=== PATIENT | male | born 1945 | race Caucasian/White ===

== ENCOUNTER 2021-03-01 14:28 | Outpatient (REF) | payer MEDICARE, OTHER, SELFPAY | END 2021-03-01 14:29 | disposition home or self-care (01) | LOC: HO.LAB 14:28 | PROVIDERS: Visit Provider Physician Assistant Medical | DX: Z20.822 Contact with and (suspected) exposure to COVID-19 (principal); B34.9 Viral infection, unspecified | CPT/HCPCS: U0003; U0005 ==

== ENCOUNTER 2021-08-30 08:28 | Outpatient (REF) | payer MEDICARE, OTHER, SELFPAY ==
[2021-08-30 08:55] LABS: COVID-19 Test Positive (Negative)
== END 2021-08-30 08:29 | disposition home or self-care (01) ==
LOC: HO.LAB 08:28
PROVIDERS: PCP Internal Medicine; Visit Provider Internal Medicine
DX: Z20.822 Contact with and (suspected) exposure to COVID-19 (principal)
CPT/HCPCS: 87635; C9803

== ENCOUNTER 2022-03-23 08:24 | Outpatient (REF) | payer MEDICARE, OTHER, SELFPAY ==
[2022-03-23 08:54] LABS: COVID-19 Test Negative (Negative); IDNOW Serial# 16C4AD1C
== END 2022-03-23 08:25 | disposition home or self-care (01) ==
LOC: HO.LAB 08:24
PROVIDERS: Visit Provider Internal Medicine
DX: Z20.822 Contact with and (suspected) exposure to COVID-19 (principal)
CPT/HCPCS: 87635; C9803

== ENCOUNTER 2024-05-29 09:36 | Emergency (ER) | payer OTHER, SELFPAY ==
[2024-05-29 09:59] VITALS: BP 145/58; PULSE 68; RESP 16; TEMP 37; O2SAT 98; BMI 35.4
--- OUTSIDE RECORDS SUMMARY | 2024-05-29 10:25 | XMS_ITS | Encounter Summary ---
Author Name [facility] [place] [facility] [place] [facility] [place] Address [address] [place] [id number] Care Team Providers Care Turnaround Planner Name Role Phone STACEY HORTON Primary Care Provider Unavaila [facility] Insurance Providers: All historical and current Section Date Range: From patient's date of to the date document was created. This section includes the names of all active insurance providers for the patient. Insurance Provider Type of Coverage Plan Name Start of Policy Coverage End of Policy Coverage Group Number Member ID Insurance Provider's Telephone Number Policy Pena's Name Patient's Relationship to Policy Pena [employer] PREFERRED PROVIDER ORGANIZAT ION (PPO) STAND YON SELF May 29, 2003 [id number] Abdullahi SEVERINO PATIENT MEDICARE (WNR) MEDICARE (M) PART B Jul 18, 2012 PART B [id number] Abdullahi SEVERINO PATIENT MEDICARE (WNR) MEDICARE (M) PART B Jul 18, 2012 PART B [id number] Abdullahi SEVERINO PATIENT MEDICARE (WNR) MEDICARE (M) PART B Jul 18, 2012 PART B [id number] [phone] Abdullahi SEVERINO PATIENT MEDICARE (WNR) MEDICARE (M) PART A Dec 19, 2011 PART A [id number] [phone] Abdullahi SEVERINO PATIENT MEDICARE (WNR) MEDICARE (M) PART A Dec 19, 2011 PART A [id number] Abdullahi SEVERINO PATIENT MEDICARE (WNR) MEDICARE (M) PART A Dec 19, 2011 PART A [id number] [id number] Abdullahi SEVERINO PATIENT Selected Encounter This section includes the information on record at [place] for the Encounter. Date/Time Encounter Type Encounter Description Reason Provider Source May 29, 2023 10:29 AM OFF/OP EST SEPTEMBER X REQ PHY/QHP GENERAL INTERNAL MEDICINE ICD-10-CM E11.9 Type 2 diabetes mellitus without complications GORGE COLLINS Afshin Encounter Template Text not used by [place] Assessments - Encounter Diagnoses This section includes the primary and secondary diagnoses documented for the Encounter. Date/Time Primary/Secondary Diagnosis Diagnosis Name Provider Source May 29, 2023 10:29 AM PRIMARY Type 2 diabetes mellitus without complications GORGE COLLINS [facility] Plan of Treatment: Future Appointments (+ 6 months) and Future Tests (+/- 45 days) The Plan of Treatment section includes future care activities for the [facility] This section includes future appointments and future orders which are active, pending or scheduled. Future Appointments This section includes appointments that were scheduled to occur 6 months from the date of the Encounter, up to a maximum of 20 appointments. The data comes from all [place] treatment facilities. Appointment Date/Time Appointment Type Appointme nt Facility Name Aug 07, 2023 10:00 AM AMBULATORY - MEDICINE [facility] Sep 04, 2023 10:00 AM AMBULATORY - MEDICINE [facility] [place] [facility] Sep 04, 2023 11:00 AM AMBULATORY - MEDICINE [facility] [place] [facility] Sep 05, 2023 09:00 AM AMBULATORY - MEDICINE [facility] [place] [facility] Sep 09, 2023 02:00 PM AMBULATORY - NONE [facility] [place] [facility] September 23, 2023 11:30 AM AMBULATORY - MEDICINE [facility] [place] [facility] October 04, 2023 11:00 AM [facility] Nov 20, 2023 10:00 AM AMBULATORY - MEDICINE [facility] Active, Pending, and Scheduled Orders This section includes a listing of several types of active, pending, and scheduled orders, including clinic medications orders, diagnostic test orders, procedure orders and consult orders; where the start date of the order is 45 days before the date of the Encounter or 45 days after the date of theEncounter. The data comes from all [place] treatment facilities. Test Date/Time Test Type Test Details Facility Name May 05, 2023 12:00 AM Laboratory - Chemistry Order HEMOGLOBIN A1C PANEL BLOOD (LAV-BLOOD) [facility] May 05, 2023 12:00 AM Laboratory - Chemistry Order BASIC METABOLIC PANEL (non-fasting) BLOOD (SST-SERUM) [facility] Vital Signs: All taken on the encounter date This section contains inpatient and outpatient Vital Signs collected on the date of the Encounter. Date/Time Temperature Pulse Blood Pressure Respiratory Rate SP02 Pain Height Weight Body Mass Index Source May 29, 2023 10:14 AM 97 F 66 /min 120/62 mm[Hg] 16 /min 98 % 3 251.4 lb [facility] Social History: Smoking Status (Most current) and Tobacco Use (All prior to encounter date) This section includes the most current, and the historical, smoking and tobacco- related health factors from the [place] facility where the Encounter took place. Current Smoking Status This section includes the most current smoking, or tobacco-related health factor, from the [place] facility where the Encounter took place. Date/Time Current Smoking Status Comment [facility] Apr 05, 2023 11:30 AM VA-TOBACCO FORMER USER [facility] Tobacco Use History This section includes a history of the smoking, or tobacco-related health factors, that were collected on or before the date of the Encounter. The data comes from the [place] facility where the Encounter took place. Date/Time Smoking Status/Tobac co Use Comment Facility Apr 05, 2023 11:30 AM CO-TOBACCO QUIT 15 YRS OR MORE [facility] Dec 28, 2021 09:30 AM VA-TOBACCO FORMER USER [facility] Dec 28, 2021 09:30 AM VA-TOBACCO QUIT 15 YRS OR MORE [facility] [place] [facility] Dec 02, 2020 09:00 AM VA-TOBACCO FORMER USER [facility] [place] [facility] Dec 02, 2020 09:00 AM VA-TOBACCO QUIT 15 YRS OR MORE [facility] [place] [facility] Aug 18, 2019 03:19 PM VA-TOBACCO FORMER USER [facility] [place] [facility] Aug 18, 2019 03:19 PM VA-TOBACCO QUIT 15 YRS OR MORE [facility] [place] [facility] September 23, 2018 09:58 AM VA-TOBACCO FORMER USER [facility] [place] [facility] September 23, 2018 09:58 AM VA-TOBACCO QUIT 15 YRS OR MORE [facility] [place] [facility] September 30, 2017 09:20 AM QUIT TOBACCO USE > 7 YEARS AGO [facility] [place] [facility] Aug 20, 2016 09:17 AM QUIT TOBACCO USE > 7 YEARS AGO quit 1991 [facility] [place] [facility] Jun 27, 2016 09:45 AM CURRENT SMOKER Quit 25 years ago [facility] [place] [facility] Apr 18, 2015 09:06 AM QUIT TOBACCO USE > 7 YEARS AGO quit in 1991 [facility] [place] [facility] Mar 21, 2005 10:12 AM HISTORY OF SMOKING [facility] [place] [facility] Mar 21, 2005 10:12 AM QUIT TOBACCO USE > 7 [facility] Advance Directives: All historical and current Section Date Range: From patient's date of to the date document was created. This section includes ALL of a patient's completed or amended [place] Advance and Rescinded Directives. The entries below indicate that a directive exists for the patient, but an actual copy is not included with this document. The data comes from all [place] facilities. Date Advance Directives Provider Source Feb 04, 2019 ADVANCE DIRECTIVE CESAR LUA [facility] Encounter Notes: All associated encounter notes This section contains the clinical notes associated to the Encounter. Date/Time Encounter Note(s) Provider Source May 29, 2023 10:31 AM DIABETOLOGY NOTE: LOCAL TITLE: GLUCOSE PATIENT METER DATA STANDARD TITLE: DIABETOLOGY NOTE DATE OF NOTE: MAY 29, 2023@10:31 ENTRY DATE: MAY 29, 2023@10:31:28 AUTHOR: GORGE COLLINS COSIGNER: URGENCY: STATUS: COMPLETED Name: CARL SEVERINO : 1945 ID: [id number] Information from [facility] on 05/29/2023 Patient Name: CARL SEVERINO Date Range: 05/16/2023 - 05/29/2023 bG values are displayed in mg/dL # of tests 36 Average 194 SD 59.4 Highest 372 Lowest 89 Avg tests/day 2.6 # HI 0 # LO 0 <70 0.0% 70-140 19.4% >140 80.6% Hypos(<50) 0 Date Range: 05/16/2023 - 05/29/2023 bG values are displayed in mg/dL 00:00- 05:30- 08:00- 11:00- 12:30- 17:00- 18:30- :30- 05:30 08:00 11:00 12:30 17:00 18:30 21:30 00:00 Jody 05/16/2023 224 266 155 05/17/2023 192 194 05/18/2023 187 189 186 05/19/2023 89 165 372 05/20/2023 107 05/21/2023 222 183 175 173 05/22/2023 132 346 Jody 05/23/2023 112 204 267 05/24/2023 182 225 05/25/2023 117 210 05/26/2023 218 240 05/27/2023 196 222 140 05/28/2023 259 186 185 165 05/29/2023 136 155 Date Range: 05/16/2023 - 05/29/2023 bG values are displayed in mg/dL 00:00- 05:30- 08:00- 11:00- 12:30- 17:00- 18:30- 21:30- 05:30 08:00 11:00 12:30 17:00 18:30 21:30 00:00 # of tests 3 4 14 3 4 0 1 7 Average 206 166 171 184 199 0 140 259 SD 63.1 50.3 44.7 34.4 23.5 0 75.5 Hi/Lo 0 0 0 0 0 0 0 0 Date Range: 05/16/2023 - 05/29/2023 bG values are displayed in mg/dL 05/16/2023 7:28 AM 224 8:58 AM 266 11:36 AM 155 05/17/2023 5:36 AM 192 9:47 AM 194 05/18/2023 9:39 AM 187 10:24 AM 186 10:23 PM 189 05/19/2023 8:16 AM 89 1:03 PM 165 10:32 PM 372 05/20/2023 9:20 AM 107 05/21/2023 1:18 AM 222 9:48 AM 183 11:18 AM 175 11:46 PM 173 05/22/2023 7:29 AM 132 11:23 PM 346 05/23/2023 8:01 AM 112 1:45 PM 204 10:36 PM 267 05/24/2023 10:27 AM 182 10:37 PM 225 05/25/2023 5:30 AM 117 4:22 PM 210 05/26/2023 12:48 PM 218 11:23 PM 240 05/27/2023 8:57 AM 196 12:02 PM 222 8:43 PM 140 05/28/2023 4:10 AM 259 9:35 AM 186 10:12 AM 185 10:56 AM 165 05/29/2023 1:51 AM 136 9:50 AM 155 End of information from [facility] // Gorge Collins LPN Licensed Practical Nurse Signed: 05/29/2023 10:32 GORGE COLLINS [facility] [place] [facility] May 29, 2023 10:29 AM DIABETOLOGY NOTE: LOCAL TITLE: INSULIN PUMP/CGM DOWNLOAD (T) STANDARD TITLE: DIABETOLOGY NOTE DATE OF NOTE: MAY 29, 2023@10:29 ENTRY DATE: MAY 29, 2023@10:29:42 AUTHOR: GORGE COLLINS EXP COSIGNER: URGENCY: STATUS: COMPLETED Please select: Personal Continuous Glucose Monitor Date of Documentation:May Please see attached scanned document in [facility]. Bhargav 2 Diabetes Type 2 Last upload was 05/07/2023. Also downloading Carola /skinny/ Gorge Collins LPN Licensed Practical Nurse Signed: 05/29/2023 10:31 GORGE COLLINS [facility]
--- OUTSIDE RECORDS SUMMARY | 2024-05-29 10:25 | XMS_ITS | Encounter Summary ---
Author Name [facility] [place] Address [address] [place] [address] Care Team Providers Care Staff Consultant Name Role Phone STACEY HORTON [facility] Insurance Providers: All historical and current Section [...] STAND YON SELF May 29, [phone] [id number] Abdullahi SEVERINO PATIENT MEDICARE (WNR) MEDICARE (M) PART B Jul 18, 2012 PART B [id number] Abdullahi SEVERINO PATIENT MEDICARE (WNR) MEDICARE (M) PART B Jul 18, 2012 PART B [id number] Abdullahi SEVERINO PATIENT MEDICARE (WNR) MEDICARE (M) PART B Jul 18, 2012 PART B [id number] Abdullahi SEVERINO PATIENT MEDICARE (WNR) MEDICARE (M) PART A Dec 19, 2011 PART A [id number] [phone] Abdullahi SEVERINO PATIENT MEDICARE (WNR) MEDICARE (M) PART A Dec 19, 2011 PART A [id number] [phone] Abdullahi SEVERINO PATIENT MEDICARE (WNR) MEDICARE (M) PART A Dec 19, 2011 PART A [id number] Abdullahi SEVERINO PATIENT Selected Encounter This section includes the information on record at [place] for the Encounter. Date/Time Encounter Type Encounter Description Reason Provider Source May 29, 2023 11:00 AM OFFICE O/P EST HI 40 MIN ENDOCRINOLOGY ICD-10-CM E11.9 Type 2 diabetes mellitus without complications VELASCODEISY Afshin Encounter Template Text not used by [place] Assessments - Encounter Diagnoses This section includes the primary and secondary diagnoses documented for the Encounter. Date/Time Primary/Secondary Diagnosis Diagnosis Name Provider Source May 29, 2023 12:03 PM PRIMARY Type 2 diabetes mellitus without complications [facility] [place] [facility] May 29, 2023 12:03 PM SECONDARY Chronic kidney disease, stage 1 [facility] [facility] May 29, 2023 12:03 PM SECONDARY Essential (primary) hypertension [facility] [place] [facility] May 29, 2023 12:03 PM SECONDARY Mixed hyperlipidemia [facility] [place] [facility] May 29, 2023 12:03 PM SECONDARY Obesity, unspecified [facility] [place] [facility] May 29, 2023 12:03 PM SECONDARY Type 2 diabetes mellitus w diabetic chronic kidney disease [facility] CNT [place] [facility] Plan of Treatment: Future Appointments (+ 6 months) and Future Tests (+/- 45 days) The Plan of Treatment section includes future care activities for the patient from all [place] treatmentfacilities. This section includes future appointments and future orders which are active, pending or scheduled. Future Appointments This section includes appointments that were scheduled to occur 6 months from the date of the Encounter, up to a maximum of 20 appointments. The data comes from all [place] treatment facilities. Appointment Date/Time Appointment Type Appointme nt Facility Name Aug 07, 2023 10:00 AM AMBULATORY - MEDICINE [place] [place] Sep 04, 2023 10:00 AM AMBULATORY - MEDICINE [place] [facility] Sep 04, 2023 11:00 AM AMBULATORY - MEDICINE [place] [facility] [place] [facility] Sep 05, 2023 09:00 AM AMBULATORY - MEDICINE [place] [facility] [place] [facility] Sep 09, 2023 02:00 PM AMBULATORY - NONE [place] [facility] September 23, 2023 11:30 AM AMBULATORY - MEDICINE [place] [facility] October 04, 2023 11:00 AM AMBULATORY - MEDICINE [place] [facility] Nov 20, 2023 10:00 AM [facility] Active, Pending, and Scheduled Orders This section includes a listing of several types of active, pending, and scheduled orders, including clinic medications orders, diagnostic test orders, procedure orders and consult orders; where the start date of the order is 45 days before the date of the Encounter or 45 days after the date of theEncounter. The data comes from all [facility]. Test Date/Time Test Type Test Details Facility Name May 05, 2023 12:00 AM Laboratory - Chemistry Order HEMOGLOBIN A1C PANEL BLOOD ([facility] May 05, 2023 12:00 AM Laboratory - Chemistry Order BASIC METABOLIC PANEL (non-fasting) BLOOD (SST-SERUM) [facility] Vital Signs: All taken on the encounter date This section contains inpatient and outpatient Vital Signs collected on the date of the Encounter. Date/Time Temperature Pulse Blood Pressure Respiratory Rate SP02 Pain Height Weight Body Mass Index Source May 29, 2023 10:14 AM 97 F 66 /min 120/62 mm[Hg] 16 /min 98 % 3 251.4 lb 35 [facility] Social History: Smoking Status (Most current) and Tobacco Use (All prior to encounter date) This section includes the most current, and the historical, smoking and tobacco- related health factors from the [place] facility where the Encounter took place. Current Smoking Status This section includes the most current smoking, or tobacco-related health factor, from the [place] facility where the Encounter took place. Date/Time Current Smoking Status Comment [facility] Apr 05, 2023 11:30 AM VA-TOBACCO FORMER USER [place] [facility] Tobacco Use History This section includes a history of the smoking, or tobacco-related health factors, that were collected on or before the date of the Encounter. The data comes from the [place] facility where the Encounter took place. Date/Time Smoking Status/Tobac co Use Comment Facility Apr 05, 2023 11:30 AM VA-TOBACCO QUIT 15 YRS OR MORE [place] [facility] [place] [facility] Dec 28, 2021 09:30 AM VA-TOBACCO FORMER USER [place] [facility] [place] [facility] Dec 28, 2021 09:30 AM VA-TOBACCO QUIT 15 YRS OR MORE [place] [facility] [place] [facility] Dec 02, 2020 09:00 AM VA-TOBACCO FORMER USER [place] [place] [facility] Dec 02, 2020 09:00 AM VA-TOBACCO QUIT 15 YRS OR MORE [place] [facility] [place] [facility] Aug 18, 2019 03:19 PM VA-TOBACCO FORMER USER [place] [facility] [place] [facility] Aug 18, 2019 03:19 PM VA-TOBACCO QUIT 15 YRS OR MORE [place] [facility] [place] [facility] September 23, 2018 09:58 AM VA-TOBACCO FORMER USER [place] [facility] [place] [facility] September 23, 2018 09:58 AM VA-TOBACCO QUIT 15 YRS OR MORE [place] [facility] [place] [facility] September 30, 2017 09:20 AM QUIT TOBACCO USE > 7 YEARS AGO [place] [facility] [place] [facility] Aug 20, 2016 09:17 AM QUIT TOBACCO USE > 7 YEARS AGO quit 1991 [place] [facility] [place] [facility] Jun 27, 2016 09:45 AM CURRENT SMOKER Quit 25 years ago [place] [facility] [place] [facility] Apr 18, 2015 09:06 AM QUIT TOBACCO USE > 7 YEARS AGO quit in 1991 [place] [facility] [place] [facility] Mar 21, 2005 10:12 AM HISTORY OF SMOKING [place] [facility] [place] [facility] Mar 21, 2005 10:12 AM QUIT TOBACCO USE > 7 YEARS AGO [place] [facility] [place] [facility] Advance Directives: All historical and current Section Date Range: From patient's date of to the date document was created. This section includes ALL of a patient's completed or amended [place] Advance and Rescinded Directives. The entries below indicate that a directive exists for the patient, but an actual copy is not included with this document. The data comes from all [place] facilities. Date Advance Directives Provider Source Feb 04, 2019 ADVANCE DIRECTIVE CESAR LUA [place] [facility] Encounter Notes: All associated encounter notes This section contains the clinical notes associated to the Encounter. 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 Weight is stable overall. From last note, he was thinking of restarting Kcal counting, Motivated by concern for kidneys and to feel better. 10 important because of need to be healthy for his grandson . This regains. Wearing a [employer] lynn 2 glucose sensor. All endocrine labs were reviewed with the patient. Barriers/s supports for care: grandson lives with him. Medications for diabetes: empagliflozin, metformin, U500 95/85/80 BG readings: CGM Collection DT Spec HGBA1c 04/25/2023 08:45 BLOOD 6.7 H 01/22/2023 09:03 BLOOD 8.0 H 10/18/2022 10:16 BLOOD 7.7 H 06/22/2022 08:29 BLOOD 8.4 H 03/15/2022 08:19 BLOOD 8.6 H Weight trend: Stable 249 lbs BMI 34.8 Food insecurity no Pattern of eating throughout the day: Three meals Physical activity: limited by OA, lots of walking Carbohydrate counting: well informed Episodes of hypoglycemia: one time Hypoglycemia unawareness: Neuropathy pain: No burning or numbness Last eye evaluation: 05/[address] has appt next week. Last nephropathy screen MICROALBUMIN Apr 25, 2023@08:45 URINE mALB/Cr: 137.0 H mg/G 0 - 29.9 FindingsCREATININE-EGFR 04/25/23 08:45 0.94 01/22/23 09:03 1.07 10/18/22 10:16 0.83 Apr 25 Jan 22 Statin therapy: 2022 2022 CHOL 119 135 mg/dL <7 - 199 TRIG 709 H 550 H mg/dL 0 - 150 HDL 29 L 31 L mg/dL 40 - 60 LDL-d 39 45 mg/dL <55 CAD: present On asa: yes emergency kit/glucose tabs: has glucagon at home, states grandson knows how to use Active problems - Computerized Problem List is the source for the followin. Knee pain 2. Diabetes mellitus type 2 3. Chronic kidney disease stage 1 due to type 2 diabetes mellitus 4. Cancer screening follow up 5. Anxiety 6. Eating disorder 7. Obstructive sleep apnea syndrome 8. Arteriosclerotic heart disease 9. Obesity (SNOMED CT 871243839) 10. Hyperlipidemia (SNOMED CT 31478795) 11. Benign essential hypertension (SNOMED CT 0690370) 12. Venous Insufficiency Active Outpatient Medications (including Supplies): ACCU-CHEK GUIDE (GLUCOSE) TEST STRIP USE 1 STRIP TO TEST ACTIVE BLOOD SUGARS THREE TIMES A DAY FOR SENSOR FAILURE ATORVASTATIN CALCIUM 80MG TAB TAKE ONE TABLET BY MOUTH ACTIVE ONCE DAILY FOR CHOLESTEROL EMPAGLIFLOZIN 25MG TAB TAKE ONE TABLET BY MOUTH ONCE DAILY ACTIVE FOR DIABETES FENOFIBRATE 145MG TAB TAKE ONE TABLET BY MOUTH ONCE DAILY ACTIVE FOR HIGH CHOLESTEROL FISH OIL 1000MG (500MG DHA/EPA) CAP TAKE TWO CAPSULES BY HOLD This is a recent increase MOUTH TWICE DAILY GLUCOSE SENSOR FREESTYLE LYNN 2 USE 1 SENSOR DIRECTED ACTIVE EVERY 14 DAYS HYDROCHLOROTHIAZIDE 25MG TAB TAKE ONE TABLET BY MOUTH ONCE ACTIVE DAILY FOR HIGH BLOOD PRESSURE INSULIN CONC REG HUM 500 UNT/ML KWIKPEN INJECT DIRECTED ACTIVE SUBCUTANEOUSLY THREE TIMES A DAY CONCENTRATED INSULIN - 95 UNITS IN THE MORNING, 80 UNITS AT NOON AND 80 UNITS IN THE EVENING BEFORE FOOD DO NOT ADJUST DOSE WITHOUT THE CONSENT OF YOUR PATIENT ASSISTANT. METFORMIN HCL 500MG TAB TAKE ONE TABLET BY MOUTH TWICE ACTIVE DAILY FOR DIABETES METOPROLOL SUCCINATE 25MG SA TAB TAKE ONE-HALF TABLET BY HOLD MOUTH ONCE DAILY FOR BLOOD PRESSURE/HEART SPIRONOLACTONE 25MG TAB TAKE ONE TABLET BY MOUTH ONCE ACTIVE DAILY VALSARTAN 320MG TAB TAKE ONE TABLET BY MOUTH ONCE DAILY ACTIVE Non-VA AMLODIPINE BESYLATE 5MG TAB 5MG BY MOUTH ONCE DAILY ACTIVE Non-VA ASPIRIN 81MG EC TAB 81MG BY MOUTH ONCE DAILY ACTIVE SHX: as above ROS: no cough or fever PE: affect pleasant appropriate speaking easily in full sentences Feet pulses not palpable sensory to monofilament marked decrease lesions no Medical Decision Making: 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 However his TG were quite elevated prior to increase in fish oil. Insulin Dose: U500 100/85/75 Reviewed roloe of CHO consistency in preventing hypoglycemia Carbohydrate targets 45 gm TID Blood sugar targets 130 premeal and 150-180 after Hemoglobin A1c Targets 7.5 Obesity: recommend kcal counting to a target [id number] kcal He will also rejoin teleMOVE to lose weight Hypertension well controlled Hyperlipidemia well controlled Team follow up Has follow up with DM educator in July lab FLP BMP Hgba1c microalb next visit Insulin orders updated in cprs F/u three mos FTF Medication Reconciliation: Outpatient: Has the patient been taking medications as documented in the EMLR? No: Discrepencies were identified. See below. Essential Medication List for Review used to complete this medication reconciliation. INCLUDED IN THIS LIST: Alphabetical list of active outpatient prescriptions dispensed from this VA (local) and dispensed from another VA or DoD facility (remote) as well as inpatient orders (local, pending and active), local clinic medications, locally documented non-VA medications, and local prescriptions that have or been discontinued in the past 90 days. - Discrepancies were identified, addressed, and discussed with the patient/caregiver at this encounter. - All changes in medications, including all non-VA/Herbal/OTC medications were entered into CPRS. - If there were any medications the patient should no longer take, they were discontinued. - The patient/caregiver was instructed to update this list, discard old lists, and take this list to the next appointment, whether with a VA or non-VA provider. WHOLE HEALTH SHARED GOAL (Focus area honoring [place] MAP & Team priorities) He will return to teleMOVE (which he succeeded with), and start to count KCAL to a target [id number] KCAL to lose weight /es/ DEISY VELASCO MD STAFF PHYSICIAN Signed: 05/29/2023 12:03 DEISY VELASCO [facility] [place] [facility] May 17, 2023 09:34 AM NURSING OUTPATIENT NOTE: LOCAL TITLE: NURSING/SPECIALTY CLINIC NOTE STANDARD TITLE: NURSING OUTPATIENT NOTE DATE OF NOTE: MAY 17, 2023@09:34 ENTRY DATE: MAY 17, 2023@09:34:08 AUTHOR: ZULEIKA BRITTON COSIGNER: URGENCY: STATUS: COMPLETED Telephone call to as a reminder of upcoming Endocrine visit. Left voice message of above. /skinny/ ZULEIKA BRITTON LPN Specialty Care Signed: 05/17/2023 09:34 ZULEIKA BRITTON [facility]
--- OUTSIDE RECORDS SUMMARY | 2024-05-29 10:25 | XMS_ITS | Encounter Summary ---
Author Name [facility] [place] Address [address] [place] [address] Care Team Providers Care Manager Van Name Role Phone STACEY HORTON Primary Care Provider Unavail ble Insurance Providers: All historical and current Section [...] STAND YON SELF May 29, [phone] [id number] [phone] Abdullahi SEVERINO PATIENT MEDICARE (WNR) MEDICARE (M) PART B Jul 18, 2012 PART B [id number] Abdullahi SEVERINO PATIENT MEDICARE (WNR) MEDICARE (M) PART B Jul 18, 2012 PART B [id number] Abdullahi SEVERINO PATIENT MEDICARE (WNR) MEDICARE (M) PART B Jul 18, 2012 PART B [id number] [phone] Abdullahi SEVERINO PATIENT MEDICARE (WNR) MEDICARE (M) PART A Dec 19, 2011 PART A [id number] Abdullahi SEVERINO PATIENT MEDICARE (WNR) MEDICARE (M) PART A Dec 19, 2011 PART A [id number] Abdullahi SEVERINO PATIENT MEDICARE (WNR) MEDICARE (M) PART A Dec 19, 2011 PART A [id number] [phone] Abdullahi SEVERINO PATIENT Selected Encounter This section includes the information on record at [place] for the Encounter. Date/Time Encounter Type Encounter Description Reason Provider Source Jun 06, 2023 06:27 AM POS AIRWAY PRESSURE FILTER SLEEP MEDICINE ICD-10-CM G47.33 Obstructive sleep apnea (adult) (pediatric) [place] [facility] Encounter Template Text not used by [place] Assessments - Encounter Diagnoses This section includes the primary and secondary diagnoses documented for the Encounter. Date/Time Primary/Secondary Diagnosis Diagnosis Name Provider Source Jun 06, 2023 06:29 AM PRIMARY Obstructive sleep apnea (adult) (pediatric) [place]G [place] [facility] [place] [facility] Plan of Treatment: Future Appointments (+ 6 months) and Future Tests (+/- 45 days) The Plan of Treatment section includes future care activities for the [facility] [place] [facility] This section includes future appointments and future orders which are active, pending or scheduled. Future Appointments This section includes appointments that were scheduled to occur 6 months from the date of the Encounter, up to a maximum of 20 appointments. The data comes from all [place] treatment facilities. Appointment Date/Time Appointment Type Appointme nt Facility Name Aug 07, 2023 10:00 AM AMBULATORY - MEDICINE [facility] Sep 04, 2023 10:00 AM AMBULATORY - MEDICINE [place] [facility] Sep 04, 2023 11:00 AM AMBULATORY - MEDICINE [place] C [place] [facility] Sep 05, 2023 09:00 AM AMBULATORY - MEDICINE [place] C [place] [facility] Sep 09, 2023 02:00 PM AMBULATORY - NONE [place] [facility] [place] [facility] September 23, 2023 11:30 AM AMBULATORY - MEDICINE [place] C [place] [facility] October 04, 2023 11:00 AM AMBULATORY - MEDICINE [place] C [place] [facility] Nov 20, 2023 10:00 AM [facility] Dec 05, 2023 10:30 AM AMBULATORY - MEDICINE [facility] Active, Pending, and Scheduled Orders This section includes a listing of several types of active, pending, and scheduled orders, including clinic medications orders, diagnostic test orders, procedure orders and consult orders; where the start date of the order is 45 days before the date of the Encounter or 45 days after the date of theEncounter. The data comes from all [place] treatment facilities. Test Date/Time Test Type Test Details Facility Name May 05, 2023 12:00 AM Laboratory - Chemistry Order BASIC METABOLIC PANEL (non-fasting) BLOOD ([facility]ERUM[facility] May 05, 2023 12:00 AM Laboratory - Chemistry Order HEMOGLOBIN A1C PANEL BLOOD (LAV-BLOOD) [facility] Social History: Smoking Status (Most current) and Tobacco Use (All prior to encounter date) This section includes the most current, and the historical, smoking and tobacco- related health factors from the [place] facility where the Encounter took place. Current Smoking Status This section includes the most current smoking, or tobacco-related health factor, from the [place] facility where the Encounter took place. Date/Time Current Smoking Status Comment [facility] Apr 05, 2023 11:30 AM VA-TOBACCO FORMER USER [facility] Tobacco Use History This section includes a history of the smoking, or tobacco-related health factors, that were collected on or before the date of the Encounter. The data comes from the [place] facility where the Encounter took place. Date/Time Smoking Status/Tobac co Use Comment Facility Apr 05, 2023 11:30 AM VA-TOBACCO QUIT 15 YRS OR MORE [place] [facility] Dec 28, 2021 09:30 AM VA-TOBACCO FORMER USER [place] [facility]TRL [place] [facility] Dec 28, 2021 09:30 AM VA-TOBACCO QUIT 15 YRS OR [facility] [place] [facility] Dec 02, 2020 09:00 AM [facility]BACCO [facility] Dec 02, 2020 09:00 AM VA-TOBACCO QUIT [facility] YRS OR [facility] Aug 18, 2019 03:19 PM VA-TOBACCO FORMER USER ID [facility]TR [facility] Aug 18, 2019 03:19 PM VA-TOBACCO QUIT 15 YRS OR MORE [place] [place] [facility] September 23, 2018 09:58 AM VA-TOBACCO FORMER USER [facility] September 23, 2018 09:58 AM VA-TOBACCO QUIT 15 YRS OR MORE [place] [facility] [place] [facility] September 30, 2017 09:20 AM QUIT TOBACCO USE > 7 YEARS AGO [facility] [place] [facility] Aug 20, 2016 09:17 AM QUIT TOBACCO USE > 7 YEARS AGO quit [facility] Jun 27, 2016 09:45 AM CURRENT SMOKER Quit 25 years ago [facility] Apr 18, 2015 09:06 AM QUIT TOBACCO USE > 7 YEARS AGO quit [facility] 1991 [facility] Mar 21, 2005 10:12 AM HISTORY OF SMOKING [facility] [place] [facility] Mar 21, 2005 10:12 AM QUIT TOBACCO USE > 7 YEARS AGO [facility] Advance Directives: All historical and current Section Date Range: From patient's date of to the date document was created. This section includes ALL of a patient's completed or amended [place] Advance and Rescinded Directives. The entries below indicate that a directive exists for the patient, but an actual copy is not included with this document. The data comes from all [place] facilities. Date Advance Directives Provider Source Feb 04, 2019 ADVANCE DIRECTIVE CESAR LUA [facility] Encounter Notes: All associated encounter notes This section contains the clinical notes associated to the Encounter. Date/Time Encounter Note(s) Provider Source Jun 06, 2023 06:27 AM RESPIRATORY THERAP Y NOTE: LOCAL TITLE: RESPIRATORY THERAPY NOTE(BLANK) STANDARD TITLE: RESPIRATORY THERAPY NOTE DATE OF NOTE: JUN 06, 2023@06:27 ENTRY DATE: JUN 06, 2023@06:27:48 AUTHOR: LA JUNG EXP COSIGNER: URGENCY: STATUS: COMPLETED RESPIRATORY THERAPY NOTE(BLANK) Has ADDENDA diagnosed with sleep apnea had Airview data download after device replacement. AirView Compliance Report Usage 05/08/2023 - 06/05/2023 Usage days 27/29 days (93%) >= 4 hours 6 days (21%) < 4 hours 21 days (72%) Usage hours 69 hours 28 minutes Average usage (total days) 2 hours 24 minutes Average usage (days used) 2 hours 34 minutes Median usage (days used) 2 hours 18 minutes Total used hours (value since last reset - 06/05/2023) 69 hours AirSense 11 AutoSet Serial number [id number] Mode CPAP Set pressure 15 cmH2O EPR Fulltime EPR level 2 Therapy Leaks - L/min Median: 10.1 95th percentile: 51.2 Maximum: 68.5 Events per hour AI: 1.7 HI: 1.2 AHI: 2.9 Apnea Index Central: 0.1 Obstructive: 0.1 Unknown: 1.5 RERA Index 0.2 [employer] respiration (average duration per night) 4 minutes (3%) /skinny/ [place] J[facility]G RESPIRATORY THERAPIST Signed: 06/06/2023 06:30 06/06/2023 ADDENDUM STATUS: COMPLETED Additional supplies ordered via [facility]. /skinny/ [place] [facility] RESPIRATORY THERAPIST Signed: 06/06/2023 06:33 [place]L [facility]N [facility]
--- OUTSIDE RECORDS SUMMARY | 2024-05-29 10:25 | XMS_ITS | Encounter Summary ---
Author Name [facility] [place] [facility] [place] Address [address] [place] [address] Care Team Providers Care Poultry Packer Name Role Phone STACEY HORTON Primary Care Provider Unavaila ble Insurance Providers: All historical and current [...] STAND YON SELF May 29, [phone] [id number] Abdullahi SEVERINO PATIENT MEDICARE (WNR) MEDICARE (M) PART B Jul 18, 2012 PART B [id number] [phone] Abdullahi SEVERINO PATIENT MEDICARE (WNR) MEDICARE (M) PART B Jul 18, 2012 PART B [id number] [phone] Abdullahi SEVERINO PATIENT MEDICARE (WNR) MEDICARE (M) PART B Jul 18, 2012 PART B [id number] Abdullahi SEVERINO PATIENT MEDICARE (WNR) MEDICARE (M) PART A Dec 19, 2011 PART A [id number] Abdullahi SEVERINO PATIENT MEDICARE (WNR) MEDICARE (M) PART A Dec 19, 2011 PART A [id number] [phone] Abdullahi SEVERINO PATIENT MEDICARE (WNR) MEDICARE (M) PART A Dec 19, 2011 PART A [id number] [phone] Abdullahi SEVERINO PATIENT Selected Encounter This section includes the information on record at [place] for the Encounter. Date/Time Encounter Type Encounter Description Reason Pro vider Source May 29, 2023 10:04 AM Outpatient Encounter PRIMARY CARE/MEDICINE IHE Encounter Template Text not used by [place] Plan of Treatment: Future Appointments (+ 6 months) and Future Tests (+/- 45 days) The Plan of Treatment section includes future care activities for the patient from all [place] treatmentfacilities. This section includes future appointments and future orders which are active, pending or scheduled. Future Appointments This section includes appointments that were scheduled to occur 6 months from the date of the Encounter, up to a maximum of 20 appointments. The data comes from all [place] treatment facilities. Appointment Date/Time Appointment Type Appointme nt Facility Name Aug 07, 2023 10:00 [facility] Sep 04, 2023 10:00 AM AMBULATORY - MEDICINE [place] [facility] [place] [facility] Sep 04, 2023 11:00 AM AMBULATORY - MEDICINE [place] [facility] [place] [facility] Sep 05, 2023 09:00 AM AMBULATORY - MEDICINE [place] [facility] [place] [facility] Sep 09, 2023 02:00 PM AMBULATORY - NONE [facility] [place] [facility] September 23, 2023 11:30 AM AMBULATORY - MEDICINE [place] [facility] [place] [facility] October 04, 2023 11:00 AM AMBULATORY - MEDICINE [place] [facility] [place] [facility] Nov 20, 2023 10:00 AM AMBULATORY - [place]ICINE [place] Active, Pending, and Scheduled Orders This section includes a listing of several types of active, pending, and scheduled orders, including clinic medications orders, diagnostic test orders, procedure orders and consult orders; where the start date of the order is 45 days before the date of the Encounter or 45 days after the date of theEncounter. The data comes from all [place] treatment facilities. Test Date/Time Test Type Test Details Facility Name May 05, 2023 12:00 AM Laboratory - Chemistry Order BASIC METABOLIC PANEL (non-fasting) [facility] [place] [facility] May 05, 2023 12:00 AM Laboratory - Chemistry Order HEMOGLOBIN A1C PANEL BLO[facility] ([facility]BLOOD[facility] Vital Signs: All taken on the encounter date This section contains inpatient and outpatient Vital Signs collected on the date of the Encounter. Date/Time Temperature Pulse Blood Pressure Respiratory Rate SP02 Pain Height Weight Body Mass Index Source May 29, 2023 10:14 AM 97 F 66 /min 120/62 mm[Hg] 16 /min 98 % 3 251.4 lb 35 [place] [facility] Social History: Smoking Status (Most current) and Tobacco Use (All prior to encounter date) This section includes the most current, and the historical, smoking and tobacco- related health factors from the [place] facility where the Encounter took place. Current Smoking Status This section includes the most current smoking, or tobacco-related health factor, from the [place] facility where the Encounter took place. Date/Time Current Smoking Status Comment [facility] Apr 05, 2023 11:30 AM VA-TOBACCO FORMER USER [facility] Tobacco Use History This section includes a history of the smoking, or tobacco-related health factors, that were collected on or before the date of the Encounter. The data comes from the [place] facility where the Encounter took place. Date/Time Smoking Status/Tobac co Use Comment Facility Apr 05, 2023 11:30 AM VA-TOBACCO QUIT 15 YRS OR MORE [facility] [place] [facility] Dec 28, 2021 09:30 AM VA-TOBACCO FORMER USER [place] [facility] [place] [facility] Dec 28, 2021 09:30 AM VA-TOBACCO QUIT 15 YRS OR MORE [facility] [place] [facility] Dec 02, 2020 09:00 AM VA-TOBACCO FORMER USER [facility] [place] [facility] Dec 02, 2020 09:00 AM VA-TOBACCO QUIT 15 YRS OR MORE [facility] [place] [facility] Aug 18, 2019 03:19 PM VA-TOBACCO FORMER USER [facility] [place] [facility] Aug 18, 2019 03:19 PM VA-TOBACCO QUIT 15 YRS OR MORE [facility] September 23, 2018 09:58 AM VA-TOBACCO FORMER USER [place] [facility] [place] [facility] September 23, 2018 09:58 AM VA-TOBACCO QUIT 15 YRS OR MORE [facility] September 30, 2017 09:20 AM QUIT TOBACCO USE > 7 YEARS AGO [place] [facility] [place] [facility] Aug 20, 2016 09:17 AM QUIT TOBACCO USE > 7 YEARS AGO quit 1991 [facility] Jun 27, 2016 09:45 AM CURRENT SMOKER Quit 25 years ago [facility] Apr 18, 2015 09:06 AM QUIT TOBACCO USE > 7 YEARS AGO quit in 1991 [facility] Mar 21, 2005 10:12 AM HISTORY OF SMOKING [facility] Mar 21, 2005 10:12 AM QUIT TOBACCO USE > 7 YEARS AGO [facility] Advance Directives: All historical and current Section Date Range: From patient's date of to the date document was created. This section includes ALL of a patient's completed or amended [place] Advance and Rescinded Directives. The entries below indicate that a directive exists for the patient, but an actual copy is not included with this document. The data comes from all [place] facilities. Date Advance Directives Provider Source Feb 04, 2019 ADVANCE DIRECTIVE CESAR LUA [facility] Encounter Notes: All associated encounter notes This section contains the clinical notes associated to the Encounter. Date/Time Encounter Note(s) Provider Source May 29, 2023 10:04 AM ADMINISTRATIVE NOTE: LOCAL TITLE: FAX/MAIL RECEIVED STANDARD TITLE: ADMINISTRATIVE NOTE DATE OF NOTE: MAY 29, 2023@10:04 ENTRY DATE: MAY 29, 2023@10:04:12 AUTHOR: AIDAN MONTERO EXP COSIGNER: URGENCY: STATUS: COMPLETED Document Received On: May Document Type: Office Visit Note [facility] Date of Service: May Facility and or Provider: BROUGHT IN BY Contact Information: PCP of Record: STACEY HORTON Next visit with PCP: 05/29/2023 11:00 NHM/ENDOCRINE 08/07/2023 10:00 CWM/SO/DIABETES EDU1 10/04/2023 11:00 CWM/NO/PACT 7 Primary Care May keep copies of this document for up to 14 days and send the original for scanning. /skinny/ AIDAN MONTERO [facility] Signed: 05/29/2023 10:05 AIDAN MONTERO [facility]
--- OUTSIDE RECORDS SUMMARY | 2024-05-29 10:25 | XMS_ITS | Continuity of Care Document ---
Author Name [facility] Organization [facility] Care Team Providers Care Security Solutions Engineer Name Role Phone [facility] Unavailable Unavailable Problems Combined list of problems from Department of Defense and Veterans Affairs facilities. It does not include entries that were removed or entered in error. Problem Status Onset Date Problem Type Date of Resolution Comments Source Anxiety Active Condition [facility] Arteriosclerotic heart disease Active Condition Jul 27, 2015 Entered By: BRANDAN ZAMARRIPA Comment: bypass surgery [facility] 2015 Entered By: BRANDAN ZAMARRIPA Comment: [address] Delarosa, cards Dr. 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 [facility] Diabetes mellitus type 2 Active Condition [facility] Eating disorder Active Condition [facility] Exposure to potentially hazardous substance (SCT [id number]) Active Condition Aug 27 Entered By: JOSE DELGADO Comment: Entered automatically through MOOSE Problem List documentation program [facility] Hyperlipidemia (SNOMED CT [id number]) Active Condition [facility] Knee pain Active Condition [facility] Obesity (SNOMED CT 666435113) Active Condition [facility] Obstructive sleep apnea syndrome Active Condition Aug 20, 2016 Entered By: BRANDAN ZAMARRIPA Comment: dx/tx via [facility] Peripheral neuropathy due to type 2 diabetes mellitus Active Condition [facility] Venous Insufficiency Active Condition [place] [facility] Diagnosis: ICD-10-CM E11.9 Type 2 diabetes mellitus without complications Active Diagnosis [place] [facility] Diagnosis: ICD-10-CM E66.9 Obesity, unspecified Active Diagnosis [place] [facility] Diagnosis: ICD-10-CM I51.9 Heart disease, unspecified Active Diagnosis [place] [facility] Diagnosis: ICD-10-CM I10 Essential (primary) hypertension Active Diagnosis [place] [facility] Diagnosis: ICD-10-CM Z23 Encounter for immunization Active Diagnosis [facility] Diagnosis: ICD-10-CM M25.569 Pain in unspecified knee Active Diagnosis [place] [facility] Diagnosis: ICD-10-CM G47.33 Obstructive sleep apnea (adult) (pediatric) Active Diagnosis [place] [facility] Diagnosis: ICD-10-CM M19.111 Post-traumatic osteoarthritis, right shoulder Active Diagnosis [place] [facility] Diagnosis: ICD-10-CM E78.2 Mixed hyperlipidemia Active Diagnosis [place] [facility] Medications Combined list of outpatient medications from Department of Defense and Veterans Affairs facilities.Medications provided include 1) outpatient medications from the last 15 months, and 2) patient-reported medications. Medication Details Route Status Patient Instructions Prescription Expires Prescription Number Last Dispense Date Ordering Provider Order Date Order Qty Source Alprazolam (GrondAPSX) 100 TABLET in 1 BOTTLE Active [id number] 07/24/19 2 4 2023 1 Pharmac y Data Transac tion Service Facilit y AMLODIPINE BESYLATE (AMLODIPINE BESYLATE), 5 MG, TABLET, ORAL, [facility], 500 ea. BOTTLE Active [id number] 4 2023 90 Pharmac y Data Transac tion Service Facilit y AMLODIPINE BESYLATE 10MG TAB TAKE ONE TABLET BY MOUTH ONCE DAILY FOR BLOOD PRESSURE /HEART, DO NOT TAKE WITH GRAPEFRU IT JUICE ORAL ACTIVE 03/06/2025 [id number] 4 VELASCO,AL ICE 2023 90 [facility] AMLODIPINE BESYLATE 5MG TAB TAKE ONE TABLET BY MOUTH ONCE DAILY ORAL ACTIVE VELASCO,AL ICE 2022 [facility] AMOXICILLIN -CLAVULANAT E POTASS (amoxicilli n/potassium clavulanate ), 875-125 MG, TABLET, ORAL, [employer] [facility],, 20 ea. BOTTLE Active [id number] 2023 14 Pharmac y Data Transac tion Service Facilit y ASPIRIN 81MG TAB,EC TAKE ONE TABLET BY MOUTH ONCE DAILY ORAL ACTIVE VELASCO,AL ICE 2021 [facility] atorvastati n (U/D) 80 MG ORAL TAB TAKE ONE TABLET BY MOUTH ONCE DAILY FOR CHOLESTE ROL 02/07/2024 [id number] DEISY VELASCO 2023 90 [facility] ATORVASTATI N CA 80MG TAB TAKE ONE TABLET BY MOUTH ONCE DAILY FOR CHOLESTE ROL ORAL ACTIVE 03/06/2025 [id number] 4 VELASCO,AL ICE 2023 90 [facility] ATORVASTATI N CA 80MG TAB TAKE ONE TABLET BY MOUTH ONCE DAILY FOR CHOLESTE ROL ORAL DISCONT INUED 12/05/2024 [id number] 4 VELASCO,AL ICE 2023 90 [facility] ATORVASTATI N CA 80MG TAB TAKE ONE TABLET BY MOUTH ONCE DAILY FOR CHOLESTE ROL ORAL DISCONT INUED 02/07/2024 [id number] 4 VELASCO,AL ICE 2022 90 [facility] CICLOPIROX (CICLOPIROX OLAMINE), 0.77%, CREAM(GM), TOPICAL, [employer], 30 g TUBE Active [id number] 4 2023 60 Pharmac y Data Transac tion Service Facilit y CICLOPIROX (CICLOPIROX OLAMINE), 0.77%, CREAM(GM), TOPICAL, [facility], 30 g TUBE Active [id number] 4 2023 60 Pharmac y Data Transac tion Service Facilit y EMPAGLIFLOZ IN 25MG TAB TAKE ONE TABLET BY MOUTH ONCE DAILY FOR DIABETES ORAL ACTIVE 03/06/2025 [id number] VELASCO,AL ICE 2023 90 [facility] Fenofibrate (TriCor Eq.) Tablet 145 mg Oral TAKE ONE TABLET BY MOUTH ONCE DAILY FOR HIGH CHOLESTE ROL 04/30/2024 [id number] DEISY VELASCO 2022 90 [facility] Fenofibrate (TriCor Eq.) Tablet 48 mg Oral TAKE ONE TABLET BY MOUTH ONCE DAILY FOR HIGH CHOLESTE ROL Discont inued 02/09/2024 [id number] MARYBETH KAYDI A 2022 90 [facility] FENOFIBRATE 145MG TAB TAKE ONE TABLET BY MOUTH ONCE DAILY FOR HIGH CHOLESTE ROL ORAL 04/30/2024 [id number] VELASCO,AL ICE 2022 90 [place] [facility] FENOFIBRATE 48MG TAB TAKE ONE TABLET BY MOUTH ONCE DAILY FOR HIGH CHOLESTE ROL ORAL DISCONT INUED (EDIT) 02/09/2024 [id number] 3 BRIELLE KAY I A 2022 90 [facility] FISH OIL 1000MG (500MG DHA/EPA) CAP,ORAL TAKE TWO CAPSULES BY MOUTH TWICE DAILY ORAL 04/30/2024 [id number] VELASCO,AL ICE 2022 400 [facility] GLUCAGON 1MG/CESAR INJ,EMERGEN CY KIT INJECT 1 INJECTIO N INTRAMUS CULARLY ONE TIME NEEDED FOR LOW BLOOD SUGAR INTRAM USCULA R 04/04/2024 [id number] VELASCO,AL ICE 2023 1 [facility] Hydrochloro thiazide (Oretic) Tablet 25 mg Oral TAKE ONE TABLET BY MOUTH ONCE DAILY FOR HIGH BLOOD PRESSURE 04/27/2024 [id number] DEISY VELASCO 2023 90 [facility] Hydrochloro thiazide (Oretic) Tablet 25 mg Oral TAKE ONE TABLET BY MOUTH ONCE DAILY FOR HIGH BLOOD PRESSURE 04/27/2024 [id number] DEISY VELASCO 2022 90 [facility] HYDROCHLORO THIAZIDE 25MG TAB TAKE ONE TABLET BY MOUTH ONCE DAILY FOR HIGH BLOOD PRESSURE ORAL ACTIVE 12/05/2024 [id number] 4 VELASCO,AL ICE 2023 90 [facility] HYDROCHLORO THIAZIDE 25MG TAB TAKE ONE TABLET BY MOUTH ONCE DAILY FOR HIGH BLOOD PRESSURE ORAL DISCONT INUED 04/27/2024 [id number] VELASCO,AL ICE 2022 90 [facility] IBUPROFEN (ibuprofen) , 600 MG, TABLET, ORAL, [facility], 500 ea. BOTTLE Active [id number] 4 2023 30 Pharmac y Data Transac tion Service Facilit y Insulin Regular, Human Recombinant 500U/mL Solution, Subcutaneou s INJECT DIRECTED SUBCUTAN EOUSLY THREE TIMES A DAY 90 UNITS BREAKFAS T, 75 UNITS LUNCH, AND 75 UNITS DINNER. Active 09/04/2024 [id number] 4 DEISY VELASCO 2023 16 [facility] Insulin Regular, Human Recombinant 500U/mL Solution, Subcutaneou s INJECT DIRECTED SUBCUTAN EOUSLY THREE TIMES A DAY CONCEN TRATED INSULIN* * - 95 UNITS IN THE MORNING, 80 UNITS AT NOON AND 80 UNITS IN THE EVENING BEFORE FOOD DO NOT ADJUST DOSE WITHOUT THE CONSENT Discont inued 06/28/2024 [id number] DEISY VELASCO 2023 16 [facility] Insulin Regular, Human Recombinant 500U/mL Solution, Subcutaneou s INJECT DIRECTED SUBCUTAN EOUSLY THREE TIMES A DAY CONCEN TRATED INSULIN* * - 95 UNITS IN THE MORNING, 80 UNITS AT NOON AND 80 UNITS IN THE EVENING BEFORE FOOD DO NOT ADJUST DOSE WITHOUT THE CONSENT Active 06/28/2024 [id number] DEISY VELASCO 2023 16 [facility] Insulin Regular, Human Recombinant 500U/mL Solution, Subcutaneou s INJECT DIRECTED SUBCUTAN EOUSLY THREE TIMES A DAY CONCEN TRATED INSULIN* * - 95 UNITS IN THE MORNING, 80 UNITS AT NOON AND 80 UNITS IN THE EVENING BEFORE FOOD DO NOT ADJUST DOSE WITHOUT THE CONSENT Discont inued 06/26/2024 [id number] DEISY VELASCO 2023 16 [facility] Insulin Regular, Human Recombinant 500U/mL Solution, Subcutaneou s INJECT DIRECTED SUBCUTAN EOUSLY THREE TIMES A DAY CONCEN TRATED INSULIN* * - 95 UNITS IN THE MORNING, 80 UNITS AT NOON AND 80 UNITS IN THE EVENING BEFORE FOOD DO NOT ADJUST DOSE WITHOUT THE CONSENT Active 06/26/2024 [id number] DEISY VELASCO 2023 16 [facility] Insulin Regular, Human Recombinant 500U/mL Solution, Subcutaneou s INJECT DIRECTED SUBCUTAN EOUSLY THREE TIMES A DAY CONCEN TRATED INSULIN* * - 95 UNITS IN THE MORNING, 80 UNITS AT NOON AND 80 UNITS IN THE EVENING BEFORE FOOD DO NOT ADJUST DOSE WITHOUT THE CONSENT Discont inued 03/05/2024 [id number] DEISY VELASCO 2023 16 [facility] Insulin Regular, Human Recombinant 500U/mL Solution, Subcutaneou s INJECT DIRECTED SUBCUTAN EOUSLY THREE TIMES A DAY CONCEN TRATED INSULIN* * - 95 UNITS IN THE MORNING, 80 UNITS AT NOON AND 80 UNITS IN THE EVENING BEFORE FOOD DO NOT ADJUST DOSE WITHOUT THE CONSENT 03/05/2024 [id number] DEISY VELASCO 2022 16 [facility] INSULIN,REG ULAR,HUMAN CONCENTRATE D 500 UNIT/ML INJ,KWIKPEN ,3ML INJECT DIRECTED SUBCUTAN EOUSLY THREE TIMES A DAY CONCEN TRATED INSULIN* * DO NOT ADJUST DOSE WITHOUT THE CONSENT OF YOUR DIABETES SPECIALI ST. 80 UNITS AM, 50 UNITS LUNCH, 40 UNITS DINNER. NO BEDTIME DOSE CONCEN TRATED INSULIN* * DO NOT ADJUST DOSE WITHOUT THE CONSENT OF YOUR DIABETES SPECIALI ST. 80 UNITS AM, 50 UNITS LUNCH, 40 UNITS DINNER. NO BEDTIME DOSE SUBCUT ANEOUS ACTIVE 04/18/2025 [id number] VELASCO,AL ICE 2023 14 [facility] INSULIN,REG ULAR,HUMAN CONCENTRATE D 500 UNIT/ML INJ,KWIKPEN ,3ML INJECT DIRECTED SUBCUTAN EOUSLY FOUR TIMES A DAY FOR DIABETES MELLITUS 80 UNITS AM, 50 UNITS 11:30 AM, 50 UNITS EVENING MEAL, 10 UNITS AT BEDTIME SUBCUT ANEOUS DISCONT INUED (EDIT) 03/06/2025 [id number] VELASCO,AL ICE 2023 14 [facility] INSULIN,REG ULAR,HUMAN CONCENTRATE D 500 UNIT/ML INJ,KWIKPEN ,3ML INJECT DIRECTED SUBCUTAN EOUSLY THREE TIMES A DAY 80 UNITS MORNING, 60 UNITS NOON, AND 65 UNITS EVENING SUBCUT ANEOUS DISCONT INUED (EDIT) 02/21/2025 [id number] 4 VELASCO,AL ICE 2023 14 [facility] INSULIN,REG ULAR,HUMAN CONCENTRATE D 500 UNIT/ML INJ,KWIKPEN ,3ML INJECT DIRECTED 500UNIT/ ML SUBCUTAN EOUSLY THREE TIMES A DAY FOR DIABETES MELLITUS 80 UNITS BREAKFAS T, 80 UNITS LUNCH, 70 UNITS DINNER SUBCUT ANEOUS DISCONT INUED (EDIT) 12/25/2024 [id number] VELASCO,AL ICE 2023 14 [facility] INSULIN,REG ULAR,HUMAN CONCENTRATE D 500 UNIT/ML INJ,KWIKPEN ,3ML INJECT DIRECTED SUBCUTAN EOUSLY THREE TIMES A DAY 90 UNITS BREAKFAS T, 75 UNITS LUNCH, AND 75 UNITS DINNER. SUBCUT ANEOUS DISCONT INUED (EDIT) 09/04/2024 [id number] VELASCO,AL ICE 2023 16 [facility] INSULIN,REG ULAR,HUMAN CONCENTRATE D 500 UNIT/ML INJ,KWIKPEN ,3ML INJECT DIRECTED SUBCUTAN EOUSLY THREE TIMES A DAY CONCEN TRATED INSULIN* * - 95 UNITS IN THE MORNING, 80 UNITS AT NOON AND 80 UNITS IN THE EVENING BEFORE FOOD DO NOT ADJUST DOSE WITHOUT THE CONSENT OF YOUR DIABETES SPECIALI ST. SUBCUT ANEOUS DISCONT INUED (EDIT) 06/28/2024 [id number] VELASCO,AL ICE 2023 16 [facility] INSULIN,REG ULAR,HUMAN CONCENTRATE D 500 UNIT/ML INJ,KWIKPEN ,3ML INJECT DIRECTED SUBCUTAN EOUSLY THREE TIMES A DAY CONCEN TRATED INSULIN* * - 95 UNITS IN THE MORNING, 80 UNITS AT NOON AND 80 UNITS IN THE EVENING BEFORE FOOD DO NOT ADJUST DOSE WITHOUT THE CONSENT OF YOUR DIABETES SPECIALI ST. SUBCUT ANEOUS DISCONT INUED 06/26/2024 [id number] VELASCO,AL ICE 2023 16 [facility] INSULIN,REG ULAR,HUMAN CONCENTRATE D 500 UNIT/ML INJ,KWIKPEN ,3ML INJECT DIRECTED SUBCUTAN EOUSLY THREE TIMES A DAY CONCEN TRATED INSULIN* * - 95 UNITS IN THE MORNING, 80 UNITS AT NOON AND 80 UNITS IN THE EVENING BEFORE FOOD DO NOT ADJUST DOSE WITHOUT THE CONSENT OF YOUR DIABETES SPECIALI ST. SUBCUT ANEOUS DISCONT INUED 03/05/2024 [id number] VELASCO,AL ICE 2022 16 [facility] METFORMIN HCL 500MG TAB TAKE ONE TABLET BY MOUTH TWICE DAILY FOR DIABETES ORAL ACTIVE 03/06/2025 [id number] VELASCO,AL ICE 2023 180 [facility] METFORMIN HCL 500MG TAB TAKE ONE TABLET BY MOUTH TWICE DAILY FOR DIABETES ORAL DISCONT INUED 12/05/2024 [id number] 4 VELASCO,AL ICE 2023 180 [facility] METFORMIN HCL 500MG TAB TAKE ONE TABLET BY MOUTH TWICE DAILY FOR DIABETES ORAL DISCONT INUED 02/07/2024 [id number] 3 VELASCO,NISSA ICE 2022 180 [facility] metoprolol succ (U/D) 25 MG ORAL TB24 TAKE ONE TABLET BY MOUTH ONCE DAILY FOR HIGH BLOOD PRESSURE Active 08/05/2024 [id number] STACEY HORTON 2023 90 [facility] metoprolol succ (U/D) 25 MG ORAL TB24 TAKE ONE-HALF TABLET BY MOUTH ONCE DAILY FOR BLOOD PRESSURE /HEART Discont inued 04/30/2024 [id number] DEISY VELASCO 2023 45 [facility] METOPROLOL SUCCINATE 25MG TAB,SA TAKE ONE TABLET BY MOUTH ONCE DAILY FOR HIGH BLOOD PRESSURE ORAL ACTIVE 12/05/2024 [id number] STACEY HORTON 2023 90 [facility] METOPROLOL SUCCINATE 25MG TAB,SA TAKE ONE TABLET BY MOUTH ONCE DAILY FOR HIGH BLOOD PRESSURE ORAL DISCONT INUED 08/05/2024 [id number] STACEY HORTON 2023 90 [facility] METOPROLOL SUCCINATE 25MG TAB,SA TAKE ONE-HALF TABLET BY MOUTH ONCE DAILY FOR BLOOD PRESSURE /HEART ORAL DISCONT INUED BY PROVIDE R 04/30/2024 [id number] NISSA VELASCO ICE 2022 45 [facility] OXYCODONE-A CETAMINOPHE N (oxycodone HCl/acetami nophen), 5 MG-325MG, TABLET, ORAL, [employer], 100 ea. BOTTLE Active [id number] 4 2023 16 Pharmac y Data Transac tion Service Facilit y SEMAGLUTIDE 0.25MG/0.37 5ML INJ,SOLN,PE N,3ML INJECT 0.5MG SUBCUTAN EOUSLY ONCE A WEEK FOR TYPE 2 DIABETES MELLITUS SUBCUT ANEOUS DISCONT INUED (EDIT) 12/22/2023 [id number] VELASCO,AL ICE 2023 2 [facility] SEMAGLUTIDE 0.25MG/0.37 5ML INJ,SOLN,PE N,3ML INJECT 0.25MG SUBCUTAN EOUSLY ONCE A WEEK SUBCUT ANEOUS DISCONT INUED (EDIT) 09/06/2024 [id number] 4 VELASCO,AL ICE 2023 1 [facility] SEMAGLUTIDE 1MG/0.75ML INJ,SOLN,PE N,3ML INJECT 1MG SUBCUTAN EOUSLY ONCE A WEEK SUBCUT ANEOUS DISCONT INUED (EDIT) 12/05/2024 [id number] VELASCO,AL ICE 2023 1 [facility] SEMAGLUTIDE 2MG/0.75ML INJ,SOLN,PE N,3ML INJECT 2MG SUBCUTAN EOUSLY ONCE A WEEK SUBCUT ANEOUS ACTIVE 03/06/2025 [id number] 4 VELASCO,AL ICE 2023 1 [facility] spironolact one (U/D) 25 MG ORAL TAB TAKE ONE TABLET BY MOUTH ONCE DAILY 06/26/2023 [id number] STACEY HORTON 2023 90 [facility] SPIRONOLACT ONE 25MG TAB TAKE ONE TABLET BY MOUTH ONCE DAILY ORAL ACTIVE 12/05/2024 [id number] STACEY HORTON 2023 90 [facility] SPIRONOLACT ONE 25MG TAB TAKE ONE TABLET BY MOUTH ONCE DAILY ORAL 06/26/2023 [id number] STACEY HORTON 2022 90 [facility] VALSARTAN 320MG TAB TAKE ONE TABLET BY MOUTH ONCE DAILY FOR HIGH BLOOD PRESSURE ORAL ACTIVE 02/07/2025 [id number] STACEY HORTON 2023 90 [facility] Allergies, Adverse Reactions, Alerts Combined list of allergies from Department of Defense and Veterans Affairs facilities. It does not include entries that were removed or entered in error. Substance Category Reaction Severity Reaction type Status Date Reported Comments Source DEMEROL 100MG/ML CARTRIDGE Propensity to adverse reactions to drug (finding) HIVES active 5 [facility] Meperidine Drug allergy (disorder) Urticaria active 5 [facility] Immunizations Combined list of available immunizations from the Department of Defense and Veterans Affairs facilities. Immunization Series Date Given Administered By Site Reaction Lot Number CVX Code Drug Planograph Operator Status Comments Source COVID-19 (MODERNA), MRNA, LNP-S, PF, 50 MCG/0.5 ML (AGES 12+ YEARS) 2023 ZANVETTOR,ANNABEL BRENDAN RIGHT DELTO ID [id number] 312 complet ed [facility] INFLUENZA, HIGH-DOSE, TRIVALENT, PF 2023 ZANVETTOR,ANNABEL BRENDAN LEFT DELTO ID [id number] 135 complet ed [facility] COVID-19 (MODERNA), MRNA, LNP-S, PF, 50 MCG/0.5 ML (AGES 12+ YEARS) 1 2022 RENE BLANDON E RIGHT DELTO ID [id number] 312 complet ed [facility] INFLUENZA, HIGH-DOSE, QUADRIVALENT 2022 WILLI PHILLIP RIGHT DELTO ID [id number] 197 complet ed [facility] INFLUENZA, INJECTABLE, QUADRIVALENT, PRESERVATIVE FREE 2022 ZANVETTOR,ANNABEL BRENDAN RIGHT DELTO ID [id number] 150 complet ed [facility] PNEUMOCOCCAL CONJUGATE PCV20, POLYSACCHARID E [id number] CONJUGATE, ADJUVANT, PF 2022 ZANVETTOR,ANNABEL BRENDAN LEFT DELTO ID [id number] 216 complet ed [facility] COVID-19, mRNA, LNP-S, PF, 30 mcg/0.3 mL dose 2020 [employer] [place] (PFR) Not Given COVID-19, mRNA, LNP-S, PF, 30 mcg/0.3 mL dose [facility] COVID-19 (PFIZER), MRNA, LNP-S, PF, 30 MCG/0.3 ML DOSE 3 [address] [facility] COVID-19 (PFIZER), MRNA, LNP-S, PF, 30 MCG/0.3 ML DOSE 2 2020 208 complet ed [facility] COVID-19 (PFIZER), MRNA, LNP-S, PF, 30 MCG/0.3 ML DOSE 2 2020 208 complet ed PFR; [id number]; 1 [facility] COVID-19 (PFIZER), MRNA, LNP-S, PF, 30 MCG/0.3 ML DOSE 1 2020 208 complet ed [facility] COVID-19 (PFIZER), MRNA, LNP-S, PF, 30 MCG/0.3 ML DOSE 1 2020 208 complet ed PFR; [id number]; 1 [facility] INFLUENZA, INJECTABLE, QUADRIVALENT, PRESERVATIVE FREE 2020 150 complet ed [facility] INFLUENZA, TRIVALENT, ADJUVANTED 2018 168 complet ed [facility] ZOSTER RECOMBINANT 2 2018 187 complet ed [facility] INFLUENZA, TRIVALENT, ADJUVANTED 2017 168 complet ed Site: Right Deltoid [facility] ZOSTER RECOMBINANT 1 2017 187 complet ed [facility] TDAP 2016 115 complet ed Site: Right Deltoid [facility] INFLUENZA, SEASONAL, INJECTABLE 2016 141 complet ed Site: Right Deltoid [facility] FLU,3 YRS (HISTORICAL) 2015 88 complet ed Site: Left Deltoid [facility] PNEUMOCOCCAL CONJUGATE PCV 13 2014 133 complet ed [facility] FLU,3 YRS (HISTORICAL) 2014 88 complet ed Site: Left Deltoid [facility] FLU,3 YRS (HISTORICAL) 2013 88 complet ed Site: Left Deltoid [facility] ZOSTER (HISTORICAL) 2013 121 complet ed [facility] FLU,3 YRS (HISTORICAL) 2012 88 complet ed Site: Left Deltoid [facility] PNEUMOCOCCAL, UNSPECIFIED FORMULATION 2012 109 complet ed Site: Left Deltoid [facility] FLU,3 YRS (HISTORICAL) 2012 88 complet ed Site: Left Deltoid [facility] FLU,3 YRS (HISTORICAL) 2011 88 complet ed Site: Left Deltoid [facility] FLU,3 YRS (HISTORICAL) 2010 88 complet ed Site: Right Deltoid [facility] FLU,3 YRS (HISTORICAL) 2008 88 complet ed Site: Left Deltoid [facility] FLU,3 YRS (HISTORICAL) 2007 88 complet ed [facility] FLU,3 YRS (HISTORICAL) 2006 88 complet ed Site: Left Deltoid [facility] TDAP 2006 115 complet ed [facility] FLU,3 YRS (HISTORICAL) 2005 IVETTE SAMANO 88 complet ed [facility] PNEUMOCOCCAL, UNSPECIFIED FORMULATION 2005 WOLF TINAJERO 109 complet ed [facility] Results Combined list of recent chemistry, hematology and other laboratory results from Department of Defense and Veterans Affairs, ranging from 15 months to all on record, depending upon the facility. Order Name Results Value Reference Range Date Interpretation Specimen Comments Source BASIC METABOLIC PANEL (non-fast ing) UREA NITROGEN [MASS/VOLU ME] IN SERUM OR PLASMA 15 mg/dL 7 - 25 02/20 Specimen Type: SERUM No comment entered. Ordering Provider: MANDO VELASCO Report Released Date/Time: Dec 05, 2023 10:51 AM Reporting Lab[facility] [address] [address] Performing Lab: [facility] [address] [address] [facility] BASIC METABOLIC PANEL (non-fast ing) GLUCOSE [MASS/VOLU ME] IN SERUM OR PLASMA 183 mg/dL 65 - 100 02/20 H Specimen Type: SERUM No comment entered. Ordering Provider: MANDO VELASCO Report Released Date/Time: Dec 05, 2023 10:51 AM Reporting Lab: [facility] [address] Performing Lab: [facility] [address] [address] [facility] BASIC METABOLIC PANEL (non-fast ing) SODIUM [MOLES/VOL UME] IN SERUM OR PLASMA 137 mmol/L 135 - 145 02/20 Specimen Type: SERUM No comment entered. Ordering Provider: MANDO VLEASCO Report Released Date/Time: Dec 05, 2023 10:51 AM Reporting Lab: [facility] [address] [id number] Performing Lab: [facility]ITALRCENTRAL [facility]OSPITALUSE[address] [id number] [facility] BASIC METABOLIC PANEL (non-fast ing) POTASSIUM [MOLES/VOL UME] IN SERUM OR PLASMA 4.3 mmol/L 3.5 - 5.0 02/20 Specimen Type: SERUM No comment entered. Ordering Provider: MANDO VELASCO Report Released Date/Time: Dec 05, 2023 10:51 AM Reporting Lab: [facility]OSPITALRL WSTRN [place] [facility] [address] [id number] Performing Lab: [facility]ITALRL WSTRN [facility]PITALUSETS [facility] [address] [address] [facility]ITALRL [facility]N [facility]ITALUSE [facility] BASIC METABOLIC PANEL (non-fast ing) CHLORIDE [MOLES/VOL UME] IN SERUM OR PLASMA 104 mmol/L 100 - 110 02/20 Specimen Type: SERUM No comment entered. Ordering Provider: MANDO VELASCO Report Released Date/Time: Dec 05, 2023 10:51 AM Reporting Lab: [facility]ITALRFLOWERS HOSPITALTRN [facility]ITALUSE[facility] [address] [address] Performing Lab: [facility]ITALRFLOWERS HOSPITALTRN [facility]ITALUSEH[facility] [address] [address] FOR[facility]LY [facility]ITALRCENTRAL [facility] BASIC METABOLIC PANEL (non-fast ing) CARBON DIOXIDE, TOTAL [MOLES/VOL UME] IN SERUM OR PLASMA 22 meq/L 20 - 30 02/20 Specimen Type: SERUM No comment entered. Ordering Provider: MANDO VELASCO Report Released Date/Time: Dec 05, 2023 10:51 AM Reporting Lab: [facility]PITALRFLOWERS HOSPITALTRN [facility]ITALUSEHOSP[facility] [address] [address] Performing Lab: FOR[facility]LY [facility]OSPITALRL TRN [facility]ITALUSEH[facility] [address] [address] FOR[facility]LY [facility]PITALRCENTRAL [facility] BASIC METABOLIC PANEL (non-fast ing) CREATININE [MASS/VOLU ME] IN SERUM OR PLASMA 0.80 mg/dL 0.50 - 1.40 02/20 Specimen Type: SERUM No comment entered. Ordering Provider: MANDO VELASCO Report Released Date/Time: Dec 05, 2023 10:51 AM Reporting Lab: FOR[facility] HOSPITALRL TRN [facility] HOSPITALUSETS [facility] [address] [address] Performing Lab: FORMERLY [facility]OSPITALRL WSTRN [facility]ITALUSE[address] [address] FORMERLY [facility]OSPITALRFLOWERS HOSPITALTRN [facility] BASIC METABOLIC PANEL (non-fast ing) GLOMERULAR FILTRATION RATE/1.73 SQ M.PREDICTE D [VOLUME RATE/AREA] IN SERUM, PLASMA OR BLOOD BY CREATININE -BASED FORMULA (CKD-EPI 2020) >90mL/m in 60 02/20 Specimen Type: SERUM No comment entered. Ordering Provider: MANDO VELASCO Report Released Date/Time: Dec 05, 2023 10:51 AM Reporting Lab: [facility] [address] [address] Performing Lab: [facility] [address] [address] [facility] HEMOGLOBI N A1C PANEL HEMOGLOBIN A1C/HEMOGL OBIN.TOTAL IN BLOOD BY HPLC 6.0 4.0 - 5.6 02/20 H Specimen Type: BLOOD Comment: Values obtained from A1C measurement s can vary. For atypical A1C assays, a reported value of 7.0 could actually be between 6.72 and 7.28 if measured by a reference method. A reported value of 9.0 could actually be between 8.73 and 9.27. Ref: [email or web address]/[place] Pdata.asp Ordering Provider: MANDO VELASCO Report Released Date/Time: Dec 05, 2023 10:51 AM Reporting Lab: [address] [address] Performing Lab: [facility] [address] [address] [facility] LIPID PANEL FASTING CHOLESTERO L [MASS/VOLU ME] IN SERUM OR PLASMA 102 mg/dL 02/20 Specimen Type: SERUM No comment entered. Ordering Provider: MANDO VELASCO Report Released Date/Time: Dec 05, 2023 10:51 AM Reporting Lab: [facility] [address] [address] Performing Lab: [address] [address] [facility] LIPID PANEL FASTING TRIGLYCERI DE [MASS/VOLU ME] IN SERUM OR PLASMA 124 mg/dL 0 - 150 02/20 Specimen Type: SERUM No comment entered. Ordering Provider: MANDO VELASCO Report Released Date/Time: Dec 05, 2023 10:51 AM Reporting Lab: [facility] [place] [facility] [address] [address] Performing Lab: [facility] [place] [facility] [address] [address] [facility] [place] [facility] LIPID PANEL FASTING CHOLESTERO L IN LDL [MASS/VOLU ME] IN SERUM OR PLASMA BY CALCULATIO N 44 mg/dL 0 - 129 02/20 Specimen Type: SERUM No comment entered. Ordering Provider: MANDO VELASCO Report Released Date/Time: Dec 05, 2023 10:51 AM Reporting Lab: [facility] [place] [facility] [address] [address] Performing Lab: [facility] [place] [facility] [address] [address] [place] [facility] LIPID PANEL FASTING CHOLESTERO L.TOTAL/CH OLESTEROL IN HDL [MASS RATIO] IN SERUM OR PLASMA 3.1 02/20 Specimen Type: SERUM No comment entered. Ordering Provider: MANDO VELASCO Report Released Date/Time: Dec 05, 2023 10:51 AM Reporting Lab: [facility] [place] [facility] [address] [address] Performing Lab: [facility] [place] [facility] [address] [address] [facility] [place] [facility] LIPID PANEL FASTING CHOLESTERO L IN HDL [MASS/VOLU ME] IN SERUM OR PLASMA 33 mg/dL 40 - 60 02/20 L Specimen Type: SERUM No comment entered. Ordering Provider: MANDO VELASCO Report Released Date/Time: Dec 05, 2023 10:51 AM Reporting Lab: [facility] [place] [facility] [address] [address] Performing Lab: [facility] [place] [facility] [address] [address] [facility] [place] [facility] MICROALBU MIN CREATININ E RATIO PANEL MICROALBUM IN/CREATIN INE [MASS RATIO] IN URINE 37.8 mg/g 0 - 29.9 02/20 H Specimen Type: URINE No comment entered. Ordering Provider: MANDO VELASCO Report Released Date/Time: Dec 05, 2023 10:51 AM Reporting Lab: [facility] [place] [facility] [address] [address] Performing Lab: [place] [address] [address] [facility] MICROALBU MIN CREATININ E RATIO PANEL MICROALBUM IN [MASS/VOLU ME] IN URINE 5.0 mg/dL 02/20 Specimen Type: URINE No comment entered. Ordering Provider: MANDO VELASCO Report Released Date/Time: Dec 05, 2023 10:51 AM Reporting Lab: [place] [facility] [facility] [place] [address] [address] Performing Lab: [place] [facility] [address] [address] FORMERLY [facility]ITALRL WSTRN [place] MICROALBU MIN CREATININ E RATIO PANEL CREATININE [MASS/VOLU ME] IN URINE 132.11 mg/dL 02/20 Specimen Type: URINE No comment entered. Ordering Provider: MANDO VELASCO Report Released Date/Time: Dec 05, 2023 10:51 AM Reporting Lab: [place] [facility] [place] [address] [address] Performing Lab: [place] [address] [address] FORMERLY [facility]OSPITALRL WSTRN [place] [facility] GLUCOSE, Fingersti ck GLUCOSE [MASS/VOLU ME] IN BLOOD BY AUTOMATED TEST STRIP 143 mg/dL 65 - 100 12/24 H Specimen Type: BLOOD Comment: For GLU FinTest performed by: Crys Slade For GLU Fin Meter #: [id number] Ordering Provider: ROSA SLADE Report Released Date/Time: Dec 25, 2023 03:45 PM Reporting Lab: [address] [address] Performing Lab: [address] [address] [facility] BASIC METABOLIC PANEL (non-fast ing) UREA NITROGEN [MASS/VOLU ME] IN SERUM OR PLASMA 19 mg/dL 7 - 25 12/04 Specimen Type: SERUM No comment entered. Ordering Provider: MANDO VELASCO Report Released Date/Time: Sep 04, 2023 12:58 PM Reporting Lab: [facility] [address] [address] Performing Lab: [facility] [address] [address] [facility] BASIC METABOLIC PANEL (non-fast ing) GLUCOSE [MASS/VOLU ME] IN SERUM OR PLASMA 147 mg/dL 65 - 100 12/04 H Specimen Type: SERUM No comment entered. Ordering Provider: MANDO VELASCO Report Released Date/Time: Sep 04, 2023 12:58 PM Reporting Lab: [facility] [address] [address] Performing Lab: [address] [address] [facility] BASIC METABOLIC PANEL (non-fast ing) SODIUM [MOLES/VOL UME] IN SERUM OR PLASMA 136 mmol/L 135 - 145 12/04 Specimen Type: SERUM No comment entered. Ordering Provider: MANDO VELASCO Report Released Date/Time: Sep 04, 2023 12:58 PM Reporting Lab: [facility]ERN [facility]PITALUSE[address] [address] Performing Lab: [facility] [address] [address] [facility] BASIC METABOLIC PANEL (non-fast ing) POTASSIUM [MOLES/VOL UME] IN SERUM OR PLASMA 4.6 mmol/L 3.5 - 5.0 12/04 Specimen Type: SERUM No comment entered. Ordering Provider: MANDO VELASCO Report Released Date/Time: Sep 04, 2023 12:58 PM Reporting Lab: [facility]PITALUSE[address] [address] Performing Lab: [facility] [address] [address] [facility] BASIC METABOLIC PANEL (non-fast ing) CHLORIDE [MOLES/VOL UME] IN SERUM OR PLASMA 104 mmol/L 100 - 110 12/04 Specimen Type: SERUM No comment entered. Ordering Provider: MANDO VELASCO Report Released Date/Time: Sep 04, 2023 12:58 PM Reporting Lab: [facility] [address] [address] Performing Lab: [facility] [address] [address] [facility] BASIC METABOLIC PANEL (non-fast ing) CARBON DIOXIDE, TOTAL [MOLES/VOL UME] IN SERUM OR PLASMA 23 meq/L 20 - 30 12/04 Specimen Type: SERUM No comment entered. Ordering Provider: MANDO VELASCO Report Released Date/Time: Sep 04, 2023 12:58 PM Reporting Lab: [address] [address] Performing Lab: [address] [address] [facility] BASIC METABOLIC PANEL (non-fast ing) CREATININE [MASS/VOLU ME] IN SERUM OR PLASMA 0.92 mg/dL 0.50 - 1.40 12/04 Specimen Type: SERUM No comment entered. Ordering Provider: MANDO VELASCO Report Released Date/Time: Sep 04, 2023 12:58 PM Reporting Lab: [facility] [address] [address] Performing Lab: [address] [address] [facility] BASIC METABOLIC PANEL (non-fast ing) GLOMERULAR FILTRATION RATE/1.73 SQ M.PREDICTE D [VOLUME RATE/AREA] IN SERUM, PLASMA OR BLOOD BY CREATININE -BASED FORMULA (CKD-EPI 2020) 86 mL/min 60 12/04 Specimen Type: SERUM No comment entered. Ordering Provider: MANDO VELASCO Report Released Date/Time: Sep 04, 2023 12:58 PM Reporting Lab: FOR[facility] HOSPITALRL TRN [facility]ENTERCHUSETS [facility] [address] [address] Performing Lab: [place] [facility] [facility]ENTERCHUSETS [facility] [address] [address] FORMERLY [facility]ITALRCENTRAL [facility]EN [facility]OSPITALUSE [facility] HEMOGLOBI N A1C PANEL HEMOGLOBIN A1C/HEMOGL OBIN.TOTAL IN BLOOD BY HPLC 6.0 4.0 - 5.6 12/04 H Specimen Type: BLOOD Comment: Values obtained from A1C measurement s can vary. For atypical A1C assays, a reported value of 7.0 could actually be between 6.72 and 7.28 if measured by a reference method. A reported value of 9.0 could actually be between 8.73 and 9.27. Ref: http://[email or web address]. [email or web address]/[place] Pdata.asp Ordering Provider: MANDO VELASCO Report Released Date/Time: Sep 04, 2023 12:58 PM Reporting Lab: FORMERLY [facility] HOSPITALRL WSTRN [facility]OSPITALUSETS [address] [address] Performing Lab: FORMERLY [facility] HOSPITALRL TRN [facility]ITALUSE[address] [address] [facility] HOSPITALUSE [facility] HEMOGLOBI N A1C PANEL HEMOGLOBIN A1C/HEMOGL OBIN.TOTAL IN BLOOD BY HPLC 7.3 4.0 - 5.6 08/15 H Specimen Type: BLOOD Comment: Values obtained from A1C measurement s can vary. For atypical A1C assays, a reported value of 7.0 could actually be between 6.72 and 7.28 if measured by a reference method. A reported value of 9.0 could actually be between 8.73 and 9.27. Ref: [email or web address]://www. [email or web address]/[place] Pdata.asp Ordering Provider: MANDO VELASCO Report Released Date/Time: May 29, 2023 12:04 PM Reporting Lab: FORMERLY [facility] HOSPITALRL WSTRN [address]SUSE[address] [address] Performing Lab: FORMERLY [facility] HOSPITALRFLOWERS HOSPITALTRN [facility]PITALUSE[address] [address] FORMERLY [facility] HOSPITALRL WSTRN [place] LIPID PANEL FASTING CHOLESTERO L [MASS/VOLU ME] IN SERUM OR PLASMA 122 mg/dL 08/15 Specimen Type: SERUM No comment entered. Ordering Provider: MANDO VELASCO Report Released Date/Time: May 29, 2023 12:04 PM Reporting Lab: [facility]MERLY [facility] HOSPITALRL WSTRN [facility]OSPITALUSEHOSPITAL FOR SPECIAL SURGERY [address] [address] Performing Lab: FORMERLY [facility] HOSPITALR WSTRN [facility]OSPITALUSEHOSPITAL [facility] SPECIAL SUR[facility]ERY [address] [address] FORMERLY [facility] HOSPITALRL WSTRN [facility]OSPITALUSE [facility] LIPID PANEL FASTING TRIGLYCERI DE [MASS/VOLU ME] IN SERUM OR PLASMA 399 mg/dL 0 - 150 08/15 H Specimen Type: SERUM No comment entered. Ordering Provider: MANDO VELASCO Report Released Date/Time: May 29, 2023 12:04 PM Reporting Lab: FORMERLY [facility] HOSPITALRFLOWERS HOSPITALTRN [address] [address] Performing Lab: FORMERLY [facility] HOSPITALRL TRN [facility]ITALUSE[address] [address] FORMERLY [facility]OSPITALRCENTRAL [facility]OSPITALUSE [facility] LIPID PANEL FASTING CHOLESTERO L IN LDL [MASS/VOLU ME] IN SERUM OR PLASMA BY CALCULATIO N Reflex to dLDLmg/ dL 0 - 129 08/15 Specimen Type: SERUM No comment entered. Ordering Provider: MANDO VELASCO Report Released Date/Time: May 29, 2023 12:04 PM Reporting Lab: [facility] HOSPITALRL TRN [address]SE[address] [address] Performing Lab: [place] [facility] [facility]OSPITALUSETS [address] [address] FOR[facility]LY [facility] HOSPITALRL WSTRN [place] [facility] LIPID PANEL FASTING CHOLESTERO L.TOTAL/CH OLESTEROL IN HDL [MASS RATIO] IN SERUM OR PLASMA 3.9 08/15 Specimen Type: SERUM No comment entered. Ordering Provider: MANDO VELASCO Report Released Date/Time: May 29, 2023 12:04 PM Reporting Lab: FORMERLY [facility]OSPITALRFLOWERS HOSPITALTRN [facility]OSPITALUSE[address] [address] Performing Lab: FORMERLY [facility] HOSPITALRL WSTRN [place] [place] [address] [place] [facility] LIPID PANEL FASTING CHOLESTERO L IN HDL [MASS/VOLU ME] IN SERUM OR PLASMA 31 mg/dL 40 - 60 08/15 L Specimen Type: SERUM No comment entered. Ordering Provider: MANDO VELASCO Report Released Date/Time: May 29, 2023 12:04 PM Reporting Lab: [facility] [place] [facility] [address] [address] Performing Lab: [facility] [place] [facility] [address] [address] [place] [facility] LIPID PANEL FASTING CHOLESTERO L IN LDL [MASS/VOLU ME] IN SERUM OR PLASMA BY DIRECT ASSAY 45 mg/dL 08/15 Specimen Type: SERUM No comment entered. Ordering Provider: MANDO VELASCO Report Released Date/Time: May 29, 2023 12:04 PM Reporting Lab: [facility] [place] [address] [address] Performing Lab: [place] [facility] [address] [address] FORMERLY [facility]OSPITALRL WSTRN [facility] MICROALBU MIN CREATININ E RATIO PANEL MICROALBUM IN/CREATIN INE [MASS RATIO] IN URINE 111.2 mg/g 0 - 29.9 08/15 H Specimen Type: URINE No comment entered. Ordering Provider: MANDO VELASCO Report Released Date/Time: May 29, 2023 12:04 PM Reporting Lab: [facility] [place] [facility] [address] [address] Performing Lab: [facility] [place] [facility] [address] [address] [facility] MICROALBU MIN CREATININ E RATIO PANEL MICROALBUM IN [MASS/VOLU ME] IN URINE 9.3 mg/dL 08/15 Specimen Type: URINE No comment entered. Ordering Provider: MANDO VELASCO Report Released Date/Time: May 29, 2023 12:04 PM Reporting Lab: [facility] [place] [facility] [address] [address] Performing Lab: [facility] [place] [address] [address] [facility] MICROALBU MIN CREATININ E RATIO PANEL CREATININE [MASS/VOLU ME] IN URINE 83.60 mg/dL 08/15 Specimen Type: URINE No comment entered. Ordering Provider: MANDO VELASCO Report Released Date/Time: May 29, 2023 12:04 PM Reporting Lab: [facility] [place] [facility] [address] [address] Performing Lab: [facility] [place] [address] [address] [facility] Vital Signs Combined list of inpatient and outpatient Vital Signs from Department of Defense and Veterans Affairs, ranging from 12 months to all on record, depending upon the facility. Vital Sign Value Date Comments Source SYSTOLIC BLOOD PRESSURE 152 04/29/20 24 09:32:01 [facility] DIASTOLIC BLOOD PRESSURE 70 024 09:32:01 [facility] PULSE OXIMETRY 98 04/29/2024 09:32:01 [facility] WEIGHT 234 04/29/2024 09:32:01 [facility] BMI 33kg/m2 04/29/2024 09:32:01 [facility] PAIN 6 04/29/2024 09:32:01 [facility] HEIGHT 71 04/29/2024 09:32:01 [facility] TEMPERATURE 97.1 04/29/2024 09:32:01 [facility] PULSE 69 04/29/2024 09:32:01 [facility] RESPIRATION 20 04/29/2024 09:32:01 [facility] WEIGHT 228.2 04/23/2024 12:01:12 [facility] BMI 32kg/m2 04/23/2024 12:01:12 [facility] SYSTOLIC BLOOD PRESSURE 138 04/06/20 24 09:39:59 [facility] DIASTOLIC BLOOD PRESSURE 63 024 09:39:59 [facility] PULSE OXIMETRY 98 04/06/2024 09:39:59 [facility] WEIGHT 230 04/06/2024 09:39:59 [facility] BMI 32kg/m2 04/06/2024 09:39:59 [facility] PAIN 7 04/06/2024 09:39:59 [facility] HEIGHT 71 04/06/2024 09:39:59 [facility] TEMPERATURE 97.5 04/06/2024 09:39:59 [facility] PULSE 76 04/06/2024 09:39:59 [facility] RESPIRATION 20 04/06/2024 09:39:59 [facility] SYSTOLIC BLOOD PRESSURE 148 03/05/20 24 13:26:22 [facility] DIASTOLIC BLOOD PRESSURE 65 024 13:26:22 [facility] PULSE OXIMETRY 98 03/05/2024 13:26:22 [facility] WEIGHT 229 03/05/2024 13:26:22 [facility] BMI 32kg/m2 03/05/2024 13:26:22 [facility] PAIN 4 03/05/2024 13:26:22 [facility] TEMPERATURE 97.9 03/05/2024 13:26:22 [facility] PULSE 71 03/05/2024 13[facility]26:22 [facility] RESPIRATION 16 03/05/2024 13:26:22 [facility] WEIGHT 228 12/26/2023 10:52:06 [facility] BMI 32kg/m2 12/26/2023 10:52:06 [facility] Encounters Combined list of: 1) Encounters from Department of Veterans Affairs facilities going back up to thelast 18 months. 2) Encounters from the Department of [facility] facilities going back up to 280 months. Location Location Details Encounter Type Encounter Number Reason For Visit Attending Provider ADM Date DC Date Status Disposition Source [facility] En[facility] [id number] 11[facility]26 [facility] [id number] 11/26 [facility] OFFICE O/P EST LOW 20-29 MIN [id number] Diagnos is: ICD-10- CM E11.9 Type 2 diabete s mellitu s without complic ations< br/> Emory HORTON 11/26 [facility] En[facility] [id number] 11/26 [facility] Encounter [id number] 11/26 [facility] THERAPEUTI C EXERCISES [id number] Diagnos is: ICD-10- CM M25.569 Pain in unspeci fied knee
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
AUTUMN WALTERS LIE E 12/03 [facility] [place] [facility] [place] LD CONT GLUC MNTR PT PROV EQP [id number] Diagnos is: ICD-10- CM E11.9 Type 2 diabete s mellitu s without complic ations< br/> TERE SLADE NNIE P 12/05 [place] [facility] Outpatient Encounter [id number] 12/06 [facility] Outpatient Encounter [id number] Diagnos is: ICD-10- CM I10 Essenti al (primar y) hyperte nsion<b r/> COSTA PURVIS 12/14 [facility] Outpatient Encounter [id number] 12/14 [facility] THERAPEUTI C EXERCISES [id number] Diagnos is: ICD-10- CM 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
AUTUMN WALTERS E 12/18 [facility] THERAPEUTI C EXERCISES [id number] Diagnos is: ICD-10- CM M25.569 Pain in unspeci fied knee
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
MACHON,AUTUMN LIE E 12/27 [facility] THERAPEUTI C EXERCISES [id number] Diagnos is: ICD-10- CM M25.569 Pain in unspeci fied knee
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
MACHON,AUTUMN LIE E 01/08 [facility] PRO PHONE CALL 5-10 MIN [id number] Diagnos is: ICD-10- CM E11.9 Type 2 diabete s mellitu s without complic ations< br/> COSTA PURVIS 01/08 [facility] Outpatient Encounter [id number] 08/25 /2023 [facility] Out[facility] Encounter [id number] Diagnos is: ICD-10- CM I10 Essenti al (primar y) hyperte nsion<b r/> NNAMDI VELASCO 01/11 [facility] En[facility] [id number] 01/14 [facility] THERAPEUTI C EXERCISES [id number] Diagnos is: ICD-10- CM 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
MACHON,AUTUMN LIE E 01/17 [facility] Out[facility] Encounter [id number] Diagnos is: ICD-10- CM E11.9 Type 2 diabete s mellitu s without complic ations< br/> COSTA PURVIS 01/17 [facility] En[facility] [id number] 01/22 [facility] [facility] Outpatient Encounter [id number] 01/22 [facility] Encounter [id number] 01/25 [facility] Outpatient Encounter [id number] NNAMDI VELASCO 01/25 [facility] Outpatient Encounter [id number] 01/31 [facility] Outpatient Encounter [id number] 02/05 [facility] OFFICE O/P EST HI 40-54 MIN [id number] Diagnos is: ICD-10- CM E11.9 Type 2 diabete s mellitu s without complic ations< br/> NNAMDI VELASCO CE 02/06 [facility] CONT GLUC MNTR PHYS/QHP EQP [id number] Diagnos is: ICD-10- CM E11.9 Type 2 diabete s mellitu s without complic ations< br/> KIMI PHILLIP E M 02/06 [facility] IMMUNIZATI ON ADMIN [id number] HONGS,KIMI E M 02/06 [facility] QNHP OL DIG ASSMT&MGMT 5-10 [id number] Diagnos is: ICD-10- CM E78.2 Mixed hyperli pidemia
GDULASRINIVAS A 02/08 [facility] CONT GLUC MNTR ANALYSIS I&R [id number] [id number] Diagnos is: ICD-10- CM E11.9 Type 2 diabete s mellitu s without complic ations< br/> NNAMDI VELASCO CE 02/08 [facility] Outpatient Encounter [id number] NNAMDI VELASCO CE 02/09 [facility] Outpatient Encounter [id number] 02/12 [facility] THERAPEUTI C EXERCISES [id number] Diagnos is: ICD-10- CM 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
MACHON,AUTUMN LIE E 02/13 [facility] Out[facility] Encounter [id number] 02/15 [facility] Outpatient Encounter [id number] Diagnos is: ICD-10- CM E11.9 Type 2 diabete s mellitu s without complic ations< br/> TOÑO LORD 02/15 [facility] HC PRO PHONE CALL 21-30 MIN [id number] Diagnos is: ICD-10- CM E11.9 Type 2 diabete s mellitu s without complic ations< br/> TOÑO LORD 02/20 [facility] Out[facility] Encounter [id number] 03/05 [facility] Out[facility] Encounter [id number] 03/08 [facility] HC PRO PHONE CALL 11-20 MIN [id number] [id number] Diagnos is: ICD-10- CM I10 Essenti al (primar y) hyperte nsion<b r/> TOÑO LORD 03/11 [facility] Outpatient Encounter [id number] Diagnos is: ICD-10- CM E11.9 Type 2 diabete s mellitu s without complic ations< br/> KRISTIE LORDNDA 03/18 [facility] [place] DIAB MANAGE TRN PER INDIV [id number] Diagnos is: ICD-10- CM E11.9 Type 2 diabete s mellitu s without complic ations< br/> TERE SLADE NNIE P 04/03 [place] [facility] OFFICE O/P EST LOW 20-29 MIN [id number] Diagnos is: ICD-10- CM M25.569 Pain in unspeci fied knee
[facility] HORTON 04/05 [facility] Outpatient Encounter [id number] 04/05 [facility] Outpatient Encounter [id number] Diagnos is: ICD-10- CM E11.9 Type 2 diabete s mellitu s without complic ations< br/> TOÑO LORD 04/12 [facility] Outpatient Encounter [id number] 04/17 [facility] Outpatient Encounter [id number] 04/22 [facility] Outpatient Encounter [id number] 04/23 [facility] Outpatient Encounter [id number] 04/24 [facility] HC PRO PHONE CALL 11-20 MIN [id number] Diagnos is: ICD-10- CM I10 Essenti al (primar y) hyperte nsion<b r/> RECCHIA,AN GELINA R 04/26 [facility] Outpatient Encounter [id number] 04/26 [facility] Outpatient Encounter [id number] 04/26 [facility] Outpatient Encounter [id number] 04/27 [facility] Out[facility] Encounter [id number] 04/29 [facility] Outpatient Encounter [id number] Diagnos is: ICD-10- CM E11.9 Type 2 diabete s mellitu s without complic ations< br/> VELASCO,ALI CE 04/30 [facility] HC PRO PHONE CALL 5-10 MIN [id number] [id number] Diagnos is: ICD-10- CM E11.9 Type 2 diabete s mellitu s without complic ations< br/> TOÑO LORD 04/30 [facility] [place] OFFICE/[place] [id number] [id number] Diagnos is: ICD-10- CM G47.33 Obstruc tive sleep apnea (adult) (pediat kat[place])
JAG JUNG Abdullahi 05/08 [facility] [facility] Outpatient Encounter [id number] 05/10 [facility] Outpatient Encounter [id number] Diagnos is: ICD-10- CM E11.9 Type 2 diabete s mellitu s without complic ations< br/> TOÑO LORD 05/16 [facility] HC PRO PHONE CALL 5-10 MIN [id number] Diagnos is: ICD-10- CM E11.9 Type 2 diabete s mellitu s without complic ations< br/> DANIELLE,DELILAH ECCA R 05/23 [facility] HC PRO PHONE CALL 5-10 MIN [id number] Diagnos is: ICD-10- CM E11.9 Type 2 diabete s mellitu s without complic ations< br/> DANYELLE WALLS A 05/27 [facility] HC PRO PHONE CALL 5-10 MIN [id number] Diagnos is: ICD-10- CM E11.9 Type 2 diabete s mellitu s without complic ations< br/> DANIELLE,DELILAH ECCA R 05/28 [facility] Outpatient Encounter [id number] 05/29 [facility] OFF/OP EST SEPTEMBER X REQ PHY/QHP [id number] [id number] Diagnos is: ICD-10- CM E11.9 Type 2 diabete s mellitu s without complic ations< br/> DENNISSUNNYLuis N 05/29 [facility] OFFICE O/P EST HI 40 MIN [id number] Diagnos is: ICD-10- CM E11.9 Type 2 diabete s mellitu s without complic ations< br/> VELASCO,ALI CE 05/29 [facility] CONT GLUC MNTR ANALYSIS I&R [id number] Diagnos is: ICD-10- CM E11.9 Type 2 diabete s mellitu s without complic ations< br/> KRISTAALI CE 05/29 [facility] Outpatient Encounter [id number] 06/04 [facility] POS AIRWAY PRESSURE FILTER [id number] Diagnos is: ICD-10- CM G47.33 Obstruc tive sleep apnea (adult) (pediat katius[place])
ST JAG BUI E P 06/06 [facility] Outpatient Encounter [id number] Diagnos is: ICD-10- CM E11.9 Type 2 diabete s mellitu s without complic ations< br/> TOÑO LORD 06/14 [facility] HC PRO PHONE CALL 11-20 MIN [id number] Diagnos is: ICD-10- CM I10 Essenti al (primar y) hyperte nsion<b r/> TOÑO LORD 06/21 [facility] Outpatient Encounter [id number] 06/26 [facility] Outpatient Encounter [id number] 06/26 [facility] Outpatient Encounter [id number] 06/28 [facility] [place] POS AIRWAY PRESSURE CPAP [id number] [id number] Diagnos is: ICD-10- CM G47.33 Obstruc tive sleep apnea (adult) (pediat katius[place])
MAHENDRA HUTCHINSON 07/05 [place] [facility] Outpatient Encounter [id number] 07/09 [facility] Outpatient Encounter [id number] Diagnos is: ICD-10- CM E11.9 Type 2 diabete s mellitu s without complic ations< br/> TOÑO LORD [facility] Outpatient Encounter [id number] 07/18 [facility] PRO PHONE CALL 5-10 MIN [id number] Diagnos is: ICD-10- CM I10 Essenti al (primar y) hyperte nsion<b r/> TOÑO LORD 07/23 [facility] POS AIRWAY PRESSURE CPAP [id number] [id number] Diagnos is: ICD-10- CM G47.33 Obstruc tive sleep apnea (adult) (pediat katiuska)
JASPERMAHENDRA Park 07/25 [facility] Out[facility] Encounter [id number] 08/04 [facility] Outpatient Encounter [id number] 08/04 [facility] [place] DIAB MANAGE TRN PER INDIV [id number] Diagnos is: ICD-10- CM E11.9 Type 2 diabete s mellitu s without complic ations< br/> TERE SLADE 08/06 [place] [facility] Outpatient Encounter [id number] Diagnos is: ICD-10- CM E11.9 Type 2 diabete s mellitu s without complic ations< br/> NNAMDI VELASCO 08/06 [facility] HC PRO PHONE CALL 5-10 MIN [id number] Diagnos is: ICD-10- CM I10 Essenti al (primar y) hyperte nsion<b r/> COSTA PURVIS 08/14 [facility] Outpatient Encounter [id number] Diagnos is: ICD-10- CM E11.9 Type 2 diabete s mellitu s without complic ations< br/> COSTA PURVIS 08/14 [facility] Outpatient Encounter [id number] NNAMDI VELASCO 08/16 [facility] Out[facility] Encounter [id number] 08/22 [facility] HC PRO PHONE CALL 5-10 MIN [id number] Diagnos is: ICD-10- CM I10 Essenti al (primar y) hyperte nsion<b r/> BLOSSOM LORDA 09/01 [facility] Outpatient Encounter [id number] Diagnos is: ICD-10- CM E11.9 Type 2 diabete s mellitu s without complic ations< br/> BRITTON,VICT ORIA A 09/03 [facility] OFFICE O/P [place] HI 40 MIN [id number] Diagnos is: ICD-10- CM E11.9 Type 2 diabete s mellitu s without complic ations< br/> NNAMDI VELASCO 09/03 [facility] OFF/OP EST MAY X REQ PHY/QHP [id number] Diagnos is: ICD-10- CM I10 Essenti al (primar y) hyperte nsion<b r/> DESTIN ENEIDA 09/03 [facility] [place] QNHP OL DIG ASSMT&MGMT 5-10 [id number] [id number] Diagnos is: ICD-10- CM E11.9 Type 2 diabete s mellitu s without complic ations< br/> ARASELI,VI IE 09/03 [place] [facility] CONT GLUC MNTR ANALYSIS I&R [id number] Diagnos is: ICD-10- CM E11.9 Type 2 diabete s mellitu s without complic ations< br/> NNAMDI VELASCO 09/03 [facility] Outpatient Encounter [id number] 09/05 [facility] [place] SELF-MGMT EDUC/TRAIN 5-8 PT [id number] [id number] Diagnos is: ICD-10- CM G47.33 Obstruc tive sleep apnea (adult) (pediat katiuska)
JAG JUNG 09/08 [place] [facility] PRO PHONE CALL 5-10 MIN [id number] [id number] Diagnos is: ICD-10- CM E11.9 Type 2 diabete s mellitu s without complic ations< br/> KRISTIE LORDNDA 09/09 [facility] Outpatient Encounter [id number] Diagnos is: ICD-10- CM E11.9 Type 2 diabete s mellitu s without complic ations< br/> KRISTIE LORDNDA 09/12 [facility] PRO PHONE CALL 11-20 MIN [id number] Diagnos is: ICD-10- CM I10 Essenti al (primar y) hyperte nsion<b r/> RECCHIA,AN GELINA R 09/17 [facility] OFF/OP EST SEPTEMBER X REQ PHY/QHP [id number] Diagnos is: ICD-10- CM E11.9 Type 2 diabete s mellitu s without complic ations< br/> KIMI PHILLIP 09/22 [facility] COLLJ & INTERPJ DATA EA 30 D [id number] [id number] Diagnos is: ICD-10- CM G47.33 Obstruc tive sleep apnea (adult) (pediat katiuska)
ST AMANT,JAG E P 09/23 [facility] OFFICE O/P EST LOW 20 MIN [id number] [id number] Diagnos is: ICD-10- CM M25.569 Pain in unspeci fied knee
[facility] OHRTON 10/03 [facility] Outpatient Encounter [id number] 10/08 [facility] HC PRO PHONE CALL 11-20 MIN [id number] [id number] Diagnos is: ICD-10- CM E11.9 Type 2 diabete s mellitu s without complic ations< br/> RISA TOÑO 10/16 [facility] Outpatient Encounter [id number] Diagnos is: ICD-10- CM E11.9 Type 2 diabete s mellitu s without complic ations< br/> RISA TOÑO 10/17 [facility] Out[facility] Encounter [id number] 10/20 [facility] Out[facility] Encounter [id number] 11/04 [facility] Outpatient Encounter [id number] 11/05 [facility] Outpatient Encounter [id number] Diagnos is: ICD-10- CM E11.9 Type 2 diabete s mellitu s without complic ations< br/> TOÑO LORD 11/14 [facility] (6[facility] QNHP OL DIG ASSMT&MGMT 5-10 [id number] [id number] Diagnos is: ICD-10- CM E11.9 Type 2 diabete s mellitu s without complic ations< br/> COLLEEN ANDERSEN 11/14 [facility] (631GE[facility] [place] DIAB MANAGE TRN PER INDIV [id number] [id number] Diagnos is: ICD-10- CM E11.9 Type 2 diabete s mellitu s without complic ations< br/> TERE SLADE NNIE P 11/19 [place] [facility] CONT GLUC MNTR PT PROV EQP [id number] [id number] Diagnos is: ICD-10- CM E11.9 Type 2 diabete s mellitu s without complic ations< br/> KIMI PHILLIP 12/04 [facility] OFFICE O/[place] HI 40 MIN [id number] Diagnos is: ICD-10- CM E11.9 Type 2 diabete s mellitu s without complic ations< br/> NNAMDI VELASCO 12/04 [facility] OFFICE O/P EST HI 40 MIN [id number] [id number] Diagnos is: ICD-10- CM E11.9 Type 2 diabete s mellitu s without complic ations< br/> NNAMDI VELASCO 12/04 [facility] Out[facility] Encounter [id number] 12/04 [facility] Out[facility] Encounter [id number] 12/04 [facility] Out[facility] Encounter [id number] [id number] NNAMDI VELASCO 12/05 [facility] HC PRO PHONE CALL 5-10 MIN [id number] [id number] Diagnos is: ICD-10- CM E66.9 Obesity , unspeci fied
TOÑO LORD 12/15 [facility] Out[facility] En[facility] [id number] Diagnos is: ICD-10- CM E11.9 Type 2 diabete s mellitu s without complic ations< br/> TOÑO LORD 12/17 [facility] [place] DIAB MANAGE TRN PER INDIV [id number] 1BY. Diagnos is: ICD-10- CM E11.9 Type 2 diabete s mellitu s without complic ations< br/> TERE SLADE 12/24 [place] [facility] Out[facility] Encounter [id number] NNAMDI VELASCO 12/24 [facility] Out[facility] Encounter [id number] 12/25 [facility] Out[facility] Encounter [id number] 12/26 [facility] [id number] 1.12/29 [facility] En[facility] [id number] 1.01/01 [facility] En[facility] [id number] 1.01/02 [facility] En[facility] [id number] 1.01/06 [facility] Encounter [id number] 1.01/07 [facility] Out[facility] Encounter [id number] 1. Diagnos is: ICD-10- CM E11.9 Type 2 diabete s mellitu s without complic ations< br/> TOÑO LORD 01/08 [facility] En[facility] [id number] 01/09 [facility] Out[facility] Encounter [id number] 01/09 [facility] Out[facility] Encounter [id number] 02/03 [facility] PRO PHONE CALL 5-10 MIN [id number] Diagnos is: ICD-10- CM E66.9 Obesity , unspeci fied
RISA, TOÑO 02/04 [facility] Out[facility] En[facility] [id number] 02/06 [facility] Encounter [id number] 02/13 [facility] ADMN SARSCOV2 VACC 1 DOSE [id number] 1. Diagnos is: ICD-10- CM Z23 Encount er for immuniz ation<b r/> ANDIHimanshuWEST ENEIDA 02/16 [facility] Outpatient Encounter [id number] 1. Diagnos is: ICD-10- CM E11.9 Type 2 diabete s mellitu s without complic ations< br/> RISA, TOÑO 02/16 [facility] Outpatient Encounter [id number] 1. Diagnos is: ICD-10- CM E11.9 Type 2 diabete s mellitu s without complic ations< br/> NNAMDI VELASCO 02/20 [facility] Out[facility] Encounter [id number] 1.02/25 [facility]counter [id number] 1[facility]02/26 [facility] HC PRO PHONE CALL 21-30 MIN [id number] 1. Diagnos is: ICD-10- CM I10 Essenti al (primar y) hyperte nsion<b r/> RISAKRISTIETOÑO 02/26 [facility] OFFICE O/P EST HI 40 MIN [id number] Diagnos is: ICD-10- CM E11.9 Type 2 diabete s mellitu s without complic ations< br/> NNAMDI VELASCO 03/05 [facility] CONT GLUC MNTR ANALYSIS I&R [id number] Diagnos is: ICD-10- CM E11.9 Type 2 diabete s mellitu s without complic ations< br/> NNAMDI VELASCO 03/05 [facility] Outpatient Encounter [id number] 1.03/13 [facility] Outpatient Encounter [id number] Diagnos is: ICD-10- CM E11.9 Type 2 diabete s mellitu s without complic ations< br/> RISA TOÑO 03/18 [facility] Outpatient Encounter [id number] 1. Diagnos is: ICD-10- CM E11.9 Type 2 diabete s mellitu s without complic ations< br/> KIMI PHILLIP E M 03/23 [facility] [place] DIAB MANAGE TRN PER INDIV [id number] Diagnos is: ICD-10- CM E11.9 Type 2 diabete s mellitu s without complic ations< br/> TERE SLADE NNIE P 03/25 [place] [facility] Outpatient Encounter [id number] 03/27 [facility] Outpatient Encounter [id number] Diagnos is: ICD-10- CM E11.9 Type 2 diabete s mellitu s without complic ations< br/> NNAMDI VELASCO 03/27 [facility] Outpatient Encounter [id number] 04/06 [facility] OFFICE O/P EST LOW 20 MIN [id number] Diagnos is: ICD-10- CM I51.9 Heart disease , unspeci fied
[place] HORTON 04/06 [facility] Outpatient Encounter [id number] Diagnos is: ICD-10- CM E11.9 Type 2 diabete s mellitu s without complic ations< br/> TOÑO LROD 04/10 [facility] PRO PHONE CALL 5-10 MIN [id number] Diagnos is: ICD-10- CM E11.9 Type 2 diabete s mellitu s without complic ations< br/> DELILAH SANTOS R 04/15 [facility] [place] [facility] [place] [facility] MED NUTRITION INDIV SUBSEQ [id number] Diagnos is: ICD-10- CM E11.9 Type 2 diabete s mellitu s without complic ations< br/> AIDAN TURNER 04/23 [facility] [place] [place] [facility] Outpatient Encounter [id number] 04/27 [facility] [place] [place] [facility] OFFICE O/P EST HI 40 MIN [id number] Diagnos is: ICD-10- CM E11.9 Type 2 diabete s mellitu s without complic ations< br/> Emory HORTON BIJAN Zee 04/29 [facility] [place] [facility] HC PRO PHONE CALL 11-20 MIN [id number] Diagnos is: ICD-10- CM E66.9 Obesity , unspeci fied
BLOSSOM LORDA 05/05 [facility] [place] [place] [facility] Outpatient Encounter [id number] Diagnos is: ICD-10- CM E11.9 Type 2 diabete s mellitu s without complic ations< br/> TOÑO LORD 05/14 [facility] [place] [place] [facility] Outpatient Encounter [id number] 05/27 [facility] [place] Outpatient Encounter [id number] 05/27 [facility] [place] [place] [facility] Outpatient Encounter [id number] 05/28 [facility] [place] [facility] Social History Combined list of available smoking, tobacco, and other social history from Department of Defense and Veterans Affairs facilities. Social History Type Response Date Comment Source Tobacco smoking status [facility] VA-TOBACCO FORMER USER 04/06/2024 [facility] [place] [facility] History of tobacco use VA-TOBACCO QUIT 15 YRS OR MORE 04/06/2024 [facility] [place] [facility] History of tobacco use VA-TOBACCO FORMER USER 04/05/2023 [facility] [place] [facility] History of tobacco use [place] FORMER US[place] 12/28/2021 [facility] [place] [facility] History of tobacco use [place]-TOBACCO FORMER USER 12/02/2020 [facility] [place] [facility] History of tobacco use [place]-TOBACCO FORMER USER 08/18/2019 [facility] [place] [facility] History of tobacco use [place]-TO[place]ACCO FORMER USER 09/23/2018 [facility] [place] [facility] History of tobacco use QUIT TOBACCO USE > 7 YEARS AGO 09/30/2017 [facility] [place] [facility] History of tobacco use QUIT TOBACCO USE > 7 YEARS AGO 08/20/2016 quit 1991 [facility] [place] [facility] History of tobacco use CURRENT SMOKER 06/27/2016 Quit 25 years ago [facility] [place] [facility] History of tobacco use QUIT TOBACCO USE > 7 YEARS AGO 04/18/2015 [facility] [place] [facility] History of tobacco use HISTORY OF SMOKING 03/21/2005 [facility] This section is an empty social history section. [facility] Plan of Care List of future care activities from Department of Veterans Affairs facilities. Additional future care activities may be listed in the Assessment and Plan section. Date/Time Care Activity Care Activity Detail Facili ty 06/01/2024 AMBULATORY - MEDICINE AM[facility]UL[facility] [place] [facility] 09/10/2024 AMBULATORY - NONE [facility] [place] [facility] 10/30/2024 AMBULATORY - MEDICINE [facility] [place] [facility] 04/29/2024 Consult Order COMMUNITY CARE-M ND Cons Clinical Esthetician's Choice [facility] [place] [facility] 06/02/2024 Laboratory - Chief Of Party ry Order HEMOGLOBIN A1C PANEL BLOOD (LAV-BLOOD) SP [facility] [place] [facility] 06/02/2024 Laboratory - Chief Of Party ry Order BASIC METABOLIC PANEL (non-fasting) BLOOD (SST-SERUM) [facility] Advance Directives List of completed, amended, or rescinded Advance Directives on record at Department of [facility] facilities. An actual copy of the Directive is not included. Date Advance Directive Provider Source 02/04/2019 ADVANCE DIRECTIVE CESAR LUA [place] [facility]
--- OUTSIDE RECORDS SUMMARY | 2024-05-29 10:25 | XMS_ITS | Encounter Summary ---
Author Name [place] Address [address] [place] [address] Care Team Providers Care Coiler Name Role Phone STACEY HORTON [facility] Insurance Providers: All historical and current Section [...] STAND YON SELF May 29, [phone] [id number] Abdullahi WILEY PATIENT MEDICARE (WNR) MEDICARE (M) PART B Jul 18, 2012 PART B [id number] Abdullahi WILEY PATIENT MEDICARE (WNR) MEDICARE (M) PART B Jul 18, 2012 PART B [id number] Abdullahi WILEY PATIENT MEDICARE (WNR) MEDICARE (M) PART B Jul 18, 2012 PART B [id number] Abdullahi WILEY PATIENT MEDICARE (WNR) MEDICARE (M) PART A Dec 19, 2011 PART A [id number] [phone] Abdullahi WILEY PATIENT MEDICARE (WNR) MEDICARE (M) PART A Dec 19, 2011 PART A [id number] Abdullahi WILEY PATIENT MEDICARE (WNR) MEDICARE (M) PART A Dec 19, 2011 PART A [id number] Abdullahi WILEY PATIENT Selected Encounter This section includes the information on record at [place] for the Encounter. Date/Time Encounter Type Encounter Description Reason Provider Source May 29, 2023 12:06 PM CONT [facility]UC [facility]TR ANALYSIS I&R ENDOCRINOLOGY ICD-10-CM E11.9 Type 2 diabetes mellitus without complications DEISY VELASCO Afshin Encounter Template Text not used by [place] Assessments - Encounter Diagnoses This section includes the primary and secondary diagnoses documented for the Encounter. Date/Time Primary/Secondary Diagnosis Diagnosis Name Provider Source May 29, 2023 12:15 PM PRIMARY Type 2 diabetes mellitus without complications DEISY VELASCO [place] [facility] [place] [facility] Plan of Treatment: Future Appointments (+ 6 months) and Future Tests (+/- 45 days) The Plan of Treatment section includes future care activities for the patient from all [place] treatmentfacilities. This section includes future appointments and future orders which are active, pending or scheduled. Future Appointments This section includes appointments that were scheduled to occur 6 months from the date of the Encounter, up to a maximum of 20 appointments. The data comes from all [place] treatment facilities. Appointment Date/Time Appointment Type Appointme nt Facility Name Aug 07, 2023 10:00 AM [facility] Sep 04, 2023 10:00 AM AMBULATORY - MEDICINE [place] [facility] [place] [facility] Sep 04, 2023 11:00 AM AMBULATORY - MEDICINE [place] [facility] [place] [facility] Sep 05, 2023 09:00 AM AMBULATORY - MEDICINE [place] [facility] [place] [facility] Sep 09, 2023 02:00 PM AMBULATORY - NONE [place] [facility] [place] [place] [facility] September 23, 2023 11:30 AM AMBULATORY - MEDICINE [place] [facility] [place] [facility] October 04, 2023 11:00 AM AMBULATORY - MEDICINE [place] [facility] [place] [facility] Nov 20, 2023 10:00 AM AMBULATORY - MEDICINE [facility] Active, Pending, and Scheduled Orders This section includes a listing of several types of active, pending, and scheduled orders, including clinic medications orders, diagnostic test orders, procedure orders and consult orders; where the start date of the order is 45 days before the date of the Encounter or 45 days after the date of theEncounter. The data comes from all [place] treatment facilities. Test Date/Time Test Type Test Details Facility Name May 05, 2023 12:00 AM Laboratory - Chemistry Order HEMOGLOBIN A1C PANEL BLOOD (LAV-BLOOD) [facility] May 05, 2023 12:00 AM Laboratory - Chemistry Order BASIC METABOLIC PANEL (non-fasting) BLOOD (SST-SERUM) [facility] Vital Signs: All taken on the encounter date This section contains inpatient and outpatient Vital Signs collected on the date of the Encounter. Date/Time Temperature Pulse Blood Pressure Respiratory Rate SP02 Pain Height Weight Body Mass Index Source May 29, 2023 10:14 AM 97 F 66 /min 120/62 mm[Hg] 16 /min 98 % 3 251.4 lb 35 [facility] Social History: Smoking Status (Most current) and Tobacco Use (All prior to encounter date) This section includes the most current, and the historical, smoking and tobacco- related health factors from the [place] facility where the Encounter took place. Current Smoking Status This section includes the most current smoking, or tobacco-related health factor, from the [place] facility where the Encounter took place. Date/Time Current Smoking Status Comment [facility] clive Apr 05, 2023 11:30 AM VA-TOBACCO FORMER USER [facility] Tobacco Use History This section includes a history of the smoking, or tobacco-related health factors, that were collected on or before the date of the Encounter. The data comes from the [place] facility where the Encounter took place. Date/Time Smoking Status/Tobac co Use Comment Facility Apr 05, 2023 11:30 AM [place]-TOBACCO QUIT 15 YRS OR MORE [facility] Dec 28, 2021 09:30 AM VA-TOBACCO FORMER USER [facility] Dec 28, 2021 09:30 AM VA-TOBACCO QUIT 15 YRS OR MORE [place] [facility] [place] [facility] Dec 02, 2020 09:00 AM VA-TOBACCO FORMER USER [place] [facility] [place] [facility] Dec 02, 2020 09:00 AM VA-TOBACCO QUIT 15 YRS OR MORE [place] [facility] [facility] Aug 18, 2019 03:19 PM VA-TOBACCO FORMER USER [place] [facility] [place] [facility] Aug 18, 2019 03:19 PM VA-TOBACCO QUIT 15 YRS OR MORE [place] [facility] [place] [facility] September 23, 2018 09:58 AM VA-TOBACCO FORMER USER [place] [facility] [place] [facility] September 23, 2018 09:58 AM VA-TOBACCO QUIT 15 YRS OR MORE [place] [facility] [facility] September 30, 2017 09:20 AM QUIT TOBACCO USE > 7 YEARS AGO [place] [facility] [facility] Aug 20, 2016 09:17 AM QUIT TOBACCO USE > 7 YEARS AGO quit 1991 [place] [facility] [facility] Jun 27, 2016 09:45 AM CURRENT SMOKER Quit 25 years ago [place] [facility] [facility] Apr 18, 2015 09:06 AM QUIT TOBACCO USE > 7 YEARS AGO quit in [facility] [place] [facility] Mar 21, 2005 10:12 AM HISTORY OF SMOKING [place] [facility] [place] [facility] Mar 21, 2005 10:12 AM QUIT TOBACCO USE > 7 YEARS AGO [facility] Advance Directives: All historical and current Section Date Range: From patient's date of to the date document was created. This section includes ALL of a patient's completed or amended [place] Advance and Rescinded Directives. The entries below indicate that a directive exists for the patient, but an actual copy is not included with this document. The data comes from all [place] facilities. Date Advance Directives Provider Source Feb 04, 2019 ADVANCE DIRECTIVE CESAR LUA [place] [facility] Encounter Notes: All associated encounter notes This section contains the clinical notes associated to the Encounter. Date/Time Encounter Note(s) Provider Source May 29, 2023 12:06 PM PHYSICIAN NOTE: LOCAL TITLE: MD NOTE STANDARD TITLE: PHYSICIAN NOTE DATE OF NOTE: MAY 29, 2023@12:06 ENTRY DATE: MAY 29, 2023@12:06:55 AUTHOR: DEISY VELASCO COSIGNER: URGENCY: STATUS: COMPLETED Dx: DM 2 Pt Name: Otoniel Wiley Pt : 1945 MR# [id number] Indication for device placement Date placed: Apr 24 2023 Date removed (date to which the CPT code is linked): May 07 2023 Name of device placed: Freestyle Bhargav 2 date of printout of data: Date of interpretation: May 29 2023 Analysis of data (72 hours or more of monitoring required): Caotyre 89% Average 154 GNI 7.0% %CV 32.1% Very High 5% High 24% in range 68% Low 25 Very Low 1% MN 135, 4AM 132, 8AM 140, noon 179, 4PM 160, 8PM 181. Variability fairly wide. Low bg o/n Interpretation of data He would benefit from improved CHO consistency, also from an increase in bfast U500, no change in lunch U500, and a decrease in dinner U500. CPT code for interpretation [id number] /skinny/ DEISY VELASCO MD STAFF PHYSICIAN Signed: 05/29/2023 12:15 DEISY VELASCO [facility]
--- OUTSIDE RECORDS SUMMARY | 2024-05-29 10:26 | XMS_ITS | Encounter Summary ---
Author Name [facility] [place] Address [address] [place] [address] Care Team Providers Care Industrial Radiographer Name Role Phone STACEY HORTON Primary Care [...] STAND YON SELF May 29, [phone] [id number] Abdullahi SEVERINO PATIENT MEDICARE (WNR) MEDICARE (M) PART B Jul 18, 2012 PART B [id number] Abdullahi SEVERINO PATIENT MEDICARE (WNR) MEDICARE (M) PART B Jul 18, 2012 PART B [id number] Abdullahi SEVERINO PATIENT MEDICARE (WNR) MEDICARE (M) PART B Jul 18, 2012 PART B [id number] Abdullahi SEVERINO PATIENT MEDICARE (WNR) MEDICARE (M) PART A Dec 19, 2011 PART A [id number] Abdullahi SEVERINO PATIENT MEDICARE (WNR) MEDICARE (M) PART A Dec 19, 2011 PART A [id number] Abdullahi SEVERINO PATIENT MEDICARE (WNR) MEDICARE (M) PART A Dec 19, 2011 PART A [id number] Abdullahi SEVERINO PATIENT Selected Encounter This section includes the information on record at [place] for the Encounter. Date/Time Encounter Type Encounter Description Reason Pro vider Source Jun 26, 2023 08:58 AM Outpatient Encounter ENDOCRINOLOGY IHE Encounter Template Text not used by [place] Plan of Treatment: Future Appointments (+ 6 months) and Future Tests (+/- 45 days) The Plan of Treatment section includes future care activities for the [facility] [place] [facility] This section includes future appointments and future orders which are active, pending or scheduled. Future Appointments This section includes appointments that were scheduled to occur 6 months from the date of the Encounter, up to a maximum of 20 appointments. The data comes from all [place] treatment facilities. Appointment Date/Time Appointment Type Appointme nt Facility Name Aug 07, 2023 10:00 AM AMBULATORY - MEDICINE [facility] Sep 04, 2023 10:00 AM AMBULATORY - MEDICINE [place] [facility] [place] [facility] Sep 04, 2023 11:00 AM AMBULATORY - MEDICINE [place] [facility] [place] [facility] Sep 05, 2023 09:00 AM AMBULATORY - MEDICINE [place] [facility] [place] [facility] Sep 09, 2023 02:00 PM AMBULATORY - NONE [place] [facility] [place] [facility] September 23, 2023 11:30 AM AMBULATORY - MEDICINE [place] [facility] [place] [facility] October 04, 2023 11:00 AM AMBULATORY - MEDICINE [place] [facility] [place] [facility] Nov 20, 2023 10:00 AM AMBULATORY - MEDICINE [facility] Dec 05, 2023 10:30 AM AMBULATORY - MEDICINE [place] [facility] [place] [facility] Dec 25, 2023 01:00 PM [facility] Social History: Smoking Status (Most current) and Tobacco Use (All prior to encounter date) This section includes the most current, and the historical, smoking and tobacco- related health factors from the [place] facility where the Encounter took place. Current Smoking Status This section includes the most current smoking, or tobacco-related health factor, from the [place] facility where the Encounter took place. Date/Time Current Smoking Status Comment [facility] Apr 05, 2023 11:30 AM VA-TOBACCO FORMER USER [place] [facility] [place] [facility] Tobacco Use History This section includes a history of the smoking, or tobacco-related health factors, that were collected on or before the date of the Encounter. The data comes from the [place] facility where the Encounter took place. Date/Time Smoking Status/Tobac co Use Comment Facility Apr 05, 2023 11:30 AM VA-TOBACCO QUIT 15 YRS OR MORE [place] [facility] [place] [facility] Dec 28, 2021 09:30 AM VA-TOBACCO FORMER USER [place] [facility] [place] [facility] Dec 28, 2021 09:30 AM VA-TOBACCO QUIT 15 YRS OR MORE [place] [facility] [place] [facility] Dec 02, 2020 09:00 AM VA-TOBACCO FORMER USER [place] [facility] [place] [facility] Dec 02, 2020 09:00 AM VA-TOBACCO QUIT 15 YRS OR MORE [place] [facility] [place] [facility] Aug 18, 2019 03:19 PM VA-TOBACCO FORMER USER [place] [facility] [place] [facility] Aug 18, 2019 03:19 PM VA-TOBACCO QUIT 15 YRS OR MORE [place] [facility] [place] [facility] September 23, 2018 09:58 AM VA-TOBACCO FORMER USER [place] [facility] [place] [facility] September 23, 2018 09:58 AM VA-TOBACCO QUIT 15 YRS OR MORE [place] [facility] [place] [facility] September 30, 2017 09:20 AM QUIT TOBACCO USE > 7 YEARS AGO [facility] [place] [facility] Aug 20, 2016 09:17 AM QUIT TOBACCO USE > 7 YEARS AGO quit 1991 [place] [facility] [place] [facility] Jun 27, 2016 09:45 AM CURRENT SMOKER Quit 25 years ago [facility] [place] [facility] Apr 18, 2015 09:06 AM QUIT TOBACCO USE > 7 YEARS AGO quit in 1991 [place] [facility] [place] [facility] Mar 21, 2005 10:12 AM HISTORY OF SMOKING [facility] Mar 21, 2005 10:12 AM QUIT TOBACCO USE > 7 YEARS AGO [facility] Advance Directives: All historical and current Section Date Range: From patient's date of to the date document was created. This section includes ALL of a patient's completed or amended [place] Advance and Rescinded Directives. The entries below indicate that a directive exists for the patient, but an actual copy is not included with this document. The data comes from all [place] facilities. Date Advance Directives Provider Source Feb 04, 2019 ADVANCE DIRECTIVE CESAR LUA [facility] Encounter Notes: All associated encounter notes This section contains the clinical notes associated to the Encounter. Date/Time Encounter Note(s) Provider Source Jun 26, 2023 08:58 AM TELEPHONE ENCOUNTE R NOTE: LOCAL TITLE: TELEPHONE NOTE/SPECIALTY CLINIC STANDARD TITLE: TELEPHONE ENCOUNTER NOTE DATE OF NOTE: JUN 26, 2023@08:58 ENTRY DATE: JUN 26, 2023@08:58:08 AUTHOR: DULCE PATTERSON EXP COSIGNER: URGENCY: STATUS: COMPLETED [place] needs the refill on RU500 syring, has enough for the rest of the week. Address/phone confirmed. /skinny/ DULCE PATTERSON ADVANCED MATERIAL FLOW ENGINEER Signed: 06/26/2023 08:59 Receipt Acknowledged By: 06/28/2023 16:15 /es/ DEISY VELASCO MD STAFF PHYSICIAN 06/26/2023 10:41 /es/ ZULEIKA BRITTON LPN Specialty Care 06/26/2023 09:47 /es/ WILLI PHILLIP RN 06/26/2023 09:18 /es/ YAO HALEY SUPERVISORY MATERIAL FLOW ENGINEER DULCE PATTERSON [facility]
--- OUTSIDE RECORDS SUMMARY | 2024-05-29 10:26 | XMS_ITS | Encounter Summary ---
Author Name [facility] [place] Organization [place] Address [address] [place] [address] Care Team Providers Care Head Trimmer Name Role Phone STACEY HORTON Primary Care [...] STAND YON SELF May 29, [phone] [id number] [phone] Abdullahi SEVERINO PATIENT MEDICARE (WNR) MEDICARE (M) PART B Jul 18, 2012 PART B [id number] [phone] Abdullahi SEVERINO PATIENT MEDICARE (WNR) MEDICARE (M) PART B Jul 18, 2012 PART B [id number] [phone] Abdullahi SEVERINO PATIENT MEDICARE (WNR) MEDICARE (M) PART B Jul 18, 2012 PART B [id number] Abdullahi SEVERINO PATIENT MEDICARE (WNR) MEDICARE (M) PART A Dec 19, 2011 PART A [id number] Abdullahi SEVERINO PATIENT MEDICARE (WNR) MEDICARE (M) PART A Dec 19, 2011 PART A [id number] Abdullahi SEVERINO PATIENT MEDICARE (WNR) MEDICARE (M) PART A Dec 19, 2011 PART A [id number] Abdullahi SEVERINO PATIENT Selected Encounter This section includes the information on record at [place] for the Encounter. Date/Time Encounter Type Encounter Description Reason Pro vider Source Jun 04, 2023 12:00 AM Outpatient Encounter EVENT (HISTORICAL) IHE Encounter Template Text not used by [place] Plan of Treatment: Future Appointments (+ 6 months) and Future Tests (+/- 45 days) The Plan of Treatment section includes future care activities for the patient from all [place] treatmentfacilities. This section includes future appointments and future orders which are active, pending or scheduled. Future Appointments This section includes appointments that were scheduled to occur 6 months from the date of the Encounter, up to a maximum of 20 appointments. The data comes from all [place] treatment facilities. Appointment Date/Time Appointment Type Appointme nt Facility Name Aug 07, 2023 10:00 AM [facility] Sep 04, 2023 10:00 AM AMBULATORY - MEDICINE [place] [facility] Sep 04, 2023 11:00 AM AMBULATORY - MEDICINE [place] [facility] Sep 05, 2023 09:00 AM AMBULATORY - MEDICINE [place] [facility] Sep 09, 2023 02:00 PM AMBULATORY - NONE [place] [facility] [place] [facility] September 23, 2023 11:30 AM AMBULATORY - MEDICINE [place] C [place] [facility] October 04, 2023 11:00 AM AMBULATORY - MEDICINE [place] C [place] [place] [facility] Nov 20, 2023 10:00 [...] of theEncounter. The data comes from all [place] treatment facilities. Test Date/Time Test Type Test Details Facility Name May 05, 2023 12:00 AM Laboratory - Chemistry Order BASIC METABOLIC PANEL (non-fasting) BLOOD (SST-SERUM) [facility] [place] [facility] May 05, 2023 12:00 AM Laboratory - Chemistry Order HEMOGLOBIN A1C PANEL BLOOD (LAV[facility]BLOOD) [facility] Social History: Smoking Status (Most current) and Tobacco Use (All prior to encounter date) This section includes the most current, and the historical, smoking and tobacco- related health factors from the [place] facility where the Encounter took place. Current Smoking Status This section includes the most current smoking, or tobacco-related health factor, from the [place] facility where the Encounter took place. Date/Time Current Smoking Status Comment [facility] Apr 05, 2023 11:30 AM VA-TOBACCO FORMER USER [place] [facility] [place] [facility] Tobacco Use History This section includes a history of the smoking, or tobacco-related health factors, that were collected on or before the date of the Encounter. The data comes from the [place] facility where the Encounter took place. Date/Time Smoking Status/Tobac co Use Comment Facility Apr 05, 2023 11:30 AM VA-TOBACCO QUIT 15 YRS OR MORE [facility] [place] [facility] Dec 28, 2021 09:30 AM VA-TOBACCO FORMER USER VA [facility] [place] [facility] Dec 28, 2021 09:30 AM VA-TOBACCO QUIT 15 YRS OR MORE [facility] [place] [facility] Dec 02, 2020 09:00 AM VA-TOBACCO FORMER USER VA [facility] [place] [facility] Dec 02, 2020 09:00 AM VA-TOBACCO QUIT 15 YRS OR MORE [facility] [place] [facility] Aug 18, 2019 03:19 PM VA-TOBACCO FORMER USER VA [facility] [place] [facility] Aug 18, 2019 03:19 PM VA-TOBACCO QUIT 15 YRS OR MORE [place] [facility] [place] [facility] September 23, 2018 09:58 AM VA-TOBACCO FORMER USER [place] [facility] [place] [facility] September 23, 2018 09:58 AM VA-TOBACCO QUIT 15 YRS OR MORE [facility] [place] [facility] September 30, 2017 09:20 AM QUIT TOBACCO USE > 7 YEARS AGO [facility] Aug 20, 2016 09:17 AM QUIT TOBACCO USE > 7 YEARS AGO quit 1991 [facility] Jun 27, 2016 09:45 AM CURRENT SMOKER [facility] Apr 18, 2015 09:06 AM QUIT TOBACCO USE > 7 YEARS AGO [facility] Mar 21, 2005 10:12 AM HISTORY OF SMOKING [facility] Mar 21, 2005 10:12 AM QUIT TOBACCO USE > 7 [facility] Advance Directives: All historical and current Section Date Range: From patient's date of to the date document was created. This section includes ALL of a patient's completed or amended [place] Advance and Rescinded Directives. The entries below indicate that a directive exists for the patient, but an actual copy is not included with this document. The data comes from all [place] facilities. Date Advance Directives Provider Source Feb 04, 2019 ADVANCE DIRECTIVE CESAR LUA [facility] Encounter Notes: All associated encounter notes This section contains the clinical notes associated to the Encounter. Date/Time Encounter Note(s) Provider Source Jun 04, 2023 12:00 AM NONVA NOTE: LOCAL TITLE: NON-VA OUTPATIENT NOTES STANDARD TITLE: NONVA NOTE DATE OF NOTE: JUN 04, 2023 ENTRY DATE: JUN 28, 2023@09:29:41 AUTHOR: ENE GUEVARA EXP COSIGNER: URGENCY: STATUS: COMPLETED VistA Imaging - Scanned Document SCANNED DOCUMENT SIGNATURE NOT REQUIRED Electronically Filed: 06/28/2023 by: ENE THOMSON [facility]
--- OUTSIDE RECORDS SUMMARY | 2024-05-29 10:26 | XMS_ITS ---
Author Name [facility] [place] Address [address] [place] [address] Care Team Providers Care Rod Filler Name Role Phone LUIS AGGARWAL Primary Care Provider Unavail ble Insurance Providers: [...] STAND YON SELF May 29, [phone] [id number] [phone] Abdullahi SEVERINO PATIENT MEDICARE (WNR) MEDICARE (M) PART B Jul 18, 2012 PART B [id number] Abdullahi SEVERINO PATIENT MEDICARE (WNR) MEDICARE (M) PART B Jul 18, 2012 PART B [id number] Abdullahi SEVERINO PATIENT MEDICARE (WNR) MEDICARE (M) PART B Jul 18, 2012 PART B [id number] Abdullahi SEVERINO PATIENT MEDICARE (WNR) MEDICARE (M) PART A Dec 19, 2011 PART A [id number] Abdullahi SEVERINO PATIENT MEDICARE (WNR) MEDICARE (M) PART A Dec 19, 2011 PART A [id number] Abdullahi SEVERINO PATIENT MEDICARE (WNR) MEDICARE (M) PART A Dec 19, 2011 PART A [id number] Abdullahi SEVERINO PATIENT Selected Encounter This section includes the information on record at [place] for the Encounter. Date/Time Encounter Type Encounter Description Reason Pro vider Source Jul 09, 2023 11:48 AM Outpatient Encounter TELEPHONE PRIMARY CARE IHE Encounter Template Text not used by [place] Plan of Treatment: Future Appointments (+ 6 months) and Future Tests (+/- 45 days) The Plan of Treatment section includes future care activities for the patient from all [place] treatmentfacilities. This section includes future appointments and future orders which are active, pending or scheduled. Future Appointments This section includes appointments that were scheduled to occur 6 months from the date of the Encounter, up to a maximum of 20 appointments. The data comes from all [place] treatment facilities. Appointment Date/Time Appointment Type Appointme nt Facility Name Aug 07, 2023 10:00 AM AMBULATORY - MEDICINE [facility] Sep 04, 2023 10:00 AM AMBULATORY - MEDICINE [place] [facility] Sep 04, 2023 11:00 AM AMBULATORY - MEDICINE [place] [facility] Sep 05, 2023 09:00 AM AMBULATORY - MEDICINE [place] [facility] Sep 09, 2023 02:00 PM AMBULATORY - NONE [place] [place] [facility] September 23, 2023 11:30 AM AMBULATORY - MEDICINE [place] [facility] October 04, 2023 11:00 AM AMBULATORY - MEDICINE [place] [facility] Nov 20, 2023 10:00 AM AMBULATORY - MEDICINE [facility] Dec 05, 2023 10:30 AM AMBULATORY - MEDICINE [place] [facility] Dec 25, 2023 01:00 PM AMBULATORY - MEDICINE SPRI [facility] Dec 26, 2023 10:45 AM AMBULATORY - NONE [place] [facility] Dec 31, 2023 08:00 AM AMBULATORY - MEDICINE [place] [facility] Social History: Smoking Status (Most current) and Tobacco Use (All prior to encounter date) This section includes the most current, and the historical, smoking and tobacco- related health factors from the [place] facility where the Encounter took place. Current Smoking Status This section includes the most current smoking, or tobacco-related health factor, from the [place] facility where the Encounter took place. Date/Time Current Smoking Status Comment Facil it Apr 05, 2023 11:30 AM VA-TOBACCO QUIT 15 YRS OR MORE [place] [facility] Tobacco Use History This section includes a history of the smoking, or tobacco-related health factors, that were collected on or before the date of the Encounter. The data comes from the [place] facility where the Encounter took place. Date/Time Smoking Status/Tobac co Use Comment Facility Apr 05, 2023 11:30 AM VA-TOBACCO QUIT 15 YRS OR MORE [place] [facility] Dec 28, 2021 09:30 AM VA-TOBACCO FORMER USER [place] [place] [facility] Dec 28, 2021 09:30 AM VA-TOBACCO QUIT 15 YRS OR MORE [place] [facility] Dec 02, 2020 09:00 AM VA-TOBACCO FORMER USER [place] [facility] Dec 02, 2020 09:00 AM VA-TOBACCO QUIT 15 YRS OR MORE [place] [facility] Aug 18, 2019 03:19 PM VA-TOBACCO FORMER USER [place] [place] [facility] Aug 18, 2019 03:19 PM VA-TOBACCO QUIT 15 YRS OR MORE [place] [facility] September 23, 2018 09:58 AM VA-TOBACCO FORMER USER [place] [place] [facility] September 23, 2018 09:58 AM VA-TOBACCO QUIT 15 YRS OR MORE [place] [facility] September 30, 2017 09:20 AM QUIT TOBACCO USE > 7 YEARS AGO [place] [place] [facility] Aug 20, 2016 09:17 AM QUIT TOBACCO USE > 7 YEARS AGO quit 1992 [place] [facility] Jun 27, 2016 09:45 AM CURRENT SMOKER Quit 25 years ago [facility] Apr 18, 2015 09:06 AM QUIT TOBACCO USE > 7 YEARS AGO quit in 1991 [facility] Mar 21, 2005 10:12 AM HISTORY OF SMOKING [facility] Mar 21, 2005 10:12 AM QUIT TOBACCO USE > 7 YEARS AGO [facility] Advance Directives: All historical and current Section Date Range: From patient's date of to the date document was created. This section includes ALL of a patient's completed or amended [place] Advance and Rescinded Directives. The entries below indicate that a directive exists for the patient, but an actual copy is not included with this document. The data comes from all [place] facilities. Date Advance Directives Provider Source Feb 04, 2019 ADVANCE DIRECTIVE STONEYCESAR [facility] W STRN [facility] Encounter Notes: All associated encounter notes This section contains the clinical notes associated to the Encounter. Date/Time Encounter Note(s) Provider Source Jul 09, 2023 11:48 AM CARE COORDINATION HOME TELEHEALTH NOTE: LOCAL TITLE: HT NOTE STANDARD TITLE: CARE COORDINATION HOME TELEHEALTH NOTE DATE OF NOTE: JUL 09, 2023@11:48 ENTRY DATE: JUL 09, 2023@11:49 AUTHOR: CORRIE WALLS COSIGNER: URGENCY: STATUS: COMPLETED CARL SEVERINO (-[id number]) Vital Sign for: 07/03/2023 - 07/09/2023 (All times are EST; All weights are lbs) Primary DMP: DM Comorbid(s): HTN Summary Sys BP Krishnamurthy BP HR Glu Pain High 185 140 70 180 Low 115 60 48 103 Average 147 82 58 145 Date Time Sys Krishnamurthy HR Time Glu Time Pain 07/09/2023 09:50 154/81 57 09:40 180 07/08/2023 08:01 115/61 52 07:45 143 07/07/2023 07:40 123/60 48 07:31 103 07/06/2023 22:18 185/140 70 - 07/06/2023 21:01 168/83 70 - 07/06/2023 19:29 159/74 61 19:17 155 07/05/2023 07:05 150/69 60 07:00 156 07/04/2023 08:32 137/97 54 08:10 120 07/03/2023 11:54 129/72 54 11:45 160 Source: [employer]; [employer] Higher BP over the weekend. Called [facility] to review above HT transmissions, assess for change in condition, review medications/compliance and address any questions/concerns. Reached voicemail,left hippa compliant message, including call back information and requesting [facility] return call. Will continue to monitor and follow up accordingly. Forwarding to provider, no action requested, for your review only. Thank you. /skinny/ CORRIE WALLS, MSN, RN [facility] TELEHEALTH LEAD WEATHERIZATION SPECIALIST Signed: 07/09/2023 11:50 Receipt Acknowledged By: 07/09/2023 11:53 /es/ Luis Aggarwal DNP, GRAVEL MACHINE OPERATOR-BC, CNL Primary Care Nurse Practitioner CORRIE WALLS [facility]
--- OUTSIDE RECORDS SUMMARY | 2024-05-29 10:26 | XMS_ITS | Encounter Summary ---
Author Name [facility] [place] Address [address] [place] [address] Care Team Providers Care Alcohol Still Operator Name Role Phone STACEY HORTON Primary Care [...] STAND YON SELF May 29, 2001 104 [id number] [phone] Abdullahi SEVERINO PATIENT MEDICARE (WNR) MEDICARE (M) PART B Jul 18, 2012 PART B [id number] Abdullahi SEVERINO PATIENT MEDICARE (WNR) MEDICARE (M) PART B Jul 18, 2012 PART B [id number] [phone] Abdullahi SEVERINO PATIENT MEDICARE (WNR) MEDICARE (M) PART B Jul 18, 2012 PART B [id number] Abdullahi SEVERINO PATIENT MEDICARE (WNR) MEDICARE (M) PART A Dec 19, 2011 PART A [id number] Abdullahi SEVERINO PATIENT MEDICARE (WNR) MEDICARE (M) PART A Dec 19, 2011 PART A [id number] Abdullahi SEVERINO PATIENT MEDICARE (WNR) MEDICARE (M) PART A Dec 19, 2011 PART A [id number] [phone] Abdullahi SEVERINO PATIENT Selected Encounter This section includes the information on record at [place] for the Encounter. Date/Time Encounter Type Encounter Description Reason Pro vider Source Jun 26, 2023 12:00 AM Outpatient Encounter EVENT (HISTORICAL) IHE Encounter Template Text not used by [place] Plan of Treatment: Future Appointments (+ 6 months) and Future Tests (+/- 45 days) The Plan of Treatment section includes future care activities for the patient from all [place] treatmentfacilities. This section includes future appointments and future orders which are active, pending or scheduled. Future Appointments This section includes appointments that were scheduled to occur 6 months from the date of the Encounter, up to a maximum of 20 appointments. The data comes from all [place] treatment facilities. Appointment Date/Time Appointment Type Appointme nt Facility Name Aug 07, 2023 10:00 AM AMBULATORY - MEDICINE [facility] Sep 04, 2023 10:00 AM AMBULATORY - MEDICINE [place] [facility] Sep 04, 2023 11:00 AM AMBULATORY - MEDICINE [place] [facility] Sep 05, 2023 09:00 AM AMBULATORY - MEDICINE [place] [facility] Sep 09, 2023 02:00 PM AMBULATORY - NONE [place] [facility] [place] [facility] September 23, 2023 11:30 AM AMBULATORY - MEDICINE [place] C [place] [facility] October 04, 2023 11:00 AM AMBULATORY - MEDICINE [place] C [place] [facility] Nov 20, 2023 10:00 AM [facility] Dec 05, 2023 10:30 AM AMBULATORY - MEDICINE [place] [facility] Dec 25, 2023 01:00 PM AMBULATORY - MEDICINE SPRI [facility] Social History: Smoking Status (Most current) and Tobacco Use (All prior to encounter date) This section includes the most current, and the historical, smoking and tobacco- related health factors from the [place] facility where the Encounter took place. Current Smoking Status This section includes the most current smoking, or tobacco-related health factor, from the [place] facility where the Encounter took place. Date/Time Current Smoking Status Comment Facil it Apr 05, 2023 11:30 AM VA-TOBACCO FORMER USER [place] [facility] [facility] Tobacco Use History This section includes a history of the smoking, or tobacco-related health factors, that were collected on or before the date of the Encounter. The data comes from the [place] facility where the Encounter took place. Date/Time Smoking Status/Tobac co Use Comment Facility Apr 05, 2023 11:30 AM VA-TOBACCO QUIT 15 YRS OR MORE [place] [facility] [place] [facility] Dec 28, 2021 09:30 AM VA-TOBACCO FORMER USER [place] [facility] [place] [facility] Dec 28, 2021 09:30 AM VA-TOBACCO QUIT 15 YRS OR MORE [place] [facility] [place] [facility] Dec 02, 2020 09:00 AM VA-TOBACCO FORMER USER [place] [facility] [place] [facility] Dec 02, 2020 09:00 AM VA-TOBACCO QUIT 15 YRS OR MORE [place] [facility] [place] [facility] Aug 18, 2019 03:19 PM VA-TOBACCO FORMER USER [place] [facility] [place] [facility] Aug 18, 2019 03:19 PM VA-TOBACCO QUIT 15 YRS OR MORE [place] [facility] [place] [facility] September 23, 2018 09:58 AM VA-TOBACCO FORMER USER [place] [facility] September 23, 2018 09:58 AM VA-TOBACCO QUIT 15 YRS OR MORE [place] [facility] [place] [facility] September 30, 2017 09:20 AM QUIT TOBACCO USE > 7 YEARS AGO [place] [facility] [place] [facility] Aug 20, 2016 09:17 AM QUIT TOBACCO USE > 7 YEARS AGO quit 1991 [place] [facility] [place] [facility] Jun 27, 2016 09:45 AM CURRENT SMOKER Quit 25 years ago [facility] [place] [facility] Apr 18, 2015 09:06 AM QUIT TOBACCO USE > 7 YEARS AGO quit in 1991 [place] [facility] Mar 21, 2005 10:12 AM HISTORY OF SMOKING [facility] Mar 21, 2005 10:12 AM QUIT TOBACCO USE > 7 YEARS AGO [facility] Advance Directives: All historical and current Section Date Range: From patient's date of to the date document was created. This section includes ALL of a patient's completed or amended [place] Advance and Rescinded Directives. The entries below indicate that a directive exists for the patient, but an actual copy is not included with this document. The data comes from all [place] facilities. Date Advance Directives Provider Source Feb 04, 2019 ADVANCE DIRECTIVE CESAR LUA [facility] Encounter Notes: All associated encounter notes This section contains the clinical notes associated to the Encounter. Date/Time Encounter Note(s) Provider Source Jun 26, 2023 12:00 AM NONVA NOTE: LOCAL TITLE: NON-VA OUTPATIENT NOTES STANDARD TITLE: NONVA NOTE DATE OF NOTE: JUN 26, 2023 ENTRY DATE: JUL 04, 2023@14:17:05 AUTHOR: АНДРЕЙ KIDD EXP COSIGNER: URGENCY: STATUS: COMPLETED VistA Imaging - Scanned Document SCANNED DOCUMENT SIGNATURE NOT REQUIRED Electronically Filed: 07/04/2023 by: АНДРЕЙ KIDD NURSING PROGRAM DIRECTOR АНДРЕЙ KIDD [facility]
--- OUTSIDE RECORDS SUMMARY | 2024-05-29 10:26 | XMS_ITS | Encounter Summary ---
Author Name [facility] [place] Address [address] [place] [address] Care Team Providers Care Software Test Engineer Name Role Phone STACEY HORTON Primary Care [...] STAND YON SELF May 29, [phone] [id number] [phone] Abdullahi SEVERINO PATIENT MEDICARE (WNR) MEDICARE (M) PART B Jul 18, 2012 PART B [id number] [phone] Abdullahi SEVERINO PATIENT MEDICARE (WNR) MEDICARE (M) PART B Jul 18, 2012 PART B [id number] Abdullahi SEVERINO PATIENT MEDICARE (WNR) MEDICARE (M) PART B Jul 18, 2012 PART B [id number] Abdullahi SEVERINO PATIENT MEDICARE (WNR) MEDICARE (M) PART A Dec 19, 2011 PART A [id number] Abdullahi SEVERINO PATIENT MEDICARE (WNR) MEDICARE (M) PART A Dec 19, 2011 PART A [id number] [phone] Abdullahi SEVERINO PATIENT MEDICARE (WNR) MEDICARE (M) PART A Dec 19, 2011 PART A [id number] Abdullahi SEVERINO PATIENT Selected Encounter This section includes the information on record at [place] for the Encounter. Date/Time Encounter Type Encounter Description Reason Provider Source Jul 18, 2023 11:40 AM Outpatient Encounter HT NON-VIDEO MONITORING ICD-10-CM E11.9 Type 2 diabetes mellitus without complications KRISTIE LORD [facility] Encounter Template Text not used by [place] Assessments - Encounter Diagnoses This section includes the primary and secondary diagnoses documented for the Encounter. Date/Time Primary/Secondary Diagnosis Diagnosis Name Provider Source Jul 18, 2023 12:31 PM PRIMARY Type 2 diabetes mellitus without complications [facility] [place] [facility] Jul 18, 2023 12:31 PM SECONDARY Essential (primary) hypertension RISA,BRE [facility] [facility] Plan of Treatment: Future Appointments (+ 6 months) and Future Tests (+/- 45 days) The Plan of Treatment section includes future care activities for the patient from all [place] treatmentfacilities. This section includes future appointments and future orders which are active, pending or scheduled. Future Appointments This section includes appointments that were scheduled to occur 6 months from the date of the Encounter, up to a maximum of 20 appointments. The data comes from all [place] treatment facilities. Appointment Date/Time Appointment Type Appointme nt Facility Name Aug 07, 2023 10:00 AM AMBULATORY - MEDICINE [facility] Sep 04, 2023 10:00 AM AM[place]ORY [place] [facility] Sep 04, 2023 11:00 AM AM[place]ORY [place] [facility] Sep 05, 2023 09:00 AM AM[place]ORY [place] [facility] Sep 09, 2023 02:00 PM AMBULATORY - NONE [facility] [place] [facility] September 23, 2023 11:30 AM AM[place]ULATORY [place] [facility] October 04, 2023 11:00 AM AM[place]ATORY [place] [facility] Nov 20, 2023 10:00 AM AMBULATORY - MEDICINE [facility] Dec 05, 2023 10:30 AM AM[place] [facility] Dec 25, 2023 01:00 PM [facility] Dec 26, 2023 10:45 AM [facility]ONE [place] [facility] Dec 31, 2023 08:00 AM AMBULATORY - [facility]ICINE [facility] Lab Results: +/- 30 days of the encounter This section includes the Chemistry and Hematology Lab Results on record with [place] for the patient. Radiology Reports and Pathology Reports are provided separately, in subsequent sections. Lab Results This section contains the Chemistry/Hematology Results that were resulted 30 days before or 30 daysafter the date of the Encounter. Date/Time Source Result Type Result - Unit Interpretation Reference Range Comment Aug 16, 2023 07:56 AM [facility] MICROALBUMIN CREATININE RATIO PANEL Specimen Type: URINE No comment entered. Ordering Provider: DEISY VELASCO Report Released Date/Time: May 29, 2023 12:04 PM Reporting Lab: [address] [address] Performing Lab: [address] [address] MICROALBUMIN/C REATININE RATIO 111.2 mg/g H 0-29.9 MICROALBUMIN,Q UANTITATIVE 9.3 mg/dL RR UNAVAIL CREATININE URINE 83.60 mg/dL Aug 16, 2023 07:56 AM [facility] HEMOGLOBIN A1C PANEL Specimen Type: BLOOD Comment: Values obtained from A1C measurements can vary. For atypical A1C assays, a reported value of 7.0 could actually be between 6.72 and 7.28 if measured by a reference method. A reported value of 9.0 could actually be between 8.73 and 9.27. Ref: http://www.ngs p.org/CAPdata. asp Ordering Provider: DEISY VELASCO Report Released Date/Time: May 29, 2023 12:04 PM Reporting Lab: [facility] [address] [address] Performing Lab: [address] [address] HEMOGLOBIN A1C 7.3 H 4.0-5.6 Aug 16, 2023 07:56 AM [facility] LIPID PANEL FASTING Specimen Type: SERUM No comment entered. Ordering Provider: DEISY VELASCO Report Released Date/Time: May 29, 2023 12:04 PM Reporting Lab: [facility] [address] [address] Performing Lab: [address] [address] CHOLESTEROL 122 mg/dL TRIGLYCERIDE 399 mg/dL H 0-150 LDL calculated Reflex to dLD L mg/dL 0-129 CHOL/HDL 3.9 HDL CHOLESTEROL 31 mg/dL L 40-60 LDL DIRECT 45 mg/dL Aug 16, 2023 07:56 AM [facility] BASIC METABOLIC PANEL (fasting) Specimen Type: SERUM No comment entered. Ordering Provider: DEISY VELASCO Report Released Date/Time: May 29, 2023 12:04 PM Reporting Lab: [address] [address] Performing Lab: [address] [address] UREA NITROGEN 17 mg/dL 7-25 GLUCOSE 162 mg/dL H 65-100 SODIUM 139 mmol/L 135-145 POTASSIUM 4.1 mmol/L 3.5-5.0 CHLORIDE 104 mmol/L 100-110 CO2 24 meq/L 20-30 CREATININE, Serum 1.06 mg/dL 0.50-1.40 eGFR(CKD-EPI 2020) 72 mL/min >60 Social History: Smoking Status (Most current) and Tobacco Use (All prior to encounter date) This section includes the most current, and the historical, smoking and tobacco- related health factors from the [place] facility where the Encounter took place. Current Smoking Status This section includes the most current smoking, or tobacco-related health factor, from the [place] facility where the Encounter took place. Date/Time Current Smoking Status Comment Therese duffy Apr 05, 2023 11:30 AM VA-TOBACCO FORMER USER [place] [facility] [place] [facility] Tobacco Use History This section includes a history of the smoking, or tobacco-related health factors, that were collected on or before the date of the Encounter. The data comes from the [place] facility where the Encounter took place. Date/Time Smoking Status/Tobac co Use Comment [facility] Apr 05, 2023 11:30 AM VA-TOBACCO QUIT 15 YRS OR MORE [place] [facility] [place] [facility] Dec 28, 2021 09:30 AM VA-TOBACCO FORMER USER [facility] [place] [facility] Dec 28, 2021 09:30 AM VA-TOBACCO QUIT 15 YRS OR MORE [place] [facility] [place] [facility] Dec 02, 2020 09:00 AM VA-TOBACCO FORMER USER [place] [facility] [place] [facility] Dec 02, 2020 09:00 AM VA-TOBACCO QUIT 15 YRS OR MORE [place] [facility] [place] [facility] Aug 18, 2019 03:19 PM VA-TOBACCO FORMER USER [facility] [place] [facility] Aug 18, 2019 03:19 PM VA-TOBACCO QUIT 15 YRS OR MORE [place] [facility] [place] [facility] September 23, 2018 09:58 AM VA-TOBACCO FORMER USER [place] [facility] [place] [facility] September 23, 2018 09:58 AM VA-TOBACCO QUIT 15 YRS OR MORE [place] [facility] [place] [facility] September 30, 2017 09:20 AM QUIT TOBACCO USE > 7 YEARS AGO [place] [facility] [place] [facility] Aug 20, 2016 09:17 AM QUIT TOBACCO USE > 7 YEARS AGO quit 1991 [place] [facility] [facility] Jun 27, 2016 09:45 AM CURRENT SMOKER Quit 25 years ago [place] [facility] [place] [facility] Apr 18, 2015 09:06 AM QUIT TOBACCO USE > 7 YEARS AGO quit in 1991 [place] [facility] Mar 21, 2005 10:12 AM HISTORY OF SMOKING [place] [facility] [place] [facility] Mar 21, 2005 10:12 AM QUIT TOBACCO USE > 7 YEARS AGO [place] [facility] [place] [facility] Advance Directives: All historical and current Section Date Range: From patient's date of to the date document was created. This section includes ALL of a patient's completed or amended [place] Advance and Rescinded Directives. The entries below indicate that a directive exists for the patient, but an actual copy is not included with this document. The data comes from all [place] facilities. Date Advance Directives Provider Source Feb 04, 2019 ADVANCE DIRECTIVE CESAR LUA [place] [facility] Encounter Notes: All associated encounter notes This section contains the clinical notes associated to the Encounter. Date/Time Encounter Note(s) Provider Source Jul 18, 2023 12:29 PM CARE COORDINATION HOME TELEHEALTH SUMMARIZATION NOTE: LOCAL TITLE: HT MONTHLY MONITOR NOTE STANDARD TITLE: CARE COORDINATION HOME TELEHEALTH SUMMARIZATION DATE OF NOTE: JUL 18, 2023@12:29 ENTRY DATE: JUL 18, 2023@12:29:27 AUTHOR: TOÑO LORD EXP COSIGNER: URGENCY: STATUS: COMPLETED The [facility] is enrolled in the Home Telehealth (HT) program and continues to be monitored via HT technology. The data sent by the is reviewed and analyzed by the staff, who provide ongoing case management and health education while communicating and collaborating with the health care team as appropriate. This note covers a total of 30 minutes for the month monitored. Month monitored: June 2023 DX: DM/HTN /es/ TOÑO LORD RN RPM-Home Telehealth Appeals Representative Signed: 07/18/2023 12:32 TOÑ[facility] LORD [facility]
--- OUTSIDE RECORDS SUMMARY | 2024-05-29 10:26 | XMS_ITS | Encounter Summary ---
Author Name [facility] [place] [facility] [place] Address [address] [place] [address] Care Team Providers Care Starch Crab Name Role Phone STACEY HORTON Primary [facility] Provider [facility] Insurance Providers: All historical and [...] STAND YON SELF May 29, [phone] [id number] [phone] Abdullahi SEVERINO PATIENT MEDICARE (WNR) MEDICARE (M) PART B Jul 18, 2012 PART B [id number] Abdullahi SEVERINO PATIENT MEDICARE (WNR) MEDICARE (M) PART B Jul 18, 2012 PART B [id number] Abdullahi SEVERINO PATIENT MEDICARE (WNR) MEDICARE (M) PART B Jul 18, 2012 PART B [id number] [phone] Abdullahi SEVERINO PATIENT MEDICARE (WNR) MEDICARE (M) PART A Dec 19, 2011 PART A [id number] [phone] Abdullahi SEVERINO PATIENT MEDICARE (WNR) MEDICARE (M) PART A Dec 19, 2011 PART A [id number] Abdullahi SEVERINO PATIENT MEDICARE (WNR) MEDICARE (M) PART A Dec 19, 2011 PART A [id number] [phone] Abdullahi SEVERINO PATIENT Selected Encounter This section includes the information on record at [place] for the Encounter. Date/Time Encounter Type Encounter Description Reason Provider Source Jul 05, 2023 02:10 PM POS AIRWAY PRESSURE CPAP TELEPHONE/MEDICIN E ICD-10-CM G47.33 Obstructive sleep apnea (adult) (pediatric) LIONEL HUTCHINSON [facility] Encounter Template Text not used by [place] Assessments - Encounter Diagnoses This section includes the primary and secondary diagnoses documented for the Encounter. Date/Time Primary/Secondary Diagnosis Diagnosis Name Provider Source Jul 05, 2023 02:10 PM PRIMARY Obstructive sleep apnea (adult) (pediatric) LIONEL HUTCHINSON [place] Plan of Treatment: Future Appointments (+ 6 months) and Future Tests (+/- 45 days) The Plan of Treatment section includes [facility] [place] [facility] This section includes future appointments and future orders which are active, pending or scheduled. Future Appointments This section includes appointments that were scheduled to occur 6 months from the date of the Encounter, up to a maximum of 20 appointments. The data comes from all [place] treatment facilities. Appointment Date/Time Appointment Type Appointme nt Facility Name Aug 07, 2023 10:00 AM AMBULATORY - MEDICINE [facility] Sep 04, 2023 10:00 AM AMBULATORY - MEDICINE [place] [facility] [place] [facility] Sep 04, 2023 11:00 AM AMBULATORY - MEDICINE [facility] [place] [facility] Sep 05, 2023 09:00 AM AMBULATORY - MEDICINE [facility] [place] [facility] Sep 09, 2023 02:00 PM AMBULATORY - NONE [facility] [place] [facility] September 23, 2023 11:30 AM AMBULATORY - MEDICINE [facility] [place] [facility] October 04, 2023 11:00 AM AMBULATORY - MEDICINE [facility] [place] [facility] Nov 20, 2023 10:00 AM AMBULATORY - MEDICINE [facility] Dec 05, 2023 10:30 AM AMBULATORY - MEDICINE [place] [facility] [place] [facility] Dec 25, 2023 01:00 PM AMBULATORY - MEDICINE [facility] Dec 26, 2023 10:45 AM AMBULATORY - NONE [place] [facility] [place] [facility] Dec 31, 2023 08:00 AM AMBULATORY - MEDICINE [facility] C [facility] Advance Directives: All historical and current Section Date Range: From patient's date of to the date document was created. This section includes ALL of a patient's completed or amended [place] Advance and Rescinded Directives. The entries below indicate that a directive exists for the patient, but an actual copy is not included with this document. The data comes from all [place] facilities. Date Advance Directives Provider Source Feb 04, 2019 ADVANCE DIRECTIVE CESAR LUA [place] [facility] Encounter Notes: All associated encounter notes This section contains the clinical notes associated to the Encounter. Date/Time Encounter Note(s) Provider Source Jul 05, 2023 02:11 PM RESPIRATORY THERAP Y NOTE: LOCAL TITLE: RESPIRATORY THERAPY NOTE(BLANK) STANDARD TITLE: RESPIRATORY THERAPY NOTE DATE OF NOTE: JUL 05, 2023@14:11 ENTRY DATE: JUL 05, 2023@14:11:06 AUTHOR: LIONEL HUTCHINSON COSIGNER: URGENCY: STATUS: COMPLETED Telephone Coding and Documentation: Diagnosis: Sleep Apnea Time spent with Patient via telephone: 10 minutes. contacted for Cpap replacement follow up and we discussed data. He says he hasn't been using it lately because it keeps shutting off. Anthony informed he has a very large leak in his mask and to snug it up some and the Smart Stop feature is on and the cpap is stopping because of the large leak. He says he will shut it off and if he has questions will call back because he has to pick his up. He declines supplies at this time. [employer]PL[employer] PRO[employer] Patient APAP compliance data reviewed via the [employer] program for the last 60 days. SETTINGS: CPAP [id number] TOTAL DAYS USED 50 DAYS USED > 4hrs 6 AVG USAGE 2 hours LEAK 46 AHI: 2 Central 0 These results indicate Anthony is not compliant. If pt has any questions or concerns regarding Apap, he/she can contact Respiratory at [phone] extension [phone]. /skinny/ LIONEL HUTCHINSON CRT RESPIRATORY THERAPIST Signed: 07/05/2023 14:20 LIONEL HUTCHINSON
--- OUTSIDE RECORDS SUMMARY | 2024-05-29 10:26 | XMS_ITS | Encounter Summary ---
Author Name [facility] [place] Address [address] [place] [address] Care Team Providers Care Program Professional Name Role Phone LUIS AGGARWAL [facility] Insurance Providers: All historical and current [...] STAND YON SELF May 29, [phone] [id number] Abdullahi SEVERINO PATIENT MEDICARE (WNR) MEDICARE (M) PART B Jul 18, 2012 PART B [id number] Abdullahi SEVERINO PATIENT MEDICARE (WNR) MEDICARE (M) PART B Jul 18, 2012 PART B [id number] 96A Abdullahi SEVERINO PATIENT MEDICARE (WNR) MEDICARE (M) PART B Jul 18, 2012 PART B [id number] Abdullahi SEVERINO PATIENT MEDICARE (WNR) MEDICARE (M) PART A Dec 19, 2011 PART A [id number] 96A Abdullhai SEVERINO PATIENT MEDICARE (WNR) MEDICARE (M) PART A Dec 19, 2011 PART A [id number] Abdullahi SEVERINO PATIENT MEDICARE (WNR) MEDICARE (M) PART A Dec 19, 2011 PART A [id number] Abdullahi SEVERINO PATIENT Selected Encounter This section includes the information on [place] at [place] for the Encounter. Date/Time Encounter Type Encounter Description Reason Provider Source Jun 21, 2023 03:50 PM HC PRO PHONE CALL 11-20 MIN TELEPHONE/MEDICIN E ICD-10-CM I10 Essential (primary) hypertension KRISTIE LORD IHE Encounter Template Text not used by [place] Assessments - Encounter Diagnoses This section includes the primary and secondary diagnoses documented for the Encounter. Date/Time Primary/Secondary Diagnosis Diagnosis Name Provider Source Jun 21, 2023 03:50 PM PRIMARY Essential (primary) hypertension KRISTIE LORD NDA [place] [facility] [place] [facility] Plan of Treatment: Future Appointments (+ 6 months) and Future Tests (+/- 45 days) The Plan of Treatment section includes future care activities for the patient from all [place] [facility]. This section includes future appointments and future [...] 07, 2023 10:00 AM [facility] Sep 04, 2023 10:00 AM AMBULATORY - [place]ICINE [place] [facility] [place] [facility] Sep 04, 2023 11:00 AM AMBULATORY - MEDICINE [place] [facility] [place] [facility] Sep 05, 2023 09:00 AM AMBULATORY - MEDICINE [place] [facility] [place] [facility] Sep 09, 2023 02:00 PM AMBULATORY - NONE [place] [facility] [place] [facility] September 23, 2023 11:30 AM AMBULATORY - MEDICINE [place] [facility] [place] [facility] October 04, 2023 11:00 AM AMBULATORY - MEDICINE [place] [facility] [place] [facility] Nov 20, 2023 10:00 AM [facility] Dec 05, 2023 10:30 AM AMBULATORY - [place]ICINE [place] [facility] [place] [facility] Social History: Smoking Status (Most current) [...] took place. Date/Time Current Smoking Status Comment [facility] Apr 05, 2023 11:30 AM VA-TOBACCO FORMER USER [place] [facility] [place] [facility] Tobacco Use History This section includes a history of the smoking, or tobacco-related health factors, that were collected on or before the date of the Encounter. The data comes from the [place] facility where the Encounter took place. Date/Time Smoking Status/Tobac co Use Comment Facility Apr 05, 2023 11:30 AM VA-TOBACCO QUIT 15 YRS OR MORE [facility] [place] [facility] Dec 28, 2021 09:30 AM VA-TOBACCO FORMER USER [facility] [place] [facility] Dec 28, 2021 09:30 AM VA-TOBACCO QUIT 15 YRS OR MORE [facility] [place] [facility] Dec 02, 2020 09:00 AM VA-TOBACCO FORMER USER [facility] [facility] Dec 02, 2020 09:00 AM VA-TOBACCO QUIT 15 YRS OR MORE [facility] [place] [facility] Aug 18, 2019 03:19 PM VA-TOBACCO FORMER USER [facility] [place] [facility] Aug 18, 2019 03:19 PM VA-TOBACCO QUIT 15 YRS OR MORE [facility] [place] [facility] September 23, 2018 09:58 AM VA-TOBACCO FORMER USER [facility] [place] [facility] September 23, 2018 09:58 AM VA-TOBACCO QUIT 15 YRS OR MORE [facility] [place] [facility] September 30, 2017 09:20 AM QUIT TOBACCO USE > 7 YEARS AGO [facility] [place] [place] [facility] Aug 20, 2016 09:17 AM QUIT TOBACCO USE > 7 YEARS AGO quit 1991 [facility] Jun 27, 2016 09:45 AM CURRENT SMOKER Quit 25 years ago [facility] Apr 18, 2015 09:06 AM QUIT TOBACCO USE > 7 YEARS AGO quit in 1991 [facility] Mar 21, 2005 10:12 AM HISTORY OF SMOKING [facility] Mar 21, 2005 10:12 AM QUIT TOBACCO USE > 7 YEARS AGO [facility] Advance Directives: All historical and current [...] Feb 04, 2019 ADVANCE DIRECTIVE CESAR LUA [facility] Encounter Notes: All associated encounter notes This section contains the clinical notes associated to the Encounter. Date/Time Encounter Note(s) Provider Source Jun 21, 2023 03:51 PM CARE COORDINATION HOME TELEHEALTH FOLLOW-UP NOTE: LOCAL TITLE: HT INTERVENTION NOTE STANDARD TITLE: CARE COORDINATION HOME TELEHEALTH FOLLOW-UP NOTE DATE OF NOTE: JUN 21, 2023@15:51 ENTRY DATE: JUN 21, 2023@15:51:05 AUTHOR: TOÑO LORD EXP COSIGNER: URGENCY: STATUS: COMPLETED [place] is actively enrolled in the Home Telehealth program. Review of data shows the following out of range responses: Measurements: CARL SEVERINO (-[id number]) Vital Sign for: 05/23/2023 - 06/21/2023 (All times are EST; All weights are lbs) Primary DMP: DM Comorbid(s): HTN Summary Sys BP Krishnamurthy BP HR Glu Pain High 185 101 [id number] 4 Low 99 50 44 75 4 Average 142 72 63 135 4.0 Date Time Sys Krishnamurthy HR Time Glu Time Pain ========= 06/21/2023 13:23 185/80 62 13:16 149 06/20/2023 08:04 138/70 56 07:56 88 06/19/2023 09:20 183/66 67 09:14 102 06/19/2023 08:22 176/98 67 08:21 75 06/18/2023 07:27 152/69 50 07:19 140 06/17/2023 07:39 158/74 65 07:30 150 06/16/2023 12:51 139/98 72 12:46 169 06/15/2023 23:13 135/71 64 23:07 170 06/14/2023 10:54 157/76 60 10:38 161 06/13/2023 12:10 156/79 69 11:09 125 06/12/2023 09:45 138/70 65 - 06/12/2023 09:00 152/101 66 08:40 126 06/11/2023 09:24 144/67 58 08:23 121 06/10/2023 13:56 132/59 81 10:54 165 06/09/2023 16:10 115/73 65 14:12 132 06/08/2023 09:03 136/74 58 07:45 109 06/07/2023 09:16 149/92 54 09:15 173 06/06/2023 08:19 99/72 67 08:00 109 06/05/2023 08:07 106/59 56 07:15 100 06/05/2023 03:54 162/79 58 03:45 92 06/04/2023 10:41 130/69 53 08:46 117 06/02/2023 14:38 156/75 70 09:36 118 06/01/2023 07:30 133/65 50 07:15 130 05/31/2023 09:49 140/64 57 08:00 117 05/30/2023 09:45 152/68 50 09:34 165 05/29/2023 16:13 148/76 75 13:12 117 05/28/2023 09:59 124/72 44 09:43 162 05/27/2023 11:08 135/58 65 11:06 200 05/26/2023 11:54 107/57 69 11:45 204 05/25/2023 07:24 144/78 65 06:22 117 05/24/2023 09:44 126/65 52 - 05/24/2023 09:39 162/60 58 09:15 180 09:34 4 05/23/2023 12:52 139/50 60 - 05/23/2023 07:24 120/61 101 07:10 112 Source: [employer], [employer]; [employer] HT Alert: Elevated BP Assessment: Spoke to [place], identified by full name/. states I knew you would be calling because my BP is up states I am feeling fine . 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 I don't want to be rude so I drink it. Deneis any changes in condition, has not missed medications. states I will plan to recheck my BP later tonight and I am sure it will be better Reviewed importance of limiting caffeine and the effects of too much coffe has on BP and overall health. Suggested swith coffee to decaf or water when ever possible. Reviewed importance of following low sodium diet. IMportance of avoiding prepackaged, processed, canned or restaurant/takep out when ever possible due to the typical high sodium content. Vetean states I try to follow low salt but it is difficult at times ENcouraged to complete 15 minutes of daily gentle exercise to assist with lowering BP and promote overall good health. Intervention(s)/Plan: Teach s/s of HTN, stroke, heart attack and when to call 911 vs pact Encouraged to decrease caffeine intake and to drink more water to remain well hydrated Encouraged to follow low sodium diet. CHoose helathy meals/snacks Encouraged to complete daily exercise to recheck vitals later today and transmit for review TYPE OF ENCOUNTER: Telephone Length of call: 11-20 minutes /skinny/ TOÑO LORD RN [facility]-Home Telehealth [employer] Signed: 06/21/2023 16:01 Receipt Acknowledged By: 06/24/2023 06:57 /skinny/ Luis Aggarwal DNP, DRY ICE MAKER-BC, CNL Primary Care Nurse Practitioner TOÑO LORD [facility]
--- OUTSIDE RECORDS SUMMARY | 2024-05-29 10:26 | XMS_ITS | Encounter Summary ---
Author Name [facility] [place] Address [address] [place] [address] Care Team Providers Care Bank Vault Clerk Name Role Phone STACEY HORTON Primary Care [...] STAND YON SELF May 29, 2001 104 [id number] Abdullahi SEVERINO PATIENT MEDICARE (WNR) MEDICARE (M) PART B Jul 18, 2012 PART B [id number] [phone] Abdullahi SEVERINO PATIENT MEDICARE (WNR) MEDICARE (M) PART B Jul 18, 2012 PART B [id number] 96A Abdullahi SEVERINO PATIENT MEDICARE (WNR) MEDICARE (M) PART B Jul 18, 2012 PART B [id number] 96A Abdullahi SEVERINO PATIENT MEDICARE (WNR) MEDICARE (M) PART A Dec 19, 2011 PART A [id number] Abdullahi SEVERINO PATIENT MEDICARE (WNR) MEDICARE (M) PART A Dec 19, 2011 PART A [id number] [phone] Abdullahi SEVERINO PATIENT MEDICARE (WNR) MEDICARE (M) PART A Dec 19, 2011 PART A [id number] Abdullahi SEVERINO PATIENT Selected Encounter This section includes the information on [place] at [place] for the Encounter. Date/Time Encounter Type Encounter Description Reason Provider Source Jun 14, 2023 09:09 AM Outpatient Encounter HT NON-VIDEO MONITORING ICD-10-CM E11.9 Type 2 diabetes mellitus without complications KRISTIE LORD [facility] Encounter Template Text not used by [place] Assessments - Encounter Diagnoses This section includes the primary and secondary diagnoses documented for the Encounter. Date/Time Primary/Secondary Diagnosis Diagnosis Name Provider Source Jun 14, 2023 10:17 AM PRIMARY Type 2 diabetes mellitus without complications RISAKRISTIE BRIDGES [facility] [place] [facility] Jun 14, 2023 10:17 AM SECONDARY Essential (primary) hypertension RISA,BRE [facility] [place] [facility] Plan of Treatment: Future Appointments (+ 6 [...] 07, 2023 10:00 AM AMBULATORY - MEDICINE [facility] Sep 04, 2023 10:00 AM AMBULATORY - MEDICINE [place] [facility] Sep 04, 2023 11:00 AM AMBULATORY - MEDICINE [place] [facility] Sep 05, 2023 09:00 AM AMBULATORY - MEDICINE [place] [facility] Sep 09, 2023 02:00 PM AMBULATORY - NONE [place] [place] [facility] September 23, 2023 11:30 AM AMBULATORY - MEDICINE [facility] October 04, 2023 11:00 AM [facility] Nov 20, 2023 10:00 AM AMBULATORY - MEDICINE [facility] Dec 05, 2023 10:30 AM [facility] Active, Pending, and Scheduled Orders This section [...] Chemistry Order HEMOGLOBIN A1C PANEL BLOOD (LAV-BLOOD) [facility] May 05, 2023 12:00 AM Laboratory - Chemistry Order BASIC METABOLIC PANEL (non-fasting) BLOOD (SST-SERUM) [facility] Social History: Smoking Status (Most current) and [...] took place. Date/Time Current Smoking Status Comment [facility] Apr 05, 2023 11:30 AM VA-TOBACCO FORMER USER [facility] Tobacco Use History This section includes a history of the smoking, or tobacco-related health factors, that were collected on or before the date of the Encounter. The data comes from the [place] facility where the Encounter took place. Date/Time Smoking Status/Tobac co Use Comment Facility Apr 05, 2023 11:30 AM VA-TOBACCO QUIT 15 YRS OR MORE [facility] Dec 28, 2021 09:30 AM VA-[facility]BACCO [facility] Dec 28, 2021 09:30 AM VA-TOBACCO QUIT 15 YRS OR MORE [facility] Dec 02, 2020 09:00 AM VA-TOBACCO FORMER USER [place] [place] [facility] Dec 02, 2020 09:00 AM VA-TOBACCO QUIT 15 YRS OR MORE [place] [facility] [place] [facility] Aug 18, 2019 03:19 PM VA-TOBACCO FORMER USER [place] [facility] [place] [facility] Aug 18, 2019 03:19 PM VA-TOBACCO QUIT 15 YRS OR MORE [place] [facility] [place] [facility] September 23, 2018 09:58 AM VA-TOBACCO FORMER USER [place] [facility] [place] [facility] September 23, 2018 09:58 AM VA-TOBACCO QUIT 15 YRS OR MORE [place] [facility] [place] [facility] September 30, 2017 09:20 AM QUIT TOBACCO USE > 7 YEARS AGO [place] [facility] [place] [facility] Aug 20, 2016 09:17 AM QUIT TOBACCO USE > 7 YEARS AGO [facility] [place] [facility] Jun 27, 2016 09:45 AM CURRENT SMOKER Quit 25 years ago [place] [facility] [place] [facility] Apr 18, 2015 09:06 AM QUIT TOBACCO USE > 7 YEARS AGO quit in 1991 [place] [place] [facility] Mar 21, 2005 10:12 AM HISTORY OF SMOKING [place] [facility] [place] [facility] Mar 21, 2005 10:12 AM QUIT TOBACCO USE > 7 YEARS AGO [place] [facility] [place] [facility] Advance Directives: All historical and current Section [...] Feb 04, 2019 ADVANCE DIRECTIVE CESAR LUA [place] [facility] Encounter Notes: All associated encounter notes This section contains the clinical notes associated to the Encounter. Date/Time Encounter Note(s) Provider Source Jun 14, 2023 10:15 AM CARE COORDINATION HOME TELEHEALTH SUMMARIZATION NOTE: LOCAL TITLE: HT MONTHLY MONITOR NOTE STANDARD TITLE: CARE COORDINATION HOME TELEHEALTH SUMMARIZATION DATE OF NOTE: JUN 14, 2023@10:15 ENTRY DATE: JUN 14, 2023@10:15:21 AUTHOR: TOÑO LORD EXP COSIGNER: URGENCY: STATUS: COMPLETED The Hector is enrolled in the Home Telehealth (HT) program and continues to be monitored via HT technology. The data sent by the Hector is reviewed and analyzed by the HT staff, who provide ongoing case management and Hector health education while communicating and collaborating with the health care team as appropriate. This note covers a total of 30 minutes for the month monitored. Month monitored: May 2023 DX: DM/HTN /es/ TOÑO LORD RN RPM-Home Telehealth Geochemical Manager Signed: 06/14/2023 10:18 TOÑO LORD [place] CNTRL [facility]
--- OUTSIDE RECORDS SUMMARY | 2024-05-29 10:26 | XMS_ITS | Encounter Summary ---
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 Name Role Phone LUIS AGGARWAL Primary Care [...] STAND YON SELF May 29, [phone] [id number] Abdullahi SEVERINO PATIENT MEDICARE (WNR) MEDICARE (M) PART B Jul 18, 2012 PART B [id number] Abdullahi SEVERINO PATIENT MEDICARE (WNR) MEDICARE (M) PART B Jul 18, 2012 PART B [id number] Abdullahi SEVERINO PATIENT MEDICARE (WNR) MEDICARE (M) PART B Jul 18, 2012 PART B [id number] 96A Abdullahi SEVERINO PATIENT MEDICARE (WNR) MEDICARE (M) PART A Dec 19, 2011 PART A [id number] 96A Abdullahi SEVERINO PATIENT MEDICARE (WNR) MEDICARE (M) PART A Dec 19, 2011 PART A [id number] [phone] [id number] Abdullahi SEVERINO PATIENT MEDICARE (WNR) MEDICARE (M) PART A Dec 19, 2011 PART A [id number] [phone] [id number] Abdullahi SEVERINO PATIENT Selected Encounter This section includes the information on record at [place] for the Encounter. Date/Time Encounter Type Encounter Description Reason Pro vider Source Jun 28, 2023 02:30 PM Outpatient Encounter COMMUNITY CARE CONSULT IHE Encounter Template Text not used by [place] Plan of Treatment: Future Appointments (+ 6 months) and Future Tests (+/- 45 days) The Plan of Treatment section includes future care activities for the patient from all [place] treatmentfacilities. This section includes future appointments and future orders which are active, pending or scheduled. Future Appointments This section includes appointments that were scheduled to occur 6 months from the date of the Encounter, up to a maximum of 20 appointments. The data comes from all [place] treatment facilities. Appointment Date/Time Appointment Type Appointme nt Facility Name Aug 07, 2023 10:00 AM AMBULATORY - MEDICINE [facility] Sep 04, 2023 10:00 AM AMBULATORY - MEDICINE [place] [facility] Sep 04, 2023 11:00 AM AMBULATORY - MEDICINE [place] [facility] [place] [facility] Sep 05, 2023 09:00 AM AMBULATORY - MEDICINE [place] [facility] [place] [facility] Sep 09, 2023 02:00 PM AMBULATORY - NONE [place] [facility] [place] [facility] September 23, 2023 11:30 AM AMBULATORY - MEDICINE [place] [facility] [place] [facility] October 04, 2023 11:00 AM AMBULATORY - MEDICINE [place] [facility] [place] [place] [facility] Nov 20, 2023 10:00 AM AMBULATORY - MEDICINE [facility] Dec 05, 2023 10:30 AM AMBULATORY - MEDICINE [place] [facility] [place] [place] [facility] Dec 25, 2023 01:00 PM AMBULATORY - MEDICINE [facility] Dec 26, 2023 10:45 AM AMBULATORY - NONE [place] [facility] [place] [facility] Social History: Smoking Status (Most current) and Tobacco Use (All prior to encounter date) This section includes the most current, and the historical, smoking and tobacco- related health factors from the [place] facility where the Encounter took place. Current Smoking Status This section includes the most current smoking, or tobacco-related health factor, from the [place] facility where the Encounter took place. Date/Time Current Smoking Status Comment [facility] Apr 05, 2023 11:30 AM VA-TOBACCO FORMER USER [place] [facility] Tobacco Use History This section includes a history of the smoking, or tobacco-related health factors, that were collected on or before the date of the Encounter. The data comes from the [place] facility where the Encounter took place. Date/Time Smoking Status/Tobac co Use Comment Facility Apr 05, 2023 11:30 AM VA-TOBACCO QUIT 15 YRS OR MORE [place] [facility] [place] [facility] Dec 28, 2021 09:30 AM VA-TOBACCO FORMER USER [place] [facility] [place] [facility] Dec 28, 2021 09:30 AM VA-TOBACCO QUIT 15 YRS OR MORE [place] [facility] [place] [facility] Dec 02, 2020 09:00 AM VA-TOBACCO FORMER USER [place] [facility] [place] [facility] Dec 02, 2020 09:00 AM VA-TOBACCO QUIT 15 YRS OR MORE [place] [facility] [place] [facility] Aug 18, 2019 03:19 PM VA-TOBACCO FORMER USER [place] [facility] [place] [facility] Aug 18, 2019 03:19 PM VA-TOBACCO QUIT 15 YRS OR MORE [place] [facility] [place] [facility] September 23, 2018 09:58 AM VA-TOBACCO FORMER USER [place] [facility] [place] [facility] September 23, 2018 09:58 AM VA-TOBACCO QUIT 15 YRS OR MORE [place] [facility] [place] [facility] September 30, 2017 09:20 AM QUIT TOBACCO USE > 7 YEARS AGO [facility] [place] [facility] Aug 20, 2016 09:17 AM QUIT TOBACCO USE > 7 YEARS AGO quit 1992 [place] [facility] [place] [facility] Jun 27, 2016 09:45 AM CURRENT SMOKER Quit 25 years ago [place] [facility] [place] [facility] Apr 18, 2015 09:06 AM QUIT TOBACCO USE > 7 YEARS AGO quit in 1991 [facility] Mar 21, 2005 10:12 AM HISTORY OF SMOKING [facility] Mar 21, 2005 10:12 AM QUIT TOBACCO USE > 7 YEARS AGO [facility] Advance Directives: All historical and current Section Date Range: From patient's date of to the date document was created. This section includes ALL of a patient's completed or amended [place] Advance and Rescinded Directives. The entries below indicate that a directive exists for the patient, but an actual copy is not included with this document. The data comes from all [place] facilities. Date Advance Directives Provider Source Feb 04, 2019 ADVANCE DIRECTIVE CESAR LUA [facility] Encounter Notes: All associated encounter notes This section contains the clinical notes associated to the Encounter. Date/Time Encounter Note(s) Provider Source Jun 28, 2023 02:30 PM ADMINISTRATIVE NOTE: LOCAL TITLE: ADMINISTRATIVE NOTE STANDARD TITLE: ADMINISTRATIVE NOTE DATE OF NOTE: JUN 28, 2023@14:30 ENTRY DATE: JUN 28, 2023@14:30:53 AUTHOR: AUSTYN NAVARRETE EXP COSIGNER: URGENCY: STATUS: COMPLETED ADMINISTRATIVE NOTE Has ADDENDA Veterans orthopedic consult for [facility] expires 07/30/23. will be having right knee surgery 09/05/[address] Waller. Please enter continuation of care orthopedic consult for bilateral knee if appropriate. [facility] [address] [place] [address], [address] [place] [address] Appointment Group Authorization Medical Records /es/ AUSTYN NAVARRETE [employer]ED [employer] HUMAN RESOURCES ASSISTANT Signed: 06/28/2023 14:32 Receipt Acknowledged By: 07/01/2023 07:21 /es/ Luis Aggarwal DNP, TICKET COLLECTOR OR USHER-BC, CNL Primary Care Nurse Practitioner 06/28/2023 15:11 /es/ Radha Bustillo MSN RN CNL Primary Care RN 06/28/2023 ADDENDUM STATUS: COMPLETED Entered HFS by PCP /es/ Radha Bustillo MSN RN CNL Primary Care RN Signed: 06/28/2023 15:11 AUSTYN NAVARRETE [facility]
--- OUTSIDE RECORDS SUMMARY | 2024-05-29 10:27 | XMS_ITS | Encounter Summary ---
Author Name [facility] [place] Address [address] [place] [address] Care Team Providers Care Pharmaceutical Engineer Name Role Phone STACEY HORTON Primary [...] STAND YON SELF May 29, [phone] [id number] Abdullahi SEVERINO PATIENT MEDICARE (WNR) MEDICARE (M) PART B Jul 18, 2012 PART B [id number] Abdullahi SEVERINO PATIENT MEDICARE (WNR) MEDICARE (M) PART B Jul 18, 2012 PART B [id number] Abdullahi SEVERINO PATIENT MEDICARE (WNR) MEDICARE (M) PART B Jul 18, 2012 PART B [id number] Abdullahi SEVERINO PATIENT MEDICARE (WNR) MEDICARE (M) PART A Dec 19, 2011 PART A [id number] Abdullahi SEVERINO PATIENT MEDICARE (WNR) MEDICARE (M) PART A Dec 19, 2011 PART A [id number] [id number] Abdullahi SEVERINO PATIENT MEDICARE (WNR) MEDICARE (M) PART A Dec 19, 2011 PART A [id number] [id number] Abdullahi SEVERINO PATIENT Selected Encounter This section includes the information on record at [place] for the Encounter. Date/Time Encounter Type Encounter Description Reason Pro vider Source Jul 19, 2023 12:00 AM Outpatient Encounter EVENT (HISTORICAL) IHE Encounter Template Text not used by [place] Plan of Treatment: Future Appointments (+ 6 months) and Future Tests (+/- 45 days) The Plan of Treatment section includes future care activities for the patient from all [place] treatmentfacilities. This section includes future appointments and future orders which are active, pending or scheduled. Future Appointments This section includes appointments that were scheduled to occur 6 months from the date of the Encounter, up to a maximum of 20 appointments. The data comes from all [place] treatment facilities. Appointment Date/Time Appointment Type Appointme nt Facility Name Aug 07, 2023 10:00 AM [facility]BULATORY - MEDICINE [facility] Sep 04, 2023 10:00 AM AMBULATORY - MEDICINE [place] [facility] [place] [facility] Sep 04, 2023 11:00 AM AMBULATORY - MEDICINE [place] [facility] [facility] Sep 05, 2023 09:00 AM AMBULATORY - MEDICINE [place] [facility] [place] [facility] Sep 09, 2023 02:00 PM AMBULATORY - NONE [place] [facility] [place] [facility] September 23, 2023 11:30 AM AMBULATORY - MEDICINE [place] [facility] [facility] October 04, 2023 11:00 AM AMBULATORY - MEDICINE [place] [facility] [place] [facility] Nov 20, 2023 10:00 AM [facility]ULATORY - MEDICINE [facility] Dec 05, 2023 10:30 AM AMBULATORY - MEDICINE [place] [facility] [place] [facility] Dec 25, 2023 01:00 PM AMBULATORY - MEDICINE [facility] Dec 26, 2023 10:45 AM AMBULATORY - NONE [place] [facility] [facility] Dec 31, 2023 08:00 AM AMBULATORY - MEDICINE [place] [facility] Jan 17, 2024 08:00 AM AMBULATORY - MEDICINE [facility] Lab Results: +/- 30 days of the encounter This section includes the Chemistry and Hematology Lab Results on record with [place] for the patient. Radiology Reports and Pathology Reports are provided separately, in subsequent sections. Lab Results This section contains the Chemistry/Hematology Results that were resulted 30 days before or 30 daysafter the date of the Encounter. Date/Time Source Result Type Result - Unit Interpretation Reference Range Comment Aug 16, 2023 07:56 AM [facility] MICROALBUMIN CREATININE RATIO PANEL Specimen Type: URINE No comment entered. Ordering Provider: DEISY VELASCO Report Released Date/Time: May 29, 2023 12:04 PM Reporting Lab: [address] [address] Performing Lab: [address] [address] MICROALBUMIN/C REATININE RATIO 111.2 mg/g H 0-29.9 MICROALBUMIN,Q UANTITATIVE 9.3 mg/dL RR UNAVAIL CREATININE URINE 83.60 mg/dL Aug 16, 2023 07:56 AM [facility] HEMOGLOBIN A1C PANEL Specimen Type: BLOOD Comment: [...] May 29, 2023 12:04 PM Reporting Lab: [facility] [address] [facility] [address] Performing Lab: [address] [address] HEMOGLOBIN A1C 7.3 H 4.0-5.6 Aug 16, 2023 07:56 AM [facility] LIPID PANEL FASTING Specimen Type: SERUM No comment entered. Ordering Provider: DEISY VELASCO Report Released Date/Time: May 29, 2023 12:04 PM Reporting Lab: [facility] [address] [facility] [address] Performing Lab: [address] [address] CHOLESTEROL 122 mg/dL TRIGLYCERIDE 399 mg/dL H 0-150 LDL calculated Reflex to dLD L mg/dL 0-129 CHOL/HDL 3.9 HDL CHOLESTEROL 31 mg/dL L 40-60 LDL DIRECT 45 mg/dL Aug 16, 2023 07:56 AM [facility] BASIC METABOLIC PANEL (fasting) Specimen Type: SERUM No comment entered. Ordering Provider: DEISY VEALSCO Report Released Date/Time: May 29, 2023 12:04 PM Reporting Lab: [address] [address] Performing Lab: [address] [address] UREA NITROGEN 17 mg/dL 7-25 GLUCOSE 162 [...] and tobacco- related health factors from the [place] facility where the Encounter took place. Current Smoking Status This section includes the most current smoking, or tobacco-related health factor, from the [place] facility where the Encounter took place. Date/Time Current Smoking Status Comment [facility] clive Apr 05, 2023 11:30 AM [place]-TOBACCO FORMER USER [facility] Tobacco Use History This section includes a history of the smoking, or tobacco-related health factors, that were collected on or before the date of the Encounter. The data comes from the [place] facility where the Encounter took place. Date/Time Smoking Status/Tobac co Use Comment Facility Apr 05, 2023 11:30 AM [place]-TOBACCO QUIT 15 YRS OR MORE [place] [facility] [facility] Dec 28, 2021 09:30 AM VA-TOBACCO FORMER USER [facility] [place] [facility] Dec 28, 2021 09:30 AM VA-TOBACCO QUIT 15 YRS OR MORE [place] [facility] [facility] Dec 02, 2020 09:00 AM VA-TOBACCO FORMER USER [place] [facility] [place] [facility] Dec 02, 2020 09:00 AM VA-TOBACCO QUIT 15 YRS OR MORE [place] [facility] [place] [facility] Aug 18, 2019 03:19 PM VA-TOBACCO FORMER USER [place] [facility] [place] [facility] Aug 18, 2019 03:19 PM VA-TOBACCO QUIT 15 YRS OR MORE [place] [facility] [place] [facility] September 23, 2018 09:58 AM VA-TOBACCO FORMER USER [place] [facility] [facility] September 23, 2018 09:58 AM VA-TOBACCO QUIT 15 YRS OR MORE [facility] [place] [facility] September 30, 2017 09:20 AM QUIT TOBACCO USE > 7 YEARS AGO [facility] [place] [facility] Aug 20, 2016 09:17 AM QUIT TOBACCO USE > 7 YEARS AGO quit 1991 [place] [facility] [facility] Jun 27, 2016 09:45 AM CURRENT SMOKER Quit 25 years ago [facility] [place] [facility] Apr 18, 2015 09:06 AM QUIT TOBACCO USE > 7 YEARS AGO quit in 1991 [place] [facility] [place] [facility] Mar 21, 2005 10:12 AM HISTORY OF SMOKING [place] [facility] [place] [facility] Mar 21, 2005 10:12 AM QUIT TOBACCO USE > 7 YEARS AGO [place] [facility] [place] [facility] Advance Directives: All historical and current Section Date Range: From patient's date of to the date document was created. This section includes ALL of a patient's completed or amended [place] Advance and Rescinded Directives. The entries below indicate that a directive exists for the patient, but an actual copy is not included with this document. The data comes from all [place] facilities. Date Advance Directives Provider Source Feb 04, 2019 ADVANCE DIRECTIVE CESAR LUA [place] [facility] Encounter Notes: All associated encounter notes This section contains the clinical notes associated to the Encounter. Date/Time Encounter Note(s) Provider Source Jul 19, 2023 12:00 AM NONVA NOTE: LOCAL TITLE: NON-VA OUTPATIENT NOTES STANDARD TITLE: NONVA NOTE DATE OF NOTE: JUL 19, 2023 ENTRY DATE: JUL 29, 2023@08:55:31 AUTHOR: АНДРЕЙ KIDD EXP COSIGNER: URGENCY: STATUS: COMPLETED VistA Imaging - Scanned Document SCANNED DOCUMENT SIGNATURE NOT REQUIRED Electronically Filed: 07/29/2023 by: АНДРЕЙ KIDD TREASURER [employer] АНДРЕЙ KIDD [facility]
--- OUTSIDE RECORDS SUMMARY | 2024-05-29 10:27 | XMS_ITS | Encounter Summary ---
Author Name [facility] [place] Organization [place] Address [address] [place] [address] Care Team Providers Care Angiography Nurse Name Role Phone STACEY HORTON [facility] Providers: All historical and current [...] STAND YON SELF May 29, [phone] [id number] Abdullahi SEVERINO PATIENT MEDICARE (WNR) MEDICARE (M) PART B Jul 18, 2012 PART B [id number] [phone] Abdullahi SEVERINO PATIENT MEDICARE (WNR) MEDICARE (M) PART B Jul 18, 2012 PART B [id number] Abdullahi SEVERINO PATIENT MEDICARE (WNR) MEDICARE (M) PART B Jul 18, 2012 PART B [id number] Abdullahi SEVERINO PATIENT MEDICARE (WNR) MEDICARE (M) PART A Dec 19, 2011 PART A [id number] Abdullahi SEVERINO PATIENT MEDICARE (WNR) MEDICARE (M) PART A Dec 19, 2011 PART A [id number] Abdullahi SEVERINO PATIENT MEDICARE (WNR) MEDICARE (M) PART A Dec 19, 2011 PART A [id number] Abdullahi SEVERINO PATIENT Selected Encounter This section includes the information on record at [place] for the Encounter. Date/Time Encounter Type Encounter Description Reason Provider Source Aug 07, 2023 12:53 PM Outpatient Encounter TELEPHONE/MEDICI NE ICD-10-CM E11.9 Type 2 diabetes mellitus without complications DEISY VELASCO Afshin Encounter Template Text not used by [place] Assessments - Encounter Diagnoses This section includes the primary and secondary diagnoses documented for the Encounter. Date/Time Primary/Secondary Diagnosis Diagnosis Name Provider Source Aug 07, 2023 12:53 PM PRIMARY Type 2 diabetes mellitus without complications DE[facility]Y [facility]ASCO [facility] Plan of Treatment: Future Appointments (+ [...] Date/Time Appointment Type Appointme nt Facility Name Sep 04, 2023 10:00 AM AMBULATORY - MEDICINE [place] [facility] [place] [facility] Sep 04, 2023 11:00 AM AMBULATORY - MEDICINE [place] [facility] [place] [facility] Sep 05, 2023 09:00 AM AMBULATORY - MEDICINE [place] [facility] [place] [facility] Sep 09, 2023 02:00 PM AMBULATORY - NONE [place] [facility] [place] [facility] September 23, 2023 11:30 AM AMBULATORY - MEDICINE [place] [facility] [place] [facility] October 04, 2023 11:00 AM AMBULATORY - MEDICINE [place] [facility] [place] [facility] Nov 20, 2023 10:00 AM AMBULATORY - MEDICINE [facility] Dec 05, 2023 10:30 AM AMBULATORY - MEDICINE [place] [facility] [place] [facility] Dec 25, 2023 01:00 PM AMBULATORY - MEDICINE [facility] Dec 26, 2023 10:45 AM AMBULATORY - NONE [facility] [place] [facility] Dec 31, 2023 08:00 AM AMBULATORY - MEDICINE [place] [facility] [place] [facility] Jan 17, 2024 08:00 AM [facility] Lab Results: +/- 30 days of the encounter This section includes the Chemistry and Hematology Lab Results on record with [place] for the patient. Radiology Reports and Pathology Reports are provided separately, in subsequent sections. Lab Results This section contains the Chemistry/Hematology Results that were resulted 30 days before or 30 daysafter the date of the Encounter. Date/Time Source Result Type Result - Unit Interpretation Reference Range Comment Aug 16, 2023 07:56 AM [facility] MICROALBUMIN CREATININE RATIO PANEL Specimen Type: URINE No comment entered. Ordering Provider: DEISY VELASCO Report Released Date/Time: May 29, 2023 12:04 PM Reporting Lab: [facility] [address] [facility] [address] Performing Lab: [facility] [address] [address] MICROALBUMIN/C REATININE RATIO 111.2 mg/g H 0-29.9 MICROALBUMIN,Q UANTITATIVE 9.3 mg/dL RR UNAVAIL CREATININE URINE 83.60 mg/dL Aug 16, 2023 07:56 AM [facility] HEMOGLOBIN A1C PANEL Specimen Type: BLOOD [...] May 29, 2023 12:04 PM Reporting Lab: [address] [address] Performing Lab: [facility] [address] [facility] [address] HEMOGLOBIN A1C 7.3 H 4.0-5.6 Aug 16, 2023 07:56 AM [facility] LIPID PANEL FASTING Specimen Type: SERUM No comment entered. Ordering Provider: DEISY VELASCO Report Released Date/Time: May 29, 2023 12:04 PM Reporting Lab: [address] [address] Performing Lab: [address] [address] CHOLESTEROL 122 mg/dL TRIGLYCERIDE 399 mg/dL H 0-150 LDL calculated Reflex to dLD L mg/dL 0-129 CHOL/HDL 3.9 HDL CHOLESTEROL 31 mg/dL L 40-60 LDL DIRECT 45 mg/dL Aug 16, 2023 07:56 AM [facility] BASIC METABOLIC PANEL (fasting) Specimen Type: SERUM No comment entered. Ordering Provider: DEISY VELASCO Report Released Date/Time: May 29, 2023 12:04 PM Reporting Lab: [address] [address] Performing Lab: [address] [address] UREA NITROGEN 17 mg/dL 7-25 GLUCOSE 162 [...] place. Date/Time Current Smoking Status Comment Therese bernstein Apr 05, 2023 11:30 AM VA-TOBACCO FORMER USER [facility] Tobacco Use History This section includes a history of the smoking, or tobacco-related health factors, that were collected on or before the date of the Encounter. The data comes from the [place] facility where the Encounter took place. Date/Time Smoking Status/Tobac co Use Comment Facility Apr 05, 2023 11:30 AM VA-TOBACCO QUIT 15 YRS OR MORE [place] [facility] [facility] Dec 28, 2021 09:30 AM VA-TOBACCO FORMER USER [place] [facility] [place] [facility] Dec 28, 2021 09:30 AM VA-TOBACCO QUIT 15 YRS OR MORE [place] [facility] [place] [facility] Dec 02, 2020 09:00 AM VA-TOBACCO FORMER USER [place] [facility] [facility] Dec 02, 2020 09:00 AM VA-TOBACCO QUIT 15 YRS OR MORE [place] [facility] [place] [facility] Aug 18, 2019 03:19 PM VA-TOBACCO FORMER USER [place] [facility] [facility] Aug 18, 2019 03:19 PM VA-TOBACCO QUIT 15 YRS OR MORE [place] [facility] [place] [facility] September 23, 2018 09:58 AM VA-TOBACCO FORMER USER [place] [facility] [place] [facility] September 23, 2018 09:58 AM VA-TOBACCO QUIT 15 YRS OR MORE [facility] [facility] September 30, 2017 09:20 AM QUIT TOBACCO USE > 7 YEARS AGO [place] [facility] [facility] Aug 20, 2016 09:17 AM QUIT TOBACCO USE > 7 YEARS AGO quit 1991 [place] [facility] [facility] Jun 27, 2016 09:45 AM CURRENT SMOKER Quit 25 years ago [place] [facility] [facility] Apr 18, 2015 09:06 AM QUIT TOBACCO USE > 7 YEARS AGO quit in 1991 [place] [facility] [place] [facility] Mar 21, 2005 10:12 AM HISTORY OF SMOKING [place] [facility] [place] [facility] Mar 21, 2005 10:12 AM QUIT TOBACCO USE > 7 YEARS AGO [place] [facility] [facility] Advance Directives: All historical and current Section Date Range: From patient's date of to the date document was created. This section includes ALL of a patient's completed or amended [place] Advance and Rescinded Directives. The entries below indicate that a directive exists for the patient, but an actual copy is not included with this document. The data comes from all [place] facilities. Date Advance Directives Provider Source Feb 04, 2019 ADVANCE DIRECTIVE CESAR LUA [place] [facility] Encounter Notes: All associated encounter notes This section contains the clinical notes associated to the Encounter. Date/Time Encounter Note(s) Provider Source Aug 07, 2023 12:53 PM PHYSICIAN NOTE: LOCAL TITLE: MD NOTE STANDARD TITLE: PHYSICIAN NOTE DATE OF NOTE: AUG 07, 2023@12:53 ENTRY DATE: AUG 07, 2023@12:53:40 AUTHOR: DEISY VELASCO COSIGNER: URGENCY: STATUS: COMPLETED DM 2 Spoke with patient. No hx pancreatitis. No gallstones. Reviewed 06/04/2023 non [facility] eye exam[facility] no DR. No fhx thyroid cancer. TG are over 700. This places him at increased risk for pancreatitis. So, unfortunately, he is not currently a candidate for GLP1. Discussed that with moderate weight loss, and keeping his TG < 500, we could then revisit initiation of GLP1. 5 min telephone encounter. /skinny/ DEISY VELASCO MD STAFF PHYSICIAN Signed: 08/07/2023 12:58 Receipt Acknowledged By: 08/07/2023 16:33 /skinny/ MAURO VANCE, RN,BSN, [facility] DIABETES PUMPER GAGER APPRENTICE, RN DEISY VELASCO [facility]
--- OUTSIDE RECORDS SUMMARY | 2024-05-29 10:27 | XMS_ITS | Encounter Summary ---
Author Name [facility] [place] [facility] [place] [facility] [place] Address [address] [place] [address] Care Team Providers Care Clinical Laboratory Technologist Name Role Phone STACEY HORTON Primary Care [...] STAND YON SELF May 29, [phone] [id number] Abdullahi SEVERINO PATIENT MEDICARE (WNR) MEDICARE (M) PART B Jul 18, 2012 PART B [id number] [phone] Abdullahi SEVERINO PATIENT MEDICARE (WNR) MEDICARE (M) PART B Jul 18, 2012 PART B [id number] Abdullahi SEVERINO PATIENT MEDICARE (WNR) MEDICARE (M) PART B Jul 18, 2012 PART B [id number] Abdullahi SEVERINO PATIENT MEDICARE (WNR) MEDICARE (M) PART A Dec 19, 2011 PART A [id number] Abdullahi SEVERINO PATIENT MEDICARE (WNR) MEDICARE (M) PART A Dec 19, 2011 PART A [id number] Abdullahi SEVERINO PATIENT MEDICARE (WNR) MEDICARE (M) PART A Dec 19, 2011 PART A [id number] Abdullahi SEVERINO PATIENT Selected Encounter This section includes the information on record at [place] for the Encounter. Date/Time Encounter Type Encounter Description Reason Pro vider Source Aug 17, 2023 09:56 AM Outpatient Encounter ENDOCRINOLOGY DEISY VELASCO Encounter Template Text not used by [place] Plan of Treatment: Future Appointments (+ 6 months) and Future Tests (+/- 45 days) The Plan of Treatment section includes future care activities for the patient from all [place] treatmentfacilities. This section includes future appointments and future orders which are active, pending or scheduled. Future Appointments This section includes appointments that were scheduled to occur 6 months from the date of the Encounter, up to a maximum of 20 appointments. The data comes from all [place] treatment facilities. Appointment Date/Time Appointment Type Appointme nt Facility Name Sep 04, 2023 10:00 AM [place] [facility] [place] [facility] Sep 04, 2023 11:00 AM [place]ATORY [place] [facility] [place] [facility] Sep 05, 2023 09:00 AM AM[place]ULATORY [place]ICINE [place] [facility] [place] [facility] Sep 09, 2023 02:00 PM AMBULATORY - NONE [place] [facility] [place] [facility] September 23, 2023 11:30 AM AM[place]ULATORY [place]ICINE [place] [facility] [place] [facility] October 04, 2023 11:00 AM AM[place]ULATORY [place]ICINE [place] [facility] [place] [facility] Nov 20, 2023 10:00 AM [facility]ORY [facility]ICINE [facility] Dec 05, 2023 10:30 AM [place]ULATORY [place]INE [place] [facility] [place] [facility] Dec 25, 2023 01:00 PM AMBULATORY - MEDICINE [facility] [place] Dec 26, 2023 10:45 AM AMBULATORY - NONE [place] [facility] [place] [facility] Dec 31, 2023 08:00 AM AM[place]ULATORY [place]IC[place] [facility] [place] [facility] Jan 17, 2024 08:00 AM [facility] [place] [facility] Feb 17, 2024 11:00 AM [facility] [place] [facility] Lab Results: +/- 30 days of the encounter This section includes the Chemistry and Hematology Lab Results on record with [place] for the patient. Radiology Reports and Pathology Reports are provided separately, in subsequent sections. Lab Results This section contains the Chemistry/Hematology Results that were resulted 30 days before or 30 daysafter the date of the Encounter. Date/Time Source Result Type Result - Unit Interpretation Reference Range Comment Aug 16, 2023 07:56 AM [facility] MICROALBUMIN CREATININE RATIO PANEL Specimen Type: URINE No comment entered. Ordering Provider: DEISY VELASCO Report Released Date/Time: May 29, 2023 12:04 PM Reporting Lab: [address] [address] Performing Lab: [address] [address] MICROALBUMIN/C REATININE RATIO 111.2 mg/g H 0-29.9 MICROALBUMIN,Q UANTITATIVE 9.3 mg/dL RR UNAVAIL CREATININE URINE 83.60 mg/dL Aug 16, 2023 07:56 AM [facility] HEMOGLOBIN A1C PANEL Specimen Type: BLOOD Comment: [...] May 29, 2023 12:04 PM Reporting Lab: [address] [address] Performing Lab: [address] [address] HEMOGLOBIN A1C 7.3 H 4.0-5.6 Aug 16, 2023 07:56 AM [facility] LIPID PANEL FASTING Specimen Type: SERUM No comment entered. Ordering Provider: DEISY VELASCO Report Released Date/Time: May 29, 2023 12:04 PM Reporting Lab: [facility] [address] [facility] [address] Performing Lab: [address] [address] CHOLESTEROL 122 mg/dL TRIGLYCERIDE 399 mg/dL H 0-150 LDL calculated Reflex to dLD L mg/dL 0-129 CHOL/HDL 3.9 HDL CHOLESTEROL 31 mg/dL L 40-60 LDL DIRECT 45 mg/dL Aug 16, 2023 07:56 AM [facility] BASIC METABOLIC PANEL (fasting) Specimen Type: SERUM No comment entered. Ordering Provider: DEISY VELASCO Report Released Date/Time: May 29, 2023 12:04 PM Reporting Lab: [address] [address] Performing Lab: [address] [address] UREA NITROGEN 17 mg/dL 7-25 GLUCOSE 162 [...] and tobacco- related health factors from the [place] facility where the Encounter took place. Current Smoking Status This section includes the most current smoking, or tobacco-related health factor, from the [place] facility where the Encounter took place. Date/Time Current Smoking Status Comment Therese bernstein Apr 05, 2023 11:30 AM VA-TOBACCO FORMER USER [facility] Tobacco Use History This section includes a history of the smoking, or tobacco-related health factors, that were collected on or before the date of the Encounter. The data comes from the [place] facility where the Encounter took place. Date/Time Smoking Status/Tobac co Use Comment Facility Apr 05, 2023 11:30 AM VA-TOBACCO QUIT 15 YRS OR MORE [place] [facility] [place] [facility] Dec 28, 2021 09:30 AM VA-TOBACCO FORMER USER [place] [facility] [place] [facility] Dec 28, 2021 09:30 AM VA-TOBACCO QUIT 15 YRS OR MORE [place] [facility] [place] [facility] Dec 02, 2020 09:00 AM VA-TOBACCO FORMER USER [place] [facility] [place] [facility] Dec 02, 2020 09:00 AM VA-TOBACCO QUIT 15 YRS OR MORE [place] [facility] [place] [facility] Aug 18, 2019 03:19 PM VA-TOBACCO FORMER USER [place] [facility] [place] [facility] Aug 18, 2019 03:19 PM VA-TOBACCO QUIT 15 YRS OR MORE [place] [facility] [place] [facility] September 23, 2018 09:58 AM VA-TOBACCO FORMER USER [place] [facility] [place] [facility] September 23, 2018 09:58 AM VA-TOBACCO QUIT 15 YRS OR MORE [place] [facility] [place] [facility] September 30, 2017 09:20 AM QUIT TOBACCO USE > 7 YEARS AGO [place] [facility] [place] [facility] Aug 20, 2016 09:17 AM QUIT TOBACCO USE > 7 YEARS AGO quit 1991 [place] [facility] [place] [facility] Jun 27, 2016 09:45 AM CURRENT SMOKER Quit 25 years ago [place] [facility] [place] [facility] Apr 18, 2015 09:06 AM QUIT TOBACCO USE > 7 YEARS AGO quit in 1991 [place] [facility] [place] [facility] Mar 21, 2005 10:12 AM HISTORY OF SMOKING [place] [facility] [place] [facility] Mar 21, 2005 10:12 AM QUIT TOBACCO USE > 7 YEARS AGO [place] [facility] [place] [facility] Advance Directives: All historical and current Section Date Range: From patient's date of to the date document was created. This section includes ALL of a patient's completed or amended [place] Advance and Rescinded Directives. The entries below indicate that a directive exists for the patient, but an actual copy is not included with this document. The data comes from all [place] facilities. Date Advance Directives Provider Source Feb 04, 2019 ADVANCE DIRECTIVE CESAR LUA [place] [facility] [place] [facility] Encounter Notes: All associated encounter notes This section contains the clinical notes associated to the Encounter. Date/Time Encounter Note(s) Provider Source Aug 17, 2023 09:56 AM ENDOCRINOLOGY SECU RE MESSAGING: LOCAL TITLE: ENDOCRINOLOGY SECURE MESSAGING STANDARD TITLE: ENDOCRINOLOGY SECURE MESSAGING DATE OF NOTE: AUG 17, 2023@09:56 ENTRY DATE: AUG 17, 2023@10:56:47 AUTHOR: DEISY VELASCO EXP COSIGNER: URGENCY: STATUS: COMPLETED ------Original Message ----- Sent: 08/17/2023 10:56 AM ET From: DEISY VELASCO To: CARL SEVERINO Subject: General:General Inquiry Good morning! Your kidney function blood test and chemistries are fine. Your cholesterol looks well controlled. Your triglycerides are high. Your urine test shows some protein in the urine. I look forward to discussing these results at our upcoming visit. Be well! HEMOGLOBIN A1C 7.3 /skinny/ DEISY VELASCO MD STAFF PHYSICIAN Signed: 08/17/2023 10:56 DE[facility]ELASCO [facility]
--- OUTSIDE RECORDS SUMMARY | 2024-05-29 10:27 | XMS_ITS ---
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 Name Role Phone STACEY AGGARWAL Primary Care Provider Unavail ble Insurance [...] STAND YON SELF May 29, 2001 104 [id number] [phone] Abdullahi SEVERINO PATIENT MEDICARE (WNR) MEDICARE (M) PART B Jul 18, 2012 PART B [id number] Abdullahi SEVERINO PATIENT MEDICARE (WNR) MEDICARE (M) PART B Jul 18, 2012 PART B [id number] Abdullahi SEVERINO PATIENT MEDICARE (WNR) MEDICARE (M) PART B Jul 18, 2012 PART B [id number] [phone] Abdullahi SEVERINO PATIENT MEDICARE (WNR) MEDICARE (M) PART A Dec 19, 2011 PART A [id number] [phone] Abdullahi SEVERINO PATIENT MEDICARE (WNR) MEDICARE (M) PART A Dec 19, 2011 PART A [id number] Abdullahi SEVERINO PATIENT MEDICARE (WNR) MEDICARE (M) PART A Dec 19, 2011 PART A [id number] [phone] Abdullahi SEVERINO PATIENT Selected Encounter This section includes the information on record at [place] for the Encounter. Date/Time Encounter Type Encounter Description Reason Pro vider Source Aug 05, 2023 01:15 PM Outpatient Encounter TELEPHONE PRIMARY CARE [facility] Encounter Template Text not used by [place] Plan of Treatment: Future Appointments (+ 6 months) and Future Tests (+/- 45 days) The Plan of Treatment section includes future care activities for the patient from all [place] treatmentfacilities. This section includes future appointments and future orders which are active, pending or scheduled. Future Appointments This section includes appointments that were scheduled to occur 6 months from the date of the Encounter, up to a maximum of 20 appointments. The data comes from all [place] treatment facilities. Appointment Date/Time Appointment Type Appointme nt Facility Name Aug 07, 2023 10:00 AM AMBULATORY - MEDICINE [facility] Sep 04, 2023 10:00 AM AMBULATORY - MEDICINE [place] [facility] [place] [facility] Sep 04, 2023 11:00 AM AMBULATORY - MEDICINE [place] [facility] [place] [facility] Sep 05, 2023 09:00 AM AMBULATORY - MEDICINE IN [facility] [place] [facility] Sep 09, 2023 02:00 PM AMBULATORY - NONE [place] [facility] [place] [facility] September 23, 2023 11:30 AM AMBULATORY - MEDICINE [place] [facility] [place] [facility] October 04, 2023 11:00 AM AMBULATORY - MEDICINE [place] [facility] [place] [facility] Nov 20, 2023 10:00 AM AMBULATORY - MEDICINE [facility] Dec 05, 2023 10:30 AM AMBULATORY - MEDICINE [place] [facility] [place] [facility] Dec 25, 2023 01:00 PM AMBULATORY - MEDICINE [facility] Dec 26, 2023 10:45 AM AMBULATORY - NONE [place] [facility] [place] [facility] Dec 31, 2023 08:00 AM AMBULATORY - MEDICINE [facility] Jan 17, 2024 08:00 AM AMBULATORY - MEDICINE [facility] Lab Results: +/- 30 days of the encounter This section includes the Chemistry and Hematology Lab Results on record with [place] for the patient. Radiology Reports and Pathology Reports are provided separately, in subsequent sections. Lab Results This section contains the Chemistry/Hematology Results that were resulted 30 days before or 30 daysafter the date of the Encounter. Date/Time Source Result Type Result - Unit Interpretation Reference Range Comment Aug 16, 2023 07:56 AM [facility] MICROALBUMIN CREATININE RATIO PANEL Specimen Type: URINE No comment entered. Ordering Provider: DEISY VELASCO Report Released Date/Time: May 29, 2023 12:04 PM Reporting Lab: [address] [address] Performing Lab: [address] [address] MICROALBUMIN/C REATININE RATIO 111.2 mg/g H 0-29.9 MICROALBUMIN,Q UANTITATIVE 9.3 mg/dL RR UNAVAIL CREATININE URINE 83.60 mg/dL Aug 16, 2023 07:56 AM [facility] LIPID PANEL FASTING Specimen Type: SERUM No comment entered. Ordering Provider: DEISY VELASCO Report Released Date/Time: May 29, 2023 12:04 PM Reporting Lab: [address] [address] Performing Lab: [address] [address] CHOLESTEROL 122 mg/dL TRIGLYCERIDE 399 mg/dL H 0-150 LDL calculated Reflex to dLD L mg/dL 0-129 CHOL/HDL 3.9 HDL CHOLESTEROL 31 mg/dL L 40-60 LDL DIRECT 45 mg/dL Aug 16, 2023 07:56 AM [facility] HEMOGLOBIN A1C PANEL Specimen Type: BLOOD [...] May 29, 2023 12:04 PM Reporting Lab: [facility] [address] [facility] [address] Performing Lab: [address] [address] HEMOGLOBIN A1C 7.3 H 4.0-5.6 Aug 16, 2023 07:56 AM [facility] BASIC METABOLIC PANEL (fasting) Specimen Type: SERUM No comment entered. Ordering Provider: DEISY VELASCO Report Released Date/Time: May 29, 2023 12:04 PM Reporting Lab: [address] [address] Performing Lab: [address] [address] UREA NITROGEN 17 mg/dL 7-25 GLUCOSE 162 [...] and tobacco- related health factors from the [place] facility where the Encounter took place. Current Smoking Status This section includes the most current smoking, or tobacco-related health factor, from the [place] facility where the Encounter took place. Date/Time Current Smoking Status Comment Therese duffy Apr 05, 2023 11:30 AM VA-TOBACCO FORMER USER [facility] Tobacco Use History This section includes a history of the smoking, or tobacco-related health factors, that were collected on or before the date of the Encounter. The data comes from the [place] facility where the Encounter took place. Date/Time Smoking Status/Tobac co Use Comment Facility Apr 05, 2023 11:30 AM VA-TOBACCO QUIT 15 YRS OR MORE [place] [facility] [place] [facility] Dec 28, 2021 09:30 AM VA-TOBACCO FORMER USER [place] [facility] [place] [facility] Dec 28, 2021 09:30 AM VA-TOBACCO QUIT 15 YRS OR MORE [place] [facility] [place] [facility] Dec 02, 2020 09:00 AM VA-TOBACCO FORMER USER [place] [facility] [place] [facility] Dec 02, 2020 09:00 AM VA-TOBACCO QUIT 15 YRS OR MORE IN [facility] [place] [facility] Aug 18, 2019 03:19 PM VA-TOBACCO FORMER USER [place] [facility] [place] [facility] Aug 18, 2019 03:19 PM VA-TOBACCO QUIT 15 YRS OR MORE IN [facility] [place] [facility] September 23, 2018 09:58 AM VA-TOBACCO FORMER USER IN [facility] [place] [facility] September 23, 2018 09:58 AM VA-TOBACCO QUIT 15 YRS OR MORE IN [facility] [place] [facility] September 30, 2017 09:20 AM QUIT TOBACCO USE > 7 YEARS AGO IN [facility] [place] [facility] Aug 20, 2016 09:17 AM QUIT TOBACCO USE > 7 YEARS AGO quit 1991 [place] [facility] [place] [facility] Jun 27, 2016 09:45 AM CURRENT SMOKER Quit 25 years ago IN [facility] [place] [facility] Apr 18, 2015 09:06 AM QUIT TOBACCO USE > 7 YEARS AGO quit in 1991 [place] [facility] [place] [facility] Mar 21, 2005 10:12 AM HISTORY OF SMOKING IN [facility] [place] [facility] Mar 21, 2005 10:12 AM QUIT TOBACCO USE > 7 YEARS AGO IN [facility] [place] [facility] Advance Directives: All historical and current Section Date Range: From patient's date of to the date document was created. This section includes ALL of a patient's completed or amended [place] Advance and Rescinded Directives. The entries below indicate that a directive exists for the patient, but an actual copy is not included with this document. The data comes from all [place] facilities. Date Advance Directives Provider Source Feb 04, 2019 ADVANCE DIRECTIVE CESAR LUA [place] [facility] [place] [facility] Encounter Notes: All associated encounter notes This section contains the clinical notes associated to the Encounter. Date/Time Encounter Note(s) Provider Source Aug 05, 2023 01:25 PM ADDENDUM: LOCAL TITLE: Addendum STANDARD TITLE: ADDENDUM DATE OF NOTE: AUG 05, 2023@13:25:44 ENTRY DATE: AUG 05, 2023@13:25:46 AUTHOR: STACEY AGGARWAL EXP COSIGNER: URGENCY: STATUS: COMPLETED please let Antoine, i suggest increasing metoprolol succ from 12.5mg daily to 25mg daily. I have placed new order. Suggest nurse visit in 3-4 weeks to check BP and HR. /es/ Stacey Aggarwal DNP, GASFITTER-BC, CNL Primary Care Nurse Practitioner Signed: 08/05/2023 13:28 Receipt Acknowledged By: 08/05/2023 13:34 /es/ Radha Bustillo MSN RN CNL Primary Care RN ========= --- Original Document --- 08/05/23 HT NOTE: Antoine is actively enrolled in the Home Telehealth program. Review of data shows the following out of range responses: PERCY LAWRENCE (-[id number]) Vital Sign for: 07/07/2023 - 08/05/2023 (All times are EST; All weights are lbs) Primary DMP: HTN Comorbid(s): DM Summary Sys BP Krishnamurthy BP HR Glu Pain High 182 116 [id number] Low 131 79 83 85 Average 158 93 92 268 Date Time Sys Krishnamurthy Time HR Time Glu Time Pain 08/05/2023 09:23 139/87 09:23 84 09:12 356 08/04/2023 07:54 170/96 07:54 94 07:33 177 08/03/2023 08:30 173/100 08:30 86 08:14 292 08/02/2023 - - 14:00 346 08/02/2023 09:42 182/103 09:42 87 09:14 283 08/01/2023 09:29 181/98 09:29 90 09:23 245 07/31/2023 - 09:12 91 - 07/30/2023 09:32 131/79 09:32 99 09:26 85 07/29/2023 - - 19:19 121 07/29/2023 09:34 171/116 09:34 87 07:40 256 07/28/2023 06:35 172/98 06:35 94 06:15 157 07/27/2023 08:07 174/92 08:07 90 07:59 299 07/26/2023 09:09 155/88 09:09 94 09:02 200 07/25/2023 09:19 154/92 09:19 97 08:58 336 07/24/2023 09:15 156/89 09:15 87 09:06 298 07/23/2023 09:54 158/92 09:54 97 09:09 285 07/22/2023 10:13 162/98 10:13 88 09:24 194 07/21/2023 - - 15:41 305 07/21/2023 07:41 157/95 07:41 86 07:18 267 07/20/2023 08:46 160/94 08:46 91 08:04 248 07/19/2023 09:17 167/94 09:17 92 07:49 326 07/18/2023 - - 09:01 259 07/18/2023 09:09 169/97 09:09 96 - 07/17/2023 08:59 136/86 08:59 84 08:44 142 07/16/2023 - - 22:11 391 07/16/2023 - - 09:40 304 07/16/2023 09:50 159/87 09:50 92 - 07/15/2023 09:20 155/95 09:20 83 09:12 298 07/14/2023 - - 15:08 251 07/14/2023 09:04 170/91 09:04 97 07:35 315 07/13/2023 - - 08:11 279 07/13/2023 - - 08:40 278 07/13/2023 08:35 159/93 08:35 88 - 07/12/2023 - - 08:30 362 07/12/2023 09:20 136/84 09:20 107 - 07/11/2023 09:48 149/89 09:48 98 - 07/10/2023 - - 20:01 341 07/10/2023 09:23 170/105 09:23 93 09:15 361 07/09/2023 09:08 144/90 09:08 95 09:01 294 07/08/2023 09:22 148/90 09:22 94 10:11 207 07/07/2023 08:35 137/82 08:35 101 07:39 208 Source: [employer]; [employer] Attempted call to to review elevated BP readings. 187/97 pm 16. Has since normalized to 126/66, HR 71. No answer. Left message requesting a return call. Forward updates to PCP for review. /es/ COSTA TOLLIVER, MSN, RN, CNL ELECTRICIAN TELEPHONE NURSE BAKERY ASSISTANT OF TELEHEALTH Signed: 08/05/2023 13:19 Receipt Acknowledged By: 08/05/2023 13:25 /es/ Stacey Aggarwal DNP, GASFITTER-BC, CNL Primary Care Nurse Practitioner 08/05/2023 ADDENDUM STATUS: COMPLETED Talked with Vet, reviewed above. He will come to for BP check when on campus for endo visit on 09/03 /es/ Radha Bustillo MSN RN CNL Primary Care RN Signed: 08/05/2023 13:34 [facility]
--- OUTSIDE RECORDS SUMMARY | 2024-05-29 10:27 | XMS_ITS | Encounter Summary ---
Author Name [facility] [place] [facility] [place] Address [address] [place] [id number] Care Team Providers Care End Lathe Operator Name Role Phone STACEY HORTON Primary [...] STAND YON SELF May 29, [phone] [id number] Abdullahi SEVERINO PATIENT MEDICARE (WNR) MEDICARE (M) PART B Jul 18, 2012 PART B [id number] Abdullahi SEVERINO PATIENT MEDICARE (WNR) MEDICARE (M) PART B Jul 18, 2012 PART B [id number] Abdullahi SEVERINO PATIENT MEDICARE (WNR) MEDICARE (M) PART B Jul 18, 2012 PART B [id number] [phone] Abdullahi SEVERINO PATIENT MEDICARE (WNR) MEDICARE (M) PART A Dec 19, 2011 PART A [id number] Abdullahi SEVERINO PATIENT MEDICARE (WNR) MEDICARE (M) PART A Dec 19, 2011 PART A [id number] Abdullahi SEVERINO PATIENT MEDICARE (WNR) MEDICARE (M) PART A Dec 19, 2011 PART A [id number] [phone] Abdullahi SEVERINO PATIENT Selected Encounter This section includes the information on record at [place] for the Encounter. Date/Time Encounter Type Encounter Description Reason Provider Source Aug 07, 2023 10:00 AM DIAB MANAGE TRN PER INDIV DIABETES CLINIC ICD-10-CM E11.9 Type 2 diabetes mellitus without complications IBRAHIMA VANCE Afshin Encounter Template Text not used by [place] Assessments - Encounter Diagnoses This section includes the primary and secondary diagnoses documented for the Encounter. Date/Time Primary/Secondary Diagnosis Diagnosis Name Provider Source Aug 07, 2023 02:55 PM PRIMARY Type 2 diabetes mellitus without complications MAURO VANCE DAYTON Plan of Treatment: Future Appointments (+ 6 months) and Future Tests (+/- 45 days) The Plan of Treatment section includes future care activities for the patient from [facility] [place] [facility] This section includes future appointments and future orders which are active, pending or scheduled. Future Appointments This section includes appointments that were scheduled to occur 6 months from the date of the Encounter, up to a maximum of 20 appointments. The data comes from all [place] treatment facilities. Appointment Date/Time Appointment Type Appointme nt Facility Name Sep 04, 2023 10:00 AM AMBULATORY - MEDICINE [place] [facility] [place] [facility] Sep 04, 2023 11:00 AM AMBULATORY - MEDICINE [facility] [place] [facility] Sep 05, 2023 09:00 AM AMBULATORY - MEDICINE [facility] [place] [facility] Sep 09, 2023 02:00 PM AMBULATORY - NONE [facility] [place] [facility] September 23, 2023 11:30 AM AMBULATORY - MEDICINE [facility] [place] [facility] October 04, 2023 11:00 AM AMBULATORY - MEDICINE [facility] [place] [facility] Nov 20, 2023 10:00 AM AMBULATORY - MEDICINE [facility] Dec 05, 2023 10:30 AM AMBULATORY - MEDICINE [place] [facility] [place] [facility] Dec 25, 2023 01:00 PM AMBULATORY - MEDICINE [facility] Dec 26, 2023 10:45 AM AMBULATORY - NONE [place] [facility] [place] [facility] Dec 31, 2023 08:00 AM AMBULATORY - MEDICINE [place] [facility] [place] [facility] Jan 17, 2024 08:00 AM [facility] Lab Results: +/- 30 days of the encounter This section includes the Chemistry and Hematology Lab Results on record with [place] for the patient. Radiology Reports and Pathology Reports are provided separately, in subsequent sections. Lab Results This section contains the Chemistry/Hematology Results that were resulted 30 days before or 30 daysafter the date of the Encounter. Date/Time Source Result Type Result - Unit Interpretation Reference Range Comment Aug 16, 2023 07:56 AM [facility] MICROALBUMIN CREATININE RATIO PANEL Specimen Type: URINE No comment entered. Ordering Provider: DEISY VELASCO Report Released Date/Time: May 29, 2023 12:04 PM Reporting [facility] [place] [facility] [address] [facility] [address] Performing Lab: [facility] [address] [facility] [address] MICROALBUMIN/C REATININE RATIO 111.2 mg/g H 0-29.9 MICROALBUMIN,Q UANTITATIVE 9.3 mg/dL RR UNAVAIL CREATININE URINE 83.60 mg/dL Aug 16, 2023 07:56 AM [facility] LIPID PANEL FASTING Specimen Type: SERUM No comment entered. Ordering Provider: DEISY VELASCO Report Released Date/Time: May 29, 2023 12:04 PM Reporting Lab: [facility] [address] [facility] [address] Performing Lab: [facility] [address] [facility] [address] CHOLESTEROL 122 mg/dL TRIGLYCERIDE 399 mg/dL H 0-150 LDL calculated Reflex to dLD L mg/dL 0-129 CHOL/HDL 3.9 HDL CHOLESTEROL 31 mg/dL L 40-60 LDL DIRECT 45 mg/dL Aug 16, 2023 07:56 AM [facility] HEMOGLOBIN A1C PANEL Specimen Type: BLOOD [...] May 29, 2023 12:04 PM Reporting Lab: [facility] [address] [facility] [address] Performing Lab: [address] [address] HEMOGLOBIN A1C 7.3 H 4.0-5.6 Aug 16, 2023 07:56 AM [facility] BASIC METABOLIC PANEL (fasting) Specimen Type: SERUM No comment entered. Ordering Provider: DEISY VELASCO Report Released Date/Time: May 29, 2023 12:04 PM Reporting Lab: [facility] [address] [facility] [address] Performing Lab: [address] [address] UREA NITROGEN 17 mg/dL 7-25 GLUCOSE 162 mg/dL H 65-100 SODIUM 139 mmol/L 135-145 POTASSIUM 4.1 mmol/L 3.5-5.0 CHLORIDE 104 mmol/L 100-110 CO2 24 meq/L 20-30 CREATININE, Serum 1.06 mg/dL 0.50-1.40 eGFR(CKD-EPI 2020) 72 mL/min >60 Advance Directives: All historical and current Section Date Range: From patient's date of to the date document was created. This section includes ALL of a patient's completed or amended [place] Advance and Rescinded Directives. The entries below indicate that a directive exists for the patient, but an actual copy is not included with this document. The data comes from all [place] facilities. Date Advance Directives Provider Source Feb 04, 2019 ADVANCE DIRECTIVE CESAR LUA [facility] Encounter Notes: All associated encounter notes This section contains the clinical notes associated to the Encounter. Date/Time Encounter Note(s) Provider Source Nov 15, 2023 09:11 AM ADDENDUM: LOCAL TITLE: Addendum STANDARD TITLE: ADDENDUM DATE OF NOTE: NOV 15, 2023@09:11:48 ENTRY DATE: NOV 15, 2023@09:11:49 AUTHOR: MAURO VANCE EXP COSIGNER: URGENCY: STATUS: COMPLETED Dr. Velasco, [place] is coming in next week and it was noted in my July appt that he would be a good candidate for the Bhargav 3 sensor. Do you think this would be a good idea? Billing And Insurance Coordinator will place RXs for both if you sign off on them. Thank you. /es/ MAURO VANCE, RN,BSN, FORMERLY NAMED [facility] DIABETES PROCESS COORDINATOR, RN Signed: 11/15/2023 09:13 Receipt Acknowledged By: 11/15/2023 09:20 /es/ DEISY VELASCO MD STAFF PHYSICIAN --- Original Document --- 08/07/23 DIABETES EDU FOLLOW UP: FOLLOW UP DIABETES EDUCATION VISIT Demographics: Patient Name: CARL SEVERINO Age: 78 Sex: MALE Race: WHITE MARITAL STATUS - NEVER Introduction: identified with 2 identifiers: [X] Full Name [X] Date of [ ] Address [ ] [place] ID Card PATIENT PHONE - PHONE NUMBER [CELLULAR] - Is patient phone number correct, if not, enter below: [place]'s phone number: CARL SEVERINO [address], [place], [address] MOST RECENT LABS: HEMOGLOBIN A1C TREND Collection DT Spec HGBA1c 04/25/2023 08:45 BLOOD 6.7 H 01/22/2023 09:03 BLOOD 8.0 H 10/18/2022 10:16 BLOOD 7.7 H 06/22/2022 08:29 BLOOD 8.4 H 03/15/2022 08:19 BLOOD 8.6 H CHEM 7 TREND LAB CUMULATIVE SELECTED Collection DT Spec GLUCOSE BUN CREATIN Sodium K+/Pot CL CO2 04/25/2023 08:45 SERUM 89 21 0.94 140 4.0 106 25 01/22/2023 09:03 SERUM 178 H 26 H 1.07 136 4.2 101 23 10/18/2022 10:16 SERUM 119 H 15 0.83 140 4.3 106 22 06/22/2022 08:29 SERUM 305 H 24 0.96 136 4.4 103 23 03/15/2022 08:19 SERUM 229 H 13 0.75 137 4.3 104 21 Collection DT Spec eGFR 03/01/2009 08:58 SERUM >60 03/09/2008 11:19 SERUM >60 LAB CUMULATIVE SELECTED 2 No selection items chosen for this component. CHEM 7 Results Collection DT Spec Sodium K+/Pot CL CO2 GLUCOSE BUN eGFR 04/25/2023 08:45 SERUM 140 4.0 106 25 89 21 01/22/2023 09:03 SERUM 136 4.2 101 23 178 H 26 H 10/18/2022 10:16 SERUM 140 4.3 106 22 119 H 15 06/22/2022 08:29 SERUM 136 4.4 103 23 305 H 24 03/15/2022 08:19 SERUM 137 4.3 104 21 229 H 13 12/20/2021 09:29 SERUM 138 4.2 106 24 165 H 11 06/20/2021 09:33 SERUM 139 4.3 101 26 157 H 20 03/15/2021 09:35 SERUM 139 4.4 103 26 194 H 13 11/07/2020 08:48 SERUM 139 4.1 107 23 178 H 12 08/11/2020 13:11 SERUM 142 3.9 107 25 81 13 04/19/2020 09:29 SERUM 137 4.2 101 20 226 H 14 11/16/2019 08:18 SERUM 138 4.3 103 26 211 H 13 09/30/2019 08:45 SERUM 138 4.0 105 comment 164 H 15 04/03/2019 10:36 SERUM 139 4.4 104 26 112 H 16 11/26/2018 14:07 SERUM 139 4.4 104 26 256 H 18 10/09/2018 11:07 SERUM 141 4.3 105 24 121 H 19 04/08/2018 08:37 SERUM 139 4.0 104 27 99 16 09/26/2017 13:46 SERUM 141 4.4 105 29 288 H 17 05/29/2017 09:38 SERUM 139 4.3 104 canc 104 H 16 03/14/2017 12:04 SERUM 141 4.1 107 27 155 H 13 12/19/2015 09:29 SERUM 139 4.3 105 25 151 H 16 07/12/2015 08:06 SERUM 141 4.3 105 28 158 H 14 06/29/2015 09:05 SERUM 142 4.7 106 28 136 H 13 02/11/2015 07:23 SERUM 140 4.0 106 25 133 H 16 01/25/2014 07:06 SERUM 140 4.2 103 27 171 H 17 12/07/2013 07:06 SERUM 4.6 182 H 09/17/2013 09:45 SERUM 4.6 264 H 17 05/26/2013 10:15 SERUM 4.3 16 02/04/2013 07:37 SERUM 4.8 15 01/20/2013 11:50 SERUM 4.1 16 10/09/2012 08:38 SERUM 4.2 16 09/17/2012 07:20 SERUM 141 4.5 203 H 07/17/2011 08:07 SERUM 4.5 149 H 06/20/2010 07:32 SERUM 139 4.2 105 24 164 H 19 03/01/2009 08:58 SERUM 4.5 107 H >60 03/09/2008 11:19 SERUM 138 3.9 106 23 206 H 18 >60 04/03/2005 09:36 SERUM 139 4.4 105 26 122 H 17 03/21/2005 11:04 SERUM 137 4.2 103 27 168 H 12 LIPID PANEL TREND Collection DT Spec CHOL HDL CHO/HDL LDL-d LDL-c TRIG 04/25/2023 08:45 SERUM 119 29 L 4.1 39 Reflex to dLDL 709 H 01/22/2023 09:03 SERUM 135 31 L 4.4 45 Reflex to dLDL 550 H 06/22/2022 08:29 SERUM 128 29 L 4.4 45 Reflex to dLDL 548 H 12/20/2021 09:29 SERUM 130 28 L 4.6 51 Reflex to dLDL 409 H 06/20/2021 09:33 SERUM 136 32 L 4.3 54 251 H CREATININE-EGFR 04/25/23 08:45 0.94 01/22/23 09:03 1.07 10/18/22 10:16 0.83 EGFR - NONE FOUND WEIGHT: 251.4 lb [114.03 kg] (05/29/2023 10:14) HEIGHT: 71 in [180.3 cm] (04/05/2023 11:09) BMI: 35.1 ___ REASON FOR VISIT: Type 2 diabetes, being treated with U500 concentrated insulin. Using the Trigger.iostyle Bhargav 2 sensor. Reports that he ran out of sensors and is down to one sensor at home. Has not used the sensor since June. Has an appt with Dr. Velasco in a week and encouraged he start the last sensor so he has information for Dr. Velasco on his sensor. Admits he was using his meter during most of the month of July. No illness, no trips to hospital or ER and no falls. Had dental work last week and he was eating soft foods and soups. He may continue this soft food diet for another week because he admits the tooth work has been painful. Behavior health goals set at previous visit: Continue taking doses of U500 insulin and continue to wear the Bhargav sensor to check blood sugars. Clinical or Quality of Life outcome goal set at last visit: Wants to be seen by orthopedic surgeon for his knees and have replacement surgery in the future. Diabetes Distress Support: How would you rate your overall health? Great, legs do hurt with walking. Feeling overwhelmed by the demands of diabetes? No, sometimes more related to personal issues in his life. On a scale of 1-6, how would you rate your distress with diabetes? 0 for diabetes; 6 with his adopted son. How do you deal with this stress/distress: Goes to [employer] hockey games with a friend. NUTRITION: In the last 12 months, were there times when the food for you just did not last and there was no money to buy more? No MEALS: BREAKFAST- bowl of rice crispies or oatmeal or generic cheerios or egg with milk; coffee is all day (4-5 cups per day) some is black and some has no- sugar creamer. LUNCH- piece of fruit; DINNER- roasted pastrami, fish, or pork chops or grilled chicken or salad with cottage cheese. SNACKS- fruit and sometimes at night, crackers with butter BEVERAGES CARBOHYDRATE COUNTING- MEAL PLANNING WITH PLATE METHOD- FOOD LABELING- BENEFITS OF WEIGHT LOSS- PHYSICAL ACTIVITY Doing PT exercises. Stopped going to PT. Was going for his knees and his right arm. Had an injury and broke his clavicle many years ago. It is acting up again. The exercises does help a lot. His pain has improved. Knee replacement should occur once A1C comes down. Plans to go to [facility]. Services utilized during the past year Clinic visit/primary care provider- November 26 Nutrition/dietitian- not recently. Podiatry- last month, [facility], getting shoes next Saturday. Eye exam- May 2023, goes to [facility] Lab tests- done in Jan. Dental- tomorrow Vaccines- had flu vaccine, has not had COVID vaccine. Comments: BLOOD GLUCOSE MONITORING Downloaded his meter today because he has been using meter for the last month: Name: CARL SEVERINO : 1945 ID: [id number] Information from [employer] [facility] on 08/07/2023 Patient Name: CARL SEVERINO Date Range: 05/10/2023 - 08/07/2023 bG values are displayed in mg/dL # of tests 138 Average 191 SD 61.2 Highest 372 Lowest 61 Avg tests/day 1.5 # HI 0 # LO 0 <70 0.7% 70-140 23.2% >140 76.1% Hypos(<50) 0 Date Range: 05/10/2023 - 08/07/2023 bG values are displayed in mg/dL 00:00- 05:30- 08:00- 11:00- 12:30- 17:00- 18:30- 21:30- 05:30 08:00 11:00 12:30 17:00 18:30 21:30 00:00 05/10/2023 178 128 05/11/2023 229 121 182 05/12/2023 277 102 05/13/2023 223 160 120 05/14/2023 197 248 206 05/15/2023 171 Jody 05/16/2023 224 266 155 05/17/2023 192 194 05/18/2023 187 189 186 05/19/2023 89 165 372 05/20/2023 107 05/21/2023 222 183 175 173 05/22/2023 132 346 Jody 05/23/2023 112 204 267 05/24/2023 182 225 05/25/2023 117 210 05/26/2023 218 240 05/27/2023 196 222 140 05/28/2023 259 186 185 165 05/29/2023 136 155 117 Jody 05/30/2023 259 162 230 167 05/31/2023 129 194 224 06/01/2023 96 130 222 06/02/2023 119 06/03/2023 247 112 06/04/2023 269 113 216 06/05/2023 92 96 314 Jody 06/06/2023 109 235 06/07/2023 175 198 217 06/08/2023 108 288 06/23/2023 233 61 99 Mon 06/24/2023 361 06/25/2023 178 105 07/07/2023 272 07/10/2023 173 Jody 07/11/2023 255 145 07/12/2023 124 146 304 07/13/2023 205 121 180 07/14/2023 180 189 193 07/15/2023 160 124 07/16/2023 244 07/17/2023 158 205 201 Jody 07/18/2023 145 07/19/2023 284 168 07/20/2023 222 274 228 207 07/21/2023 219 339 07/22/2023 196 168 07/23/2023 119 07/24/2023 134 Jody 07/25/2023 199 305 219 07/26/2023 192 96 07/27/2023 165 133 07/28/2023 160 240 07/29/2023 213 07/30/2023 175 250 07/31/2023 184 Jody 08/01/2023 173 08/02/2023 321 08/03/2023 232 08/04/2023 202 149 08/05/2023 285 139 08/06/2023 189 189 08/07/2023 242 Date Range: 05/10/2023 - 08/07/2023 bG values are displayed in mg/dL 00:00- 05:30- 08:00- 11:00- 12:30- 17:00- 18:30- 21:30- 05:30 08:00 11:00 12:30 17:00 18:30 21:30 00:00 # of tests 24 18 48 12 15 3 2 16 Average 193 168 170 191 222 212 178 242 SD 55.2 53 54.9 46.7 74.4 21.1 53.7 63.1 Hi/Lo 0 0 0 0 0 0 0 0 Date Range: 05/10/2023 - 08/07/2023 bG values are displayed in mg/dL 05/10/2023 12:05 AM 178 9:00 AM 128 05/11/2023 4:18 AM 229 10:19 AM 121 9:56 PM 182 05/12/2023 2:55 AM 277 9:05 AM 102 05/13/2023 2:53 AM 223 9:11 AM 160 3:27 PM 120 05/14/2023 9:04 AM 197 11:29 AM 248 5:55 PM 206 05/15/2023 10:42 AM 171 05/16/2023 7:28 AM 224 8:58 AM 266 [...] 05/29/2023 1:51 AM 136 9:50 AM 155 1:12 PM 117 05/30/2023 8:51 AM 259 10:07 AM 230 10:42 AM 167 10:58 PM 162 05/31/2023 7:46 AM 129 5:38 PM 194 10:46 PM 224 06/01/2023 4:02 AM 96 8:19 AM 130 11:36 PM 222 06/02/2023 9:29 AM 119 06/03/2023 1:58 AM 247 8:47 AM 112 06/04/2023 1:21 AM 269 8:18 AM 113 8:48 PM 216 06/05/2023 4:49 AM 92 6:32 AM 96 10:38 PM 314 06/06/2023 8:32 AM 109 6:06 PM 235 06/07/2023 9:22 AM 175 10:13 AM 217 11:26 PM 198 06/08/2023 5:01 AM 108 1:21 PM 288 06/23/2023 4:31 AM 233 7:31 AM 61 9:01 AM 99 06/24/2023 1:12 PM 361 06/25/2023 3:41 AM 178 8:03 AM 105 07/07/2023 12:39 AM 272 07/10/2023 10:20 AM 173 07/11/2023 8:49 AM 255 12:17 PM 145 07/12/2023 2:08 AM 124 9:31 AM 146 11:12 PM 304 07/13/2023 12:48 AM 205 2:54 AM 180 9:19 AM 121 07/14/2023 5:25 AM 180 11:54 AM 189 2:50 PM 193 07/15/2023 1:56 AM 160 8:52 AM 124 07/16/2023 8:30 AM 244 07/17/2023 12:56 AM 158 10:04 AM 205 10:53 PM 201 07/18/2023 6:23 AM 145 07/19/2023 9:51 AM 284 12:24 PM 168 07/20/2023 12:04 AM 222 7:34 AM 274 9:22 AM 228 10:36 AM 207 07/21/2023 2:01 PM 219 3:31 PM 339 07/22/2023 8:02 AM 196 9:02 AM 168 07/23/2023 9:04 AM 119 07/24/2023 11:41 AM 134 07/25/2023 7:52 AM 199 1:18 PM 305 3:11 PM 219 07/26/2023 12:34 AM 192 8:26 AM 96 07/27/2023 5:51 AM 165 7:14 AM 133 07/28/2023 7:28 AM 160 1:38 PM 240 07/29/2023 7:53 AM 213 07/30/2023 7:56 AM 175 10:28 PM 250 07/31/2023 9:50 AM 184 08/01/2023 6:50 AM 173 08/02/2023 8:53 AM 321 08/03/2023 11:55 AM 232 08/04/2023 5:21 AM 202 11:47 AM 149 08/05/2023 11:52 AM 285 3:06 PM 139 08/06/2023 7:42 AM 189 11:14 AM 189 08/07/2023 7:53 AM 242 End of information from [facility] Used the sensor during the month of June: 06/13/23- 07/10/23 Average glucose for the last 28 days is 187 mg/dl. Very High >250 mg/dl: 14% High 181-250 mg/dl: 40% Target Range 70-180 mg/dl: 45% Low 54-69 mg/dl: 1% Very Low <54 mg/dl: 0% GMI: 7.8% Glucose Variability: 29.2% The main trend noted are elevated glucose between the hours of 8:30 am until 4 pm and again between 6:30 pm until 2:30 am. There were 5 days of low glucose occurring between the hours of 12 am until 6 am. Download from March: 03/07/23- 04/03/23 Average glucose is 161 mg/dl for 28 days. 65% are in target range (70-180 mg/dl) 31% are above 180 mg/dl 3% are above 250 mg/dl 1% are below 70 mg/dl 0% is below 50 mg/dl The main trend noted are elevated glucose between 6 pm-9 pm. Dinner time is around 5-6 pm. The sensor download does show lower glucose in the middle of the night, between 12 am-3 am and [place] reports that when he checks his glucose with a meter, his blood sugar is not actually low, he does not have symptoms and when he has checked his meter, his glucose is actually 90-110 mg/dl instead of 20-68 mg/dl what the sensor was reading. Download from December 05: Average glucose is 181 mg/dl for 28 days. 54% are in target range (70-180 mg/dl) 35% are above 180 mg/dl 11% are above 250 mg/dl 0% are below 70 mg/dl 0% are below 50 mg/dl Previous download is from October 11. Average glucose for 28 days is: 207 mg/dl 36% are in target range 70-180 mg/dl 40% are above 180 mg/dl 24% are above 250 mg/dl 0% are below 70 mg/dl 0% are below 50 mg/dl DIABETES MEDICATIONS: U500 insulin before meals (3x/day): 85-95-75 units Misses lunch dose the most. Empagliflozin 25 mg, 1 tab once a day. Metformin 500 mg, 1 tab twice a day. ADMINISTERS VIA pen STORAGE OF INSULIN/OTHER INJECTABLES: INJECTIONS SITES: legs SITES VIEWED: No ANY EVIDENCE OF LIPOHYPERTROPHY HYPOGLYCEMIA Download of sensor reveals 5 days of low glucose, however, his meter download did not reveal lows and he reports he checks his glucose often when he wakes up in the middle of the night to urinate. CAUSES/SYMPTOMS: none TREATMENT/PREVENTION: 1/2 glass of milk MEDIC ID/ HAS ONE: No GLUCAGON: Yes DRIVING SAFETY: Reviewed HYPERGLYCEMIA ASSESSMENT: Kindly referred by Dr. Velasco. Now being treated with U500 insulin, in addition to Freestyle Bhargav 2 sensor. Last A1C was 6.7% in April. The meter download shows an average of 191 mg/dl for the last 90 days and the sensor download shows an average of 187 mg/dl for 28 days. Destiney reports he ran out of sensors and only has 1 left, therefore, he was nervous about using it until he received more in the mail. Waiting for the next shipment. No changes were made with insulin today since the sensor download is from about 1 month ago and the meter download has more blood sugars from pre-breakfast or pre-lunch, however, not checking consistently with the other times as much. Reports he is due to see Endocrine in August. Destiney would be a great candidate for the Bhargav 3 sensor because he has some days where data is missing, otherwise, he is fairly good about scanning his Bhargav 2 sensor often. He has a buyer liaison, therefore, he would need another buyer liaison of the Bhargav 3 ordered for him. A1C shows a lot of improvement since it was last checked in January of 8.0%. Destiney will follow up with Diabetes Education in 3 months and Follow up with Dr. Velasco in August. Behavioral goal 1 met: 100% of the time Behavioral goal 2 met: % of the time Clinical or Quality of Life Follow-up scheduled STRATEGIES FOR BEHAVIOR CHANGE Education plan/goals/objectives: Assessment/Scale: 1= needs instruction; 2= needs review; 3= comprehends vazquez points; 4= demonstrates understanding/competency; NC= Not covered; N/A= not applicable Topics Learning Objectives: Diabetes Pathophysiology (define diabetes and identify own type of diabetes; list 2 options for treating diabetes) Dates Covered & Assessment: 12/05/22; 04/03/23; 08/07/23; Healthy Eating (Describe effect of type, amount and timing of food on blood glucose; list 3 methods for planning meals) Dates Covered & Assessment: 12/05/22; 04/03/23; 08/07/23; Being Active (State effect of exercise on blood glucose levels) Dates Covered & Assessment: 12/05/22; 04/03/23; 08/07/23; Taking Medication (State effect of diabetes medicines on diabetes; name diabetes medication taking, action and side effects) Dates Covered & Assessment: 12/05/22; 04/03/23; 08/07/23; Monitoring Glucose (Identify recommended blood glucose targets and personal targets) Dates Covered & Assessment: 12/05/22; 04/03/23; 08/07/23; Acute Complications (List symptoms and treatment of hyper- and hypoglycemia, DKA, sick day guidelines and guidelines for severe weather or situation crisis and diabetes supply management) Dates Covered & Assessment: 12/05/22; 04/03/23; 08/07/23; Chronic Complications (Define the relationship of blood glucose levels to retirement complications of diabetes and screening and preventative measures) Dates Covered & Assessment: 12/05/22; 04/03/23; 08/07/23; Lifestyle and Healthy Coping (Describe life style and healthy coping strategies to promote diabetes self-management) Dates Covered & Assessment: 12/05/22; 04/03/23; 08/07/23; Diabetes Distress and Support (Recognize diabetes Distress and be able to identify support options) Dates Covered & Assessment: 12/05/22; 04/03/23; 08/07/23; HEALTH GOAL #1: In order to meet this goal, I will: Continue current doses of U500 insulin. HEALTH GOAL #2: In order to meet this goal, I will: Continue to check glucose with Bhargav 2 sensor. Clinical or Quality of Life outcome baseline: FUTURE APPOINTMENTS: 09/04/2023 10:00 NHM/ENDOCRINE 09/05/2023 09:00 COM CARE-ORTHO SURGICAL 09/09/2023 14:00 CWM/SO/SLEEP DME/WITH EDU 10/04/2023 11:00 CWM/NO/PACT 7 DM type is : Type 2 diabetes Length of Visit: 60 minutes /skinny/ MAURO VANCE RN,BSN, [facility] DIABETES PROCESS COORDINATOR, RN Signed: 08/07/2023 14:55 MAURO VANCE Aug 07, 2023 02:56 PM DIABETOLOGY NOTE: LOCAL TITLE: INSULIN PUMP/CGM DOWNLOAD (T) STANDARD TITLE: DIABETOLOGY NOTE DATE OF NOTE: AUG 07, 2023@14:56 ENTRY DATE: AUG 07, 2023@14:56:23 AUTHOR: MAURO VANCE EXP COSIGNER: URGENCY: STATUS: COMPLETED Please select: Personal Continuous Glucose Monitor Date of Documentation:Jul Please see attached scanned document in [facility] [facility]. DX: Type 2 diabetes Sensor: Bhargav 2 /skinny/ MAURO VANCE RN,BSN, [facility] DIABETES PROCESS COORDINATOR, RN Signed: 08/07/2023 14:56 MAURO VANCE Aug 07, 2023 10:01 AM DIABETOLOGY EDUCAT ION NOTE: LOCAL TITLE: DIABETES EDU FOLLOW UP STANDARD TITLE: DIABETOLOGY EDUCATION NOTE DATE OF NOTE: AUG 07, 2023@10:01 ENTRY DATE: AUG 07, 2023@10:01:15 AUTHOR: MAURO VANCE EXP COSIGNER: URGENCY: STATUS: COMPLETED DIABETES EDU FOLLOW UP Has ADDENDA FOLLOW UP DIABETES EDUCATION VISIT Demographics: Patient Name: CARL SEVERINO Age: 78 Sex: MALE Race: WHITE MARITAL STATUS - NEVER Introduction: identified with 2 identifiers: [X] Full Name [X] Date of [ ] Address [ ] VA ID Card PATIENT PHONE - PHONE NUMBER [CELLULAR] - Is patient phone number correct, if not, enter below: [place]'s phone number: CARL SEVERINO [address], [place], [address] MOST RECENT LABS: HEMOGLOBIN A1C TREND Collection DT Spec HGBA1c 04/25/2023 08:45 BLOOD 6.7 H 01/22/2023 09:03 BLOOD 8.0 H 10/18/2022 10:16 BLOOD 7.7 H 06/22/2022 08:29 BLOOD 8.4 H 03/15/2022 08:19 BLOOD 8.6 H CHEM 7 TREND LAB CUMULATIVE SELECTED Collection DT Spec GLUCOSE BUN CREATIN Sodium K+/Pot CL CO2 04/25/2023 08:45 SERUM 89 21 0.94 140 4.0 106 25 01/22/2023 09:03 SERUM 178 H 26 H 1.07 136 4.2 101 23 10/18/2022 10:16 SERUM 119 H 15 0.83 140 4.3 106 22 06/22/2022 08:29 SERUM 305 H 24 0.96 136 4.4 103 23 03/15/2022 08:19 SERUM 229 H 13 0.75 137 4.3 104 21 Collection DT Spec eGFR 03/01/2009 08:58 SERUM >60 03/09/2008 11:19 SERUM >60 LAB CUMULATIVE SELECTED 2 No selection items chosen for this component. CHEM 7 Results Collection DT Spec Sodium K+/Pot CL CO2 GLUCOSE BUN eGFR 04/25/2023 08:45 SERUM 140 4.0 106 25 89 21 01/22/2023 09:03 SERUM 136 4.2 101 23 178 H 26 H 10/18/2022 10:16 SERUM 140 4.3 106 22 119 H 15 06/22/2022 08:29 SERUM 136 4.4 103 23 305 H 24 03/15/2022 08:19 SERUM 137 4.3 104 21 229 H 13 12/20/2021 09:29 SERUM 138 4.2 106 24 165 H 11 06/20/2021 09:33 SERUM 139 4.3 101 26 157 H 20 03/15/2021 09:35 SERUM 139 4.4 103 26 194 H 13 11/07/2020 08:48 SERUM 139 4.1 107 23 178 H 12 08/11/2020 13:11 SERUM 142 3.9 107 25 81 13 04/19/2020 09:29 SERUM 137 4.2 101 20 226 H 14 11/16/2019 08:18 SERUM 138 4.3 103 26 211 H 13 09/30/2019 08:45 SERUM 138 4.0 105 comment 164 H 15 04/03/2019 10:36 SERUM 139 4.4 104 26 112 H 16 11/26/2018 14:07 SERUM 139 4.4 104 26 256 H 18 10/09/2018 11:07 SERUM 141 4.3 105 24 121 H 19 04/08/2018 08:37 SERUM 139 4.0 104 27 99 16 09/26/2017 13:46 SERUM 141 4.4 105 29 288 H 17 05/29/2017 09:38 SERUM 139 4.3 104 canc 104 H 16 03/14/2017 12:04 SERUM 141 4.1 107 27 155 H 13 12/19/2015 09:29 SERUM 139 4.3 105 25 151 H 16 07/12/2015 08:06 SERUM 141 4.3 105 28 158 H 14 06/29/2015 09:05 SERUM 142 4.7 106 28 136 H 13 02/11/2015 07:23 SERUM 140 4.0 106 25 133 H 16 01/25/2014 07:06 SERUM 140 4.2 103 27 171 H 17 12/07/2013 07:06 SERUM 4.6 182 H 09/17/2013 09:45 SERUM 4.6 264 H 17 05/26/2013 10:15 SERUM 4.3 16 02/04/2013 07:37 SERUM 4.8 15 01/20/2013 11:50 SERUM 4.1 16 10/09/2012 08:38 SERUM 4.2 16 09/17/2012 07:20 SERUM 141 4.5 203 H 07/17/2011 08:07 SERUM 4.5 149 H 06/20/2010 07:32 SERUM 139 4.2 105 24 164 H 19 03/01/2009 08:58 SERUM 4.5 107 H >60 03/09/2008 11:19 SERUM 138 3.9 106 23 206 H 18 >60 04/03/2005 09:36 SERUM 139 4.4 105 26 122 H 17 03/21/2005 11:04 SERUM 137 4.2 103 27 168 H 12 LIPID PANEL TREND Collection DT Spec CHOL HDL CHO/HDL LDL-d LDL-c TRIG 04/25/2023 08:45 SERUM 119 29 L 4.1 39 Reflex to dLDL 709 H 01/22/2023 09:03 SERUM 135 31 L 4.4 45 Reflex to dLDL 550 H 06/22/2022 08:29 SERUM 128 29 L 4.4 45 Reflex to dLDL 548 H 12/20/2021 09:29 SERUM 130 28 L 4.6 51 Reflex to dLDL 409 H 06/20/2021 09:33 SERUM 136 32 L 4.3 54 251 H CREATININE-EGFR 04/25/23 08:45 0.94 01/22/23 09:03 1.07 10/18/22 10:16 0.83 EGFR - NONE FOUND WEIGHT: 251.4 lb [114.03 kg] (05/29/2023 10:14) HEIGHT: 71 in [180.3 cm] (04/05/2023 11:09) BMI: 35.1 ___ REASON FOR VISIT: Type 2 diabetes, being treated with U500 concentrated insulin. Using the Freestyle Bhargav 2 sensor. Reports that he ran out of sensors and is down to one sensor at home. Has not used the sensor since June. Has an appt with Dr. Velasco in a week and encouraged he start the last sensor so he has information for Dr. Velasco on his sensor. Admits he was using his meter during most of the month of July. No illness, no trips to hospital or ER and no falls. Had dental work last week and he was eating soft foods and soups. He may continue this soft food diet for another week because he admits the tooth work has been painful. Behavior health goals set at previous visit: Continue taking doses of U500 insulin and continue to wear the Bhargav sensor to check blood sugars. Clinical or Quality of Life outcome goal set at last visit: Wants to be seen by orthopedic surgeon for his knees and have replacement surgery in the future. Diabetes Distress Support: How would you rate your overall health? Great, legs do hurt with walking. Feeling overwhelmed by the demands of diabetes? No, sometimes more related to personal issues in his life. On a scale of 1-6, how would you rate your distress with diabetes? 0 for diabetes; 6 with his adopted son. How do you deal with this stress/distress: Goes to [employer] hockey games with a friend. NUTRITION: In the last 12 months, were there times when the food for you just did not last and there was no money to buy more? No MEALS: BREAKFAST- bowl of rice crispies or oatmeal or generic cheerios or egg with milk; coffee is all day (4-5 cups per day) some is black and some has no- sugar creamer. LUNCH- piece of fruit; DINNER- roasted pastrami, fish, or pork chops or grilled chicken or salad with cottage cheese. SNACKS- fruit and sometimes at night, crackers with butter BEVERAGES CARBOHYDRATE COUNTING- MEAL PLANNING WITH PLATE METHOD- FOOD LABELING- BENEFITS OF WEIGHT LOSS- PHYSICAL ACTIVITY Doing PT exercises. Stopped going to PT. Was going for his knees and his right arm. Had an injury and broke his clavicle many years ago. It is acting up again. The exercises does help a lot. His pain has improved. Knee replacement should occur once A1C comes down. Plans to go to [facility]. Services utilized during the past year Clinic visit/primary care provider- November 26 Nutrition/dietitian- not recently. Podiatry- last month, [facility], getting shoes next Saturday. Eye exam- May 2023, goes to [facility] Lab tests- done in Jan. Dental- tomorrow Vaccines- had flu vaccine, has not had COVID vaccine. Comments: BLOOD GLUCOSE MONITORING Downloaded his meter today because he has been using meter for the last month: Name: CARL SEVERINO : 1945 ID: [id number] Information from [employer] [facility] on 08/07/2023 Patient Name: CARL SEVERINO Date Range: 05/10/2023 - 08/07/2023 bG values are displayed in mg/dL # of tests 138 Average 191 SD 61.2 Highest 372 Lowest 61 Avg tests/day 1.5 # HI 0 # LO 0 <70 0.7% 70-140 23.2% >140 76.1% Hypos(<50) 0 Date Range: 05/10/2023 - 08/07/2023 bG values are displayed in mg/dL 00:00- 05:30- 08:00- 11:00- 12:30- 17:00- 18:30- 21:30- 05:30 08:00 11:00 12:30 17:00 18:30 21:30 00:00 05/10/2023 178 128 05/11/2023 229 121 182 05/12/2023 277 102 05/13/2023 223 160 120 05/14/2023 197 248 206 05/15/2023 171 Jody 05/16/2023 224 266 155 05/17/2023 192 194 05/18/2023 187 189 186 05/19/2023 89 165 372 05/20/2023 107 05/21/2023 222 183 175 173 05/22/2023 132 346 Jody 05/23/2023 112 204 267 05/24/2023 182 225 05/25/2023 117 210 05/26/2023 218 240 05/27/2023 196 222 140 05/28/2023 259 186 185 165 05/29/2023 136 155 117 Jody 05/30/2023 259 162 230 167 05/31/2023 129 194 224 06/01/2023 96 130 222 06/02/2023 119 06/03/2023 247 112 06/04/2023 269 113 216 06/05/2023 92 96 314 Jody 06/06/2023 109 235 06/07/2023 175 198 217 06/08/2023 108 288 06/23/2023 233 61 99 Mon 06/24/2023 361 06/25/2023 178 105 07/07/2023 272 07/10/2023 173 Jody 07/11/2023 255 145 07/12/2023 124 146 304 07/13/2023 205 121 180 07/14/2023 180 189 193 07/15/2023 160 124 07/16/2023 244 07/17/2023 158 205 201 Jody 07/18/2023 145 07/19/2023 284 168 07/20/2023 222 274 228 207 07/21/2023 219 339 07/22/2023 196 168 07/23/2023 119 07/24/2023 134 Jody 07/25/2023 199 305 219 07/26/2023 192 96 07/27/2023 165 133 07/28/2023 160 240 07/29/2023 213 07/30/2023 175 250 07/31/2023 184 Jody 08/01/2023 173 08/02/2023 321 08/03/2023 232 08/04/2023 202 149 08/05/2023 285 139 08/06/2023 189 189 08/07/2023 242 Date Range: 05/10/2023 - 08/07/2023 bG values are displayed in mg/dL 00:00- 05:30- 08:00- 11:00- 12:30- 17:00- 18:30- 21:30- 05:30 08:00 11:00 12:30 17:00 18:30 21:30 00:00 # of tests 24 18 48 12 15 3 2 16 Average 193 168 170 191 222 212 178 242 SD 55.2 53 54.9 46.7 74.4 21.1 53.7 63.1 Hi/Lo 0 0 0 0 0 0 0 0 Date Range: 05/10/2023 - 08/07/2023 bG values are displayed in mg/dL 05/10/2023 12:05 AM 178 9:00 AM 128 05/11/2023 4:18 AM 229 10:19 AM 121 9:56 PM 182 05/12/2023 2:55 AM 277 9:05 AM 102 05/13/2023 2:53 AM 223 9:11 AM 160 3:27 PM 120 05/14/2023 9:04 AM 197 11:29 AM 248 5:55 PM 206 05/15/2023 10:42 AM 171 05/16/2023 7:28 AM 224 8:58 AM 266 [...] 05/29/2023 1:51 AM 136 9:50 AM 155 1:12 PM 117 05/30/2023 8:51 AM 259 10:07 AM 230 10:42 AM 167 10:58 PM 162 05/31/2023 7:46 AM 129 5:38 PM 194 10:46 PM 224 06/01/2023 4:02 AM 96 8:19 AM 130 11:36 PM 222 06/02/2023 9:29 AM 119 06/03/2023 1:58 AM 247 8:47 AM 112 06/04/2023 1:21 AM 269 8:18 AM 113 8:48 PM 216 06/05/2023 4:49 AM 92 6:32 AM 96 10:38 PM 314 06/06/2023 8:32 AM 109 6:06 PM 235 06/07/2023 9:22 AM 175 10:13 AM 217 11:26 PM 198 06/08/2023 5:01 AM 108 1:21 PM 288 06/23/2023 4:31 AM 233 7:31 AM 61 9:01 AM 99 06/24/2023 1:12 PM 361 06/25/2023 3:41 AM 178 8:03 AM 105 07/07/2023 12:39 AM 272 07/10/2023 10:20 AM 173 07/11/2023 8:49 AM 255 12:17 PM 145 07/12/2023 2:08 AM 124 9:31 AM 146 11:12 PM 304 07/13/2023 12:48 AM 205 2:54 AM 180 9:19 AM 121 07/14/2023 5:25 AM 180 11:54 AM 189 2:50 PM 193 07/15/2023 1:56 AM 160 8:52 AM 124 07/16/2023 8:30 AM 244 07/17/2023 12:56 AM 158 10:04 AM 205 10:53 PM 201 07/18/2023 6:23 AM 145 07/19/2023 9:51 AM 284 12:24 PM 168 07/20/2023 12:04 AM 222 7:34 AM 274 9:22 AM 228 10:36 AM 207 07/21/2023 2:01 PM 219 3:31 PM 339 07/22/2023 8:02 AM 196 9:02 AM 168 07/23/2023 9:04 AM 119 07/24/2023 11:41 AM 134 07/25/2023 7:52 AM 199 1:18 PM 305 3:11 PM 219 07/26/2023 12:34 AM 192 8:26 AM 96 07/27/2023 5:51 AM 165 7:14 AM 133 07/28/2023 7:28 AM 160 1:38 PM 240 07/29/2023 7:53 AM 213 07/30/2023 7:56 AM 175 10:28 PM 250 07/31/2023 9:50 AM 184 08/01/2023 6:50 AM 173 08/02/2023 8:53 AM 321 08/03/2023 11:55 AM 232 08/04/2023 5:21 AM 202 11:47 AM 149 08/05/2023 11:52 AM 285 3:06 PM 139 08/06/2023 7:42 AM 189 11:14 AM 189 08/07/2023 7:53 AM 242 End of information from [facility] Used the sensor during the month of June: 06/13/23- 07/10/23 Average glucose for the last 28 days is 187 mg/dl. Very High >250 mg/dl: 14% High 181-250 mg/dl: 40% Target Range 70-180 mg/dl: 45% Low 54-69 mg/dl: 1% Very Low <54 mg/dl: 0% GMI: 7.8% Glucose Variability: 29.2% The main trend noted are elevated glucose between the hours of 8:30 am until 4 pm and again between 6:30 pm until 2:30 am. There were 5 days of low glucose occurring between the hours of 12 am until 6 am. Download from March: 03/07/23- 04/03/23 Average glucose is 161 mg/dl for 28 days. 65% are in target range (70-180 mg/dl) 31% are above 180 mg/dl 3% are above 250 mg/dl 1% are below 70 mg/dl 0% is below 50 mg/dl The main trend noted are elevated glucose between 6 pm-9 pm. Dinner time is around 5-6 pm. The sensor download does show lower glucose in the middle of the night, between 12 am-3 am and reports that when he checks his glucose with a meter, his blood sugar is not actually low, he does not have symptoms and when he has checked his meter, his glucose is actually 90-110 mg/dl instead of 20-68 mg/dl what the sensor was reading. Download from December 05: Average glucose is 181 mg/dl for 28 days. 54% are in target range (70-180 mg/dl) 35% are above 180 mg/dl 11% are above 250 mg/dl 0% are below 70 mg/dl 0% are below 50 mg/dl Previous download is from October 11. Average glucose for 28 days is: 207 mg/dl 36% are in target range 70-180 mg/dl 40% are above 180 mg/dl 24% are above 250 mg/dl 0% are below 70 mg/dl 0% are below 50 mg/dl DIABETES MEDICATIONS: U500 insulin before meals (3x/day): 85-95-75 units Misses lunch dose the most. Empagliflozin 25 mg, 1 tab once a day. Metformin 500 mg, 1 tab twice a day. ADMINISTERS VIA pen STORAGE OF INSULIN/OTHER INJECTABLES: INJECTIONS SITES: legs SITES VIEWED: No ANY EVIDENCE OF LIPOHYPERTROPHY HYPOGLYCEMIA Download of sensor reveals 5 days of low glucose, however, his meter download did not reveal lows and he reports he checks his glucose often when he wakes up in the middle of the night to urinate. CAUSES/SYMPTOMS: none TREATMENT/PREVENTION: 1/2 glass of milk MEDIC ID/ HAS ONE: No GLUCAGON: Yes DRIVING SAFETY: Reviewed HYPERGLYCEMIA ASSESSMENT: Kindly referred by Dr. Velasco. Now being treated with U500 insulin, in addition to Freestyle Bhargav 2 sensor. Last A1C was 6.7% in April. The meter download shows an average of 191 mg/dl for the last 90 days and the sensor download shows an average of 187 mg/dl for 28 days. reports he ran out of sensors and only has 1 left, therefore, he was nervous about using it until he received more in the mail. Waiting for the next shipment. No changes were made with insulin today since the sensor download is from about 1 month ago and the meter download has more blood sugars from pre-breakfast or pre-lunch, however, not checking consistently with the other times as much. Reports he is due to see Endocrine in August. would be a great candidate for the Bhargav 3 sensor because he has some days where data is missing, otherwise, he is fairly good about scanning his Bhargav 2 sensor often. He has a buyer liaison, therefore, he would need another buyer liaison of the Bhargav 3 ordered for him. A1C shows a lot of improvement since it was last checked in January of 8.0%. will follow up with Diabetes Education in 3 months and Follow up with Dr. Velasco in August. Behavioral goal 1 met: 100% of the time Behavioral goal 2 met: % of the time Clinical or Quality of Life Follow-up scheduled STRATEGIES FOR BEHAVIOR CHANGE Education plan/goals/objectives: Assessment/Scale: 1= needs instruction; 2= needs review; 3= comprehends vazquez points; 4= demonstrates understanding/competency; NC= Not covered; N/A= not applicable Topics Learning Objectives: Diabetes Pathophysiology (define diabetes and identify own type of diabetes; list 2 options for treating diabetes) Dates Covered & Assessment: 12/05/22; 04/03/23; 08/07/23; Healthy Eating (Describe effect of type, amount and timing of food on blood glucose; list 3 methods for planning meals) Dates Covered & Assessment: 12/05/22; 04/03/23; 08/07/23; Being Active (State effect of exercise on blood glucose levels) Dates Covered & Assessment: 12/05/22; 04/03/23; 08/07/23; Taking Medication (State effect of diabetes medicines on diabetes; name diabetes medication taking, action and side effects) Dates Covered & Assessment: 12/05/22; 04/03/23; 08/07/23; Monitoring Glucose (Identify recommended blood glucose targets and personal targets) Dates Covered & Assessment: 12/05/22; 04/03/23; 08/07/23; Acute Complications (List symptoms and treatment of hyper- and hypoglycemia, DKA, sick day guidelines and guidelines for severe weather or situation crisis and diabetes supply management) Dates Covered & Assessment: 12/05/22; 04/03/23; 08/07/23; Chronic Complications (Define the relationship of blood glucose levels to oysterman complications of diabetes and screening and preventative measures) Dates Covered & Assessment: - 12/05/22; 3- 04/03/23; - 08/07/23; Lifestyle and Healthy Coping (Describe life style and healthy coping strategies to promote diabetes self-management) Dates Covered & Assessment: - 12/05/22; 4- 04/03/23; 4- 08/07/23; Diabetes Distress and Support (Recognize diabetes Distress and be able to identify support options) Dates Covered & Assessment: - 12/05/22; 2- 04/03/23; - 08/07/23; HEALTH GOAL #1: In order to meet this goal, I will: Continue current doses of U500 insulin. HEALTH GOAL #2: In order to meet this goal, I will: Continue to check glucose with Bhargav 2 sensor. Clinical or Quality of Life outcome baseline: FUTURE APPOINTMENTS: 09/04/2023 10:00 NHM/ENDOCRINE 09/05/2023 09:00 COM CARE-ORTHO SURGICAL 09/09/2023 14:00 CWM/SO/SLEEP DME/WITH EDU 10/04/2023 11:00 CWM/NO/PACT 7 DM type is : Type 2 diabetes Length of Visit: 60 minutes /skinny/ MAURO VANCE, RN,BSN, [facility] PROCESS COORDINATOR, RN Signed: 08/07/2023 14:55 11/15/2023 ADDENDUM STATUS: COMPLETED Dr. Velasco, is coming in next week and it was noted in my July appt that he would be a good candidate for the Bhargav 3 sensor. Do you think this would be a good idea? Billing And Insurance Coordinator will place RXs for both if you sign off on them. Thank you. /eusebio VANCE, RN,BSN, [facility] PROCESS COORDINATOR, RN Signed: 11/15/2023 09:13 Receipt Acknowledged By: 11/15/2023 09:20 /eusebio VELASCO MD STAFF PHYSICIAN 11/15/2023 ADDENDUM STATUS: COMPLETED Agree with update to bhargav 3, thanks /eusebio VELASCO MD STAFF PHYSICIAN Signed: 11/15/2023 09:21 MAURO VANCE
--- OUTSIDE RECORDS SUMMARY | 2024-05-29 10:27 | XMS_ITS | Encounter Summary ---
Author Name [facility] [place] [facility] [place] Organization [facility] [place] Address [address] [place] [address] Care Team Providers Care Operations Processor Name Role Phone STACEY HORTON Primary Care [...] STAND YON SELF May 29, [phone] [id number] [phone] Abdullahi SEVERINO PATIENT MEDICARE (WNR) MEDICARE (M) PART B Jul 18, 2012 PART B [id number] [phone] Abdullahi SEVERINO PATIENT MEDICARE (WNR) MEDICARE (M) PART B Jul 18, 2012 PART B [id number] Abdullahi SEVERINO PATIENT MEDICARE (WNR) MEDICARE (M) PART B Jul 18, 2012 PART B [id number] Abdullahi SEVERINO PATIENT MEDICARE (WNR) MEDICARE (M) PART A Dec 19, 2011 PART A [id number] Abdullahi SEVERINO PATIENT MEDICARE (WNR) MEDICARE (M) PART A Dec 19, 2011 PART A [id number] [phone] Abdullahi SEVERINO PATIENT MEDICARE (WNR) MEDICARE (M) PART A Dec 19, 2011 PART A [id number] [phone] Abdullahi SEVERINO PATIENT Selected Encounter This section includes the information on record at CT for the Encounter. Date/Time Encounter Type Encounter Description Reason Pro vider Source Aug 23, 2023 03:04 PM Outpatient Encounter TELEPHONE PRIMARY CARE IHE Encounter Template Text not used by CT Plan of Treatment: Future Appointments (+ 6 months) and Future Tests (+/- 45 days) The Plan of Treatment section includes future care activities for the patient from all [place] treatmentfacilities. This section includes future appointments and future orders which are active, pending or scheduled. Future Appointments This section includes appointments that were scheduled to occur 6 months from the date of the Encounter, up to a maximum of 20 appointments. The data comes from all [place] treatment facilities. Appointment Date/Time Appointment Type Appointme nt Facility Name Sep 04, 2023 10:00 AM AMBULATORY - MEDICINE [facility] [place] [facility] Sep 04, 2023 11:00 AM AMBULATORY - MEDICINE [facility] [place] [facility] Sep 05, 2023 09:00 AM AMBULATORY - MEDICINE CT [facility] [place] [facility] Sep 09, 2023 02:00 PM AMBULATORY - NONE [facility] [place] [facility] September 23, 2023 11:30 AM AMBULATORY - MEDICINE CT [facility] [place] [facility] October 04, 2023 11:00 AM AMBULATORY - MEDICINE CT [facility] [place] [facility] Nov 20, 2023 10:00 AM [facility] Dec 05, 2023 10:30 AM AMBULATORY - MEDICINE [facility] [facility] Dec 25, 2023 01:00 PM [place]IC[place] Dec 26, 2023 10:45 AM AMBULATORY - NONE [place] [facility] [place] [facility] Dec 31, 2023 08:00 AM AMBULATORY - MEDICINE [facility] [place] [facility] Jan 17, 2024 08:00 AM [facility] Feb 17, 2024 11:00 AM [facility] Lab Results: +/- 30 days of the encounter This section includes the Chemistry and Hematology Lab Results on record with CT for the patient. Radiology Reports and Pathology Reports are provided separately, in subsequent sections. Lab Results This section contains the Chemistry/Hematology Results that were resulted 30 days before or 30 daysafter the date of the Encounter. Date/Time Source Result Type Result - Unit Interpretation Reference Range Comment Aug 16, 2023 07:56 AM [facility] MICROALBUMIN CREATININE RATIO PANEL Specimen Type: URINE No comment entered. Ordering Provider: DEISY VELASCO Report Released Date/Time: May 29, 2023 12:04 PM Reporting Lab: [address] [address] Performing Lab: [address] [address] MICROALBUMIN/C REATININE RATIO 111.2 mg/g H 0-29.9 MICROALBUMIN,Q UANTITATIVE 9.3 mg/dL RR UNAVAIL CREATININE URINE 83.60 mg/dL Aug 16, 2023 07:56 AM [facility] HEMOGLOBIN A1C PANEL Specimen Type: BLOOD Comment: [...] May 29, 2023 12:04 PM Reporting Lab: [address] [address] Performing Lab: [address] [address] HEMOGLOBIN A1C 7.3 H 4.0-5.6 Aug 16, 2023 07:56 AM [facility] LIPID PANEL FASTING Specimen Type: SERUM No comment entered. Ordering Provider: DEISY VELASCO Report Released Date/Time: May 29, 2023 12:04 PM Reporting Lab: [facility] [address] [facility] [address] Performing Lab: [address] [address] CHOLESTEROL 122 mg/dL TRIGLYCERIDE 399 mg/dL H 0-150 LDL calculated Reflex to dLD L mg/dL 0-129 CHOL/HDL 3.9 HDL CHOLESTEROL 31 mg/dL L 40-60 LDL DIRECT 45 mg/dL Aug 16, 2023 07:56 AM [facility] BASIC METABOLIC PANEL (fasting) Specimen Type: SERUM No comment entered. Ordering Provider: DEISY VELASCO Report Released Date/Time: May 29, 2023 12:04 PM Reporting Lab: [address] [address] Performing Lab: [address] [address] UREA NITROGEN 17 mg/dL 7-25 GLUCOSE 162 [...] and tobacco- related health factors from the CT facility where the Encounter took place. Current Smoking Status This section includes the most current smoking, or tobacco-related health factor, from the [place] facility where the Encounter took place. Date/Time Current Smoking Status Comment Therese bernstein Apr 05, 2023 11:30 AM VA-TOBACCO FORMER USER [facility] Tobacco Use History This section includes a history of the smoking, or tobacco-related health factors, that were collected on or before the date of the Encounter. The data comes from the [place] facility where the Encounter took place. Date/Time Smoking Status/Tobac co Use Comment Facility Apr 05, 2023 11:30 AM VA-TOBACCO QUIT [address] [facility] [place] [facility] Dec 28, 2021 09:30 AM VA-TOBACCO FORMER USER [place] [facility] [place] [facility] Dec 28, 2021 09:30 AM VA-TOBACCO QUIT [address] [facility] [place] [facility] Dec 02, 2020 09:00 AM VA-TOBACCO FORMER USER [place] [facility] [place] [facility] Dec 02, 2020 09:00 AM VA-TOBACCO QUIT [address] [facility] [place] [facility] Aug 18, 2019 03:19 PM VA-TOBACCO FORMER USER CT [facility] [place] [facility] Aug 18, 2019 03:19 PM VA-TOBACCO QUIT [address] [facility] [place] [facility] September 23, 2018 09:58 AM VA-TOBACCO FORMER USER CT [facility] [place] [facility] September 23, 2018 09:58 AM VA-TOBACCO QUIT [address] [facility] [place] [facility] September 30, 2017 09:20 AM QUIT TOBACCO USE > [address] [facility] [place] [facility] Aug 20, 2016 09:17 AM QUIT TOBACCO USE > 7 YEARS AGO [address] [facility] [place] [facility] Jun 27, 2016 09:45 AM CURRENT SMOKER Quit [address] [facility] [place] [facility] Apr 18, 2015 09:06 AM QUIT TOBACCO USE > 7 YEARS AGO quit [place] [address] [place] [facility] [place] [facility] Mar 21, 2005 10:12 AM [address] OF SMOKING CT [facility] [place] [facility] Mar 21, 2005 10:12 AM QUIT TOBACCO USE > [address] [facility] [place] [facility] Advance Directives: All historical and current Section Date Range: From patient's date of to the date document was created. This section includes ALL of a patient's completed or amended CT Advance and Rescinded Directives. The entries below indicate that a directive exists for the patient, but an actual copy is not included with this document. The data comes from all CT facilities. Date Advance Directives Provider Source Feb 04, 2019 ADVANCE DIRECT[address] CESAR LUA [place] [facility] [place] [facility] Encounter Notes: All associated encounter notes This section contains the clinical notes associated to the Encounter. Date/Time Encounter Note(s) Provider Source Aug 23, 2023 03:06 PM CARE COORDINATION HOME TELEHEALTH NOTE: LOCAL TITLE: HT NOTE STANDARD TITLE: CARE COORDINATION HOME TELEHEALTH NOTE DATE OF NOTE: AUG 23, 2023@15:06 ENTRY DATE: AUG 23, 2023@15:06:37 AUTHOR: COSTA PURVIS EXP COSIGNER: URGENCY: STATUS: COMPLETED [place] is actively enrolled in the Home Telehealth program. Review of data shows the following out of range responses: CARL SEVERINO (-[id number]) Vital Sign for: 07/25/2023 - 08/23/2023 (All times are EST; All weights are lbs) Primary DMP: DM Comorbid(s): HTN Summary Weight Sys BP Krishnamurthy BP HR Glu Pain High 187 97 83 235 5 Low 108 51 44 85 5 Average 144 69 60 165 5.0 Date Time Wt Time Sys Krishnamurthy HR Time Glu Time Pain = 08/23/2023 08:12 151/65 51 08:00 159 08/22/2023 20:02 168/74 56 - 08/22/2023 17:11 165/73 56 17:02 85 08/21/2023 07:42 148/71 51 07:24 170 08/20/2023 10:10 144/66 47 10:00 167 08/19/2023 08:05 139/51 44 07:50 91 08/16/2023 12:29 159/73 64 12:20 137 08/15/2023 14:13 159/74 55 - 08/15/2023 10:55 146/63 48 10:45 160 08/15/2023 09:47 151/64 52 09:32 181 08/14/2023 14:40 163/73 51 14:10 222 08/13/2023 07:37 132/70 52 07:28 137 08/12/2023 13:20 132/64 56 13:07 220 08/11/2023 11:23 140/67 57 11:14 157 08/10/2023 13:43 144/78 55 13:30 146 08/09/2023 10:07 108/71 68 09:59 210 08/08/2023 11:07 120/75 70 11:00 167 08/07/2023 08:19 157/75 64 08:09 235 08/06/2023 12:16 128/68 79 12:09 181 08/05/2023 15:09 151/76 63 15:00 138 08/04/2023 11:50 126/66 71 11:41 149 08/03/2023 13:09 187/97 83 13:08 141 08/03/2023 12:06 177/80 80 - 08/03/2023 - - 12:02 222 08/02/2023 08:02 141/71 59 07:43 160 08/01/2023 06:55 123/69 61 06:47 170 07/31/2023 09:54 130/61 61 09:40 173 07/30/2023 08:39 132/58 63 08:10 168 07/29/2023 07:58 130/60 56 07:44 207 07/28/2023 - 61 12:34 160 07/27/2023 07:39 137/67 63 07:15 133 07/26/2023 08:45 134/59 55 08:10 98 07/25/2023 14:16 130/69 67 14:03 211 14:14 5 Source: [employer]; [employer] TYPE OF ENCOUNTER: Telephone Length of call: 5-10 minutes /skinny/ COSTA TOLLIVER MSN, RN, CNL RPM-HOME TELEHEALTH Signed: 08/23/2023 15:06 COSTA PURVIS [facility]
--- OUTSIDE RECORDS SUMMARY | 2024-05-29 10:27 | XMS_ITS | Encounter Summary ---
Author Name [facility] [place] [facility] [place] Address [address] [place] [address] Care Team Providers Care Snowmobile Mechanic Name Role Phone STACEY HORTON [facility] Insurance Providers: All historical and [...] STAND YON SELF May 29, [phone] [id number] [phone] Abdullahi SEVERINO PATIENT MEDICARE (WNR) MEDICARE (M) PART B Jul 18, 2012 PART B [id number] [phone] Abdullahi SEVERINO PATIENT MEDICARE (WNR) MEDICARE (M) PART B Jul 18, 2012 PART B [id number] [phone] Abdullahi SEVERINO PATIENT MEDICARE (WNR) MEDICARE (M) PART B Jul 18, 2012 PART B [id number] Abdullahi SEVERINO PATIENT MEDICARE (WNR) MEDICARE (M) PART A Dec 19, 2011 PART A [id number] Abdullahi SEVERINO PATIENT MEDICARE (WNR) MEDICARE (M) PART A Dec 19, 2011 PART A [id number] Abdullahi SEVERINO PATIENT MEDICARE (WNR) MEDICARE (M) PART A Dec 19, 2011 PART A [id number] [phone] Abdullahi SEVERINO PATIENT Selected Encounter This section includes the information on record at [place] for the Encounter. Date/Time Encounter Type Encounter Description Reason Provider Source Jul 26, 2023 04:09 PM POS AIRWAY PRESSURE CPAP TELEPHONE/MEDICIN E ICD-10-CM G47.33 Obstructive sleep apnea (adult) (pediatric) LIONEL HUTCHINSON [facility] Encounter Template Text not used by [place] Assessments - Encounter Diagnoses This section includes the primary and secondary diagnoses documented for the Encounter. Date/Time Primary/Secondary Diagnosis Diagnosis Name Provider Source Jul 26, 2023 04:09 PM PRIMARY Obstructive sleep apnea (adult) (pediatric) LIONEL HUTCHINSON [place] [facility] [place] [facility] Plan of Treatment: Future Appointments (+ 6 months) and Future Tests (+/- 45 days) The Plan of Treatment section includes future care activities for the [facility] [place] [facility] This section includes future appointments and future orders which are active, pending or scheduled. Future Appointments This section includes appointments that were scheduled to occur 6 months from the date of the Encounter, up to a maximum of 20 appointments. The data comes from all [place] treatment facilities. Appointment Date/Time Appointment Type Appointme nt Facility Name Aug 07, 2023 10:00 AM [facility] Sep 04, 2023 10:00 AM AMBULATORY - MEDICINE [place] [facility] [place] [facility] Sep 04, 2023 11:00 AM AMBULATORY - MEDICINE [place] [facility] [place] [facility] Sep 05, 2023 09:00 AM AMBULATORY - MEDICINE [place] [facility] [place] [facility] Sep 09, 2023 02:00 PM AMBULATORY - NONE [place] [facility] [facility] September 23, 2023 11:30 AM AMBULATORY - MEDICINE [place] [facility] [place] [facility] October 04, 2023 11:00 AM AMBULATORY - MEDICINE [place] [facility] [place] [facility] Nov 20, 2023 10:00 AM AMBULATORY - MEDICINE [facility] Dec 05, 2023 10:30 AM AMBULATORY - MEDICINE [place] [facility] [place] [facility] Dec 25, 2023 01:00 PM AMBULATORY - MEDICINE [facility] Dec 26, 2023 10:45 AM AMBULATORY - NONE [place] [facility] Dec 31, 2023 08:00 AM [facility] Jan 17, 2024 08:00 AM AMBULATORY - MEDICINE [place] C [facility] Lab Results: +/- 30 days of the encounter This section includes the Chemistry and Hematology Lab Results on record with [place] for the patient. Radiology Reports and Pathology Reports are provided separately, in subsequent sections. Lab Results This section contains the Chemistry/Hematology Results that were resulted 30 days before or 30 daysafter the date of the Encounter. Date/Time Source Result Type Result - Unit Interpretation Reference Range Comment Aug 16, 2023 07:56 AM [facility] MICROALBUMIN CREATININE RATIO PANEL Specimen Type: URINE No comment entered. Ordering Provider: DEISY VELASCO Report Released Date/Time: May 29, 2023 12:04 PM Reporting Lab: [facility] [address] [facility] [address] Performing Lab: [facility] [address] [facility] [address] MICROALBUMIN/C REATININE RATIO 111.2 mg/g H 0-29.9 MICROALBUMIN,Q UANTITATIVE 9.3 mg/dL RR UNAVAIL CREATININE URINE 83.60 mg/dL Aug 16, 2023 07:56 AM [facility] LIPID PANEL FASTING Specimen Type: SERUM No comment entered. Ordering Provider: DEISY VELASCO Report Released Date/Time: May 29, 2023 12:04 PM Reporting Lab: [facility] [address] [facility] [address] Performing Lab: [facility] [address] [facility] [address] CHOLESTEROL 122 mg/dL TRIGLYCERIDE 399 mg/dL H 0-150 LDL calculated Reflex to dLD L mg/dL 0-129 CHOL/HDL 3.9 HDL CHOLESTEROL 31 mg/dL L 40-60 LDL DIRECT 45 mg/dL Aug 16, 2023 07:56 AM [facility] HEMOGLOBIN A1C PANEL Specimen Type: BLOOD [...] May 29, 2023 12:04 PM Reporting Lab: [address] [address] Performing Lab: [address] [address] HEMOGLOBIN A1C 7.3 H 4.0-5.6 Aug 16, 2023 07:56 AM [facility] BASIC METABOLIC PANEL (fasting) Specimen Type: SERUM No comment entered. Ordering Provider: DEISY VELASCO Report Released Date/Time: May 29, 2023 12:04 PM Reporting Lab: [address] [address] Performing Lab: [address] [address] UREA NITROGEN 17 mg/dL 7-25 GLUCOSE 162 [...] and tobacco- related health factors from the [place] facility where the Encounter took place. Current Smoking Status This section includes the most current smoking, or tobacco-related health factor, from the [place] facility where the Encounter took place. Date/Time Current Smoking Status Comment Facil day Apr 05, 2023 11:30 AM VA-TOBACCO FORMER USER [place] [facility] [place] [facility] Tobacco Use History This section includes a history of the smoking, or tobacco-related health factors, that were collected on or before the date of the Encounter. The data comes from the [place] facility where the Encounter took place. Date/Time Smoking Status/Tobac co Use Comment Facility Apr 05, 2023 11:30 AM VA-TOBACCO QUIT 15 YRS OR MORE [place] [facility] [place] [facility] Dec 28, 2021 09:30 AM VA-TOBACCO FORMER USER [place] [facility] [facility] Dec 28, 2021 09:30 AM VA-TOBACCO QUIT 15 YRS OR MORE [place] [facility] [facility] Dec 02, 2020 09:00 AM VA-TOBACCO FORMER USER [place] [facility] [facility] Dec 02, 2020 09:00 AM VA-TOBACCO QUIT 15 YRS OR MORE [place] [facility] [place] [facility] Aug 18, 2019 03:19 PM VA-TOBACCO FORMER USER [place] [facility] [facility] Aug 18, 2019 03:19 PM VA-TOBACCO QUIT 15 YRS OR MORE [place] [facility] [facility] September 23, 2018 09:58 AM VA-TOBACCO FORMER USER [place] [facility] [facility] September 23, 2018 09:58 AM VA-TOBACCO QUIT 15 YRS OR MORE [place] [facility] [facility] September 30, 2017 09:20 AM QUIT TOBACCO USE > 7 YEARS AGO [place] [facility] [facility] Aug 20, 2016 09:17 AM QUIT TOBACCO USE > 7 YEARS AGO quit 1991 [place] [facility] [place] [facility] Jun 27, 2016 09:45 AM CURRENT SMOKER Quit 25 years ago [place] [facility] [place] [facility] Apr 18, 2015 09:06 AM QUIT TOBACCO USE > 7 YEARS AGO quit in 1991 [place] [facility] [place] [facility] Mar 21, 2005 10:12 AM HISTORY OF SMOKING [place] [facility] [facility] Mar 21, 2005 10:12 AM QUIT TOBACCO USE > 7 YEARS AGO [place] [facility] [facility] Advance Directives: All historical and current Section Date Range: From patient's date of to the date document was created. This section includes ALL of a patient's completed or amended [place] Advance and Rescinded Directives. The entries below indicate that a directive exists for the patient, but an actual copy is not included with this document. The data comes from all [place] facilities. Date Advance Directives Provider Source Feb 04, 2019 ADVANCE DIRECTIVE CESAR LUA [place] [facility] [place] [facility] Encounter Notes: All associated encounter notes This section contains the clinical notes associated to the Encounter. Date/Time Encounter Note(s) Provider Source Jul 30, 2023 01:27 PM ADDENDUM: LOCAL TITLE: Addendum STANDARD TITLE: ADDENDUM DATE OF NOTE: JUL 30, 2023@13:27:17 ENTRY DATE: JUL 30, 2023@13:27:19 AUTHOR: SHONDA HOOKER COSIGNER: URGENCY: STATUS: COMPLETED [place] requesting CB from RT, states RT was able to troubleshoot over the phone last time the issue happened. F2F appt booked for 09/08 as a second option. Please call to assist, phone number verified. Thank you! /skinny/ SHONDA PIEDRA Signed: 07/30/2023 13:28 Receipt Acknowledged By: 08/01/2023 10:08 /skinny/ JOHNNY BOLANOS BA, TAPER AND FLOATER, RP RESPIRATORY THERAPIST 07/31/2023 13:24 /skinny/ LIONEL HUTCHINSON CRT RESPIRATORY THERAPIST ==== --- Original Document --- 07/26/23 RESPIRATORY THERAPY NOTE(BLANK): Telephone Coding and Documentation: Diagnosis: Sleep Apnea Time spent with Patient via telephone: 6 minutes. contacted respiratory with complaint his cpap still isn't working. He has a very large leak but he isn't able to figure out where the leak is coming from and would like to come into clinic to have it looked at. /skinny/ LIONEL HUTCHINSON CRT RESPIRATORY THERAPIST Signed: 07/26/2023 16:14 07/26/2023 ADDENDUM STATUS: COMPLETED RTC placed /skinny/ LIONEL HUTCHINSON CRT RESPIRATORY THERAPIST Signed: 07/26/2023 16:15 Receipt Acknowledged By: 07/30/2023 13:21 /eusebio HOOKER AMSA 07/31/2023 ADDENDUM STATUS: COMPLETED Attempted to contact [place] and left message. He has an appointment scheduled on 09/08. /eusebio HUTCHINSON CRT RESPIRATORY THERAPIST Signed: 07/31/2023 13:26 SHONDA HOOKER KOUTS Jul 26, 2023 04:15 PM ADDENDUM: LOCAL TITLE: Addendum STANDARD TITLE: ADDENDUM DATE OF NOTE: JUL 26, 2023@16:15:03 ENTRY DATE: JUL 26, 2023@16:15:04 AUTHOR: LIONEL HUTCHINSON EXP COSIGNER: URGENCY: STATUS: COMPLETED RTC placed /skinny/ LIONEL HUTCHINSON CRT RESPIRATORY THERAPIST Signed: 07/26/2023 16:15 Receipt Acknowledged By: 07/30/2023 13:21 /skinny/ SHONDA OHOKER AMSA ==== --- Original Document --- 07/26/23 RESPIRATORY THERAPY NOTE(BLANK): Telephone Coding and Documentation: Diagnosis: Sleep Apnea Time spent with Patient via telephone: 6 minutes. [place] contacted respiratory with complaint his cpap still isn't working. He has a very large leak but he isn't able to figure out where the leak is coming from and would like to come into clinic to have it looked at. /eusebio HUTCHINSON CRT RESPIRATORY THERAPIST Signed: 07/26/2023 16:14 LIONEL HUTCHINSON KOUTS Jul 26, 2023 04:11 PM RESPIRATORY THERAP Y NOTE: LOCAL TITLE: RESPIRATORY THERAPY NOTE(BLANK) STANDARD TITLE: RESPIRATORY THERAPY NOTE DATE OF NOTE: JUL 26, 2023@16:11 ENTRY DATE: JUL 26, 2023@16:11:07 AUTHOR: LIONEL HUTCHINSON EXP COSIGNER: URGENCY: STATUS: COMPLETED RESPIRATORY THERAPY NOTE(BLANK) Has ADDENDA Telephone Coding and Documentation: Diagnosis: Sleep Apnea Time spent with Patient via telephone: 6 minutes. contacted respiratory with complaint his cpap still isn't working. He has a very large leak but he isn't able to figure out where the leak is coming from and would like to come into clinic to have it looked at. /skinny/ LIONEL HUTCHINSON CRT RESPIRATORY THERAPIST Signed: 07/26/2023 16:14 07/26/2023 ADDENDUM STATUS: COMPLETED RTC placed /skinny/ LIONEL HUTCHINSON CRT RESPIRATORY THERAPIST Signed: 07/26/2023 16:15 Receipt Acknowledged By: 07/30/2023 13:21 /eusebio PIEDRA 07/30/2023 ADDENDUM STATUS: COMPLETED requesting CB from RT, states RT was able to troubleshoot over the phone last time the issue happened. F2F appt booked for 09/08 as a second option. Please call to assist, phone number verified. Thank you! /eusebio PIEDRA Signed: 07/30/2023 13:28 Receipt Acknowledged By: * AWAITING SIGNATURE * JOHNNY BOLANOS 07/31/2023 13:24 /eusebio HUTCHINSON CRT RESPIRATORY THERAPIST 07/31/2023 ADDENDUM STATUS: COMPLETED Attempted to contact and left message. He has an appointment scheduled on 09/08. /skinny/ LIONEL HUTCHINSON CRT RESPIRATORY THERAPIST Signed: 07/31/2023 13:26 LIONEL HUTCHINSON
--- OUTSIDE RECORDS SUMMARY | 2024-05-29 10:27 | XMS_ITS | Encounter Summary ---
Author Name [facility] [place] [facility] [place] [facility] [place] Address [address] [place] [address] Care Team Providers Care Buckle Stringer Name Role Phone STACEY AGGARWAL [facility] Insurance Providers: All historical and [...] STAND YON SELF May 29, [phone] [id number] Abdullahi SEVERINO PATIENT MEDICARE (WNR) MEDICARE (M) PART B Jul 18, 2012 PART B [id number] Abdullahi SEVERINO PATIENT MEDICARE (WNR) MEDICARE (M) PART B Jul 18, 2012 PART B [id number] Abdullahi SEVERINO PATIENT MEDICARE (WNR) MEDICARE (M) PART B Jul 18, 2012 PART B [id number] [phone] Abdullahi SEVERINO PATIENT MEDICARE (WNR) MEDICARE (M) PART A Dec 19, 2011 PART A [id number] Abdullahi SEVERINO PATIENT MEDICARE (WNR) MEDICARE (M) PART A Dec 19, 2011 PART A [id number] [phone] Abdullahi SEVERINO PATIENT MEDICARE (WNR) MEDICARE (M) PART A Dec 19, 2011 PART A [id number] Abdullahi SEVERINO PATIENT Selected Encounter This section includes the information on record at [place] for the Encounter. Date/Time Encounter Type Encounter Description Reason Provider Source Jul 24, 2023 12:43 PM HC PRO PHONE CALL 5-10 MIN TELEPHONE/MEDICIN E ICD-10-CM I10 Essential (primary) hypertension KRISTIE LORD [facility] Encounter Template Text not used by [place] Assessments - Encounter Diagnoses This section includes the primary and secondary diagnoses documented for the Encounter. Date/Time Primary/Secondary Diagnosis Diagnosis Name Provider Source Jul 24, 2023 12:43 PM PRIMARY Essential (primary) hypertension [facility] [place] [facility] Jul 24, 2023 12:43 PM SECONDARY Type 2 diabetes mellitus without complications RISA[facility] [place] [facility] Plan of Treatment: Future Appointments [...] 07, 2023 10:00 AM AMBULATORY - MEDICINE [facility] Sep 04, 2023 10:00 AM AMBULATORY - MEDICINE [facility] [place] [facility] Sep 04, 2023 11:00 AM AMBULATORY - MEDICINE [facility] [place] [facility] Sep 05, 2023 09:00 AM AMBULATORY - MEDICINE [facility] [place] [facility] Sep 09, 2023 02:00 PM AMBULATORY - NONE [facility] [place] [facility] September 23, 2023 11:30 AM AMBULATORY - MEDICINE [facility] [place] [facility] October 04, 2023 11:00 AM AMBULATORY - MEDICINE [facility] [place] [facility] Nov 20, 2023 10:00 AM [facility]ULAT[facility] - [facility]ICINE [facility] Dec 05, 2023 10:30 AM AMBULATORY - MEDICINE [facility] [place] [facility] Dec 25, 2023 01:00 PM [facility] - [facility]IC[facility] Dec 26, 2023 10:45 AM AMBULATORY - NONE [facility] [place] [facility] Dec 31, 2023 08:00 AM AMBULATORY - MEDICINE [facility] [place] [facility] Jan 17, 2024 08:00 AM AMBULATORY - MEDICINE [facility] [place] [facility] Lab Results: +/- 30 days of the encounter This section includes the Chemistry and Hematology Lab Results on record with [facility] for the patient. Radiology Reports and Pathology Reports are provided separately, in subsequent sections. Lab Results This section contains the Chemistry/Hematology Results that were resulted 30 days before or 30 daysafter the date of the Encounter. Date/Time Source Result Type Result - Unit Interpretation Reference Range Comment Aug 16, 2023 07:56 [facility] [place] [facility] MICROALBUMIN CREATININE RATIO PANEL Specimen Type: URINE No comment entered. Ordering Provider: DEISY VELASCO Report Released Date/Time: May 29, 2023 12:04 PM Reporting Lab: [facility] [place] [facility] [address] [facility] [address] Performing Lab: [facility] [place] [facility] [address] [facility] [address] MICROALBUMIN/C REATININE RATIO 111.2 mg/g H 0-29.9 MICROALBUMIN,Q UANTITATIVE 9.3 mg/dL RR UNAVAIL CREATININE URINE 83.60 mg/dL Aug 16, 2023 07:56 AM [facility] [place] [facility] LIPID PANEL FASTING Specimen Type: SERUM No comment entered. Ordering Provider: DEISY VELASCO Report Released Date/Time: May 29, 2023 12:04 PM Reporting [facility] [place] [facility] [address] [facility] [address] Performing [facility]: [facility] [address] [facility] [address] CHOLESTEROL 122 mg/dL TRIGLYCERIDE 399 mg/dL H 0-150 LDL calculated Reflex to dLD L mg/dL 0-129 CHOL/HDL 3.9 HDL CHOLESTEROL 31 mg/dL L 40-60 LDL DIRECT 45 mg/dL Aug 16, 2023 07:56 AM [facility] HEMOGLOBIN A1C PANEL Specimen Type: BLOOD [...] May 29, 2023 12:04 PM Reporting Lab: [address] [address] Performing Lab: [address] [address] HEMOGLOBIN A1C 7.3 H 4.0-5.6 Aug 16, 2023 07:56 AM [facility] BASIC METABOLIC PANEL (fasting) Specimen Type: SERUM No comment entered. Ordering Provider: DEISY VELASCO Report Released Date/Time: May 29, 2023 12:04 PM Reporting Lab: [address] [address] Performing Lab: [address] [address] UREA NITROGEN 17 mg/dL 7-25 GLUCOSE 162 [...] place. Date/Time Current Smoking Status Comment [facility] Apr 05, 2023 11:30 AM VA-TOBACCO QUIT 15 YRS OR MORE [facility] [place] [facility] Tobacco Use History This section includes a history of the smoking, or tobacco-related health factors, that were collected on or before the date of the Encounter. The data comes from the [place] facility where the Encounter took place. Date/Time Smoking Status/Tobac co Use Comment Facility Apr 05, 2023 11:30 AM VA-TOBACCO QUIT 15 YRS OR MORE [facility] [place] [facility] Dec 28, 2021 09:30 AM VA-TOBACCO FORMER USER [facility] [place] [facility] Dec 28, 2021 09:30 AM VA-TOBACCO QUIT 15 YRS OR MORE [facility] [place] [facility] Dec 02, 2020 09:00 AM VA-TOBACCO FORMER USER [facility] [place] [facility] Dec 02, 2020 09:00 AM VA-TOBACCO QUIT 15 YRS OR MORE [facility] [place] [facility] Aug 18, 2019 03:19 PM VA-TOBACCO FORMER USER [facility] [place] [facility] Aug 18, 2019 03:19 PM VA-TOBACCO QUIT 15 YRS OR MORE [facility] [place] [facility] September 23, 2018 09:58 AM VA-TOBACCO FORMER USER [facility] [place] [facility] September 23, 2018 09:58 AM VA-TOBACCO QUIT 15 YRS OR MORE [facility] [place] [facility] September 30, 2017 09:20 AM QUIT TOBACCO USE > 7 YEARS AGO [facility] [place] [facility] Aug 20, 2016 09:17 AM QUIT TOBACCO USE > 7 YEARS AGO quit 1991 [facility] [place] [facility] Jun 27, 2016 09:45 AM CURRENT SMOKER Quit 25 years ago [facility] [place] [facility] Apr 18, 2015 09:06 AM QUIT TOBACCO USE > 7 YEARS AGO quit in 1991 [facility] [place] [facility] Mar 21, 2005 10:12 AM HISTORY OF SMOKING [facility] [place] [facility] Mar 21, 2005 10:12 AM QUIT TOBACCO USE > 7 YEARS AGO [facility] Advance Directives: All historical and current [...] Feb 04, 2019 ADVANCE DIRECTIVE CESAR LUA [facility] Encounter Notes: All associated encounter notes This section contains the clinical notes associated to the Encounter. Date/Time Encounter Note(s) Provider Source Jul 24, 2023 12:43 PM CARE COORDINATION HOME TELEHEALTH FOLLOW-UP NOTE: LOCAL TITLE: HT INTERVENTION NOTE STANDARD TITLE: CARE COORDINATION HOME TELEHEALTH FOLLOW-UP NOTE DATE OF NOTE: JUL 24, 2023@12:43 ENTRY DATE: JUL 24, 2023@12:44:01 AUTHOR: TOÑO LORD EXP COSIGNER: URGENCY: STATUS: COMPLETED HT INTERVENTION NOTE Has ADDENDA is actively enrolled in the Home Telehealth program. Review of data shows the following out of range responses: Measurements: CARL SEVERINO (-[id number]) Vital Sign for: 06/25/2023 - 07/24/2023 (All times are EST; All weights are lbs) Primary DMP: DM Comorbid(s): HTN Summary Sys BP Krishnamurthy BP HR Glu Pain High 185 140 73 218 3 Low 97 42 48 103 3 Average 135 71 59 152 3.0 Date Time Sys Krishnamurthy HR Time Glu Time Pain ===== 07/24/2023 10:52 135/48 57 10:30 134 07/23/2023 08:32 117/60 60 08:26 119 07/22/2023 08:06 122/66 53 07:50 164 07/21/2023 14:36 136/67 68 13:35 191 07/20/2023 09:39 116/63 65 09:24 200 07/19/2023 12:54 97/76 73 12:10 168 07/18/2023 08:10 128/62 56 08:00 145 07/17/2023 09:10 119/68 55 09:00 210 07/17/2023 - - 06:08 150 07/16/2023 07:45 126/75 57 07:30 218 07/15/2023 07:55 112/69 59 07:45 124 07/14/2023 13:55 150/68 62 12:40 180 07/13/2023 08:22 148/80 52 08:15 121 07/12/2023 08:36 127/61 49 08:23 146 07/11/2023 11:20 133/70 49 11:10 145 07/10/2023 09:23 126/64 53 09:15 168 07/09/2023 09:50 154/81 57 09:40 180 07/08/2023 08:01 115/61 52 07:45 143 07/07/2023 07:40 123/60 48 07:31 103 07/06/2023 22:18 185/140 70 - 07/06/2023 21:01 168/83 70 - 07/06/2023 19:29 159/74 61 19:17 155 07/05/2023 07:05 150/69 60 07:00 156 07/04/2023 08:32 137/97 54 08:10 120 07/03/2023 11:54 129/72 54 11:45 160 07/02/2023 09:43 128/61 55 - 07/02/2023 08:30 152/77 65 08:12 131 07/01/2023 08:26 131/81 54 08:16 144 06/30/2023 14:50 115/42 67 14:40 122 06/30/2023 13:58 161/76 66 13:45 160 06/29/2023 17:08 160/68 64 17:02 139 06/28/2023 06:35 134/77 57 06:28 156 06/27/2023 08:55 131/63 56 08:42 160 06/26/2023 18:23 155/83 68 18:16 160 06/25/2023 08:16 117/68 62 - 06/25/2023 - - 07:15 105 07:30 3 Source: [facility], [employer]; [employer] CARL SEVERINO (-[id number]) Glucose Data for: 06/25/2023 - 07/24/2023 (All Times are EST) Primary DMP: DM Comorbid(s): HTN = Early AM Morning Midday Evening Night Summary 00:00-06:00 06:00-11:00 11:00-16:00 16:00-21:00 21:00-00:00 = High 218 191 160 Low 103 122 139 Average 150 161 151 Average All Readings: 152 = Early AM Morning Midday Evening Night Date 00:00-06:00 06:00-11:00 11:00-16:00 16:00-21:00 21:00-00:00 = 07/23 134 (10:30) 07/22 119 (08:26) 07/21 164 (07:50) 07/20 191 (13:35) 07/19 200 (09:24) 07/18 168 (12:10) 145 (08:00) 07/17 210 (09:00) 150 (06:08) 07/16 218 (07:30) 07/15 124 (07:45) 07/14 180 (12:40) 07/13 121 (08:15) 07/12 146 (08:23) 07/11 145 (11:10) 07/10 168 (09:15) 07/09 180 (09:40) 07/08 143 (07:45) 07/07 103 (07:31) 07/06 155 (19:17) 07/05 156 (07:00) 07/04 120 (08:10) 07/03 160 (11:45) 07/02 131 (08:12) 07/01 144 (08:16) 06/30 122 (14:40) 160 (13:45) 06/29 139 (17:02) 06/28 156 (06:28) 06/27 160 (08:42) 06/26 160 (18:16) 06/25 105 (07:15) Source: [facility]; [employer] HT ALERT: low diastolic pressure reading Leckrone answer to health question: Has not been instructed on what to do with low blood sugar levels Assessment: Spoke with Leckrone, identified by full name/. Reviewed above HT readings with [facility]. states I feel terrific but I am glad you called states I have been having some issues with my CPAP machine turning itself off. Leckrone plans to call Respiratory therapy for assistance. Teaching with for s/s of low BP. INcluding possible causes such as dehydration. states I think that may be the case since I had cramps in my calfs/thighs overnight Encouraged Leckrone to drink 6-8 galsses of water per day to remain hydrated. INstructed to monitor for increased swelling in lower extremities/abdomen, sob or chest pain. Instructed Leckrone to call 911 for all emergent medical issues and to contact Pact/HT CC with non urgent questions/concerns. Instructed Leckrone management of low BG levels below 70. Reviewed rule with Leckrone. Noted above readings no BG levels <70. Review of medication list does not appear to include glucagon or glucose tabs on hand in the event of a hypoglycemic event. Will alert Compensation Business Partner for review. Intervention(s)/Plan: Teach s/s of low DBP/dehydration/hypoglycem ia and interventions Encouraged to limit caffeine intake and to drink more water to remain well hydrated Encouraged to follow low sodium diet/consistant carb. CHoose healthy meals/snacks containing low sodium and Carbs 45- 60 gm carb per meal, 15 gm carb per snack Encouraged to complete daily exercise Leckrone to recheck vitals later today and transmit for review TYPE OF ENCOUNTER: Telephone Length of call: 5-10 minutes /skinny/ TOÑO LORD RN [facility]-Home Telehealth Phone Engineer Signed: 07/24/2023 13:41 Receipt Acknowledged By: 08/03/2023 11:21 /es/ DEISY VELASCO MD STAFF PHYSICIAN 07/24/2023 14:42 /es/ Stacey Aggarwal DNP, MANAGER FLORAL-BC, CNL Primary Care Nurse Practitioner 07/29/2023 ADDENDUM STATUS: COMPLETED CARL SEVERINO (-[id number]) Vital Sign for: 07/27/2023 - 07/29/2023 (All times are EST; All weights are lbs) Primary DMP: DM Comorbid(s): HTN Summary Sys BP Krishnamurthy BP HR Glu Pain High 157 134 63 207 Low 130 60 56 133 Average 141 87 60 167 Date Time Sys Krishnamurthy HR Time Glu Time Pain ===== 07/29/2023 07:58 130/60 56 07:44 207 07/28/2023 12:54 157/134 61 12:34 160 entered as error 07/27/2023 07:39 137/67 63 07:15 133 Source: [facility]; [employer] Phone call to Leckrone who reports the BP reading on 07/28/2023 was an error. He meant to recheck it, but got distracted. Vet states I feel great, no concerns. /es/ Emilee Redd RN,BSN C Registered Nurse Signed: 07/29/2023 16:33 TOÑO LORD [facility]
--- OUTSIDE RECORDS SUMMARY | 2024-05-29 10:27 | XMS_ITS | Encounter Summary ---
Author Name [facility] [place] [facility] [place] [facility] [place] Address [address] [place] [address] Care Team Providers Care Clock And Watch Hands Painter Name Role Phone STACEY AGGARWAL Primary [facility] Provider [facility] Insurance Providers: All historical and current Section [...] STAND YON SELF May 29, [phone] [id number] Abdullahi SEVERINO PATIENT MEDICARE (WNR) MEDICARE (M) PART B Jul 18, 2012 PART B [id number] Abdullahi SEVERINO PATIENT MEDICARE (WNR) MEDICARE (M) PART B Jul 18, 2012 PART B [id number] Abdullahi SEVERINO PATIENT MEDICARE (WNR) MEDICARE (M) PART B Jul 18, 2012 PART B [id number] Abdullahi SEVERINO PATIENT MEDICARE (WNR) MEDICARE (M) PART A Dec 19, 2011 PART A [id number] Abdullahi SEVERINO PATIENT MEDICARE (WNR) MEDICARE (M) PART A Dec 19, 2011 PART A [id number] Abdullahi SEVERINO PATIENT MEDICARE (WNR) MEDICARE (M) PART A Dec 19, 2011 PART A [id number] [phone] Abdullahi SEVERINO PATIENT Selected Encounter This section includes the information on record at [place] for the Encounter. Date/Time Encounter Type Encounter Description Reason Provider Source Aug 15, 2023 12:35 PM HC PRO PHONE CALL 5-10 MIN TELEPHONE/MEDICIN E ICD-10-CM I10 Essential (primary) hypertension VIVIANA PURVIS Afshin Encounter Template Text not used by [place] Assessments - Encounter Diagnoses This section includes the primary and secondary diagnoses documented for the Encounter. Date/Time Primary/Secondary Diagnosis Diagnosis Name Provider Source Aug 15, 2023 12:35 PM PRIMARY Essential (primary) hypertension [facility] PURVIS [facility] [place] [facility] Plan of Treatment: Future Appointments (+ 6 months) and Future Tests (+/- 45 days) The Plan of Treatment section includes future care activities for the patient from all [place] [facility]. This section includes future appointments and future [...] - MEDICINE [place] [facility] [place] [facility] Sep 04, 2023 11:00 AM AM[place]UL[place]IC[place] [facility] [place] [facility] Sep 05, 2023 09:00 AM AM[place]ULAT[place]IC[place] [facility] [place] [facility] Sep 09, 2023 02:00 PM AMBULATORY - NONE [place] [facility] [place] [facility] September 23, 2023 11:30 AM AM[place]ULATORY [place]ICINE [place] [facility] [place] [facility] October 04, 2023 11:00 AM AM[place]UL[place]IC[place] [facility] [place] [facility] Nov 20, 2023 10:00 AM AMBULATORY - [place]ICINE [place] Dec 05, 2023 10:30 AM AM[place]ULATORY [place]ICINE [place] [facility] [place] [facility] Dec 25, 2023 01:00 PM AMBULATORY - [place]IC[place] Dec 26, 2023 10:45 AM AMBULATORY - NONE [facility] [place] [facility] Dec 31, 2023 08:00 AM AM[place]UL[place]IC[place] [facility] [place] [facility] Jan 17, 2024 08:00 AM [place] [facility] Lab Results: +/- 30 days of the encounter This section includes the Chemistry and Hematology Lab Results on record with [place] for the patient. Radiology Reports and Pathology Reports are provided separately, in subsequent sections. Lab Results This section contains the Chemistry/Hematology Results that were resulted 30 days before or 30 daysafter the date of the Encounter. Date/Time Source Result Type Result - Unit Interpretation Reference Range Comment Aug 16, 2023 07:56 AM [facility] MICROALBUMIN CREATININE RATIO PANEL Specimen Type: URINE No comment entered. Ordering Provider: DEISY VELASCO Report Released Date/Time: May 29, 2023 12:04 PM Reporting Lab: [address] [address] Performing Lab: [address] [address] MICROALBUMIN/C REATININE RATIO 111.2 mg/g H 0-29.9 MICROALBUMIN,Q UANTITATIVE 9.3 mg/dL RR UNAVAIL CREATININE URINE 83.60 mg/dL Aug 16, 2023 07:56 AM [facility] HEMOGLOBIN A1C PANEL Specimen Type: BLOOD [...] May 29, 2023 12:04 PM Reporting Lab: [address] [address] Performing Lab: [address] [address] HEMOGLOBIN A1C 7.3 H 4.0-5.6 Aug 16, 2023 07:56 AM [facility] LIPID PANEL FASTING Specimen Type: SERUM No comment entered. Ordering Provider: DEISY VELASCO Report Released Date/Time: May 29, 2023 12:04 PM Reporting Lab: [address] [address] Performing Lab: [address] [address] CHOLESTEROL 122 mg/dL TRIGLYCERIDE 399 mg/dL H 0-150 LDL calculated Reflex to dLD L mg/dL 0-129 CHOL/HDL 3.9 HDL CHOLESTEROL 31 mg/dL L 40-60 LDL DIRECT 45 mg/dL Aug 16, 2023 07:56 AM [facility] BASIC METABOLIC PANEL (fasting) Specimen Type: SERUM No comment entered. Ordering Provider: DEISY VELASCO Report Released Date/Time: May 29, 2023 12:04 PM Reporting Lab: [address] [address] Performing Lab: [address] [address] UREA NITROGEN 17 mg/dL 7-25 GLUCOSE 162 [...] FORMER USER [facility] [place] [facility] Tobacco Use History This section includes a history of the smoking, or tobacco-related health factors, that were collected on or before the date of the Encounter. The data comes from the [place] facility where the Encounter took place. Date/Time Smoking Status/Tobac co Use Comment Facility Apr 05, 2023 11:30 AM VA-TOBACCO QUIT 15 YRS OR MORE [place] [facility] [place] [facility] Dec 28, 2021 09:30 AM VA-TOBACCO FORMER USER [facility] [place] [facility] Dec 28, 2021 09:30 AM VA-TOBACCO QUIT 15 YRS OR MORE [place] [facility] [place] [facility] Dec 02, 2020 09:00 AM VA-TOBACCO FORMER USER [place] [facility] [place] [facility] Dec 02, 2020 09:00 AM VA-TOBACCO QUIT 15 YRS OR MORE [place] [facility] [place] [facility] Aug 18, 2019 03:19 PM VA-TOBACCO FORMER USER [place] [facility] [place] [facility] Aug 18, 2019 03:19 PM VA-TOBACCO QUIT 15 YRS OR MORE [place] [facility] [place] [facility] September 23, 2018 09:58 AM VA-TOBACCO FORMER USER [place] [facility] [place] [facility] September 23, 2018 09:58 AM VA-TOBACCO QUIT 15 YRS OR MORE [place] [facility] [place] [facility] September 30, 2017 09:20 AM QUIT TOBACCO USE > 7 YEARS AGO [place] [facility] [place] [facility] Aug 20, 2016 09:17 AM QUIT TOBACCO USE > 7 YEARS AGO quit 1991 [place] [facility] [place] [facility] Jun 27, 2016 09:45 AM CURRENT SMOKER Quit 25 years ago [place] [facility] [place] [facility] Apr 18, 2015 09:06 AM QUIT TOBACCO USE > 7 YEARS AGO quit in 1991 [place] [facility] [place] [facility] Mar 21, 2005 10:12 AM HISTORY OF SMOKING [facility] [place] [facility] Mar 21, 2005 10:12 AM QUIT TOBACCO USE > 7 YEARS AGO [place] [facility] [place] [facility] Advance Directives: All historical and [...] DIRECTIVE CESAR LUA [place] [facility] Encounter Notes: All associated encounter notes This section contains the clinical notes associated to the Encounter. Date/Time Encounter Note(s) Provider Source Aug 19, 2023 10:55 AM ADDENDUM: LOCAL TITLE: Addendum STANDARD TITLE: ADDENDUM DATE OF NOTE: AUG 19, 2023@10:55:50 ENTRY DATE: AUG 19, 2023@10:55:51 AUTHOR: EMILEE REDDIGNER: URGENCY: STATUS: COMPLETED CARL SEVERINO (-[id number]) Vital Sign for: 08/13/2023 - 08/19/2023 (All times are EST; All weights are lbs) Primary DMP: DM Comorbid(s): HTN Summary Sys BP Krishnamurthy BP HR Glu Pain High 163 74 64 222 Low 132 51 44 91 Average 150 67 52 155 Date Time Sys Krishnamurthy HR Time Glu Time Pain ===== 08/19/2023 08:05 139/51 44 07:50 91 08/16/2023 12:29 159/73 64 12:20 137 08/15/2023 14:13 159/74 55 - 08/15/2023 10:55 146/63 48 10:45 160 08/15/2023 09:47 151/64 52 09:32 181 08/14/2023 14:40 163/73 51 14:10 222 08/13/2023 07:37 132/70 52 07:28 137 Source: [employer] [facility]; All[employer]aseS Omnivisor Pro System Bradycardia in Vet new to Metoprolol, was taking incorrect dose. Attempted to contact to assess bradycardia, ensure Vet is taking correct dose. No answer at phone number listed in CPRS. HIPAA compliant voice message left with this physician underwriter's name and contact information and request for return call, repeat vitals. A return call was not received. Will continue to monitor using HT/RPM services. /es/ Emilee Redd RN,BSN [facility] Registered Nurse Signed: 08/19/2023 16:27 Receipt Acknowledged By: 08/20/2023 07:52 /es/ Stacey Aggarwal DNP, TALENT SPECIALIST-BC, CNL Primary Care Nurse Practitioner --- Original Document --- 08/15/23 HT INTERVENTION NOTE: [place] is actively enrolled in the Home Telehealth program. Review of data shows the following out of range responses: CARL SEVERINO (-[id number]) Vital Sign for: 07/17/2023 - 08/15/2023 (All times are EST; All weights are lbs) Primary DMP: DM Comorbid(s): HTN Summary Sys BP Krishnamurthy BP HR Glu Pain High 187 97 83 235 5 Low 97 48 48 98 5 Average 135 68 62 171 5.0 Date Time Sys Krishnamurthy HR Time Glu Time Pain ===== 08/15/2023 10:55 146/63 48 10:45 160 08/15/2023 [...] 222 08/02/2023 08:02 141/71 59 07:43 160 07/17/2023 - - 06:08 150 Source: [employer]; Buzzoole Pro System Assessment/Interventions: [place] identified by full name and . Called to check in due to low HR of 48. Reviewed [place]'s BP medication. [place] thought he was supposed to take Metoprolol 25 mg BID and not once a day. Instructed to recheck his vital signs before 4:30 pm today. states that he will recheck. He denies any symptoms of bradycardia. Denies dizziness or lightheadedness and denies any fatigue or confusion. Reports feeling well overall. has been trying to lower his BP and DM for his upcoming knee surgery. His son has hid his salt and sugar as well as all his sweet. has cut down on desserts, but acknowledges that it is hard. Encouraged to continue to follow a low salt diet and cut out sugary snacks and desserts. Reviewed important of getting up slowly from a seated or lying down position to avoid falling. Educated [place] on a normal HR >60. Reviewed importance of seeking immediate medical attention if he has a low HR with symptoms. Reviewed symptoms to look out for: fatigue, weakness, dizzyness or lightheadedness, confusion, fainting, SOB and CP. [place] denies any of the above. expressed appreciation for the phone call and understanding for education provided. will start taking Metoprolol once a day and will recheck his VS later this afternoon. Notifying PACT Team of low HR and taking Metoprolol BID instead of daily. TYPE OF ENCOUNTER: Telephone Length of call: 5-10 minutes /skinny/ COSTA TOLLIVER MSN, RN, CNL [facility]-HOME TELEHEALTH Signed: 08/15/2023 13:04 Receipt Acknowledged By: 08/15/2023 13:06 /skinny/ Stacey Aggarwal DNP, TALENT SPECIALIST-BC, CNL Primary Care Nurse Practitioner 08/16/2023 ADDENDUM STATUS: COMPLETED CARL SEVERINO (-[id number]) Vital Sign for: 08/15/2023 - 08/16/2023 (All times are EST; All weights are lbs) Primary DMP: DM Comorbid(s): HTN ======== Summary Sys BP Krishnamurthy BP HR Glu ======== High 159 74 64 181 Low 146 63 48 137 Average 154 69 55 159 ======== Date Time Sys Krishnamurthy HR Time Glu 08/16/2023 12:29 159/73 64 12:20 137 08/15/2023 14:13 159/74 55 - 08/15/2023 10:55 146/63 48 10:45 160 08/15/2023 09:47 151/64 52 09:32 181 Source: [employer] [facility]; AllergE[employer]S Omnivisor Pro System /es/ Sheela Prince RN RPM-Home Telehealth Law Secretary Signed: 08/16/2023 13:45 EMILEE REDD [place] [facility] Aug 15, 2023 12:35 PM CARE COORDINATION HOME TELEHEALTH FOLLOW-UP NOTE: LOCAL TITLE: HT INTERVENTION NOTE STANDARD TITLE: CARE COORDINATION HOME TELEHEALTH FOLLOW-UP NOTE DATE OF NOTE: AUG 15, 2023@12:35 ENTRY DATE: AUG 15, 2023@12:35:43 AUTHOR: COSTA PURVIS EXP COSIGNER: URGENCY: STATUS: COMPLETED HT INTERVENTION NOTE Has ADDENDA [place] is actively enrolled in the Home Telehealth program. Review of data shows the following out of range responses: CARL SEVERINO (-[id number]) Vital Sign for: 07/17/2023 - 08/15/2023 (All times are EST; All weights are lbs) Primary DMP: DM Comorbid(s): HTN Summary Sys BP Krishnamurthy BP HR Glu Pain High 187 97 83 235 5 Low 97 48 48 98 5 Average 135 68 62 171 5.0 Date Time Sys Krishnamurthy HR Time Glu Time Pain ===== 08/15/2023 10:55 146/63 48 10:45 160 08/15/2023 [...] 222 08/02/2023 08:02 141/71 59 07:43 160 07/17/2023 - - 06:08 150 Source: [employer] [facility]; Oktalogicr Pro System Assessment/Interventions: [place] identified by full name and . Called to check in due to low HR of 48. Reviewed [place]'s BP medication. thought he was supposed to take Metoprolol 25 mg BID and not once a day. Instructed [place] to recheck his vital signs before 4:30 pm today. states that he will recheck. He denies any symptoms of bradycardia. Denies dizziness or lightheadedness and denies any fatigue or confusion. Reports feeling well overall. [place] has been trying to lower his BP and DM for his upcoming knee surgery. His son has hid his salt and sugar as well as all his sweet. [place] has cut down on desserts, but acknowledges that it is hard. Encouraged to continue to follow a low salt diet and cut out sugary snacks and desserts. Reviewed important of getting up slowly from a seated or lying down position to avoid falling. Educated on a normal HR >60. Reviewed importance of seeking immediate medical attention if he has a low HR with symptoms. Reviewed symptoms to look out for: fatigue, weakness, dizzyness or lightheadedness, confusion, fainting, SOB and CP. [place] denies any of the above. expressed appreciation for the phone call and understanding for education provided. will start taking Metoprolol once a day and will recheck his VS later this afternoon. Notifying PACT Team of low HR and taking Metoprolol BID instead of daily. TYPE OF ENCOUNTER: Telephone Length of call: 5-10 minutes /es/ COSTA TOLLIVER MSN, RN, CNL RPM-HOME TELEHEALTH Signed: 08/15/2023 13:04 Receipt Acknowledged By: 08/15/2023 13:06 /es/ Stacey Aggarwal DNP, TALENT SPECIALIST-BC, CNL Primary Care Nurse Practitioner 08/16/2023 ADDENDUM STATUS: COMPLETED CARL SEEVRINO (-[id number]) Vital Sign for: 08/15/2023 - 08/16/2023 (All times are EST; All weights are lbs) Primary DMP: DM Comorbid(s): HTN ======== Summary Sys BP Krishnamurthy BP HR Glu ======== High 159 74 64 181 Low 146 63 48 137 Average 154 69 55 159 ======== Date Time Sys Krishnamurthy HR Time Glu 08/16/2023 12:29 159/73 64 12:20 137 08/15/2023 14:13 159/74 55 - 08/15/2023 10:55 146/63 48 10:45 160 08/15/2023 09:47 151/64 52 09:32 181 Source: [employer] [facility] [employer]; AllergEaseS Omnivisor Pro System /es/ Sheela Prince RN [facility] Telehealth Law Secretary Signed: 08/16/2023 13:45 08/19/2023 ADDENDUM STATUS: COMPLETED MAYCOL CARL KAROLINA (-[id number]) Vital Sign for: 08/13/2023 - 08/19/2023 (All times are EST; All weights are lbs) Primary DMP: DM Comorbid(s): HTN Summary Sys BP Krishnamurthy BP HR Glu Pain High 163 74 64 222 Low 132 51 44 91 Average 150 67 52 155 Date Time Sys Krishnamurthy HR Time Glu Time Pain ===== 08/19/2023 08:05 139/51 44 07:50 91 08/16/2023 12:29 159/73 64 12:20 137 08/15/2023 14:13 159/74 55 - 08/15/2023 10:55 146/63 48 10:45 160 08/15/2023 09:47 151/64 52 09:32 181 08/14/2023 14:40 163/73 51 14:10 222 08/13/2023 07:37 132/70 52 07:28 137 Source: [employer] [facility]; AllergEaseS Omnivisor Pro System Bradycardia in Vet new to Metoprolol, was taking incorrect dose. Attempted to contact [place] to assess bradycardia, ensure Vet is taking correct dose. No answer at phone number listed in CPRS. HIPAA compliant voice message left with this physician underwriter's name and contact information and request for return call, repeat vitals. A return call was not received. Will continue to monitor using HT/RPM services. /skinny/ Emilee Redd RN,BSN [facility] Registered Nurse Signed: 08/19/2023 16:27 Receipt Acknowledged By: * AWAITING SIGNATURE * STACEY AGGARWAL SHAYNA ALEXIS [place] [facility]
--- OUTSIDE RECORDS SUMMARY | 2024-05-29 10:27 | XMS_ITS | Encounter Summary ---
Author Name [facility] [place] Address [address] [place] [address] Care Team Providers Care Digital Imager Name Role Phone STACEY HORTON Primary Care [...] STAND YON SELF May 29, [phone] [id number] [phone] Abdullahi SEVERINO PATIENT MEDICARE (WNR) MEDICARE (M) PART B Jul 18, 2012 PART B [id number] Abdullahi SEVERINO PATIENT MEDICARE (WNR) MEDICARE (M) PART B Jul 18, 2012 PART B [id number] Abdullahi SEVERINO PATIENT MEDICARE (WNR) MEDICARE (M) PART B Jul 18, 2012 PART B [id number] Abdullahi SEVERINO PATIENT MEDICARE (WNR) MEDICARE (M) PART A Dec 19, 2011 PART A [id number] Abdullahi SEVERINO PATIENT MEDICARE (WNR) MEDICARE (M) PART A Dec 19, 2011 PART A [id number] Abdullahi SEVERINO PATIENT MEDICARE (WNR) MEDICARE (M) PART A Dec 19, 2011 PART A [id number] [phone] Abdullahi SEVERINO PATIENT Selected Encounter This section includes the information on record at [place] for the Encounter. Date/Time Encounter Type Encounter Description Reason Provider Source Aug 15, 2023 02:09 PM Outpatient Encounter HT NON-VIDEO MONITORING ICD-10-CM E11.9 Type 2 diabetes mellitus without complications VIVIANA PURVIS [facility] Encounter Template Text not used by [place] Assessments - Encounter Diagnoses This section includes the primary and secondary diagnoses documented for the Encounter. Date/Time Primary/Secondary Diagnosis Diagnosis Name Provider Source Aug 15, 2023 02:24 PM PRIMARY Type 2 diabetes mellitus without complications VIVIANA PURVIS [place] [facility] [place] [facility] Aug 15, 2023 02:24 PM SECONDARY Essential (primary) hypertension VIVIANA PURVIS [place] [facility] [place] [facility] Plan of Treatment: Future Appointments (+ 6 months) and Future Tests (+/- 45 days) The Plan of Treatment section includes future care activities for the patient from all [place] treatmentfacilities. This section includes future appointments and future orders which are active, pending or scheduled. Future Appointments This section includes appointments that were scheduled to occur 6 months from the date of the Encounter, up to a maximum of 20 appointments. The data comes from all [place] treatment facilities. Appointment Date/Time Appointment Type Appointme nt Facility Name Sep 04, 2023 10:00 AM AMBULATORY - [place]ICINE [place] [facility] [place] [facility] Sep 04, 2023 11:00 AM AM[place]ULATORY - [place]ICINE [place] [facility] [place] [facility] Sep 05, 2023 09:00 AM AMBULATORY - [place]ICINE [place] [facility] [place] [facility] Sep 09, 2023 02:00 PM AMBULATORY - NONE [place] [facility] [place] [facility] September 23, 2023 11:30 AM AM[place]ULATORY [place]ICINE [place] [facility] [place] [facility] October 04, 2023 11:00 AM AMBULATORY - [place]ICINE [place] [facility] [place] [facility] Nov 20, 2023 10:00 AM [facility] Dec 05, 2023 10:30 AM AMBULATORY - [place]ICINE [place] [facility] [place] [facility] Dec 25, 2023 01:00 PM [facility]ORY - [facility] Dec 26, 2023 10:45 AM [facility] [place] [facility] Dec 31, 2023 08:00 AM [facility] [place] [facility] Jan 17, 2024 08:00 AM [facility] Lab Results: +/- 30 days of the encounter This section includes the Chemistry and Hematology Lab Results on record with [place] for the patient. Radiology Reports and Pathology Reports are provided separately, in subsequent sections. Lab Results This section contains the Chemistry/Hematology Results that were resulted 30 days before or 30 daysafter the date of the Encounter. Date/Time Source Result Type Result - Unit Interpretation Reference Range Comment Aug 16, 2023 07:56 AM [facility] MICROALBUMIN CREATININE RATIO PANEL Specimen Type: URINE No comment entered. Ordering Provider: DEISY VELASCO Report Released Date/Time: May 29, 2023 12:04 PM Reporting Lab: [facility] [address] [facility] [address] Performing Lab: [address] [address] MICROALBUMIN/C REATININE RATIO 111.2 mg/g H 0-29.9 MICROALBUMIN,Q UANTITATIVE 9.3 mg/dL RR UNAVAIL CREATININE URINE 83.60 mg/dL Aug 16, 2023 07:56 AM [facility] HEMOGLOBIN A1C PANEL Specimen Type: [...] May 29, 2023 12:04 PM Reporting Lab: [facility] [address] [facility] [address] Performing Lab: [address] [address] HEMOGLOBIN A1C 7.3 H 4.0-5.6 Aug 16, 2023 07:56 AM [facility] LIPID PANEL FASTING Specimen Type: SERUM No comment entered. Ordering Provider: DEISY VELASCO Report Released Date/Time: May 29, 2023 12:04 PM Reporting Lab: [facility] [address] [facility] [address] Performing Lab: [address] [address] CHOLESTEROL 122 mg/dL TRIGLYCERIDE 399 mg/dL H 0-150 LDL calculated Reflex to dLD L mg/dL 0-129 CHOL/HDL 3.9 HDL CHOLESTEROL 31 mg/dL L 40-60 LDL DIRECT 45 mg/dL Aug 16, 2023 07:56 AM [facility] BASIC METABOLIC PANEL (fasting) Specimen Type: SERUM No comment entered. Ordering Provider: DEISY VELASCO Report Released Date/Time: May 29, 2023 12:04 PM Reporting Lab: [facility] [address] [facility] [address] Performing Lab: [address] [address] UREA NITROGEN 17 mg/dL 7-25 GLUCOSE 162 [...] and tobacco- related health factors from the [place] facility where the Encounter took place. Current Smoking Status This section includes the most current smoking, or tobacco-related health factor, from the [place] facility where the Encounter took place. Date/Time Current Smoking Status Comment [facility] Apr 05, 2023 11:30 AM VA-TOBACCO FORMER USER [place] [facility] [place] [facility] Tobacco Use History This section includes a history of the smoking, or tobacco-related health factors, that were collected on or before the date of the Encounter. The data comes from the [place] facility where the Encounter took place. Date/Time Smoking Status/Tobac co Use Comment Facility Apr 05, 2023 11:30 AM VA-TOBACCO QUIT 15 YRS OR MORE [place] [facility] [place] [facility] Dec 28, 2021 09:30 AM VA-TOBACCO FORMER USER [facility] [place] [facility] Dec 28, 2021 09:30 AM VA-TOBACCO QUIT 15 YRS OR MORE [place] [facility] [place] [facility] Dec 02, 2020 09:00 AM VA-TOBACCO FORMER USER [place] [facility] [place] [facility] Dec 02, 2020 09:00 AM VA-TOBACCO QUIT 15 YRS OR MORE [place] [facility] [place] [facility] Aug 18, 2019 03:19 PM VA-TOBACCO FORMER USER [place] [facility] [place] [facility] Aug 18, 2019 03:19 PM VA-TOBACCO QUIT 15 YRS OR MORE [place] [facility] [place] [facility] September 23, 2018 09:58 AM VA-TOBACCO FORMER USER [place] [facility] [place] [facility] September 23, 2018 09:58 AM VA-TOBACCO QUIT 15 YRS OR MORE [place] [facility] [place] [facility] September 30, 2017 09:20 AM QUIT TOBACCO USE > 7 YEARS AGO [facility] [place] [facility] Aug 20, 2016 09:17 AM QUIT TOBACCO USE > 7 YEARS AGO quit 1991 [place] [facility] [place] [facility] Jun 27, 2016 09:45 AM CURRENT SMOKER Quit 25 years ago [facility] [place] [facility] Apr 18, 2015 09:06 AM QUIT TOBACCO USE > 7 YEARS AGO quit in 1991 [place] [facility] [place] [facility] Mar 21, 2005 10:12 AM HISTORY OF SMOKING [place] [facility] [place] [facility] Mar 21, 2005 10:12 AM QUIT TOBACCO USE > 7 YEARS AGO [facility] [place] [facility] Advance Directives: All historical and current Section Date Range: From patient's date of to the date document was created. This section includes ALL of a patient's completed or amended [place] Advance and Rescinded Directives. The entries below indicate that a directive exists for the patient, but an actual copy is not included with this document. The data comes from all [place] facilities. Date Advance Directives Provider Source Feb 04, 2019 ADVANCE DIRECTIVE CESAR LUA [facility] Encounter Notes: All associated encounter notes This section contains the clinical notes associated to the Encounter. Date/Time Encounter Note(s) Provider Source Aug 15, 2023 02:21 PM CARE COORDINATION HOME TELEHEALTH SUMMARIZATION NOTE: LOCAL TITLE: HT MONTHLY MONITOR NOTE STANDARD TITLE: CARE COORDINATION HOME TELEHEALTH SUMMARIZATION DATE OF NOTE: AUG 15, 2023@14:21 ENTRY DATE: AUG 15, 2023@14:21:53 AUTHOR: COSTA PURVIS EXP COSIGNER: URGENCY: STATUS: COMPLETED The is enrolled in the Home Telehealth (HT) program and continues to be monitored via HT technology. The data sent by the [place] is reviewed and analyzed by the HT staff, who provide ongoing case management and [place] health education while communicating and collaborating with the health care team as appropriate. This note covers a total of 30 minutes for the month monitored. Month monitored: July 2023 Dx: DM/HTN /es/ COSTA REGALADO, RN, CNL RPM-HOME TELEHEALTH Signed: 08/15/2023 14:24 COSTA PURVIS [facility]
--- OUTSIDE RECORDS SUMMARY | 2024-05-29 10:28 | XMS_ITS | Encounter Summary ---
Author Name [facility] [place] Address [address] [place] [address] Care Team Providers Care Projection Printer Name Role Phone STACEY HORTON Primary Care [...] STAND YON SELF May 29, 2001 104 [id number] [phone] Abdullahi SEVERINO PATIENT MEDICARE (WNR) MEDICARE (M) PART B Jul 18, 2012 PART B [id number] [phone] Abdullahi SEVERINO PATIENT MEDICARE (WNR) MEDICARE (M) PART B Jul 18, 2012 PART B [id number] Abdullahi SEVERINO PATIENT MEDICARE (WNR) MEDICARE (M) PART B Jul 18, 2012 PART B [id number] Abdullahi SEVERINO PATIENT MEDICARE (WNR) MEDICARE (M) PART A Dec 19, 2011 PART A [id number] [phone] Abdullahi SEVERINO PATIENT MEDICARE (WNR) MEDICARE (M) PART A Dec 19, 2011 PART A [id number] Abdullahi SEVERINO PATIENT MEDICARE (WNR) MEDICARE (M) PART A Dec 19, 2011 PART A [id number] [phone] Abdullahi SEVERINO PATIENT Selected Encounter This section includes the information on record at [place] for the Encounter. Date/Time Encounter Type Encounter Description Reason Provider Source Sep 04, 2023 01:25 PM QNHP OL DIG ASSMT&MGMT 5-10 CLINICAL PHARMACY ICD-10-CM E11.9 Type 2 diabetes mellitus without complications CECILLE TAPIA Encounter Template Text not used by [place] Assessments - Encounter Diagnoses This section includes the primary and secondary diagnoses documented for the Encounter. Date/Time Primary/Secondary Diagnosis Diagnosis Name Provider Source Sep 04, 2023 01:27 PM PRIMARY Type 2 diabetes mellitus without complications CECILLE TAPIA JACKSON Plan of Treatment: Future Appointments (+ 6 months) and Future Tests (+/- 45 days) The Plan of Treatment section includes future care activities for the patient from all [place] treatmentfacilities. This section includes future appointments and future orders which are active, pending or scheduled. Future Appointments This section includes appointments that were scheduled to occur 6 months from the date of the Encounter, up to a maximum of 20 appointments. The data comes from all [place] treatment facilities. Appointment Date/Time Appointment Type Appointme nt Facility Name Sep 05, 2023 09:00 AM AMBULATORY [place]ICINE [place] [facility] [place] [facility] Sep 09, 2023 02:00 PM AMBULATORY - NONE [place] [facility] [place] [facility] September 23, 2023 11:30 AM AMBULATORY - MEDICINE [place] [facility] [place] [facility] October 04, 2023 11:00 AM AMBULATORY - MEDICINE [place] [facility] [place] [facility] Nov 20, 2023 10:00 AM [facility]ORY [facility]ICINE [facility] Dec 05, 2023 10:30 AM AMBULATORY - MEDICINE [place] [facility] [place] [facility] Dec 25, 2023 01:00 PM AMBULATORY - MEDICINE [facility] Dec 26, 2023 10:45 AM AMBULATORY - NONE [place] [facility] [place] [facility] Dec 31, 2023 08:00 AM AMBULATORY - MEDICINE [place] [facility] [place] [facility] Jan 17, 2024 08:00 AM AMBULATORY - MEDICINE [place] [facility] [place] [facility] Feb 17, 2024 11:00 AM AMBULATORY - MEDICINE [place] [facility] [place] [facility] Mar 05, 2024 01:30 PM [facility] [place] [facility] Lab Results: +/- 30 days of [...] Range Comment Aug 16, 2023 07:56 AM [facility] MICROALBUMIN CREATININE RATIO PANEL Specimen Type: URINE No comment entered. Ordering Provider: DEISY VELASCO Report Released Date/Time: May 29, 2023 12:04 PM Reporting Lab: [facility] [address] [address] Performing Lab: [facility] [address] [address] MICROALBUMIN/C REATININE RATIO 111.2 mg/g H 0-29.9 MICROALBUMIN,Q UANTITATIVE 9.3 mg/dL RR UNAVAIL CREATININE URINE 83.60 mg/dL Aug 16, 2023 07:56 AM [facility] HEMOGLOBIN A1C PANEL Specimen Type: BLOOD [...] 29, 2023 12:04 PM Reporting Lab: [address] [address] Performing Lab: [facility] [address] [address] HEMOGLOBIN A1C 7.3 H 4.0-5.6 Aug 16, 2023 07:56 AM [facility] LIPID PANEL FASTING Specimen Type: SERUM No comment entered. Ordering Provider: DEISY VELASCO Report Released Date/Time: May 29, 2023 12:04 PM Reporting Lab: [facility] [address] [address] Performing Lab: [address] [address] CHOLESTEROL 122 mg/dL TRIGLYCERIDE 399 mg/dL H 0-150 LDL calculated Reflex to dLD L mg/dL 0-129 CHOL/HDL 3.9 HDL CHOLESTEROL 31 mg/dL L 40-60 LDL DIRECT 45 mg/dL Aug 16, 2023 07:56 AM [facility] BASIC METABOLIC PANEL (fasting) Specimen Type: SERUM No comment entered. Ordering Provider: DEISY VELASCO Report Released Date/Time: May 29, 2023 12:04 PM Reporting Lab: [facility] [address] [address] Performing Lab: [address] [address] UREA NITROGEN 17 mg/dL 7-25 GLUCOSE 162 [...] Feb 04, 2019 ADVANCE DIRECTIVE CESAR LUA [facility] Encounter Notes: All associated encounter notes This section contains the clinical notes associated to the Encounter. Date/Time Encounter Note(s) Provider Source Sep 04, 2023 01:25 PM PHARMACY CONSULT: LOCAL TITLE: CONSULT REPORT/PRIOR AUTH FACILITY PADR STANDARD TITLE: PHARMACY CONSULT DATE OF NOTE: SEP 04, 2023@13:25 ENTRY DATE: SEP 04, 2023@13:25:52 AUTHOR: CECILLE TAPIA COSIGNER: URGENCY: STATUS: COMPLETED The medical record has been reviewed with regard to this restricted drug request. Medication requested: SEMAGLUTIDE 0.25MG/0.375ML INJ PEN 3ML Medication indication: DM Medical history relevant to this request: Hx DM, obesity and CKD; followed by endocrine. Per consult: Pt had elevated TG, which have improved. Benefits of GLP1 likely outweigh risks. No DR, no fhx thyroid ca. The request is approved x 12 months - A documented therapeutic failure of the preferred formulary alternative(s) exists /skinny/ Cecille Tapia, Ariel Clinical Pharmacy Practitioner Signed: 09/04/2023 13:27 CECILLE TAPIA JACKSON
--- OUTSIDE RECORDS SUMMARY | 2024-05-29 10:28 | XMS_ITS | Encounter Summary ---
Author Name [facility] [place] [facility] [place] Address [address] [place] [address] Care Team Providers Care Tong Setter Name Role Phone STACEY HORTON [facility] [place] [facility] [place] Providers: All historical and current Section [...] STAND YON SELF May 29, [phone] [id number] Abdullahi SEVERINO PATIENT MEDICARE (WNR) MEDICARE (M) PART B Jul 18, 2012 PART B [id number] [phone] Abdullahi SEVERINO PATIENT MEDICARE (WNR) MEDICARE (M) PART B Jul 18, 2012 PART B [id number] [phone] Abdullahi SEVERINO PATIENT MEDICARE (WNR) MEDICARE (M) PART B Jul 18, 2012 PART B [id number] Abdullahi SEVERINO PATIENT MEDICARE (WNR) MEDICARE (M) PART A Dec 19, 2011 PART A [id number] Abdullahi SEVERINO PATIENT MEDICARE (WNR) MEDICARE (M) PART A Dec 19, 2011 PART A [id number] Abdullahi SEVERINO PATIENT MEDICARE (WNR) MEDICARE (M) PART A Dec 19, 2011 PART A [id number] Abdullahi SEVERINO PATIENT Selected Encounter This section includes the information on record at [place] for the Encounter. Date/Time Encounter Type Encounter Description Reason Provider Source Sep 04, 2023 10:00 AM Outpatient Encounter GENERAL INTERNAL MEDICINE ICD-10-CM E11.9 Type 2 diabetes mellitus without complications JACKIE BRITTON [facility] Encounter Template Text not used by [place] Assessments - Encounter Diagnoses This section includes the primary and secondary diagnoses documented for the Encounter. Date/Time Primary/Secondary Diagnosis Diagnosis Name Provider Source Sep 04, 2023 10:13 AM PRIMARY Type 2 diabetes mellitus without complications JACKIE BRITTON [facility] Plan of Treatment: Future Appointments (+ 6 months) and Future Tests (+/- 45 days) The Plan of Treatment section includes future care activities for the patient [facility] [place] [facility] This section includes future appointments and future [...] - MEDICINE [place] [facility] [place] [facility] Sep 09, 2023 02:00 PM AMBULATORY - NONE [place] [facility] [place] [facility] September 23, 2023 11:30 AM AMBULATORY - MEDICINE [place] [facility] [place] [facility] October 04, 2023 11:00 AM AMBULATORY - MEDICINE [place] [facility] [place] [facility] Nov 20, 2023 10:00 AM AM[facility] - [facility] Dec 05, 2023 10:30 AM AMBULATORY - MEDICINE [place] [facility] [place] [place] [facility] Dec 25, 2023 01:00 PM [facility] Dec 26, 2023 10:45 AM AMBULATORY - NONE [place] [facility] [place] [facility] Dec 31, 2023 08:00 AM AMBULATORY - MEDICINE [place] [facility] [place] [facility] Jan 17, 2024 08:00 AM AMBULATORY - MEDICINE [place] [facility] [place] [facility] Feb 17, 2024 11:00 AM AMBULATORY - MEDICINE [place] [facility] [place] [facility] Mar 05, 2024 01:30 PM AMBULATORY - MEDICINE [place] [facility] Lab Results: +/- 30 days of the encounter This section includes the Chemistry and Hematology Lab Results on record with [place] for the patient. Radiology Reports and Pathology Reports are provided separately, in subsequent sections. Lab Results This section contains the Chemistry/Hematology Results that were resulted 30 days before or 30 daysafter the date of the Encounter. Date/Time Source Result Type Result - Unit Interpretation Reference Range Comment Aug 16, 2023 07:56 AM [facility] LIPID PANEL FASTING Specimen Type: SERUM No comment entered. Ordering Provider: DEISY VELASCO Report Released Date/Time: May 29, 2023 12:04 PM Reporting [facility] [address] [address] Performing Lab: [facility] [address] [address] CHOLESTEROL 122 mg/dL TRIGLYCERIDE 399 mg/dL H 0-150 LDL calculated Reflex to dLD L mg/dL 0-129 CHOL/HDL 3.9 HDL CHOLESTEROL 31 mg/dL L 40-60 LDL DIRECT 45 mg/dL Aug 16, 2023 07:56 AM [facility] MICROALBUMIN CREATININE RATIO PANEL Specimen Type: URINE No comment entered. Ordering Provider: DEISY VELASCO Report Released Date/Time: May 29, 2023 12:04 PM Reporting Lab: [facility] [address] [address] Performing Lab: [address] [address] MICROALBUMIN/C REATININE RATIO 111.2 mg/g H 0-29.9 MICROALBUMIN,Q UANTITATIVE 9.3 mg/dL RR UNAVAIL CREATININE URINE 83.60 mg/dL Aug 16, 2023 07:56 AM [facility] HEMOGLOBIN A1C PANEL Specimen Type: BLOOD Comment: [...] May 29, 2023 12:04 PM Reporting Lab: [facility] [employer] [address] Performing Lab: [address] [address] HEMOGLOBIN A1C 7.3 H 4.0-5.6 Aug 16, 2023 07:56 AM [facility] BASIC METABOLIC PANEL (fasting) Specimen Type: SERUM No comment entered. Ordering Provider: DEISY VELASCO Report Released Date/Time: May 29, 2023 12:04 PM Reporting Lab: [address] [address] Performing Lab: [address] [address] UREA NITROGEN 17 mg/dL 7-25 GLUCOSE 162 mg/dL H 65-100 SODIUM 139 mmol/L 135-145 POTASSIUM 4.1 mmol/L 3.5-5.0 CHLORIDE 104 mmol/L 100-110 CO2 24 meq/L 20-30 CREATININE, Serum 1.06 mg/dL 0.50-1.40 eGFR(CKD-EPI 2020) 72 mL/min >60 Vital Signs: All taken on the encounter date This section contains inpatient and outpatient Vital Signs collected on the date of the Encounter. Date/Time Temperature Pulse Blood Pressure Respiratory Rate SP02 Pain Height Weight Body Mass Index Source Sep 04, 2023 11:03 AM 55 130/60 [place] [facility] [employer] [facility] Sep 04, 2023 10:04 AM 96.7 71 143/61 18 99 2 246 34 [facility] [employer] [facility] Social History: Smoking Status (Most [...] 05, 2023 11:30 AM VA-TOBACCO FORMER USER [place] [facility] [place] [facility] Tobacco Use History This section includes a history of the smoking, or tobacco-related health factors, that were collected on or before the date of the Encounter. The data comes from the [place] facility where the Encounter took place. Date/Time Smoking Status/Tobac co Use Comment Facility Apr 05, 2023 11:30 AM VA-TOBACCO QUIT 15 YRS OR MORE [place] [facility] [place] [facility] Dec 28, 2021 09:30 AM VA-TOBACCO FORMER USER [place] [facility] [facility] Dec 28, 2021 09:30 AM VA-TOBACCO QUIT 15 YRS OR MORE [place] [facility] [place] [facility] Dec 02, 2020 09:00 AM VA-TOBACCO FORMER USER [place] [facility] [place] [facility] Dec 02, 2020 09:00 AM VA-TOBACCO QUIT 15 YRS OR MORE [place] [facility] [place] [facility] Aug 18, 2019 03:19 PM VA-TOBACCO FORMER USER [place] [facility] [facility] Aug 18, 2019 03:19 PM VA-TOBACCO QUIT 15 YRS OR MORE [place] [facility] [place] [facility] September 23, 2018 09:58 AM VA-TOBACCO FORMER USER [place] [facility] [place] [facility] September 23, 2018 09:58 AM VA-TOBACCO QUIT 15 YRS OR MORE [place] [facility] [place] [facility] September 30, 2017 09:20 AM QUIT TOBACCO USE > 7 YEARS AGO [facility] [facility] Aug 20, 2016 09:17 AM QUIT TOBACCO USE > 7 YEARS AGO quit 1991 [place] [facility] [place] [facility] Jun 27, 2016 09:45 AM CURRENT SMOKER Quit 25 years ago [facility] [facility] Apr 18, 2015 09:06 AM QUIT TOBACCO USE > 7 YEARS AGO [facility] Mar 21, 2005 10:12 AM HISTORY OF SMOKING [facility] Mar 21, 2005 10:12 AM QUIT TOBACCO USE > 7 YEARS AGO [facility] Advance Directives: All historical and current [...] Feb 04, 2019 ADVANCE DIRECTIVE CESAR LUA [facility] Encounter Notes: All associated encounter notes This section contains the clinical notes associated to the Encounter. Date/Time Encounter Note(s) Provider Source Sep 04, 2023 10:14 AM DIABETOLOGY NOTE: LOCAL TITLE: INSULIN PUMP/CGM DOWNLOAD (T) STANDARD TITLE: DIABETOLOGY NOTE DATE OF NOTE: SEP 04, 2023@10:14 ENTRY DATE: SEP 04, 2023@10:14:55 AUTHOR: ZULEIKA BRITTON EXP COSIGNER: URGENCY: STATUS: COMPLETED Please select: Personal Continuous Glucose Monitor Date of Documentation:Aug Please see attached scanned document in [facility]. Dx: Diabetes type 2 Bhargav 3 /es/ ZULEIKA BRITTON LPN Specialty Care Signed: 09/04/2023 10:15 ZULEIKA BRITTON [facility] Sep 04, 2023 10:13 AM DIABETOLOGY NOTE: LOCAL TITLE: GLUCOSE PATIENT METER DATA STANDARD TITLE: DIABETOLOGY NOTE DATE OF NOTE: SEP 04, 2023@10:13 ENTRY DATE: SEP 04, 2023@10:13:21 AUTHOR: ZULEIKA BRITTON EXP COSIGNER: URGENCY: STATUS: COMPLETED Name: CARL SEVERINO : 1945 ID: [id number] Information from [facility] on 09/04/2023 Patient Name: CARL SEVERINO Date Range: 08/22/2023 - 09/04/2023 bG values are displayed in mg/dL # of tests 5 Average 154 SD 73.8 Highest 252 Lowest 79 Avg tests/day 0.4 # HI 0 # LO 0 <70 0.0% 70-140 40.0% >140 60.0% Hypos(<50) 0 Date Range: 08/22/2023 - 09/04/2023 bG values are displayed in mg/dL 00:00- :30- 08:00- 11:00- 12:30- 17:- :- :- :30 08:00 11:00 12:30 17:00 18:30 21:30 00:00 Jody 08/22/2023 196 85 08/23/2023 159 08/24/2023 252 79 Date Range: 08/22/2023 - 09/04/2023 bG values are displayed in mg/dL 00:00- :30- 08:00- 11:- :- 17:- 18:30- :30- :30 08:00 11:00 12:30 17:00 18:30 21:30 00:00 # of tests 0 1 1 1 1 1 0 0 Average 0 159 252 196 79 85 0 0 SD 0 0 0 0 0 Hi/Lo 0 0 0 0 0 0 0 0 Date Range: 08/22/2023 - 09/04/2023 bG values are displayed in mg/dL 08/22/2023 11:06 AM 196 5:07 PM 85 08/23/2023 7:41 AM 159 08/24/2023 9:29 AM 252 2:05 PM 79 End of information from [email or web address] [facility] // ZULEIKA BRITTON LPN Specialty Care Signed: 09/04/2023 10:13 [facility]
--- OUTSIDE RECORDS SUMMARY | 2024-05-29 10:28 | XMS_ITS | Encounter Summary ---
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 Name Role Phone STACEY HORTON [facility] Insurance Providers: All historical and [...] STAND YON SELF May 29, [phone] [id number] [phone] Abdullahi SEVERINO PATIENT MEDICARE (WNR) MEDICARE (M) PART B Jul 18, 2012 PART B [id number] Abdullahi SEVERINO PATIENT MEDICARE (WNR) MEDICARE (M) PART B Jul 18, 2012 PART B [id number] Abdullahi SEVERINO PATIENT MEDICARE (WNR) MEDICARE (M) PART B Jul 18, 2012 PART B [id number] Abdullahi SEVERINO PATIENT MEDICARE (WNR) MEDICARE (M) PART A Dec 19, 2011 PART A [id number] [phone] Abdullahi SEVERINO PATIENT MEDICARE (WNR) MEDICARE (M) PART A Dec 19, 2011 PART A [id number] Abdullahi SEVERINO PATIENT MEDICARE (WNR) MEDICARE (M) PART A Dec 19, 2011 PART A [id number] [phone] Abdullahi SEVERINO PATIENT Selected Encounter This section includes the information on record at [place] for the Encounter. Date/Time Encounter Type Encounter Description Reason Provider Source Sep 04, 2023 10:00 AM OFFICE O/P EST HI 40 MIN ENDOCRINOLOGY ICD-10-CM E11.9 Type 2 diabetes mellitus without complications DEISY VELASCO Afshin Encounter Template Text not used by [place] Assessments - Encounter Diagnoses This section includes the primary and secondary diagnoses documented for the Encounter. Date/Time Primary/Secondary Diagnosis Diagnosis Name Provider Source Sep 04, 2023 12:54 PM PRIMARY Type 2 diabetes mellitus without complications [facility] [place] [facility] Sep 04, 2023 12:54 PM SECONDARY Chronic kidney disease, stage 1 [facility] [place] [facility] Sep 04, 2023 12:54 PM SECONDARY Essential (primary) hypertension [facility] [place] [facility] Sep 04, 2023 12:54 PM SECONDARY Mixed hyperlipidemia [facility] [place] [facility] Sep 04, 2023 12:54 PM SECONDARY Obesity, unspecified [facility] [place] [facility] Sep 04, 2023 12:54 PM SECONDARY Type 2 diabetes mellitus w diabetic chronic kidney disease [facility] [place] [facility] Plan of Treatment: Future Appointments (+ 6 months) and Future Tests (+/- 45 days) The Plan of Treatment section includes future care activities for the patient from all [place] treatmentfacilities. This section includes future appointments and future orders which are active, pending or scheduled. Future Appointments This section includes appointments that were scheduled to occur 6 months from the date of the Encounter, up to a maximum of 20 appointments. The data comes from all [place] treatment facilities. Appointment Date/Time Appointment Type Appointme nt Facility Name Sep 05, 2023 09:00 AM [facility]UL[facility]ORY [facility]ICINE [facility] [place] [facility] Sep 09, 2023 02:00 PM AMBULATORY - NONE [facility] [place] [facility] September 23, 2023 11:30 AM AMBULATORY - MEDICINE [facility] [place] [facility] October 04, 2023 11:00 AM AMBULATORY - MEDICINE [facility] [place] [facility] Nov 20, 2023 10:00 AM [facility] [place] Dec 05, 2023 10:30 AM AMBULATORY - MEDICINE [facility] [place] [facility] Dec 25, 2023 01:00 [facility] Dec 26, 2023 10:45 AM AMBULATORY - NONE [facility] [place] [facility] Dec 31, 2023 08:00 AM AMBULATORY - MEDICINE [facility] [place] [facility] Jan 17, 2024 08:00 AM AMBULATORY - MEDICINE [facility] [place] [facility] Feb 17, 2024 11:00 AM AMBULATORY - MEDICINE [facility] [place] [facility] Mar 05, 2024 01:30 PM AMBULATORY - MEDICINE [place] [facility] [place] [facility] Lab Results: +/- 30 days of the encounter This section includes the Chemistry and Hematology Lab Results on record with [place] for the patient. Radiology Reports and Pathology Reports are provided separately, in subsequent sections. Lab Results This section contains the Chemistry/Hematology Results that were resulted 30 days before or 30 daysafter the date of the Encounter. Date/Time Source Result Type Result - Unit Interpretation Reference Range Comment Aug 16, 2023 07:56 AM [place] [facility] MICROALBUMIN CREATININE RATIO PANEL Specimen Type: URINE No comment entered. Ordering Provider: DEISY VELASCO Report Released Date/Time: May 29, 2023 12:04 PM Reporting [facility] [address] [address] Performing Lab: [facility] [address] [address] MICROALBUMIN/C REATININE RATIO 111.2 mg/g H 0-29.9 MICROALBUMIN,Q UANTITATIVE 9.3 mg/dL RR UNAVAIL CREATININE URINE 83.60 mg/dL Aug 16, 2023 07:[address] [facility] HEMOGLOBIN A1C PANEL Specimen Type: BLOOD [...] May 29, 2023 12:04 PM Reporting Lab: [address] [address] Performing Lab: [address] [address] HEMOGLOBIN A1C 7.3 H 4.0-5.6 Aug 16, 2023 07:[address] [facility] LIPID PANEL FASTING Specimen Type: SERUM No comment entered. Ordering Provider: DEISY VELASCO Report Released Date/Time: May 29, 2023 12:04 PM Reporting Lab: [address] [address] Performing Lab: [address] [address] CHOLESTEROL 122 mg/dL TRIGLYCERIDE 399 mg/dL H 0-150 LDL calculated Reflex to dLD L mg/dL 0-129 CHOL/HDL 3.9 HDL CHOLESTEROL 31 mg/dL L 40-60 LDL DIRECT 45 mg/dL Aug 16, 2023 07:[address] [facility] BASIC METABOLIC PANEL (fasting) Specimen Type: SERUM No comment entered. Ordering Provider: DEISY VELASCO Report Released Date/Time: May 29, 2023 12:04 PM Reporting Lab: [address] [address] Performing Lab: [address] [address] UREA NITROGEN 17 mg/dL 7-25 GLUCOSE 162 [...] Sep 04, 2023 11:03 AM 55 130/60 [facility] [place] [facility] Sep 04, 2023 10:04 AM 96.7 71 143/61 18 99 2 246 34 [facility] [place] [facility] Social History: Smoking Status (Most current) and Tobacco Use (All prior to encounter date) This section includes the most current, and the historical, smoking and tobacco- related health factors from the [place] facility where the Encounter took place. Current Smoking Status This section includes the most current smoking, or tobacco-related health factor, from the [place] facility where the Encounter took place. Date/Time Current Smoking Status Comment [facility] Apr 05, 2023 11:30 AM VA-TOBACCO FORMER USER [place] [facility] [place] [facility] Tobacco Use History This section includes a history of the smoking, or tobacco-related health factors, that were collected on or before the date of the Encounter. The data comes from the [place] facility where the Encounter took place. Date/Time Smoking Status/Tobac co Use Comment Facility Apr 05, 2023 11:30 AM VA-TOBACCO QUIT 15 YRS OR MORE [facility] [place] [facility] Dec 28, 2021 09:30 AM VA-TOBACCO FORMER USER [facility] [place] [facility] Dec 28, 2021 09:30 AM VA-TOBACCO QUIT 15 YRS OR MORE [facility] [place] [facility] Dec 02, 2020 09:00 AM VA-TOBACCO FORMER USER [facility] [place] [facility] Dec 02, 2020 09:00 AM VA-TOBACCO QUIT 15 YRS OR MORE [facility] [place] [facility] Aug 18, 2019 03:19 PM VA-TOBACCO FORMER USER [facility] [place] [facility] Aug 18, 2019 03:19 PM VA-TOBACCO QUIT 15 YRS OR MORE [facility] September 23, 2018 09:58 AM [place]-TOBACCO FORMER USER [facility] September 23, 2018 09:58 AM VA-TOBACCO QUIT 15 YRS OR MORE [facility] September 30, 2017 09:20 AM QUIT TOBACCO USE > 7 YEARS AGO [facility] Aug 20, 2016 09:17 AM QUIT TOBACCO USE > 7 YEARS AGO quit 1991 [facility] Jun 27, 2016 09:45 AM CURRENT SMOKER Quit 25 years ago [facility] Apr 18, 2015 09:06 AM QUIT TOBACCO USE > 7 YEARS AGO quit in [address] [facility] Mar 21, 2005 10:12 AM HISTORY OF SMOKING [facility] Mar 21, 2005 10:12 AM QUIT TOBACCO USE > [address] [facility] Advance Directives: All historical and current Section Date Range: From patient's date of to the date document was created. This section includes ALL of a patient's completed or amended [place] Advance and Rescinded Directives. The entries below indicate that a directive exists for the patient, but an actual copy is not included with this document. The data comes from all [place] facilities. Date Advance Directives Provider Source Feb 04, 2019 ADVANCE DIRECTIVE [facility] Encounter Notes: All associated encounter notes This section contains the clinical notes associated to the Encounter. 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 Healthy choices. Feels well. We had considered initiation of GLP1. However, markedly increased TG precluded this. All endocrine labs were reviewed with the patient. Barriers/s supports for care: Three meals a day. Medications for diabetes: U500 100/85/75 BG readings: Date Time Wt Time Sys Krishnamurthy HR Time Glu Time Pain 08/23/2023 08:12 151/65 51 08:00 159 08/22/2023 [...] 222 08/13/2023 07:37 132/70 52 07:28 137 Date Time Sys Krishnamurthy HR Time Glu Time Pain 08/19/2023 08:05 139/51 44 07:50 91 08/16/2023 12:29 159/73 64 12:20 137 08/15/2023 14:13 159/74 55 - 08/15/2023 10:55 146/63 48 10:45 160 08/15/2023 09:47 151/64 52 09:32 181 08/14/2023 14:40 163/73 51 14:10 222 08/13/2023 07:37 132/70 52 07:28 137 Collection DT Spec HGBA1c 08/16/2023 07:56 BLOOD 7.3 H 04/25/2023 08:45 BLOOD 6.7 H 01/22/2023 09:03 BLOOD 8.0 H 10/18/2022 10:16 BLOOD 7.7 H 06/22/2022 08:29 BLOOD 8.4 H Weight trend: 251 lbs BMI 35.14 20 lbs down from remote peak Food insecurity no Physical activity: not much, awaiting knee surgery Carbohydrate counting: well informed no Episodes of hypoglycemia: no Hypoglycemia unawareness: Neuropathy pain:rare no burning numbness present Last eye evaluation: non [facility] no DR 05/2023 reviewed report Last nephropathy screen MICROALBUMIN Aug 16, 2023@07:56 URINE mALB/Cr: 111.2 H mg/G 0 - 29.9 FindingsCREATININE-EGFR 08/16/23 07:56 1.06 04/25/23 08:45 0.94 01/22/23 09:03 1.07 Statin therapy: Aug 15 Apr 25 Sep Reference 2023 2022 2022 CHOL 122 119 135 mg/dL <7 - 199 TRIG 399 H 709 H 550 H mg/dL 0 - 150 HDL 31 L 29 L 31 L mg/dL 40 - 60 LDL-d 45 39 45 mg/dL <55 CAD: present On asa: yes emergency kit/glucose tabs: Grandson knows how to use glucagon has kit Active problems - Computerized Problem List is the source for the followin. Exposure to potentially hazardous substance ([facility] [id number]) 2. Knee pain 3. Diabetes mellitus type 2 4. 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 Cancer screening follow up 6. Anxiety 7. Eating disorder 8. Obstructive sleep apnea syndrome 9. Arteriosclerotic heart disease 10. Obesity (SNOMED CT 289942705) 11. Hyperlipidemia (SNOMED CT 53065776) 12. Benign essential hypertension (SNOMED CT 3081242) 13. Venous Insufficiency Active Outpatient Medications (including Supplies): [...] DHA/EPA) CAP TAKE TWO CAPSULES BY HOLD MOUTH TWICE DAILY GLUCOSE SENSOR FREESTYLE VARUN 2 USE 1 SENSOR DIRECTED ACTIVE EVERY [...] ADJUST DOSE WITHOUT THE CONSENT OF YOUR VETERINARY RADIOLOGIST. 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 No hx pancreatitis, no fhx thyroid CA, no DRGilbert Discussed semaglutide benefits and harms, and he agrees. NFR placed. Insulin Dose: U500 90/75/75. Carbohydrate targets 45 gm TID Blood sugar targets 130 premeal and 150-180 after Hemoglobin A1c Targets Obesity interested in teleMOVE, referred Hypertension Elevated - pt has PCP appt today. Defer to PCP Hyperlipidemia Cholesterol well controlled. TG much improved. Team follow up Has DM education visit in November. lab BMP, Hgba1c next visit. Insulin orders updated in cprs F/u three mos FTF Medication Reconciliation: Outpatient: Has the patient been taking medications as documented in the EMLR? YES: The patient has been taking medications as documented in the EMLR. Essential Medication List for Review used to [...] discontinued in the past 90 days. - All changes in medications, including all non-VA/Herbal/OTC medications were entered into CPRS. - If there were any medications the patient should no longer take, they were discontinued. - The patient/caregiver was instructed to update this list, discard old lists, and take this list to the next appointment, whether with a VA or non-VA provider. JLV Link Data on this list may not be complete. Please check JLV. Allergies/ADRs (Tool #5) FACILITY ALLERGY/ADR -------- [facility] NO KNOWN ALLERGIES [place] [facility] [place] [facility] DEMEROL 100MG/ML [place]TR[place]GE Med Recon NoGlossary (Tool #1) INCLUDED IN THIS LIST: Alphabetical list of active outpatient prescriptions dispensed from this [place] (local) and dispensed from another [place] or [facility] facility (remote) as well as inpatient orders (local pending and active), local clinic medications, locally documented non-VA medications, and local prescriptions that have or been discontinued in the past 90 days. Non-VA Meds Last Documented On: Jan 11, 2023 NOTE The display of VA prescriptions dispensed from another VA or [facility] facility (remote) is limited to active outpatient prescription entries matched to National Drug File at the originating site and may not include some items such as investigational drugs, compounds, etc. NOT INCLUDED IN THIS LIST: Medications self-entered by the patient into personal health records (i.e. [employer]) are NOT included in this list. Non-VA medications documented outside this [place], remote inpatient orders (regardless of status) and remote clinic medications are NOT included in this list. The patient and provider must always discuss medications the patient is taking, regardless of where the medication was dispensed or obtained. Non-VA AMLODIPINE BESYLATE 5MG TAB TAKE ONE TABLET BY MOUTH ONCE DAILY Indication: FOR HIGH BLOOD PRESSURE Non-VA ASPIRIN 81MG EC TAB TAKE ONE TABLET BY MOUTH ONCE DAILY OUTPT ATORVASTATIN CALCIUM 80MG TAB (Status = Active) TAKE ONE TABLET BY MOUTH ONCE DAILY FOR CHOLESTEROL Rx# [id number] Last Released: 02/11/23 Qty/Days Supply: Rx Expiration Date: 02/07/24 Refills Remainin Indication: FOR HIGH CHOLESTEROL OUTPT EMPAGLIFLOZIN 25MG TAB (Status = Active) TAKE ONE TABLET BY MOUTH ONCE DAILY FOR DIABETES Rx# [id number] Last Released: 02/11/23 Qty/Days Supply: Rx Expiration Date: 02/07/24 Refills Remainin OUTPT FENOFIBRATE 145MG TAB (Status = Active) TAKE ONE TABLET BY MOUTH ONCE DAILY FOR HIGH CHOLESTEROL Rx# [id number] Last Released: 05/01/23 Qty/Days Supply: Rx Expiration Date: 04/30/24 Refills Remainin Indication: FOR HIGH CHOLESTEROL OUTPT FISH OIL 1000MG (500MG DHA/EPA) CAP (Status = On Hold) TAKE TWO CAPSULES BY MOUTH TWICE DAILY Rx# [id number] Last Released: QtDays Supply: Rx Expiration Date: 04/30/24 Refills Remainin Indication: TO REDUCE TRIGLYCERIDES OUTPT HYDROCHLOROTHIAZIDE 25MG TAB (Status = Active) TAKE ONE TABLET BY MOUTH ONCE DAILY FOR HIGH BLOOD PRESSURE Rx# [id number] Last Released: 04/30/23 Qty/Days Supply: Rx Expiration Date: 04/27/24 Refills Remainin Indication: FOR HIGH BLOOD PRESSURE OUTPT INSULIN CONC REG HUM 500 UNT/ML KWIKPEN (Status = Discontinued) INJECT DIRECTED SUBCUTANEOUSLY THREE TIMES A DAY CONCENTRATED INSULIN - 95 UNITS IN THE MORNING, 80 UNITS AT NOON AND 80 UNITS IN THE EVENING BEFORE FOOD DO NOT ADJUST DOSE WITHOUT THE CONSENT OF YOUR VETERINARY RADIOLOGIST. Rx# [id number] Last Released: 05/16/23 Qty/Days Supply: Rx Expiration Date: 03/05/24 Refills Remainin Indication: FOR DIABETES MELLITUS OUTPT INSULIN CONC REG HUM 500 UNT/ML KWIKPEN (Status = Discontinued) INJECT DIRECTED SUBCUTANEOUSLY THREE TIMES A DAY CONCENTRATED INSULIN - 95 UNITS IN THE MORNING, 80 UNITS AT NOON AND 80 UNITS IN THE EVENING BEFORE FOOD DO NOT ADJUST DOSE WITHOUT THE CONSENT OF YOUR VETERINARY RADIOLOGIST. Rx# [id number] Last Released: Qt Supply: Rx Expiration Date: 06/26/24 Refills Remainin Indication: FOR DIABETES MELLITUS OUTPT INSULIN CONC REG HUM 500 UNT/ML KWIKPEN (Status = Active) INJECT DIRECTED SUBCUTANEOUSLY THREE TIMES A DAY CONCENTRATED INSULIN - 95 UNITS IN THE MORNING, 80 UNITS AT NOON AND 80 UNITS IN THE EVENING BEFORE FOOD DO NOT ADJUST DOSE WITHOUT THE CONSENT OF YOUR VETERINARY RADIOLOGIST. Rx# [id number] Last Released: 08/14/23 Qty/Days Supply: Rx Expiration Date: 06/28/24 Refills Remainin Indication: FOR DIABETES MELLITUS OUTPT METFORMIN HCL 500MG TAB (Status = Active) TAKE ONE TABLET BY MOUTH TWICE DAILY FOR DIABETES Rx# [id number] Last Released: 02/27/23 Qty/Days Supply: Rx Expiration Date: 02/07/24 Refills Remainin OUTPT METOPROLOL SUCCINATE 25MG SA TAB (Status = Discontinued) TAKE ONE-HALF TABLET BY MOUTH ONCE DAILY FOR BLOOD PRESSURE/HEART Rx# [id number] Last Released: Qt Supply: Rx Expiration Date: 04/30/24 Refills Remainin Indication: TO PREVENT ANGINAL CHEST PAIN OUTPT METOPROLOL SUCCINATE 25MG SA TAB (Status = Active) TAKE ONE TABLET BY MOUTH ONCE DAILY FOR HIGH BLOOD PRESSURE Rx# [id number] Last Released: 08/06/23 Qty/Days Supply: Rx Expiration Date: 08/05/24 Refills Remainin Indication: FOR HIGH BLOOD PRESSURE OUTPT SPIRONOLACTONE 25MG TAB (Status = ) TAKE ONE TABLET BY MOUTH ONCE DAILY Rx# [id number] Last Released: 04/24/23 Qty/Days Supply: Rx Expiration Date: 06/26/23 Refills Remainin OUTPT VALSARTAN 320MG TAB (Status = ) TAKE ONE TABLET BY MOUTH ONCE DAILY Rx# [id number] Last Released: 09/24/22 Qty/Days Supply: Rx Expiration Date: 06/26/23 Refills Remainin SUPPLIES OUTPT ACCU-CHEK GUIDE (GLUCOSE) TEST STRIP (Status = Active) USE 1 STRIP TO TEST BLOOD SUGARS THREE TIMES A DAY FOR SENSOR FAILURE Rx# [id number] Last Released: 06/25/23 Qty/Days Supply: 300/90 Rx Expiration Date: 05/29/24 Refills Remainin OUTPT GLUCOSE SENSOR FREESTYLE VARUN 2 (Status = Active) USE 1 SENSOR DIRECTED EVERY 14 DAYS Rx# [id number] Last Released: 07/03/23 Qty/Days Supply: 07/17 Rx Expiration Date: 05/29/24 Refills RemaininFelipa thompson/ DEISY VELASCO MD STAFF PHYSICIAN Signed: 09/04/2023 12:54 DEISY VELASCO [facility] [place] [facility]
--- OUTSIDE RECORDS SUMMARY | 2024-05-29 10:28 | XMS_ITS | Encounter Summary ---
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 Name Role Phone STACEY HORTON Primary Care Provider [facility] Insurance Providers: All historical and current Section [...] STAND YON SELF May 29, [phone] [id number] Abdullahi SEVERINO PATIENT MEDICARE (WNR) MEDICARE (M) PART B Jul 18, 2012 PART B [id number] Abdullahi SEVERINO PATIENT MEDICARE (WNR) MEDICARE (M) PART B Jul 18, 2012 PART B [id number] [phone] Abdullahi SEVERINO PATIENT MEDICARE (WNR) MEDICARE (M) PART B Jul 18, 2012 PART B [id number] Abdullahi SEVERINO PATIENT MEDICARE (WNR) MEDICARE (M) PART A Dec 19, 2011 PART A [id number] Abdullahi SEVERINO PATIENT MEDICARE (WNR) MEDICARE (M) PART A Dec 19, 2011 PART A [id number] Abdullahi SEVERINO PATIENT MEDICARE (WNR) MEDICARE (M) PART A Dec 19, 2011 PART A [id number] [phone] Abdullahi SEVERINO PATIENT Selected Encounter This section includes the information on record at OR for the Encounter. Date/Time Encounter Type Encounter Description Reason Provider Source Sep 04, 2023 11:00 AM OFF/OP EST SEPTEMBER X REQ PHY/QHP PRIMARY CARE/MEDICINE ICD-10-CM I10 Essential (primary) hypertension ANNABEL WEIR Afshin Encounter Template Text not used by OR Assessments - Encounter Diagnoses This section includes the primary and secondary diagnoses documented for the Encounter. Date/Time Primary/Secondary Diagnosis Diagnosis Name Provider Source Sep 04, 2023 11:03 AM PRIMARY Essential (primary) hypertension ANNABEL WEIR [place] [facility] [place] [facility] Plan of Treatment: Future Appointments (+ 6 months) and Future Tests (+/- 45 days) The Plan of Treatment section includes future care activities for the patient from all OR treatmentfacilities. This section includes future appointments and future orders which are active, pending or scheduled. Future Appointments This section includes appointments that were scheduled to occur 6 months from the date of the Encounter, up to a maximum of 20 appointments. The data comes from all OR treatment facilities. Appointment Date/Time Appointment Type Appointme nt Facility Name Sep 05, 2023 09:00 AM AMBULATORY - MEDICINE OR C [facility] [place] [facility] Sep 09, 2023 02:00 PM AMBULATORY - NONE OR [facility] [place] [facility] September 23, 2023 11:30 AM AMBULATORY - MEDICINE OR C [facility] [place] [facility] October 04, 2023 11:00 AM AMBULATORY - MEDICINE OR C [facility] [place] [facility] Nov 20, 2023 10:00 AM AMBULATORY - MEDICINE [facility] Dec 05, 2023 10:30 AM AMBULATORY - MEDICINE [place] C [facility] [place] [facility] Dec 25, 2023 01:00 PM AMBULATORY - MEDICINE SELINAI SARAH Dec 26, 2023 10:45 AM AMBULATORY - NONE [place] [facility] [place] [facility] Dec 31, 2023 08:00 AM AMBULATORY - MEDICINE OR C [facility] [place] [facility] Jan 17, 2024 08:00 AM AMBULATORY - MEDICINE OR C [facility] [place] [facility] Feb 17, 2024 11:00 AM AMBULATORY - MEDICINE OR C [facility] [place] [facility] Mar 05, 2024 01:30 PM AMBULATORY - MEDICINE OR C NTRL TRN [facility] Lab Results: +/- 30 days of the encounter This section includes the Chemistry and Hematology Lab Results on record with OR for the patient. Radiology Reports and Pathology Reports are provided separately, in subsequent sections. Lab Results This section contains the Chemistry/Hematology Results that were resulted 30 days before or 30 daysafter the date of the Encounter. Date/Time Source Result Type Result - Unit Interpretation Reference Range Comment Aug 16, 2023 07:56 AM [facility] MICROALBUMIN CREATININE RATIO PANEL Specimen Type: URINE No comment entered. Ordering Provider: DEISY VELASCO Report Released Date/Time: May 29, 2023 12:04 PM Reporting Lab: [facility] [address] [address] Performing Lab: [facility] [address] [address] MICROALBUMIN/C REATININE RATIO 111.2 mg/g H 0-29.9 MICROALBUMIN,Q UANTITATIVE 9.3 mg/dL RR UNAVAIL CREATININE URINE 83.60 mg/dL Aug 16, 2023 07:56 AM [facility] HEMOGLOBIN A1C PANEL Specimen Type: BLOOD [...] May 29, 2023 12:04 PM Reporting [facility] [address] [address] Performing Lab: [facility] [address] [address] HEMOGLOBIN A1C 7.3 H 4.0-5.6 Aug 16, 2023 07:56 AM [facility] LIPID PANEL FASTING Specimen Type: SERUM No comment entered. Ordering Provider: DEISY VELASCO Report Released Date/Time: May 29, 2023 12:04 PM Reporting [facility] [address] [address] Performing Lab: [address] [address] CHOLESTEROL 122 mg/dL TRIGLYCERIDE 399 mg/dL H 0-150 LDL calculated Reflex to dLD L mg/dL 0-129 CHOL/HDL 3.9 HDL CHOLESTEROL 31 mg/dL L 40-60 LDL DIRECT 45 mg/dL Aug 16, 2023 07:56 AM [facility] BASIC METABOLIC PANEL (fasting) Specimen Type: SERUM No comment entered. Ordering Provider: DEISY VELASCO Report Released Date/Time: May 29, 2023 12:04 PM Reporting Lab: [facility] [address] Performing [facility]: [facility] [address] [address] UREA NITROGEN 17 mg/dL 7-25 GLUCOSE 162 [...] Sep 04, 2023 11:03 AM 55 130/60 [facility] [employer] [facility] Sep 04, 2023 10:04 AM 96.7 71 143/61 18 99 2 246 34 [place] [facility] [place] [facility] Social History: Smoking Status (Most current) and Tobacco Use (All prior to encounter date) This section includes the most current, and the historical, smoking and tobacco- related health factors from the OR facility where the Encounter took place. Current Smoking Status This section includes the most current smoking, or tobacco-related health factor, from the OR facility where the Encounter took place. Date/Time Current Smoking Status Comment [facility] Apr 05, 2023 11:30 AM VA-TOBACCO FORMER USER [place] [facility] [place] [facility] Tobacco Use History This section includes a history of the smoking, or tobacco-related health factors, that were collected on or before the date of the Encounter. The data comes from the [place] facility where the Encounter took place. Date/Time Smoking Status/Tobac co Use Comment Facility Apr 05, 2023 11:30 AM VA-TOBACCO QUIT 15 YRS OR MORE [facility] [place] [facility] Dec 28, 2021 09:30 AM VA-TOBACCO FORMER USER [place] [facility] [place] [facility] Dec 28, 2021 09:30 AM VA-TOBACCO QUIT 15 YRS OR MORE [place] [facility] [place] [facility] Dec 02, 2020 09:00 AM VA-TOBACCO FORMER USER [place] [facility] [place] [facility] Dec 02, 2020 09:00 AM VA-TOBACCO QUIT 15 YRS OR MORE [place] [facility] [place] [facility] Aug 18, 2019 03:19 PM VA-TOBACCO FORMER USER [place] [facility] [place] [facility] Aug 18, 2019 03:19 PM VA-TOBACCO QUIT 15 YRS OR MORE [place] [facility] [place] [facility] September 23, 2018 09:58 AM VA-TOBACCO FORMER USER [place] [facility] [place] [facility] September 23, 2018 09:58 AM VA-TOBACCO QUIT 15 YRS OR MORE [place] [facility] [place] [facility] September 30, 2017 09:20 AM QUIT TOBACCO USE > 7 YEARS AGO [facility] [place] [facility] Aug 20, 2016 09:17 AM QUIT TOBACCO USE > 7 YEARS AGO quit 1992 [place] [facility] [place] [facility] Jun 27, 2016 09:45 AM CURRENT SMOKER Quit 25 years ago [facility] [place] [facility] Apr 18, 2015 09:06 AM QUIT TOBACCO USE > 7 YEARS AGO quit in 1991 [facility] Mar 21, 2005 10:12 AM HISTORY OF SMOKING [facility] Mar 21, 2005 10:12 AM QUIT TOBACCO USE > 7 YEARS AGO [facility] Advance Directives: All historical and current Section Date Range: From patient's date of to the date document was created. This section includes ALL of a patient's completed or amended [place] Advance and Rescinded Directives. The entries below indicate that a directive exists for the patient, but an actual copy is not included with this document. The data comes from all [place] facilities. Date Advance Directives Provider Source Feb 04, 2019 ADVANCE DIRECTIVE CESAR LUA [facility] Encounter Notes: All associated encounter notes This section contains the clinical notes associated to the Encounter. Date/Time Encounter Note(s) Provider Source Sep 04, 2023 11:00 AM PRIMARY CARE OUTPA TIENT NOTE: LOCAL TITLE: AMBULATORY/OUTPATIENT CARE NOTE STANDARD TITLE: PRIMARY CARE OUTPATIENT NOTE DATE OF NOTE: SEP 04, 2023@11:00 ENTRY DATE: SEP 04, 2023@11:00:13 AUTHOR: ENEIDA WEIRER: URGENCY: STATUS: COMPLETED F: Walk In D/A: Vet presents to [facility] for BP check. Vet reports taking Metoprolol 25mg daily, HCTZ 25mg daily and non va Amlodipine 5mg daily. BP taken manually in right arm: 130/60 pulse 55. R: Vet left clinic [facility] Homelessness/Food Insecurity Screen: In the past 2 months, have you been living in stable housing that you own, rent, or stay in as part of a household? Yes - Living in stable housing. Are you worried or concerned that in the next 2 months you may NOT have stable housing that you own, rent, or stay in as part of a household? No - Not worried about housing near future The reports the following: Within the past 12 months, you worried whether your food would run out before you got money to buy more. Never true Within the past 12 months, the food you bought just didn't last and you didn't have money to get more. Never true RHS Screen: RHS Screen Environmental Check Upon inquiry, the individual reports that the environment is safe to proceed. Informed Consent to Screen and Document The individual consents to proceed with screening. The individual consents to documentation of responses. PRIMARY SCREEN: In the past 12 months, how often did a current or former intimate partner (e.g., boyfriend, girlfriend, , , sexual partner): 1. Scream or curse at you Never 2. Insult or talk down to you Never 3. Threaten you with harm Never 4. Physically hurt you Never 5. Force or pressure you to have sexual contact against your will, or when you were unable to say no Never ?? The HITS tool (items 1-4 above) is US copyright protected by Bryan Diallo MD, and the user has full rights to use it throughout the OR system. PRIMARY SCREEN RESULT: The Primary Screen is NEGATIVE. The individual answered never to all forms of IPV above (i.e., answered never to all 5 items) The individual accepts education and/or resources: No EDUCATION: Other: Not interested /skinny/ Eneida REGALADO RN CNL Primary Care RN Signed: 09/04/2023 11:03 ENEIDA WEIR CNTL [facility]
--- OUTSIDE RECORDS SUMMARY | 2024-05-29 10:28 | XMS_ITS | Encounter Summary ---
Author Name [facility] [place] Organization [facility] [place] Address [address] [place] [address] Care Team Providers Care Ruling Technician Name Role Phone STACEY HORTON Primary Care Provider [facility] Insurance Providers: All historical and [...] STAND YON SELF May 29, 2001 104 [id number] Abdullahi SEVERINO PATIENT MEDICARE (WNR) MEDICARE (M) PART B Jul 18, 2012 PART B [id number] Abdullahi SEVERINO PATIENT MEDICARE (WNR) MEDICARE (M) PART B Jul 18, 2012 PART B [id number] Abdullahi SEVERINO PATIENT MEDICARE (WNR) MEDICARE (M) PART B Jul 18, 2012 PART B [id number] [phone] Abdullahi SEVERINO PATIENT MEDICARE (WNR) MEDICARE (M) PART A Dec 19, 2011 PART A [id number] Abdullahi SEVERINO PATIENT MEDICARE (WNR) MEDICARE (M) PART A Dec 19, 2011 PART A [id number] Abdullahi SEVERINO PATIENT MEDICARE (WNR) MEDICARE (M) PART A Dec 19, 2011 PART A [id number] Abdullahi SEVERINO PATIENT Selected Encounter This section includes the information on record at DC for the Encounter. Date/Time Encounter Type Encounter Description Reason Provider Source Sep 02, 2023 01:53 PM HC PRO PHONE CALL 5-10 MIN TELEPHONE/MEDICIN E ICD-10-CM I10 Essential (primary) hypertension [facility] Encounter Template Text not used by DC Assessments - Encounter Diagnoses This section includes the primary and secondary diagnoses documented for the Encounter. Date/Time Primary/Secondary Diagnosis Diagnosis Name Provider Source Sep 02, 2023 01:53 PM PRIMARY Essential (primary) hypertension RISA,BRE [facility] [place] [facility] Sep 02, 2023 01:53 PM SECONDARY Type 2 diabetes mellitus without complications ORIENTKRISTIE [facility] [place] [facility] Plan of Treatment: Future Appointments (+ 6 months) and Future Tests (+/- 45 days) The Plan of Treatment section includes future care activities for the patient from all [place] treatmentfacilities. This section includes future appointments and future orders which are active, pending or scheduled. Future Appointments This section includes appointments that were scheduled to occur 6 months from the date of the Encounter, up to a maximum of 20 appointments. The data comes from all [place] treatment facilities. Appointment Date/Time Appointment Type Appointme nt Facility Name Sep 04, 2023 10:00 AM AMBULATORY - MEDICINE [place] [facility] [place] [facility] Sep 04, 2023 11:00 AM AMBULATORY - MEDICINE [place] [facility] [facility] Sep 05, 2023 09:00 AM AMBULATORY - MEDICINE [place] [facility] [place] [facility] Sep 09, 2023 02:00 PM AMBULATORY - NONE [place] [facility] [place] [facility] September 23, 2023 11:30 AM AMBULATORY - MEDICINE [place] [facility] [facility] October 04, 2023 11:00 AM AMBULATORY - MEDICINE [place] [facility] [facility] Nov 20, 2023 10:00 AM [facility] Dec 05, 2023 10:30 AM AMBULATORY - MEDICINE [place] [facility] [facility] Dec 25, 2023 01:00 PM AMBULATORY - MEDICINE [facility] Dec 26, 2023 10:45 AM AMBULATORY - NONE [place] [facility] [place] [facility] Dec 31, 2023 08:00 AM AMBULATORY - MEDICINE [place] C [facility] [facility] Jan 17, 2024 08:00 AM AMBULATORY - MEDICINE [place] C [facility] [facility] Feb 17, 2024 11:00 AM AMBULATORY - [facility]ICINE [facility] Lab Results: +/- 30 days of the encounter This section includes the Chemistry and Hematology Lab Results on record with DC for the patient. Radiology Reports and Pathology Reports are provided separately, in subsequent sections. Lab Results This section contains the Chemistry/Hematology Results that were resulted 30 days before or 30 daysafter the date of the Encounter. Date/Time Source Result Type Result - Unit Interpretation Reference Range Comment Aug 16, 2023 07:56 AM [facility] MICROALBUMIN CREATININE RATIO PANEL Specimen Type: URINE No comment entered. Ordering Provider: DEISY VELASCO Report Released Date/Time: May 29, 2023 12:04 PM Reporting Lab: [address] [address] Performing Lab: [address] [address] MICROALBUMIN/C REATININE RATIO 111.2 mg/g H 0-29.9 MICROALBUMIN,Q UANTITATIVE 9.3 mg/dL RR UNAVAIL CREATININE URINE 83.60 mg/dL Aug 16, 2023 07:56 AM [facility] W[facility] HEMOGLOBIN A1C PANEL Specimen Type: BLOOD [...] May 29, 2023 12:04 PM Reporting Lab: [address] [address] Performing Lab: [address] [address] HEMOGLOBIN A1C 7.3 H 4.0-5.6 Aug 16, 2023 07:56 AM [facility] LIPID PANEL FASTING Specimen Type: SERUM No comment entered. Ordering Provider: DEISY VELASCO Report Released Date/Time: May 29, 2023 12:04 PM Reporting Lab: [address] [address] Performing Lab: [address] [address] CHOLESTEROL 122 mg/dL TRIGLYCERIDE 399 mg/dL H 0-150 LDL calculated Reflex to dLD L mg/dL 0-129 CHOL/HDL 3.9 HDL CHOLESTEROL 31 mg/dL L 40-60 LDL DIRECT 45 mg/dL Aug 16, 2023 07:56 AM [facility] BASIC METABOLIC PANEL (fasting) Specimen Type: SERUM No comment entered. Ordering Provider: DEISY VELASCO Report Released Date/Time: May 29, 2023 12:04 PM Reporting Lab: [address] [address] Performing Lab: [address] [address] UREA NITROGEN 17 mg/dL 7-25 GLUCOSE 162 [...] and tobacco- related health factors from the [place] facility where the Encounter took place. Current Smoking Status This section includes the most current smoking, or tobacco-related health factor, from the [place] facility where the Encounter took place. Date/Time Current Smoking Status Comment [facility] Apr 05, 2023 11:30 AM VA-TOBACCO FORMER USER [place] [facility] [place] [facility] Tobacco Use History This section includes a history of the smoking, or tobacco-related health factors, that were collected on or before the date of the Encounter. The data comes from the [place] facility where the Encounter took place. Date/Time Smoking Status/Tobac co Use Comment Facility Apr 05, 2023 11:30 AM VA-TOBACCO QUIT 15 YRS OR MORE [place] [facility] [place] [facility] Dec 28, 2021 09:30 AM VA-TOBACCO FORMER USER [place] [facility] [place] [facility] Dec 28, 2021 09:30 AM VA-TOBACCO QUIT 15 YRS OR MORE [place] [facility] [place] [facility] Dec 02, 2020 09:00 AM VA-TOBACCO FORMER USER [place] [facility] [place] [facility] Dec 02, 2020 09:00 AM VA-TOBACCO QUIT 15 YRS OR MORE [place] [facility] [place] [facility] Aug 18, 2019 03:19 PM VA-TOBACCO FORMER USER [place] [facility] [place] [facility] Aug 18, 2019 03:19 PM VA-TOBACCO QUIT 15 YRS OR MORE [place] [facility] [place] [facility] September 23, 2018 09:58 AM VA-TOBACCO FORMER USER [place] [facility] [place] [facility] September 23, 2018 09:58 AM VA-TOBACCO QUIT 15 YRS OR MORE [place] [facility] [place] [facility] September 30, 2017 09:20 AM QUIT TOBACCO USE > 7 YEARS AGO [place] [facility] [place] [facility] Aug 20, 2016 09:17 AM QUIT TOBACCO USE > 7 YEARS AGO quit 1991 [place] [facility] [place] [facility] Jun 27, 2016 09:45 AM CURRENT SMOKER Quit 25 years ago [place] [facility] [place] [facility] Apr 18, 2015 09:06 AM QUIT TOBACCO USE > 7 YEARS AGO quit in 1991 [place] [facility] [facility] Mar 21, 2005 10:12 AM H[facility]ORY OF SMOKING [facility] Mar 21, 2005 10:12 AM QUIT TOBACCO USE > 7 YEARS AGO [facility] Advance Directives: All historical and current Section Date Range: From patient's date of to the date document was created. This section includes ALL of a patient's completed or amended [place] Advance and Rescinded Directives. The entries below indicate that a directive exists for the patient, but an actual copy is not included with this document. The data comes from all [place] facilities. Date Advance Directives Provider Source Feb 04, 2019 [facility] Encounter Notes: All associated encounter notes This section contains the clinical notes associated to the Encounter. Date/Time Encounter Note(s) Provider Source Sep 02, 2023 01:53 PM CARE COORDINATION HOME TELEHEALTH FOLLOW-UP NOTE: LOCAL TITLE: HT INTERVENTION NOTE STANDARD TITLE: CARE COORDINATION HOME TELEHEALTH FOLLOW-UP NOTE DATE OF NOTE: SEP 02, 2023@13:53 ENTRY DATE: SEP 02, 2023@13:54:03 AUTHOR: TOÑO LORD EXP COSIGNER: URGENCY: STATUS: COMPLETED [place] is actively enrolled in the Home Telehealth program. Review of data shows the following out of range responses: HT ALERT: Low Heart rate 49 09/02/23 CARL SEVERINO (-[id number]) Glucose Data for: 08/04/2023 - 09/02/2023 (All Times are EST) Primary DMP: DM Comorbid(s): HTN === Early AM Morning Midday Evening Night Summary 00:00-06:00 06:00-11:00 11:00-16:00 16:00-21:00 21:00-00:00 === High 82 235 222 90 Low 82 91 79 85 Average 82 160 150 88 Average All Readings: 147 === Early AM Morning Midday Evening Night Date 00:00-06:00 06:00-11:00 11:00-16:00 16:00-21:00 21:00-00:00 === 09/01 79 (13:20) 08/31 139 (13:17) 08/30 82 (04:00) 08/29 120 (12:10) 08/28 132 (12:00) 08/27 175 (08:20) 08/26 115 (10:16) 08/25 115 (08:15) 08/24 115 (11:00) 90 (16:45) 08/22 159 (08:00) 08/21 85 (17:02) 08/20 170 (07:24) 08/19 167 (10:00) 08/18 91 (07:50) 08/15 137 (12:20) 08/14 160 (10:45) 181 (09:32) 08/13 222 (14:10) 08/12 137 (07:28) 08/11 220 (13:07) 08/10 157 (11:14) 08/09 146 (13:30) 08/08 210 (09:59) 08/07 167 (11:00) 08/06 235 (08:09) 08/05 181 (12:09) 08/04 138 (15:00) 08/03 149 (11:41) Source: [employer]; [employer] HEMOGLOBIN A1C TREND Collection DT Spec HGBA1c 08/16/2023 07:56 BLOOD 7.3 H 04/25/2023 08:45 BLOOD 6.7 H 01/22/2023 09:03 BLOOD 8.0 H 10/18/2022 10:16 BLOOD 7.7 H 06/22/2022 08:29 BLOOD 8.4 H CARL SEVERINO (-[id number]) Vital Sign for: 08/04/2023 - 09/02/2023 (All times are EST; All weights are lbs) Primary DMP: DM Comorbid(s): HTN Summary Weight Sys BP Krishnamurthy BP HR High 174 85 79 Low 108 51 44 Average 146 70 57 Date Time Wt Time Sys Krishnamurthy HR 09/02/2023 13:21 140/65 48 09/01/2023 13:31 146/69 62 08/31/2023 04:12 132/65 46 08/30/2023 12:17 174/77 53 08/29/2023 12:14 154/53 67 08/28/2023 08:31 156/75 51 08/27/2023 11:18 136/64 45 08/26/2023 08:31 143/85 68 08/25/2023 17:06 151/73 60 08/25/2023 11:49 148/76 53 08/23/2023 08:12 151/65 51 08/22/2023 20:02 168/74 56 08/22/2023 17:11 165/73 56 08/21/2023 07:42 148/71 51 08/20/2023 10:10 144/66 47 08/19/2023 08:05 139/51 44 08/16/2023 12:29 159/73 64 08/15/2023 14:13 159/74 55 08/15/2023 10:55 146/63 48 08/15/2023 09:47 151/64 52 08/14/2023 14:40 163/73 51 08/13/2023 07:37 132/70 52 08/12/2023 13:20 132/64 56 08/11/2023 11:23 140/67 57 08/10/2023 13:43 144/78 55 08/09/2023 10:07 108/71 68 08/08/2023 11:07 120/75 70 08/07/2023 08:19 157/75 64 08/06/2023 12:16 128/68 79 08/05/2023 15:09 151/76 63 08/04/2023 11:50 126/66 71 Source: [employer]; [employer] Assessment: Called , identified by full name/. Reviewed above Vitals. states I knew you would be calling today. I am feeling fine and I did not even know that my heart rate was low until I checked it . [place] denies any s/s of bradycardia. states I have an appointment with my PCP and Endocrinology tomorrow. Destiney is due for 6 month RPM-HT Periodic Review. [place] expressed he would like to stay on this program since it is helping him stay aware and in better controlv of his health. agreeable to telephone appointment 09/10/23 at 9 am for this review. 09/04/2023 10:00 NHM/ENDOCRINE 09/05/2023 09:00 COM CARE-ORTHO SURGICAL 09/09/2023 14:00 CWM/SO/SLEEP DME/WITH EDU 10/04/2023 11:00 CWM/NO/PACT 7 11/20/2023 10:00 CWM/SO/DIABETES EDU1 Intervention(s)/Plan: Teach s/s of HTN/Bradycardia and when to call 911 Encouraged [place] to maintain low sodium/consistant carb diet with adequate hydration. Teaching provided for the importance of Sodium intake to remain <1500 mg/day. Encouraged to complete 15 minutes of gentle exercise per day as tolerated TYPE OF ENCOUNTER: Telephone Length of call: 5-10 minutes /skinny/ TOÑO LORD RN [facility]-Home Telehealth Right Of Way Agent Signed: 09/02/2023 14:04 TOÑO LORD [place] CNTRL [facility]im[facility]hu [facility]
--- OUTSIDE RECORDS SUMMARY | 2024-05-29 10:28 | XMS_ITS | Encounter Summary ---
Author Name [facility] [place] [facility] [place] Organization [facility] [place] Address [address] [place] [address] Care Team Providers Care Casing Tier Name Role Phone STACEY AGGARWAL Primary Care Provider [facility] Insurance Providers: All historical and current [...] STAND YON SELF May 29, [phone] [id number] Abdullahi SEVERINO PATIENT MEDICARE (WNR) MEDICARE (M) PART B Jul 18, 2012 PART B [id number] [phone] Abdullahi SEVERINO PATIENT MEDICARE (WNR) MEDICARE (M) PART B Jul 18, 2012 PART B [id number] Abdullahi SEVERINO PATIENT MEDICARE (WNR) MEDICARE (M) PART B Jul 18, 2012 PART B [id number] Abdullahi SEVERINO PATIENT MEDICARE (WNR) MEDICARE (M) PART A Dec 19, 2011 PART A [id number] Abdullahi SEVERINO PATIENT MEDICARE (WNR) MEDICARE (M) PART A Dec 19, 2011 PART A [id number] Abdullahi SEVERINO PATIENT MEDICARE (WNR) MEDICARE (M) PART A Dec 19, 2011 PART A [id number] Abdullahi SEVERINO PATIENT Selected Encounter This section includes the information on record at [place] for the Encounter. Date/Time Encounter Type Encounter Description Reason Provider Source October 04, 2023 11:00 AM OFFICE O/P EST LOW 20 MIN PRIMARY CARE/MEDICINE ICD-10-CM M25.569 Pain in unspecified knee GILL AGGARWAL AM Afshin Encounter Template Text not used by [place] Assessments - Encounter Diagnoses This section includes the primary and secondary diagnoses documented for the Encounter. Date/Time Primary/Secondary Diagnosis Diagnosis Name Provider Source October 04, 2023 11:17 AM PRIMARY Pain in unspecified knee AGAGRWAL[facility]WILL [facility] [place] [facility] October 04, 2023 11:17 AM SECONDARY Chronic kidney disease, stage 1 AGGARWAL,WILL [facility] October 04, 2023 11:17 AM SECONDARY Essential (primary) hypertension AGGARWAL,WILL [facility] [place] [facility] October 04, 2023 11:17 AM SECONDARY Heart disease, unspecified AGGARWAL,WILL [facility] October 04, 2023 11:17 AM SECONDARY Obstructive sleep apnea (adult) (pediatric) AGGARWAL,WILL [facility] [place] [facility] October 04, 2023 11:17 AM SECONDARY Type 2 diabetes mellitus w diabetic chronic kidney disease AGGARWAL,WILL [facility] October 04, 2023 11:17 AM SECONDARY Type 2 diabetes mellitus without complications AGGARWAL,WILL [facility] Plan of Treatment: Future Appointments (+ [...] Date/Time Appointment Type Appointme nt Facility Name Nov 20, 2023 10:00 AM AMBULATORY - MEDICINE [facility] Dec 05, 2023 10:30 AM AMBULATORY - MEDICINE [place] [facility] Dec 25, 2023 01:00 PM AMBULATORY - MEDICINE [facility] Dec 26, 2023 10:45 AM AMBULATORY - NONE [place] [facility] [place] [facility] Dec 31, 2023 08:00 AM AMBULATORY - MEDICINE [place] C [place] [facility] Jan 17, 2024 08:00 AM AMBULATORY - MEDICINE [place] [facility] Feb 17, 2024 11:00 AM AMBULATORY - MEDICINE [place] C [place] [facility] Mar 05, 2024 01:30 PM AMBULATORY - MEDICINE [place] C [place] [facility] Mar 25, 2024 01:00 PM AMBULATORY - MEDICINE [facility] Vital Signs: All taken on the encounter date This section contains inpatient and outpatient Vital Signs collected on the date of the Encounter. Date/Time Temperature Pulse Blood Pressure Respiratory Rate SP02 Pain Height Weight Body Mass Index Source October 04, 2023 10:49 AM 97.3 57 136/62 20 100 8 71 244 34 [facility] Social History: Smoking Status (Most [...] 11:30 AM [facility]ACCO [facility] Tobacco Use History This section includes a history of the smoking, or tobacco-related health factors, that were collected on or before the date of the Encounter. The data comes from the [place] facility where the Encounter took place. Date/Time Smoking Status/Tobac co Use Comment Facility Apr 05, 2023 11:30 AM VA-TOBACCO QUIT 15 YRS OR MORE [place] [facility] [place] [facility] Dec 28, 2021 09:30 AM VA-TOBACCO FORMER USER [place] [facility] [place] [facility] Dec 28, 2021 09:30 AM VA-TOBACCO QUIT 15 YRS OR MORE [place] [facility] [place] [facility] Dec 02, 2020 09:00 AM VA-TOBACCO FORMER USER [place] [facility] [place] [facility] Dec 02, 2020 09:00 AM VA-TOBACCO QUIT 15 YRS OR MORE [place] [facility] [place] [facility] Aug 18, 2019 03:19 PM VA-TOBACCO FORMER USER [place] [facility] [place] [facility] Aug 18, 2019 03:19 PM VA-TOBACCO QUIT 15 YRS OR MORE [place] [facility] [place] [facility] September 23, 2018 09:58 AM VA-TOBACCO FORMER USER [place] [facility] [place] [facility] September 23, 2018 09:58 AM VA-TOBACCO QUIT 15 YRS OR MORE [place] [facility] [place] [facility] September 30, 2017 09:20 AM QUIT TOBACCO USE > 7 YEARS AGO [place] [facility] [place] [facility] Aug 20, 2016 09:17 AM QUIT TOBACCO USE > 7 YEARS AGO quit 1991 [place] [facility] [place] [facility] Jun 27, 2016 09:45 AM CURRENT SMOKER Quit 25 years ago [place] [facility] [place] [facility] Apr 18, 2015 09:06 AM QUIT TOBACCO USE > 7 YEARS AGO quit in 1991 [place] [facility] [place] [facility] Mar 21, 2005 10:12 AM HISTORY OF SMOKING [place] [facility] [place] [facility] Mar 21, 2005 10:12 AM QUIT TOBACCO USE > 7 YEARS AGO [place] [facility] [facility] Advance Directives: All historical and current Section [...] Feb 04, 2019 ADVANCE DIRECTIVE CESAR LUA [place] [facility] Encounter Notes: All associated encounter notes This section contains the clinical notes associated to the Encounter. Date/Time Encounter Note(s) Provider Source October 04, 2023 11:08 AM PRIMARY CARE NURSE PRACTITIONER OUTPATIENT NOTE: LOCAL TITLE: NURSE PRACTITIONER OUTPATIENT NOTE STANDARD TITLE: PRIMARY CARE NURSE PRACTITIONER OUTPATIENT NOTE DATE OF NOTE: OCTOBER 04, 2023@11:08 ENTRY DATE: OCTOBER 04, 2023@11:08:33 AUTHOR: STACEY AGGARWAL COSIGNER: URGENCY: STATUS: COMPLETED Chief complaint: Patient is a 78 year old . HPI: Pleasant male here to follow up. Feeling well, anticipates right knee replacement soon. Also having some right arm pain wants to hold off for now but will call when ready for some PT. Allergies: DEMEROL 100MG/ML CARTRIDGE The following VA and Non-VA meds were reconciled with patient. The patient was educated on the use of the medications including indication and side effects. Active and Recently Outpatient Medications (excluding Supplies): Active Outpatient Medications Status 1) ACCU-CHEK GUIDE (GLUCOSE) TEST STRIP USE 1 STRIP TO ACTIVE TEST BLOOD SUGARS THREE TIMES A DAY FOR SENSOR FAILURE 2) ATORVASTATIN CALCIUM 80MG TAB TAKE ONE TABLET BY ACTIVE MOUTH ONCE DAILY FOR CHOLESTEROL 3) EMPAGLIFLOZIN 25MG TAB TAKE ONE TABLET BY MOUTH ONCE ACTIVE DAILY FOR DIABETES 4) FENOFIBRATE 145MG TAB TAKE ONE TABLET BY MOUTH ONCE ACTIVE DAILY FOR HIGH CHOLESTEROL 5) FISH OIL 1000MG (500MG DHA/EPA) CAP TAKE TWO CAPSULES HOLD BY MOUTH TWICE DAILY 6) HYDROCHLOROTHIAZIDE 25MG TAB TAKE ONE TABLET BY MOUTH ACTIVE (S) ONCE DAILY FOR HIGH BLOOD PRESSURE 7) INSULIN CONC REG HUM 500 UNT/ML KWIKPEN INJECT ACTIVE DIRECTED SUBCUTANEOUSLY THREE TIMES A DAY 90 UNITS BREAKFAST, 75 UNITS LUNCH, AND 75 UNITS DINNER. 8) METFORMIN HCL 500MG TAB TAKE ONE TABLET BY MOUTH ACTIVE TWICE DAILY FOR DIABETES 9) METOPROLOL SUCCINATE 25MG SA TAB TAKE ONE TABLET BY ACTIVE MOUTH ONCE DAILY FOR HIGH BLOOD PRESSURE 10) SEMAGLUTIDE 0.25MG/0.375ML INJ PEN 3ML INJECT 0.25MG ACTIVE SUBCUTANEOUSLY ONCE A WEEK Active Non-VA Medications Status 1) Non-VA AMLODIPINE BESYLATE 5MG TAB 5MG BY MOUTH ONCE ACTIVE DAILY 2) Non-VA ASPIRIN 81MG EC TAB 81MG BY MOUTH ONCE DAILY ACTIVE 12 Total Medications Review of Systems: Constitutional: (-)for Fevers, chills, weakness, nights sweats On examination: 97.3 F [36.3 C] (10/04/2023 10:49)136/62 (10/04/2023 10:49)57 (10/04/2023 10:49)20 (10/04/2023 10:49)8 (10/04/2023 10:49)BMI: 34.1244 lb [110.68 kg] (10/04/2023 10:49) is alert and oriented X3 Neck: supple without masses, trachea midline, ln not palpable, no thyromegaly Cardiovasc: 2plus carotids without bruits, no JVD Heart Reguler rate and rhythm NL S1S2 no S3 or murmur Respiration: Normal respiratory effort, lungs clear ABD: Benign normal active bowel sounds no HSM no rebound or referred pain EXT: no clubbing, edema, or cyanosis All diagnostics from past month were reviewed with patient. Assessment/plan: Active problems - Computerized Problem List is the source for the followin. Diabetes mellitus type 2 - STABLE, follows DM clinic 2. 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 Obstructive sleep apnea syndrome - uses cpap 4. Arteriosclerotic heart disease - stable follows non va cardiology 5. Benign essential hypertension (SNOMED CT [id number]) - well controlled 6. bilat knee OA - replacements pending Review of medial record = 5mins Time spent with Patient including shared decision making = 20 mins Post visit documentation = 5mins Total time = 30 mins Follow up visit in 6 mos. Alert to PACT RN - Labs as necessary to address clinical status. Medication Reconciliation: Outpatient: Has the patient been taking medications as documented in the EMLR? YES: The patient has been taking medications as documented in the EMLR. Essential Medication List for Review used to complete this medication reconciliation. INCLUDED IN THIS LIST: Alphabetical list of active outpatient prescriptions dispensed from this DC (local) and dispensed from another DC or [facility] facility (remote) as well as inpatient orders [...] whether with a VA or non-VA provider. Sexual Orientation: The patient thinks of their sexual orientation as: Straight or Heterosexual /skinny/ Stacey Aggarwal DNP, DOUBLE SPINDLE SHAPER OPERATOR-BC, CNL Primary Care Nurse Practitioner Signed: 10/04/2023 11:17 [facility] October 04, 2023 10:53 AM PREVENTIVE MEDICINE NURSING NOTE: LOCAL TITLE: CLINICAL REMINDERS/NURSING STANDARD TITLE: PREVENTIVE MEDICINE NURSING NOTE DATE OF NOTE: OCTOBER 04, 2023@10:53 ENTRY DATE: OCTOBER 04, 2023@10:53:12 AUTHOR: BRETT BEAN EXP COSIGNER: URGENCY: STATUS: COMPLETED Falls & Incontinence Screen: Falls Screen: 4. No falls within the past year. Incontinence Screen No incontinence. /skinny/ [facility] [employer] BOOKY,PRIMARY CARE Signed: 10/04/2023 10:53 [facility] Aug 23, 2023 03:26 PM PRIMARY CARE NURSE PRACTITIONER OUTPATIENT NOTE: LOCAL TITLE: NURSE PRACTITIONER OUTPATIENT NOTE STANDARD TITLE: PRIMARY CARE NURSE PRACTITIONER OUTPATIENT NOTE DATE OF NOTE: AUG 23, 2023@15:26 ENTRY DATE: AUG 23, 2023@15:26:57 AUTHOR: STACEY AGGARWAL EXP COSIGNER: URGENCY: STATUS: COMPLETED I was alerted by [facility] there has been some low HRs since adjusting BB. I called and spoke with him, he says he is feel well, no issues with any dizziness or lightheadedness. We will leave things as is. [facility] /skinny/ Stacey Aggarwal DNP, DOUBLE SPINDLE SHAPER OPERATOR-BC, CNL Primary Care Nurse Practitioner Signed: 08/23/2023 15:28 STACEY AGGARWAL [facility]
--- OUTSIDE RECORDS SUMMARY | 2024-05-29 10:28 | XMS_ITS | Encounter Summary ---
Author Name [facility] [place] [facility] [place] Organization [facility] [place] Address [address] [place] [address] Care Team Providers Care Hand Folder Name Role Phone STACEY HORTON Primary Care [...] STAND YON SELF May 29, [phone] [id number] Abdullahi SEVERINO PATIENT MEDICARE (WNR) MEDICARE (M) PART B Jul 18, 2012 PART B [id number] Abdullahi SEVERINO PATIENT MEDICARE (WNR) MEDICARE (M) PART B Jul 18, 2012 PART B [id number] [phone] Abdullahi SEVERINO PATIENT MEDICARE (WNR) MEDICARE (M) PART B Jul 18, 2012 PART B [id number] Abdullahi SEVERINO PATIENT MEDICARE (WNR) MEDICARE (M) PART A Dec 19, 2011 PART A [id number] [phone] Abdullahi SEVERINO PATIENT MEDICARE (WNR) MEDICARE (M) PART A Dec 19, 2011 PART A [id number] Abdullahi SEVERINO PATIENT MEDICARE (WNR) MEDICARE (M) PART A Dec 19, 2011 PART A [id number] Abdullahi SEVERINO PATIENT Selected Encounter This section includes the information on record at [place] for the Encounter. Date/Time Encounter Type Encounter Description Reason Provider Source Sep 09, 2023 02:00 PM SELF-MGMT EDUC/TRAIN 5-8 PT SLEEP MEDICINE ICD-10-CM G47.33 Obstructive sleep apnea (adult) (pediatric) LA JUNG [facility] Encounter Template Text not used by [place] Assessments - Encounter Diagnoses This section includes the primary and secondary diagnoses documented for the Encounter. Date/Time Primary/Secondary Diagnosis Diagnosis Name Provider Source Sep 09, 2023 02:58 PM PRIMARY Obstructive sleep apnea (adult) (pediatric) LA JUNG GRUNDY Plan of Treatment: Future Appointments (+ 6 months) and Future Tests (+/- 45 days) The Plan of Treatment section includes future care activities for the patient from all [place] treatmentfacilities. This section includes future appointments and future orders which are active, pending or scheduled. Future Appointments This section includes appointments that were scheduled to occur 6 months from the date of the Encounter, up to a maximum of 20 appointments. The data comes from all [place] treatment facilities. Appointment Date/Time Appointment Type Appointme nt Facility Name September 23, 2023 11:30 AM AMBULATORY - MEDICINE [place] [facility] October 04, 2023 11:00 AM AMBULATORY - MEDICINE [place] C [place] [facility] Nov 20, 2023 10:00 AM AMBULATORY - MEDICINE [facility] Dec 05, 2023 10:30 AM AMBULATORY - MEDICINE [place] C [place] [facility] Dec 25, 2023 01:00 PM AMBULATORY - MEDICINE [place] [place] Dec 26, 2023 10:45 AM AMBULATORY - NONE [place] [place] [facility] Dec 31, 2023 08:00 AM AMBULATORY - MEDICINE [place] C [place] [facility] Jan 17, 2024 08:00 AM AMBULATORY - [facility]IC[facility] Feb 17, 2024 11:00 AM [facility]UL[facility] - [facility] [place] [facility] Mar 05, 2024 01:30 PM [facility]BULAT[facility] Lab Results: +/- 30 days of the encounter This section includes the Chemistry and Hematology Lab Results on record with [place] for the patient. Radiology Reports and Pathology Reports are provided separately, in subsequent sections. Lab Results This section contains the Chemistry/Hematology Results that were resulted 30 days before or 30 daysafter the date of the Encounter. Date/Time Source Result Type Result - Unit Interpretation Reference Range Comment Aug 16, 2023 07:56 AM [facility] MICROALBUMIN CREATININE RATIO PANEL Specimen Type: URINE No comment entered. Ordering Provider: DEISY VELASCO Report Released Date/Time: May 29, 2023 12:04 PM Reporting Lab: [address] [address] Performing Lab: [facility] [address] [address] MICROALBUMIN/C REATININE RATIO 111.2 mg/g H 0-29.9 MICROALBUMIN,Q UANTITATIVE 9.3 mg/dL RR UNAVAIL CREATININE URINE 83.60 mg/dL Aug 16, 2023 07:56 AM [facility] HEMOGLOBIN A1C PANEL Specimen Type: BLOOD Comment: Values obtained from A1C measurements can vary. For atypical A1C assays, a reported value of 7.0 could actually be between 6.72 and 7.28 if measured by a reference method. A reported value of 9.0 could actually be between 8.73 and 9.27. Ref: http://www.ngs p.org/CAPdata. asp Ordering Provider: DEISY VELSACO Report Released Date/Time: May 29, 2023 12:04 PM Reporting Lab: [facility] [address] [address] Performing Lab: [address] [address] HEMOGLOBIN A1C 7.3 H 4.0-5.6 Aug 16, 2023 07:56 AM [facility] LIPID PANEL FASTING Specimen Type: SERUM No comment entered. Ordering Provider: DEISY VELASCO Report Released Date/Time: May 29, 2023 12:04 PM Reporting Lab: [facility] [address] [address] Performing Lab: [address] [address] CHOLESTEROL 122 mg/dL TRIGLYCERIDE 399 mg/dL H 0-150 LDL calculated Reflex to dLD L mg/dL 0-129 CHOL/HDL 3.9 HDL CHOLESTEROL 31 mg/dL L 40-60 LDL DIRECT 45 mg/dL Aug 16, 2023 07:56 AM [facility] BASIC METABOLIC PANEL (fasting) Specimen Type: SERUM No comment entered. Ordering Provider: DEISY VELASCO Report Released Date/Time: May 29, 2023 12:04 PM Reporting Lab: [address] [address] Performing Lab: [address] [address] UREA NITROGEN 17 mg/dL 7-25 GLUCOSE 162 [...] ALL of a patient's completed or amended [place] Advance and Rescinded Directives. The entries below indicate that a directive exists for the patient, but an actual copy is not included with this document. The data comes from all [place] facilities. Date Advance Directives Provider Source Feb 04, 2019 ADVANCE DIRECTIVE CESAR LUA [facility] Encounter Notes: All associated encounter notes This section contains the clinical notes associated to the Encounter. Date/Time Encounter Note(s) Provider Source Sep 09, 2023 02:48 PM RESPIRATORY THERAP Y NOTE: LOCAL TITLE: RESPIRATORY THERAPY NOTE(BLANK) STANDARD TITLE: RESPIRATORY THERAPY NOTE DATE OF NOTE: SEP 09, 2023@14:48 ENTRY DATE: SEP 09, 2023@14:48:34 AUTHOR: LA JUNG EXP COSIGNER: URGENCY: STATUS: COMPLETED [place] diagnosed with sleep apnea was seen in clinic for power issue. [place] had device shutting off. Explained that it is most likely the smart stop feature and we went through his my options menu and shut and he was showed how- to turn it off. [place] had an issue with the power cord and was issued a replacement. has clinic contact and was encouraged to call with any issues. Data check in 2 weeks. /skinny/ LA JUNG RESPIRATORY THERAPIST Signed: 09/09/2023 15:00 LA JUNG GRUNDY
--- OUTSIDE RECORDS SUMMARY | 2024-05-29 10:28 | XMS_ITS | Encounter Summary ---
Author Name [facility] [place] [facility] [place] Address [address] [place] [address] Care Team Providers Care Magneto Specialist Name Role Phone STACEY AGGARWAL Primary Care [...] STAND YON SELF May 29, [phone] [id number] Abdullahi SEVERINO PATIENT MEDICARE (WNR) MEDICARE (M) PART B Jul 18, 2012 PART B [id number] Abdullahi SEVERINO PATIENT MEDICARE (WNR) MEDICARE (M) PART B Jul 18, 2012 PART B [id number] Abdullahi SEVERINO PATIENT MEDICARE (WNR) MEDICARE (M) PART B Jul 18, 2012 PART B [id number] Abdullahi SEVERINO PATIENT MEDICARE (WNR) MEDICARE (M) PART A Dec 19, 2011 PART A [id number] [phone] Abdullahi SEVERINO PATIENT MEDICARE (WNR) MEDICARE (M) PART A Dec 19, 2011 PART A [id number] [phone] Abdullahi SEVERINO PATIENT MEDICARE (WNR) MEDICARE (M) PART A Dec 19, 2011 PART A [id number] Abdullahi SEVERINO PATIENT Selected Encounter This section includes the information on record at [place] for the Encounter. Date/Time Encounter Type Encounter Description Reason Pro vider Source Aug 05, 2023 01:17 PM Outpatient Encounter TELEPHONE PRIMARY CARE IHE Encounter Template Text not used by [place] Plan of Treatment: Future Appointments (+ 6 months) and Future Tests (+/- 45 days) The Plan of Treatment section includes future care activities for the patient from all [place] treatmentfacilities. This section includes future appointments and future orders which are active, pending or scheduled. Future Appointments This section includes appointments that were scheduled to occur 6 months from the date of the Encounter, up to a maximum of 20 appointments. The data comes from all [place] treatment facilities. Appointment Date/Time Appointment Type Appointme nt Facility Name Aug 07, 2023 10:00 AM AMBULATORY - MEDICINE [facility] Sep 04, 2023 10:00 AM AMBULATORY - [place]ICINE [place] [facility] [place] [facility] Sep 04, 2023 11:00 AM AM[place]ULATORY [place]ICINE [place] [facility] [place] [facility] Sep 05, 2023 09:00 AM AMBULATORY - MEDICINE [place] [facility] [place] [facility] Sep 09, 2023 02:00 PM AMBULATORY - NONE [facility] [place] [facility] September 23, 2023 11:30 AM AMBULATORY - MEDICINE [place] [facility] [place] [facility] October 04, 2023 11:00 AM AMBULATORY - MEDICINE [place] [facility] [place] [facility] Nov 20, 2023 10:00 AM AM[facility]ULATORY - MEDICINE [facility] Dec 05, 2023 10:30 AM AMBULATORY - MEDICINE [place] [facility] [place] [place] [facility] Dec 25, 2023 01:00 PM AMBULATORY - MEDICINE [facility] Dec 26, 2023 10:45 AM AMBULATORY - NONE [place] [facility] [place] [facility] Dec 31, 2023 08:00 AM AMBULATORY - MEDICINE [place] [facility] [place] [facility] Jan 17, 2024 08:00 AM AMBULATORY - MEDICINE [facility] Lab Results: +/- 30 days of the encounter This section includes the Chemistry and Hematology Lab Results on record with [place] for the patient. Radiology Reports and Pathology Reports are provided separately, in subsequent sections. Lab Results This section contains the Chemistry/Hematology Results that were resulted 30 days before or 30 daysafter the date of the Encounter. Date/Time Source Result Type Result - Unit Interpretation Reference Range Comment Aug 16, 2023 07:56 AM [facility] MICROALBUMIN CREATININE RATIO PANEL Specimen Type: URINE No comment entered. Ordering Provider: DEISY VELASCO Report Released Date/Time: May 29, 2023 12:04 PM Reporting Lab: [address] [address] Performing Lab: [address] [address] MICROALBUMIN/C REATININE RATIO 111.2 mg/g H 0-29.9 MICROALBUMIN,Q UANTITATIVE 9.3 mg/dL RR UNAVAIL CREATININE URINE 83.60 mg/dL Aug 16, 2023 07:56 AM [facility] HEMOGLOBIN A1C PANEL Specimen Type: BLOOD Comment: [...] May 29, 2023 12:04 PM Reporting Lab: [address] [address] Performing Lab: [address] [address] HEMOGLOBIN A1C 7.3 H 4.0-5.6 Aug 16, 2023 07:56 AM [facility] LIPID PANEL FASTING Specimen Type: SERUM No comment entered. Ordering Provider: DEISY VEALSCO Report Released Date/Time: May 29, 2023 12:04 PM Reporting Lab: [facility] [address] [facility] [address] Performing Lab: [address] [address] CHOLESTEROL 122 mg/dL TRIGLYCERIDE 399 mg/dL H 0-150 LDL calculated Reflex to dLD L mg/dL 0-129 CHOL/HDL 3.9 HDL CHOLESTEROL 31 mg/dL L 40-60 LDL DIRECT 45 mg/dL Aug 16, 2023 07:56 AM [facility] BASIC METABOLIC PANEL (fasting) Specimen Type: SERUM No comment entered. Ordering Provider: DEISY VELASCO Report Released Date/Time: May 29, 2023 12:04 PM Reporting Lab: [address] [address] Performing Lab: [address] [address] UREA NITROGEN 17 mg/dL 7-25 GLUCOSE 162 [...] and tobacco- related health factors from the [place] facility where the Encounter took place. Current Smoking Status This section includes the most current smoking, or tobacco-related health factor, from the [place] facility where the Encounter took place. Date/Time Current Smoking Status Comment Therese duffy Apr 05, 2023 11:30 AM VA-TOBACCO FORMER USER [facility] Tobacco Use History This section includes a history of the smoking, or tobacco-related health factors, that were collected on or before the date of the Encounter. The data comes from the [place] facility where the Encounter took place. Date/Time Smoking Status/Tobac co Use Comment Facility Apr 05, 2023 11:30 AM VA-TOBACCO QUIT 15 YRS OR MORE [place] [facility] [place] [facility] Dec 28, 2021 09:30 AM VA-TOBACCO FORMER USER [facility] [place] [facility] Dec 28, 2021 09:30 AM VA-TOBACCO QUIT 15 YRS OR MORE [facility] [place] [facility] Dec 02, 2020 09:00 AM VA-TOBACCO FORMER USER [facility] [place] [facility] Dec 02, 2020 09:00 AM VA-TOBACCO QUIT 15 YRS OR MORE [place] [facility] [place] [facility] Aug 18, 2019 03:19 PM VA-TOBACCO FORMER USER [facility] [place] [facility] Aug 18, 2019 03:19 PM VA-TOBACCO QUIT 15 YRS OR MORE [place] [facility] [place] [facility] September 23, 2018 09:58 AM VA-TOBACCO FORMER USER [place] [facility] [place] [facility] September 23, 2018 09:58 AM VA-TOBACCO QUIT 15 YRS OR MORE [place] [facility] [place] [facility] September 30, 2017 09:20 AM QUIT TOBACCO USE > 7 YEARS AGO [place] [facility] [place] [facility] Aug 20, 2016 09:17 AM QUIT TOBACCO USE > 7 YEARS AGO quit 1991 [place] [facility] [place] [facility] Jun 27, 2016 09:45 AM CURRENT SMOKER Quit 25 years ago [place] [facility] [place] [facility] Apr 18, 2015 09:06 AM QUIT TOBACCO USE > 7 YEARS AGO quit in 1991 [place] [facility] [place] [facility] Mar 21, 2005 10:12 AM HISTORY OF SMOKING [place] [facility] [place] [facility] Mar 21, 2005 10:12 AM QUIT TOBACCO USE > 7 YEARS AGO [place] [facility] [place] [facility] Advance Directives: All historical and current Section Date Range: From patient's date of to the date document was created. This section includes ALL of a patient's completed or amended [place] Advance and Rescinded Directives. The entries below indicate that a directive exists for the patient, but an actual copy is not included with this document. The data comes from all [place] facilities. Date Advance Directives Provider Source Feb 04, 2019 ADVANCE DIRECTIVE CESAR LUA [place] [facility] [place] [facility] [place] [facility] Encounter Notes: All associated encounter notes This section contains the clinical notes associated to the Encounter. Date/Time Encounter Note(s) Provider Source Aug 05, 2023 01:17 PM CARE COORDINATION HOME TELEHEALTH NOTE: LOCAL TITLE: HT NOTE STANDARD TITLE: CARE COORDINATION HOME TELEHEALTH NOTE DATE OF NOTE: AUG 05, 2023@13:17 ENTRY DATE: AUG 23, 2023@16:47:33 AUTHOR: COSTA PURVIS EXP COSIGNER: URGENCY: STATUS: COMPLETED HT NOTE Has ADDENDA Stanley is actively enrolled in the Home Telehealth program. Review of data shows the following out of range responses: CARL SEVERINO (-[id number]) Vital Sign for: 07/25/2023 - 08/05/2023 (All times are EST; All weights are lbs) Primary DMP: DM Comorbid(s): HTN Date Time Wt Time Sys Krishnamurthy HR Time Glu Time Pain = 08/05/2023 15:09 151/76 63 15:00 138 08/04/2023 [...] 130/69 67 14:03 211 14:14 5 Source: [employer]; [employer] Attempted call to to review elevated BP readings, 187/97 pm 3. Has since normalized to 126/66, HR 71. No answer. Left message requesting a return call. Forward updates to PCP for review. /skinny/ COSTA TOLLIVER MSN, RN, CNL RPM-HOME TELEHEALTH Signed: 08/23/2023 16:50 08/05/2023 ADDENDUM STATUS: COMPLETED please let Stanley, i suggest increasing metoprolol succ from 12.5mg daily to 25mg daily. I have placed new order. Suggest nurse visit in 3-4 weeks to check BP and HR. /skinny/ Stacey Aggarwal DNP, CHICKEN SEXER-BC, CNL Primary Care Nurse Practitioner Signed: 08/05/2023 13:28 Receipt Acknowledged By: 08/05/2023 13:34 /skinny/ Radha Bustillo MSN RN CNL Primary Care RN 08/05/2023 ADDENDUM STATUS: COMPLETED Talked with Veyordy, reviewed above. He will come to for BP check when on campus for endo visit on 09/03 /skinny/ Radha Bustillo MSN RN CNL Primary Care RN Signed: 08/05/2023 13:34 [facility]
--- OUTSIDE RECORDS SUMMARY | 2024-05-29 10:28 | XMS_ITS | Encounter Summary ---
Author Name [facility] [place] [facility] [place] [facility] [place] Address [address] [place] [address] Care Team Providers Care Frame Assembler Name Role Phone STACEY HORTON Primary Care Provider [facility] Insurance Providers: All historical and current Section [...] STAND YON SELF May 29, [phone] [id number] Abdullahi WILEY PATIENT MEDICARE (WNR) MEDICARE (M) PART B Jul 18, 2012 PART B [id number] Abdullahi WILEY PATIENT MEDICARE (WNR) MEDICARE (M) PART B Jul 18, 2012 PART B [id number] [phone] Abdullahi WILEY PATIENT MEDICARE (WNR) MEDICARE (M) PART B Jul 18, 2012 PART B [id number] Abdullahi WILEY PATIENT MEDICARE (WNR) MEDICARE (M) PART A Dec 19, 2011 PART A [id number] Abdullahi WILEY PATIENT MEDICARE (WNR) MEDICARE (M) PART A Dec 19, 2011 PART A [id number] Abdullahi WILEY PATIENT MEDICARE (WNR) MEDICARE (M) PART A Dec 19, 2011 PART A [id number] Abdullahi WILEY PATIENT Selected Encounter This section includes the information on record at [place] for the Encounter. Date/Time Encounter Type Encounter Description Reason Provider Source Sep 04, 2023 03:23 PM CONT GLUC MNTR ANALYSIS I&R ENDOCRINOLOGY ICD-10-CM E11.9 Type 2 diabetes mellitus without complications DEISY VELASCO Afshin Encounter Template Text not used by [place] Assessments - Encounter Diagnoses This section includes the primary and secondary diagnoses documented for the Encounter. Date/Time Primary/Secondary Diagnosis Diagnosis Name Provider Source Sep 04, 2023 03:31 PM PRIMARY Type 2 diabetes mellitus without complications DEISY VELASCO [place] [facility] [facility] Plan of Treatment: Future Appointments (+ 6 months) and Future Tests (+/- 45 days) The Plan of Treatment section includes future care activities for the patient from all [place] treatmentfacilities. This section includes future appointments and future orders which are active, pending or scheduled. Future Appointments This section includes appointments that were scheduled to occur 6 months from the date of the Encounter, up to a maximum of 20 appointments. The data comes from all [place] treatment facilities. Appointment Date/Time Appointment Type Appointme nt Facility Name Sep 05, 2023 09:00 AM AMBULATORY - MEDICINE [place] [facility] [place] [facility] Sep 09, 2023 02:00 PM AMBULATORY - NONE [place] [facility] [place] [facility] September 23, 2023 11:30 AM AMBULATORY - MEDICINE [place] [facility] [place] [facility] October 04, 2023 11:00 AM AMBULATORY - MEDICINE [place] [facility] [place] [facility] Nov 20, 2023 10:00 AM AMBULATORY - MEDICINE [facility] Dec 05, 2023 10:30 AM AMBULATORY - MEDICINE [place] [facility] [place] [facility] Dec 25, 2023 01:00 PM [facility] Dec 26, 2023 10:45 AM AMBULATORY - NONE [place] [facility] [place] [facility] Dec 31, 2023 08:00 AM AMBULATORY - MEDICINE [place] [facility] [place] [facility] Jan 17, 2024 08:00 AM AMBULATORY - MEDICINE [place] [facility] [place] [facility] Feb 17, 2024 11:00 AM AMBULATORY - MEDICINE [place] [facility] [place] [facility] Mar 05, 2024 01:30 PM [facility] [place] [facility] Lab Results: +/- 30 days of the encounter This section includes the Chemistry and Hematology Lab Results on record with [place] for the patient. Radiology Reports and Pathology Reports are provided separately, in subsequent sections. Lab Results This section contains the Chemistry/Hematology Results that were resulted 30 days before or 30 daysafter the date of the Encounter. Date/Time Source Result Type Result - Unit Interpretation Reference Range Comment Aug 16, 2023 07:56 AM [facility] MICROALBUMIN CREATININE RATIO PANEL Specimen Type: URINE No comment entered. Ordering Provider: DEISY VELASCO Report Released Date/Time: May 29, 2023 12:04 PM Reporting Lab: [facility] [address] [address] Performing Lab: [facility] [address] [facility] [address] MICROALBUMIN/C REATININE RATIO 111.2 mg/g H 0-29.9 MICROALBUMIN,Q UANTITATIVE 9.3 mg/dL RR UNAVAIL CREATININE URINE 83.60 mg/dL Aug 16, 2023 07:56 AM [facility] LIPID PANEL FASTING Specimen Type: SERUM No comment entered. Ordering Provider: DEISY VELASCO Report Released Date/Time: May 29, 2023 12:04 PM Reporting Lab: [facility] [address] [facility] [facility] [address] Performing Lab: [facility] [address] [facility] [address] CHOLESTEROL 122 mg/dL TRIGLYCERIDE 399 mg/dL H 0-150 LDL calculated Reflex to dLD L mg/dL 0-129 CHOL/HDL 3.9 HDL CHOLESTEROL 31 mg/dL L 40-60 LDL DIRECT 45 mg/dL Aug 16, 2023 07:56 AM [facility] HEMOGLOBIN A1C PANEL Specimen Type: BLOOD [...] May 29, 2023 12:04 PM Reporting Lab: [facility] [address] [facility] [address] Performing Lab: [address] [address] HEMOGLOBIN A1C 7.3 H 4.0-5.6 Aug 16, 2023 07:56 AM [facility] BASIC METABOLIC PANEL (fasting) Specimen Type: SERUM No comment entered. Ordering Provider: DEISY VELASCO Report Released Date/Time: May 29, 2023 12:04 PM Reporting Lab: [facility] [address] [facility] [address] Performing Lab: [address] [address] UREA NITROGEN 17 mg/dL 7-25 GLUCOSE 162 [...] Sep 04, 2023 11:03 AM 55 130/60 [place] [employer] [facility] [employer] [facility] Sep 04, 2023 10:04 AM 96.7 71 143/61 18 99 2 246 34 [facility] [employer]oi [facility] Social History: Smoking Status (Most current) and Tobacco Use (All prior to encounter date) This section includes the most current, and the historical, smoking and tobacco- related health factors from the [place] facility where the Encounter took place. Current Smoking Status This section includes the most current smoking, or tobacco-related health factor, from the [place] facility where the Encounter took place. Date/Time Current Smoking Status Comment [facility] Apr 05, 2023 11:30 AM VA-TOBACCO FORMER USER [place] [facility] [place] [facility] Tobacco Use History This section includes a history of the smoking, or tobacco-related health factors, that were collected on or before the date of the Encounter. The data comes from the [place] facility where the Encounter took place. Date/Time Smoking Status/Tobac co Use Comment Facility Apr 05, 2023 11:30 AM VA-TOBACCO QUIT 15 YRS OR MORE [place] [facility] [place] [facility] Dec 28, 2021 09:30 AM VA-TOBACCO FORMER USER [place] [facility] [place] [facility] Dec 28, 2021 09:30 AM VA-TOBACCO QUIT 15 YRS OR MORE [place] [facility] [place] [facility] Dec 02, 2020 09:00 AM VA-TOBACCO FORMER USER [place] [facility] [place] [facility] Dec 02, 2020 09:00 AM VA-TOBACCO QUIT 15 YRS OR MORE [place] [facility] [place] [facility] Aug 18, 2019 03:19 PM VA-TOBACCO FORMER USER [place] [facility] [place] [facility] Aug 18, 2019 03:19 PM VA-TOBACCO QUIT 15 YRS OR MORE [place] [facility] [place] [facility] September 23, 2018 09:58 AM VA-TOBACCO FORMER USER [facility] [place] [facility] September 23, 2018 09:58 AM VA-TOBACCO QUIT 15 YRS OR MORE [place] [facility] [place] [facility] September 30, 2017 09:20 AM QUIT TOBACCO USE > 7 YEARS AGO [place] [facility] [place] [facility] Aug 20, 2016 09:17 AM QUIT TOBACCO USE > 7 YEARS AGO quit 1992 [place] [facility] [place] [facility] Jun 27, 2016 09:45 AM CURRENT SMOKER Quit 25 years ago [place] [facility] [place] [facility] Apr 18, 2015 09:06 AM QUIT TOBACCO USE > 7 YEARS AGO quit in 1991 [facility] Mar 21, 2005 10:12 AM HISTORY OF SMOKING [facility] Mar 21, 2005 10:12 AM QUIT TOBACCO USE > 7 YEARS AGO [facility] Advance Directives: All historical and current Section Date Range: From patient's date of to the date document was created. This section includes ALL of a patient's completed or amended [place] Advance and Rescinded Directives. The entries below indicate that a directive exists for the patient, but an actual copy is not included with this document. The data comes from all [place] facilities. Date Advance Directives Provider Source Feb 04, 2019 ADVANCE DIRECTIVE CESAR LUA [facility] Encounter Notes: All associated encounter notes This section contains the clinical notes associated to the Encounter. Date/Time Encounter Note(s) Provider Source Sep 04, 2023 03:23 PM PHYSICIAN NOTE: LOCAL TITLE: MD NOTE STANDARD TITLE: PHYSICIAN NOTE DATE OF NOTE: SEP 04, 2023@15:23 ENTRY DATE: SEP 04, 2023@15:23:41 AUTHOR: DEISY VELASCO COSIGNER: URGENCY: STATUS: COMPLETED Dx: Diabetes mellitus type 2 Pt Name: Otoniel Wiley Pt : 1945 MR# [id number] Indication for device placement Date placed: Aug 22 2023 Date removed (date to which the CPT code is linked): Sep 04 2023 Name of device placed: Freestyle lynn 2 glucose sensor date of printout of data: Date of interpretation: Sep 04 2023 Analysis of data (72 hours or more of monitoring required): Capture 66% Average 161 GMI 7.2% %CV 39.7% Very high 10% High 27% In range 60% Low 3% Very low 0% MN 180, 4AM 153, 8AM 140, noon 138, 4PM 144, 8PM 176 Variability moderate to larger. Interpretation of data He would benefit from a reduction in bfast and lunch U500, with no change in dinner U500 at this time. /skinny/ DEISY VELASCO MD STAFF PHYSICIAN Signed: 09/04/2023 15:31 DEISY VELASCO [facility]
--- OUTSIDE RECORDS SUMMARY | 2024-05-29 10:28 | XMS_ITS | Encounter Summary ---
Author Name [facility] [place] Organization [facility] [place] Address [address] [place] [address] Care Team Providers Care Computer Security Coordinator Name Role Phone STACEY HORTON Primary Care [...] STAND YON SELF May 29, [phone] [id number] Abdullahi SEVERINO PATIENT MEDICARE (WNR) MEDICARE (M) PART B Jul 18, 2012 PART B [id number] [phone] Abdullahi SEVERINO PATIENT MEDICARE (WNR) MEDICARE (M) PART B Jul 18, 2012 PART B [id number] Abdullahi SEVERINO PATIENT MEDICARE (WNR) MEDICARE (M) PART B Jul 18, 2012 PART B [id number] Abdullahi SEVERINO PATIENT MEDICARE (WNR) MEDICARE (M) PART A Dec 19, 2011 PART A [id number] Abdullahi SEVERINO PATIENT MEDICARE (WNR) MEDICARE (M) PART A Dec 19, 2011 PART A [id number] Abdullahi SEVERINO PATIENT MEDICARE (WNR) MEDICARE (M) PART A Dec 19, 2011 PART A [id number] Abdullahi SEVERINO PATIENT Selected Encounter This section includes the information on record at [place] for the Encounter. Date/Time Encounter Type Encounter Description Reason Pro vider Source Sep 06, 2023 12:32 PM Outpatient Encounter ENDOCRINOLOGY IHE Encounter Template Text not used by [place] Plan of Treatment: Future Appointments (+ 6 months) and Future Tests (+/- 45 days) The Plan of Treatment section includes future care activities for the patient from all [place] treatmentfacilities. This section includes future appointments and future orders which are active, pending or scheduled. Future Appointments This section includes appointments that were scheduled to occur 6 months from the date of the Encounter, up to a maximum of 20 appointments. The data comes from all [place] treatment facilities. Appointment Date/Time Appointment Type Appointme nt Facility Name Sep 09, 2023 02:00 PM AMBULATORY - NONE [place] [facility] [place] [facility] September 23, 2023 11:30 AM AMBULATORY - MEDICINE [place] [facility] [place] [facility] October 04, 2023 11:00 AM AMBULATORY - MEDICINE [place] [facility] [place] [facility] Nov 20, 2023 10:00 AM AMBULATORY - MEDICINE [facility] Dec 05, 2023 10:30 AM AMBULATORY - MEDICINE [facility] [place] [facility] Dec 25, 2023 01:00 PM AMBULATORY - MEDICINE [facility] Dec 26, 2023 10:45 AM AMBULATORY - NONE [place] [facility] [place] [facility] Dec 31, 2023 08:00 AM AMBULATORY - MEDICINE [facility] [place] [facility] Jan 17, 2024 08:00 AM AMBULATORY - MEDICINE [facility] [place] [facility] Feb 17, 2024 11:00 AM AMBULATORY - MEDICINE [facility] [place] [facility] Mar 05, 2024 01:30 PM AMBULATORY - MEDICINE [place] [facility] [place] [facility] Lab Results: +/- 30 days of the encounter This section includes the Chemistry and Hematology Lab Results on record with [place] for the patient. Radiology Reports and Pathology Reports are provided separately, in subsequent sections. Lab Results This section contains the Chemistry/Hematology Results that were resulted 30 days before or 30 daysafter the date of the Encounter. Date/Time Source Result Type Result - Unit Interpretation Reference Range Comment Aug 16, 2023 07:56 AM [facility] MICROALBUMIN CREATININE RATIO PANEL Specimen Type: URINE No comment entered. Ordering Provider: DEISY VELASCO Report Released Date/Time: May 29, 2023 12:04 PM Reporting Lab: [address] [address] Performing Lab: [address] [address] MICROALBUMIN/C REATININE RATIO 111.2 mg/g H 0-29.9 MICROALBUMIN,Q UANTITATIVE 9.3 mg/dL RR UNAVAIL CREATININE URINE 83.60 mg/dL Aug 16, 2023 07:56 AM [facility] HEMOGLOBIN A1C PANEL Specimen Type: BLOOD [...] 29, 2023 12:04 PM Reporting Lab: [address] [address] Performing Lab: [address] [address] HEMOGLOBIN A1C 7.3 H 4.0-5.6 Aug 16, 2023 07:56 AM [facility] LIPID PANEL FASTING Specimen Type: SERUM No comment entered. Ordering Provider: DEISY VELASCO Report Released Date/Time: May 29, 2023 12:04 PM Reporting Lab: [address] [address] Performing Lab: [facility] [address] [facility] [address] CHOLESTEROL 122 mg/dL TRIGLYCERIDE 399 mg/dL H 0-150 LDL calculated Reflex to dLD L mg/dL 0-129 CHOL/HDL 3.9 HDL CHOLESTEROL 31 mg/dL L 40-60 LDL DIRECT 45 mg/dL Aug 16, 2023 07:56 AM [facility] BASIC METABOLIC PANEL (fasting) Specimen Type: SERUM No comment entered. Ordering Provider: DEISY VELASCO Report Released Date/Time: May 29, 2023 12:04 PM Reporting Lab: [address] [phone] Performing Lab: [address] [address] UREA NITROGEN 17 mg/dL 7-25 GLUCOSE 162 [...] and tobacco- related health factors from the [place] facility where the Encounter took place. Current Smoking Status This section includes the most current smoking, or tobacco-related health factor, from the [place] facility where the Encounter took place. Date/Time Current Smoking Status Comment [facility] Apr 05, 2023 11:30 AM VA-TOBACCO FORMER USER [facility] Tobacco Use History This section includes a history of the smoking, or tobacco-related health factors, that were collected on or before the date of the Encounter. The data comes from the [place] facility where the Encounter took place. Date/Time Smoking Status/Tobac co Use Comment Facility Apr 05, 2023 11:30 AM MS-TOBACCO QUIT 15 YRS OR MORE [facility] Dec 28, 2021 09:30 AM VA-TOBACCO FORMER USER [facility] Dec 28, 2021 09:30 AM VA-TOBACCO QUIT 15 YRS OR MORE [facility] [place] [facility] Dec 02, 2020 09:00 AM VA-TOBACCO FORMER USER [place] [facility] [place] [facility] Dec 02, 2020 09:00 AM VA-TOBACCO QUIT 15 YRS OR MORE [facility] [place] [facility] Aug 18, 2019 03:19 PM VA-TOBACCO FORMER USER [place] [facility] [place] [facility] Aug 18, 2019 03:19 PM VA-TOBACCO QUIT 15 YRS OR MORE [facility] [place] [facility] September 23, 2018 09:58 AM VA-TOBACCO FORMER USER [place] [facility] [place] [facility] September 23, 2018 09:58 AM VA-TOBACCO QUIT 15 YRS OR MORE [facility] [place] [facility] September 30, 2017 09:20 AM QUIT TOBACCO USE > 7 YEARS AGO [place] [facility] [place] [facility] Aug 20, 2016 09:17 AM QUIT TOBACCO USE > 7 YEARS AGO [facility] [place] [facility] Jun 27, 2016 09:45 AM CURRENT SMOKER Quit 25 years ago [facility] [place] [facility] Apr 18, 2015 09:06 AM QUIT TOBACCO USE > 7 YEARS AGO quit [facility] 1991 [facility] [place] [facility] Mar 21, 2005 10:12 AM HISTORY OF SMOKING [facility] [place] [facility] Mar 21, 2005 10:12 AM QUIT TOBACCO USE > 7 [facility] A[facility] Advance Directives: All historical and current Section Date Range: From patient's date of to the date document was created. This section includes ALL of a patient's completed or amended [place] Advance and Rescinded Directives. The entries below indicate that a directive exists for the patient, but an actual copy is not included with this document. The data comes from all [place] facilities. Date Advance Directives Provider Source Feb 04, 2019 ADVANCE DIRECTIVE CESAR LUA [facility] Encounter Notes: All associated encounter notes This section contains the clinical notes associated to the Encounter. Date/Time Encounter Note(s) Provider Source Sep 06, 2023 12:32 PM PHYSICIAN NOTE: LOCAL TITLE: MD NOTE STANDARD TITLE: PHYSICIAN NOTE DATE OF NOTE: SEP 06, 2023@12:32 ENTRY DATE: SEP 06, 2023@12:32:14 AUTHOR: DEISY VELASCO COSIGNER: URGENCY: STATUS: COMPLETED NOTE Has ADDENDA Endocrine nurse, please contact pt to schedule Ozempic training and telephone contact to assess for titration. Thank you. /eusebio VELASCO MD STAFF PHYSICIAN Signed: 09/06/2023 12:34 Receipt Acknowledged By: 09/09/2023 08:50 /skinny/ WILLI PHILLIP RN 10/21/2023 ADDENDUM STATUS: COMPLETED Eye exam rec'd. No 06/04/2023 /eusebio VELASCO MD STAFF PHYSICIAN Signed: 10/21/2023 12:31 DEISY VELASCO [facility]
--- OUTSIDE RECORDS SUMMARY | 2024-05-29 10:29 | XMS_ITS | Encounter Summary ---
Author Name [facility] [place] [facility] [place] [facility] [place] Address [address] [place] [address] Care Team Providers Care Credit And Collections Analyst Name Role Phone LUIS AGGARWAL Primary Care Provider [facility] Insurance Providers: All historical and [...] STAND YON SELF May 29, [phone] [id number] Abdullahi SEVERINO PATIENT MEDICARE (WNR) MEDICARE (M) PART B Jul 18, 2012 PART B [id number] Abdullahi SEVERINO PATIENT MEDICARE (WNR) MEDICARE (M) PART B Jul 18, 2012 PART B [id number] Abdullahi SEVERINO PATIENT MEDICARE (WNR) MEDICARE (M) PART B Jul 18, 2012 PART B [id number] Abdullahi SEVERINO PATIENT MEDICARE (WNR) MEDICARE (M) PART A Dec 19, 2011 PART A [id number] Abdullahi SEVERINO PATIENT MEDICARE (WNR) MEDICARE (M) PART A Dec 19, 2011 PART A [id number] Abdullahi SEVERINO PATIENT MEDICARE (WNR) MEDICARE (M) PART A Dec 19, 2011 PART A [id number] Abdullahi SEVERINO PATIENT Selected Encounter This section includes the information on record at [place] for the Encounter. Date/Time Encounter Type Encounter Description Reason Provider Source September 18, 2023 10:23 AM PRO PHONE CALL 11-20 MIN TELEPHONE/MEDICIN E ICD-10-CM I10 Essential (primary) hypertension SUAD WALLS E Encounter Template Text not used by [place] Assessments - Encounter Diagnoses This section includes the primary and secondary diagnoses documented for the Encounter. Date/Time Primary/Secondary Diagnosis Diagnosis Name Provider Source September 18, 2023 10:23 AM PRIMARY Essential (primary) hypertension SUAD WALLS [place] [facility] [place] [facility] Plan of Treatment: Future Appointments (+ 6 months) and Future Tests (+/- 45 days) The Plan of Treatment section includes future care activities for the patient [facility] [place] [facility] This section includes future appointments [...] - MEDICINE [place] [facility] [place] [facility] October 04, 2023 11:00 AM AMBULATORY - MEDICINE [place] [facility] [place] [facility] Nov 20, 2023 10:00 AM AMBULATORY - MEDICINE [facility] Dec 05, 2023 10:30 AM AMBULATORY - MEDICINE [place] [facility] [place] [facility] Dec 25, 2023 01:00 PM AMBULATORY - MEDICINE [facility] [place] Dec 26, 2023 10:45 AM AMBULATORY - NONE [place] [facility] [place] [facility] Dec 31, 2023 08:00 AM AMBULATORY - MEDICINE [place] [facility] [place] [facility] Jan 17, 2024 08:00 AM AMBULATORY - MEDICINE [place] [facility] [place] [facility] Feb 17, 2024 11:00 AM AMBULATORY - MEDICINE [place] [facility] [place] [facility] Mar 05, 2024 01:30 PM AMBULATORY - MEDICINE [place] [facility] [place] [facility] Social History: Smoking Status (Most current) and [...] took place. Date/Time Current Smoking Status Comment [facility] Apr 05, 2023 11:30 AM VA-TOBACCO FORMER USER [place] [facility] [place] [facility] Tobacco Use History This section includes a history of the smoking, or tobacco-related health factors, that were collected on or before the date of the Encounter. The data comes from the [place] facility where the Encounter took place. Date/Time Smoking Status/Tobac co Use Comment Facility Apr 05, 2023 11:30 AM VA-TOBACCO QUIT 15 YRS OR MORE [facility] [place] [facility] Dec 28, 2021 09:30 AM VA-TOBACCO FORMER USER [facility] [place] [facility] Dec 28, 2021 09:30 AM VA-TOBACCO QUIT 15 YRS OR MORE [facility] [place] [facility] Dec 02, 2020 09:00 AM VA-TOBACCO FORMER USER [facility] [place] [facility] Dec 02, 2020 09:00 AM VA-TOBACCO QUIT 15 YRS OR MORE [facility] [place] [facility] Aug 18, 2019 03:19 PM VA-TOBACCO FORMER USER [facility] [place] [facility] Aug 18, 2019 03:19 PM VA-TOBACCO QUIT 15 YRS OR MORE [facility] [place] [facility] September 23, 2018 09:58 AM VA-TOBACCO FORMER USER [facility] [place] [facility] September 23, 2018 09:58 AM VA-TOBACCO QUIT 15 YRS OR MORE [facility] [place] [facility] September 30, 2017 09:20 AM QUIT TOBACCO USE > 7 YEARS AGO [facility] Aug 20, 2016 09:17 AM QUIT TOBACCO USE > 7 YEARS AGO [facility] Jun 27, 2016 09:45 AM CURRENT SMOKER Quit 25 years ago [facility] Apr 18, 2015 09:06 AM QUIT TOBACCO USE > 7 YEARS AGO quit [facility] 1991 [facility] Mar 21, 2005 10:12 AM HISTORY OF SMOKING [facility] Mar 21, 2005 10:12 AM QUIT TOBACCO USE > 7 YEARS AGO [facility] Advance Directives: All historical and [...] Feb 04, 2019 ADVANCE DIRECTIVE CESAR LUA [facility] Encounter Notes: All associated encounter notes This section contains the clinical notes associated to the Encounter. Date/Time Encounter Note(s) Provider Source September 18, 2023 10:23 AM CARE COORDINATION HOME TELEHEALTH FOLLOW-UP NOTE: LOCAL TITLE: HT INTERVENTION NOTE STANDARD TITLE: CARE COORDINATION HOME TELEHEALTH FOLLOW-UP NOTE DATE OF NOTE: SEPTEMBER 18, 2023@10:23 ENTRY DATE: SEPTEMBER 18, 2023@10:24:28 AUTHOR: CORRIE WALLS COSIGNER: URGENCY: STATUS: COMPLETED is actively enrolled in the Home Telehealth program. Review of data shows the following out of range responses: CARL SEVERINO (-[id number]) Vital Sign for: 08/20/2023 - 09/18/2023 (All times are EST; All weights are lbs.) Primary DMP: [facility]HA-Wt. Mgmt. Comorbid(s): DM/HTN Summary Weight Sys BP Krishnamurthy BP HR Glu Pain High 246.0 178 101 77 211 3 Low 237.0 128 53 45 79 3 Average 242.8 152 74 58 137 3.0 Date Time Wt. Time Sys Krishnamurthy HR Time Glu Time Pain 09/18/2023 08:50 242.0 08:49 154/73 58 08:48 80 09/17/2023 05:55 244.5 05:54 146/74 52 05:45 90 09/16/2023 08:20 242.0 08:18 160/79 65 08:17 173 09/15/2023 08:00 237.0 07:57 160/81 66 07:56 170 09/14/2023 08:01 244.5 08:00 160/101 55 07:56 150 09/13/2023 12:29 243.5 12:26 178/85 67 12:25 150 09/12/2023 14:29 246.0 - - - 09/12/2023 - 12:16 158/84 61 12:15 160 09/11/2023 - 13:03 128/64 55 12:02 180 09/10/2023 - 15:36 136/73 68 15:00 211 09/09/2023 - 20:19 157/76 68 20:18 130 09/08/2023 - 17:21 168/77 59 17:12 202 09/06/2023 - 09:24 149/70 57 09:14 165 09/05/2023 - 08:36 149/65 49 08:24 90 09/04/2023 - 20:59 161/82 68 - 09/04/2023 - - 77 20:47 146 09/02/2023 - 13:21 140/65 48 13:20 79 09/01/2023 - 13:31 146/69 62 13:17 139 08/31/2023 - 04:12 132/65 46 04:00 82 08/30/2023 - 12:17 174/77 53 12:10 120 08/29/2023 - 12:14 154/53 67 12:00 132 08/28/2023 - 08:31 156/75 51 08:20 175 08/27/2023 - 11:18 136/64 45 10:16 115 11:16 3 08/26/2023 - 08:31 143/85 68 08:15 115 08/25/2023 - 17:06 151/73 60 16:45 90 08/25/2023 11:49 148/76 53 11:00 115 08/23/2023 - 08:12 151/65 51 08:00 159 08/22/2023 - 20:02 168/74 56 - 08/22/2023 - 17:11 165/73 56 17:02 85 08/21/2023 - 07:42 148/71 51 07:24 170 08/20/2023 - 10:10 144/66 47 10:00 167 Source: [employer]; [employer] Called Ruth ( identified by full name and date of ) to review data and assess for any symptoms, changes, questions or concerns. Assessment: Increased BP denies any headaches, dizziness, lightheadedness, blurred/changed vision, flushing of face, chest pain, shortness of breath, palpitations, racing of heart, unusual fatigue or weakness. Ruth reports going to a Hockey game in July and falling due to not seeing a crack in the cement. He states he hit his right should and arm. Reports it still feels sore when he puts his BP one, so some of the higher BP's might be due to a little pain. He was told to put his cuff on prior to answering any questions on the HT machine. reports taking all meds with no missed doses. He states he usually takes his BP meds around 6am. Ruth states he is ready for his knee surgery October 08. Intervention(s)/Plan: Reviewed low salt diet, reading labels, decreasing processed foods Reviewed when to seek medical attention, increased SOB, dizziness, severe headache that doesn't go away, chest pains, verbalized understanding Refilled Atorvastatin per request. needs Valsartan and Spironolactone renewed. TYPE OF ENCOUNTER: Telephone Length of call: 11-20 minutes /skinny/ CORRIE WALLS, MSN, RN [facility]-HOME TELEHEALTH LEAD PILOT Signed: 09/18/2023 10:39 Receipt Acknowledged By: 09/18/2023 14:20 /es/ Luis Aggarwal DNP, MOLDER-BC, CNL Primary Care Nurse Practitioner CORIRE WALLS [facility]
--- OUTSIDE RECORDS SUMMARY | 2024-05-29 10:29 | XMS_ITS | Encounter Summary ---
Author Name [facility] [place] Address [address] [place] [id number] Care Team Providers Care Senior Director Insight Name Role Phone STACEY HORTON Primary Care Provider Unavaila [facility] Insurance Providers: All historical and current [...] STAND YON SELF May 29, [phone] [id number] [phone] Abdullahi SEVERINO PATIENT MEDICARE (WNR) MEDICARE (M) PART B Jul 18, 2012 PART B [id number] [phone] Abdullahi SEVERINO PATIENT MEDICARE (WNR) MEDICARE (M) PART B Jul 18, 2012 PART B [id number] Abdullahi SEVERINO PATIENT MEDICARE (WNR) MEDICARE (M) PART B Jul 18, 2012 PART B [id number] Abdullahi SEVERINO PATIENT MEDICARE (WNR) MEDICARE (M) PART A Dec 19, 2011 PART A [id number] [phone] Abdullahi SEVERINO PATIENT MEDICARE (WNR) MEDICARE (M) PART A Dec 19, 2011 PART A [id number] Abdullahi SEVERINO PATIENT MEDICARE (WNR) MEDICARE (M) PART A Dec 19, 2011 PART A [id number] Abdullahi SEVERINO PATIENT Selected Encounter This section includes the information on record at [place] for the Encounter. Date/Time Encounter Type Encounter Description Reason Provider Source September 23, 2023 11:30 AM OFF/OP EST SEPTEMBER X REQ PHY/QHP GENERAL INTERNAL MEDICINE ICD-10-CM E11.9 Type 2 diabetes mellitus without complications WILLI PHILLIP [facility] Encounter Template Text not used by CT Assessments - Encounter Diagnoses This section includes the primary and secondary diagnoses documented for the Encounter. Date/Time Primary/Secondary Diagnosis Diagnosis Name Provider Source September 23, 2023 12:13 PM PRIMARY Type 2 diabetes mellitus without complications WILLI PHILLIP [facility] Plan of Treatment: Future Appointments (+ 6 months) and Future Tests (+/- 45 days) The Plan of Treatment section includes future care activities for the [facility] This section includes future appointments and future orders which are active, pending or scheduled. Future Appointments This section includes appointments that were scheduled to occur 6 months from the date of the Encounter, up to a maximum of 20 appointments. The data comes from all [place] treatment facilities. Appointment Date/Time Appointment Type Appointme nt Facility Name October 04, 2023 11:00 AM AMBULATORY - MEDICINE [place] C [place] [facility] Nov 20, 2023 10:00 AM AMBULATORY - MEDICINE [facility] Dec 05, 2023 10:30 AM AMBULATORY - MEDICINE [place] C [place]L [place] [facility] Dec 25, 2023 01:00 PM AMBULATORY - MEDICINE [facility] Dec 26, 2023 10:45 AM AMBULATORY - NONE CT [place]L [place] [facility] Dec 31, 2023 08:00 AM AMBULATORY - MEDICINE CT C [place] [facility] Jan 17, 2024 08:00 AM AMBULATORY - MEDICINE CT C [place] [place] [facility] Feb 17, 2024 11:00 AM AMBULATORY - MEDICINE CT C [place] [place] [facility] Mar 05, 2024 01:30 PM AMBULATORY - MEDICINE CT C [place] [place] [facility] Mar 25, 2024 01:00 PM AMBULATORY - MEDICINE [facility] Social History: Smoking Status (Most current) [...] 05, 2023 11:30 AM VA-TOBACCO FORMER USER CT CNTRL [place] [facility] Tobacco Use History This section includes a history of the smoking, or tobacco-related health factors, that were collected on or before the date of the Encounter. The data comes from the [place] facility where the Encounter took place. Date/Time Smoking Status/Tobac co Use Comment Facility Apr 05, 2023 11:30 AM VA-TOBACCO QUIT 15 YRS OR MORE [facility] [place] [facility] Dec 28, 2021 09:30 AM VA-TOBACCO FORMER USER [facility] [place] [facility] Dec 28, 2021 09:30 AM VA-TOBACCO QUIT 15 YRS OR MORE [facility] [place] [facility] Dec 02, 2020 09:00 AM VA-TOBACCO FORMER USER [place] [facility] [place] [facility] Dec 02, 2020 09:00 AM VA-TOBACCO QUIT 15 YRS OR MORE [facility] [place] [facility] Aug 18, 2019 03:19 PM VA-TOBACCO FORMER USER [facility] [place] [facility] Aug 18, 2019 03:19 PM VA-TOBACCO QUIT 15 YRS OR MORE [facility] [place] [facility] September 23, 2018 09:58 AM VA-TOBACCO FORMER USER [facility] [place] [facility] September 23, 2018 09:58 AM VA-TOBACCO QUIT 15 YRS OR MORE [facility] [place] [facility] September 30, 2017 09:20 AM QUIT TOBACCO USE > 7 YEARS AGO [facility] [place] [facility] Aug 20, 2016 09:17 AM QUIT TOBACCO USE > 7 YEARS AGO [facility] Jun 27, 2016 09:45 AM CURRENT SMOKER Quit 25 years [facility] Apr 18, 2015 09:06 AM QUIT TOBACCO USE > 7 YEARS AGO [facility] Mar 21, 2005 10:12 AM HISTORY OF SMOKING [facility] Mar 21, 2005 10:12 AM QUIT TOBACCO USE > 7 YEARS AGO [facility] Advance Directives: All historical and [...] Feb 04, 2019 ADVANCE DIRECTIVE CESAR LUA [facility] Encounter Notes: All associated encounter notes This section contains the clinical notes associated to the Encounter. Date/Time Encounter Note(s) Provider Source September 23, 2023 12:02 PM NURSING OUTPATIENT NOTE: LOCAL TITLE: NURSING/SPECIALTY CLINIC NOTE STANDARD TITLE: NURSING OUTPATIENT NOTE DATE OF NOTE: SEPTEMBER 23, 2023@12:02 ENTRY DATE: SEPTEMBER 23, 2023@12:02:32 AUTHOR: WILLI PHILLIP COSIGNER: URGENCY: STATUS: COMPLETED OZEMPIC EDUCATION VISIT Ve Vet here for Ozempic training Demographics: Patient Name: CARL SEVERINO Age: 78 Sex: MALE Race: WHITE MARITAL STATUS - NEVER Introduction: identified with 2 identifiers: [X] Full Name [X] Date of [ ] Address [ ] CT ID Card PATIENT PHONE - PHONE NUMBER [CELLULAR] - Is patient phone number correct, if not, enter below: 's phone number: CARL SEVERINO [address], [place], [address] MOST RECENT LABS: HEMOGLOBIN A1C TREND Collection DT Spec HGBA1c 08/16/2023 07:56 BLOOD 7.3 H 04/25/2023 08:45 BLOOD 6.7 H 01/22/2023 09:03 BLOOD 8.0 H 10/18/2022 10:16 BLOOD 7.7 H 06/22/2022 08:29 BLOOD 8.4 H CHEM 7 TREND WEIGHT: 246 lb [111.58 kg] (09/04/2023 10:04) HEIGHT: 71 in [180.3 cm] (04/05/2023 11:09) BMI: 34.4 Vet here for Ozempic training. [place] nurse reviewed with Vet, the indications, side effects and procedure of injecting Ozempic. [place] nurse gave a demonstration with a return demonstration from Vet. Vet gave himself the injection without any issue. Vet understands to call Endocrine office if side effects occur andlinger. If severe side effects occur to seek medical attention. [place] nurse gave instructions to Vet on procedure and storage of medication. Vet understood and is comfortable with giving himself the injection once a week. /skinny/ WILLI PHILLIP RN Signed: 09/23/2023 12:[address] [facility]
--- OUTSIDE RECORDS SUMMARY | 2024-05-29 10:29 | XMS_ITS | Encounter Summary ---
Author Name [facility] [place] Address [address] [place] [address] Care Team Providers Care Necktie Turner Name Role Phone STACEY HORTON Primary Care [...] STAND YON SELF May 29, [phone] [id number] Abdullahi SEVERINO PATIENT MEDICARE (WNR) MEDICARE (M) PART B Jul 18, 2012 PART B [id number] [phone] Abdullahi SEVERINO PATIENT MEDICARE (WNR) MEDICARE (M) PART B Jul 18, 2012 PART B [id number] Abdullahi SEVERINO PATIENT MEDICARE (WNR) MEDICARE (M) PART B Jul 18, 2012 PART B [id number] [phone] Abdullahi SEVERINO PATIENT MEDICARE (WNR) MEDICARE (M) PART A Dec 19, 2011 PART A [id number] Abdullahi SEVERINO PATIENT MEDICARE (WNR) MEDICARE (M) PART A Dec 19, 2011 PART A [id number] Abdullahi SEVERINO PATIENT MEDICARE (WNR) MEDICARE (M) PART A Dec 19, 2011 PART A [id number] Abdullahi SEVERINO PATIENT Selected Encounter This section includes the [place] at [place] for the Encounter. Date/Time Encounter Type Encounter Description Reason Pro vider Source Nov 05, 2023 12:00 AM Outpatient Encounter EVENT (HISTORICAL) [...] 2023 10:00 AM AMBULATORY - MEDICINE [facility] Dec 05, 2023 10:30 AM AMBULATORY - [place]ICINE [place] [facility] Dec 25, 2023 01:00 PM AMBULATORY - MEDICINE [facility] Dec 26, 2023 10:45 AM AMBULATORY - NONE [place] [facility] Dec 31, 2023 08:00 AM AMBULATORY - MEDICINE [place] [facility] Jan 17, 2024 08:00 AM AMBULATORY - MEDICINE [place] [facility] Feb 17, 2024 11:00 AM AMBULATORY - MEDICINE [place] C [place] [facility] Mar 05, 2024 01:30 PM AMBULATORY - MEDICINE [place] C [place] [facility] Mar 25, 2024 01:00 PM [facility] Apr 06, 2024 10:00 AM AMBULATORY - MEDICINE [place] [facility] Apr 23, 2024 10:45 AM AMBULATORY - NONE [place] [facility] Apr 29, 2024 10:00 AM AMBULATORY - MEDICINE [facility] Lab Results: +/- 30 days of the encounter This section includes the Chemistry and Hematology Lab Results on record with [place] for the patient. Radiology Reports and Pathology Reports are provided separately, in subsequent sections. Lab Results This section contains the Chemistry/Hematology Results that were resulted 30 days before or 30 daysafter the date of the Encounter. Date/Time Source Result Type Result - Unit Interpretation Reference Range Comment Dec 05, 2023 10:58 AM [facility] HEMOGLOBIN A1C PANEL Specimen Type: BLOOD Comment: Values obtained from A1C measurements can vary. For atypical A1C assays, a reported value of 7.0 could actually be between 6.72 and 7.28 if measured by a reference method. A reported value of 9.0 could actually be between 8.73 and 9.27. Ref: http://www.ngs p.org/CAPdata. asp Ordering Provider: DEISY VELASCO Report Released Date/Time: Sep 04, 2023 12:58 PM Reporting Lab: [facility] [address] [id number] Performing Lab: [address] [id number] HEMOGLOBIN A1C 6.0 H 4.0-5.6 Dec 05, 2023 10:58 AM [facility] BASIC METABOLIC PANEL (non-fasting) Specimen Type: SERUM No comment entered. Ordering Provider: DEISY VELASCO Report Released Date/Time: Sep 04, 2023 12:58 PM Reporting Lab: [facility] [address] [address] Performing Lab: [address] [address] UREA NITROGEN 19 mg/dL 7-25 GLUCOSE 147 mg/dL H 65-100 SODIUM 136 mmol/L 135-145 POTASSIUM 4.6 mmol/L 3.5-5.0 CHLORIDE 104 mmol/L 100-110 CO2 23 meq/L 20-30 CREATININE, Serum 0.92 mg/dL 0.50-1.40 eGFR(CKD-EPI 2020) 86 mL/min >60 Social History: Smoking Status (Most [...] took place. Date/Time Current Smoking Status Comment [facility] Apr 05, 2023 11:30 AM VA-TOBACCO FORMER USER [place] [facility] Tobacco Use History This section includes a history of the smoking, or tobacco-related health factors, that were collected on or before the date of the Encounter. The data comes from the [place] facility where the Encounter took place. Date/Time Smoking Status/Tobac co Use Comment Facility Apr 05, 2023 11:30 AM VA-TOBACCO QUIT 15 YRS OR MORE [place] [facility] Dec 28, 2021 09:30 AM VA-TOBACCO FORMER USER [place] [facility] Dec 28, 2021 09:30 AM VA-TOBACCO QUIT 15 YRS OR MORE [place] [facility] Dec 02, 2020 09:00 AM VA-TOBACCO FORMER USER [place] [facility] Dec 02, 2020 09:00 AM VA-TOBACCO QUIT 15 YRS OR MORE [place] [facility] Aug 18, 2019 03:19 PM VA-TOBACCO FORMER USER [place] [facility] Aug 18, 2019 03:19 PM VA-TOBACCO QUIT 15 YRS OR MORE [place] [facility] [place] [facility] September 23, 2018 09:58 AM VA-TOBACCO FORMER USER [place] [facility] [facility] September 23, 2018 09:58 AM VA-TOBACCO QUIT 15 YRS OR MORE [place] [facility] September 30, 2017 09:20 AM QUIT TOBACCO USE > 7 YEARS AGO [place] [facility] [facility] Aug 20, 2016 09:17 AM QUIT TOBACCO USE > 7 YEARS AGO quit 1992 [place] [facility] Jun 27, 2016 09:45 AM CURRENT SMOKER Quit 25 years ago [place] [facility] [place] [facility] Apr 18, 2015 09:06 AM QUIT TOBACCO USE > 7 YEARS AGO quit in 1991 [facility] Mar 21, 2005 10:12 AM HISTORY OF SMOKING [facility] Mar 21, 2005 10:12 AM QUIT TOBACCO USE > 7 YEARS AGO [facility] Advance Directives: All historical and current [...] Provider Source Feb 04, 2019 ADVANCE DIRECTIVE STONEYBENYI [facility] Encounter Notes: All associated encounter notes This section contains the clinical notes associated to the Encounter. Date/Time Encounter Note(s) Provider Source Nov 05, 2023 12:00 AM NONVA NOTE: LOCAL TITLE: NON-VA OUTPATIENT NOTES STANDARD TITLE: NONVA NOTE DATE OF NOTE: NOV 05, 2023 ENTRY DATE: NOV 20, 2023@08:15:27 AUTHOR: АНДРЕЙ KIDD EXP COSIGNER: URGENCY: STATUS: COMPLETED VistA Imaging - Scanned Document SCANNED DOCUMENT SIGNATURE NOT REQUIRED Electronically Filed: 11/20/2023 by: АНДРЕЙ KIDD TEMPERATURE REGULATOR АНДРЕЙ KIDD [facility]
--- OUTSIDE RECORDS SUMMARY | 2024-05-29 10:29 | XMS_ITS | Encounter Summary ---
Author Name [place] Address [address] [place] [address] Care Team Providers Care Stiff Neck Loader Name Role Phone STACEY HORTON Primary Care Provider [facility] Insurance Providers: All historical and current Section [...] STAND YON SELF May 29, [phone] [id number] [phone] Abdullahi SEVERINO PATIENT MEDICARE (WNR) MEDICARE (M) PART B Jul 18, 2012 PART B [id number] Abdullahi SEVERINO PATIENT MEDICARE (WNR) MEDICARE (M) PART B Jul 18, 2012 PART B [id number] [phone] Abdullahi SEVERINO PATIENT MEDICARE (WNR) MEDICARE (M) PART B Jul 18, 2012 PART B [id number] Abdullahi SEVERINO PATIENT MEDICARE (WNR) MEDICARE (M) PART A Dec 19, 2011 PART A [id number] Abdullahi SEVERINO PATIENT MEDICARE (WNR) MEDICARE (M) PART A Dec 19, 2011 PART A [id number] [phone] Abdullahi SEVERINO PATIENT MEDICARE (WNR) MEDICARE (M) PART A Dec 19, 2011 PART A [id number] [phone] Abdullahi SEVERINO PATIENT Selected Encounter This section includes the information on record at [place] for the Encounter. Date/Time Encounter Type Encounter Description Reason Provider Source September 24, 2023 07:38 AM COLLJ & INTERPJ DATA EA 30 D SLEEP MEDICINE ICD-10-CM G47.33 Obstructive sleep apnea (adult) (pediatric) LA JUNG Afshin Encounter Template Text not used by [place] Assessments - Encounter Diagnoses This section includes the primary and secondary diagnoses documented for the Encounter. Date/Time Primary/Secondary Diagnosis Diagnosis Name Provider Source September 24, 2023 07:39 AM PRIMARY Obstructive sleep apnea (adult) (pediatric) LA JUNG [facility] Plan of Treatment: Future Appointments (+ 6 months) and Future Tests (+/- 45 days) The Plan of Treatment section includes future care activities for the patient from all [place] treatmentfacilities. This section includes future appointments and future orders which are active, pending or scheduled. Future Appointments This section includes appointments that were scheduled to occur 6 months from the date of the Encounter, up to a maximum of 20 appointments. The data comes from all [place] treatment facilities. Appointment Date/Time Appointment Type Appointme nt Facility Name October 04, 2023 11:00 AM AMBULATORY - [place]ICINE [place] [facility] Nov 20, 2023 10:00 AM AMBULATORY - MEDICINE [facility] Dec 05, 2023 10:30 AM AMBULATORY - MEDICINE [place] [facility] Dec 25, 2023 01:00 PM AMBULATORY - MEDICINE [place] Dec 26, 2023 10:45 AM AMBULATORY - NONE [place] [facility] Dec 31, 2023 08:00 AM AMBULATORY - MEDICINE [place] [facility] Jan 17, 2024 08:00 AM AMBULATORY - MEDICINE [place] [facility] Feb 17, 2024 11:00 AM AMBULATORY - MEDICINE [place] C [place] [facility] Mar 05, 2024 01:30 PM AMBULATORY - MEDICINE [place] [facility] Mar 25, 2024 01:00 PM AMBULATORY - MEDICINE [facility] Social History: Smoking Status (Most current) and Tobacco Use (All prior to encounter date) This section includes the most current, and the historical, smoking and tobacco- related health factors from the [place] facility where the Encounter took place. Current Smoking Status This section includes the most current smoking, or tobacco-related health factor, from the [place] facility where the Encounter took place. Date/Time Current Smoking Status Comment [facility] Apr 05, 2023 11:30 AM VA-TOBACCO FORMER USER [place] [facility] Tobacco Use History This section includes a history of the smoking, or tobacco-related health factors, that were collected on or before the date of the Encounter. The data comes from the [place] facility where the Encounter took place. Date/Time Smoking Status/Tobac co Use Comment Facility Apr 05, 2023 11:30 AM VA-TOBACCO QUIT 15 YRS OR MORE [place] [facility] [place] [facility] Dec 28, 2021 09:30 AM VA-TOBACCO FORMER USER [place] [facility] [place] [facility] Dec 28, 2021 09:30 AM VA-TOBACCO QUIT 15 YRS OR MORE [place] [facility] [place] [facility] Dec 02, 2020 09:00 AM VA-TOBACCO FORMER USER [place] [facility] [place] [facility] Dec 02, 2020 09:00 AM VA-TOBACCO QUIT 15 YRS OR MORE [place] [facility] [place] [facility] Aug 18, 2019 03:19 PM VA-TOBACCO FORMER USER [place] [facility] [place] [facility] Aug 18, 2019 03:19 PM VA-TOBACCO QUIT 15 YRS OR MORE [place] [facility] [place] [facility] September 23, 2018 09:58 AM VA-TOBACCO FORMER USER [place] [facility] [place] [facility] September 23, 2018 09:58 AM VA-TOBACCO QUIT 15 YRS OR MORE [place] [facility] [place] [facility] September 30, 2017 09:20 AM QUIT TOBACCO USE > 7 YEARS AGO [facility] Aug 20, 2016 09:17 AM QUIT TOBACCO USE > 7 YEARS AGO [facility] Jun 27, 2016 09:45 AM CURRENT SMOKER Quit [facility] Apr 18, 2015 09:06 AM QUIT TOBACCO USE > 7 YEARS AGO quit in 1991 [facility] Mar 21, 2005 10:12 AM HISTORY OF SMOKING [facility] Mar 21, 2005 10:12 AM QUIT TOBACCO USE > 7 YEARS AGO [facility] Advance Directives: All historical and current Section Date Range: From patient's date of to the date document was created. This section includes ALL of a patient's completed or amended [place] Advance and Rescinded Directives. The entries below indicate that a directive exists for the patient, but an actual copy is not included with this document. The data comes from all [place] facilities. Date Advance Directives Provider Source Feb 04, 2019 ADVANCE DIRECTIVE CESAR LUA [facility] Encounter Notes: All associated encounter notes This section contains the clinical notes associated to the Encounter. Date/Time Encounter Note(s) Provider Source September 24, 2023 07:38 AM RESPIRATORY THERAP Y NOTE: LOCAL TITLE: RESPIRATORY THERAPY NOTE(BLANK) STANDARD TITLE: RESPIRATORY THERAPY NOTE DATE OF NOTE: SEPTEMBER 24, 2023@07:38 ENTRY DATE: SEPTEMBER 24, 2023@07:38:36 AUTHOR: LA JUNG EXP COSIGNER: URGENCY: STATUS: COMPLETED diagnosed with sleep apnea had Airview data download 2 weeks after issue of new power cord. [employer]View Compliance Report Usage 09/10/2023 - 09/23/2023 Usage days 13/14 days (93%) >= 4 hours 10 days (71%) < 4 hours 3 days (21%) Usage hours 67 hours 14 minutes Average usage (total days) 4 hours 48 minutes Average usage (days used) 5 hours 10 minutes Median usage (days used) 5 hours 20 minutes Total used hours (value since last reset - 09/23/2023) 227 hours AirSense 11 AutoSet Serial number [id number] Mode CPAP Set pressure 15 cmH2O EPR Fulltime EPR level 2 Therapy Leaks - L/min Median: 51.6 95th percentile: 87.1 Maximum: 100.0 Events per hour AI: 4.0 HI: 2.0 AHI: 6.0 Apnea Index Central: 0.1 Obstructive: 0.0 Unknown: 3.9 RERA Index 0.8 [employer] respiration (average duration per night) 6 minutes (2%) /skinny/ LA JUNG RESPIRATORY THERAPIST Signed: 09/24/2023 07:39 [place] [address]
--- OUTSIDE RECORDS SUMMARY | 2024-05-29 10:29 | XMS_ITS | Encounter Summary ---
Author Name [facility] [place] Address [address] [place] [address] Care Team Providers Care [place] Name Role Phone STACEY HORTON Primary Care [...] STAND YON SELF May 29, [phone] [id number] Abdullahi SEVERINO PATIENT MEDICARE (WNR) MEDICARE (M) PART B Jul 18, 2012 PART B [id number] [phone] Abdullahi SEVERINO PATIENT MEDICARE (WNR) MEDICARE (M) PART B Jul 18, 2012 PART B [id number] Abdullahi SEVERINO PATIENT MEDICARE (WNR) MEDICARE (M) PART B Jul 18, 2012 PART B [id number] Abdullahi SEVERINO PATIENT MEDICARE (WNR) MEDICARE (M) PART A Dec 19, 2011 PART A [id number] [phone] Abdullahi SEVERINO PATIENT MEDICARE (WNR) MEDICARE (M) PART A Dec 19, 2011 PART A [id number] Abdullahi SEVERINO PATIENT MEDICARE (WNR) MEDICARE (M) PART A Dec 19, 2011 PART A [id number] Abdullahi SEVERINO PATIENT Selected Encounter This section includes the [place] at [place] for the Encounter. Date/Time Encounter Type Encounter Description Reason Provider Source Sep 13, 2023 10:45 AM Outpatient Encounter HT NON-VIDEO MONITORING ICD-10-CM E11.9 Type 2 diabetes mellitus without complications [facility] Encounter Template Text not used by [place] Assessments - Encounter Diagnoses This section includes the primary and secondary diagnoses documented for the Encounter. Date/Time Primary/Secondary Diagnosis Diagnosis Name Provider Source Sep 13, 2023 11:24 AM PRIMARY Type 2 diabetes mellitus without complications RISAKRISTIE BRIDGES [facility] [place] [facility] Sep 13, 2023 11:24 AM SECONDARY Essential (primary) hypertension RISA,BRE [facility] [place] [facility] Plan of Treatment: Future Appointments [...] - MEDICINE [place] [facility] October 04, 2023 11:00 AM AMBULATORY - [place]ICINE [place] [facility] Nov 20, 2023 10:00 AM AMBULATORY - MEDICINE [facility] Dec 05, 2023 10:30 AM AMBULATORY - MEDICINE [place] [facility] Dec 25, 2023 01:00 PM AMBULATORY - MEDICINE [facility] Dec 26, 2023 10:45 AM AMBULATORY - NONE [place] [facility] Dec 31, 2023 08:00 AM AMBULATORY - MEDICINE [place] [facility] Jan 17, 2024 08:00 AM AMBULATORY - MEDICINE [place] [facility] Feb 17, 2024 11:00 AM AMBULATORY - MEDICINE [place] [facility] Mar 05, 2024 01:30 PM AMBULATORY - MEDICINE [facility] Lab Results: +/- 30 days of the [...] Range Comment Aug 16, 2023 07:56 AM [facility] HEMOGLOBIN A1C PANEL Specimen Type: BLOOD Comment: [...] May 29, 2023 12:04 PM Reporting Lab: [facility] [address] [id number] Performing Lab: [facility] [address] [facility] [phone] HEMOGLOBIN A1C 7.3 H 4.0-5.6 Aug 16, 2023 07:56 AM [facility] LIPID PANEL FASTING Specimen Type: SERUM No comment entered. Ordering Provider: DEISY VELASCO Report Released Date/Time: May 29, 2023 12:04 PM Reporting Lab: [facility] [address] [facility] [address] Performing Lab: [address] [address] CHOLESTEROL 122 mg/dL TRIGLYCERIDE 399 mg/dL H 0-150 LDL calculated Reflex to dLD L mg/dL 0-129 CHOL/HDL 3.9 HDL CHOLESTEROL 31 mg/dL L 40-60 LDL DIRECT 45 mg/dL Aug 16, 2023 07:56 AM [facility] MICROALBUMIN CREATININE RATIO PANEL Specimen Type: URINE No comment entered. Ordering Provider: DEISY VELASCO Report Released Date/Time: May 29, 2023 12:04 PM Reporting Lab: [facility] [address] [facility] [address] Performing Lab: [facility] [address] [facility] [address] MICROALBUMIN/C REATININE RATIO 111.2 mg/g H 0-29.9 MICROALBUMIN,Q UANTITATIVE 9.3 mg/dL RR UNAVAIL CREATININE URINE 83.60 mg/dL Aug 16, 2023 07:56 AM [facility] BASIC METABOLIC PANEL (fasting) Specimen Type: SERUM No comment entered. Ordering Provider: DEISY VELASCO Report Released Date/Time: May 29, 2023 12:04 PM Reporting Lab: [facility] [address] [facility] [address] Performing Lab: [address] [address] UREA NITROGEN 17 mg/dL 7-25 GLUCOSE 162 [...] 05, 2023 11:30 AM VA-TOBACCO FORMER USER [facility] Tobacco Use History This section includes a history of the smoking, or tobacco-related health factors, that were collected on or before the date of the Encounter. The data comes from the [place] facility where the Encounter took place. Date/Time Smoking Status/Tobac co Use Comment Facility Apr 05, 2023 11:30 AM VA-TOBACCO QUIT 15 YRS OR MORE [place] [facility] Dec 28, 2021 09:30 AM VA-TOBACCO FORMER USER [place] [facility] [place] [facility] Dec 28, 2021 09:30 AM VA-TOBACCO QUIT 15 YRS OR MORE [place] [facility] [place] [facility] Dec 02, 2020 09:00 AM VA-TOBACCO FORMER USER [place] [facility] Dec 02, 2020 09:00 AM VA-TOBACCO QUIT 15 YRS OR MORE [place] [facility] Aug 18, 2019 03:19 PM VA-TOBACCO FORMER USER [place] [facility] Aug 18, 2019 03:19 PM VA-TOBACCO QUIT 15 YRS OR MORE [place] [facility] September 23, 2018 09:58 AM VA-TOBACCO FORMER USER [place] [facility] September 23, 2018 09:58 AM VA-TOBACCO QUIT 15 YRS OR MORE [place] [facility] September 30, 2017 09:20 AM QUIT TOBACCO USE > 7 YEARS AGO [place] [facility] Aug 20, 2016 09:17 AM QUIT TOBACCO USE > 7 YEARS AGO quit 1991 [place] [facility] Jun 27, 2016 09:45 AM CURRENT SMOKER Quit 25 years ago [place] [facility] Apr 18, 2015 09:06 AM QUIT TOBACCO USE > 7 YEARS AGO quit in 1991 [place] [facility] Mar 21, 2005 10:12 AM HISTORY OF SMOKING [place] [facility] Mar 21, 2005 10:12 AM QUIT TOBACCO USE > 7 YEARS AGO [place] [facility] Advance Directives: All historical and [...] Feb 04, 2019 ADVANCE DIRECTIVE CESAR LUA [place] [facility] STRHimanshu [facility] Encounter Notes: All associated encounter notes This section contains the clinical notes associated to the Encounter. Date/Time Encounter Note(s) Provider Source Sep 13, 2023 11:21 AM CARE COORDINATION HOME TELEHEALTH SUMMARIZATION NOTE: LOCAL TITLE: HT MONTHLY MONITOR NOTE STANDARD TITLE: CARE COORDINATION HOME TELEHEALTH SUMMARIZATION DATE OF NOTE: SEP 13, 2023@11:21 ENTRY DATE: SEP 13, 2023@11:22:03 AUTHOR: TOÑO LORD EXP COSIGNER: URGENCY: STATUS: COMPLETED The [place] is enrolled in the Home Telehealth (HT) program and continues to be monitored via HT technology. The data sent by the is reviewed and analyzed by the HT staff, who provide ongoing case management and health education while communicating and collaborating with the health care team as appropriate. This note covers a total of 30 minutes for the month monitored. Month monitored: AUGUST 2023 Dx: DM/HTN /es/ TOÑO LORD RN RPM-Home Telehealth [employer] Signed: 09/13/2023 11:25 TOÑO LORD [place] [facility] [facility]
--- OUTSIDE RECORDS SUMMARY | 2024-05-29 10:29 | XMS_ITS | Encounter Summary ---
Author Name [facility] [place] [facility] [place] Address [address] [place] [address] Care Team Providers Care Dental Appliance Mechanic Name Role Phone STACEY HORTON Primary [facility] Provider [facility] Insurance Providers: All historical and current Section [...] STAND YON SELF May 29, [phone] [id number] Abdullahi SEVERINO PATIENT MEDICARE (WNR) MEDICARE (M) PART B Jul 18, 2012 PART B [id number] Abdullahi SEVERINO PATIENT MEDICARE (WNR) MEDICARE (M) PART B Jul 18, 2012 PART B [id number] Abdullahi SEVERINO PATIENT MEDICARE (WNR) MEDICARE (M) PART B Jul 18, 2012 PART B [id number] [phone] Abdullahi SEVERINO PATIENT MEDICARE (WNR) MEDICARE (M) PART A Dec 19, 2011 PART A [id number] Abdullahi SEVERINO PATIENT MEDICARE (WNR) MEDICARE (M) PART A Dec 19, 2011 PART A [id number] Abdullahi SEVERINO PATIENT MEDICARE (WNR) MEDICARE (M) PART A Dec 19, 2011 PART A [id number] Abdullahi SEVERINO PATIENT Selected Encounter This section includes the information on record at [place] for the Encounter. Date/Time Encounter Type Encounter Description Reason Provider Source October 17, 2023 12:46 PM HC PRO PHONE CALL 11-20 MIN TELEPHONE/MEDICIN E ICD-10-CM E11.9 Type 2 diabetes mellitus without complications [facility] Encounter Template Text not used by [place] Assessments - Encounter Diagnoses This section includes the primary and secondary diagnoses documented for the Encounter. Date/Time Primary/Secondary Diagnosis Diagnosis Name Provider Source October 17, 2023 12:46 PM PRIMARY Type 2 diabetes mellitus without [facility] [place] [place] [facility] October 17, 2023 12:46 PM SECONDARY Essential (primary) [facility] [place] [facility] [place] [facility] October 17, 2023 12:46 PM SECONDARY Obesity, unspecified [facility] [place] [facility] Plan of Treatment: Future Appointments (+ 6 months) and Future Tests (+/- 45 days) The Plan of Treatment section includes future care activities for the patient from all [place] treatmentfacilities. This section includes future appointments and [...] [facility] Dec 05, 2023 10:30 AM AMBULATORY - MEDICINE [place] [facility] Dec 25, 2023 01:00 PM AMBULATORY - MEDICINE [facility] Dec 26, 2023 10:45 AM AMBULATORY - NONE [place] [facility] Dec 31, 2023 08:00 AM AMBULATORY - MEDICINE [place] [facility] Jan 17, 2024 08:00 AM AMBULATORY - MEDICINE [place] [facility] [place] [facility] Feb 17, 2024 11:00 AM AMBULATORY - MEDICINE [place] [facility] [place] [facility] Mar 05, 2024 01:30 PM AMBULATORY - MEDICINE [place] [facility] Mar 25, 2024 01:00 PM AMBULATORY - MEDICINE [place] [place] Apr 06, 2024 10:00 AM AMBULATORY - MEDICINE [place] [facility] Social History: Smoking Status (Most [...] took place. Date/Time Current Smoking Status Comment [facility] Apr 05, 2023 11:30 AM VA-TOBACCO FORMER USER [place] [facility] Tobacco Use History This section includes a history of the smoking, or tobacco-related health factors, that were collected on or before the date of the Encounter. The data comes from the [place] facility where the Encounter took place. Date/Time Smoking Status/Tobac co Use Comment Facility Apr 05, 2023 11:30 AM VA-TOBACCO QUIT 15 YRS OR MORE [place] [facility] [place] [facility] Dec 28, 2021 09:30 AM VA-TOBACCO FORMER USER [place] [facility] [place] [facility] Dec 28, 2021 09:30 AM VA-TOBACCO QUIT 15 YRS OR MORE [place] [facility] [place] [facility] Dec 02, 2020 09:00 AM VA-TOBACCO FORMER USER [place] [facility] [place] [facility] Dec 02, 2020 09:00 AM VA-TOBACCO QUIT 15 YRS OR MORE [place] [facility] [place] [facility] Aug 18, 2019 03:19 PM VA-TOBACCO FORMER USER [place] [facility] [place] [facility] Aug 18, 2019 03:19 PM VA-TOBACCO QUIT 15 YRS OR MORE [place] [facility] [place] [facility] September 23, 2018 09:58 AM VA-TOBACCO FORMER USER [facility] September 23, 2018 09:58 AM VA-TOBACCO QUIT [facility] YRS [facility] September 30, 2017 09:20 AM QUIT TOBACCO USE > 7 YEARS AGO [facility] Aug 20, 2016 09:17 AM QUIT TOBACCO USE > 7 YEARS AGO [facility] Jun 27, 2016 09:45 AM CURRENT SMOKER Quit 25 years [facility] Apr 18, 2015 09:06 AM QUIT TOBACCO USE > 7 YEARS AGO [facility] Mar 21, 2005 10:12 AM [facility] Mar 21, 2005 10:12 AM QUIT TOBACCO USE > 7 YEARS AGO [facility] Advance Directives: All historical and [...] Feb 04, 2019 ADVANCE DIRECTIVE [facility]ESAR [facility] Encounter Notes: All associated encounter notes This section contains the clinical notes associated to the Encounter. Date/Time Encounter Note(s) Provider Source October 17, 2023 12:46 PM CARE COORDINATION HOME TELEHEALTH FOLLOW-UP NOTE: LOCAL TITLE: HT INTERVENTION NOTE STANDARD TITLE: CARE COORDINATION HOME TELEHEALTH FOLLOW-UP NOTE DATE OF NOTE: OCTOBER 17, 2023@12:46 ENTRY DATE: OCTOBER 17, 2023@12:46:28 AUTHOR: TOÑO LORD EXP COSIGNER: URGENCY: STATUS: COMPLETED is actively enrolled in the Home Telehealth program. Review of data shows the following out of range responses: [place] attempted a Health Check after being away for several days for knee replacement surgery. Noted questions were completed but vitals were not transmitted Measurements: CARL SEVERINO (-[id number]) Vital Sign for: 09/18/2023 - 10/17/2023 (All times are EST; All weights are lbs) Primary DMP: [facility]HA-Wt Mgmt Comorbid(s): DM/HTN Summary Weight Sys BP Krishnamurthy BP HR Glu Pain High 251.0 176 88 70 167 Low 237.0 111 58 48 80 Average 244.6 144 71 58 133 Date Time Wt Time Sys Krishnamurthy HR Time Glu Time Pain 10/08/2023 21:02 240.5 21:00 143/76 70 20:59 85 10/07/2023 07:53 237.0 07:52 144/66 48 07:51 164 10/06/2023 17:56 242.5 17:55 132/68 65 16:54 143 10/05/2023 17:16 242.5 17:15 132/62 54 17:13 143 10/04/2023 22:06 247.5 22:05 124/61 63 22:04 139 10/03/2023 19:14 243.0 19:13 125/80 56 19:12 80 10/02/2023 14:06 249.0 14:04 124/64 63 14:03 145 10/01/2023 13:57 251.0 13:56 156/73 61 13:55 143 09/30/2023 15:49 246.0 15:47 162/72 60 15:46 130 09/29/2023 08:26 241.5 08:24 111/58 55 08:23 157 09/28/2023 - 21:33 163/83 62 - 09/28/2023 19:20 242.0 19:18 172/71 58 18:17 110 09/27/2023 16:52 241.5 16:50 163/72 54 16:30 100 09/26/2023 - 13:12 155/77 56 - 09/26/2023 - - 59 12:30 90 09/25/2023 12:19 246.0 12:17 129/68 53 12:16 167 09/24/2023 12:55 246.0 12:53 141/69 59 12:53 133 09/23/2023 07:47 246.5 07:46 122/62 49 07:45 157 09/22/2023 21:08 248.5 21:07 176/77 62 21:06 154 09/21/2023 15:31 247.5 15:30 146/88 51 15:29 167 09/21/2023 - - - 15:20 133 09/20/2023 10:13 247.0 10:11 159/74 59 10:10 156 09/19/2023 10:33 244.5 10:32 145/75 50 10:31 157 09/18/2023 08:50 242.0 08:49 154/73 58 08:48 80 Source: [employer]; [facility] Assessment: Called , identified by full name/. Inquired about VItal signs not received and to offer assistance with completing health check. states I have been away since last week. For Knee replacement surgery done 10/09/23. Since then I have been having a lot of pain and experiencing some difficulty with ambulating with walker to my equipment. Destiney states during PT visit today the provider was not able to get a BP due to his cuff not working. then tried the medtronic equipment and self reproted his BP as 130/70. [place] is not aware of any issues that would have prevented the transmission. states I am not able to check my weight at this time due to difficulty standing and my BG levels have been fine. plans to resume the health checks as soon as he has the pain/ambulation improved. Discused with [place] importance of continuing with daily health checks. Instructed that pain can sometimes increase his BP/vitals. Instructed [place] that he should recheck his BP during the day if it has previously been elevated or if he is having a change in condition. [place] states understanding. [place] reports that he is using tylenol and oxycodone as prescribed but does not seem to be doing much. Instructed to call orthopedic surgeon for furhter advice/intervention. [place] ageeed to f/u with ortho provider. Discusse Intervention(s)/Plan: Teach Vetearn importance of completing Daily health check Teach effects of pain on vitals and overall health Encouraged [place] to continue with low sodium/consistant carb diet Encouraged to complete reccomended daily exercise as tolerated to call 911 for all emergent changes TYPE OF ENCOUNTER: Telephone Length of call: 11-20 minutes /skinny/ TOÑO LORD RN [facility]-Home Telehealth Cracking Still Operator Signed: 10/17/2023 12:59 TOÑO LORD [place] [facility]
--- OUTSIDE RECORDS SUMMARY | 2024-05-29 10:29 | XMS_ITS | Encounter Summary ---
Author Name [facility] Address [address] [place] [address] Care Team Providers Care Vacuum Form Operator Name Role Phone STACEY HORTON Primary [...] STAND YON SELF May 29, 2001 [phone] Abdullahi SEVERINO PATIENT MEDICARE (WNR) MEDICARE (M) PART B Jul 18, 2012 PART B [id number] Abdullahi SEVERINO PATIENT MEDICARE (WNR) MEDICARE (M) PART B Jul 18, 2012 PART B [id number] Abdullahi SEVERINO PATIENT MEDICARE (WNR) MEDICARE (M) PART B Jul 18, 2012 PART B [id number] Abdullahi SEVERINO PATIENT MEDICARE (WNR) MEDICARE (M) PART A Dec 19, 2011 PART A [id number] Abdullahi SEVERINO PATIENT MEDICARE (WNR) MEDICARE (M) PART A Dec 19, 2011 PART A [id number] [id number] Abdullahi SEVERINO PATIENT MEDICARE (WNR) MEDICARE (M) PART A Dec 19, 2011 PART A [id number] Abdullahi SEVERINO PATIENT Selected Encounter This section includes the information on record at [place] for the Encounter. Date/Time Encounter Type Encounter Description Reason Provider Source October 18, 2023 04:01 PM Outpatient Encounter HT NON-VIDEO MONITORING ICD-10-CM E11.9 Type 2 diabetes mellitus without complications [facility] Encounter Template Text not used by [place] Assessments - Encounter Diagnoses This section includes the primary and secondary diagnoses documented for the Encounter. Date/Time Primary/Secondary Diagnosis Diagnosis Name Provider Source October 18, 2023 04:52 PM PRIMARY Type 2 diabetes mellitus without complications RISA,[facility] [place] [facility] October 18, 2023 04:52 PM SECONDARY Essential (primary) hypertension RISA,[facility] [place] [facility] Plan of Treatment: Future Appointments (+ 6 months) and Future Tests (+/- 45 days) The Plan of Treatment section includes future care activities for the patient from all [place] treatmentfacilities. This section includes future appointments and future orders which are active, pending or scheduled. Future Appointments This section includes appointments that were scheduled to occur 6 months from the date of the Encounter, up to a maximum of 20 appointments. The data comes from all [place] treatment facilities. Appointment Date/Time Appointment Type Appointme nt Facility Name Nov 20, 2023 10:00 AM AMBULATORY - MEDICINE [facility] Dec 05, 2023 10:30 AM AM[facility]ULATORY - MEDICINE [place] [facility] [place] [facility] Dec 25, 2023 01:00 PM [facility] [place] Dec 26, 2023 10:45 AM AMBULATORY - NONE [facility] [place] [facility] Dec 31, 2023 08:00 AM AMBULATORY - MEDICINE [facility] [place] [facility] Jan 17, 2024 08:00 AM [facility] [place] [facility] Feb 17, 2024 11:00 AM [facility]ULAT[facility]INE [facility] [place] [facility] Mar 05, 2024 01:30 PM [facility]ULATORY [facility]ICINE [facility] [place] [facility] Mar 25, 2024 01:00 PM [facility] Apr 06, 2024 10:00 AM [facility] [place] [facility]ICINE [place] [facility] [place] [facility] Social History: Smoking Status (Most current) and Tobacco Use (All prior to encounter date) This section includes the most current, and the historical, smoking and tobacco- related health factors from the [place] facility where the Encounter took place. Current Smoking Status This section includes the most current smoking, or tobacco-related health factor, from the [place] facility where the Encounter took place. Date/Time Current Smoking Status Comment [facility] Apr 05, 2023 11:30 AM VA-TOBACCO FORMER USER [facility] [place] [facility] Tobacco Use History This section includes a history of the smoking, or tobacco-related health factors, that were collected on or before the date of the Encounter. The data comes from the [place] facility where the Encounter took place. Date/Time Smoking Status/Tobac co Use Comment Facility Apr 05, 2023 11:30 AM VA-TOBACCO QUIT 15 YRS OR MORE [facility] [place] [facility] Dec 28, 2021 09:30 AM VA-TOBACCO FORMER USER [facility] [place] [facility] Dec 28, 2021 09:30 AM VA-TOBACCO QUIT 15 YRS OR MORE [facility] [place] [facility] Dec 02, 2020 09:00 AM VA-TOBACCO FORMER USER [facility] [place] [facility] Dec 02, 2020 09:00 AM VA-TOBACCO QUIT 15 YRS OR MORE [facility] [place] [facility] Aug 18, 2019 03:19 PM VA-TOBACCO FORMER USER [facility] [place] [facility] Aug 18, 2019 03:19 PM VA-TOBACCO QUIT 15 YRS OR MORE [facility] [place] [facility] September 23, 2018 09:58 AM VA-TOBACCO FORMER USER [facility] [place] [facility] September 23, 2018 09:58 AM VA-TOBACCO QUIT 15 YRS OR MORE [facility] [place] [facility] September 30, 2017 09:20 AM QUIT TOBACCO USE > 7 YEARS AGO [facility] Aug 20, 2016 09:17 AM QUIT TOBACCO USE > 7 YEARS AGO quit 1991 [facility] Jun 27, 2016 09:45 AM CURRENT SMOKER Quit 25 years ago [facility] Apr 18, 2015 09:06 AM QUIT TOBACCO USE > 7 YEARS AGO quit in 1991 [facility] Mar 21, 2005 10:12 AM HISTORY OF SMOKING [facility] Mar 21, 2005 10:12 AM QUIT TOBACCO USE > [address] A[address] [facility] Advance Directives: All historical and current Section Date Range: From patient's date of to the date document was created. This section includes ALL of a patient's completed or amended [place] Advance and Rescinded Directives. The entries below indicate that a directive exists for the patient, but an actual copy is not included with this document. The data comes from all [place] facilities. Date Advance Directives Provider Source Feb 04, 2019 ADVANCE DIRECTIVE CESAR LUA [facility] Encounter Notes: All associated encounter notes This section contains the clinical notes associated to the Encounter. Date/Time Encounter Note(s) Provider Source October 18, 2023 04:51 PM CARE COORDINATION HOME TELEHEALTH SUMMARIZATION NOTE: LOCAL TITLE: MONTHLY MONITOR NOTE STANDARD TITLE: CARE COORDINATION HOME TELEHEALTH SUMMARIZATION DATE OF NOTE: OCTOBER 18, 2023@16:51 ENTRY DATE: OCTOBER 18, 2023@16:51:20 AUTHOR: TOÑO LORD EXP COSIGNER: URGENCY: STATUS: COMPLETED The Cord is enrolled in the Home Telehealth (HT) program and continues to be monitored via HT technology. The data sent by the is reviewed and analyzed by the staff, who provide ongoing case management and health education while communicating and collaborating with the health care team as appropriate. This note covers a total of 30 minutes for the month monitored. Month monitored: SEPTEMBER 2023 Dx: DM/HTN /es/ TOÑO LORD RN RPM-Home Telehealth Hydroelectric Production Manager Signed: 10/18/2023 16:54 TOÑO LORD [facility]
--- OUTSIDE RECORDS SUMMARY | 2024-05-29 10:29 | XMS_ITS | Encounter Summary ---
Author Name [facility] [place] [facility] [place] [facility] [facility] [place] Address [address] [place] [id number] Care Team Providers Care Garment Tag Stringer Name Role Phone STACEY AGGARWAL Primary Care Provider Unavaila ble Insurance Providers: [...] STAND YON SELF May 29[birth year] [phone] [id number] Abdullahi SEVERINO PATIENT MEDICARE (WNR) MEDICARE (M) PART B Jul 18, 2012 PART B [id number] Abdullahi SEVERINO PATIENT MEDICARE (WNR) MEDICARE (M) PART B Jul 18, 2012 PART B [id number] Abdullahi SEVERINO PATIENT MEDICARE (WNR) MEDICARE (M) PART B Jul 18, 2012 PART B [id number] Abdullahi SEVERINO PATIENT MEDICARE (WNR) MEDICARE (M) PART A Dec 19, 2011 PART A [id number] [id number] Abdullahi SEVERINO PATIENT MEDICARE (WNR) MEDICARE (M) PART A Dec 19, 2011 PART A [id number] [id number] Abdullahi SEVERINO PATIENT MEDICARE (WNR) MEDICARE (M) PART A Dec 19, 2011 PART A [id number] Abdullahi SEVERINO PATIENT Selected Encounter This section includes the information on [place] at [place] for the Encounter. Date/Time Encounter Type Encounter Description Reason Provider Source Nov 20, 2023 10:00 AM DIAB MANAGE TRN PER INDIV DIABETES CLINIC ICD-10-CM E11.9 Type 2 diabetes mellitus without complications IBRAHIMA VANCE Afshin Encounter Template Text not used by [place] Assessments - Encounter Diagnoses This section includes the primary and secondary diagnoses documented for the Encounter. Date/Time Primary/Secondary Diagnosis Diagnosis Name Provider Source Nov 20, 2023 03:04 PM PRIMARY Type 2 diabetes mellitus without complications MAURO VANCE ROSEBUD Plan of Treatment: Future Appointments (+ 6 [...] Date/Time Appointment Type Appointme nt Facility Name Dec 05, 2023 10:30 AM AM[place]AT[place]IC[place] [facility] [place] [facility] Dec 25, 2023 01:00 PM AMBULATORY - MEDICINE [facility] Dec 26, 2023 10:45 AM AMBULATORY - NONE [place] [facility] [facility] Dec 31, 2023 08:00 AM AM[place]ULATORY [place]ICINE [place] [facility] Jan 17, 2024 08:00 AM [place]INE [place] [facility] [facility] Feb 17, 2024 11:00 AM AM[place]ULATORY [place]ICINE [place] [facility] [place] [facility] [facility] Mar 05, 2024 01:30 PM AM[place]UL[place]ORY [place] [facility] Mar 25, 2024 01:00 PM AMBULATORY - MEDICINE [facility] Apr 06, 2024 10:00 AM [facility] Apr 23, 2024 10:45 AM AMBULATORY - NONE [facility] Apr 29, 2024 10:00 AM AMBULATORY - MEDICINE [facility] Active, Pending, and Scheduled Orders This section includes a listing of several types of active, pending, and scheduled orders, including clinic medications orders, diagnostic test orders, procedure orders and consult orders; where the start date of the order is 45 days before the date of the Encounter or 45 days after the date of theEncounter. The data comes from all [place] treatment facilities. Test Date/Time Test Type Test Details Facility Name Dec 27, 2023 03:51 PM Consult Order COMMUNITY CARE-PHYSICAL THERAPY Cons [employer] Lab Results: +/- 30 days of [...] Range Comment Dec 05, 2023 10:58 AM [facility] HEMOGLOBIN A1C PANEL Specimen Type: [...] Sep 04, 2023 12:58 PM Reporting Lab: [facility] [address] [facility] [id number] Performing Lab: [address] [address] HEMOGLOBIN A1C 6.0 H 4.0-5.6 Dec 05, 2023 10:58 AM [facility] BASIC METABOLIC PANEL (non-fasting) Specimen Type: SERUM No comment entered. Ordering Provider: DEISY VELASCO Report Released Date/Time: Sep 04, 2023 12:58 PM Reporting Lab: [facility] [address] [facility] [id number] Performing Lab: [facility] [address] [facility] [address] UREA NITROGEN 19 mg/dL 7-25 GLUCOSE 147 mg/dL H 65-100 SODIUM 136 mmol/L 135-145 POTASSIUM 4.6 mmol/L 3.5-5.0 CHLORIDE 104 mmol/L 100-110 CO2 23 meq/L 20-30 CREATININE, Serum 0.92 mg/dL 0.50-1.40 eGFR(CKD-EPI 2020) 86 mL/min >60 Advance Directives: All historical and [...] Feb 04, 2019 ADVANCE DIRECTIVE CESAR LUA [facility] Encounter Notes: All associated encounter notes This section contains the clinical notes associated to the Encounter. Date/Time Encounter Note(s) Provider Source Nov 22, 2023 04:38 PM ADDENDUM: LOCAL TITLE: Addendum STANDARD TITLE: ADDENDUM DATE OF NOTE: NOV 22, 2023@16:38:32 ENTRY DATE: NOV 22, 2023@16:38:32 AUTHOR: DEISY VELASCOIGNER: URGENCY: STATUS: COMPLETED Yes, kindly let pt know that he should take a 0.5 mg dose. After three weeks, he should reach out to have dose increased to 1 mg if tolerated. The 1 mg dose is a different pen. Thank you! /skinny/ DEISY VELASCO MD STAFF PHYSICIAN Signed: 11/22/2023 16:40 Receipt Acknowledged By: 12/03/2023 11:53 /skinny/ MAURO VANCE RN,BSN, [facility] DIABETES CHOPPED STRAND OPERATOR, RN --- Original Document --- 11/20/23 DIABETES EDU FOLLOW UP: FOLLOW UP DIABETES EDUCATION VISIT Demographics: Patient Name: OTONIEL SEVERINO Age: 78 Sex: MALE Race: WHITE MARITAL STATUS - NEVER Introduction: identified with 2 identifiers: [X] Full Name [X] Date of [ ] Address [ ] [place] ID Card PATIENT PHONE - PHONE NUMBER [CELLULAR] - Is patient phone number correct, if not, enter below: Milroy's phone number: OTONIEL SEVERINO [address], [place], [address] MOST RECENT LABS: HEMOGLOBIN A1C TREND Collection DT Spec HGBA1c 08/16/2023 07:56 BLOOD 7.3 H 04/25/2023 08:45 BLOOD 6.7 H 01/22/2023 09:03 BLOOD 8.0 H 10/18/2022 10:16 BLOOD 7.7 H 06/22/2022 08:29 BLOOD 8.4 H CHEM 7 TREND LAB CUMULATIVE SELECTED Collection DT Spec GLUCOSE BUN CREATIN Sodium K+/Pot CL CO2 08/16/2023 07:56 SERUM 162 H 17 1.06 139 4.1 104 24 04/25/2023 08:45 SERUM 89 21 0.94 140 4.0 106 25 01/22/2023 09:03 SERUM 178 H 26 H 1.07 136 4.2 101 23 10/18/2022 10:16 SERUM 119 H 15 0.83 140 4.3 106 22 06/22/2022 08:29 SERUM 305 H 24 0.96 136 4.4 103 23 Collection DT Spec eGFR 03/01/2009 08:58 SERUM >60 03/09/2008 11:19 SERUM >60 LAB CUMULATIVE SELECTED 2 No selection items chosen for this component. CHEM 7 Results Collection DT Spec Sodium K+/Pot CL CO2 GLUCOSE BUN eGFR 08/16/2023 07:56 SERUM 139 4.1 104 24 162 H 17 04/25/2023 08:45 SERUM 140 4.0 106 25 [...] Spec CHOL HDL CHO/HDL LDL-d LDL-c TRIG 08/16/2023 07:56 SERUM 122 31 L 3.9 45 Reflex to dLDL 399 H 04/25/2023 08:45 SERUM 119 29 L 4.1 39 Reflex to dLDL 709 H 01/22/2023 09:03 SERUM 135 31 L 4.4 45 Reflex to dLDL 550 H 06/22/2022 08:29 SERUM 128 29 L 4.4 45 Reflex to dLDL 548 H 12/20/2021 09:29 SERUM 130 28 L 4.6 51 Reflex to dLDL 409 H CREATININE-EGFR 08/16/23 07:56 1.06 04/25/23 08:45 0.94 01/22/23 09:03 1.07 EGFR - NONE FOUND WEIGHT: 244 lb [110.68 kg] (10/04/2023 10:49) HEIGHT: 71 in [180.3 cm] (10/04/2023 10:49) BMI: 34.1 ___ REASON FOR VISIT: Type 2 diabetes, being treated with U500 concentrated insulin. Last wore the Bhargav 2 sensor on October 22. He reports 2 sensors fell off and he did not call the company have them replaced. Has been relying on the meter to check his glucose. We had trouble downloading the Accu-check glucose and recorded 7 days of recent blood sugars from the meter memory. Reports he was doing well with his appetite when he was taking Ozempic 0.25 mg once a week and then he went up in a month to 0.5 mg once a week. Reports the dose was dropped back down to 0.25 mg and he is starting the have the munchies again. He had these before the Ozempic was started. Reported right knee replacement surgery on October 13. Walking with a cane. Behavior health goals set at previous visit: Continue taking doses of U500 insulin and continue to wear the Bhargav sensor to check blood sugars. Clinical or Quality of Life outcome goal set at last visit: Reports he had knee replacement surgery on October 13 Diabetes Distress Support: How would you rate your overall health? Great, legs do hurt with walking. Feeling overwhelmed by the demands of diabetes? No, sometimes more related to personal issues in his life. On a scale of 1-6, how would you rate your distress with diabetes? 0 for diabetes; 6 with his adopted son. How do you deal with this stress/distress: Goes to college hockey games with a friend. NUTRITION: In [...] LABELING- BENEFITS OF WEIGHT LOSS- PHYSICAL ACTIVITY Had knee replacement surgery in September and walking with cane. Services utilized during the past year Clinic visit/primary care provider- Nutrition/dietitian- not recently. Podiatry- goes to [facility] Eye exam- May 2023, goes to [facility] Lab tests- done in July. Dental- Vaccines- had flu vaccine, has not had COVID vaccine. 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 There appear to be 2 low glucose for the last 30 days. Unable to download the meter in the office today, however, recent blood sugars were pulled off the meter memory: 11/19: 7 am- 115 7: 7 am- 173; 5 pm- 196; 8 pm- 181 7: 6 pm- 159 11/16: 5 am- 200; 1 pm- 179; 7 pm- 85 11/15: 8 am- 195; 8 pm- 142 11/14: 6 am- 163; 12 pm- 91 11/13: 6 am- 97; 5 pm- 110 Used the sensor during the month of June of 2023: 06/13/23- 07/10/23 Average glucose for the last [...] 20-68 mg/dl what the sensor was reading. DIABETES MEDICATIONS: U500 insulin before meals (3x/day): 85-85-75 units Sometimes he does not take a dose if his glucose is low (below 80 mg/dl) Empagliflozin 25 mg, 1 tab once a day. Metformin 500 mg, 1 tab twice a day. Semaglutide 0.25 mg once a week. ADMINISTERS VIA pen STORAGE OF INSULIN/OTHER INJECTABLES: INJECTIONS SITES: legs SITES VIEWED: No ANY EVIDENCE OF LIPOHYPERTROPHY HYPOGLYCEMIA Download of sensor reveals 1 low blood sugars in the last month. CAUSES/SYMPTOMS: none TREATMENT/PREVENTION: peaches or nectarines, peanut butter and pretzel sticks MEDIC ID/ HAS ONE: No GLUCAGON: Yes, his adopted son DRIVING SAFETY: Reviewed HYPERGLYCEMIA ASSESSMENT: Kindly referred by Dr. Velasco. Being treated with U500 insulin, in addition to Freestyle Bhargav 2 sensor. Last A1C was 7.3% in July. Destiney had 2 bad sensors and did not get a chance to have the sensor replaced. Destiney has been using his meter to check glucose. He is here to learn how to use the Bhargav 3 sensor. Gave supplies for the Bhargav 3 sensor, both the youth coordinator and sensors. No changes made to Destiney's insulin since he is doing well and once he is connected to the Bhargav 3 sensor, there will be full days of information. He is very good about scanning his sensor a majority of the time, however, there are still large blocks of time where data is missing. Destiney started using the Bhargav 3 sensor today, with no difficulties. He admits he is confused because he started the Ozempic of 0.25 mg once a week and was instructed to increase the dose to 0.5 mg once a week in a month. However, a RX was called in recently for the 0.25 mg once a week and now that the dose has decreased, he is noticing how his appetite has increased and he likes how the Ozempic had decreased his appetite and was helping him start to lose weight. Milroy scheduled to see Endocrine in November and Diabetes Education in December. Behavioral goal 1 met: 100% of the [...] Dates Covered & Assessment: 12/05/22; 04/03/23; 08/07/23; 11/20/23; Healthy Eating (Describe effect of type, amount and timing of food on blood glucose; list 3 methods for planning meals) Dates Covered & Assessment: 12/05/22; 04/03/23; 08/07/23; 11/20/23; Being Active (State effect of exercise on blood glucose levels) Dates Covered & Assessment: 12/05/22; 04/03/23; 08/07/23; 11/20/23; Taking Medication (State effect of diabetes medicines on diabetes; name diabetes medication taking, action and side effects) Dates Covered & Assessment: 12/05/22; 04/03/23; 08/07/23; 11/20/23; Monitoring Glucose (Identify recommended blood glucose targets and personal targets) Dates Covered & Assessment: 12/05/22; 04/03/23; 08/07/23; 11/20/23 (reviewed Bhargav 3); Acute Complications (List symptoms and treatment of hyper- and hypoglycemia, DKA, sick day guidelines and guidelines for severe weather or situation crisis and diabetes supply management) Dates Covered & Assessment: 12/05/22; 04/03/23; 08/07/23; 11/20/23; Chronic Complications (Define the relationship of blood glucose levels to equipment operator intermodal yard complications of diabetes and screening and preventative measures) Dates Covered & Assessment: 12/05/22; 04/03/23; 08/07/23; 11/20/23; Lifestyle and Healthy Coping (Describe life style and healthy coping strategies to promote diabetes self-management) Dates Covered & Assessment: 12/05/22; 04/03/23; 08/07/23; 11/20/23; Diabetes Distress and Support (Recognize diabetes Distress and be able to identify support options) Dates Covered & Assessment: 12/05/22; 04/03/23; 08/07/23; 11/20/23; HEALTH GOAL #1: In order to meet this goal, I will: Start using the Bhargav 3 sensor to check glucose. HEALTH GOAL #2: In order to meet this goal, I will: Clinical or Quality of Life outcome baseline: FUTURE APPOINTMENTS: 09/04/2023 10:00 NHM/ENDOCRINE 09/05/2023 09:00 COM CARE-ORTHO SURGICAL 09/09/2023 14:00 CWM/SO/SLEEP DME/WITH EDU 10/04/2023 11:00 CWM/NO/PACT 7 DM type is : Type 2 diabetes Length of Visit: 60 minutes /skinny/ MAURO VANCE RN,BSN, [facility] DIABETES CHOPPED STRAND OPERATOR, RN Signed: 11/20/2023 15:04 Receipt Acknowledged By: 11/21/2023 11:47 /skinny/ DEISY VELASCO MD STAFF PHYSICIAN 11/20/2023 15:18 /skinny/ Stacey Aggarwal DNP, ACCOUNTANT CLERK-BC, CNL Primary Care Nurse Practitioner 11/20/2023 ADDENDUM STATUS: COMPLETED came in September to learn how to use the Ozempic with Angélica Archuleta and he reports he was told to increase his dose of Ozempic after 1 month to 0.5 mg once a week. He reports recently the RX was updated and the dose is back down to 0.25 mg and he is hungry again. He has noticed less hunger on the 0.5 mg once a week. He would like to return to the higher dose and was tolerating it well. Please let me know you approve going back up to 0.5 mg once a week and Residential Program Worker will call Milroy with an update. Thank you. /eusbeio VANCE RN,BSN, [facility] DIABETES CHOPPED STRAND OPERATOR, RN Signed: 11/20/2023 15:07 Receipt Acknowledged By: 11/22/2023 16:40 /skinny/ DEISY VELASCO MD STAFF PHYSICIAN DEISY VELASCO Nov 20, 2023 03:04 PM ADDENDUM: LOCAL TITLE: Addendum STANDARD TITLE: ADDENDUM DATE OF NOTE: NOV 20, 2023@15:04:56 ENTRY DATE: NOV 20, 2023@15:04:56 AUTHOR: MAURO VANCE EXP COSIGNER: URGENCY: STATUS: COMPLETED came in September to learn how to use the Ozempic with Angélica Archuleta and he reports he was told to increase his dose of Ozempic after 1 month to 0.5 mg once a week. He reports recently the RX was updated and the dose is back down to 0.25 mg and he is hungry again. He has noticed less hunger on the 0.5 mg once a week. He would like to return to the higher dose and was tolerating it well. Please let me know you approve going back up to 0.5 mg once a week and Residential Program Worker will call with an update. Thank you. /es/ MAURO VANCE RN,BSN, [facility] DIABETES CHOPPED STRAND OPERATOR, RN Signed: 11/20/2023 15:07 Receipt Acknowledged By: 11/22/2023 16:40 /es/ DEISY VELASCO MD STAFF PHYSICIAN --- Original Document --- 11/20/23 DIABETES EDU FOLLOW UP: FOLLOW UP DIABETES EDUCATION VISIT Demographics: Patient Name: OTONIEL SEVERINO Age: 78 Sex: MALE Race: WHITE MARITAL STATUS - NEVER Introduction: Milroy identified with 2 identifiers: [X] Full Name [X] Date of [ ] Address [ ] [place] ID Card PATIENT PHONE - PHONE NUMBER [CELLULAR] - Is patient phone number correct, if not, enter below: 's phone number: OTONIEL SEVERINO [address], [place], [address] MOST RECENT LABS: HEMOGLOBIN A1C TREND Collection DT Spec HGBA1c 08/16/2023 07:56 BLOOD 7.3 H 04/25/2023 08:45 BLOOD 6.7 H 01/22/2023 09:03 BLOOD 8.0 H 10/18/2022 10:16 BLOOD 7.7 H 06/22/2022 08:29 BLOOD 8.4 H CHEM 7 TREND LAB CUMULATIVE SELECTED Collection DT Spec GLUCOSE BUN CREATIN Sodium K+/Pot CL CO2 08/16/2023 07:56 SERUM 162 H 17 1.06 139 4.1 104 24 04/25/2023 08:45 SERUM 89 21 0.94 140 4.0 106 25 01/22/2023 09:03 SERUM 178 H 26 H 1.07 136 4.2 101 23 10/18/2022 10:16 SERUM 119 H 15 0.83 140 4.3 106 22 06/22/2022 08:29 SERUM 305 H 24 0.96 136 4.4 103 23 Collection DT Spec eGFR 03/01/2009 08:58 SERUM >60 03/09/2008 11:19 SERUM >60 LAB CUMULATIVE SELECTED 2 No selection items chosen for this component. CHEM 7 Results Collection DT Spec Sodium K+/Pot CL CO2 GLUCOSE BUN eGFR 08/16/2023 07:56 SERUM 139 4.1 104 24 162 H 17 04/25/2023 08:45 SERUM 140 4.0 106 25 [...] Spec CHOL HDL CHO/HDL LDL-d LDL-c TRIG 08/16/2023 07:56 SERUM 122 31 L 3.9 45 Reflex to dLDL 399 H 04/25/2023 08:45 SERUM 119 29 L 4.1 39 Reflex to dLDL 709 H 01/22/2023 09:03 SERUM 135 31 L 4.4 45 Reflex to dLDL 550 H 06/22/2022 08:29 SERUM 128 29 L 4.4 45 Reflex to dLDL 548 H 12/20/2021 09:29 SERUM 130 28 L 4.6 51 Reflex to dLDL 409 H CREATININE-EGFR 08/16/23 07:56 1.06 04/25/23 08:45 0.94 01/22/23 09:03 1.07 EGFR - NONE FOUND WEIGHT: 244 lb [110.68 kg] (10/04/2023 10:49) HEIGHT: 71 in [180.3 cm] (10/04/2023 10:49) BMI: 34.1 ___ REASON FOR VISIT: Type 2 diabetes, being treated with U500 concentrated insulin. Last wore the Bhargav 2 sensor on October 22. He reports 2 sensors fell off and he did not call the company have them replaced. Has been relying on the meter to check his glucose. We had trouble downloading the Accu-check glucose and recorded 7 days of recent blood sugars from the meter memory. Reports he was doing well with his appetite when he was taking Ozempic 0.25 mg once a week and then he went up in a month to 0.5 mg once a week. Reports the dose was dropped back down to 0.25 mg and he is starting the have the munchies again. He had these before the Ozempic was started. Reported right knee replacement surgery on October 13. Walking with a cane. Behavior health goals set at previous visit: Continue taking doses of U500 insulin and continue to wear the Bhargav sensor to check blood sugars. Clinical or Quality of Life outcome goal set at last visit: Reports he had knee replacement surgery on October 13 Diabetes Distress Support: How would you rate your overall health? Great, legs do hurt with walking. Feeling overwhelmed by the demands of diabetes? No, sometimes more related to personal issues in his life. On a scale of 1-6, how would you rate your distress with diabetes? 0 for diabetes; 6 with his adopted son. How do you deal with this stress/distress: Goes to [employer] games with a friend. NUTRITION: In the [...] LABELING- BENEFITS OF WEIGHT LOSS- PHYSICAL ACTIVITY Had knee replacement surgery in September and walking with cane. Services utilized during the past year Clinic visit/primary care provider- Nutrition/dietitian- not recently. Podiatry- goes to [facility] Eye exam- May 2023, goes to [facility] Lab tests- done in July. Dental- Vaccines- had flu vaccine, has not had COVID vaccine. Comments: BLOOD GLUCOSE MONITORING Downloaded [employer] 2 youth coordinator in clinic today: Name: Otoniel SEVERINO Date of : 1945 Report Period: 09/26/2023 - 10/23/2023 (28 days) Generated: 11/20/2023 % Time CGM Active: 51% Glucose Statistics and Targets Average Glucose: 173 mg/dL Glucose Management Indicator (GMI): 7.4% Glucose Variability (%CV): 36.9% Target Range: 70 - 180 mg/dL Time in Ranges Very High: >250 mg/dL --- 11% High: 181 - 250 mg/dL --- 26% Target Range: 70 - 180 mg/dL --- 61% Low: 54 - 69 mg/dL --- 2% Very Low: <54 mg/dL --- 0% The main trend noted are elevated glucose between the hours of 8 am until 11 am and between 11 pm and 12 am. There appear to be 2 low glucose for the last 30 days. Unable to download the meter in the office today, however, recent blood sugars were pulled off the meter memory: 3: 7 am- 115 7/2: 7 am- 173; 5 pm- 196; 8 pm- 181 7/: 6 pm- 159 6: 5 am- 200; 1 pm- 179; 7 pm- 85 11/15: 8 am- 195; 8 pm- 142 11/14: 6 am- 163; 12 pm- 91 11/13: 6 am- 97; 5 pm- 110 Used the sensor during the month of June of 2023: 06/13/23- 07/10/23 Average glucose for the last [...] the night, between 12 am-3 am and Milroy reports that when he checks his glucose with a meter, his blood sugar is not actually low, he does not have symptoms and when he has checked his meter, his glucose is actually 90-110 mg/dl instead of 20-68 mg/dl what the sensor was reading. DIABETES MEDICATIONS: U500 insulin before meals (3x/day): 85-85-75 units Sometimes he does not take a dose if his glucose is low (below 80 mg/dl) Empagliflozin 25 mg, 1 tab once a day. Metformin 500 mg, 1 tab twice a day. Semaglutide 0.25 mg once a week. ADMINISTERS VIA pen STORAGE OF INSULIN/OTHER INJECTABLES: INJECTIONS SITES: legs SITES VIEWED: No ANY EVIDENCE OF LIPOHYPERTROPHY HYPOGLYCEMIA Download of sensor reveals 1 low blood sugars in the last month. CAUSES/SYMPTOMS: none TREATMENT/PREVENTION: peaches or nectarines, peanut butter and pretzel sticks MEDIC ID/ HAS ONE: No GLUCAGON: Yes, his adopted son DRIVING SAFETY: Reviewed HYPERGLYCEMIA ASSESSMENT: Kindly referred by Dr. Velasco. Being treated with U500 insulin, in addition to Freestyle Bhargav 2 sensor. Last A1C was 7.3% in July. Milroy had 2 bad sensors and did not get a chance to have the sensor replaced. Destiney has been using his meter to check glucose. He is here to learn how to use the Bhargav 3 sensor. Gave supplies for the Bhargav 3 sensor, both the youth coordinator and sensors. No changes made to 's insulin since he is doing well and once he is connected to the Bhargav 3 sensor, there will be full days of information. He is very good about scanning his sensor a majority of the time, however, there are still large blocks of time where data is missing. Destiney started using the Bhargav 3 sensor today, with no difficulties. He admits he is confused because he started the Ozempic of 0.25 mg once a week and was instructed to increase the dose to 0.5 mg once a week in a month. However, a RX was called in recently for the 0.25 mg once a week and now that the dose has decreased, he is noticing how his appetite has increased and he likes how the Ozempic had decreased his appetite and was helping him start to lose weight. Milroy scheduled to see Endocrine in November and Diabetes Education in December. Behavioral goal 1 met: 100% of the [...] Dates Covered & Assessment: 12/05/22; 04/03/23; 08/07/23; 11/20/23; Healthy Eating (Describe effect of type, amount and timing of food on blood glucose; list 3 methods for planning meals) Dates Covered & Assessment: 12/05/22; 04/03/23; 08/07/23; 11/20/23; Being Active (State effect of exercise on blood glucose levels) Dates Covered & Assessment: 12/05/22; 04/03/23; 08/07/23; 11/20/23; Taking Medication (State effect of diabetes medicines on diabetes; name diabetes medication taking, action and side effects) Dates Covered & Assessment: 12/05/22; 04/03/23; 08/07/23; 11/20/23; Monitoring Glucose (Identify recommended blood glucose targets and personal targets) Dates Covered & Assessment: 12/05/22; 04/03/23; 08/07/23; 11/20/23 (reviewed Bhargav 3); Acute Complications (List symptoms and treatment of hyper- and hypoglycemia, DKA, sick day guidelines and guidelines for severe weather or situation crisis and diabetes supply management) Dates Covered & Assessment: 12/05/22; 04/03/23; 08/07/23; 11/20/23; Chronic Complications (Define the relationship of blood glucose levels to equipment operator intermodal yard complications of diabetes and screening and preventative measures) Dates Covered & Assessment: 12/05/22; 04/03/23; 08/07/23; 11/20/23; Lifestyle and Healthy Coping (Describe life style and healthy coping strategies to promote diabetes self-management) Dates Covered & Assessment: 12/05/22; 04/03/23; 08/07/23; 11/20/23; Diabetes Distress and Support (Recognize diabetes Distress and be able to identify support options) Dates Covered & Assessment: 12/05/22; 04/03/23; 08/07/23; 11/20/23; HEALTH GOAL #1: In order to meet this goal, I will: Start using the Bhargav 3 sensor to check glucose. HEALTH GOAL #2: In order to meet this goal, I will: Clinical or Quality of Life outcome baseline: FUTURE APPOINTMENTS: 09/04/2023 10:00 NHM/ENDOCRINE 09/05/2023 09:00 COM CARE-ORTHO SURGICAL 09/09/2023 14:00 CWM/SO/SLEEP DME/WITH EDU 10/04/2023 11:00 CWM/NO/PACT 7 DM type is : Type 2 diabetes Length of Visit: 60 minutes /skinny/ MUARO VNACE RN,BSN, [facility] DIABETES CHOPPED STRAND OPERATOR, RN Signed: 11/20/2023 15:04 Receipt Acknowledged By: 11/21/2023 11:47 /skinny/ DEISY VELASCO MD STAFF PHYSICIAN 11/20/2023 15:18 /skinny/ Stacey Aggarwal DNP, ACCOUNTANT CLERK-BC, CNL Primary Care Nurse Practitioner 11/22/2023 ADDENDUM STATUS: COMPLETED Yes, kindly let pt know that he should take a 0.5 mg dose. After three weeks, he should reach out to have dose increased to 1 mg if tolerated. The 1 mg dose is a different pen. Thank you! /eusebio VELASCO MD STAFF PHYSICIAN Signed: 11/22/2023 16:40 Receipt Acknowledged By: * AWAITING SIGNATURE * PINKY,MAUROMAURO PETER Nov 20, 2023 09:59 AM DIABETOLOGY EDUCAT ION NOTE: LOCAL TITLE: DIABETES EDU FOLLOW UP STANDARD TITLE: DIABETOLOGY EDUCATION NOTE DATE OF NOTE: NOV 20, 2023@09:59 ENTRY DATE: NOV 20, 2023@09:59:21 AUTHOR: MAURO VANCE EXP COSIGNER: URGENCY: STATUS: COMPLETED DIABETES EDU FOLLOW UP Has ADDENDA FOLLOW UP DIABETES EDUCATION VISIT Demographics: Patient Name: OTONIEL SEVERINO Age: 78 Sex: MALE Race: WHITE MARITAL STATUS - NEVER Introduction: [place] identified with 2 identifiers: [X] Full Name [X] Date of [ ] Address [ ] [place] ID Card PATIENT PHONE - PHONE NUMBER [CELLULAR] - Is patient phone number correct, if not, enter below: 's phone number: OTONIEL SEVERINO [address], [place], [address] MOST RECENT LABS: HEMOGLOBIN A1C TREND Collection DT Spec HGBA1c 08/16/2023 07:56 BLOOD 7.3 H 04/25/2023 08:45 BLOOD 6.7 H 01/22/2023 09:03 BLOOD 8.0 H 10/18/2022 10:16 BLOOD 7.7 H 06/22/2022 08:29 BLOOD 8.4 H CHEM 7 TREND LAB CUMULATIVE SELECTED Collection DT Spec GLUCOSE BUN CREATIN Sodium K+/Pot CL CO2 08/16/2023 07:56 SERUM 162 H 17 1.06 139 4.1 104 24 04/25/2023 08:45 SERUM 89 21 0.94 140 4.0 106 25 01/22/2023 09:03 SERUM 178 H 26 H 1.07 136 4.2 101 23 10/18/2022 10:16 SERUM 119 H 15 0.83 140 4.3 106 22 06/22/2022 08:29 SERUM 305 H 24 0.96 136 4.4 103 23 Collection DT Spec eGFR 03/01/2009 08:58 SERUM >60 03/09/2008 11:19 SERUM >60 LAB CUMULATIVE SELECTED 2 No selection items chosen for this component. CHEM 7 Results Collection DT Spec Sodium K+/Pot CL CO2 GLUCOSE BUN eGFR 08/16/2023 07:56 SERUM 139 4.1 104 24 162 H 17 04/25/2023 08:45 SERUM 140 4.0 106 25 [...] Spec CHOL HDL CHO/HDL LDL-d LDL-c TRIG 08/16/2023 07:56 SERUM 122 31 L 3.9 45 Reflex to dLDL 399 H 04/25/2023 08:45 SERUM 119 29 L 4.1 39 Reflex to dLDL 709 H 01/22/2023 09:03 SERUM 135 31 L 4.4 45 Reflex to dLDL 550 H 06/22/2022 08:29 SERUM 128 29 L 4.4 45 Reflex to dLDL 548 H 12/20/2021 09:29 SERUM 130 28 L 4.6 51 Reflex to dLDL 409 H CREATININE-EGFR 08/16/23 07:56 1.06 04/25/23 08:45 0.94 01/22/23 09:03 1.07 EGFR - NONE FOUND WEIGHT: 244 lb [110.68 kg] (10/04/2023 10:49) HEIGHT: 71 in [180.3 cm] (10/04/2023 10:49) BMI: 34.1 ___ REASON FOR VISIT: Type 2 diabetes, being treated with U500 concentrated insulin. Last wore the Bhargav 2 sensor on October 22. He reports 2 sensors fell off and he did not call the company have them replaced. Has been relying on the meter to check his glucose. We had trouble downloading the Accu-check glucose and recorded 7 days of recent blood sugars from the meter memory. Reports he was doing well with his appetite when he was taking Ozempic 0.25 mg once a week and then he went up in a month to 0.5 mg once a week. Reports the dose was dropped back down to 0.25 mg and he is starting the have the munchies again. He had these before the Ozempic was started. Reported right knee replacement surgery on October 13. Walking with a cane. Behavior health goals set at previous visit: Continue taking doses of U500 insulin and continue to wear the Bhargav sensor to check blood sugars. Clinical or Quality of Life outcome goal set at last visit: Reports he had knee replacement surgery on October 13 Diabetes Distress Support: How would you rate your overall health? Great, legs do hurt with walking. Feeling overwhelmed by the demands of diabetes? No, sometimes more related to personal issues in his life. On a scale of 1-6, how would you rate your distress with diabetes? 0 for diabetes; 6 with his adopted son. How do you deal with this stress/distress: Goes to college hockey games with a friend. NUTRITION: In [...] LABELING- BENEFITS OF WEIGHT LOSS- PHYSICAL ACTIVITY Had knee replacement surgery in September and walking with cane. Services utilized during the past year Clinic visit/primary care provider- Nutrition/dietitian- not recently. Podiatry- goes to [facility] Eye exam- May 2023, goes to [facility] Lab tests- done in July. Dental- Vaccines- had flu vaccine, has not had COVID vaccine. 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 There appear to be 2 low glucose for the last 30 days. Unable to download the meter in the office today, however, recent blood sugars were pulled off the meter memory: 11/19: 7 am- 115 7: 7 am- 173; 5 pm- 196; 8 pm- 181 11/17: 6 pm- 159 11/16: 5 am- 200; 1 pm- 179; 7 pm- 85 11/15: 8 am- 195; 8 pm- 142 11/14: 6 am- 163; 12 pm- 91 11/13: 6 am- 97; 5 pm- 110 Used the sensor during the month of June of 2023: 06/13/23- 07/10/23 Average glucose for the last [...] 20-68 mg/dl what the sensor was reading. DIABETES MEDICATIONS: U500 insulin before meals (3x/day): 85-85-75 units Sometimes he does not take a dose if his glucose is low (below 80 mg/dl) Empagliflozin 25 mg, 1 tab once a day. Metformin 500 mg, 1 tab twice a day. Semaglutide 0.25 mg once a week. ADMINISTERS VIA pen STORAGE OF INSULIN/OTHER INJECTABLES: INJECTIONS SITES: legs SITES VIEWED: No ANY EVIDENCE OF LIPOHYPERTROPHY HYPOGLYCEMIA Download of sensor reveals 1 low blood sugars in the last month. CAUSES/SYMPTOMS: none TREATMENT/PREVENTION: peaches or nectarines, peanut butter and pretzel sticks MEDIC ID/ HAS ONE: No GLUCAGON: Yes, his adopted son DRIVING SAFETY: Reviewed HYPERGLYCEMIA ASSESSMENT: Kindly referred by Dr. Velasco. Being treated with U500 insulin, in addition to Freestyle Bhargav 2 sensor. Last A1C was 7.3% in July. Destiney had 2 bad sensors and did not get a chance to have the sensor replaced. Destiney has been using his meter to check glucose. He is here to learn how to use the Bhargav 3 sensor. Gave supplies for the Bhargav 3 sensor, both the youth coordinator and sensors. No changes made to Destiney's insulin since he is doing well and once he is connected to the Bhargav 3 sensor, there will be full days of information. He is very good about scanning his sensor a majority of the time, however, there are still large blocks of time where data is missing. Destiney started using the Bhargav 3 sensor today, with no difficulties. He admits he is confused because he started the Ozempic of 0.25 mg once a week and was instructed to increase the dose to 0.5 mg once a week in a month. However, a RX was called in recently for the 0.25 mg once a week and now that the dose has decreased, he is noticing how his appetite has increased and he likes how the Ozempic had decreased his appetite and was helping him start to lose weight. Destiney scheduled to see Endocrine in November and Diabetes Education in December. Behavioral goal 1 met: 100% of the [...] Dates Covered & Assessment: 12/05/22; 04/03/23; 08/07/23; 11/20/23; Healthy Eating (Describe effect of type, amount and timing of food on blood glucose; list 3 methods for planning meals) Dates Covered & Assessment: 12/05/22; 04/03/23; 08/07/23; 11/20/23; Being Active (State effect of exercise on blood glucose levels) Dates Covered & Assessment: 12/05/22; 04/03/23; 08/07/23; 11/20/23; Taking Medication (State effect of diabetes medicines on diabetes; name diabetes medication taking, action and side effects) Dates Covered & Assessment: 12/05/22; 04/03/23; 08/07/23; 11/20/23; Monitoring Glucose (Identify recommended blood glucose targets and personal targets) Dates Covered & Assessment: 12/05/22; 04/03/23; 08/07/23; 11/20/23 (reviewed Bhargav 3); Acute Complications (List symptoms and treatment of hyper- and hypoglycemia, DKA, sick day guidelines and guidelines for severe weather or situation crisis and diabetes supply management) Dates Covered & Assessment: 12/05/22; 04/03/23; 08/07/23; 11/20/23; Chronic Complications (Define the relationship of blood glucose levels to alf complications of diabetes and screening and preventative measures) Dates Covered & Assessment: 12/05/22; 04/03/23; 08/07/23; 11/20/23; Lifestyle and Healthy Coping (Describe life style and healthy coping strategies to promote diabetes self-management) Dates Covered & Assessment: 12/05/22; 04/03/23; 08/07/23; 11/20/23; Diabetes Distress and Support (Recognize diabetes Distress and be able to identify support options) Dates Covered & Assessment: 12/05/22; 04/03/23; NC- 08/07/23; NC- 11/20/23; HEALTH GOAL #1: In order to meet this goal, I will: Start using the Bhargav 3 sensor to check glucose. HEALTH GOAL #2: In order to meet this goal, I will: Clinical or Quality of Life outcome baseline: FUTURE APPOINTMENTS: 09/04/2023 10:00 NHM/ENDOCRINE 09/05/2023 09:00 COM CARE-ORTHO SURGICAL 09/09/2023 14:00 CWM/SO/SLEEP DME/WITH EDU 10/04/2023 11:00 CWM/NO/PACT 7 DM type is : Type 2 diabetes Length of Visit: 60 minutes /skinny/ MAURO VANCE, RN,BSN, [facility] DIABETES CHOPPED STRAND OPERATOR, RN Signed: 11/20/2023 15:04 Receipt Acknowledged By: 11/21/2023 11:47 /eusebio VELASCO MD STAFF PHYSICIAN 11/20/2023 15:18 /es/ Stacey Aggarwal DNP, ACCOUNTANT CLERK-BC, CNL Primary Care Nurse Practitioner 11/20/2023 ADDENDUM STATUS: COMPLETED [place] came in September to learn how to use the Ozempic with Angélica Archuleta and he reports he was told to increase his dose of Ozempic after 1 month to 0.5 mg once a week. He reports recently the RX was updated and the dose is back down to 0.25 mg and he is hungry again. He has noticed less hunger on the 0.5 mg once a week. He would like to return to the higher dose and was tolerating it well. Please let me know you approve going back up to 0.5 mg once a week and Residential Program Worker will call with an update. Thank you. /eusebio VANCE RN,BSN, [facility] CHOPPED STRAND OPERATOR, RN Signed: 11/20/2023 15:07 Receipt Acknowledged By: 11/22/2023 16:40 /eusebio VELASCO MD STAFF PHYSICIAN 11/22/2023 ADDENDUM STATUS: COMPLETED Yes, kindly let pt know that he should take a 0.5 mg dose. After three weeks, he should reach out to have dose increased to 1 mg if tolerated. The 1 mg dose is a different pen. Thank you! /eusebio VELASCO MD STAFF PHYSICIAN Signed: 11/22/2023 16:40 Receipt Acknowledged By: 12/03/2023 11:53 /es/ MAURO VANCE, RN,BSN, [facility] DIABETES CHOPPED STRAND OPERATOR, RN 12/03/2023 ADDENDUM STATUS: COMPLETED Called [place] to make him aware that Dr. Velasco wants to increased his Ozempic dose and to call us in 1 month to check in and determine if his dose needs to increase again. Also spoke with [place] about the accuracy of his sensor since he had questions about the meter and the sensor being 50-60 mg/dl off. We discussed that checking his meter is always a good idea to confirm the sensors accuracy. /skinny/ MAURO VANCE, RN,BSN, [facility] DIABETES CHOPPED STRAND OPERATOR, RN Signed: 12/03/2023 11:55 MAURO VANCE
--- OUTSIDE RECORDS SUMMARY | 2024-05-29 10:29 | XMS_ITS | Encounter Summary ---
Author Name [facility] [place] [facility] [place] Address [address] [place] [address] Care Team Providers Care Fisheries Management Biologist Name Role Phone STACEY HORTON Primary Care Provider [facility] Insurance Providers: All historical and current Section [...] STAND YON SELF May 29, [phone] [id number] [phone] Abdullahi SEVERINO PATIENT MEDICARE (WNR) MEDICARE (M) PART B Jul 18, 2012 PART B [id number] Abdullahi SEVERINO PATIENT MEDICARE (WNR) MEDICARE (M) PART B Jul 18, 2012 PART B [id number] [id number] Abdullahi SEVERINO PATIENT MEDICARE (WNR) MEDICARE (M) PART B Jul 18, 2012 PART B [id number] [phone] Abdullahi SEVERINO PATIENT MEDICARE (WNR) MEDICARE (M) PART A Dec 19, 2011 PART A [id number] Abdullahi SEVERINO PATIENT MEDICARE (WNR) MEDICARE (M) PART A Dec 19, 2011 PART A [id number] Abdullahi SEVERINO PATIENT MEDICARE (WNR) MEDICARE (M) PART A Dec 19, 2011 PART A [id number] [phone] Abdullahi SEVERINO PATIENT Selected Encounter This section includes the information on record at [place] for the Encounter. Date/Time Encounter Type Encounter Description Reason Provider Source Sep 10, 2023 10:49 AM PRO PHONE CALL 5-10 MIN TELEPHONE PRIMARY CARE ICD-10-CM E11.9 Type 2 diabetes mellitus without complications KRISTIE LORD [facility] Encounter Template Text not used by [place] Assessments - Encounter Diagnoses This section includes the primary and secondary diagnoses documented for the Encounter. Date/Time Primary/Secondary Diagnosis Diagnosis Name Provider Source Sep 10, 2023 10:49 AM PRIMARY Type 2 diabetes mellitus without complications KRISTIE LORD [facility] [place] [facility] Sep 10, 2023 10:49 AM SECONDARY Essential (primary) hypertension RISA,BRE [facility] [place] [facility] Sep 10, 2023 10:49 AM SECONDARY Obesity, unspecified RISA,BRE [facility] [place] [facility] Plan of Treatment: Future Appointments (+ [...] - MEDICINE [place] C [facility] [place] [facility] October 04, 2023 11:00 AM AMBULATORY - MEDICINE [place] C [facility] [place] [facility] Nov 20, 2023 10:00 AM AMBULATORY - MEDICINE [facility] SARAH Dec 05, 2023 10:30 AM AMBULATORY - MEDICINE [place] C [facility] [facility] Dec 25, 2023 01:00 PM AMBULATORY - MEDICINE S[facility] SARAH Dec 26, 2023 10:45 AM AMBULATORY - NONE [place] [facility] [place] [facility] Dec 31, 2023 08:00 AM AMBULATORY - MEDICINE [place] C [facility] [place] [facility] Jan 17, 2024 08:00 AM AMBULATORY - MEDICINE [place] C [facility] [place] [facility] Feb 17, 2024 11:00 AM AMBULATORY - MEDICINE [place] [facility] [place] [facility] Mar 05, 2024 01:30 PM [facility] Lab Results: +/- 30 days of [...] Range Comment Aug 16, 2023 07:56 AM [facility] HEMOGLOBIN A1C PANEL Specimen Type: BLOOD Comment: [...] May 29, 2023 12:04 PM Reporting Lab: [facility] [address] [address] Performing Lab: [facility] [address] [address] HEMOGLOBIN A1C 7.3 H 4.0-5.6 Aug 16, 2023 07:56 AM [facility] LIPID PANEL FASTING Specimen Type: SERUM No comment entered. Ordering Provider: DEISY VELASCO Report Released Date/Time: May 29, 2023 12:04 PM Reporting Lab: [facility] [address] [address] Performing Lab: [facility] [address] [facility] [address] CHOLESTEROL 122 mg/dL TRIGLYCERIDE 399 mg/dL H 0-150 LDL calculated Reflex to dLD L mg/dL 0-129 CHOL/HDL 3.9 HDL CHOLESTEROL 31 mg/dL L 40-60 LDL DIRECT 45 mg/dL Aug 16, 2023 07:56 AM [facility] MICROALBUMIN CREATININE RATIO PANEL Specimen Type: URINE No comment entered. Ordering Provider: DEISY VELASCO Report Released Date/Time: May 29, 2023 12:04 PM Reporting Lab: [address] [address] Performing Lab: [address] [address] MICROALBUMIN/C REATININE RATIO 111.2 mg/g H 0-29.9 MICROALBUMIN,Q UANTITATIVE 9.3 mg/dL RR UNAVAIL CREATININE URINE 83.60 mg/dL Aug 16, 2023 07:56 AM [facility] BASIC METABOLIC PANEL (fasting) Specimen Type: SERUM No comment entered. Ordering Provider: DEISY VELASCO Report Released Date/Time: May 29, 2023 12:04 PM Reporting Lab: [address] [address] Performing Lab: [address] [address] UREA NITROGEN 17 mg/dL 7-25 GLUCOSE 162 [...] took place. Date/Time Current Smoking Status Comment [facility] Apr 05, 2023 11:30 AM VA-TOBACCO FORMER USER [place] [facility] [place] [facility] Tobacco Use History This section includes a history of the smoking, or tobacco-related health factors, that were collected on or before the date of the Encounter. The data comes from the [place] facility where the Encounter took place. Date/Time Smoking Status/Tobac co Use Comment Facility Apr 05, 2023 11:30 AM VA-TOBACCO QUIT 15 YRS OR MORE [place] [facility] [place] [facility] Dec 28, 2021 09:30 AM VA-TOBACCO FORMER USER [facility] [place] [facility] Dec 28, 2021 09:30 AM VA-TOBACCO QUIT 15 YRS OR MORE [place] [facility] [place] [facility] Dec 02, 2020 09:00 AM VA-TOBACCO FORMER USER [facility] [place] [facility] Dec 02, 2020 09:00 AM VA-TOBACCO QUIT 15 YRS OR MORE [place] [facility] [place] [facility] Aug 18, 2019 03:19 PM VA-TOBACCO FORMER USER [facility] [place] [facility] Aug 18, 2019 03:19 PM VA-TOBACCO QUIT 15 YRS OR MORE [place] [facility] [place] [facility] September 23, 2018 09:58 AM VA-TOBACCO FORMER USER [facility] [place] [facility] September 23, 2018 09:58 AM VA-TOBACCO QUIT 15 YRS OR MORE [place] [facility] [place] [facility] September 30, 2017 09:20 AM QUIT TOBACCO USE > 7 YEARS AGO [facility] [place] [facility] Aug 20, 2016 09:17 AM QUIT TOBACCO USE > 7 YEARS AGO quit 1991 [place] [facility] [place] [facility] Jun 27, 2016 09:45 AM CURRENT SMOKER Quit 25 years ago [place] [facility] [place] [facility] Apr 18, 2015 09:06 AM QUIT TOBACCO USE > 7 YEARS AGO quit in 1991 [place] [facility] [place] [facility] Mar 21, 2005 10:12 AM HISTORY OF SMOKING [place] [facility] [place] [facility] Mar 21, 2005 10:12 AM QUIT TOBACCO USE > 7 YEARS AGO [place] [facility] [place] [facility] Advance Directives: All historical and current [...] Feb 04, 2019 ADVANCE DIRECTIVE CESAR LUA [place] [facility] Encounter Notes: All associated encounter notes This section contains the clinical notes associated to the Encounter. Date/Time Encounter Note(s) Provider Source Sep 10, 2023 11:15 AM CARE COORDINATION HOME TELEHEALTH E & M NOTE: LOCAL TITLE: CONTINUUM OF CARE NOTE STANDARD TITLE: CARE COORDINATION HOME TELEHEALTH E & M NOTE DATE OF NOTE: SEP 10, 2023@11:15 ENTRY DATE: SEP 10, 2023@11:15:19 AUTHOR: TOÑO LORD EXP COSIGNER: URGENCY: STATUS: COMPLETED HOME TELEHEALTH CONTINUUM OF CARE - Follow-up assessment 'S LIVING SITUATION: Nardin lives with: Step daughter and adopted grandson Nardin lives in a private home or apartment. PRIMARY (UNPAID) CAREGIVER INFORMATION: No unpaid caregiver: there is no one on whom the relies on for any type of support. BASIC ACTIVITIES OF DAILY LIVING: In the last 7 days, has the Nardin required help or supervision with the following activities? Bathing (tub bath, shower, or sponge) - No Dressing (lower and upper body) - No Eating (taking food by any method, including tube feedings) - No Using the toilet (or urinal/bedpan, cleaning self) - No Moving around in bed (turning, to/from sitting, repositioning) - No Transfers (from bed, chair, wheelchair) - Yes Cane Moving around indoors (even with cane, walker, or scooter) - Yes Cane INSTRUMENTAL ACTIVITES OF DAILY LIVING: In the last 7 days, has the expressed difficulty with the following activities? Preparing meals (planning, cooking, setting out food/utensils) - Yes Comment: neighbor upstairs makes meals occasionally 's meals were prepared by others. Alex-neighbor Performing housework - Yes Shopping (selecting items, managing money) - Yes Transportation (getting to places beyond walking distance by any mode) - No Using the telephone (receiving or making calls with or without assistive devices) - No Managing medications (remembering to take meds, opening bottles, taking correct dosages at correct times) - No Managing own finances (maintaining a checkbook, paying own routine bills) - No BEHAVIORS AND SYMPTOMS THAT HAVE BEEN PRESENT OR WOULD LIKELY MANIFEST IN THE ABSENCE OF CARE COORDINATION SERVICES: Wandering - No Verbally abusive behavior - No Physically abusive behavior - No Hallucinations - No Delusions - No Substance abuse or dependence - No Depression - No Yaz - No PTSD or other severe anxiety disorder - Yes Resisting care - No COGNITIVE STATUS: In the last 7 days (or would likely manifest in the absence of continued HT services) did the have difficulty making decisions that are reasonable about organizing the day, such as when to get up, what meals to have or what clothes to wear? No In the last 7 days (or would likely manifest in the absence of continued HT services) has the Nardin been unable to make himself/herself understood? No In the last 90 days, has the become so agitated or disoriented that his/her safety was endangered or he/she required protection by others as a result? No PROGNOSIS: The has NOT had a recent (2-3 month) change in his/her level of functioning. The has not experienced a flare-up of a recurrent or chronic health problem in the last 7 days. The direct care staff does NOT think the Nardin is capable of increased independence in ADLs, IADLs and/or mobility. The does NOT have a limited life expectancy of 6-12 months. NON-INSTITUTIONAL CARE/CHRONIC CARE MANAGEMENT SCORING SUMMARY: meets LAVON Criteria. Nardin meets Category A LAVON criteria. has one or more behaviors and/or cognitive problems (Sections E and F). The complexity of 's care needs is greater than Home Telehealth services alone can provide. Community Podiatry/Optometry Referral is not recommended. Services already in place? Yes TYPE OF ENCOUNTER: Telephone Length of call: 5-10 minutes /skinny/ TOÑO LORD RN RPM-Home Telehealth Ramp Manager Signed: 09/10/2023 11:24 Receipt Acknowledged By: 09/10/2023 11:26 /skinny/ ALEJO ALVAREZ, MS,PA-C PHYSICIAN SLURRY MIXER for STACEY Kcoh CLIFFORD MURDOCKDENNISETOÑO [place] [facility] [place] [facility] Sep 10, 2023 10:49 AM CARE COORDINATION HOME TELEHEALTH REPORT: LOCAL TITLE: HT PERIODIC EVALUATION NOTE STANDARD TITLE: CARE COORDINATION HOME TELEHEALTH REPORT DATE OF NOTE: SEP 10, 2023@10:49 ENTRY DATE: SEP 10, 2023@10:49:42 AUTHOR: TOÑO LORD EXP COSIGNER: URGENCY: STATUS: COMPLETED HOME TELEHEALTH (HT) PERIODIC EVALUATION NOTE Provider: This information is sent for your review and any further recommendations in regards to the HT Plan of Care. 08/07/2022 Ht Enrollment-Start Date 08/07/2022 Ht Clinical Reason For Enrollment DM,HTN 'S CURRENT HT CATEGORY OF CARE: Non-Institutional [facility]dc Monitoring technology assigned: In Home Messaging Device (IHMD) Vendor: [employer] Connection via: [employer] Peripheral Device(s): Blood pressure Monitor with pulse Entry: Bluetooth Digital Scale Entry: Bluetooth Non-pharmacy provided Blood Glucose Meter Entry: Cabled SUMMARY SINCE LAST REVIEW: MMMMMMMM HEALTH STATUS and REVIEW OF SYSTEMS: ROS Is the Nardin on Oxygen? No PROGRESS TOWARDS GOAL(S): requests to continue with the RPM-HT monitoring program at this time. states that he has gained some weight and would like to continue with the program to help him stay on track. Nardin states he recently saw Cardroom Drawing Runner who has reccomended adding weight management and the tele move program.Nardin expressed that he is anxious to begin the Weight management program since he has gained some weight. is planning to have knee surgery in September 2023 and has been working to get his HGB A1c lowered from 7.2 to 7.0. Nardin reports a fall about 2 months ago. Nardin fell on the sidewalk injuring his right shoulder. Currently reports increased intermittent pain. Recently working with OT. HEALTH STATUS and REVIEW OF SYSTEMS: Active problems - Computerized Problem List is the source for the followin. Exposure to potentially hazardous substance ([facility] [id number]) 2. Knee pain 3. Diabetes mellitus type 2 4. 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 Cancer screening follow up 6. Anxiety 7. Eating disorder 8. Obstructive sleep apnea syndrome 9. Arteriosclerotic heart disease 10. Obesity (SNOMED CT 807680487) 11. Hyperlipidemia (SNOMED CT 75295202) 12. Benign essential hypertension (SNOMED CT 1763253) 13. Venous Insufficiency REVIEW OF SYSTEMS Constitutional: Denies: Fever, Chills, Rigors, Sweats, Malaise, Anorexia, Weight change Reports: Ears, nose, mouth, throat: Denies: Ear pain, Sinus pain, Sinus congestion, Sinus drainage, Post nasal drip, Throat pain, Difficulty swallowing, Hoarseness, Trismus, Tooth pain Reports: Hearing change, Tinnitus Comments: LOWER [place] Eyes: Denies: Vision loss, Diplopia, Photophobia, Discharge, Eye pain, Floaters, [place] Respiratory: Denies: Wheezing, Pleuritic pain, Dry cough, Productive cough, Hemoptysis, Stridor Reports: Shortness of breath Cardiovascular: Denies: Chest pain/pressure, Orthopnea, Palpitations, Racing heart, Lower extremity swelling, Diaphoresis Gastrointestinal: Denies: Abdominal pain, Flank pain, Nausea, Vomiting, Melena, BRBPR, Change in bowel habits, Loose stool Genitourinary: Denies: Dysuria, Hematuria, Frequency , Nocturia, Hesitancy Musculoskeletal: Denies: Neck pain/stiffness, Back pain, Joint pain/swelling, Calf pain Reports: Muscle aches, Recent trauma Comments: [address] Neurologic: Denies: Vertigo, Syncope, Near syncope, Headaches, Paresthesia, Unilateral weakness, Balance change Reports: Psychiatric: Denies: Depression, Anxiety, Hallucinations, Paranoia, Change in sleep, Appetite change, Memory loss, Poor concentration, Ruminating thoughts, Excessive guilt Skin: Denies: Rash, Skin lesions, Jaundice, Discharge, Ulcerations, Hair/nail changes Endocrine: Denies: Polydipsia, Polyuria, Polyphasia, Frequent infections, Slow healing wounds Lymphatic: Denies: Lymphadenopathy, Lymphangitis Hematologic: Denies: Easy bruising, Prolonged bleeding, Petechiae Is the on Oxygen? No PROGRESS TOWARDS GOAL(S): recent averages: Summary Weight Sys BP Krishnamurthy BP Heart Rate Glucose Pain High 174 85 77 222 3 Low 132 51 44 79 3 Average 151 70 56 139 3.0 HEMOGLOBIN A1C TREND Collection DT Spec HGBA1c 08/16/2023 07:56 BLOOD 7.3 H 04/25/2023 08:45 BLOOD 6.7 H 01/22/2023 09:03 BLOOD 8.0 H 10/18/2022 10:16 BLOOD 7.7 H 06/22/2022 08:29 BLOOD 8.4 H participates in [facility]-HT program average of 95%. UPDATE OF GOALS AND CARE COORDINATION INTERVENTION PLAN: Nardin to learn self management of Weight/HTN/DM with completing Health checks 5-7 times per week Nardin to continue with low sodium/consistant carb diet. Sodium intake <1500 mg/day. Make healthy meal/snack choices. to maintain adequate hydration to monitor carbohydrates and maintain 45 gms carb at each meal and 15 gm per snack Nardin will call for all emergencies Nardin will contact Pact or HT CC with non urgent questions/concerns Active prescriptions : Active Outpatient Medications (including Supplies): Active Outpatient Medications Status 1) ACCU-CHEK [...] CAPSULES HOLD BY MOUTH TWICE DAILY 6) GLUCOSE SENSOR FREESTYLE VARUN 2 USE 1 SENSOR ACTIVE DIRECTED EVERY 14 DAYS 7) HYDROCHLOROTHIAZIDE 25MG TAB TAKE ONE TABLET BY MOUTH ACTIVE ONCE DAILY FOR HIGH BLOOD PRESSURE 8) INSULIN CONC REG HUM 500 UNT/ML KWIKPEN INJECT ACTIVE DIRECTED SUBCUTANEOUSLY THREE TIMES A DAY 90 UNITS BREAKFAST, 75 UNITS LUNCH, AND 75 UNITS DINNER. 9) METFORMIN HCL 500MG TAB TAKE ONE TABLET BY MOUTH ACTIVE TWICE DAILY FOR DIABETES 10) METOPROLOL SUCCINATE 25MG SA TAB TAKE ONE TABLET BY ACTIVE MOUTH ONCE DAILY FOR HIGH BLOOD PRESSURE 11) SEMAGLUTIDE 0.25MG/0.375ML INJ PEN 3ML INJECT 0.25MG ACTIVE SUBCUTANEOUSLY ONCE A WEEK Active Non-VA Medications Status 1) Non-VA AMLODIPINE BESYLATE 5MG TAB 5MG BY MOUTH ONCE ACTIVE DAILY 2) Non-VA ASPIRIN 81MG EC TAB 81MG BY MOUTH ONCE DAILY ACTIVE 13 Total Medications The gets prescriptions from outside providers. Prescriptions are not only processed at the [place] pharmacy. Is the taking other medications including over the counter medications? Yes These medications are listed in the Non-VA medications list in CPRS. /caregiver has a current list of active medications. The Nardin and/or caregiver does not have questions about medications. MEDICATION INTERVENTIONS: Reviewed current list of medications, educated as needed HEALTH EDUCATION Education provided: Disease management/self-help Level of Understanding: Fair Weight Management/DM/HTN In-home monitoring Level of Understanding: Good Addition of Weight Management monitoring/new blue tooth scale Written materials given: Will arrange for Telemove book to be sent to Response to instruction: Nardin verbalizes understanding (states essential concepts) Plan/Education follow-up: No follow-up indicated/planned at this time EMERGENCY MANAGEMENT (DUE TO ENVIRONMENTALLY-RELATED OR TECHNOLOGY -RELATED EMERGENCIES) - PATIENT CLASSSIFICATION/PRIORITY LEVEL: Level 3 (Low Priority) - Can go 7-14 days without HT intervention A. Veterans that have physical, emotional and local resources and are able to access them. B. Veterans who have caregivers that are not cognitively/physically impaired. C. Veterans who have friends and/or family able to assist with accessing resources. Disaster Plan discussed with Nardin/Caregiver reports he has food/water/medications/suppli es available during an emergency TYPE OF ENCOUNTER: Telephone Length of call: 46-60 minutes /skinny/ TOÑO LORD RN [facility]-Home Telehealth Ramp Manager Signed: 09/10/2023 11:12 Receipt Acknowledged By: 09/11/2023 07:54 /es/ DEISY VELASCO MD STAFF PHYSICIAN 09/10/2023 11:25 /es/ ALEJO ALVAREZ, MS,PA-C PHYSICIAN SLURRY MIXER for [facility] TREJO [facility]
--- OUTSIDE RECORDS SUMMARY | 2024-05-29 10:29 | XMS_ITS | Encounter Summary ---
Author Name [facility] [place] Address [address] [place] [address] Care Team Providers Care Bookmaker'S Clerk Name Role Phone STACEY HORTON [facility] Insurance Providers: All historical and [...] STAND YON SELF May 29, [phone] [id number] Abdullahi SEVERINO PATIENT MEDICARE (WNR) MEDICARE (M) PART B Jul 18, 2012 PART B [id number] Abdullahi SEVERINO PATIENT MEDICARE (WNR) MEDICARE (M) PART B Jul 18, 2012 PART B [id number] Abdullahi SEVERINO PATIENT MEDICARE (WNR) MEDICARE (M) PART B Jul 18, 2012 PART B [id number] Abdullahi SEVERINO PATIENT MEDICARE (WNR) MEDICARE (M) PART A Dec 19, 2011 PART A [id number] 96A Abdullahi SEVERINO PATIENT MEDICARE (WNR) MEDICARE (M) PART A Dec 19, 2011 PART A [id number] Abdullahi SEVERINO PATIENT MEDICARE (WNR) MEDICARE (M) PART A Dec 19, 2011 PART A [id number] Abdullahi SEVERINO PATIENT Selected Encounter This section includes the information on record at [place] for the Encounter. Date/Time Encounter Type Encounter Description Reason Pro vider Source Oct 21, 2023 10:44 AM Outpatient Encounter ADMIN PAT ACTIVTIES (MASNONCT) IHE Encounter Template Text not used by [place] Plan of Treatment: Future Appointments (+ 6 months) and Future Tests (+/- 45 days) The Plan of Treatment section includes future care activities for the patient from all [place] treatmentfacilities. This section includes future appointments and future orders which are active, pending or scheduled. Future Appointments This section includes appointments that were scheduled to occur 6 months from the date of the Encounter, up to a maximum of 20 appointments. The data comes from all [place] treatment facilities. Appointment Date/Time Appointment Type Appointme nt Facility Name Nov 20, 2023 10:00 AM AMBULATORY [facility] MEDICINE [facility] Dec 05, 2023 10:30 AM AM[facility]UL[facility]ORY [place]ICINE [facility] [place] [facility] Dec 25, 2023 01:00 PM AMBULATORY [facility] MEDICINE [facility] Dec 26, 2023 10:45 AM AMBULATORY - NONE [facility] [place] [facility] Dec 31, 2023 08:00 AM AMBULATORY - MEDICINE [facility] [place] [facility] Jan 17, 2024 08:00 AM AMBULATORY - MEDICINE [facility] [place] [facility] Feb 17, 2024 11:00 AM AMBULATORY - MEDICINE [facility] [place] [facility] Mar 05, 2024 01:30 PM AMBULATORY - MEDICINE [facility] [place] [facility] Mar 25, 2024 01:00 PM AMBULATORY - MEDICINE [facility] Apr 06, 2024 10:00 AM AMBULATORY - MEDICINE [place] [facility] [place] [facility] Social History: Smoking Status (Most current) and Tobacco Use (All prior to encounter date) This section includes the most current, and the historical, smoking and tobacco- related health factors from the [place] facility where the Encounter took place. Current Smoking Status This section includes the most current smoking, or tobacco-related health factor, from the [place] facility where the Encounter took place. Date/Time Current Smoking Status Comment [facility] Apr 05, 2023 11:30 AM VA-TOBACCO FORMER USER [place] [facility] [place] [facility] Tobacco Use History This section includes a history of the smoking, or tobacco-related health factors, that were collected on or before the date of the Encounter. The data comes from the [place] facility where the Encounter took place. Date/Time Smoking Status/Tobac co Use Comment Facility Apr 05, 2023 11:30 AM VA-TOBACCO QUIT 15 YRS OR MORE [place] [facility] [place] [facility] Dec 28, 2021 09:30 AM VA-TOBACCO FORMER USER [place] [facility] [place] [facility] Dec 28, 2021 09:30 AM VA-TOBACCO QUIT 15 YRS OR MORE [place] [facility] [place] [facility] Dec 02, 2020 09:00 AM VA-TOBACCO FORMER USER [place] [facility] [place] [facility] Dec 02, 2020 09:00 AM VA-TOBACCO QUIT 15 YRS OR MORE [place] [facility] [place] [facility] Aug 18, 2019 03:19 PM VA-TOBACCO FORMER USER [place] [facility] [place] [facility] Aug 18, 2019 03:19 PM VA-TOBACCO QUIT 15 YRS OR MORE [place] [facility] [place] [facility] September 23, 2018 09:58 AM VA-TOBACCO FORMER USER [place] [facility] [place] [facility] September 23, 2018 09:58 AM VA-TOBACCO QUIT 15 YRS OR MORE [facility] [place] [facility] September 30, 2017 09:20 AM QUIT TOBACCO USE > 7 YEARS AGO [facility] [place] [facility] Aug 20, 2016 09:17 AM QUIT TOBACCO USE > 7 YEARS AGO quit 1991 [place] [facility] [place] [facility] Jun 27, 2016 09:45 AM CURRENT SMOKER Quit 25 years ago [place] [facility] [place] [facility] Apr 18, 2015 09:06 AM QUIT TOBACCO USE > 7 YEARS AGO quit in 1991 [facility] Mar 21, 2005 10:12 AM HISTORY OF SMOKING [facility] Mar 21, 2005 10:12 AM QUIT TOBACCO USE > 7 YEARS AGO [facility] Advance Directives: All historical and current Section Date Range: From patient's date of to the date document was created. This section includes ALL of a patient's completed or amended [place] Advance and Rescinded Directives. The entries below indicate that a directive exists for the patient, but an actual copy is not included with this document. The data comes from all [place] facilities. Date Advance Directives Provider Source Feb 04, 2019 ADVANCE DIRECTIVE CESAR LUA [facility] Encounter Notes: All associated encounter notes This section contains the clinical notes associated to the Encounter. Date/Time Encounter Note(s) Provider Source Oct 21, 2023 10:44 AM CARE COORDINATION HOME TELEHEALTH NOTE: LOCAL TITLE: HT NOTE STANDARD TITLE: CARE COORDINATION HOME TELEHEALTH NOTE DATE OF NOTE: OCT 21, 2023@10:44 ENTRY DATE: OCT 21, 2023@10:44:33 AUTHOR: WANDY SETHI EXP COSIGNER: URGENCY: STATUS: COMPLETED HT NOTE Has ADDENDA Type of Telephone Encounter: Health Cargo Mate called /caregiver Olar is actively enrolled with the Home Telehealth Program and is being monitored with an in-home messaging device. The following identifiers were used to verify this patient: Phone number, name, and SSN. Problem/Issue Reported: has not used his Home Telehealth equipment for the past 4 days Intervention: Spoke with Olar who will send over readings,but is unable to stand on scale due to knee surgery last week. Instruction/Education: continue to monitor Follow-up: (Call time 5-10 min) Olar will continue to be monitor by Classification Control Clerk. /skinny/ WANDY SETHI [facility] [employer] Signed: 10/21/2023 10:45 Receipt Acknowledged By: 10/21/2023 11:36 /skinny/ TOÑO LORD RN [facility]-Home Telehealth Classification Control Clerk 10/21/2023 ADDENDUM STATUS: COMPLETED Will place requests for weight measurement through [employer] [facility] on hold until [facility] is able to resume weight checks. S/P knee replacement recent. /es/ TOÑO LORD RN [facility]-Home Telehealth Classification Control Clerk Signed: 10/21/2023 11:40 WANDY SETHIRL [facility]
--- OUTSIDE RECORDS SUMMARY | 2024-05-29 10:29 | XMS_ITS | Encounter Summary ---
Author Name [facility] [place] Address [address] [place] [address] Care Team Providers Care Machine Icer Name Role Phone STACEY HORTON Primary Care [...] STAND YON SELF May 29, 2001 104 [id number] [phone] Abdullahi SEVERINO PATIENT MEDICARE (WNR) MEDICARE (M) PART B Jul 18, 2012 PART B [id number] Abdullahi SEVERINO PATIENT MEDICARE (WNR) MEDICARE (M) PART B Jul 18, 2012 PART B [id number] 96A Abdullahi SEVERINO PATIENT MEDICARE (WNR) MEDICARE (M) PART B Jul 18, 2012 PART B [id number] [phone] Abdullahi SEVERINO PATIENT MEDICARE (WNR) MEDICARE (M) PART A Dec 19, 2011 PART A [id number] [phone] Abdullahi SEVERINO PATIENT MEDICARE (WNR) MEDICARE (M) PART A Dec 19, 2011 PART A [id number] 96A Abdullahi SEVERINO PATIENT MEDICARE (WNR) MEDICARE (M) PART A Dec 19, 2011 PART A [id number] 96A Abdullahi SEVERINO PATIENT Selected Encounter This section includes the information on record at [place] for the Encounter. Date/Time Encounter Type Encounter Description Reason Pro vider Source October 09, 2023 12:00 PM Outpatient Encounter COMMUNITY CARE CONSULT IHE Encounter Template Text not used by [place] Plan of Treatment: Future Appointments (+ 6 [...] - MEDICINE [place] [facility] [facility] Dec 25, 2023 01:00 PM AM[facility]ULATORY - [facility]ICINE [facility] Dec 26, 2023 10:45 AM AMBULATORY - NONE [place] [facility] [place] [facility] Dec 31, 2023 08:00 AM AMBULATORY - MEDICINE [place] [facility] [facility] Jan 17, 2024 08:00 AM AMBULATORY - MEDICINE [place] [facility] [facility] Feb 17, 2024 11:00 AM AMBULATORY - MEDICINE [place] [facility] [facility] Mar 05, 2024 01:30 PM AMBULATORY - MEDICINE [place] [facility] [place] [facility] Mar 25, 2024 01:00 PM AM[facility]ULATORY - MEDICINE [facility] Apr 06, 2024 10:00 AM AMBULATORY - MEDICINE [place] [facility] [facility] Social History: Smoking Status (Most current) [...] took place. Date/Time Current Smoking Status Comment [facility] Apr 05, 2023 11:30 AM VA-TOBACCO FORMER USER [place] [facility] [place] [facility] Tobacco Use History This section includes a history of the smoking, or tobacco-related health factors, that were collected on or before the date of the Encounter. The data comes from the [place] facility where the Encounter took place. Date/Time Smoking Status/Tobac co Use Comment Facility Apr 05, 2023 11:30 AM VA-TOBACCO QUIT 15 YRS OR MORE [facility] [place] [facility] Dec 28, 2021 09:30 AM VA-TOBACCO FORMER USER [place] [facility] [place] [facility] Dec 28, 2021 09:30 AM VA-TOBACCO QUIT 15 YRS OR MORE [place] [facility] [place] [facility] Dec 02, 2020 09:00 AM VA-TOBACCO FORMER USER [place] [facility] [place] [facility] Dec 02, 2020 09:00 AM VA-TOBACCO QUIT 15 YRS OR MORE [place] [facility] [place] [facility] Aug 18, 2019 03:19 PM VA-TOBACCO FORMER USER [place] [facility] [place] [facility] Aug 18, 2019 03:19 PM VA-TOBACCO QUIT 15 YRS OR MORE [place] [facility] [place] [facility] September 23, 2018 09:58 AM VA-TOBACCO FORMER USER [facility] [place] [facility] September 23, 2018 09:58 AM VA-TOBACCO QUIT 15 YRS OR MORE [place] [facility] [place] [facility] September 30, 2017 09:20 AM QUIT TOBACCO USE > 7 YEARS AGO [place] [facility] [place] [facility] Aug 20, 2016 09:17 AM QUIT TOBACCO USE > 7 YEARS AGO quit 1991 [place] [facility] [place] [facility] Jun 27, 2016 09:45 AM CURRENT SMOKER Quit 25 years ago [place] [facility] [place] [facility] Apr 18, 2015 09:06 AM QUIT TOBACCO USE > 7 YEARS AGO quit in 1991 [place] [facility] [place] [facility] Mar 21, 2005 10:12 AM HISTORY OF SMOKING [facility] Mar 21, 2005 10:12 AM QUIT TOBACCO USE > 7 YEARS AGO [facility] Advance Directives: All historical and current [...] Feb 04, 2019 ADVANCE DIRECTIVE CESAR LUA [facility] Encounter Notes: All associated encounter notes This section contains the clinical notes associated to the Encounter. Date/Time Encounter Note(s) Provider Source October 09, 2023 12:00 PM NONVA CONSULT: LOCAL TITLE: COMMUNITY CARE-CONSULT RESULT NOTE STANDARD TITLE: NONVA CONSULT DATE OF NOTE: OCTOBER 09, 2023@12:00 ENTRY DATE: OCT 25, 2023@11:40:47 AUTHOR: JOSE CASTRO EXP COSIGNER: URGENCY: STATUS: COMPLETED VistA Imaging - Scanned Document SCANNED DOCUMENT SIGNATURE NOT REQUIRED Electronically Filed: 10/25/2023 by: JOSE CASTRO MEDIA RELATIONS MANAGER JOSE CASTRO [facility]
--- OUTSIDE RECORDS SUMMARY | 2024-05-29 10:29 | XMS_ITS | Encounter Summary ---
Author Name [facility] [place] Address [address] [place] [address] Care Team Providers Care Technical Support Intern Name Role Phone STACEY HORTON Primary Care [...] STAND YON SELF May 29, [phone] [id number] Abdullahi SEVERINO PATIENT MEDICARE (WNR) MEDICARE (M) PART B Jul 18, 2012 PART B [id number] 96A Abdullahi SEVERINO PATIENT MEDICARE (WNR) MEDICARE (M) PART B Jul 18, 2012 PART B [id number] [phone] Abdullahi SEVERINO PATIENT MEDICARE (WNR) MEDICARE (M) PART B Jul 18, 2012 PART B [id number] 96A Abdullahi SEVERINO PATIENT MEDICARE (WNR) MEDICARE (M) PART A Dec 19, 2011 PART A [id number] 96A Abdullahi SEVERINO PATIENT MEDICARE (WNR) MEDICARE (M) PART A Dec 19, 2011 PART A [id number] Abdullahi SEVERINO PATIENT MEDICARE (WNR) MEDICARE (M) PART A Dec 19, 2011 PART A [id number] 96A Abdullahi SEVERINO PATIENT Selected Encounter This section includes the information on record at [place] for the Encounter. Date/Time Encounter Type Encounter Description Reason Provider Source Nov 15, 2023 04:08 PM QNHP OL DIG ASSMT&MGMT 5-10 CLINICAL PHARMACY ICD-10-CM E11.9 Type 2 diabetes mellitus without complications COLLEEN ANDERSEN Afshin Encounter Template Text not used by [place] Assessments - Encounter Diagnoses This section includes the primary and secondary diagnoses documented for the Encounter. Date/Time Primary/Secondary Diagnosis Diagnosis Name Provider Source Nov 15, 2023 04:13 PM PRIMARY Type 2 diabetes mellitus without complications COLLEEN ANDERSEN [facility] ([id number]) Plan of Treatment: Future Appointments (+ 6 [...] - MEDICINE [facility] [place] [facility] Dec 25, 2023 01:00 PM [facility] Dec 26, 2023 10:45 AM AMBULATORY - NONE [facility] [place] [facility] Dec 31, 2023 08:00 AM AMBULATORY - MEDICINE [facility] [place] [facility] Jan 17, 2024 08:00 AM AMBULATORY - MEDICINE [facility] [place] [facility] Feb 17, 2024 11:00 AM AMBULATORY - MEDICINE [facility] [place] [facility] Mar 05, 2024 01:30 PM AMBULATORY - MEDICINE [facility] Mar 25, 2024 01:00 PM AMBULATORY - MEDICINE [facility] Apr 06, 2024 10:00 AM AMBULATORY - MEDICINE [facility] Apr 23, 2024 10:45 AM [facility] Apr 29, 2024 10:00 AM [facility] Active, Pending, and Scheduled Orders This [...] PM Consult Order COMMUNITY CARE-PHYSICAL THERAPY Cons Occupational Therapy Director's Choice [facility] Lab Results: +/- 30 days of the [...] Range Comment Dec 05, 2023 10:58 AM [facility] HEMOGLOBIN A1C PANEL Specimen Type: BLOOD Comment: [...] Sep 04, 2023 12:58 PM Reporting Lab: [address] [id number] Performing Lab: [address] [address] HEMOGLOBIN A1C 6.0 H 4.0-5.6 Dec 05, 2023 10:58 AM [facility] BASIC METABOLIC PANEL (non-fasting) Specimen Type: SERUM No comment entered. Ordering Provider: DEISY VELASCO Released Date/Time: Sep 04, 2023 12:58 PM Reporting Lab: [facility] [address] [facility] [address] Performing Lab: [facility] [address] [facility] [address] UREA NITROGEN 19 mg/dL 7-25 GLUCOSE 147 [...] Feb 04, 2019 ADVANCE DIRECTIVE CESAR LUA [facility] Encounter Notes: All associated encounter notes This section contains the clinical notes associated to the Encounter. Date/Time Encounter Note(s) Provider Source Nov 15, 2023 04:08 PM MEDICATION MGT CON SULT: LOCAL TITLE: CONSULT REPORT/NON FORMULARY PADR STANDARD TITLE: MEDICATION MGT CONSULT DATE OF NOTE: NOV 15, 2023@16:08 ENTRY DATE: NOV 15, 2023@16:08:21 AUTHOR: COLLEEN ANDERSEN EXP COSIGNER: URGENCY: STATUS: COMPLETED The medical record has been reviewed with regard to this restricted drug request. Medication requested: GLUCOSE SENSOR FREESTYLE BHARGAV 3 Medication indication: T2DM Medical history relevant to this request: ------ HEMOGLOBIN A1C ---- BLOOD Aug 15 Apr 25 Jan 22 Oct 18 Reference 2023 2022 2022 2022 07:56 08:45 09:03 10:16 Units Ranges HGB-A1c 7.3 H 6.7 H 8.0 H 7.7 H % 4 - 5.6 -- Meds: Active Outpatient Medications (including Supplies): Active Outpatient Medications Status EMPAGLIFLOZIN 25MG TAB TAKE ONE TABLET BY MOUTH ONCE ACTIVE DAILY FOR DIABETES GLUCOSE SENSOR FREESTYLE BHARGAV 2 USE 1 SENSOR ACTIVE DIRECTED EVERY 14 DAYS INSULIN CONC REG HUM 500 UNT/ML KWIKPEN INJECT ACTIVE DIRECTED SUBCUTANEOUSLY THREE TIMES A DAY 90 UNITS BREAKFAST, 75 UNITS LUNCH, AND 75 UNITS DINNER. METFORMIN HCL 500MG TAB TAKE ONE TABLET BY MOUTH ACTIVE TWICE DAILY FOR DIABETES SEMAGLUTIDE 0.25MG/0.375ML INJ PEN 3ML INJECT 0.25MG ACTIVE SUBCUTANEOUSLY ONCE A WEEK 11/20/2023 10:00 CWM/SO/DIABETES EDU1 12/05/2023 10:30 NHM/ENDOCRINE 04/06/2024 10:00 CWM/NO/PACT 7 The request is approved - The patient previously responded to a non-formulary or non-preferred agent and serious risk is associated with a change the preferred formulary alternative(s): was approved for Bhargav 2 Time spent: 5 min /skinny/ JOANIE DAND CLINICAL PERSONAL LINES ADVISOR Signed: 11/15/2023 16:13 COLLEEN ANDERSEN [facility] ([id number])
--- OUTSIDE RECORDS SUMMARY | 2024-05-29 10:29 | XMS_ITS | Encounter Summary ---
Author Name [facility] [place] [facility] [place] Address [address] [place] [id number] Care Team Providers Care Business Intelligence Director Name Role Phone STACEY HORTON Primary Care [...] STAND YON SELF May 29, [phone] [id number] Abdullahi SEVERINO PATIENT MEDICARE (WNR) MEDICARE (M) PART B Jul 18, 2012 PART B [id number] Abdullahi SEVERINO PATIENT MEDICARE (WNR) MEDICARE (M) PART B Jul 18, 2012 PART B [id number] [phone] Abdullahi SEVERINO PATIENT MEDICARE (WNR) MEDICARE (M) PART B Jul 18, 2012 PART B [id number] [phone] Abdullahi SEVERINO PATIENT MEDICARE (WNR) MEDICARE (M) PART A Dec 19, 2011 PART A [id number] Abdullahi SEVERINO PATIENT MEDICARE (WNR) MEDICARE (M) PART A Dec 19, 2011 PART A [id number] 96A Abdullahi SEVERINO PATIENT MEDICARE (WNR) MEDICARE (M) PART A Dec 19, 2011 PART A [id number] 96A Abdullahi SEVERINO PATIENT Selected Encounter This section includes the information on record at [place] for the Encounter. Date/Time Encounter Type Encounter Description Reason Pro vider Source IHE Encounter Template Text not used by [place] Advance Directives: All historical and current Section Date Range: From patient's date of to the date document was created. This section includes ALL of a patient's completed or amended [place] Advance and Rescinded Directives. The entries below indicate that a directive exists for the patient, but an actual copy is not included with this document. The data comes from all [place] facilities. Date Advance Directives Provider Source Feb 04, 2019 ADVANCE DIRECTIVE CESAR LUA [place] [facility]
--- OUTSIDE RECORDS SUMMARY | 2024-05-29 10:29 | XMS_ITS | Encounter Summary ---
Author Name [facility] [place] Organization [place] Address [address] [place] [address] Care Team Providers Care Library Science Professor Name Role Phone STACEY HORTON Primary Care [...] STAND YON SELF May 29, [phone] [id number] Abdullahi SEVERINO PATIENT MEDICARE (WNR) MEDICARE (M) PART B Jul 18, 2012 PART B [id number] Abdullahi SEVERINO PATIENT MEDICARE (WNR) MEDICARE (M) PART B Jul 18, 2012 PART B [id number] [phone] Abdullahi SEVERINO PATIENT MEDICARE (WNR) MEDICARE (M) PART B Jul 18, 2012 PART B [id number] Abdullahi SEVERINO PATIENT MEDICARE (WNR) MEDICARE (M) PART A Dec 19, 2011 PART A [id number] Abdullahi SEVERINO PATIENT MEDICARE (WNR) MEDICARE (M) PART A Dec 19, 2011 PART A [id number] Abdullahi SEVERINO PATIENT MEDICARE (WNR) MEDICARE (M) PART A Dec 19, 2011 PART A [id number] Abdullahi SEVERINO PATIENT Selected Encounter This section includes the information on record at [place] for the Encounter. Date/Time Encounter Type Encounter Description Reason Provider Source Nov 15, 2023 03:08 PM Outpatient Encounter HT NON-VIDEO MONITORING ICD-10-CM E11.9 Type 2 diabetes mellitus without complications [facility] Encounter Template Text not used by [place] Assessments - Encounter Diagnoses This section includes the primary and secondary diagnoses documented for the Encounter. Date/Time Primary/Secondary Diagnosis Diagnosis Name Provider Source Nov 15, 2023 03:40 PM PRIMARY Type 2 diabetes mellitus without complications RISA,BRE [facility] [place] [facility] Nov 15, 2023 03:40 PM SECONDARY Essential (primary) hypertension RISA,BRE [facility] [place] [facility] Plan of Treatment: Future Appointments (+ 6 months) and Future Tests (+/- 45 days) The Plan of Treatment section includes future care activities for the patient from all [place] treatmentfacilities. This section includes future appointments and future orders which are active, pending or scheduled. Future Appointments This section includes appointments that were scheduled to occur 6 months from the date of the Encounter, up to a maximum of 20 appointments. The data comes from all [place] treatment facilities. Appointment Date/Time Appointment Type Appointme nt Facility Name Nov 20, 2023 10:00 AM AMBULATORY - MEDICINE [facility] Dec 05, 2023 10:30 AM AMBULATORY - MEDICINE [facility] C [facility] [place] [facility] Dec 25, 2023 01:00 PM AMBULATORY - MEDICINE [facility] [place] Dec 26, 2023 10:45 AM AMBULATORY - NONE [facility] [place] [facility] Dec 31, 2023 08:00 AM AMBULATORY - MEDICINE [place] C [place] [place] [facility] Jan 17, 2024 08:00 AM AMBULATORY - MEDICINE [facility] C [facility] [place] [facility] Feb 17, 2024 11:00 AM AMBULATORY - MEDICINE [place] C [facility] [place] [facility] Mar 05, 2024 01:30 PM AMBULATORY - MEDICINE [facility] Mar 25, 2024 01:00 PM AMBULATORY - MEDICINE [facility] Apr 06, 2024 10:00 AM AMBULATORY - MEDICINE [facility] NTRL W[facility] Apr 23, 2024 10:45 AM [facility] Apr 29, 2024 10:00 AM AMBULATORY - MEDICINE [facility] Active, Pending, and Scheduled Orders This section includes a listing of several types of active, pending, and scheduled orders, including clinic medications orders, diagnostic test orders, procedure orders and consult orders; where the start date of the order is 45 days before the date of the Encounter or 45 days after the date of theEncounter. The data comes from all [place] treatment facilities. Test Date/Time Test Type Test Details Facility Name Dec 27, 2023 03:51 PM Consult Order COMMUNITY CARE-PHYSICAL THERAPY Cons [employer] Lab Results: +/- 30 days of the encounter This section includes the Chemistry and Hematology Lab Results on record with [place] for the patient. Radiology Reports and Pathology Reports are provided separately, in subsequent sections. Lab Results This section contains the Chemistry/Hematology Results that were resulted 30 days before or 30 daysafter the date of the Encounter. Date/Time Source Result Type Result - Unit Interpretation Reference Range Comment Dec 05, 2023 10:58 AM [facility] HEMOGLOBIN A1C PANEL Specimen Type: [...] Sep 04, 2023 12:58 PM Reporting Lab: [address] [address] Performing Lab: [facility] [address] [address] HEMOGLOBIN A1C 6.0 H 4.0-5.6 Dec 05, 2023 10:58 AM [facility] BASIC METABOLIC PANEL (non-fasting) Specimen Type: SERUM No comment entered. Ordering Provider: DEISY VELASCO Report Released Date/Time: Sep 04, 2023 12:58 PM Reporting Lab: [facility] [address] [address] Performing Lab: [facility] [address] [address] UREA NITROGEN 19 mg/dL 7-25 GLUCOSE 147 [...] and tobacco- related health factors from the [place] facility where the Encounter took place. Current Smoking Status This section includes the most current smoking, or tobacco-related health factor, from the [place] facility where the Encounter took place. Date/Time Current Smoking Status Comment [facility]ive Apr 05, 2023 11:30 AM VA-TOBACCO FORMER USER [facility] Tobacco Use History This section includes a history of the smoking, or tobacco-related health factors, that were collected on or before the date of the Encounter. The data comes from the [place] facility where the Encounter took place. Date/Time Smoking Status/Tobac co Use Comment Facility Apr 05, 2023 11:30 AM VA-TOBACCO QUIT [facility]RS [facility] MORE [facility] Dec 28, 2021 09:30 AM [facility] Dec 28, 2021 09:30 AM VA-TOBACCO QUIT [facility] YRS OR MORE [facility] Dec 02, 2020 09:00 AM VA-TOBACCO FORMER USER [facility] [place] [facility] Dec 02, 2020 09:00 AM VA-TOBACCO QUIT 15 YRS OR MORE [facility] [place] [facility] Aug 18, 2019 03:19 PM VA-TOBACCO FORMER USER [place] [facility] [place] [facility] Aug 18, 2019 03:19 PM VA-TOBACCO QUIT 15 YRS OR MORE [facility] [place] [facility] September 23, 2018 09:58 AM VA-TOBACCO FORMER USER [place] [facility] [place] [facility] September 23, 2018 09:58 AM VA-TOBACCO QUIT 15 YRS OR MORE [facility] [place] [facility] September 30, 2017 09:20 AM QUIT TOBACCO USE > 7 YEARS AGO [facility] [place] [facility] Aug 20, 2016 09:17 AM QUIT TOBACCO USE > 7 YEARS AGO [facility] Jun 27, 2016 09:45 AM CURRENT SMOKER Quit 25 years ago [facility] [place] [facility] Apr 18, 2015 09:06 AM QUIT TOBACCO USE > 7 YEARS AGO quit in 1991 [place] [facility] [place] [facility] Mar 21, 2005 10:12 AM HISTORY OF SMOKING [facility] Mar 21, 2005 10:12 AM QUIT TOBACCO USE > 7 YEARS AGO [facility] Advance Directives: All historical and current Section Date Range: From patient's date of to the date document was created. This section includes ALL of a patient's completed or amended [place] Advance and Rescinded Directives. The entries below indicate that a directive exists for the patient, but an actual copy is not included with this document. The data comes from all [place] facilities. Date Advance Directives Provider Source Feb 04, 2019 ADVANCE DIRECTIVE CESAR LUA [facility] Encounter Notes: All associated encounter notes This section contains the clinical notes associated to the Encounter. Date/Time Encounter Note(s) Provider Source Nov 15, 2023 03:39 PM CARE COORDINATION HOME TELEHEALTH SUMMARIZATION NOTE: LOCAL TITLE: HT MONTHLY MONITOR NOTE STANDARD TITLE: CARE COORDINATION HOME TELEHEALTH SUMMARIZATION DATE OF NOTE: NOV 15, 2023@15:39 ENTRY DATE: NOV 15, 2023@15:39:27 AUTHOR: TOÑO LORD EXP COSIGNER: URGENCY: STATUS: COMPLETED The [facility] is enrolled in the Home Telehealth (HT) program and continues to be monitored via HT technology. The data sent by the [facility] is reviewed and analyzed by the HT staff, who provide ongoing case management and health education while communicating and collaborating with the health care team as appropriate. This note covers a total of 30 minutes for the month monitored. Month monitored: October 2023 Dx: HTN/DM /es/ TOÑO LORD RN RPM-Home Telehealth [employer] Signed: 11/15/2023 15:42 TOÑO LORD [place] [facility]
--- OUTSIDE RECORDS SUMMARY | 2024-05-29 10:30 | XMS_ITS | Encounter Summary ---
Author Name [facility] [place] Address [address] [place] [address] Care Team Providers Care Change Management Facilitator Name Role Phone STACEY HORTON [facility] Insurance Providers: All historical and [...] STAND YON SELF May 29, [phone] [id number] Abdullahi SEVERINO PATIENT MEDICARE (WNR) MEDICARE (M) PART B Jul 18, 2012 PART B [id number] Abdullahi SEVERINO PATIENT MEDICARE (WNR) MEDICARE (M) PART B Jul 18, 2012 PART B [id number] Abdullahi SEVERINO PATIENT MEDICARE (WNR) MEDICARE (M) PART B Jul 18, 2012 PART B [id number] Abdullahi SEVERINO PATIENT MEDICARE (WNR) MEDICARE (M) PART A Dec 19, 2011 PART A [id number] Abdullahi SEVERINO PATIENT MEDICARE (WNR) MEDICARE (M) PART A Dec 19, 2011 PART A [id number] [phone] Abdullahi SEVERINO PATIENT MEDICARE (WNR) MEDICARE (M) PART A Dec 19, 2011 PART A [id number] Abdullahi SEVERINO PATIENT Selected Encounter This section includes the information on record at [place] for the Encounter. Date/Time Encounter Type Encounter Description Reason Provider Source Dec 05, 2023 10:17 AM CONT GLUC MNTR PT PROV EQP GENERAL INTERNAL MEDICINE ICD-10-CM E11.9 Type 2 diabetes mellitus without complications WILLI PHILLIP [facility] Encounter Template Text not used by [place] Assessments - Encounter Diagnoses This section includes the primary and secondary diagnoses documented for the Encounter. Date/Time Primary/Secondary Diagnosis Diagnosis Name Provider Source Dec 05, 2023 10:17 AM PRIMARY Type 2 diabetes mellitus without complications WILLI PHILLIP [place] [facility] Plan of Treatment: Future Appointments (+ 6 months) and Future Tests (+/- 45 days) The Plan of Treatment section includes future care activities for the patient from all [place] [facility]. This section includes future appointments and future orders which are active, pending or scheduled. Future Appointments This section includes appointments that were scheduled to occur 6 months from the date of the Encounter, up to a maximum of 20 appointments. The data comes from all [place] treatment facilities. Appointment Date/Time Appointment Type Appointme nt Facility Name Dec 25, 2023 01:00 PM AMBULATORY - MEDICINE [facility] [place] Dec 26, 2023 10:45 AM AMBULATORY - NONE [place] [facility] Dec 31, 2023 08:00 AM AMBULATORY - MEDICINE [place] C [place] [facility] Jan 17, 2024 08:00 AM AMBULATORY - MEDICINE [place] C [place] [facility] Feb 17, 2024 11:00 AM AMBULATORY - MEDICINE [place] C [place] [facility] Mar 05, 2024 01:30 PM AMBULATORY - MEDICINE [place] C [place] [facility] Mar 25, 2024 01:00 PM [facility] Apr 06, 2024 10:00 AM [facility]AT[facility] - MEDIC[facility] Apr 23, 2024 10:45 AM [facility] Apr 29, 2024 10:00 AM AMBULATORY - MEDIC[facility] Jun 01, 2024 11:30 AM AMBULATORY - MEDICINE [facility] Active, Pending, and Scheduled Orders This [...] PM Consult Order COMMUNITY CARE-PHYSICAL THERAPY Cons [facility] Lab Results: +/- 30 days of [...] - Unit Interpretation Reference Range Comment Dec 25, 2023 01:56 PM SEILING GLUCOSE, Fingerstick Specimen Type: BLOOD Comment: For GLU FinTest performed by: Crys Vance For GLU Fin Meter #: [id number] Ordering Provider: CRYS VANCE Report Released Date/Time: Dec 25, 2023 03:45 PM Reporting Lab: [address] [address] Performing Lab: [address] [address] GLUCOSE, Fingerstick 143 mg/dL H 65-100 Dec 05, 2023 10:58 AM [facility] HEMOGLOBIN A1C PANEL Specimen Type: BLOOD [...] Sep 04, 2023 12:58 PM Reporting Lab: [facility] [address] [facility] [address] Performing Lab: [address] [address] HEMOGLOBIN A1C 6.0 H 4.0-5.6 Dec 05, 2023 10:58 AM [facility] BASIC METABOLIC PANEL (non-fasting) Specimen Type: SERUM No comment entered. Ordering Provider: DEISY VELASCO Report Released Date/Time: Sep 04, 2023 12:58 PM Reporting Lab: [address] [address] Performing Lab: [address] [address] UREA NITROGEN 19 mg/dL 7-25 GLUCOSE 147 mg/dL H 65-100 SODIUM 136 mmol/L 135-145 POTASSIUM 4.6 mmol/L 3.5-5.0 CHLORIDE 104 mmol/L 100-110 CO2 23 meq/L 20-30 CREATININE, Serum 0.92 mg/dL 0.50-1.40 eGFR(CKD-EPI 2020) 86 mL/min >60 Vital Signs: All taken on the encounter date This section contains inpatient and outpatient Vital Signs collected on the date of the Encounter. Date/Time Temperature Pulse Blood Pressure Respiratory Rate SP02 Pain Height Weight Body Mass Index Source Dec 05, 2023 10:15 AM 98.1 76 122/61 16 96 2 71 227 32 [facility] Social History: Smoking Status (Most current) [...] 05, 2023 11:30 AM VA-TOBACCO FORMER USER [facility] Tobacco Use History This section includes a history of the smoking, or tobacco-related health factors, that were collected on or before the date of the Encounter. The data comes from the [place] facility where the Encounter took place. Date/Time Smoking Status/Tobac co Use Comment Facility Apr 05, 2023 11:30 AM VA-TOBACCO QUIT 15 YRS OR MORE [place] [facility] Dec 28, 2021 09:30 AM VA-TOBACCO FORMER USER [place] [facility] [place] [facility] Dec 28, 2021 09:30 AM VA-TOBACCO QUIT 15 YRS OR MORE [place] [facility] [place] [facility] Dec 02, 2020 09:00 AM VA-TOBACCO FORMER USER [place] [facility] Dec 02, 2020 09:00 AM VA-TOBACCO QUIT 15 YRS OR MORE [place] [facility] Aug 18, 2019 03:19 PM VA-TOBACCO FORMER USER [place] [facility] [place] [facility] Aug 18, 2019 03:19 PM VA-TOBACCO QUIT 15 YRS OR MORE [place] [facility] September 23, 2018 09:58 AM VA-TOBACCO FORMER USER [place] [facility] September 23, 2018 09:58 AM VA-TOBACCO QUIT 15 YRS OR MORE [place] [facility] September 30, 2017 09:20 AM QUIT TOBACCO USE > 7 YEARS AGO [place] [facility] [place] [facility] Aug 20, 2016 09:17 AM QUIT TOBACCO USE > 7 YEARS AGO quit 1991 [place] [facility] Jun 27, 2016 09:45 AM CURRENT SMOKER Quit 25 years ago [place] [facility] Apr 18, 2015 09:06 AM QUIT TOBACCO USE > 7 YEARS AGO quit in 1991 [place] [facility] Mar 21, 2005 10:12 AM HISTORY OF SMOKING [place] [facility] [place] [facility] Mar 21, 2005 10:12 AM QUIT TOBACCO USE > 7 YEARS AGO [place] [facility] [place] [facility] Advance Directives: All historical and [...] Source Feb 04, 2019 ADVANCE DIRECTIVE STONEYCESAR [place] CN[place] [facility] Encounter Notes: All associated encounter notes This section contains the clinical notes associated to the Encounter. Date/Time Encounter Note(s) Provider Source Dec 05, 2023 10:19 AM DIABETOLOGY NOTE: LOCAL TITLE: GLUCOSE PATIENT METER DATA STANDARD TITLE: DIABETOLOGY NOTE DATE OF NOTE: DEC 05, 2023@10:19 ENTRY DATE: DEC 05, 2023@10:19:08 AUTHOR: WILLI PHILLIP COSIGNER: URGENCY: STATUS: COMPLETED Name: CARL SEVERINO : 1945 ID: [id number] Information from [facility] on 12/05/2023 Patient Name: CARL SEVERINO Date Range: 10/25/2023 - 11/07/2023 bG values are displayed in mg/dL # of tests 21 Average 164 SD 44.3 Highest 251 Lowest 68 Avg tests/day 1.5 # HI 0 # LO 0 <70 4.8% 70-140 33.3% >140 61.9% Hypos(<50) 0 Date Range: 10/25/2023 - 11/07/2023 bG values are displayed in mg/dL 00:00- 05:30- 08:00- 11:00- 12:30- 17:00- 18:30- 21:30- 05:30 08:00 11:00 12:30 17:00 18:30 21:30 00:00 Sat10/25/2023 171 117 10/26/2023 178 10/27/2023 158 10/28/2023 193 10/29/2023 68 10/30/2023 216 105 Jody 10/31/2023 251 136 11/01/2023 149 11/02/2023 200 128 11/03/2023 139 229 11/04/2023 160 204 11/05/2023 200 133 11/06/2023 165 Jody 11/07/2023 140 Date Range: 10/25/2023 - 11/07/2023 bG values are displayed in mg/dL 00:00- 05:30- 08:00- 11:00- 12:30- 17:00- 18:30- 21:30- 05:30 08:00 11:00 12:30 17:00 18:30 21:30 00:00 # of tests 0 2 9 1 3 2 4 0 Average 0 144 172 158 179 123 166 0 SD 7.1 51.3 0 39.9 7.8 55.7 Hi/Lo 0 0 0 0 0 0 0 0 Date Range: 10/25/2023 - 11/07/2023 bG values are displayed in mg/dL 10/25/2023 9:04 AM 171 5:47 PM 117 10/26/2023 10:01 AM 178 10/27/2023 11:03 AM 158 10/28/2023 8:52 PM 193 10/29/2023 8:30 AM 68 10/30/2023 9:55 AM 216 8:43 PM 105 10/31/2023 10:04 AM 251 8:59 PM 136 11/01/2023 7:41 AM 149 11/02/2023 4:27 PM 200 5:58 PM 128 11/03/2023 7:34 AM 139 8:12 PM 229 11/04/2023 10:52 AM 160 1:50 PM 204 11/05/2023 8:36 AM 200 1:25 PM 133 11/06/2023 10:11 AM 165 11/07/2023 8:13 AM 140 End of information from [facility] /es/ WILLI PHILLIP RN Signed: 12/05/2023 10:19 WILLI PHILLIP [facility]L [place] [facility] Dec 05, 2023 10:17 AM DIABETOLOGY NOTE: LOCAL TITLE: INSULIN PUMP/CGM DOWNLOAD (T) STANDARD TITLE: DIABETOLOGY NOTE DATE OF NOTE: DEC 05, 2023@10:17 ENTRY DATE: DEC 05, 2023@10:18:05 AUTHOR: WILLI PHILLIP EXP COSIGNER: URGENCY: STATUS: COMPLETED Please select: Personal Continuous Glucose Monitor Date of Documentation:Nov Please see attached scanned document in [employer]. Bhargav 3 Dx: Type 2 DM /es/ WILLI PHILLIP RN Signed: 12/05/2023 10:18 [facility]
--- OUTSIDE RECORDS SUMMARY | 2024-05-29 10:30 | XMS_ITS | Encounter Summary ---
Author Name [facility] [place] [facility] [place] Address [address] [place] [address] Care Team Providers Care Dynamotor Repairer Name Role Phone STACEY HORTON Primary Care Provider [facility] Insurance Providers: All historical and current Section [...] STAND YON SELF May 29, [phone] [id number] Abdullahi SEVERINO PATIENT MEDICARE (WNR) MEDICARE (M) PART B Jul 18, 2012 PART B [id number] Abdullahi SEVERINO PATIENT MEDICARE (WNR) MEDICARE (M) PART B Jul 18, 2012 PART B [id number] Abdullahi SEVERINO PATIENT MEDICARE (WNR) MEDICARE (M) PART B Jul 18, 2012 PART B [id number] Abdullahi SEVERINO PATIENT MEDICARE (WNR) MEDICARE (M) PART A Dec 19, 2011 PART A [id number] Abdullahi SEVERINO PATIENT MEDICARE (WNR) MEDICARE (M) PART A Dec 19, 2011 PART A [id number] [phone] Abdullahi SEVERINO PATIENT MEDICARE (WNR) MEDICARE (M) PART A Dec 19, 2011 PART A [id number] Abdullahi SEVERINO PATIENT Selected Encounter This section includes the information on record at [place] for the Encounter. Date/Time Encounter Type Encounter Description Reason Provider Source Dec 16, 2023 11:52 AM PRO PHONE CALL 5-10 MIN TELEPHONE/MEDICIN E ICD-10-CM E66.9 Obesity, unspecified NIKKY LORD Encounter Template Text not used by [place] Assessments - Encounter Diagnoses This section includes the primary and secondary diagnoses documented for the Encounter. Date/Time Primary/Secondary Diagnosis Diagnosis Name Provider Source Dec 16, 2023 11:52 AM PRIMARY Obesity, unspecified RISAKRISTIE NDA [place] [facility] [place] [facility] Dec 16, 2023 11:52 AM SECONDARY Essential (primary) hypertension RISAKRISTIE BRIDGES NDA [place] [facility] [place] [facility] Dec 16, 2023 11:52 AM SECONDARY Type 2 diabetes mellitus without complications RISAKRISTIE BRIDGES [facility] [place] [facility] Plan of Treatment: Future Appointments (+ 6 months) and Future Tests (+/- 45 days) The Plan of Treatment section includes future care activities for the patient from all [place] treatmentfacilities. This section includes future appointments and future orders which are active, pending or scheduled. Future Appointments This section includes appointments that were scheduled to occur 6 months from the date of the Encounter, up to a maximum of 20 appointments. The data comes from all [place] treatment facilities. Appointment Date/Time Appointment Type Appointme nt Facility Name Dec 25, 2023 01:00 PM AMBULATORY - MEDICINE [facility] Dec 26, 2023 10:45 AM AMBULATORY - NONE [place] [facility] [place] [facility] Dec 31, 2023 08:00 AM AMBULATORY - MEDICINE [place] [facility] [facility] Jan 17, 2024 08:00 AM AMBULATORY - MEDICINE [place] [facility] [facility] Feb 17, 2024 11:00 AM AMBULATORY - MEDICINE [place] [facility] [place] [facility] Mar 05, 2024 01:30 PM AMBULATORY - MEDICINE [place] [facility] [place] [facility] Mar 25, 2024 01:00 PM AMBULATORY - MEDICINE [facility] [place] Apr 06, 2024 10:00 AM AMBULATORY - MEDICINE [place] [facility] [facility] Apr 23, 2024 10:45 AM AMBULATORY - NONE [place] [facility] [place] [facility] Apr 29, 2024 10:00 AM AMBULATORY - MEDICINE [place] [facility] [facility] Jun 01, 2024 11:30 AM [facility]BULATORY - [facility] Active, Pending, and Scheduled Orders This section includes a listing of several types of active, pending, and scheduled orders, including clinic medications orders, diagnostic test orders, procedure orders and consult orders; where the start date of the order is 45 days before the date of the Encounter or 45 days after the date of theEncounter. The data comes from all [place] treatment facilities. Test Date/Time Test Type Test Details Facility Name Dec 27, 2023 03:51 PM Consult Order COMMUNITY CARE-PHYSICAL THERAPY Cons Geospatial Imagery Intelligence Analyst's Choice [facility] Lab Results: +/- 30 days of the encounter This section includes the Chemistry and Hematology Lab Results on record with [place] for the patient. Radiology Reports and Pathology Reports are provided separately, in subsequent sections. Lab Results This section contains the Chemistry/Hematology Results that were resulted 30 days before or 30 daysafter the date of the Encounter. Date/Time Source Result Type Result - Unit Interpretation Reference Range Comment Dec 25, 2023 01:56 PM [place] GLUCOSE, Fingerstick Specimen Type: BLOOD Comment: For GLU FinTest performed by: Crys Slade For GLU Fin Meter #: [id number] Ordering Provider: CRYS SLADE Report Released Date/Time: Dec 25, 2023 03:45 PM Reporting Lab: [address] [address] Performing Lab: [address] [address] GLUCOSE, Fingerstick 143 mg/dL H 65-100 Dec 05, 2023 10:58 AM [facility] HEMOGLOBIN A1C PANEL Specimen Type: BLOOD Comment: [...] Sep 04, 2023 12:58 PM Reporting Lab: [facility] [address] [facility] [facility] [address] Performing Lab: [address] [address] HEMOGLOBIN A1C 6.0 H 4.0-5.6 Dec 05, 2023 10:58 AM [facility] BASIC METABOLIC PANEL (non-fasting) Specimen Type: SERUM No comment entered. Ordering Provider: DEISY VELASCO Report Released Date/Time: Sep 04, 2023 12:58 PM Reporting Lab: [facility] [address] [facility] [facility] [address] Performing Lab: [address] [address] UREA NITROGEN 19 mg/dL 7-25 GLUCOSE 147 [...] and tobacco- related health factors from the [place] facility where the Encounter took place. Current Smoking Status This section includes the most current smoking, or tobacco-related health factor, from the [place] facility where the Encounter took place. Date/Time Current Smoking Status Comment Therese bernstein Apr 05, 2023 11:30 AM VA-TOBACCO FORMER USER [facility] Tobacco Use History This section includes a history of the smoking, or tobacco-related health factors, that were collected on or before the date of the Encounter. The data comes from the [place] facility where the Encounter took place. Date/Time Smoking Status/Tobac co Use Comment Facility Apr 05, 2023 11:30 AM VA-TOBACCO QUIT 15 YRS OR MORE [place] [facility] [place] [facility] Dec 28, 2021 09:30 AM VA-TOBACCO FORMER USER [facility] [place] [facility] Dec 28, 2021 09:30 AM VA-TOBACCO QUIT 15 YRS OR MORE [facility] [place] [facility] Dec 02, 2020 09:00 AM VA-TOBACCO FORMER USER [place] [facility] [place] [facility] Dec 02, 2020 09:00 AM VA-TOBACCO QUIT 15 YRS OR MORE [place] [facility] [facility] Aug 18, 2019 03:19 PM VA-TOBACCO FORMER USER [place] [facility] [place] [facility] Aug 18, 2019 03:19 PM VA-TOBACCO QUIT 15 YRS OR MORE [place] [facility] [facility] September 23, 2018 09:58 AM VA-TOBACCO FORMER USER [place] [facility] [facility] September 23, 2018 09:58 AM VA-TOBACCO QUIT 15 YRS OR MORE [place] [facility] [facility] September 30, 2017 09:20 AM QUIT TOBACCO USE > 7 YEARS AGO [place] [facility] [place] [facility] Aug 20, 2016 09:17 AM QUIT TOBACCO USE > 7 YEARS AGO quit 1991 [place] [facility] [place] [facility] Jun 27, 2016 09:45 AM CURRENT SMOKER Quit 25 years ago [place] [facility] [place] [facility] Apr 18, 2015 09:06 AM QUIT TOBACCO USE > 7 YEARS AGO quit in 1991 [place] [facility] [place] [facility] Mar 21, 2005 10:12 AM HISTORY OF SMOKING [facility] [place] [facility] Mar 21, 2005 10:12 AM QUIT TOBACCO USE > 7 YEARS AGO [place] [facility] [place] [facility] Advance Directives: All historical and current Section Date Range: From patient's date of to the date document was created. This section includes ALL of a patient's completed or amended VA Advance and Rescinded Directives. The entries below indicate that a directive exists for the patient, but an actual copy is not included with this document. The data comes from all [place] facilities. Date Advance Directives Provider Source Feb 04, 2019 ADVANCE DIRECTIVE CESAR LUA [place] [facility] [place] [facility] Encounter Notes: All associated encounter notes This section contains the clinical notes associated to the Encounter. Date/Time Encounter Note(s) Provider Source Dec 16, 2023 11:52 AM CARE COORDINATION HOME TELEHEALTH FOLLOW-UP NOTE: LOCAL TITLE: HT INTERVENTION NOTE STANDARD TITLE: CARE COORDINATION HOME TELEHEALTH FOLLOW-UP NOTE DATE OF NOTE: DEC 16, 2023@11:52 ENTRY DATE: DEC 16, 2023@11:52:36 AUTHOR: TOÑO LORD COSIGNER: URGENCY: STATUS: COMPLETED is actively enrolled in the Home Telehealth program. Review of data shows the following responses: CARL SEVERINO (-[id number]) Vital Sign for: 11/17/2023 - 12/16/2023 (All times are EST; All weights are lbs) Primary DMP: [facility]-Wt Mgmt Comorbid(s): DM/HTN Summary Weight Sys BP Krishnamurthy BP HR Glu Pain High 160 82 86 190 Low 97 54 59 80 Average 123 67 68 133 Date Time Wt Time Sys Krishnamurthy HR Time Glu Time Pain 12/16/2023 - 07:54 137/82 60 07:44 130 12/15/2023 - 17:46 121/60 61 17:45 80 12/14/2023 - 22:53 110/59 65 22:15 115 12/13/2023 - 16:43 126/64 60 16:30 131 12/12/2023 - 21:20 148/73 64 21:10 124 12/11/2023 - 19:16 132/65 80 19:10 115 12/09/2023 - 08:01 120/61 75 08:00 105 12/08/2023 - - 76 - 12/08/2023 - - - 08:00 119 12/07/2023 - 12:25 115/66 62 12:15 126 12/06/2023 - 18:09 131/60 69 18:00 160 12/05/2023 - 18:53 137/80 67 18:45 180 12/04/2023 - 14:40 132/66 64 14:34 190 12/03/2023 - 07:57 101/67 - 07:46 149 12/02/2023 - 13:35 120/78 59 13:27 150 11/30/2023 - 20:10 128/54 65 19:09 123 11/29/2023 - 08:21 112/64 69 08:10 138 11/28/2023 - 13:16 99/60 63 13:10 165 11/27/2023 - 09:52 97/64 86 09:40 115 11/26/2023 - 07:51 115/66 66 - 11/26/2023 - - - 07:47 127 11/25/2023 - 19:46 138/67 73 19:34 90 11/24/2023 - 08:23 108/67 59 - 11/24/2023 - 07:51 160/71 64 07:40 124 11/23/2023 - 05:53 131/68 72 05:52 141 11/21/2023 - - 73 17:26 159 11/19/2023 - 07:24 120/72 68 07:23 170 11/18/2023 - 07:06 138/71 73 07:05 150 11/17/2023 - 19:37 106/69 82 19:27 86 Source: [employer]; [employer] Assessment: on [facility] program for Weight management. requested that the weight measurement be suspended due to having knee replacement surgery. (see previous notes for specifics.) Spoke to , identified by full name/. states what could be wrong now. Shop Welder explained to that nothing is wrong but the call is for an update and to possibly resume weight checks. [place] states oh ok yes go a head and add the weight back in. I may need to callyou next month since I may be having the second knee done . Instructed [place] to contact CC [phone].Reviewed above vitals (within normal limits.. [place] denies any changes. continues with low sodium diet. Exercise as tolerated due to recent knee surgery.Encouraged to continue ith current plan and will add weight check effective with next health check. Vetera remains abrupt on the phone and appears to want to end the call jaz. Intervention(s)/Plan: Reviewed [facility]- rogram requirements with [place]. Daily weight checks for Weight management program TYPE OF ENCOUNTER: Telephone Length of call: 5-10 minutes /skinny/ TOÑO LORD RN RPM-Home Telehealth Sales And Retail Management Recruiter Signed: 12/16/2023 12:04 TOÑO LORD [place] [facility]
--- OUTSIDE RECORDS SUMMARY | 2024-05-29 10:30 | XMS_ITS | Encounter Summary ---
Author Name [facility] [place] Address [address] [place] [address] Care Team Providers Care Supervisor Hot Strip Mill Name Role Phone STACEY HORTON Primary Care [...] STAND YON SELF May 29, [phone] [id number] Abdullahi SEVERINO PATIENT MEDICARE (WNR) MEDICARE (M) PART B Jul 18, 2012 PART B [id number] [phone] Abdullahi SEVERINO PATIENT MEDICARE (WNR) MEDICARE (M) PART B Jul 18, 2012 PART B [id number] Abdullahi SEVERINO PATIENT MEDICARE (WNR) MEDICARE (M) PART B Jul 18, 2012 PART B [id number] Abdullahi SEVERINO PATIENT MEDICARE (WNR) MEDICARE (M) PART A Dec 19, 2011 PART A [id number] Abdullahi SEVERINO PATIENT MEDICARE (WNR) MEDICARE (M) PART A Dec 19, 2011 PART A [id number] Abdullahi SEVERINO PATIENT MEDICARE (WNR) MEDICARE (M) PART A Dec 19, 2011 PART A [id number] [id number] Abdullahi SEVERINO PATIENT Selected Encounter This section includes the information on record at [place] for the Encounter. Date/Time Encounter Type Encounter Description Reason Provider Source Dec 18, 2023 04:06 PM Outpatient Encounter HT NON-VIDEO MONITORING ICD-10-CM E11.9 Type 2 diabetes mellitus without complications KRISTIE LORD [facility] Encounter Template Text not used by [place] Assessments - Encounter Diagnoses This section includes the primary and secondary diagnoses documented for the Encounter. Date/Time Primary/Secondary Diagnosis Diagnosis Name Provider Source Dec 18, 2023 04:36 PM PRIMARY Type 2 diabetes mellitus without complications RISA,BRE [facility] [place] [facility] Dec 18, 2023 04:36 PM SECONDARY Essential (primary) hypertension RISA,BRE [facility] [place] [facility] Plan of Treatment: Future Appointments (+ 6 months) and Future Tests (+/- 45 days) The Plan of Treatment section includes future care activities for the patient from all [place] treatmentfacilities. This section includes future appointments and future orders which are active, pending or scheduled. Future Appointments This section includes appointments that were scheduled to occur 6 months from the date of the Encounter, up to a maximum of 20 appointments. The data comes from all [place] treatment facilities. Appointment Date/Time Appointment Type Appointme nt Facility Name Dec 25, 2023 01:00 PM [facility] Dec 26, 2023 10:45 AM AMBULATORY - NONE [place] [facility] [facility] Dec 31, 2023 08:00 AM AMBULATORY - MEDICINE [place] C [facility] [place] [facility] Jan 17, 2024 08:00 AM AMBULATORY - MEDICINE [place] C [facility] [place] [facility] Feb 17, 2024 11:00 AM AMBULATORY - MEDICINE [place] C [facility] [place] [facility] Mar 05, 2024 01:30 PM AMBULATORY - MEDICINE [facility] [place] [facility] Mar 25, 2024 01:00 PM AMBULATORY - MEDICINE [facility] Apr 06, 2024 10:00 AM AMBULATORY - MEDICINE [facility] Apr 23, 2024 10:45 AM [facility] Apr 29, 2024 10:00 AM AMBULATORY - [facility] Jun 01, 2024 11:30 AM [facility] Active, Pending, and Scheduled Orders This section includes a listing of several types of active, pending, and scheduled orders, including clinic medications orders, diagnostic test orders, procedure orders and consult orders; where the start date of the order is 45 days before the date of the Encounter or 45 days after the date of theEncounter. The data comes from all [place] treatment facilities. Test Date/Time Test Type Test Details Facility Name Dec 27, 2023 03:51 PM Consult Order COMMUNITY CARE-PHYSICAL THERAPY Cons Cotton Candy Maker's Choice [facility] Lab Results: +/- 30 days of the encounter This section includes the Chemistry and Hematology Lab Results on record with [place] for the patient. Radiology Reports and Pathology Reports are provided separately, in subsequent sections. Lab Results This section contains the Chemistry/Hematology Results that were resulted 30 days before or 30 daysafter the date of the Encounter. Date/Time Source Result Type Result - Unit Interpretation Reference Range Comment Dec 25, 2023 01:56 PM [place] GLUCOSE, Fingerstick Specimen Type: BLOOD Comment: For GLU FinTest performed by: Crys Slade For GLU Fin Meter #: [id number] Ordering Provider: CRYS SLADE Report Released Date/Time: Dec 25, 2023 03:45 PM Reporting Lab: [address] [address] Performing Lab: [address] [address] GLUCOSE, Fingerstick 143 mg/dL H 65-100 Dec 05, 2023 10:58 AM [facility] HEMOGLOBIN A1C PANEL Specimen Type: BLOOD [...] Sep 04, 2023 12:58 PM Reporting Lab: [address] [address] Performing Lab: [address] [address] HEMOGLOBIN A1C 6.0 H 4.0-5.6 Dec 05, 2023 10:58 AM [facility] BASIC METABOLIC PANEL (non-fasting) Specimen Type: SERUM No comment entered. Ordering Provider: DEISY VELASCO Report Released Date/Time: Sep 04, 2023 12:58 PM Reporting Lab: [address] [address] Performing Lab: [address] [address] UREA NITROGEN 19 mg/dL 7-25 GLUCOSE 147 [...] and tobacco- related health factors from the [place] facility where the Encounter took place. Current Smoking Status This section includes the most current smoking, or tobacco-related health factor, from the [place] facility where the Encounter took place. Date/Time Current Smoking Status Comment Therese bernstein Apr 05, 2023 11:30 AM VA-TOBACCO FORMER USER [facility] Tobacco Use History This section includes a history of the smoking, or tobacco-related health factors, that were collected on or before the date of the Encounter. The data comes from the [place] facility where the Encounter took place. Date/Time Smoking Status/Tobac co Use Comment Facility Apr 05, 2023 11:30 AM VA-TOBACCO QUIT 15 YRS OR MORE [place] [facility] [place] [facility] Dec 28, 2021 09:30 AM VA-TOBACCO FORMER USER [place] [facility] [facility] Dec 28, 2021 09:30 AM VA-TOBACCO QUIT 15 YRS OR MORE [place] [facility] [place] [facility] Dec 02, 2020 09:00 AM VA-TOBACCO FORMER USER [place] [facility] [place] [facility] Dec 02, 2020 09:00 AM VA-TOBACCO QUIT 15 YRS OR MORE [place] [facility] [place] [facility] Aug 18, 2019 03:19 PM VA-TOBACCO FORMER USER MT [facility] [place] [facility] Aug 18, 2019 03:19 PM VA-TOBACCO QUIT 15 YRS OR MORE [place] [facility] [place] [facility] September 23, 2018 09:58 AM VA-TOBACCO FORMER USER [place] [facility] [place] [facility] September 23, 2018 09:58 AM VA-TOBACCO QUIT 15 YRS OR MORE MT [facility] [place] [facility] September 30, 2017 09:20 AM QUIT TOBACCO USE > 7 YEARS AGO MT [facility] [place] [facility] Aug 20, 2016 09:17 AM QUIT TOBACCO USE > 7 YEARS AGO quit 1991 [place] [facility] [place] [facility] Jun 27, 2016 09:45 AM CURRENT SMOKER Quit 25 years ago [place] [facility] [place] [facility] Apr 18, 2015 09:06 AM QUIT TOBACCO USE > 7 YEARS AGO quit in 1991 [place] [facility] [place] [facility] Mar 21, 2005 10:12 AM HISTORY OF SMOKING MT [facility] [place] [facility] Mar 21, 2005 10:12 AM QUIT TOBACCO USE > 7 YEARS AGO MT CNTR [place] [facility] Advance Directives: All historical and current Section Date Range: From patient's date of to the date document was created. This section includes ALL of a patient's completed or amended VA Advance and Rescinded Directives. The entries below indicate that a directive exists for the patient, but an actual copy is not included with this document. The data comes from all [place] facilities. Date Advance Directives Provider Source Feb 04, 2019 ADVANCE DIRECTIVE CESAR LUA [place] [facility] Encounter Notes: All associated encounter notes This section contains the clinical notes associated to the Encounter. Date/Time Encounter Note(s) Provider Source Dec 18, 2023 04:35 PM CARE COORDINATION HOME TELEHEALTH SUMMARIZATION NOTE: LOCAL TITLE: HT MONTHLY MONITOR NOTE STANDARD TITLE: CARE COORDINATION HOME TELEHEALTH SUMMARIZATION DATE OF NOTE: DEC 18, 2023@16:35 ENTRY DATE: DEC 18, 2023@16:35:21 AUTHOR: TOÑO LORD EXP COSIGNER: URGENCY: STATUS: COMPLETED The [place] is enrolled in the Home Telehealth (HT) program and continues to be monitored via HT technology. The data sent by the is reviewed and analyzed by the staff, who provide ongoing case management and health education while communicating and collaborating with the health care team as appropriate. This note covers a total of 30 minutes for the month monitored. Month monitored: NOVEMBER 2023 Dx: DM/HTN /es/ TOÑO LORD RN RPM-Home Telehealth Vascular Physician Signed: 12/18/2023 16:39 TOÑO LORD [place] HERIBERTOL WSTRN [facility]
--- OUTSIDE RECORDS SUMMARY | 2024-05-29 10:30 | XMS_ITS ---
Author Name [facility] [place] [facility] [place] Address [address] [place] [address] Care Team Providers Care Tenoner Operator Name Role Phone STACEY HORTON Primary [...] STAND YON SELF May 29, [phone] [id number] Abdullahi SEVERINO PATIENT MEDICARE (WNR) MEDICARE (M) PART B Jul 18, 2012 PART B [id number] [phone] Abdullahi SEVERINO PATIENT MEDICARE (WNR) MEDICARE (M) PART B Jul 18, 2012 PART B [id number] [phone] Abdullahi SEVERINO PATIENT MEDICARE (WNR) MEDICARE (M) PART B Jul 18, 2012 PART B [id number] [phone] Abdullahi SEVERINO PATIENT MEDICARE (WNR) MEDICARE (M) PART A Dec 19, 2011 PART A [id number] Abdullahi SEVERINO PATIENT MEDICARE (WNR) MEDICARE (M) PART A Dec 19, 2011 PART A [id number] Abdullahi SEVERINO PATIENT MEDICARE (WNR) MEDICARE (M) PART A Dec 19, 2011 PART A [id number] [phone] Abdullahi SEVERINO PATIENT Selected Encounter This section includes the information on record at [place] for the Encounter. Date/Time Encounter Type Encounter Description Reason Pro vider Source Jan 07, 2024 03:59 PM Outpatient Encounter TELEPHONE PRIMARY CARE IHE Encounter Template Text not used by [place] Plan of Treatment: Future Appointments (+ 6 months) and Future Tests (+/- 45 days) The Plan of Treatment section includes future care activities for the patient from all [place] treatmentfacilities. This section includes future appointments and future orders which are active, pending or scheduled. Future Appointments This section includes appointments that were scheduled to occur 6 months from the date of the Encounter, up to a maximum of 20 appointments. The data comes from all [place] treatment facilities. Appointment Date/Time Appointment Type Appointme nt Facility Name Jan 17, 2024 08:00 AM AMBULATORY - [place]ICINE [place] [facility] Feb 17, 2024 11:00 AM AMBULATORY - MEDICINE [place] [facility] Mar 05, 2024 01:30 PM AMBULATORY - MEDICINE [place] [facility] Mar 25, 2024 01:00 PM [facility] Apr 06, 2024 10:00 AM AMBULATORY - [place]ICINE [place] [facility] Apr 23, 2024 10:45 AM AMBULATORY - NONE [place] [facility] [place] [facility] Apr 29, 2024 10:00 AM AMBULATORY - MEDICINE [place] [facility] Jun 01, 2024 11:30 AM AMBULATORY - MEDICINE [place] [facility] Active, Pending, and Scheduled Orders This section includes a listing of several types of active, pending, and scheduled orders, including clinic medications orders, diagnostic test orders, procedure orders and consult orders; where the start date of the order is 45 days before the date of the Encounter or 45 days after the date of theEncounter. The data comes from all [place] treatment facilities. Test Date/Time Test Type Test Details Facility Name Dec 27, 2023 03:51 PM Consult Order COMMUNITY CARE-PHYSICAL THERAPY Cons Tile Layer[facility] Choice [facility] Lab Results: +/- 30 days of the encounter This section includes the Chemistry and Hematology Lab Results on record with [place] for the patient. Radiology Reports and Pathology Reports are provided separately, in subsequent sections. Lab Results This section contains the Chemistry/Hematology Results that were resulted 30 days before or 30 daysafter the date of the Encounter. Date/Time Source Result Type Result - Unit Interpretation Reference Range Comment Dec 25, 2023 01:56 PM LEOM[place]ER GLUCOSE, Fingerstick Specimen Type: BLOOD Comment: For GLU FinTest performed by: Crys Slade For GLU Fin Meter #: [id number] Ordering Provider: IBRAHIMA SLADE Report Released Date/Time: Dec 25, 2023 03:45 PM Reporting Lab: [address] [address] Performing Lab: [address] [address] GLUCOSE, Fingerstick 143 mg/dL H 65-100 Social History: Smoking Status (Most current) and Tobacco Use (All prior to encounter date) This section includes the most current, and the historical, smoking and tobacco- related health factors from the [place] facility where the Encounter took place. Current Smoking Status This section includes the most current smoking, or tobacco-related health factor, from the [place] facility where the Encounter took place. Date/Time Current Smoking Status Comment Therese clive Apr 05, 2023 11:30 AM VA-TOBACCO FORMER USER [facility] Tobacco Use History This section includes a history of the smoking, or tobacco-related health factors, that were collected on or before the date of the Encounter. The data comes from the [place] facility where the Encounter took place. Date/Time Smoking Status/Tobac co Use Comment [email or web address] Apr 05, 2023 11:30 AM [place]-TOBACCO QUIT 15 YRS OR MORE [place] [facility] Dec 28, 2021 09:30 AM [facility] Dec 28, 2021 09:30 AM [place]-TOBACCO QUIT 15 YRS OR MORE [place] [facility] [place] [facility] Dec 02, 2020 09:00 AM VA-TOBACCO FORMER USER [place] [facility] [place] [facility] Dec 02, 2020 09:00 AM VA-TOBACCO QUIT 15 YRS OR MORE [place] [facility] [place] [facility] Aug 18, 2019 03:19 PM VA-TOBACCO FORMER USER [place] [facility] [place] [facility] Aug 18, 2019 03:19 PM VA-TOBACCO QUIT 15 YRS OR MORE [place] [facility] [place] [facility] September 23, 2018 09:58 AM VA-TOBACCO FORMER USER [place] [facility] [place] [facility] September 23, 2018 09:58 AM VA-TOBACCO QUIT 15 YRS OR MORE [place] [facility] [place] [facility] September 30, 2017 09:20 AM QUIT TOBACCO USE > 7 YEARS AGO [place] [facility] [place] [facility] Aug 20, 2016 09:17 AM QUIT TOBACCO USE > 7 YEARS AGO quit 1991 [place] [facility] [place] [facility] Jun 27, 2016 09:45 AM CURRENT SMOKER Quit 25 years ago [place] [facility] [place] [facility] Apr 18, 2015 09:06 AM QUIT TOBACCO USE > 7 YEARS AGO quit in 1991 [place] [facility] [place] [facility] Mar 21, 2005 10:12 AM HISTORY OF SMOKING [place] [facility] [place] [facility] Mar 21, 2005 10:12 AM QUIT TOBACCO USE > 7 YE[facility] AGO [facility] [place] [facility] Advance Directives: All historical and current Section Date Range: From patient's date of to the date document was created. This section includes ALL of a patient's completed or amended [place] Advance and Rescinded Directives. The entries below indicate that a directive exists for the patient, but an actual copy is not included with this document. The data comes from all [place] facilities. Date Advance Directives Provider Source Feb 04, 2019 ADVANCE DIRECTIVE CESAR LUA [place] [facility] Encounter Notes: All associated encounter notes This section contains the clinical notes associated to the Encounter. Date/Time Encounter Note(s) Provider Source Jan 07, 2024 03:59 PM CARE COORDINATION HOME TELEHEALTH NOTE: LOCAL TITLE: NOTE STANDARD TITLE: CARE COORDINATION HOME TELEHEALTH NOTE DATE OF NOTE: JAN 07, 2024@15:59 ENTRY DATE: JAN 07, 2024@15:59:34 AUTHOR: TOÑO LORD COSIGNER: URGENCY: STATUS: COMPLETED VEROOSCAR CARL KAROLINA (-[id number]) Vital Sign for: 12/09/2023 - 01/07/2024 (All times are EST; All weights are lbs) Primary DMP: VHA-Wt Mgmt Comorbid(s): DM/HTN Summary Weight Sys BP Krishnamurthy BP HR Glu Pain High 230.0 173 103 80 188 Low 221.5 110 54 47 80 Average 226.4 140 70 62 132 Date Time Wt Time Sys Krishnamurthy HR Time Glu Time Pain 01/07/2024 15:34 228.0 15:33 127/64 60 15:20 165 01/06/2024 08:20 226.5 08:19 156/74 63 08:10 150 01/05/2024 08:21 223.0 08:20 136/69 52 08:05 161 01/03/2024 22:46 227.5 22:45 154/75 60 22:35 100 01/02/2024 21:19 229.5 - 59 21:10 118 2024 16:22 224.0 16:21 129/61 67 16:15 188 12/31/2023 19:36 223.5 - 75 19:33 175 12/30/2023 08:04 229.0 08:03 157/73 62 07:58 90 12/29/2023 - 21:37 156/69 52 - 12/29/2023 21:33 228.5 - - 21:20 131 12/28/2023 21:42 230.0 21:41 173/103 74 21:36 90 12/27/2023 - 22:47 143/75 60 22:40 90 12/26/2023 20:52 228.5 20:50 155/75 57 20:40 160 12/25/2023 10:08 223.0 10:07 143/68 57 10:00 129 12/24/2023 08:12 227.5 08:11 135/73 60 08:02 150 12/23/2023 10:51 227.5 10:50 139/54 64 10:49 131 12/22/2023 22:39 226.5 22:37 132/66 56 22:27 142 12/21/2023 09:20 224.0 09:19 134/66 47 09:10 150 12/20/2023 12:31 221.5 12:29 136/69 55 12:23 147 12/19/2023 19:12 228.0 19:11 163/72 60 19:04 140 12/18/2023 07:47 227.5 07:46 136/98 59 06:30 127 12/17/2023 22:13 224.5 22:11 133/59 73 21:10 150 12/16/2023 - 07:54 137/82 60 07:44 130 12/15/2023 - 17:46 121/60 61 17:45 80 12/14/2023 - 22:53 110/59 65 22:15 115 12/13/2023 - 16:43 126/64 60 16:30 131 12/12/2023 - 21:20 148/73 64 21:10 124 12/11/2023 - 19:16 132/65 80 19:10 115 12/09/2023 - 08:01 120/61 75 08:00 105 Source: [employer]; [employer] Attempted to reach to review above ht results. Noting weight trending upward. [place] is scheduled for TKR 01/08/24. Has been recovering from previous TKR september 2023. Will suspend weight measurement prompt per request due to anticipated intial increased inability to stand on scale after surgery. Will f/u with Andrés accordingly. /skinny/ TOÑO LORD RN [facility]-Home Telehealth Drum Reel Cutter Signed: 01/08/2024 16:06 TOÑO LORD [place] [facility]
--- OUTSIDE RECORDS SUMMARY | 2024-05-29 10:30 | XMS_ITS | Encounter Summary ---
Author Name [facility] [place] [facility] [place] [facility] [place] Address [address] [place] [address] Care Team Providers Care Batt Machine Operator Name Role Phone STACEY HORTON Primary [facility] Insurance Providers: All historical and current Section [...] STAND YON SELF May 29, 2001 [id number] Abdullahi WILEY PATIENT MEDICARE (WNR) MEDICARE (M) PART B Jul 18, 2012 PART B [id number] Abdullahi WILEY PATIENT MEDICARE (WNR) MEDICARE (M) PART B Jul 18, 2012 PART B [id number] Abdullahi WILEY PATIENT MEDICARE (WNR) MEDICARE (M) PART B Jul 18, 2012 PART B [id number] [phone] Abdullahi WILEY PATIENT MEDICARE (WNR) MEDICARE (M) PART A Dec 19, 2011 PART A [id number] Abdullahi WILEY PATIENT MEDICARE (WNR) MEDICARE (M) PART A Dec 19, 2011 PART A [id number] Abdullahi WILEY PATIENT MEDICARE (WNR) MEDICARE (M) PART A Dec 19, 2011 PART A [id number] Abdullahi WILEY PATIENT Selected Encounter This section includes the information on record at [place] for the Encounter. Date/Time Encounter Type Encounter Description Reason Provider Source Dec 05, 2023 10:57 AM OFFICE O/P EST HI 40 MIN ENDOCRINOLOGY ICD-10-CM E11.9 Type 2 diabetes mellitus without complications DEISY VELASCO Afshin Encounter Template Text not used by [place] Assessments - Encounter Diagnoses This section includes the primary and secondary diagnoses documented for the Encounter. Date/Time Primary/Secondary Diagnosis Diagnosis Name Provider Source Dec 05, 2023 11:04 AM PRIMARY Type 2 diabetes mellitus without complications DEISY VELASCO [place] [facility] Plan of Treatment: Future Appointments (+ [...] AM AMBULATORY - NONE [place] [facility] [place] [facility] Dec 31, 2023 08:00 AM AMBULATORY - MEDICINE [place] [facility] Jan 17, 2024 08:00 AM AMBULATORY - MEDICINE [place] [facility] Feb 17, 2024 11:00 AM AMBULATORY - MEDICINE [place] [facility] Mar 05, 2024 01:30 PM AMBULATORY - MEDICINE [place] [facility] Mar 25, 2024 01:00 PM AMBULATORY - MEDICINE [facility] [place] Apr 06, 2024 10:00 AM [facility] Apr 23, 2024 10:45 AM [facility] Apr 29, 2024 10:00 [facility] Jun 01, 2024 11:30 AM AMBULATORY - MEDICINE [facility] Active, Pending, and Scheduled Orders This section includes a listing of several types of active, pending, and scheduled orders, including clinic medications orders, diagnostic test orders, procedure orders and consult orders; where the start date of the order is 45 days before the date of the Encounter or 45 days after the date of theEncounter. The data comes from all [place] treatment facilities. Test Date/Time Test Type Test Details Facility Name Dec 27, 2023 03:51 PM Consult Order [facility]-PHYSICAL THERAPY Cons Peanut Vendor's Choice [facility] Lab Results: +/- 30 days of [...] Range Comment Dec 25, 2023 01:56 PM [place] GLUCOSE, Fingerstick Specimen Type: BLOOD Comment: For GLU FinTest performed by: Crys Slade For GLU Fin Meter #: [id number] Ordering Provider: CRYS SLADE Report Released Date/Time: Dec 25, 2023 03:45 PM Reporting Lab: [address] [address] Performing Lab: [address] [address] GLUCOSE, Fingerstick 143 mg/dL H 65-100 Dec 05, 2023 10:58 AM [facility] HEMOGLOBIN A1C PANEL Specimen Type: BLOOD [...] Sep 04, 2023 12:58 PM Reporting Lab: [facility] [address] [facility] [address] Performing Lab: [address] [address] HEMOGLOBIN A1C 6.0 H 4.0-5.6 Dec 05, 2023 10:58 AM [facility] BASIC METABOLIC PANEL (non-fasting) Specimen Type: SERUM No comment entered. Ordering Provider: DEISY VELASCO Report Released Date/Time: Sep 04, 2023 12:58 PM Reporting Lab: [address] [address] Performing Lab: [address] [address] UREA NITROGEN 19 mg/dL 7-25 GLUCOSE 147 [...] 122/61 16 96 2 71 227 32 [facility] Social History: Smoking Status (Most current) [...] 05, 2023 11:30 AM VA-TOBACCO FORMER USER [facility] Tobacco Use History This section includes a history of the smoking, or tobacco-related health factors, that were collected on or before the date of the Encounter. The data comes from the [place] facility where the Encounter took place. Date/Time Smoking Status/Tobac co Use Comment Facility Apr 05, 2023 11:30 AM VA-TOBACCO QUIT 15 YRS OR MORE [place] [facility] [place] [facility] Dec 28, 2021 09:30 AM VA-TOBACCO FORMER USER [place] [facility] [place] [facility] Dec 28, 2021 09:30 AM VA-TOBACCO QUIT 15 YRS OR MORE [place] [facility] [place] [facility] Dec 02, 2020 09:00 AM VA-TOBACCO FORMER USER [place] [facility] [place] [facility] Dec 02, 2020 09:00 AM VA-TOBACCO QUIT 15 YRS OR MORE [place] [facility] [place] [facility] Aug 18, 2019 03:19 PM VA-TOBACCO FORMER USER [place] [facility] [place] [facility] Aug 18, 2019 03:19 PM VA-TOBACCO QUIT 15 YRS OR MORE [place] [facility] [place] [facility] September 23, 2018 09:58 AM VA-TOBACCO FORMER USER [place] [facility] [place] [facility] September 23, 2018 09:58 AM VA-TOBACCO QUIT 15 YRS OR MORE [place] [facility] [place] [facility] September 30, 2017 09:20 AM QUIT TOBACCO USE > 7 YEARS AGO [place] [facility] [place] [facility] Aug 20, 2016 09:17 AM QUIT TOBACCO USE > 7 YEARS AGO quit 1991 [place] [facility] [facility] Jun 27, 2016 09:45 AM CURRENT SMOKER Quit 25 years ago [place] [facility] [place] [facility] Apr 18, 2015 09:06 AM QUIT TOBACCO USE > 7 YEARS AGO quit in 1991 [place] [facility] Mar 21, 2005 10:12 AM HISTORY OF SMOKING [place] [facility] [place] [facility] Mar 21, 2005 10:12 AM QUIT TOBACCO USE > 7 YEARS AGO [place] [facility] [place] [facility] Advance Directives: All historical and current [...] Feb 04, 2019 ADVANCE DIRECTIVE CESAR LUA [place] [facility] [place] [facility] Encounter Notes: All associated encounter notes This section contains the clinical notes associated to the Encounter. Date/Time Encounter Note(s) Provider Source Dec 05, 2023 10:58 AM PHYSICIAN NOTE: LOCAL TITLE: MD NOTE STANDARD TITLE: PHYSICIAN NOTE DATE OF NOTE: DEC 05, 2023@10:58 ENTRY DATE: DEC 05, 2023@10:58:07 AUTHOR: DEISY VELASCO COSIGNER: URGENCY: STATUS: COMPLETED Dx: Type 2 diabetes mellitus Pt Name: Otoniel Wiley Pt : 1945 MR# [id number] Indication for device placement Date placed: November 22 2023 Date removed (date to which the CPT code is linked): December 05 2023 Name of device placed: Freestyle lynn 3 date of printout of data: Date of interpretation: December 05 2023 Analysis of data (72 hours or more of monitoring required): Capture 87% Average 116 GMI 6.1% %CV 38.5% Very high 0% High 9% In range 73% Low 11% Very low 7% MN 86 4AM 103, 8AM 129, noon 157, 4PM 113, 8PM 117 Variability moderate with some wide excursions Interpretation of data He would benefit from a reduction of all U500 doses /es/ DEISY VELASCO MD STAFF PHYSICIAN Signed: 12/05/2023 11:05 DEISY VELASCO [facility]
--- OUTSIDE RECORDS SUMMARY | 2024-05-29 10:30 | XMS_ITS | Encounter Summary ---
Author Name [facility] [place] Address [address] [place] [address] Care Team Providers Care Hourly Shift Name Role Phone STACEY AGGARWAL Primary Care [...] STAND YON SELF May 29, 2001 104 [id number] [phone] Abdullahi SEVERINO PATIENT MEDICARE (WNR) MEDICARE (M) PART B Jul 18, 2012 PART B [id number] Abdullahi SEVERINO PATIENT MEDICARE (WNR) MEDICARE (M) PART B Jul 18, 2012 PART B [id number] Abdullahi SEVERINO PATIENT MEDICARE (WNR) MEDICARE (M) PART B Jul 18, 2012 PART B [id number] Abdullahi SEVERINO PATIENT MEDICARE (WNR) MEDICARE (M) PART A Dec 19, 2011 PART A [id number] Abdullahi SEVERINO PATIENT MEDICARE (WNR) MEDICARE (M) PART A Dec 19, 2011 PART A [id number] Abdullahi SEVERINO PATIENT MEDICARE (WNR) MEDICARE (M) PART A Dec 19, 2011 PART A [id number] [phone] Abdullahi SEVERINO PATIENT Selected Encounter This section includes the information on record at [place] for the Encounter. Date/Time Encounter Type Encounter Description Reason Pro vider Source Dec 05, 2023 11:48 AM Outpatient Encounter PRIMARY CARE/MEDICINE IHE Encounter Template Text not used by [place] Plan of Treatment: Future Appointments (+ 6 [...] [facility] Dec 26, 2023 10:45 AM AMBULATORY - NONE [place] [facility] [place] [facility] Dec 31, 2023 08:00 AM AMBULATORY - MEDICINE [place] [facility] [place] [facility] Jan 17, 2024 08:00 AM AMBULATORY - MEDICINE [place] [facility] [place] [facility] Feb 17, 2024 11:00 AM AMBULATORY - MEDICINE [place] [facility] [place] [facility] Mar 05, 2024 01:30 PM AMBULATORY - MEDICINE [place] [facility] [place] [facility] Mar 25, 2024 01:00 PM [facility] Apr 06, 2024 10:00 AM AMBULATORY - MEDICINE [place] [facility] [place] [facility] Apr 23, 2024 10:45 AM AMBULATORY - NONE [place] [facility] [place] [facility] Apr 29, 2024 10:00 AM AMBULATORY - MEDICINE [place] [facility] [place] [facility] Jun 01, 2024 11:30 AM AMBULATORY - MEDICINE [facility] Active, Pending, and Scheduled Orders This [...] PM Consult Order COMMUNITY CARE-PHYSICAL THERAPY Cons Paper [employer] [facility] Lab Results: +/- 30 days of [...] Range Comment Dec 25, 2023 01:56 PM [place] GLUCOSE, Fingerstick Specimen Type: BLOOD Comment: For GLU FinTest performed by: Crys Slade For GLU Fin Meter #: [id number] Ordering Provider: CRYS SLADE Report Released Date/Time: Dec 25, 2023 03:45 PM Reporting Lab: [address] [address] Performing Lab: [address] [address] GLUCOSE, Fingerstick 143 mg/dL H 65-100 Dec 05, 2023 10:58 AM [facility] HEMOGLOBIN A1C PANEL Specimen Type: BLOOD [...] Sep 04, 2023 12:58 PM Reporting Lab: [address] [address] Performing Lab: [address] [address] HEMOGLOBIN A1C 6.0 H 4.0-5.6 Dec 05, 2023 10:58 AM [facility] BASIC METABOLIC PANEL (non-fasting) Specimen Type: SERUM No comment entered. Ordering Provider: DEISY VELASCO Report Released Date/Time: Sep 04, 2023 12:58 PM Reporting Lab: [facility] [address] [address] Performing Lab: [facility] [address] [address] [place] NITROGEN 19 mg/dL 7-25 GLUCOSE 147 [...] 122/61 16 96 2 71 227 32 [facility] Social History: Smoking Status (Most [...] took place. Date/Time Current Smoking Status Comment [facility] Apr 05, 2023 11:30 AM VA-TOBACCO FORMER USER [facility] Tobacco Use History This section includes a history of the smoking, or tobacco-related health factors, that were collected on or before the date of the Encounter. The data comes from the [place] facility where the Encounter took place. Date/Time Smoking Status/Tobac co Use Comment Facility Apr 05, 2023 11:30 AM [place]-TOBACCO QUIT 15 YRS OR MORE [facility] Dec 28, 2021 09:30 AM VA-TOBACCO FORMER USER [place] [facility] [place] [facility] Dec 28, 2021 09:30 AM VA-TOBACCO QUIT 15 YRS OR MORE [place] [facility] [place] [facility] Dec 02, 2020 09:00 AM VA-TOBACCO FORMER USER [place] [facility] [place] [facility] Dec 02, 2020 09:00 AM VA-TOBACCO QUIT 15 YRS OR MORE [place] [facility] [place] [facility] Aug 18, 2019 03:19 PM VA-TOBACCO FORMER USER [place] [facility] [place] [facility] Aug 18, 2019 03:19 PM VA-TOBACCO QUIT 15 YRS OR MORE [place] [facility] [place] [facility] September 23, 2018 09:58 AM VA-TOBACCO FORMER USER [place] [facility] [place] [facility] September 23, 2018 09:58 AM VA-TOBACCO QUIT 15 YRS OR MORE [place] [facility] [place] [facility] September 30, 2017 09:20 AM QUIT TOBACCO USE > 7 YEARS AGO [place] [facility] [place] [facility] Aug 20, 2016 09:17 AM QUIT TOBACCO USE > 7 YEARS AGO [facility] [place] [facility] Jun 27, 2016 09:45 AM CURRENT SMOKER Quit 25 years ago [place] [facility] [place] [facility] Apr 18, 2015 09:06 AM QUIT TOBACCO USE > 7 YEARS AGO quit in 1991 [place] [facility] [place] [facility] Mar 21, 2005 10:12 AM H[facility]ORY OF SMOKING [facility] [place] [facility] Mar 21, 2005 10:12 AM QUIT TOBACCO USE > 7 YEARS AGO [facility] Advance Directives: All historical and current Section Date Range: From patient's date of to the date document was created. This section includes ALL of a patient's completed or amended [place] Advance and Rescinded Directives. The entries below indicate that a directive exists for the patient, but an actual copy is not included with this document. The data comes from all [place] facilities. Date Advance Directives Provider Source Feb 04, 2019 ADVANCE DIRECTIVE CESAR LUA [facility] Encounter Notes: All associated encounter notes This section contains the clinical notes associated to the Encounter. Date/Time Encounter Note(s) Provider Source Dec 05, 2023 12:58 PM ADDENDUM: LOCAL TITLE: Addendum STANDARD TITLE: ADDENDUM DATE OF NOTE: DEC 05, 2023@12:58:06 ENTRY DATE: DEC 05, 2023@12:58:07 AUTHOR: ENEIDA WEIR EXP COSIGNER: URGENCY: STATUS: COMPLETED Defer to PCP for renewal of Spironolactone 25mg for mail delivery /skinny/ Eneida Weir MSN RN CNL Primary Care RN Signed: 12/05/2023 12:59 Receipt Acknowledged By: 12/05/2023 13:07 /es/ Stacey Aggarwal DNP, ELECTRONIC TECHNOLOGIST-BC, CNL Primary Care Nurse Practitioner === --- Original Document --- 12/05/23 ADMINISTRATIVE NOTE: SPOKE WITH [facility] FOR A REQUEST FOR REFILLS OF THE MEDICATIONS SPIRONOLACTONE & METOPROLOL.METOPROLOL WAS IN [employer]ETERANS CHART BUT SPIRONOLACTONE WAS NOT.THEY ARE BOTH MEDS TO CONTROL HIGH BLOOD PRESSURE AND DID NOT HAVE BOTTLES PRESENT TO CONFIRM.PLEASE REACH OUT TO AT PROVIDED CALL BACK NUMBER TO HELP CLARIFY. # /skinny/ MALINA PIEDRA Signed: 12/05/2023 12:02 Receipt Acknowledged By: 12/05/2023 13:01 /skinny/ Eneida REGALADO RN CNL Primary Care RN ENEIDA WEIR [place] [facility] [place] [facility] Dec 05, 2023 11:50 AM ADMINISTRATIVE NOTE: LOCAL TITLE: ADMINISTRATIVE NOTE STANDARD TITLE: ADMINISTRATIVE NOTE DATE OF NOTE: DEC 05, 2023@11:50 ENTRY DATE: DEC 05, 2023@11:50:22 AUTHOR: MALINA PARRA EXP COSIGNER: URGENCY: STATUS: COMPLETED ADMINISTRATIVE NOTE Has ADDENDA SPOKE WITH [facility] FOR A REQUEST FOR REFILLS OF THE MEDICATIONS SPIRONOLACTONE & METOPROLOL.METOPROLOL WAS IN VETERANS CHART BUT SPIRONOLACTONE WAS NOT.THEY ARE BOTH MEDS TO CONTROL HIGH BLOOD PRESSURE AND DID NOT HAVE BOTTLES PRESENT TO CONFIRM.PLEASE REACH OUT TO AT PROVIDED CALL BACK NUMBER TO HELP CLARIFY. # /skinny/ MALINA PARRA [facility] Signed: 12/05/2023 12:02 Receipt Acknowledged By: 12/05/2023 13:01 /skinny/ Eneida Weir MSN RN CNL Primary Care RN 12/05/2023 ADDENDUM STATUS: COMPLETED Defer to PCP for renewal of Spironolactone 25mg for mail delivery /skinny/ Eneida Weir MSN RN CNL Primary Care RN Signed: 12/05/2023 12:59 Receipt Acknowledged By: * AWAITING SIGNATURE * STACEY AGGARWAL [facility]
--- OUTSIDE RECORDS SUMMARY | 2024-05-29 10:30 | XMS_ITS | Encounter Summary ---
Author Name [facility] [place] [facility] [place] Address [address] [place] [address] Care Team Providers Care Chief Ophthalmic Technician Name Role Phone STACEY HORTON [facility] Insurance Providers: All historical and [...] STAND YON SELF May 29, 2001 104 [id number] [phone] Abdullahi SEVERINO PATIENT MEDICARE (WNR) MEDICARE (M) PART B Jul 18, 2012 PART B [id number] Abdullahi SEVERINO PATIENT MEDICARE (WNR) MEDICARE (M) PART B Jul 18, 2012 PART B [id number] Abdullahi SEVERINO PATIENT MEDICARE (WNR) MEDICARE (M) PART B Jul 18, 2012 PART B [id number] Abdullahi SEVERINO PATIENT MEDICARE (WNR) MEDICARE (M) PART A Dec 19, 2011 PART A [id number] Abdullahi SEVERINO PATIENT MEDICARE (WNR) MEDICARE (M) PART A Dec 19, 2011 PART A [id number] 96A Abdullahi SEVERINO PATIENT MEDICARE (WNR) MEDICARE (M) PART A Dec 19, 2011 PART A [id number] Abdullahi SEVERINO PATIENT Selected Encounter This section includes the information on record at [place] for the Encounter. Date/Time Encounter Type Encounter Description Reason Provider Source Dec 05, 2023 10:30 AM OFFICE O/P EST HI 40 MIN ENDOCRINOLOGY ICD-10-CM E11.9 Type 2 diabetes mellitus without complications VELASCODEISY Afshin Encounter Template Text not used by [place] Assessments - Encounter Diagnoses This section includes the primary and secondary diagnoses documented for the Encounter. Date/Time Primary/Secondary Diagnosis Diagnosis Name Provider Source Dec 05, 2023 10:54 AM PRIMARY Type 2 diabetes mellitus without complications [facility] [place] [facility] Dec 05, 2023 10:54 AM SECONDARY Chronic kidney disease, stage 1 [facility] [place] [place] [facility] Dec 05, 2023 10:54 AM SECONDARY Essential (primary) hypertension [facility] [place] [facility] Dec 05, 2023 10:54 AM SECONDARY Mixed hyperlipidemia [facility] [place] [facility] Dec 05, 2023 10:54 AM SECONDARY Obesity, unspecified [facility] [place] [facility] Dec 05, 2023 10:54 AM SECONDARY Type 2 diabetes mellitus w diabetic chronic kidney disease [facility] [place] [facility] Plan of Treatment: Future [...] AMBULATORY - NONE [facility] [place] [facility] Dec 31, 2023 08:00 AM AMBULATORY - MEDICINE [facility] [place] [facility] Jan 17, 2024 08:00 AM AMBULATORY - MEDICINE [facility] [place] [facility] Feb 17, 2024 11:00 AM AMBULATORY - MEDICINE [facility] [place] [facility] Mar 05, 2024 01:30 PM AMBULATORY - MEDICINE [facility] [place] [facility] Mar 25, 2024 01:00 PM AMBULATORY - MEDICINE [facility] [place] Apr 06, 2024 10:00 AM AMBULATORY - MEDICINE [place] [facility] Apr 23, 2024 10:45 AM AMBULATORY - NONE [place] [facility] [place] [facility] Apr 29, 2024 10:00 AM AMBULATORY - MEDICINE [place] [facility] [place] [place] [facility] Jun 01, 2024 11:30 AM AMBULATORY - MEDICINE [place] [facility] [place] [place] [facility] Active, Pending, and Scheduled Orders This section includes a listing of several types of active, pending, and scheduled orders, including clinic medications orders, diagnostic test orders, procedure orders and consult orders; where the start date of the order is 45 days before the date of the Encounter or 45 days after the date of theEncounter. The data comes from all [place] treatment facilities. Test Date/Time Test Type Test Details Facility Name Dec 27, 2023 03:51 PM Consult Order COMMUNITY CARE-PHYSICAL THERAPY Cons [facility] [place] [facility] [place] [facility] Lab Results: +/- 30 [...] Range Comment Dec 25, 2023 01:56 PM [place] GLUCOSE, Fingerstick Specimen Type: BLOOD Comment: For GLU FinTest performed by: Crys Slade For GLU Fin Meter #: [id number] Ordering Provider: CRYS SLADE Report Released Date/Time: Dec 25, 2023 03:45 PM Reporting Lab: [address] [address] Performing Lab: [address] [address] GLUCOSE, Fingerstick 143 mg/dL H 65-100 Dec 05, 2023 10:58 AM [facility] HEMOGLOBIN A1C PANEL Specimen Type: BLOOD Comment: Values obtained from A1C measurements can vary. For atypical A1C assays, a reported value of 7.0 could actually be between 6.72 and 7.28 if measured by a reference method. A reported value of 9.0 could actually be between 8.73 and 9.27. Ref: http://www.ngs p.org/CAPdata. asp Ordering Provider: DEISY VELSACO Report Released Date/Time: Sep 04, 2023 12:58 PM Reporting Lab: [facility] [address] [address] Performing Lab: [address] [address] HEMOGLOBIN A1C 6.0 H 4.0-5.6 Dec 05, 2023 10:58 AM [facility] BASIC METABOLIC PANEL (non-fasting) Specimen Type: SERUM No comment entered. Ordering Provider: DEISY VELASCO Report Released Date/Time: Sep 04, 2023 12:58 PM Reporting Lab: [facility] [address] [facility] [address] Performing Lab: [facility] [address] [facility] [address] [place] NITROGEN 19 mg/dL 7-25 GLUCOSE 147 [...] 122/61 16 96 2 71 227 32 [place] [facility] Social History: Smoking Status (Most current) and Tobacco Use (All prior to encounter date) This section includes the most current, and the historical, smoking and tobacco- related health factors from the [place] facility where the Encounter took place. Current Smoking Status This section includes the most current smoking, or tobacco-related health factor, from the [place] facility where the Encounter took place. Date/Time Current Smoking Status Comment Facil it Apr 05, 2023 11:30 AM VA-TOBACCO FORMER USER [place] [place] [facility] Tobacco Use History This section includes a history of the smoking, or tobacco-related health factors, that were collected on or before the date of the Encounter. The data comes from the [place] facility where the Encounter took place. Date/Time Smoking Status/Tobac co Use Comment Facility Apr 05, 2023 11:30 AM VA-TOBACCO QUIT 15 YRS OR MORE [facility] [place] [facility] Dec 28, 2021 09:30 AM VA-TOBACCO FORMER USER [facility] [place] [facility] Dec 28, 2021 09:30 AM VA-TOBACCO QUIT 15 YRS OR MORE [facility] [place] [facility] Dec 02, 2020 09:00 AM VA-TOBACCO FORMER USER [place] [facility] [place] [facility] Dec 02, 2020 09:00 AM VA-TOBACCO QUIT 15 YRS OR MORE [place] [facility] [place] [facility] Aug 18, 2019 03:19 PM VA-TOBACCO FORMER USER [facility] [place] [facility] Aug 18, 2019 03:19 PM VA-TOBACCO QUIT 15 YRS OR MORE [facility] [place] [facility] September 23, 2018 09:58 AM VA-TOBACCO FORMER USER [facility] [place] [facility] September 23, 2018 09:58 AM VA-TOBACCO QUIT 15 YRS OR MORE [place] [facility] [place] [facility] September 30, 2017 09:20 AM QUIT TOBACCO USE > 7 YEARS AGO [place] [facility] [place] [facility] Aug 20, 2016 09:17 AM QUIT TOBACCO USE > 7 YEARS AGO quit 1992 [place] [facility] [place] [facility] Jun 27, 2016 09:45 AM CURRENT SMOKER Quit 25 years ago [facility] Apr 18, 2015 09:06 AM QUIT TOBACCO USE > 7 YEARS AGO quit in 1991 [facility] Mar 21, 2005 10:12 AM HISTORY OF SMOKING [facility] Mar 21, 2005 10:12 AM QUIT TOBACCO USE > 7 YEARS AGO [facility] Advance Directives: All historical and current [...] Feb 04, 2019 ADVANCE DIRECTIVE CESAR LUA [facility] Encounter Notes: All associated encounter notes This section contains the clinical notes associated to the Encounter. 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 He would like to increase Ozempic All endocrine labs were reviewed with the patient. Barriers/s supports for care: Grandson lives with him. Medications for diabetes: Empagliflozin, metformin, Ozempic 0.5 mg U500 95/75/60 BG readings:CGM Hgba1c? HEMOGLOBIN A1C TREND 08/16/2023 07:56 BLOOD 7.3 H 04/25/2023 08:45 BLOOD 6.7 H 01/22/2023 09:03 BLOOD 8.0 H 10/18/2022 10:16 BLOOD 7.7 H 06/22/2022 08:29 BLOOD 8.4 H Weight trend: 244 lbs BMI 34.1 227 lbs now 40 lbs down from 2020 Food insecurity no Pattern of eating throughout the day: Three meals a day. Physical activity: Limited by OA L knee still, surgery planned. Carbohydrate counting: well informed. Episodes of hypoglycemia: late evening and o/n meter warns Hypoglycemia unawareness: no Neuropathy pain: no pain Last eye evaluation: No DR 06/04/2023 Last nephropathy screen MICROALBUMIN Aug 16, 2023@07:56 URINE mALB/Cr: 111.2 H mg/G 0 - 29.9 FindingsCREATININE-EGFR 08/16/23 07:56 1.06 04/25/23 08:45 0.94 01/22/23 09:03 1.07 Statin therapy:Aug 16 2023 CHOL 122 mg/dL <7 - 199 TRIG 399 H mg/dL 0 - 150 HDL 31 L mg/dL 40 - 60 LDL-d 45 mg/dL <55 CAD: yes On asa: yes emergency kit/glucose tabs: Has glucagon kit in dates, grandson knows how to use Active problems - Computerized Problem List is the source for the followin. Exposure to potentially hazardous substance ([facility] [id number]) 2. Knee pain 3. Diabetes mellitus type 2 4. 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 Cancer screening follow up 6. Anxiety 7. Eating disorder 8. Obstructive sleep apnea syndrome 9. Arteriosclerotic heart disease 10. Obesity (SNOMED CT 999721204) 11. Hyperlipidemia (SNOMED CT 90952666) 12. Benign essential hypertension (SNOMED CT 6025331) 13. Venous Insufficiency Active Outpatient Medications (including [...] MOUTH TWICE DAILY GLUCOSE SENSOR FREESTYLE VARUN 3 USE 1 SENSOR DIRECTED ACTIVE EVERY 14 DAYS HYDROCHLOROTHIAZIDE 25MG TAB TAKE ONE TABLET BY MOUTH ONCE ACTIVE DAILY FOR HIGH BLOOD PRESSURE INSULIN CONC REG HUM 500 UNT/ML KWIKPEN INJECT DIRECTED ACTIVE SUBCUTANEOUSLY THREE TIMES A DAY 90 UNITS BREAKFAST, 75 UNITS LUNCH, AND 75 UNITS DINNER. METFORMIN HCL 500MG TAB TAKE ONE TABLET BY MOUTH TWICE ACTIVE DAILY FOR DIABETES METOPROLOL SUCCINATE 25MG SA TAB TAKE ONE TABLET BY MOUTH ACTIVE ONCE DAILY FOR HIGH BLOOD PRESSURE SEMAGLUTIDE 0.25MG/0.375ML INJ PEN 3ML INJECT 0.5MG ACTIVE SUBCUTANEOUSLY ONCE A WEEK FOR TYPE 2 DIABETES MELLITUS Non-VA AMLODIPINE BESYLATE 5MG TAB 5MG BY MOUTH ONCE DAILY ACTIVE Non-VA ASPIRIN 81MG EC TAB 81MG BY MOUTH ONCE DAILY ACTIVE SHX: as above ROS: No cough or fever PE: affect pleasant appropriate speaking easily in full sentences Feet pulses marked decrease sensory to monofilament marked decreased lesions no Medical Decision Making: 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 Insulin orders updated in cprs F/u three mos FTF (Optional) Whole Health Documentation: What matters the most to you? What motivates you to be healthy? (MAP) Response: his grandson /skinny/ DEISY VELASCO MD STAFF PHYSICIAN Signed: 12/05/2023 10:54 DEISY VELASCO [facility]
--- OUTSIDE RECORDS SUMMARY | 2024-05-29 10:30 | XMS_ITS | Encounter Summary ---
Author Name [facility] [place] Organization [place] Address [address] [place] [address] Care Team Providers Care Auxiliary Operator Name Role Phone STACEY AGGARWAL Primary Care [...] STAND YON SELF May 29, 2001 [id number] Abdullahi SEVERINO PATIENT MEDICARE (WNR) MEDICARE (M) PART B Jul 18, 2012 PART B [id number] [phone] Abdullahi SEVERINO PATIENT MEDICARE (WNR) MEDICARE (M) PART B Jul 18, 2012 PART B [id number] Abdullahi SEVERINO PATIENT MEDICARE (WNR) MEDICARE (M) PART B Jul 18, 2012 PART B [id number] Abdullahi SEVERINO PATIENT MEDICARE (WNR) MEDICARE (M) PART A Dec 19, 2011 PART A [id number] Abdullahi SEVERINO PATIENT MEDICARE (WNR) MEDICARE (M) PART A Dec 19, 2011 PART A [id number] Abdullahi SEVERINO PATIENT MEDICARE (WNR) MEDICARE (M) PART A Dec 19, 2011 PART A [id number] Abdullahi SEVERINO PATIENT Selected Encounter This section includes the information on record at [place] for the Encounter. Date/Time Encounter Type Encounter Description Reason Pro vider Source Dec 05, 2023 11:11 AM Outpatient Encounter PRIMARY CARE/MEDICINE IHE Encounter [...] AMBULATORY - NONE [place] [facility] [place] [facility] Dec 31, 2023 08:00 AM AMBULATORY - MEDICINE [facility] [place] [facility] Jan 17, 2024 08:00 AM AMBULATORY - MEDICINE [facility] [place] [facility] Feb 17, 2024 11:00 AM AMBULATORY - MEDICINE [place] [facility] [place] [facility] Mar 05, 2024 01:30 PM AMBULATORY - MEDICINE [facility] C [facility] [place] [facility] Mar 25, 2024 01:00 PM [facility] Apr 06, 2024 10:00 AM AMBULATORY - MEDICINE [facility] C [facility] [place] [facility] Apr 23, 2024 10:45 AM AMBULATORY - NONE [place] [facility] [place] [facility] Apr 29, 2024 10:00 AM AMBULATORY - MEDICINE [facility] C [facility] [place] [facility] Jun 01, 2024 11:30 AM AMBULATORY - MEDICINE [facility] Active, Pending, and Scheduled Orders This section includes a listing of several types of active, pending, and scheduled orders, including clinic medications orders, diagnostic test orders, procedure orders and consult orders; where the start date of the order is 45 days before the date of the Encounter or 45 days after the date of theEncounter. The data comes from all [place] treatment facilities. Test Date/Time Test Type Test Details Facility Name Dec 27, 2023 03:51 PM Consult Order COMMUNITY CARE-PHYSICAL THERAPY Cons [place] [facility] Lab Results: +/- 30 days [...] Range Comment Dec 25, 2023 01:56 PM [place] GLUCOSE, Fingerstick Specimen Type: BLOOD Comment: For GLU FinTest performed by: Crys Slade For GLU Fin Meter #: [id number] Ordering Provider: CRYS SLADE Report Released Date/Time: Dec 25, 2023 03:45 PM Reporting Lab: [address] [address] Performing Lab: [address] [address] GLUCOSE, Fingerstick 143 mg/dL H 65-100 Dec 05, 2023 10:58 AM [facility] HEMOGLOBIN A1C PANEL Specimen Type: [...] Sep 04, 2023 12:58 PM Reporting Lab: [address] [address] Performing Lab: [address] [address] HEMOGLOBIN A1C 6.0 H 4.0-5.6 Dec 05, 2023 10:58 AM [facility] BASIC METABOLIC PANEL (non-fasting) Specimen Type: SERUM No comment entered. Ordering Provider: DEISY VELASCO Report Released Date/Time: Sep 04, 2023 12:58 PM Reporting Lab: [facility] [address] [facility] [address] Performing Lab: [facility] [address] [facility] [address] UREA NITROGEN 19 mg/dL 7-25 GLUCOSE 147 [...] 122/61 16 96 2 71 227 32 [facility] Social History: Smoking Status (Most current) [...] place. Date/Time Current Smoking Status Comment [facility] Apr 05, 2023 11:30 AM VA-TOBACCO FORMER USER [facility] Tobacco Use History This section includes a history of the smoking, or tobacco-related health factors, that were collected on or before the date of the Encounter. The data comes from the [place] facility where the Encounter took place. Date/Time Smoking Status/Tobac co Use Comment Facility Apr 05, 2023 11:[address]-TOBACCO QUIT 15 YRS OR MORE [facility] Dec 28, 2021 09:30 AM VA-TOBACCO FORMER USER [place] [facility] [place] [facility] Dec 28, 2021 09:30 AM VA-TOBACCO QUIT [address] [facility] [place] [facility] Dec 02, 2020 09:00 AM VA-TOBACCO FORMER USER [facility] [place] [facility] Dec 02, 2020 09:00 AM VA-TOBACCO QUIT [address] [facility] [place] [facility] Aug 18, 2019 03:19 PM VA-TOBACCO FORMER USER [place] [facility] [place] [facility] Aug 18, 2019 03:19 PM VA-TOBACCO QUIT [address] [facility] [place] [facility] September 23, 2018 09:58 AM VA-TOBACCO FORMER USER [facility] [place] [facility] September 23, 2018 09:58 AM VA-TOBACCO QUIT [address] [facility] [place] [facility] September 30, 2017 09:20 AM QUIT TOBACCO USE > [address] [facility] [place] [facility] Aug 20, 2016 09:17 AM QUIT TOBACCO USE > 7 YEARS AGO [facility] [place] [facility] Jun 27, 2016 09:45 AM CURRENT SMOKER Quit [address] [facility] [place] [facility] Apr 18, 2015 09:06 AM QUIT TOBACCO USE > 7 YEARS AGO [place] [address] [facility] [place] [facility] Mar 21, 2005 10:12 AM HISTORY OF SMOKING [facility] [place] [facility] Mar 21, 2005 10:12 AM QUIT TOBACCO USE > 7 YEARS AGO [facility] Advance Directives: All historical and current [...] Feb 04, 2019 ADVANCE DIRECTIVE CESAR LUA [facility] Encounter Notes: All associated encounter notes This section contains the clinical notes associated to the Encounter. Date/Time Encounter Note(s) Provider Source Dec 05, 2023 11:11 AM PRIMARY CARE NOTE: LOCAL TITLE: WALK-IN NOTE PRIMARY CARE (T) STANDARD TITLE: PRIMARY CARE NOTE DATE OF NOTE: DEC 05, 2023@11:11 ENTRY DATE: DEC 05, 2023@11:11:42 AUTHOR: MALINA PARRA EXP COSIGNER: URGENCY: STATUS: COMPLETED WALK-IN NOTE PRIMARY CARE (T) Has ADDENDA <====Click to Start Advanced Medical Support presents to the Primary Care clinic with the following request: [ X ]Medication Renewal/Refill METOPROLOL SUCCINATE TAB,SA 25MG [ ]Consultation with Team RN [ ]Symptoms [ ]Other The states they are: [ ]Waiting [ X ]Not Waiting No Walk in visit scheduled with PACT Nurse [ X ] At this encounter the [place]'s demographics were verified. [ X ] At this encounter the 's Insurance information was verified. [ X ] At this encounter the below scheduled visits for the [place] were discussed and appointment reminder card was offered. Future appointments: 12/25/2023 13:00 CWM/SO/DIABETES EDU1 04/06/2024 10:00 CWM/NO/PACT 7 /skinny/ MALINA PIEDRA Signed: 12/05/2023 11:13 Receipt Acknowledged By: 12/05/2023 12:48 /es/ Stacey Aggarwal DNP, DISASTER RECOVERY CONSULTANT-BC, CNL Primary Care Nurse Practitioner 12/05/2023 13:02 /es/ Radha Bustillo MSN RN CNL Primary Care RN 12/05/2023 ADDENDUM STATUS: COMPLETED BY MAIL /eusebio PIEDRA Signed: 12/05/2023 11:49 MALINA PARRA [facility]
--- OUTSIDE RECORDS SUMMARY | 2024-05-29 10:30 | XMS_ITS | Encounter Summary ---
Author Name [facility] [place] Address [address] [place] [address] Care Team Providers Care Senior Property Accountant Name Role Phone STACEY AGGARWAL Primary Care [...] Member ID Insurance Provider's Telephone Number Policy Epna's Name Patient's Relationship to Policy Pena [employer] [place] PREFERRED PROVIDER ORGANIZAT ION (PPO) STAND YON SELF May 29, 2001 [id number] [phone] Abdullahi SEVERINO PATIENT MEDICARE (WNR) MEDICARE (M) PART B Jul 18, 2012 PART B [id number] Abdullahi SEVERINO PATIENT MEDICARE (WNR) MEDICARE (M) PART B Jul 18, 2012 PART B [id number] Abdullahi SEVERINO PATIENT MEDICARE (WNR) MEDICARE (M) PART B Jul 18, 2012 PART B [id number] [phone] Abdullahi SEVERINO PATIENT MEDICARE (WNR) MEDICARE (M) PART A Dec 19, 2011 PART A [id number] [phone] Abdullahi SEVERINO PATIENT MEDICARE (WNR) MEDICARE (M) PART A Dec 19, 2011 PART A [id number] Abdullahi SEVERINO PATIENT MEDICARE (WNR) MEDICARE (M) PART A Dec 19, 2011 PART A [id number] Abdullahi SEVERINO PATIENT Selected Encounter This section includes the information on record at [place] for the Encounter. Date/Time Encounter Type Encounter Description Reason Pro vider Source Dec 27, 2023 03:06 PM Outpatient Encounter ADMIN PAT ACTIVTIES (MASNONCT) IHE [...] Appointment Type Appointme nt Facility Name Dec 31, 2023 08:00 AM AMBULATORY - MEDICINE [place] [facility] Jan 17, 2024 08:00 AM AMBULATORY - MEDICINE [place] [facility] Feb 17, 2024 11:00 AM AMBULATORY - MEDICINE [place] [facility] [place] [place] [facility] Mar 05, 2024 01:30 PM AMBULATORY - MEDICINE [place] [facility] Mar 25, 2024 01:00 PM AMBULATORY - MEDICINE [place] Apr 06, 2024 10:00 AM AMBULATORY - MEDICINE [place] [facility] Apr 23, 2024 10:45 AM AMBULATORY - NONE [place] [facility] [place] [facility] Apr 29, 2024 10:00 AM AMBULATORY - MEDICINE [place] [facility] [place] [facility] Jun 01, 2024 11:30 AM AMBULATORY - MEDICINE [place] [facility] Active, Pending, and Scheduled Orders This section includes a listing of several types of active, pending, and scheduled orders, including clinic medications orders, diagnostic test orders, procedure orders and consult orders; where the start date of the order is 45 days before the date of the Encounter or 45 days after the date of theEncounter. The data comes from all [place] treatment facilities. Test Date/Time Test Type Test Details Facility Name Dec 27, 2023 03:51 PM Consult Order [facility]-PHYSICAL THERAPY Cons Corporate Account[facility] Choice [facility] Lab Results: +/- 30 days of the encounter This section includes the Chemistry and Hematology Lab Results on record with [place] for the patient. Radiology Reports and Pathology Reports are provided separately, in subsequent sections. Lab Results This section contains the Chemistry/Hematology Results that were resulted 30 days before or 30 daysafter the date of the Encounter. Date/Time Source Result Type Result - Unit Interpretation Reference Range Comment Dec 25, 2023 01:56 PM [place] GLUCOSE, Fingerstick Specimen Type: BLOOD Comment: For GLU FinTest performed by: Crys Slade For GLU Fin Meter #: [id number] Ordering Provider: CRYS SLADE Report Released Date/Time: Dec 25, 2023 03:45 PM Reporting Lab: [address] [address] Performing Lab: [address] [address] GLUCOSE, Fingerstick 143 mg/dL H 65-100 Dec 05, 2023 10:58 AM [facility] HEMOGLOBIN A1C PANEL Specimen Type: [...] Sep 04, 2023 12:58 PM Reporting Lab: [facility] [address] [facility] [address] Performing Lab: [address] [address] HEMOGLOBIN A1C 6.0 H 4.0-5.6 Dec 05, 2023 10:58 [facility] BASIC METABOLIC PANEL (non-fasting) Specimen Type: SERUM No comment entered. Ordering Provider: DEISY VELASCO Report Released Date/Time: Sep 04, 2023 12:58 PM Reporting Lab: [facility] [address] [facility] [address] Performing Lab: [facility] [address] [facility] [address] UREA NITROGEN 19 mg/dL 7-25 GLUCOSE 147 [...] took place. Date/Time Current Smoking Status Comment [facility] Apr 05, 2023 11:30 AM VA-TOBACCO FORMER USER [facility] Tobacco Use History This section includes a history of the smoking, or tobacco-related health factors, that were collected on or before the date of the Encounter. The data comes from the [place] facility where the Encounter took place. Date/Time Smoking Status/Tobac co Use Comment Facility Apr 05, 2023 11:30 AM VA-TOBACCO QUIT 15 YRS OR MORE [place] [facility] [place] [facility] Dec 28, 2021 09:30 AM VA-TOBACCO FORMER USER [place] [facility] [place] [facility] Dec 28, 2021 09:30 AM VA-TOBACCO QUIT 15 YRS OR MORE [place] [facility] [place] [facility] Dec 02, 2020 09:00 AM [facility] [place] [facility] Dec 02, 2020 09:00 AM VA-TOBACCO QUIT 15 YRS OR [facility] Aug 18, 2019 03:19 PM VA-TOBACCO FORMER USER [place] [facility] [place] [facility] Aug 18, 2019 03:19 PM VA-TOBACCO QUIT 15 YRS OR MORE [place] [facility] [place] [facility] September 23, 2018 09:58 AM VA-TOBACCO FORMER USER [place] [facility] [place] [facility] September 23, 2018 09:58 AM VA-TOBACCO QUIT 15 YRS OR MORE [facility] September 30, 2017 09:20 AM QUIT TOBACCO USE > 7 YEARS AGO [facility] Aug 20, 2016 09:17 AM QUIT TOBACCO USE > 7 YEARS AGO quit [facility] Jun 27, 2016 09:45 AM CURRENT SMOKER Quit 25 years ago [facility] Apr 18, 2015 09:06 AM QUIT TOBACCO USE > 7 YEARS AGO quit in 1991 [facility] Mar 21, 2005 10:12 AM H[facility]MOKING [facility] Mar 21, 2005 10:12 AM QUIT TOBACCO USE > 7 YEARS AGO [facility] Advance Directives: All historical and current [...] Feb 04, 2019 ADVANCE DIRECTIVE CESAR LUA [place] [facility] Encounter Notes: All associated encounter notes This section contains the clinical notes associated to the Encounter. Date/Time Encounter Note(s) Provider Source Dec 31, 2023 08:55 AM ADDENDUM: LOCAL TITLE: Addendum STANDARD TITLE: ADDENDUM DATE OF NOTE: DEC 31, 2023@08:55:46 ENTRY DATE: DEC 31, 2023@08:55:47 AUTHOR: ROHIT TADEO COSIGNER: URGENCY: STATUS: COMPLETED [place] will have home PT for one week post surgery and then begin outpatient PT at [facility] on 01/17. Will need consult for home PT with [facility]. [facility] reported they will fax H&P to PACT team to review. Alerting PACT to please enter [facility] consult if in agreement with plan. /es/ ROHIT TADEO [facility] POSTMASTER Signed: 12/31/2023 08:58 Receipt Acknowledged By: 12/31/2023 10:45 /es/ Brett Bean, Health Office Machines Teacher ORCHID TRANSPLANTER,PRIMARY CARE 12/31/2023 13:31 /es/ Stacey Aggarwal DNP, DATA ACQUISITION TECHNICIAN-BC, CNL Primary Care Nurse Practitioner 12/31/2023 10:31 /es/ Radha Bustillo MSN RN CNL Primary Care RN === --- Original Document --- 12/27/23 CCC: SCHEDULING ADMINISTRATION: Patient Demographics Patient Name: CARL SEVERINO Patient Primary Phone: [phone] Patient Primary Address: [address] [place] [address] Patient : 1945 Patient Age: 78 Caller/Recipient Relation to Patient: Self Administrative Administrative Note Reason: Other Administrative Note Comments: PT WOULD LIKE A CALL BACK FROM THE PACT TEAM RE CONSULT FOR PHYSICAL HE STATED HE HAS SURGERY SCHEDULED 01/08/24 AND WILL NEED POST OP THERAPY AND WOULD LIKE TO DISCUSS IT FURTHER W/ THE TEAM HE ALSO PROVIDED THE FAX NUMBER FOR O/S FACILITY ATTN: [facility] [phone] /es/ Geovanni AGUILA 1 [facility] AMSA Signed: 12/27/2023 15:06 Receipt Acknowledged By: 12/31/2023 10:18 /es/ Brett Bean, Health Office Machines Teacher ORCHID TRANSPLANTER,PRIMARY CARE 12/27/2023 15:39 /es/ Radha Bustillo MSN RN CNL Primary Care RN 12/27/2023 ADDENDUM STATUS: COMPLETED Talked with Nestor, current consult for [facility] bilateral knee pain. Sunit states he had his last PT visit session covered under that consult today. He has left knee surgery planned for 01/08/24 and would like to continue PT with [facility] afterwards. Consult entered HFS by PCP. /skinny/ Radha Bustillo MSN RN CNL Primary Care RN Signed: 12/27/2023 15:39 12/31/2023 ADDENDUM STATUS: COMPLETED Consult entered HFS by PCP /skinny/ Radha Bustillo MSN RN CNL Primary Care RN Signed: 12/31/2023 10:31 ROHIT TADEO [place] [facility] [facility] [facility] Dec 27, 2023 03:06 PM ADMINISTRATIVE NOTE: LOCAL TITLE: CCC: SCHEDULING ADMINISTRATION STANDARD TITLE: ADMINISTRATIVE NOTE DATE OF NOTE: DEC 27, 2023@15:06:31 ENTRY DATE: DEC 27, 2023@15:06:31 AUTHOR: GEOVANNI RECINOS COSIGNER: URGENCY: STATUS: COMPLETED CCC: SCHEDULING ADMINISTRATION Has ADDENDA Patient Demographics Patient Name: CARL SEVERINO Patient Primary Phone: [phone] Patient Primary Address: [address] [place] [id number] Patient : 1945 Patient Age: 78 Caller/Recipient Relation to Patient: Self Administrative Administrative Note Reason: Other Administrative Note Comments: PT WOULD LIKE A CALL BACK FROM THE PACT TEAM RE CONSULT FOR PHYSICAL HE STATED HE HAS SURGERY SCHEDULED 01/08/24 AND WILL NEED POST OP THERAPY AND WOULD LIKE TO DISCUSS IT FURTHER W/ THE TEAM HE ALSO PROVIDED THE FAX NUMBER FOR O/S FACILITY ATTN: [facility] [phone] /skinny/ Geovanni AGUILA 1 [facility] AMSA Signed: 12/27/2023 15:06 Receipt Acknowledged By: 12/31/2023 10:18 /skinny/ Brett Bean, Health Office Machines Teacher ORCHID TRANSPLANTER,PRIMARY CARE 12/27/2023 15:39 /skinny/ Radha REGALADO RN CNL Primary Care RN 12/27/2023 ADDENDUM STATUS: COMPLETED Talked with Vet, current consult for [facility] bilateral knee pain. Vet states he had his last PT visit session covered under that consult today. He has left knee surgery planned for 01/08/24 and would like to continue PT with [facility] afterwards. Consult entered HFS by PCP. /skinny/ Radha REGALADO RN CNL Primary Care RN Signed: 12/27/2023 15:39 12/31/2023 ADDENDUM STATUS: COMPLETED [place] will have home PT for one week post surgery and then begin outpatient PT at [facility] on 01/17. Will need consult for home PT with [facility]. [facility] reported they will fax H&P to PACT team to review. Alerting PACT to please enter [facility] consult if in agreement with plan. /skinny/ ROHIT TADEO [facility] POSTMASTER Signed: 12/31/2023 08:58 Receipt Acknowledged By: * AWAITING SIGNATURE * BRETT BEAN * AWAITING SIGNATURE * STACEY AGGARWAL 12/31/2023 10:31 /skinny/ Radha REGALADO RN CNL Primary Care RN 12/31/2023 ADDENDUM STATUS: COMPLETED Consult entered HFS by PCP /skinny/ Radha REGALADO RN CNL Primary Care RN Signed: 12/31/2023 10:31 GEOVANNI RECINOS [place] [facility]
--- OUTSIDE RECORDS SUMMARY | 2024-05-29 10:30 | XMS_ITS | Encounter Summary ---
Author Name [facility] [place] Address [address] [place] [address] Care Team Providers Care Investigative Agent Name Role Phone STACEY HORTON Primary Care [...] STAND YON SELF May 29, [phone] [id number] Abdullahi SEVERINO PATIENT MEDICARE (WNR) MEDICARE (M) PART B Jul 18, 2012 PART B [id number] Abdullahi SEVERINO PATIENT MEDICARE (WNR) MEDICARE (M) PART B Jul 18, 2012 PART B [id number] Abdullahi SEVERINO PATIENT MEDICARE (WNR) MEDICARE (M) PART B Jul 18, 2012 PART B [id number] [phone] Abdullahi SEVERINO PATIENT MEDICARE (WNR) MEDICARE (M) PART A Dec 19, 2011 PART A [id number] Abdullahi SEVERINO PATIENT MEDICARE (WNR) MEDICARE (M) PART A Dec 19, 2011 PART A [id number] Abdullahi SEVERINO PATIENT MEDICARE (WNR) MEDICARE (M) PART A Dec 19, 2011 PART A [id number] Abdullahi SEVERINO PATIENT Selected Encounter This section includes the information on record at [place] for the Encounter. Date/Time Encounter Type Encounter Description Reason Pro vider Source Nov 06, 2023 12:00 AM Outpatient Encounter EVENT (HISTORICAL) IHE Encounter Template Text not used by [place] Plan of Treatment: Future Appointments (+ 6 [...] - MEDICINE [place] [facility] [place] [facility] Dec 25, 2023 01:00 PM AMBULATORY - MEDICINE [facility] Dec 26, 2023 10:45 AM AMBULATORY - NONE [place] [facility] [place] [facility] Dec 31, 2023 08:00 AM AMBULATORY - MEDICINE [place] [facility] [place] [facility] Jan 17, 2024 08:00 AM AMBULATORY - MEDICINE [place] [facility] [place] [facility] Feb 17, 2024 11:00 AM AMBULATORY - MEDICINE [place] [facility] [place] [facility] Mar 05, 2024 01:30 PM AMBULATORY - MEDICINE [place] [facility] [place] [facility] Mar 25, 2024 01:00 PM AMBULATORY - MEDICINE [facility] Apr 06, 2024 10:00 AM AMBULATORY - MEDICINE [place] [facility] [place] [facility] Apr 23, 2024 10:45 AM AMBULATORY - NONE [place] [facility] [place] [facility] Apr 29, 2024 10:00 AM AMBULATORY - MEDICINE [facility] Lab Results: +/- 30 days of the [...] Range Comment Dec 05, 2023 10:58 AM [facility] HEMOGLOBIN A1C PANEL Specimen Type: BLOOD [...] Sep 04, 2023 12:58 PM Reporting Lab: [facility] [address] [facility] [address] Performing Lab: [address] [address] HEMOGLOBIN A1C 6.0 H 4.0-5.6 Dec 05, 2023 10:58 AM [facility] BASIC METABOLIC PANEL (non-fasting) Specimen Type: SERUM No comment entered. Ordering Provider: DEISY VELASCO Report Released Date/Time: Sep 04, 2023 12:58 PM Reporting Lab: [facility] [address] [facility] [address] Performing Lab: [address] [address] UREA NITROGEN 19 mg/dL 7-25 GLUCOSE 147 [...] took place. Date/Time Current Smoking Status Comment [facility] Apr 05, 2023 11:30 AM VA-TOBACCO FORMER USER [place] [facility] [place] [facility] Tobacco Use History This section includes a history of the smoking, or tobacco-related health factors, that were collected on or before the date of the Encounter. The data comes from the [place] facility where the Encounter took place. Date/Time Smoking Status/Tobac co Use Comment Facility Apr 05, 2023 11:30 AM VA-TOBACCO QUIT 15 YRS OR MORE [place] [facility] [place] [facility] Dec 28, 2021 09:30 AM VA-TOBACCO FORMER USER [place] [facility] [place] [facility] Dec 28, 2021 09:30 AM VA-TOBACCO QUIT 15 YRS OR MORE [place] [facility] [place] [facility] Dec 02, 2020 09:00 AM VA-TOBACCO FORMER USER [place] [facility] [place] [facility] Dec 02, 2020 09:00 AM VA-TOBACCO QUIT 15 YRS OR MORE [place] [facility] [place] [facility] Aug 18, 2019 03:19 PM VA-TOBACCO FORMER USER [place] [facility] [place] [facility] Aug 18, 2019 03:19 PM VA-TOBACCO QUIT 15 YRS OR MORE [place] [facility] [place] [facility] September 23, 2018 09:58 AM VA-TOBACCO FORMER USER [place] [facility] [place] [facility] September 23, 2018 09:58 AM VA-TOBACCO QUIT 15 YRS OR MORE [place] [facility] [place] [facility] September 30, 2017 09:20 AM QUIT TOBACCO USE > 7 YEARS AGO [facility] [place] [facility] Aug 20, 2016 09:17 AM QUIT TOBACCO USE > 7 YEARS AGO quit 1992 [place] [facility] [place] [facility] Jun 27, 2016 09:45 AM CURRENT SMOKER Quit 25 years ago [facility] [place] [facility] Apr 18, 2015 09:06 AM QUIT TOBACCO USE > 7 YEARS AGO quit in 1991 [facility] Mar 21, 2005 10:12 AM HISTORY OF SMOKING [facility] Mar 21, 2005 10:12 AM QUIT TOBACCO USE > 7 YEARS AGO [facility] Advance Directives: All historical and current [...] Feb 04, 2019 ADVANCE DIRECTIVE CESAR LUA [facility] Encounter Notes: All associated encounter notes This section contains the clinical notes associated to the Encounter. Date/Time Encounter Note(s) Provider Source Nov 06, 2023 12:00 AM NONVA NOTE: LOCAL TITLE: NON-VA OUTPATIENT NOTES STANDARD TITLE: NONVA NOTE DATE OF NOTE: NOV 06, 2023 ENTRY DATE: NOV 27, 2023@08:02:52 AUTHOR: ENE GUEVARA EXP COSIGNER: URGENCY: STATUS: COMPLETED VistA Imaging - Scanned Document SCANNED DOCUMENT SIGNATURE NOT REQUIRED Electronically Filed: 11/27/2023 by: ENE THOMSON [facility]
--- OUTSIDE RECORDS SUMMARY | 2024-05-29 10:30 | XMS_ITS | Encounter Summary ---
Author Name [facility] [place] Organization [facility] [place] Address [address] [place] [id number] Care Team Providers Care Haircutter Name Role Phone STACEY AGGARWAL Primary Care [...] STAND YON SELF May 29, 2001 104 [id number] bAdullahi SEVERINO PATIENT MEDICARE (WNR) MEDICARE (M) PART B Jul 18, 2012 PART B [id number] [phone] Abdullahi SEVERINO PATIENT MEDICARE (WNR) MEDICARE (M) PART B Jul 18, 2012 PART B [id number] [phone] Abdullahi SEVERINO PATIENT MEDICARE (WNR) MEDICARE (M) PART B Jul 18, 2012 PART B [id number] Abdullahi SEVERINO PATIENT MEDICARE (WNR) MEDICARE (M) PART A Dec 19, 2011 PART A [id number] Abdullahi SEVERINO PATIENT MEDICARE (WNR) MEDICARE (M) PART A Dec 19, 2011 PART A [id number] [phone] Abdullahi SEVERINO PATIENT MEDICARE (WNR) MEDICARE (M) PART A Dec 19, 2011 PART A [id number] [phone] Abdullahi SEVERINO PATIENT Selected Encounter This section includes the information on record at [place] for the Encounter. Date/Time Encounter Type Encounter Description Reason Provider Source Dec 25, 2023 01:00 PM DIAB MANAGE TRN PER INDIV DIABETES CLINIC ICD-10-CM E11.9 Type 2 diabetes mellitus without complications IBRAHIMA SLADE Afshin Encounter Template Text not used by [place] Assessments - Encounter Diagnoses This section includes the primary and secondary diagnoses documented for the Encounter. Date/Time Primary/Secondary Diagnosis Diagnosis Name Provider Source Dec 25, 2023 02:39 PM PRIMARY Type 2 diabetes mellitus without complications CRYS SLADE [place] Plan of Treatment: Future Appointments (+ 6 months) and Future Tests (+/- 45 days) The Plan of Treatment section includes future care activities for the patient [facility] [place] [facility] This section includes future appointments and future orders which are active, pending or scheduled. Future Appointments This section includes appointments that were scheduled to occur 6 months from the date of the Encounter, up to a maximum of 20 appointments. The data comes from all [place] treatment facilities. Appointment Date/Time Appointment Type Appointme nt Facility Name Dec 26, 2023 10:45 AM AMBULATORY - NONE [place] [facility] [place] [facility] Dec 31, 2023 08:00 AM AMBULATORY - MEDICINE [place] [facility] [place] [facility] Jan 17, 2024 08:00 AM AMBULATORY - MEDICINE [place] [facility] [place] [facility] Feb 17, 2024 11:00 AM AMBULATORY - MEDICINE [place] [facility] [place] [facility] Mar 05, 2024 01:30 PM AMBULATORY - MEDICINE [place] [facility] [place] [facility] Mar 25, 2024 01:00 PM [facility]UL[facility] Apr 06, 2024 10:00 AM AMBULATORY - MEDICINE [place] [facility] [place] [facility] Apr 23, 2024 10:45 AM [facility] Apr 29, 2024 10:00 AM [facility] Jun 01, 2024 11:30 AM AMBULATORY - MEDICINE [facility] Active, Pending, and Scheduled Orders This [...] PM Consult Order COMMUNITY CARE-PHYSICAL THERAPY Cons Tubular [facility] Lab Results: +/- 30 days of the encounter This section includes the Chemistry and Hematology Lab Results on record with [place] for the patient. Radiology Reports and Pathology Reports are provided separately, in subsequent sections. Lab Results This section contains the Chemistry/Hematology Results that were resulted 30 days before or 30 daysafter the date of the Encounter. Date/Time Source Result Type Result - Unit Interpretation Reference Range Comment Dec 25, 2023 01:56 PM [place] GLUCOSE, Fingerstick Specimen Type: BLOOD Comment: For GLU FinTest performed by: Crys Slade For GLU Fin Meter #: [id number] Ordering Provider: CRYS SLADE Report Released Date/Time: Dec 25, 2023 03:45 PM Reporting Lab: [address] [address] Performing Lab: [address] [address] GLUCOSE, Fingerstick 143 mg/dL H 65-100 Dec 05, 2023 10:58 AM [facility] HEMOGLOBIN A1C PANEL Specimen [...] Sep 04, 2023 12:58 PM Reporting Lab: [facility] [address] [facility] [address] Performing Lab: [facility] [address] [facility] [address] HEMOGLOBIN A1C 6.0 H 4.0-5.6 Dec 05, 2023 10:58 AM [facility] BASIC METABOLIC PANEL (non-fasting) Specimen Type: SERUM No comment entered. Ordering Provider: DEISY VELASCO Report Released Date/Time: Sep 04, 2023 12:58 PM Reporting Lab: [facility] [address] [facility] [address] Performing Lab: [address] [address] UREA NITROGEN 19 mg/dL 7-25 GLUCOSE 147 [...] Feb 04, 2019 ADVANCE DIRECTIVE CESAR LUA [facility] Encounter Notes: All associated encounter notes This section contains the clinical notes associated to the Encounter. Date/Time Encounter Note(s) Provider Source Dec 25, 2023 02:42 PM DIABETOLOGY NOTE: LOCAL TITLE: INSULIN PUMP/CGM DOWNLOAD (T) STANDARD TITLE: DIABETOLOGY NOTE DATE OF NOTE: DEC 25, 2023@14:42 ENTRY DATE: DEC 25, 2023@14:42:54 AUTHOR: CRYS SLADE EXP COSIGNER: URGENCY: STATUS: COMPLETED Please select: Personal Continuous Glucose Monitor Date of Documentation:Dec Please see attached scanned document in [employer]. DX: Type 2 diabetes Sensor: Bhargav 3 /es/ CRYS SLADE, RN,BSN, [facility] DIABETES TAXATION ECONOMIST, RN Signed: 12/25/2023 14:43 CRYS SLADE [place] Dec 25, 2023 01:11 PM PHARMACY COUNSELIN G NOTE: LOCAL TITLE: DIABETES CLINIC FOLLOW UP NOTE STANDARD TITLE: PHARMACY COUNSELING NOTE DATE OF NOTE: DEC 25, 2023@13:11 ENTRY DATE: DEC 25, 2023@13:12:04 AUTHOR: CRYS SLADE EXP COSIGNER: URGENCY: STATUS: COMPLETED FOLLOW UP DIABETES EDUCATION VISIT Demographics: Patient Name: PATRICA SEVERINO Age: 78 Sex: MALE Race: WHITE MARITAL STATUS - NEVER Introduction: identified with 2 identifiers: [X] Full Name [X] Date of [ ] Address [ ] [place] ID Card PATIENT PHONE - PHONE NUMBER [CELLULAR] - Is patient phone number correct, if not, enter below: Sims's phone number: PATRICA SEVERINO [address], [place], [address] MOST RECENT LABS: HEMOGLOBIN A1C TREND Collection DT Spec HGBA1c 12/05/2023 10:58 BLOOD 6.0 H 08/16/2023 07:56 BLOOD 7.3 H 04/25/2023 08:45 BLOOD 6.7 H 01/22/2023 09:03 BLOOD 8.0 H 10/18/2022 10:16 BLOOD 7.7 H CHEM 7 TREND LAB CUMULATIVE SELECTED Collection DT Spec GLUCOSE BUN CREATIN Sodium K+/Pot CL CO2 12/05/2023 10:58 SERUM 147 H 19 0.92 136 4.6 104 23 08/16/2023 07:56 SERUM 162 H 17 1.06 139 4.1 104 24 04/25/2023 08:45 SERUM 89 21 0.94 140 4.0 106 25 01/22/2023 09:03 SERUM 178 H 26 H 1.07 136 4.2 101 23 10/18/2022 10:16 SERUM 119 H 15 0.83 140 4.3 106 22 Collection DT Spec eGFR 03/01/2009 08:58 SERUM >60 03/09/2008 11:19 SERUM >60 LAB CUMULATIVE SELECTED 2 No selection items chosen for this component. CHEM 7 Results Collection DT Spec Sodium K+/Pot CL CO2 GLUCOSE BUN eGFR 12/05/2023 10:58 SERUM 136 4.6 104 23 147 H 19 08/16/2023 07:56 SERUM 139 4.1 104 24 [...] 51 Reflex to dLDL 409 H CREATININE-EGFR 12/05/23 10:58 0.92 08/16/23 07:56 1.06 04/25/23 08:45 0.94 EGFR - NONE FOUND WEIGHT: 227 lb [102.97 kg] (12/05/2023 10:15) HEIGHT: 71 in [180.3 cm] (12/05/2023 10:15) BMI: 31.7 ___ REASON FOR VISIT: Type 2 diabetes, being treated with U500 concentrated insulin. Now taking Ozempic 1.0 mg once a week (Saturday). Has been on current dose for 2 weeks. No side effects except slight diarrhea. Had right knee replacement surgery on October 13. Having another knee replacement surgery on January 07 for the left knee. Behavior health goals set at previous visit: Continue taking doses of U500 insulin and continue to wear the Bhargav sensor to check blood sugars. Clinical or Quality of Life outcome goal set at last visit: Diabetes Distress Support: How would you rate [...] LABELING- BENEFITS OF WEIGHT LOSS- PHYSICAL ACTIVITY Going for another knee replacement surgery for the other knee (left side) in December. Services utilized during the past year Clinic visit/primary care provider- Nutrition/dietitian- not recently. Podiatry- goes to [facility] Eye exam- May 2023, goes to [facility] Lab tests- done in November. Dental- Vaccines- had flu vaccine, has not had COVID vaccine. Comments: BLOOD GLUCOSE MONITORING Downloaded 's Bhargav 3 guest services attendant in clinic today: Name: patrica SEVERINO Date of : 1945 Report Period: 11/28/2023 - 12/25/2023 (28 days) Generated: 12/25/2023 % Time CGM Active: 84% Glucose Statistics and Targets Average Glucose: 134 mg/dL Glucose Management Indicator (GMI): 6.5% Glucose Variability (%CV): 38.3% Target Range: 70 - 180 mg/dL Time in Ranges Very High: >250 mg/dL --- 3% High: 181 - 250 mg/dL --- 15% Target Range: 70 - 180 mg/dL --- 74% Low: 54 - 69 mg/dL --- 7% Very Low: <54 mg/dL --- 1% The main trend noted are lower glucose between the following time frames: 12 am until 8 am and again between 6 pm until 12 am. The average glucose is below 180 mg/dl for most of the day and when glucose is elevated the times vary. Meter download from today: Name: PATRICA SEVERINO : 1945 ID: [id number] Information from [employer] [facility] on 12/25/2023 Patient Name: PATRICA SEVERINO Date Range: 09/27/2023 - 12/25/2023 bG values are displayed in mg/dL # of tests 83 Average 171 SD 57.5 Highest 344 Lowest 68 Avg tests/day 0.9 # HI 0 # LO 0 <70 2.4% 70-140 28.9% >140 68.7% Hypos(<50) 0 Date Range: 09/27/2023 - 12/25/2023 bG values are displayed in mg/dL 00:00- 05:30- 08:00- 11:00- 12:30- 17:00- 18:30- 21:30- 05:30 08:00 11:00 12:30 17:00 18:30 21:30 00:00 Sat09/27/2023 151 275 107 09/28/2023 193 Jody 10/24/2023 243 Sat10/25/2023 171 117 10/26/2023 178 10/27/2023 158 10/28/2023 193 Tu10/29/2023 68 Sat10/30/2023 216 105 Jody 10/31/2023 251 136 Sat11/01/2023 149 11/02/2023 200 128 11/03/2023 139 229 11/04/2023 160 204 11/05/2023 200 133 11/06/2023 165 Jody 11/07/2023 140 11/08/2023 190 11/09/2023 188 11/10/2023 210 188 68 Mon 11/11/2023 148 196 11/12/2023 153 11/13/2023 166 201 Jody 11/14/2023 97 110 11/15/2023 163 91 11/16/2023 195 142 11/17/2023 200 179 85 Mon 11/18/2023 159 11/19/2023 173 196 181 11/20/2023 115 Jody 11/21/2023 198 220 11/22/2023 117 11/24/2023 122 222 11/25/2023 90 11/26/2023 163 11/27/2023 344 99 Jody 11/28/2023 165 11/29/2023 206 169 146 11/30/2023 242 12/01/2023 169 12/02/2023 184 12/09/2023 104 193 12/10/2023 101 331 12/11/2023 142 115 Jody 12/12/2023 209 124 12/14/2023 200 115 12/15/2023 338 12/16/2023 130 281 12/17/2023 208 12/18/2023 127 12/23/2023 284 12/24/2023 157 Date Range: 09/27/2023 - 12/25/2023 bG values are displayed in mg/dL 00:00- 05:30- 08:00- 11:00- 12:30- 17:00- 18:30- :30- 05:30 08:00 11:00 12:30 17:00 18:30 21:30 00:00 # of tests 0 16 26 3 15 4 15 4 Average 0 150 172 230 196 121 170 173 SD 33.4 39 99.9 69.7 41.5 60.7 107.3 Hi/Lo 0 0 0 0 0 0 0 0 Date Range: 09/27/2023 - 12/25/2023 bG values are displayed in mg/dL 09/27/2023 7:16 AM 151 12:39 PM 275 4:31 PM 107 09/28/2023 8:15 AM 193 10/24/2023 8:35 PM 243 10/25/2023 9:04 AM 171 5:47 PM 117 [...] 10:11 AM 165 11/07/2023 8:13 AM 140 11/08/2023 7:08 AM 190 11/09/2023 9:55 AM 188 11/10/2023 10:40 AM 210 12:21 PM 188 5:26 PM 68 11/11/2023 8:47 AM 148 3:42 PM 196 11/12/2023 9:58 AM 153 11/13/2023 9:03 AM 166 9:03 PM 201 11/14/2023 6:53 AM 97 4:55 PM 110 11/15/2023 6:16 AM 163 12:36 PM 91 11/16/2023 8:08 AM 195 8:56 PM 142 11/17/2023 5:54 AM 200 1:36 PM 179 7:32 PM 85 11/18/2023 6:56 AM 159 11/19/2023 7:11 AM 173 4:57 PM 196 8:42 PM 181 11/20/2023 6:48 AM 115 11/21/2023 8:02 AM 198 2:53 PM 220 11/22/2023 8:29 AM 117 11/24/2023 7:26 AM 122 6:58 PM 222 11/25/2023 7:39 PM 90 11/26/2023 10:10 AM 163 11/27/2023 12:01 PM 344 9:44 PM 99 11/28/2023 1:05 PM 165 11/29/2023 8:26 AM 206 6:03 PM 169 10:19 PM 146 11/30/2023 4:11 PM 242 12/01/2023 7:35 AM 169 12/02/2023 9:30 AM 184 12/09/2023 7:50 AM 104 8:12 PM 193 12/10/2023 9:40 AM 101 10:44 PM 331 12/11/2023 9:36 AM 142 7:11 PM 115 12/12/2023 6:27 AM 209 9:15 PM 124 12/14/2023 9:54 AM 200 9:46 PM 115 12/15/2023 2:06 PM 338 12/16/2023 7:43 AM 130 1:48 PM 281 12/17/2023 8:33 AM 208 12/18/2023 7:28 AM 127 12/23/2023 8:57 PM 284 12/24/2023 8:32 AM 157 End of information from [employer] [facility] [employer] Download from October of 2023: Name: Patrica SEVERINO Date of : 1945 Report Period: [...] low glucose for the last 30 days. Used the sensor during the month of [...] hours of 12 am until 6 am. DIABETES MEDICATIONS: U500 insulin before meals (3x/day): 85-85-75 units Sometimes he does not take a dose if his glucose is low (below 80 mg/dl) Empagliflozin 25 mg, 1 tab once a day. Metformin 500 mg, 1 tab twice a day. Semaglutide 1.0 mg once a week. ADMINISTERS VIA pen STORAGE OF INSULIN/OTHER INJECTABLES: INJECTIONS SITES: legs SITES VIEWED: No ANY EVIDENCE OF LIPOHYPERTROPHY HYPOGLYCEMIA Download of sensor reveals 8% of low glucose. We question the accuracy of the sensor, however, his A1C is consistent with the sensor information. His meter does not indicate low glucose during the night or while is sleeping and Sims admits he does not always wake up and check his glucose when the sensor is low. He also does not report having symptoms of hypoglycemia. CAUSES/SYMPTOMS: shaky, zoning out, needs to eat TREATMENT/PREVENTION: glass of milk with peanut butter pretzels or 4-5 Oreo cookies. MEDIC ID/ HAS ONE: No, interested in a bracelet GLUCAGON: Yes, his adopted son DRIVING SAFETY: Reviewed HYPERGLYCEMIA ASSESSMENT: Kindly referred by Dr. Velasco. Being treated with U500 insulin, in addition to Freestyle Bhargav 3 sensor. Last A1C was 6.0% in November. Destiney questions how accurate the sensor is since the sensor is reading lower blood sugars quite frequently and his meter does not reveal any recent hypoglycemia. His A1C however, is consistent with the sensor download. Destiney does report sleeping on his left arm and he is wearing the sensor on his left arm. The lower readings are occurring overnight while he is sleeping and it does wake him up often. He questions if he can turn off the alerts. We recommended that he keep on the low alerts and he can shut off the other alerts. Destiney will return in 3 months, however, in the meantime, he plans to drop his dose of U500 by 5 units at each meal so his dose is now: 80-80-70 units before meals instead of 85-85-75 units before meals. Destiney has noticed a decrease in his appetite since his dose of Ozempic was increased to 1.0 mg once a week. He has been on this dose for only 2 weeks. No other changes were made. scheduled to see Dr. Velasco in February. Behavioral goal 1 met: 100% of the [...] Covered & Assessment: 12/05/22; 04/03/23; 08/07/23; 11/20/23; 12/25/23; Healthy Eating (Describe effect of type, amount and timing of food on blood glucose; list 3 methods for planning meals) Dates Covered & Assessment: 12/05/22; 04/03/23; 08/07/23; 11/20/23; 12/25/23; Being Active (State effect of exercise on blood glucose levels) Dates Covered & Assessment: 12/05/22; 04/03/23; 08/07/23; 11/20/23; 12/25/23; Taking Medication (State effect of diabetes medicines on diabetes; name diabetes medication taking, action and side effects) Dates Covered & Assessment: 12/05/22; 04/03/23; 08/07/23; 11/20/23; 12/25/23; Monitoring Glucose (Identify recommended blood glucose targets and personal targets) Dates Covered & Assessment: 12/05/22; 04/03/23; 08/07/23; 11/20/23 (reviewed Bhargav 3); 12/25/23; Acute Complications (List symptoms and treatment of hyper- and hypoglycemia, DKA, sick day guidelines and guidelines for severe weather or situation crisis and diabetes supply management) Dates Covered & Assessment: 12/05/22; 04/03/23; 08/07/23; 11/20/23; 12/25/23; Chronic Complications (Define the relationship of blood glucose levels to halfway complications of diabetes and screening and preventative measures) Dates Covered & Assessment: 12/05/22; 04/03/23; 08/07/23; 11/20/23; 12/25/23; Lifestyle and Healthy Coping (Describe life style and healthy coping strategies to promote diabetes self-management) Dates Covered & Assessment: - 12/05/22; - 04/03/23; - 08/07/23; - 11/20/23; - 12/25/23; Diabetes Distress and Support (Recognize diabetes Distress and be able to identify support options) Dates Covered & Assessment: - 12/05/22; - 04/03/23; - 08/07/23; - 11/20/23; - 12/25/23; HEALTH GOAL #1: In order to meet this goal, I will: Continue using the Bhargav 3 sensor to check glucose. HEALTH GOAL #2: In order to meet this goal, I will: Decrease U500 insulin to: 80-80-70 units before meals. Clinical or Quality of Life outcome baseline: FUTURE APPOINTMENTS: 12/26/2023 10:45 CWM/NO/NUTRITION 03/05/2024 13:30 NHM/ENDOCRINE 04/06/2024 10:00 CWM/NO/PACT 7 DM type is : Type 2 diabetes Length of Visit: 60 minutes /es/ CRYS SLADE, RN,BSN, [facility] DIABETES TAXATION ECONOMIST, RN Signed: 12/25/2023 14:39 Receipt Acknowledged By: 12/25/2023 16:26 /es/ DEISY VELASCO MD STAFF PHYSICIAN 12/25/2023 14:51 /es/ Stacey Aggarwal DNP, HVAC SHEET METAL INSTALLER HELPER-BC, CNL Primary Care Nurse Practitioner CRYS SLADE
--- OUTSIDE RECORDS SUMMARY | 2024-05-29 10:30 | XMS_ITS | Encounter Summary ---
Author Name [facility] [place] Address [address] [place] [address] Care Team Providers Care Funeral Attendant Name Role Phone STACEY HORTON Primary Care [...] STAND YON SELF May 29, [phone] [id number] Abdullahi SEVERINO PATIENT MEDICARE (WNR) MEDICARE (M) PART B Jul 18, 2012 PART B [id number] [phone] Abdullahi SEVERINO PATIENT MEDICARE (WNR) MEDICARE (M) PART B Jul 18, 2012 PART B [id number] Abdullahi SEVERINO PATIENT MEDICARE (WNR) MEDICARE (M) PART B Jul 18, 2012 PART B [id number] [phone] Abdullahi SEVERINO PATIENT MEDICARE (WNR) MEDICARE (M) PART A Dec 19, 2011 PART A [id number] Abdullahi SEVERINO PATIENT MEDICARE (WNR) MEDICARE (M) PART A Dec 19, 2011 PART A [id number] [phone] Abdullahi SEVERINO PATIENT MEDICARE (WNR) MEDICARE (M) PART A Dec 19, 2011 PART A [id number] [phone] Abdullahi SEVERINO PATIENT Selected Encounter This section includes the information on record at [place] for the Encounter. Date/Time Encounter Type Encounter Description Reason Pro vider Source Jan 02, 2024 12:43 PM Outpatient Encounter ADMIN PAT ACTIVTIES (MASNONCT) IHE Encounter Template Text not used by [place] Plan of Treatment: Future Appointments (+ 6 [...] - MEDICINE [place] [facility] Feb 17, 2024 11:00 AM AMBULATORY - MEDICINE [place] [facility] Mar 05, 2024 01:30 PM AMBULATORY - MEDICINE [place] [facility] Mar 25, 2024 01:00 PM [facility] Apr 06, 2024 10:00 AM AMBULATORY - MEDICINE [place] [facility] Apr 23, 2024 10:45 AM AMBULATORY - NONE [place] [facility] Apr 29, 2024 10:00 AM AMBULATORY - MEDICINE [place] [facility] Jun 01, 2024 11:30 AM AMBULATORY - MEDICINE [place] [facility] Active, Pending, and Scheduled Orders [...] Dec 27, 2023 03:51 PM Consult Order [facility]-PHYSICAL THERAPY Cons Field Hockey Coach's Choice [facility]RE[facility] Lab Results: +/- 30 days of [...] Range Comment Dec 25, 2023 01:56 PM [place] GLUCOSE, Fingerstick Specimen Type: BLOOD Comment: For GLU FinTest performed by: Crys Slade For GLU Fin Meter #: [id number] Ordering Provider: CRYS SLADE Report Released Date/Time: Dec 25, 2023 03:45 PM Reporting Lab: [address] [address] Performing Lab: [address] [address] GLUCOSE, Fingerstick 143 mg/dL H 65-100 Dec 05, 2023 10:58 AM [facility] HEMOGLOBIN A1C PANEL Specimen Type: BLOOD Comment: [...] Sep 04, 2023 12:58 PM Reporting Lab: [facility] [address] [address] Performing Lab: [facility] [address] [address] HEMOGLOBIN A1C 6.0 H 4.0-5.6 Dec 05, 2023 10:58 AM [facility] BASIC METABOLIC PANEL (non-fasting) Specimen Type: SERUM No comment entered. Ordering Provider: DEISY VELASCO Report Released Date/Time: Sep 04, 2023 12:58 PM Reporting Lab: [facility] [place] [facility] [address] [address] Performing Lab: [place] [facility] [address] [address] UREA NITROGEN 19 mg/dL 7-25 GLUCOSE 147 [...] took place. Date/Time Current Smoking Status Comment [facility] Apr 05, 2023 11:30 AM VA-TOBACCO FORMER USER [facility] Tobacco Use History This section includes a history of the smoking, or tobacco-related health factors, that were collected on or before the date of the Encounter. The data comes from the [place] facility where the Encounter took place. Date/Time Smoking Status/Tobac co Use Comment Facility Apr 05, 2023 11:30 AM VA-TOBACCO QUIT 15 YRS OR MORE [place] [facility] Dec 28, 2021 09:30 AM VA-TOBACCO FORMER USER [place] [facility] Dec 28, 2021 09:30 AM VA-TOBACCO QUIT 15 YRS OR MORE [place] [facility] Dec 02, 2020 09:00 AM VA-TOBACCO FORMER USER [place] [facility] Dec 02, 2020 09:00 AM VA-TOBACCO QUIT 15 YRS OR MORE [place] [facility] Aug 18, 2019 03:19 PM VA-TOBACCO FORMER USER [place] [facility] Aug 18, 2019 03:19 PM VA-TOBACCO QUIT 15 YRS OR MORE [facility] September 23, 2018 09:58 AM VA-TOBACCO FOR[facility] September 23, 2018 09:58 AM VA-TOBACCO QUIT 15 YRS OR MORE [facility] September 30, 2017 09:20 AM QUIT TOBACCO USE > 7 YEARS AGO [facility] Aug 20, 2016 09:17 AM QUIT TOBACCO USE > 7 YEARS AGO quit 1991 [facility] Jun 27, 2016 09:45 AM CURRENT SMOKER Quit 25 years ago [facility] Apr 18, 2015 09:06 AM QUIT TOBACCO USE > 7 YEARS AGO quit in 1991 [facility] Mar 21, 2005 10:12 AM [facility]MO[facility] Mar 21, 2005 10:12 AM QUIT TOBACCO USE > 7 YEARS AGO [facility] Advance Directives: All historical [...] Feb 04, 2019 ADVANCE DIRECTIVE CESAR LUA [facility] Encounter Notes: All associated encounter notes This section contains the clinical notes associated to the Encounter. Date/Time Encounter Note(s) Provider Source Jan 02, 2024 12:43 PM ADMINISTRATIVE NOT E: LOCAL TITLE: CCC: SCHEDULING ADMINISTRATION STANDARD TITLE: ADMINISTRATIVE NOTE DATE OF NOTE: JAN 02, 2024@12:43:44 ENTRY DATE: JAN 02, 2024@12:43:44 AUTHOR: OSIRIS MURILLO COSIGNER: URGENCY: STATUS: COMPLETED CCC: SCHEDULING ADMINISTRATION Has ADDENDA Patient Demographics Patient Name: CARL SEVERINO Patient Primary Phone: [phone] Patient Primary Address: [address] [place] [address] Patient : [id number] Patient Age: 79 Call Back Number: [phone] Caller/Recipient Relation to Patient: Self Administrative Administrative Note Reason: Other Administrative Note Comments: [place] is calling in today to make sure that everything is in order for his upcoming procedure. Please return his to discuss this with him. Thank you. IMPORTANT: This note was created by [facility] Clinical Contact Center staff. Please do not alert the staff member by adding them as a signer for future communications. Alerts are not monitored by this user. /skinny/ OSIRIS MURILLO VISN [facility] Signed: 01/02/2024 12:43 Receipt Acknowledged By: 01/06/2024 08:58 /es/ Brett Biggs, Health [employer] Maintenance Worker EEG TECHNICIAN,PRIMARY CARE 01/02/2024 13:09 /skinny/ Radha Bustillo MSN RN CNL Primary Care RN 01/02/2024 ADDENDUM STATUS: COMPLETED Attempted to contact Vet, left with RN direct ext. Will await return call. /skinny/ Radha Bustillo MSN RN CNL Primary Care RN Signed: 01/02/2024 13:09 OSIRIS MURILLO [place] CNTL [facility]
--- OUTSIDE RECORDS SUMMARY | 2024-05-29 10:30 | XMS_ITS ---
Author Name [place] Address [address] [place] [address] Care Team Providers Care Segmental Paver Installer Name Role Phone STACEY HORTON Primary Care [...] STAND YON SELF May 29, [phone] [id number] Abdullahi SEVERINO PATIENT MEDICARE (WNR) MEDICARE (M) PART B Jul 18, 2012 PART B [id number] Abdullahi SEVERINO PATIENT MEDICARE (WNR) MEDICARE (M) PART B Jul 18, 2012 PART B [id number] Abdullahi SEVERINO PATIENT MEDICARE (WNR) MEDICARE (M) PART B Jul 18, 2012 PART B [id number] Abdullahi SEVERINO PATIENT MEDICARE (WNR) MEDICARE (M) PART A Dec 19, 2011 PART A [id number] [phone] Abdlulahi SEVERINO PATIENT MEDICARE (WNR) MEDICARE (M) PART A Dec 19, 2011 PART A [id number] Abdullahi SEVERINO PATIENT MEDICARE (WNR) MEDICARE (M) PART A Dec 19, 2011 PART A [id number] Abdullahi SEVERINO PATIENT Selected Encounter This section includes the information on record at [place] for the Encounter. Date/Time Encounter Type Encounter Description Reason Pro vider Source Dec 26, 2023 01:30 PM Outpatient Encounter TELEPHONE PRIMARY CARE IHE [...] 31, 2023 08:00 AM AMBULATORY - MEDICINE [place] [facility] Jan 17, 2024 08:00 AM AMBULATORY - MEDICINE [place] C [place] [facility] Feb 17, 2024 11:00 AM AMBULATORY - MEDICINE NM C [place] [facility] Mar 05, 2024 01:30 PM AMBULATORY - MEDICINE NM C [place] [facility] Mar 25, 2024 01:00 PM [facility]ULAT[facility] Apr 06, 2024 10:00 AM AMBULATORY - MEDICINE NM C [place] [facility] Apr 23, 2024 10:45 AM AMBULATORY - NONE [place] [facility] [place] [facility] Apr 29, 2024 10:00 AM AMBULATORY - MEDICINE NM C [place] [facility] Jun 01, 2024 11:30 AM AMBULATORY - MEDICINE NM C [place] [facility] Active, Pending, and Scheduled Orders This section includes a listing of several types of active, pending, and scheduled orders, including clinic medications orders, diagnostic test orders, procedure orders and consult orders; where the start date of the order is 45 days before the date of the Encounter or 45 days after the date of theEncounter. The data comes from all [place] treatment facilities. Test Date/Time Test Type Test Details Facility Name Dec 27, 2023 03:51 PM Consult Order [facility]-PHYSICAL THERAPY Cons Talent Management Specialist's Choice [facility] Lab Results: +/- 30 days of the encounter This section includes the Chemistry and Hematology Lab Results on record with [place] for the patient. Radiology Reports and Pathology Reports are provided separately, in subsequent sections. Lab Results This section contains the Chemistry/Hematology Results that were resulted 30 days before or 30 daysafter the date of the Encounter. Date/Time Source Result Type Result - Unit Interpretation Reference Range Comment Dec 25, 2023 01:56 PM [place] GLUCOSE, Fingerstick Specimen Type: BLOOD Comment: For GLU FinTest performed by: Crys Slade For GLU Fin Meter #: [id number] Ordering Provider: CRYS SLADE Report Released Date/Time: Dec 25, 2023 03:45 PM Reporting Lab: [address] [address] Performing Lab: [address] [address] GLUCOSE, Fingerstick 143 mg/dL H 65-100 Dec 05, 2023 10:58 AM [facility] HEMOGLOBIN A1C PANEL Specimen [...] Sep 04, 2023 12:58 PM Reporting Lab: [facility] [place] [facility] [address] [address] Performing Lab: [address] [address] HEMOGLOBIN A1C 6.0 H 4.0-5.6 Dec 05, 2023 10:58 AM [facility] BASIC METABOLIC PANEL (non-fasting) Specimen Type: SERUM No comment entered. Ordering Provider: DEISY VELASCO Report Released Date/Time: Sep 04, 2023 12:58 PM Reporting Lab: [facility] [address] [address] Performing Lab: [facility] [address] [address] UREA NITROGEN 19 mg/dL 7-25 GLUCOSE 147 [...] Height Weight Body Mass Index Source Dec 26, 2023 10:52 AM 228 32 [facility] Social History: Smoking Status [...] 05, 2023 11:30 AM VA-TOBACCO FORMER USER [facility] Tobacco Use History This section includes a history of the smoking, or tobacco-related health factors, that were collected on or before the date of the Encounter. The data comes from the [place] facility where the Encounter took place. Date/Time Smoking Status/Tobac co Use Comment Facility Apr 05, 2023 11:30 AM VA-TOBACCO QUIT 15 YRS OR MORE [facility] Dec 28, 2021 09:30 AM VA-TOBACCO FORMER USER [facility] Dec 28, 2021 09:30 AM VA-TOBACCO QUIT 15 YRS OR MORE [facility] Dec 02, 2020 09:00 AM VA-TOBACCO FORMER USER [place] [facility] Dec 02, 2020 09:00 AM VA-TOBACCO QUIT 15 YRS OR MORE [place] [facility] Aug 18, 2019 03:19 PM VA-TOBACCO FORMER USER [place] [facility]TRL [place] [facility] Aug 18, 2019 03:19 PM VA-TOBACCO QUIT 15 YRS OR MORE [place] [facility]L [place] [facility] September 23, 2018 09:58 AM VA-TOBACCO FORMER USER NM CNTRL [place] [facility] September 23, 2018 09:58 AM VA-TOBACCO QUIT 15 YRS OR MORE [place] [facility] [facility] September 30, 2017 09:20 AM QUIT TOBACCO USE > 7 YEARS AGO [place] [facility]L [place] [facility] Aug 20, 2016 09:17 AM QUIT TOBACCO USE > 7 YEARS AGO quit 1991 [place]L [place] [facility] Jun 27, 2016 09:45 AM CURRENT SMOKER Quit 25 years ago [place] [facility]L [place] [facility] Apr 18, 2015 09:06 AM QUIT TOBACCO USE > 7 YEARS AGO quit in 1991 [place] [facility] Mar 21, 2005 10:12 AM HISTORY OF SMOKING NM CNTRL [place] [facility] Mar 21, 2005 10:12 AM QUIT TOBACCO USE > 7 YEARS AGO NM CN[facility]L [place] [facility] Advance Directives: All historical [...] Feb 04, 2019 ADVANCE DIRECTIVE CESAR LUA [place] [facility] Encounter Notes: All associated encounter notes This section contains the clinical notes associated to the Encounter. 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 Status updated in [employer] accordingly. /es/ Jose Santos RN RPM-Home Telehealth Waste Water Worker Signed: 12/26/2023 13:36 Receipt Acknowledged By: 12/27/2023 10:29 /es/ TOÑO LORD RN RPM-Home Telehealth Waste Water Worker JOSE SANTOS [place] CNTL [facility]
--- OUTSIDE RECORDS SUMMARY | 2024-05-29 10:30 | XMS_ITS | Encounter Summary ---
Author Name [place] Address [address] [place] [address] Care Team Providers Care Baker Head Name Role Phone STACEY HORTON Primary Care [...] STAND YON SELF May 29, 2001 104 [id number] [phone] Abdullahi SEVERINO PATIENT MEDICARE (WNR) MEDICARE (M) PART B Jul 18, 2012 PART B [id number] Abdullahi SEVERINO PATIENT MEDICARE (WNR) MEDICARE (M) PART B Jul 18, 2012 PART B [id number] Abdullahi SEVERINO PATIENT MEDICARE (WNR) MEDICARE (M) PART B Jul 18, 2012 PART B [id number] [phone] Abdullahi SEVERINO PATIENT MEDICARE (WNR) MEDICARE (M) PART A Dec 19, 2011 PART A [id number] Abdullahi SEVERINO PATIENT MEDICARE (WNR) MEDICARE (M) PART A Dec 19, 2011 PART A [id number] [phone] Abdullahi SEVERINO PATIENT MEDICARE (WNR) MEDICARE (M) PART A Dec 19, 2011 PART A [id number] Abdullahi SEVERINO PATIENT Selected Encounter This section includes the information on record at [place] for the Encounter. Date/Time Encounter Type Encounter Description Reason Pro vider Source Dec 06, 2023 09:48 AM Outpatient Encounter ENDOCRINOLOGY DEISY VELASCO Encounter Template Text not used by [place] Plan of Treatment: Future Appointments (+ 6 [...] 26, 2023 10:45 AM AMBULATORY - NONE [place] [facility] Dec 31, 2023 08:00 AM AMBULATORY - MEDICINE [place] C [place] [facility] Jan 17, 2024 08:00 AM AMBULATORY - MEDICINE [place] C [place] [facility] Feb 17, 2024 11:00 AM AMBULATORY - MEDICINE RI C [place] [facility] Mar 05, 2024 01:30 PM AMBULATORY - MEDICINE [place] C [place] [facility] Mar 25, 2024 01:00 PM [facility] Apr 06, 2024 10:00 AM AMBULATORY - MEDICINE [place] C [place] [facility] Apr 23, 2024 10:45 AM AMBULATORY - NONE [place] [facility] Apr 29, 2024 10:00 AM AMBULATORY - MEDICINE RI C [place] [facility] Jun 01, 2024 11:30 AM AMBULATORY - MEDICINE RI C [facility] Active, Pending, [...] of theEncounter. The data comes from all [place] treatment facilities. Test Date/Time Test Type Test Details Facility Name Dec 27, 2023 03:51 PM Consult Order [facility]-PHYSICAL THERAPY Cons [place] Preparer's Choice [facility] Lab Results: +/- 30 days [...] Range Comment Dec 25, 2023 01:56 PM [place] GLUCOSE, Fingerstick Specimen Type: BLOOD Comment: For GLU FinTest performed by: Crys Slade For GLU Fin Meter #: [id number] Ordering Provider: CRYS SLADE Report Released Date/Time: Dec 25, 2023 03:45 PM Reporting Lab: [address] [address] Performing Lab: [address] [address] GLUCOSE, Fingerstick 143 mg/dL H 65-100 Dec 05, 2023 10:58 AM [facility] HEMOGLOBIN A1C PANEL Specimen Type: BLOOD [...] Sep 04, 2023 12:58 PM Reporting Lab: [address] [address] Performing Lab: [address] [address] HEMOGLOBIN A1C 6.0 H 4.0-5.6 Dec 05, 2023 10:58 AM [facility] BASIC METABOLIC PANEL (non-fasting) Specimen Type: SERUM No comment entered. Ordering Provider: DEISY VELASCO Report Released Date/Time: Sep 04, 2023 12:58 PM Reporting Lab: [facility] [address] [address] Performing Lab: [facility] [address] [address] UREA NITROGEN 19 mg/dL 7-25 GLUCOSE 147 [...] took place. Date/Time Current Smoking Status Comment [facility] Apr 05, 2023 11:30 AM VA-TOBACCO FORMER USER [facility] Tobacco Use History This section includes a history of the smoking, or tobacco-related health factors, that were collected on or before the date of the Encounter. The data comes from the [place] facility where the Encounter took place. Date/Time Smoking Status/Tobac co Use Comment Facility Apr 05, 2023 11:30 AM VA-TOBACCO QUIT 15 YRS OR MORE [facility] Dec 28, 2021 09:30 AM VA-TOBACCO FOR[facility] Dec 28, 2021 09:30 AM VA-TOBACCO QUIT 15 YRS OR MORE [facility] Dec 02, 2020 09:00 AM VA-TOBACCO FOR[facility]ER [facility] Dec 02, 2020 09:00 AM VA-TOBACCO QUIT 15 YRS OR MORE [facility] Aug 18, 2019 03:19 PM VA-TOBACCO FOR[facility] Aug 18, 2019 03:19 PM VA-TOBACCO QUIT 15 YRS OR MORE [place] [facility] September 23, 2018 09:58 AM VA-TOBACCO FOR[facility] September 23, 2018 09:58 AM VA-TOBACCO QUIT 15 YRS OR MORE [facility] September 30, 2017 09:20 AM QUIT TOBACCO USE > 7 YEARS AGO [facility] Aug 20, 2016 09:17 AM QUIT TOBACCO USE > 7 YEARS AGO quit 1991 [facility] Jun 27, 2016 09:45 AM CURRENT SMOKER Quit 25 years ago [facility] Apr 18, 2015 09:06 AM QUIT TOBACCO USE > 7 YEARS AGO quit in 1991 [facility] Mar 21, 2005 10:12 AM HISTORY OF SMOKING [facility] WSTRN [facility] Mar 21, 2005 10:12 AM QUIT TOBACCO USE > 7 YEARS AGO [facility] Advance Directives: All historical and current [...] Feb 04, 2019 ADVANCE DIRECTIVE CESAR LUA [facility] Encounter Notes: All associated encounter notes This section contains the clinical notes associated to the Encounter. Date/Time Encounter Note(s) Provider Source Dec 06, 2023 09:48 AM ENDOCRINOLOGY SECU RE MESSAGING: LOCAL TITLE: ENDOCRINOLOGY SECURE MESSAGING STANDARD TITLE: ENDOCRINOLOGY SECURE MESSAGING DATE OF NOTE: DEC 06, 2023@09:48 ENTRY DATE: DEC 06, 2023@10:48:55 AUTHOR: DEISY VELASCO COSIGNER: URGENCY: STATUS: COMPLETED ------Original Message ----- Sent: 12/06/2023 10:48 AM ET From: DEISY VELASCO To: CARL SEVERINO Subject: General:General Inquiry Good morning! Your kidney function blood test and chemistries are normal. HGB-A1c 6.0 These results are actually a little low, and we reduced your insulin. Please let me know if you have any more problems with low blood sugars. Be well! /skinny/ DEISY VELASCO MD STAFF PHYSICIAN Signed: 12/06/2023 10:48 DEISY VELASCO [facility] [place] [facility]
--- OUTSIDE RECORDS SUMMARY | 2024-05-29 10:30 | XMS_ITS | Encounter Summary ---
Author Name [facility] Organization [facility] [place] Address [address] [place] [address] Care Team Providers Care Truckload Checker Name Role Phone STACEY HORTON Primary Care [...] STAND YON SELF May 29, [phone] [id number] Abdullahi SEVERINO PATIENT MEDICARE (WNR) MEDICARE (M) PART B Jul 18, 2012 PART B [id number] [phone] Abdullahi SEVERINO PATIENT MEDICARE (WNR) MEDICARE (M) PART B Jul 18, 2012 PART B [id number] [phone] Abdullahi SEVERINO PATIENT MEDICARE (WNR) MEDICARE (M) PART B Jul 18, 2012 PART B [id number] [phone] Abdullahi SEVERINO PATIENT MEDICARE (WNR) MEDICARE (M) PART A Dec 19, 2011 PART A [id number] Abdullahi SEVERINO PATIENT MEDICARE (WNR) MEDICARE (M) PART A Dec 19, 2011 PART A [id number] Abdullahi SEVERINO PATIENT MEDICARE (WNR) MEDICARE (M) PART A Dec 19, 2011 PART A [id number] Abdullahi SEVERINO PATIENT Selected Encounter This section includes the information on record at [place] for the Encounter. Date/Time Encounter Type Encounter Description Reason Pro vider Source Dec 25, 2023 03:33 PM Outpatient Encounter ENDOCRINOLOGY DEISY VELASCO Encounter Template Text not used by [place] Plan of Treatment: Future Appointments (+ 6 months) and Future Tests (+/- 45 days) The Plan of Treatment section includes future care activities for the patient from all [place] treatmentfacilities. This section includes future appointments and [...] AM AMBULATORY - NONE [place] [facility] [facility] Dec 31, 2023 08:00 AM AMBULATORY - MEDICINE [place] [facility] [facility] Jan 17, 2024 08:00 AM AMBULATORY - MEDICINE [place] [facility] [place] [facility] Feb 17, 2024 11:00 AM AMBULATORY - MEDICINE [place] [facility] [facility] Mar 05, 2024 01:30 PM AMBULATORY - MEDICINE [place] [facility] [facility] Mar 25, 2024 01:00 PM [facility] Apr 06, 2024 10:00 AM AMBULATORY - MEDICINE [place] [facility] [place] [facility] Apr 23, 2024 10:45 AM AMBULATORY - NONE [place] [facility] [place] [facility] Apr 29, 2024 10:00 AM AMBULATORY - MEDICINE [place] [facility] [facility] Jun 01, 2024 11:30 AM AMBULATORY - MEDICINE [place] [facility] [place] [facility] Active, Pending, and Scheduled Orders This section includes a listing of several types of active, pending, and scheduled orders, including clinic medications orders, diagnostic test orders, procedure orders and consult orders; where the start date of the order is 45 days before the date of the Encounter or 45 days after the date of theEncounter. The data comes from all [place] treatment facilities. Test Date/Time Test Type Test Details Facility Name Dec 27, 2023 03:51 PM Consult Order [facility] Cons Special [employer] Specialist's Choice [facility] Lab Results: +/- 30 days [...] Range Comment Dec 25, 2023 01:56 PM [place] GLUCOSE, Fingerstick Specimen Type: BLOOD Comment: For GLU FinTest performed by: Crys Slade For GLU Fin Meter #: [id number] Ordering Provider: CRYS SLADE Report Released Date/Time: Dec 25, 2023 03:45 PM Reporting Lab: [address] [address] Performing Lab: [address] [address] GLUCOSE, Fingerstick 143 mg/dL H 65-100 Dec 05, 2023 10:58 AM [facility] HEMOGLOBIN A1C PANEL Specimen Type: [...] Sep 04, 2023 12:58 PM Reporting Lab: [facility] [address] [address] Performing Lab: [address] [address] HEMOGLOBIN A1C 6.0 H 4.0-5.6 Dec 05, 2023 10:58 AM [facility] BASIC METABOLIC PANEL (non-fasting) Specimen Type: SERUM No comment entered. Ordering Provider: DEISY VELASCO Report Released Date/Time: Sep 04, 2023 12:58 PM Reporting Lab: [facility] [address] [address] Performing Lab: [facility] [address] [address] U[place]A NITROGEN 19 mg/dL 7-25 GLUCOSE 147 [...] took place. Date/Time Current Smoking Status Comment [facility] Apr 05, 2023 11:30 AM VA-TOBACCO FORMER USER [facility] Tobacco Use History This section includes a history of the smoking, or tobacco-related health factors, that were collected on or before the date of the Encounter. The data comes from the [place] facility where the Encounter took place. Date/Time Smoking Status/Tobac co Use Comment Facility Apr 05, 2023 11:30 AM VA-TOBACCO QUIT 15 YRS OR MORE [place] [facility] [place] [facility] Dec 28, 2021 09:30 AM VA-TOBACCO FORMER USER [place] [facility] [place] [facility] Dec 28, 2021 09:30 AM VA-TOBACCO QUIT 15 YRS OR MORE [place] [facility] [place] [facility] Dec 02, 2020 09:00 AM [facility] [place] [facility] Dec 02, 2020 09:00 AM VA-TOBACCO QUIT 15 YRS OR MORE [facility] Aug 18, 2019 03:19 PM VA-TOBACCO [facility] Aug 18, 2019 03:19 PM VA-TOBACCO QUIT 15 YRS OR MORE [facility] September 23, 2018 09:58 AM VA-TOBACCO FOR[facility] September 23, 2018 09:58 AM VA-TOBACCO QUIT 15 YRS OR MORE [facility] September 30, 2017 09:20 AM QUIT TOBACCO USE > 7 YEARS AGO [facility] Aug 20, 2016 09:17 AM QUIT TOBACCO USE > 7 YEARS AGO quit 1991 [facility] Jun 27, 2016 09:45 AM CURRENT SMOKER Quit 25 years ago [facility] Apr 18, 2015 09:06 AM QUIT TOBACCO USE > 7 YEARS AGO quit in 1991 [facility] Mar 21, 2005 10:12 AM HISTORY OF SMOKING [facility] Mar 21, 2005 10:12 AM QUIT TOBACCO USE > 7 YEARS AGO [facility] Advance Directives: All historical and current [...] Feb 04, 2019 ADVANCE DIRECTIVE [facility] Encounter Notes: All associated encounter notes This section contains the clinical notes associated to the Encounter. Date/Time Encounter Note(s) Provider Source Dec 25, 2023 03:33 PM ENDOCRINOLOGY SECU RE MESSAGING: LOCAL TITLE: ENDOCRINOLOGY SECURE MESSAGING STANDARD TITLE: ENDOCRINOLOGY SECURE MESSAGING DATE OF NOTE: DEC 25, 2023@15:33 ENTRY DATE: DEC 25, 2023@16:33:04 AUTHOR: DEISY VELASCO COSIGNER: URGENCY: STATUS: COMPLETED ------Original Message ----- Sent: 12/25/2023 04:32 PM ET From: DEISY VELASCO To: CARL SEVERINO Subject: General:General Inquiry Good evening! I see that you are having low alarms overnight. I agree with reducing your insulin. Please also check your blood sugars when this occurs. If your blood sugar is under 120 or so, then you will likely wish to take a little carb (say 15 grams) to avoid a low blood sugar. However, sensors can give false low blood sugars. If your blood sugar by fingerstick is over that, it is likely that the sensor is giving you a false reading, for example, as it may if you are sleeping on your side on the sensor, putting pressure on the area. Be well! /skinny/ DEISY VELASCO MD STAFF PHYSICIAN Signed: 12/25/2023 16:33 DEISY VELASCO [facility]
--- OUTSIDE RECORDS SUMMARY | 2024-05-29 10:31 | XMS_ITS | Encounter Summary ---
Author Name [facility] [place] Organization [facility] [place] [place] Address [address] [place] [address] Care Team Providers Care Estimate Clerk Name Role Phone STACEY HORTON Primary [...] STAND YON SELF May 29, [phone] [id number] Abdullahi SEVERINO PATIENT MEDICARE (WNR) MEDICARE (M) PART B Jul 18, 2012 PART B [id number] [phone] Abdullahi SEVERINO PATIENT MEDICARE (WNR) MEDICARE (M) PART B Jul 18, 2012 PART B [id number] Abdullahi SEVERINO PATIENT MEDICARE (WNR) MEDICARE (M) PART B Jul 18, 2012 PART B [id number] [id number] Abdullahi SEVERINO PATIENT MEDICARE (WNR) MEDICARE (M) PART A Dec 19, 2011 PART A [id number] Abdullahi SEVERINO PATIENT MEDICARE (WNR) MEDICARE (M) PART A Dec 19, 2011 PART A [id number] Abdullahi SEVERINO PATIENT MEDICARE (WNR) MEDICARE (M) PART A Dec 19, 2011 PART A [id number] Abdullahi SEVERINO PATIENT Selected Encounter This section includes the information on record at [place] for the Encounter. Date/Time Encounter Type Encounter Description Reason Pro vider Source Jan 03, 2024 12:00 AM Outpatient Encounter [facility] CONSULT IHE Encounter Template Text not used by [place] Plan of Treatment: Future Appointments (+ 6 [...] - MEDICINE [place] [facility] [place] [facility] Feb 17, 2024 11:00 AM AMBULATORY - MEDICINE [place] [facility] [place] [facility] Mar 05, 2024 01:30 PM AMBULATORY - MEDICINE [place] [facility] [place] [facility] Mar 25, 2024 01:00 PM [facility] Apr 06, 2024 10:00 AM AMBULATORY - MEDICINE [place] [facility] [place] [facility] Apr 23, 2024 10:45 AM AMBULATORY - NONE [place] [facility] [place] [facility] Apr 29, 2024 10:00 AM AMBULATORY - MEDICINE [place] C [facility] [place] [facility] Jun 01, 2024 11:30 AM AMBULATORY - MEDICINE [place] C [facility] [place] [facility] Active, Pending, and Scheduled Orders This section includes a listing of several types of active, pending, and scheduled orders, including clinic medications orders, diagnostic test orders, procedure orders and consult orders; where the start date of the order is 45 days before the date of the Encounter or 45 days after the date of theEncounter. The data comes from all [place] treatment facilities. Test Date/Time Test Type Test Details Facility Name Dec 27, 2023 03:51 PM Consult Order [facility]-PHYSICAL THERAPY Cons Gallery Or Museum Guide's Choice [facility]] [facility] Lab Results: +/- 30 days of [...] Range Comment Dec 25, 2023 01:56 PM [place] GLUCOSE, Fingerstick Specimen Type: BLOOD Comment: For GLU FinTest performed by: Crys Slade For GLU Fin Meter #: [id number] Ordering Provider: CRYS SLADE Report Released Date/Time: Dec 25, 2023 03:45 PM Reporting Lab: [address] [address] Performing Lab: [address] [address] GLUCOSE, Fingerstick 143 mg/dL H 65-100 Dec [...] Sep 04, 2023 12:58 PM Reporting Lab: [facility] [address] [address] Performing Lab: [address] [address] HEMOGLOBIN A1C 6.0 H 4.0-5.6 Dec 05, 2023 10:58 AM [facility] BASIC METABOLIC PANEL (non-fasting) Specimen Type: SERUM No comment entered. Ordering Provider: DEISY VELASCO Report Released Date/Time: Sep 04, 2023 12:58 PM Reporting Lab: [place] [facility] [address] [address] Performing Lab: [place] [facility] [address] [address] UREA NITROGEN 19 mg/dL 7-25 GLUCOSE 147 [...] took place. Date/Time Current Smoking Status Comment [facility] Apr 05, 2023 11:30 AM VA-TOBACCO [facility] Tobacco Use History This section includes a history of the smoking, or tobacco-related health factors, that were collected on or before the date of the Encounter. The data comes from the [place] facility where the Encounter took place. Date/Time Smoking Status/Tobac co Use Comment Facility Apr 05, 2023 11:30 AM VA-TOBACCO QUIT 15 YRS OR MORE [place] [facility] [place] [facility] Dec 28, 2021 09:30 AM VA-TOBACCO FORMER USER [place] [facility] [place] [facility] Dec 28, 2021 09:30 AM VA-TOBACCO QUIT 15 YRS OR MORE [place] [facility] [place] [facility] Dec 02, 2020 09:00 AM VA-TOBACCO FORMER USER [place] [facility] [place] [facility] Dec 02, 2020 09:00 AM VA-TOBACCO QUIT 15 YRS OR MORE [place] [facility] [place] [facility] Aug 18, 2019 03:19 PM VA-TOBACCO FORMER USER [place] [facility] [place] [facility] Aug 18, 2019 03:19 PM VA-TOBACCO QUIT 15 YRS OR MORE [facility] September 23, 2018 09:58 AM VA-TOBACCO [facility] September 23, 2018 09:58 AM VA-TOBACCO QUIT 15 YRS OR MORE [facility] September 30, 2017 09:20 AM QUIT TOBACCO USE > 7 YEARS AGO [facility] Aug 20, 2016 09:17 AM QUIT TOBACCO USE > 7 YEARS AGO quit 1991 [facility] [place] Jun 27, 2016 09:45 AM CURRENT SMOKER Quit 25 years ago [facility] [place] [facility] Apr 18, 2015 09:06 AM QUIT TOBACCO USE > 7 YEARS AGO quit in 1991 [facility] [place] [facility] Mar 21, 2005 10:12 AM HISTORY OF SMOKING [facility] [place] [facility] Mar 21, 2005 10:12 AM QUIT TOBACCO USE > 7 YEARS AGO [facility] Advance Directives: All historical and [...] Source Feb 04, 2019 ADVANCE DIRECTIVE ST[facility]CESAR [facility] Encounter Notes: All associated encounter notes This section contains the clinical notes associated to the Encounter. Date/Time Encounter Note(s) Provider Source Jan 03, 2024 12:00 AM NONVA CONSULT: LOCAL TITLE: COMMUNITY CARE-CONSULT RESULT NOTE STANDARD TITLE: NONVA CONSULT DATE OF NOTE: JAN 03, 2024 ENTRY DATE: JAN 29, 2024@05:50:23 AUTHOR: ELSY HINTON MA EXP COSIGNER: URGENCY: STATUS: COMPLETED VistA Imaging - Scanned Document SCANNED DOCUMENT SIGNATURE NOT REQUIRED Electronically Filed: 01/29/2024 by: ELSY HINTON [employer]CER REGISTRAR ELSY HINTON [facility]
--- OUTSIDE RECORDS SUMMARY | 2024-05-29 10:31 | XMS_ITS ---
Author Name Department of [facility] [place] Organization [facility] of [place] [facility] [place] Address [address] [place] [address] Care Team Providers Care Department Manager Name Role Phone STACEY HORTON Primary Care [...] STAND YON SELF May 29, [phone] [id number] [phone] Abdullahi SEVERINO PATIENT MEDICARE (WNR) MEDICARE (M) PART B Jul 18, 2012 PART B [id number] [phone] Abdullahi SEVERINO PATIENT MEDICARE (WNR) MEDICARE (M) PART B Jul 18, 2012 PART B [id number] Abdullahi SEVERINO PATIENT MEDICARE (WNR) MEDICARE (M) PART B Jul 18, 2012 PART B [id number] [id number] Abdullahi SEVERINO PATIENT MEDICARE (WNR) MEDICARE (M) PART A Dec 19, 2011 PART A [id number] Abdullahi SEVERINO PATIENT MEDICARE (WNR) MEDICARE (M) PART A Dec 19, 2011 PART A [id number] [id number] Abdullahi SEVERINO PATIENT MEDICARE (WNR) MEDICARE (M) PART A Dec 19, 2011 PART A [id number] Abdullahi SEVERINO PATIENT Selected Encounter This section includes the information on record at OR for the Encounter. Date/Time Encounter Type Encounter Description Reason Pro vider Source Feb 04, 2024 03:56 PM Outpatient Encounter TELEPHONE PRIMARY CARE IHE [...] Date/Time Appointment Type Appointme nt Facility Name Feb 17, 2024 11:00 AM AMBULATORY - MEDICINE [place] [facility] [place] [facility] Mar 05, 2024 01:30 PM AMBULATORY - MEDICINE [place] [facility] [place] [facility] Mar 25, 2024 01:00 PM [facility] Apr 06, 2024 10:00 AM AMBULATORY - MEDICINE [place] C [facility] [place] [facility] Apr 23, 2024 10:45 AM AMBULATORY - NONE [place] [facility] [place] [facility] Apr 29, 2024 10:00 AM AMBULATORY - MEDICINE OR C [facility] [place] [facility] Jun 01, 2024 11:30 AM AMBULATORY - MEDICINE [place] C [facility] [place] [facility] Active, Pending, and Scheduled Orders This section includes a listing of several types of active, pending, and scheduled orders, including clinic medications orders, diagnostic test orders, procedure orders and consult orders; where the start date of the order is 45 days before the date of the Encounter or 45 days after the date of theEncounter. The data comes from all [facility]. Test Date/Time Test Type Test Details Facility Name Dec 27, 2023 03:51 PM Consult Order COMMUNITY CARE-PHYSICAL THERAPY Cons [place] Teacher[facility] Choice [facility] Mar 05, 2024 12:00 AM Laboratory - Chemistry Order MICROALBUMIN CREATININE RATIO PANEL URINE (RANDOM) SP [facility] Lab Results: +/- 30 days [...] Result - Unit Interpretation Reference Range Comment Feb 21, 2024 08:31 AM [facility] HEMOGLOBIN A1C PANEL Specimen Type: BLOOD Comment: Values obtained from A1C measurements can vary. For atypical A1C assays, a reported value of 7.0 could actually be between 6.72 and 7.28 if measured by a reference method. A reported value of 9.0 could actually be between 8.73 and 9.27. Ref: http://www.ngs p.org/CAPdata. asp Ordering Provider: DEISY VELASCO Report Released Date/Time: Dec 05, 2023 10:51 AM Reporting Lab: [address] [address] Performing Lab: [address] [address] HEMOGLOBIN A1C 6.0 H 4.0-5.6 Feb 21, 2024 08:31 AM [facility] MICROALBUMIN CREATININE RATIO PANEL Specimen Type: URINE No comment entered. Ordering Provider: DIESY VELASCO Report Released Date/Time: Dec 05, 2023 10:51 AM Reporting Lab: [address] [address] Performing Lab: [address] [address] MICROALBUMIN/C REATININE RATIO 37.8 mg/g H 0-29.9 MICROALBUMIN,Q UANTITATIVE 5.0 mg/dL RR UNAVAIL CREATININE URINE 132.11 mg/dL Feb 21, 2024 08:31 AM [facility] LIPID PANEL FASTING Specimen Type: SERUM No comment entered. Ordering Provider: DEISY VELASCO Report Released Date/Time: Dec 05, 2023 10:51 AM Reporting Lab: [facility] [address] [address] Performing Lab: [address] [address] CHOLESTEROL 102 mg/dL TRIGLYCERIDE 124 mg/dL 0-150 LDL calculated 44 mg/dL 0-129 CHOL/HDL 3.1 HDL CHOLESTEROL 33 mg/dL L 40-60 Feb 21, 2024 08:31 AM [facility] BASIC METABOLIC PANEL (non-fasting) Specimen Type: SERUM No comment entered. Ordering Provider: DEISY VELASCO Report Released Date/Time: Dec 05, 2023 10:51 AM Reporting Lab: [facility] [address] [address] Performing Lab: [address] [address] UREA NITROGEN 15 mg/dL 7-25 GLUCOSE 183 mg/dL H 65-100 SODIUM 137 mmol/L 135-145 POTASSIUM 4.3 mmol/L 3.5-5.0 CHLORIDE 104 mmol/L 100-110 CO2 22 meq/L 20-30 CREATININE, Serum 0.80 mg/dL 0.50-1.40 eGFR(CKD-EPI 2020) >90 mL/min >60 Social History: Smoking Status (Most [...] 2023 11:30 AM VA-TOBACCO FORMER USER [facility] Tobacco Use History This section includes a history of the smoking, or tobacco-related health factors, that were collected on or before the date of the Encounter. The data comes from the [place] facility where the Encounter took place. Date/Time Smoking Status/Tobac co Use Comment Facility Apr 05, 2023 11:30 AM VA-TOBACCO QUIT 15 YRS OR MORE [place] [facility] [place] [facility] Dec 28, 2021 09:30 AM VA-TOBACCO FORMER USER [place] [facility] [facility] Dec 28, 2021 09:30 AM VA-TOBACCO QUIT 15 YRS OR MORE [place] [facility] [place] [facility] Dec 02, 2020 09:00 AM VA-TOBACCO FORMER USER [place] [facility] [place] [facility] Dec 02, 2020 09:00 AM VA-TOBACCO QUIT 15 YRS OR MORE [place] [facility] [place] [facility] Aug 18, 2019 03:19 PM VA-TOBACCO FORMER USER [place] [facility] [place] [facility] Aug 18, 2019 03:19 PM VA-TOBACCO QUIT 15 YRS OR MORE [place] [facility] [place] [place] [facility] September 23, 2018 09:58 AM VA-TOBACCO FORMER USER [place] [facility] [facility] September 23, 2018 09:58 AM VA-TOBACCO QUIT 15 YRS OR MORE [place] [facility] [place] [facility] September 30, 2017 09:20 AM QUIT TOBACCO USE > 7 YEARS AGO [place] [facility] [place] [facility] Aug 20, 2016 09:17 AM QUIT TOBACCO USE > 7 YEARS AGO quit 1991 [place] [facility] [place] [facility] Jun 27, 2016 09:45 AM CURRENT SMOKER Quit 25 years ago [place] [facility] [place] [facility] Apr 18, 2015 09:06 AM QUIT TOBACCO USE > 7 YEARS AGO quit in 1991 [place] [facility] [place] [facility] Mar 21, 2005 10:12 AM HISTORY OF SMOKING [place] [facility] [place] [facility] Mar 21, 2005 10:12 AM QUIT TOBACCO USE > 7 YEARS AGO [place] [facility] Advance Directives: All historical and current [...] Feb 04, 2019 ADVANCE DIRECTIVE CESAR LUA [place] [facility] [place] [facility] Encounter Notes: All associated encounter notes This section contains the clinical notes associated to the Encounter. Date/Time Encounter Note(s) Provider Source Feb 05, 2024 07:24 AM ADDENDUM: LOCAL TITLE: Addendum STANDARD TITLE: ADDENDUM DATE OF NOTE: FEB 05, 2024@07:24:12 ENTRY DATE: FEB 05, 2024@07:24:13 AUTHOR: SANDRA KING COSIGNER: URGENCY: STATUS: COMPLETED Mailed to Telehealth Non-Responder letter. /eusebio KING INBOUND SALES MANAGER GABE Signed: 02/05/2024 07:25 Receipt Acknowledged By: 02/05/2024 09:07 /eusebio LORD RN RPM-Home Telehealth Consulting Services Associate ====== --- Original Document --- 02/04/24 HT NOTE: Noted has not completed a helath check x 28 days. Wasta was placed on away status due to knee surgery. Resort Desk Clerk called Wasta to obtain a status update and possible date for reumption of HT monitoring. Reached for telephone number listed on his chart. Left hippa compliant message requesting a return call. Provided Wasta with return call contact information for his convenience. Resort Desk Clerk will request a letter to be sent to as well. /eusebio LORD RN RPM-Home Telehealth Consulting Services Associate Signed: 02/04/2024 15:59 Receipt Acknowledged By: * AWAITING SIGNATURE * WANDY SETHI 02/05/2024 07:23 /eusebio KING INBOUND SALES MANAGER SANDRA ALCANTAR [place] [facility] Feb 04, 2024 03:56 PM CARE COORDINATION HOME TELEHEALTH NOTE: LOCAL TITLE: HT NOTE STANDARD TITLE: CARE COORDINATION HOME TELEHEALTH NOTE DATE OF NOTE: FEB 04, 2024@15:56 ENTRY DATE: FEB 04, 2024@15:56:57 AUTHOR: TOÑO LORD COSIGNER: URGENCY: STATUS: COMPLETED HT NOTE Has ADDENDA Noted has not completed a helath check x 28 days. was placed on away status due to knee surgery. Resort Desk Clerk called Wasta to obtain a status update and possible date for reumption of HT monitoring. Reached for telephone number listed on his chart. Left hippa compliant message requesting a return call. Provided Wasta with return call contact information for his convenience. Resort Desk Clerk will request a letter to be sent to Wasta as well. /skinny/ TOÑO LORD RN RPM-Home Telehealth Consulting Services Associate Signed: 02/04/2024 15:59 Receipt Acknowledged By: 02/10/2024 08:12 /skinny/ WANDY SETHI TELEHEALTH [place] BLOCKMAKER 02/05/2024 07:23 /skinny/ SANDRA KING INBOUND SALES MANAGER [place] 02/05/2024 ADDENDUM STATUS: COMPLETED Mailed to Telehealth Non-Responder letter. /eusebio KING INBOUND SALES MANAGER [place]/[employer]GI Signed: 02/05/2024 07:25 Receipt Acknowledged By: 02/05/2024 09:07 /skinny/ TOÑO LORD RN RPM-Home Telehealth Consulting Services Associate TOÑO LORD OR [facility]
--- OUTSIDE RECORDS SUMMARY | 2024-05-29 10:31 | XMS_ITS | Encounter Summary ---
Author Name [facility] [place] Organization [place] Address [address] [place] [address] Care Team Providers Care Caustic Operator Name Role Phone STACEY HORTON Primary [...] STAND YON SELF May 29, 2001 104 [id number] Abdullahi SEVERINO PATIENT MEDICARE (WNR) MEDICARE (M) PART B Jul 18, 2012 PART B [id number] Abdullahi SEVERINO PATIENT MEDICARE (WNR) MEDICARE (M) PART B Jul 18, 2012 PART B [id number] [phone] Abdullahi SEVERINO PATIENT MEDICARE (WNR) MEDICARE (M) PART B Jul 18, 2012 PART B [id number] Abdullahi SEVERINO PATIENT MEDICARE (WNR) MEDICARE (M) PART A Dec 19, 2011 PART A [id number] [phone] Abdullahi SEVERINO PATIENT MEDICARE (WNR) MEDICARE (M) PART A Dec 19, 2011 PART A [id number] [phone] Abdullahi SEVERINO PATIENT MEDICARE (WNR) MEDICARE (M) PART A Dec 19, 2011 PART A [id number] Abdullahi SEVERINO PATIENT Selected Encounter This section includes the information on record at [place] for the Encounter. Date/Time Encounter Type Encounter Description Reason Pro vider Source Jan 08, 2024 12:00 AM Outpatient Encounter EVENT (HISTORICAL) IHE Encounter Template Text not used by [place] Plan of Treatment: Future Appointments (+ 6 months) and Future Tests (+/- 45 days) The Plan of Treatment section includes future care activities for the patient from all [place] treatmentfacilities. This section includes future appointments and future orders which are active, pending or scheduled. Future Appointments This section includes appointments that were scheduled to occur 6 months from the date of the Encounter, up to a maximum of 20 appointments. The data comes from all [place] treatment facilities. Appointment Date/Time Appointment Type Appointme nt Facility Name Jan 17, 2024 08:00 AM AMBULATORY - MEDICINE [place] [facility] [facility] Feb 17, 2024 11:00 AM AMBULATORY - MEDICINE [place] [facility] [place] [facility] Mar 05, 2024 01:30 PM AMBULATORY - MEDICINE [place] [facility] [place] [facility] Mar 25, 2024 01:00 PM [facility] Apr 06, 2024 10:00 AM AMBULATORY - MEDICINE [place] [facility] [place] [facility] Apr 23, 2024 10:45 AM AMBULATORY - NONE [place] [facility] [place] [facility] Apr 29, 2024 10:00 AM AMBULATORY - MEDICINE [place] [facility] [place] [facility] Jun 01, 2024 11:30 AM AMBULATORY - MEDICINE [place] [facility] [place] [facility] Active, Pending, and Scheduled Orders This section includes a listing of several types of active, pending, and scheduled orders, including clinic medications orders, diagnostic test orders, procedure orders and consult orders; where the start date of the order is 45 days before the date of the Encounter or 45 days after the date of theEncounter. The data comes from all [place] treatment facilities. Test Date/Time Test Type Test Details Facility Name Dec 27, 2023 03:51 PM Consult Order COMMUNITY CARE-PHYSICAL THERAPY Cons [place] [employer] [facility] Lab Results: +/- 30 days of the encounter This section includes the Chemistry and Hematology Lab Results on record with [place] for the patient. Radiology Reports and Pathology Reports are provided separately, in subsequent sections. Lab Results This section contains the Chemistry/Hematology Results that were resulted 30 days before or 30 daysafter the date of the Encounter. Date/Time Source Result Type Result - Unit Interpretation Reference Range Comment Dec 25, 2023 01:56 PM [place] GLUCOSE, Fingerstick Specimen Type: BLOOD Comment: For GLU FinTest performed by: Crys Slade For GLU Fin Meter #: [id number] Ordering Provider: IBRAHIMA SLADE Report Released Date/Time: Dec 25, 2023 03:45 PM Reporting Lab: [address] [address] Performing Lab: [address] [address] GLUCOSE, Fingerstick 143 mg/dL H 65-100 Social History: Smoking Status (Most current) and Tobacco Use (All prior to encounter date) This section includes the most current, and the historical, smoking and tobacco- related health factors from the [place] facility where the Encounter took place. Current Smoking Status This section includes the most current smoking, or tobacco-related health factor, from the [place] facility where the Encounter took place. Date/Time Current Smoking Status Comment Therese bernstein Apr 05, 2023 11:30 AM VA-TOBACCO FORMER USER [facility] Tobacco Use History This section includes a history of the smoking, or tobacco-related health factors, that were collected on or before the date of the Encounter. The data comes from the [place] facility where the Encounter took place. Date/Time Smoking Status/Tobac co Use Comment [facility] Apr 05, 2023 11:30 AM [place]-TOBACCO QUIT 15 YRS OR MORE [facility] Dec 28, 2021 09:30 AM VA-TOBACCO FORMER USER [facility] Dec 28, 2021 09:30 AM [place]-TOBACCO QUIT 15 YRS OR MORE [place] [facility] [place] [facility] Dec 02, 2020 09:00 AM VA-TOBACCO FORMER USER [place] [facility] [place] [facility] Dec 02, 2020 09:00 AM VA-TOBACCO QUIT 15 YRS OR MORE [place] [facility] [place] [facility] Aug 18, 2019 03:19 PM VA-TOBACCO FORMER USER [place] [facility] [place] [facility] Aug 18, 2019 03:19 PM VA-TOBACCO QUIT 15 YRS OR MORE [place] [facility] [place] [facility] September 23, 2018 09:58 AM VA-TOBACCO FORMER USER [place] [facility] [place] [facility] September 23, 2018 09:58 AM VA-TOBACCO QUIT 15 YRS OR MORE [place] [facility] [place] [facility] September 30, 2017 09:20 AM QUIT TOBACCO USE > 7 YEARS AGO [place] [facility] [place] [facility] Aug 20, 2016 09:17 AM QUIT TOBACCO USE > 7 YEARS AGO [facility] Jun 27, 2016 09:45 AM CURRENT SMOKER Quit 25 years ago [place] [facility] [place] [facility] Apr 18, 2015 09:06 AM QUIT TOBACCO USE > 7 YEARS AGO [facility] 1991 [facility] Mar 21, 2005 10:12 AM HISTORY OF SMOKING [place] [facility] Mar 21, 2005 10:12 AM QUIT TOBACCO USE > 7 YEARS AGO [facility] Advance Directives: All historical and current Section Date Range: From patient's date of to the date document was created. This section includes ALL of a patient's completed or amended [place] Advance and Rescinded Directives. The entries below indicate that a directive exists for the patient, but an actual copy is not included with this document. The data comes from all [place] facilities. Date Advance Directives Provider Source Feb 04, 2019 ADVANCE DIRECTIVE CESAR LUA [place] [facility] Encounter Notes: All associated encounter notes This section contains the clinical notes associated to the Encounter. Date/Time Encounter Note(s) Provider Source Jan 08, 2024 12:00 AM NONVA CONSULT: LOCAL TITLE: COMMUNITY CARE-CONSULT RESULT NOTE STANDARD TITLE: NONVA CONSULT DATE OF NOTE: JAN 08, 2024 ENTRY DATE: JAN 30, 2024@08:26 AUTHOR: ENE GUEVARA EXP COSIGNER: URGENCY: STATUS: COMPLETED VistA Imaging - Scanned Document SCANNED DOCUMENT SIGNATURE NOT REQUIRED Electronically Filed: 01/30/2024 by: ENE THOMSON [facility]
--- OUTSIDE RECORDS SUMMARY | 2024-05-29 10:31 | XMS_ITS | Encounter Summary ---
Author Name [facility] [place] Organization [place] Address [address] [place] [address] Care Team Providers Care Sales Project Administrator Name Role Phone STACEY HORTON Primary Care [...] STAND YON SELF May 29, [phone] [id number] Abdullahi SEVERINO PATIENT MEDICARE (WNR) MEDICARE (M) PART B Jul 18, 2012 PART B [id number] Abdullahi SEVERINO PATIENT MEDICARE (WNR) MEDICARE (M) PART B Jul 18, 2012 PART B [id number] 96A Abdullahi SEVERINO PATIENT MEDICARE (WNR) MEDICARE (M) PART B Jul 18, 2012 PART B [id number] Abdullahi SEVERINO PATIENT MEDICARE (WNR) MEDICARE (M) PART A Dec 19, 2011 PART A [id number] Abdullahi SEVERINO PATIENT MEDICARE (WNR) MEDICARE (M) PART A Dec 19, 2011 PART A [id number] Abdullahi SEVERINO PATIENT MEDICARE (WNR) MEDICARE (M) PART A Dec 19, 2011 PART A [id number] [phone] Abdullahi SEVERINO PATIENT Selected Encounter This section includes the information on record at [place] for the Encounter. Date/Time Encounter Type Encounter Description Reason Provider Source Jan 09, 2024 03:24 PM Outpatient Encounter HT NON-VIDEO MONITORING ICD-10-CM E11.9 Type 2 diabetes mellitus without complications [facility] Encounter Template Text not used by [place] Assessments - Encounter Diagnoses This section includes the primary and secondary diagnoses documented for the Encounter. Date/Time Primary/Secondary Diagnosis Diagnosis Name Provider Source Jan 09, 2024 03:56 PM PRIMARY Type 2 diabetes mellitus without complications RISA,BRE [facility] [place] [facility] Jan 09, 2024 03:56 PM SECONDARY Essential (primary) [facility] [place] [facility] Plan of Treatment: Future Appointments (+ 6 [...] - MEDICINE [place] [facility] [facility] Feb 17, 2024 11:00 AM AMBULATORY - MEDICINE [place] [facility] Mar 05, 2024 01:30 PM AMBULATORY - MEDICINE [place] [facility] Mar 25, 2024 01:00 PM [facility] Apr 06, 2024 10:00 AM AMBULATORY - MEDICINE [place] [facility] Apr 23, 2024 10:45 AM AMBULATORY - NONE [facility] Apr 29, 2024 10:00 AM [facility] Jun 01, 2024 11:30 AM AMBULATORY - MEDICINE [facility] Active, Pending, and Scheduled Orders This [...] PM Consult Order COMMUNITY CARE-PHYSICAL THERAPY Cons Health Informatics Specialist's Choice [facility] Lab Results: +/- 30 days of [...] Range Comment Dec 25, 2023 01:56 PM [place] GLUCOSE, Fingerstick Specimen Type: BLOOD Comment: For GLU FinTest performed by: Crys Slade For GLU Fin Meter #: [id number] Ordering Provider: IBRAHIMA SLADE Report Released Date/Time: Dec 25, 2023 03:45 PM Reporting Lab: [address] [address] Performing Lab: [address] [address] GLUCOSE, Fingerstick 143 mg/dL H 65-100 Social [...] 05, 2023 11:30 AM VA-TOBACCO FORMER USER [facility] Tobacco Use History This section includes a history of the smoking, or tobacco-related health factors, that were collected on or before the date of the Encounter. The data comes from the [place] facility where the Encounter took place. Date/Time Smoking Status/Tobac co Use Comment Facility Apr 05, 2023 11:30 AM VA-TOBACCO QUIT 15 YRS OR MORE [place] [facility] [facility] Dec 28, 2021 09:30 AM VA-TOBACCO FORMER USER [place] [facility] [facility] Dec 28, 2021 09:30 AM VA-TOBACCO QUIT 15 YRS OR MORE [place] [facility] [facility] Dec 02, 2020 09:00 AM VA-TOBACCO FORMER USER [place] [facility] Dec 02, 2020 09:00 AM VA-TOBACCO QUIT 15 YRS OR MORE [place] [facility] [facility] Aug 18, 2019 03:19 PM VA-TOBACCO FORMER USER [place] [facility] Aug 18, 2019 03:19 PM VA-TOBACCO QUIT 15 YRS OR MORE [place] [facility] [facility] September 23, 2018 09:58 AM VA-TOBACCO FORMER USER [place] [facility] September 23, 2018 09:58 AM VA-TOBACCO QUIT 15 YRS OR MORE [place] [facility] [facility] September 30, 2017 09:20 AM QUIT TOBACCO USE > 7 YEARS AGO [place] [facility] [facility] Aug 20, 2016 09:17 AM QUIT TOBACCO USE > 7 YEARS AGO quit 1991 [place] [facility] [place] [facility] Jun 27, 2016 09:45 AM CURRENT SMOKER Quit 25 years ago [place] [facility] [facility] Apr 18, 2015 09:06 AM QUIT TOBACCO USE > 7 YEARS AGO quit in 1991 [place] [facility] Mar 21, 2005 10:12 AM HISTORY OF SMOKING [place] [facility] [facility] Mar 21, 2005 10:12 AM QUIT TOBACCO USE > 7 YEARS AGO [place] [facility] [place] [facility] Advance Directives: All historical and current Section [...] ADVANCE DIRECTIVE CESAR LUA [place] [facility] Encounter Notes: All associated encounter notes This section contains the clinical notes associated to the Encounter. Date/Time Encounter Note(s) Provider Source Jan 09, 2024 03:55 PM CARE COORDINATION HOME TELEHEALTH SUMMARIZATION NOTE: LOCAL TITLE: HT MONTHLY MONITOR NOTE STANDARD TITLE: CARE COORDINATION HOME TELEHEALTH SUMMARIZATION DATE OF NOTE: JAN 09, 2024@15:55 ENTRY DATE: JAN 09, 2024@15:55:23 AUTHOR: TOÑO LORD EXP COSIGNER: URGENCY: STATUS: COMPLETED The [place] is enrolled in the Home Telehealth (HT) program and continues to be monitored via HT technology. The data sent by the is reviewed and analyzed by the HT staff, who provide ongoing case management and health education while communicating and collaborating with the health care team as appropriate. This note covers a total of 30 minutes for the month monitored. Month monitored: DECEMBER 2023 Dx: DM/HTN /es/ TOÑO LORD RN RPM-Home Telehealth Air Brake Worker Signed: 01/09/2024 15:57 TOÑO LORD [place] [facility]L [facility]
--- OUTSIDE RECORDS SUMMARY | 2024-05-29 10:31 | XMS_ITS | Encounter Summary ---
Author Name [facility] [place] Address [address] [place] [address] Care Team Providers Care Supervisor Waterworks Name Role Phone STACEY HORTON Primary [facility] Insurance Providers: All historical and current Section [...] FEP PREFERRED PROVIDER ORGANIZAT ION (PPO) STAND OYN SELF May 29, 2003 [id number] Abdullahi SEVERINO PATIENT MEDICARE (WNR) MEDICARE (M) PART B Jul 18, 2012 PART B [id number] Abdullahi SEVERINO PATIENT MEDICARE (WNR) MEDICARE (M) PART B Jul 18, 2012 PART B [id number] Abdullahi SEVERINO PATIENT MEDICARE (WNR) MEDICARE (M) PART B Jul 18, 2012 PART B [id number] Abdullahi SEVERINO PATIENT MEDICARE (WNR) MEDICARE (M) PART A Dec 19, 2011 PART A [id number] Abdullahi SEVERINO PATIENT MEDICARE (WNR) MEDICARE (M) PART A Dec 19, 2011 PART A [id number] Abdullahi SEVERINO PATIENT MEDICARE (WNR) MEDICARE (M) PART A Dec 19, 2011 PART A [id number] [phone] Abdullahi SEVERINO PATIENT Selected Encounter This section includes the information on record at [place] for the Encounter. Date/Time Encounter Type Encounter Description Reason Pro vider Source Feb 14, 2024 09:26 AM Outpatient Encounter ADMIN PAT ACTIVTIES (MASNONCT) IHE Encounter Template Text not used by [place] Plan of Treatment: Future Appointments (+ 6 [...] 17, 2024 11:00 AM AM[place]ATORY [place]ICINE [place] [facility] [place] [facility] Mar 05, 2024 01:30 PM AMBULATORY [place]ICINE [place] [facility] [place] [facility] Mar 25, 2024 01:00 PM AMBULATORY - MEDICINE [facility] Apr 06, 2024 10:00 AM AM[place]ULATORY [place]IC[place] [facility] [place] [facility] Apr 23, 2024 10:45 AM AMBULATORY - NONE [place] [facility] [place] [facility] Apr 29, 2024 10:00 AM AMBULATORY [place]ICINE [place] [facility] [place] [facility] Jun 01, 2024 11:30 AM AM[place]ULATORY [place]ICINE [place] [facility] [place] [facility] Active, Pending, and Scheduled Orders This section includes a listing of several types of active, pending, and scheduled orders, including clinic medications orders, diagnostic test orders, procedure orders and consult orders; where the start date of the order is 45 days before the date of the Encounter or 45 days after the date of theEncounter. The data comes from all [place] treatment facilities. Test Date/Time Test Type Test Details Facility Name Mar 05, 2024 12:00 AM Laboratory - Chemistry Order MICROALBUMIN CREATININE RATIO PANEL URINE (RANDOM) SP [facility] Lab Results: +/- 30 days [...] Range Comment Feb 21, 2024 08:31 AM [facility] HEMOGLOBIN A1C PANEL Specimen Type: [...] Dec 05, 2023 10:51 AM Reporting Lab: [facility] [address] [facility] [address] Performing Lab: [facility] [address] [facility] [address] HEMOGLOBIN A1C 6.0 H 4.0-5.6 Feb 21, 2024 08:31 AM [facility] MICROALBUMIN CREATININE RATIO PANEL Specimen Type: URINE No comment entered. Ordering Provider: DEISY VELASCO Report Released Date/Time: Dec 05, 2023 10:51 AM Reporting Lab: [facility] [address] [facility] [address] Performing Lab: [address] [address] MICROALBUMIN/C REATININE RATIO 37.8 mg/g H 0-29.9 MICROALBUMIN,Q UANTITATIVE 5.0 mg/dL RR UNAVAIL CREATININE URINE 132.11 mg/dL Feb 21, 2024 08:31 AM [facility] LIPID PANEL FASTING Specimen Type: SERUM No comment entered. Ordering Provider: DEISY VELASCO Report Released Date/Time: Dec 05, 2023 10:51 AM Reporting Lab: [facility] [address] [facility] [address] Performing Lab: [facility] [address] [facility] [address] CHOLESTEROL 102 mg/dL TRIGLYCERIDE 124 mg/dL 0-150 LDL calculated 44 mg/dL 0-129 CHOL/HDL 3.1 HDL CHOLESTEROL 33 mg/dL L 40-60 Feb 21, 2024 08:31 AM [facility] BASIC METABOLIC PANEL (non-fasting) Specimen Type: SERUM No comment entered. Ordering Provider: DEISY VELASCO Report Released Date/Time: Dec 05, 2023 10:51 AM Reporting Lab: [facility] [address] [facility] [address] Performing Lab: [address] [address] UREA NITROGEN 15 mg/dL 7-25 GLUCOSE 183 [...] 05, 2023 11:30 AM VA-TOBACCO FORMER USER [facility] Tobacco Use History This section includes a history of the smoking, or tobacco-related health factors, that were collected on or before the date of the Encounter. The data comes from the [place] facility where the Encounter took place. Date/Time Smoking Status/Tobac co Use Comment Facility Apr 05, 2023 11:30 AM VA-TOBACCO QUIT 15 YRS OR MORE [place] [facility] [place] [facility] Dec 28, 2021 09:30 AM VA-TOBACCO FORMER USER [facility] [place] [facility] Dec 28, 2021 09:30 AM VA-TOBACCO QUIT 15 YRS OR MORE [facility] [place] [facility] Dec 02, 2020 09:00 AM VA-TOBACCO FORMER USER [facility] [place] [facility] Dec 02, 2020 09:00 AM VA-TOBACCO QUIT 15 YRS OR MORE [place] [facility] [place] [facility] Aug 18, 2019 03:19 PM VA-TOBACCO FORMER USER [facility] [place] [facility] Aug 18, 2019 03:19 PM VA-TOBACCO QUIT 15 YRS OR MORE [place] [facility] [place] [facility] September 23, 2018 09:58 AM VA-TOBACCO FORMER USER [place] [facility] [place] [facility] September 23, 2018 09:58 AM VA-TOBACCO QUIT 15 YRS OR MORE [place] [facility] [place] [facility] September 30, 2017 09:20 AM QUIT TOBACCO USE > 7 YEARS AGO [place] [facility] [place] [facility] Aug 20, 2016 09:17 AM QUIT TOBACCO USE > 7 YEARS AGO quit 1991 [place] [facility] [place] [facility] Jun 27, 2016 09:45 AM CURRENT SMOKER Quit 25 years ago [place] [facility] [place] [facility] Apr 18, 2015 09:06 AM QUIT TOBACCO USE > 7 YEARS AGO quit in 1991 [place] [facility] [place] [facility] Mar 21, 2005 10:12 AM HISTORY OF SMOKING [place] [facility] [place] [facility] Mar 21, 2005 10:12 AM QUIT TOBACCO USE > 7 YEARS AGO [place] [facility] [place] [facility] Advance Directives: All historical and current [...] Feb 04, 2019 ADVANCE DIRECTIVE CESAR LUA [facility] [place] [facility] Encounter Notes: All associated encounter notes This section contains the clinical notes associated to the Encounter. Date/Time Encounter Note(s) Provider Source Feb 14, 2024 09:26 AM ADMINISTRATIVE NOT E: LOCAL TITLE: CCC: SCHEDULING ADMINISTRATION STANDARD TITLE: ADMINISTRATIVE NOTE DATE OF NOTE: FEB 14, 2024@09:26:32 ENTRY DATE: FEB 14, 2024@09:26:32 AUTHOR: SYMONE JONES EXP COSIGNER: URGENCY: STATUS: COMPLETED CCC: SCHEDULING ADMINISTRATION Has ADDENDA Patient Demographics Patient Name: CARL SEVERINO Patient Primary Phone: [phone] Patient Primary Address: [address] [place] [address] Patient : 1945 Patient Age: 79 Caller/Recipient Relation to Patient: Self Administrative Administrative Note Reason: Vaccine Request Administrative Note Comments: called to find out when his last covid shot was given. He is going to be [place] [facility] and they need this information. Please call back at [phone] IMPORTANT: This note was created by [facility] staff. Please do not alert the staff member by adding them as a signer for future communications. Alerts are not monitored by this user. /skinny/ SYMONE JONES VISN1 CCC AMSA Signed: 02/14/2024 09:26 Receipt Acknowledged By: 02/14/2024 10:30 /skinny/ Radha REGALADO RN CNL Primary Care RN for MONTRELL BEAN 02/14/2024 10:30 /skinny/ Radha REGALADO RN CNL Primary Care RN 02/14/2024 ADDENDUM STATUS: COMPLETED Talked with Vet, he will come in next week for Flu and covid vaccine /skinny/ Radha REGALADO RN CNL Primary Care RN Signed: 02/14/2024 10:30 SYMONE JONES [facility]
--- OUTSIDE RECORDS SUMMARY | 2024-05-29 10:31 | XMS_ITS | Encounter Summary ---
Author Name [facility] [place] [facility] [place] Address [address] [place] [address] Care Team Providers Care Hand Rounder Name Role Phone STACEY HORTON Primary Care [...] STAND YON SELF May 29, 2001 104 [id number] Abdullahi SEVERINO PATIENT MEDICARE (WNR) MEDICARE (M) PART B Jul 18, 2012 PART B [id number] Abdullahi SEVERINO PATIENT MEDICARE (WNR) MEDICARE (M) PART B Jul 18, 2012 PART B [id number] Abdullahi SEVERINO PATIENT MEDICARE (WNR) MEDICARE (M) PART B Jul 18, 2012 PART B [id number] [phone] Abdullahi SEVERINO PATIENT MEDICARE (WNR) MEDICARE (M) PART A Dec 19, 2011 PART A [id number] [phone] Abdulalhi SEVERINO PATIENT MEDICARE (WNR) MEDICARE (M) PART A Dec 19, 2011 PART A [id number] Abdullahi SEVERINO PATIENT MEDICARE (WNR) MEDICARE (M) PART A Dec 19, 2011 PART A [id number] Abdullahi SEVERINO PATIENT Selected Encounter This section includes the information on record at [place] for the Encounter. Date/Time Encounter Type Encounter Description Reason Provider Source Feb 05, 2024 10:53 AM PRO PHONE CALL 5-10 MIN TELEPHONE/MEDICIN E ICD-10-CM E66.9 Obesity, unspecified NIKKY LORD Afshin Encounter Template Text not used by [place] Assessments - Encounter Diagnoses This section includes the primary and secondary diagnoses documented for the Encounter. Date/Time Primary/Secondary Diagnosis Diagnosis Name Provider Source Feb 05, 2024 10:53 AM PRIMARY Obesity, unspecified RISAKRISTIE NDA [place] [facility] [place] [facility] Feb 05, 2024 10:53 AM SECONDARY Essential (primary) hypertension RISA,BRE [facility] [place] [facility] Feb 05, 2024 10:53 AM SECONDARY Type 2 diabetes mellitus without complications RISA,BRE [facility] [place] [facility] Plan of Treatment: Future Appointments [...] - MEDICINE [place] [facility] [place] [facility] Mar 05, 2024 01:30 PM AMBULATORY - MEDICINE [place] [facility] [facility] Mar 25, 2024 01:00 PM AMBULATORY - MEDICINE [facility] Apr 06, 2024 10:00 AM AMBULATORY - MEDICINE [facility] Apr 23, 2024 10:45 AM AMBULATORY - NONE [facility] Apr 29, 2024 10:00 AM AMBULATORY - MEDICINE [facility] Jun 01, 2024 11:30 AM AMBULATORY - MEDICINE [facility] Active, Pending, and Scheduled Orders This section includes a listing of several types of active, pending, and scheduled orders, including clinic medications orders, diagnostic test orders, procedure orders and consult orders; where the start date of the order is 45 days before the date of the Encounter or 45 days after the date of theEncounter. The data comes from all [place] treatment facilities. Test Date/Time Test Type Test Details Facility Name Dec 27, 2023 03:51 PM Consult Order COMMUNITY CARE-PHYSICAL THERAPY Cons Blow Down Operator's Choice [facility] Mar 05, 2024 12:00 AM Laboratory - Chemistry Order MICROALBUMIN CREATININE RATIO PANEL URINE (RANDOM) SP [facility] Lab Results: +/- 30 days of the encounter This section includes the Chemistry and Hematology Lab Results on record with [place] for the patient. Radiology Reports and Pathology Reports are provided separately, in subsequent sections. Lab Results This section contains the Chemistry/Hematology Results that were resulted 30 days before or 30 daysafter the date of the Encounter. Date/Time Source Result Type Result - Unit Interpretation Reference Range Comment Feb 21, 2024 08:31 AM [facility] HEMOGLOBIN A1C PANEL Specimen Type: BLOOD [...] Dec 05, 2023 10:51 AM Reporting Lab: [address] [address] Performing Lab: [address] [address] HEMOGLOBIN A1C 6.0 H 4.0-5.6 Feb 21, 2024 08:31 AM [facility] MICROALBUMIN CREATININE RATIO PANEL Specimen Type: URINE No comment entered. Ordering Provider: DEISY VELASCO Report Released Date/Time: Dec 05, 2023 10:51 AM Reporting Lab: [facility] [address] [facility] [address] Performing Lab: [facility] [address] [facility] [address] MICROALBUMIN/C REATININE RATIO 37.8 mg/g H 0-29.9 MICROALBUMIN,Q UANTITATIVE 5.0 mg/dL RR UNAVAIL CREATININE URINE 132.11 mg/dL Feb 21, 2024 08:31 AM [facility] LIPID PANEL FASTING Specimen Type: SERUM No comment entered. Ordering Provider: DEISY VELASCO Report Released Date/Time: Dec 05, 2023 10:51 AM Reporting Lab: [facility] [address] [facility] [address] Performing Lab: [facility] [address] [facility] [address] CHOLESTEROL 102 mg/dL TRIGLYCERIDE 124 mg/dL 0-150 LDL calculated 44 mg/dL 0-129 CHOL/HDL 3.1 HDL CHOLESTEROL 33 mg/dL L 40-60 Feb 21, 2024 08:31 AM [facility] BASIC METABOLIC PANEL (non-fasting) Specimen Type: SERUM No comment entered. Ordering Provider: DEISY VELASCO Report Released Date/Time: Dec 05, 2023 10:51 AM Reporting Lab: [facility] [address] [facility] [address] Performing Lab: [address] [address] UREA NITROGEN 15 mg/dL 7-25 GLUCOSE 183 [...] took place. Date/Time Current Smoking Status Comment [facility] it Apr 05, 2023 11:30 AM VA-TOBACCO FORMER USER [place] [facility] [place] [facility] Tobacco Use History This section includes a history of the smoking, or tobacco-related health factors, that were collected on or before the date of the Encounter. The data comes from the [place] facility where the Encounter took place. Date/Time Smoking Status/Tobac co Use Comment Facility Apr 05, 2023 11:30 AM VA-TOBACCO QUIT 15 YRS OR MORE [facility] [place] [facility] Dec 28, 2021 09:30 AM VA-TOBACCO FORMER USER [facility] [place] [facility] Dec 28, 2021 09:30 AM VA-TOBACCO QUIT 15 YRS OR MORE [facility] [place] [facility] Dec 02, 2020 09:00 AM VA-TOBACCO FORMER USER [facility] [place] [facility] Dec 02, 2020 09:00 AM VA-TOBACCO QUIT 15 YRS OR MORE [place] [facility] [place] [facility] Aug 18, 2019 03:19 PM VA-TOBACCO FORMER USER [facility] [place] [facility] Aug 18, 2019 03:19 PM VA-TOBACCO QUIT 15 YRS OR MORE [facility] [place] [facility] September 23, 2018 09:58 AM VA-TOBACCO FORMER USER [facility] [place] [facility] September 23, 2018 09:58 AM VA-TOBACCO QUIT 15 YRS OR MORE [facility] [place] [facility] September 30, 2017 09:20 AM QUIT TOBACCO USE > 7 YEARS AGO [facility] [place] [facility] Aug 20, 2016 09:17 AM QUIT TOBACCO USE > 7 YEARS AGO quit 1992 [place] [facility] [place] [facility] Jun 27, 2016 09:45 AM CURRENT SMOKER Quit 25 years ago [facility] [place] [facility] Apr 18, 2015 09:06 AM QUIT TOBACCO USE > 7 YEARS AGO quit in 1991 [facility] Mar 21, 2005 10:12 AM HISTORY OF SMOKING [facility] Mar 21, 2005 10:12 AM QUIT TOBACCO USE > 7 YEARS AGO [facility] Advance Directives: All historical and current Section [...] Feb 04, 2019 ADVANCE DIRECTIVE CESAR LUA [facility] Encounter Notes: All associated encounter notes This section contains the clinical notes associated to the Encounter. Date/Time Encounter Note(s) Provider Source Feb 05, 2024 10:53 AM CARE COORDINATION HOME TELEHEALTH FOLLOW-UP NOTE: LOCAL TITLE: HT INTERVENTION NOTE STANDARD TITLE: CARE COORDINATION HOME TELEHEALTH FOLLOW-UP NOTE DATE OF NOTE: FEB 05, 2024@10:53 ENTRY DATE: FEB 05, 2024@10:53:55 AUTHOR: TOÑO LORD COSIGNER: URGENCY: STATUS: COMPLETED [place] is actively enrolled in the Home Telehealth program. Review of data shows the following responses: was absent from [facility]-HT program daily health checks x 28 days due to Left knee replacement CARL SEVERINO (-[id number]) Vital Sign for: 01/07/2024 - 02/05/2024 (All times are EST; All weights are lbs) Primary DMP: [facility]-Wt Mgmt Comorbid(s): DM/HTN Summary Weight Sys BP Krishnamurthy BP HR Glu Pain High 228.0 152 69 66 190 Low 228.0 127 64 60 165 Average 228.0 140 67 63 178 Date Time Wt Time Sys Krishnamurthy HR Time Glu Time Pain ======== 02/05/2024 - 10:39 152/69 66 10:38 190 01/07/2024 15:34 228.0 15:33 127/64 60 15:20 165 Source: [facility], [place]; [employer] Assessment: [place] returned writers call. Self identified by full name/. reports that he had complications with his recent left knee replacement surgery. Feels like my left knee is filled with cement I started physical therapy yesterday and that seemed to help I am improving . questioning if pain can effect his blood glucose levels. Skip Miner instructed [place] that pain is a stressor and can effect BP/HR/Bg. Instructed for pain management. Instructed [place] to tkae pain medications as prescribed. [place] states I arrive at PT prior to my appointment and take my pain medicaitons so that I can drive homw after the therapy . Cautioned regarding taking narcotic pain medications and driving. states he is aware of the effects of his pain medications. Encourage [place] to continue with low sodium/consistant carb diet. Reviewed helathy meals/snacks. Encouraged [place] to remain well hydrated. Discussed with importance of resuming daily health checks. [place] states I am getting back on track requests to continue to suspend weight checks until he is more able to safely get on the scale. Skip Miner instructed that his weight prompt will remain on manual (meaning he would need to enter a weight rahter than be promted) [place] states understanding and will plan to enter weight when he is able to check it. Intervention(s)/Plan: Teach s/s of HTN, hypo/hyperglycemia Teach [place] to call 911 with all emergent medical issues [place] to continue healthy meal/snack choices to remain on low sodium/low carb diet Encouraged [place] to continue physical therapy as tolerated TYPE OF ENCOUNTER: Telephone Length of call: 5-10 minutes /skinny/ TOÑO LORD RN [facility]-Home Telehealth Garage Door Technician Signed: 02/05/2024 11:13 TOÑO LORD [place] [facility]
--- OUTSIDE RECORDS SUMMARY | 2024-05-29 10:31 | XMS_ITS ---
Author Name [facility] [place] Organization [place] Address [address] [place] [address] Care Team Providers Care Core Winder Name Role Phone STACEY HORTON Primary Care [...] STAND YON SELF May 29, [phone] [id number] Abdullahi SEVERINO PATIENT MEDICARE (WNR) MEDICARE (M) PART B Jul 18, 2012 PART B [id number] Abdullahi SEVERINO PATIENT MEDICARE (WNR) MEDICARE (M) PART B Jul 18, 2012 PART B [id number] [phone] Abdullahi SEVERINO PATIENT MEDICARE (WNR) MEDICARE (M) PART B Jul 18, 2012 PART B [id number] Abdullahi SEVERINO PATIENT MEDICARE (WNR) MEDICARE (M) PART A Dec 19, 2011 PART A [id number] Abdullahi SEVERINO PATIENT MEDICARE (WNR) MEDICARE (M) PART A Dec 19, 2011 PART A [id number] [phone] Abdullahi SEVERINO PATIENT MEDICARE (WNR) MEDICARE (M) PART A Dec 19, 2011 PART A [id number] [phone] Abdullahi SEVERINO PATIENT Selected Encounter This section includes the information on record at [place] for the Encounter. Date/Time Encounter Type Encounter Description Reason Pro vider Source Jan 10, 2024 12:05 PM Outpatient Encounter TELEPHONE PRIMARY CARE IHE [...] [place] [facility] Feb 17, 2024 11:00 AM AMBULATORY - MEDICINE [place] [facility] Mar 05, 2024 01:30 PM AMBULATORY - MEDICINE [place] [facility] Mar 25, 2024 01:00 PM [facility] Apr 06, 2024 10:00 AM AMBULATORY - MEDICINE [place] [facility] Apr 23, 2024 10:45 AM AMBULATORY - NONE [place] [facility] Apr 29, 2024 10:00 AM AMBULATORY - MEDICINE [place] [facility] Jun 01, 2024 11:30 AM AMBULATORY - MEDICINE [place] [facility] Active, Pending, and Scheduled Orders [...] PM Consult Order COMMUNITY CARE-PHYSICAL THERAPY Cons Job Order Clerk's Choice [facility] Lab Results: +/- 30 days of [...] Range Comment Dec 25, 2023 01:56 PM [place] GLUCOSE, Fingerstick Specimen Type: BLOOD Comment: For GLU FinTest performed by: Crys Slade For GLU Fin Meter #: [id number] Ordering Provider: IBRAHIMA SLADE Report Released Date/Time: Dec 25, 2023 03:45 PM Reporting Lab: [address] [address] Performing Lab: [address] [address] GLUCOSE, Fingerstick 143 mg/dL H 65-100 Social [...] 05, 2023 11:30 AM VA-TOBACCO FORMER USER [facility] Tobacco Use History This section includes a history of the smoking, or tobacco-related health factors, that were collected on or before the date of the Encounter. The data comes from the [place] facility where the Encounter took place. Date/Time Smoking Status/Tobac co Use Comment [facility] Apr 05, 2023 11:30 AM [place]-TOBACCO QUIT 15 YRS OR MORE [facility] Dec 28, 2021 09:30 AM [facility] Dec 28, 2021 09:30 AM AL-TOBACCO QUIT 15 YRS OR MORE [place] [facility] [place] [facility] Dec 02, 2020 09:00 AM VA-TOBACCO FORMER USER [place] [facility] [place] [facility] Dec 02, 2020 09:00 AM VA-TOBACCO QUIT 15 YRS OR MORE [place] [facility] [place] [facility] Aug 18, 2019 03:19 PM VA-TOBACCO FORMER USER [place] [facility] [place] [facility] Aug 18, 2019 03:19 PM VA-TOBACCO QUIT 15 YRS OR MORE [place] [facility] [place] [facility] September 23, 2018 09:58 AM VA-TOBACCO FORMER USER [place] [place] [facility] September 23, 2018 09:58 AM VA-TOBACCO QUIT 15 YRS OR MORE [place] [facility] September 30, 2017 09:20 AM QUIT TOBACCO USE > 7 YEARS AGO [place] [facility] Aug 20, 2016 09:17 AM QUIT TOBACCO USE > 7 YEARS AGO quit 1991 [place] [facility] Jun 27, 2016 09:45 AM CURRENT SMOKER Quit 25 years ago [place] [facility] [place] [facility] Apr 18, 2015 09:06 AM QUIT TOBACCO USE > 7 YEARS AGO quit in 1991 [place] [facility] Mar 21, 2005 10:12 AM HISTORY OF SMOKING [place] [facility] [place] [facility] Mar 21, 2005 10:12 AM QUIT TOBACCO USE > 7 YEARS AGO [facility] Advance Directives: All historical and [...] DIRECTIVE CESAR LUA [place] [facility] Encounter Notes: All associated encounter notes This section contains the clinical notes associated to the Encounter. Date/Time Encounter Note(s) Provider Source Jan 10, 2024 12:06 PM ADMINISTRATIVE NOTE: LOCAL TITLE: FAX/MAIL RECEIVED STANDARD TITLE: ADMINISTRATIVE NOTE DATE OF NOTE: JAN 10, 2024@12:06 ENTRY DATE: JAN 10, 2024@12:06:04 AUTHOR: ENEIDA WEIR EXP COSIGNER: URGENCY: STATUS: COMPLETED Document Received On: Dec Document Type: Hospitalization Date of Service: Dec Facility and or Provider: [facility] Contact Information: PCP of Record: STACEY HORTON Next visit with PCP: 03/05/2024 13:30 NHM/ENDOCRINE 03/25/2024 13:00 CWM/SO/DIABETES EDU1 04/06/2024 10:00 CWM/NO/PACT 7 04/23/2024 10:45 CWM/NO/NUTRITION Primary Care May keep copies of this document for up to 14 days and send the original for scanning. [facility] Admit: 01/08/24 D/C: 01/09/24 Left total knee arthroplasty with Dr. Waller Hospital course: Relatively uneventful medically. The patient denies any nausea or vomiting and has been able to tolerate their diet. Pain is controlled now. Patient is voiding spontaneously. + bowel sounds. Bowels medications given with anticipation of a BM. No other issues. No calf tenderness. The patient is status post left total knee arthroplasty. It is anticipated that they will be discharged home today pending PT, OT clearance. The patient is doing well from a surgical standpoint. Their incision is healing well. Neurovascular status is intact. Calves are supple and nontender. Making good progress with Physical Therapy and Occupational therapy. Supervision with ambulation walking 30 feet , ambulating with a walker WBA T. ROM pending. Pain is well controlled on their current regimen, Acetaminophen 650 mg every 6 hours, Celebrex 200mg daily, Tramadol as needed for mild pain, and Dilaudid as needed for moderate to severe pain. Patient is tolerating this well. They will be sent home with a prescription for this medication. Order for: Tramadol 50mg, 1-2 tabs every 6hrs as needed for 7 days #56 Dilaudid 2mg, 1-2 tabs every 4hrs as needed for pain for 7 days #84 DVT prophylaxis: Eliquis 2.5 mg po bid x 30 days Disposition: Anticipates being discharged today to home with VNA. Follow up at [facility] in two weeks patient is aware ot this. /skinny/ Eneidaabhijit REGALADO RN CNL Primary Care RN Signed: 01/10/2024 12:09 ENEIDA WEIR [facility]TRL [place]
--- OUTSIDE RECORDS SUMMARY | 2024-05-29 10:31 | XMS_ITS | Encounter Summary ---
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 Name Role Phone STACEY HORTON Primary Care [...] STAND YON SELF May 29, [phone] [id number] Abdullahi SEVERINO PATIENT MEDICARE (WNR) MEDICARE (M) PART B Jul 18, 2012 PART B [id number] Abdullahi SEVERINO PATIENT MEDICARE (WNR) MEDICARE (M) PART B Jul 18, 2012 PART B [id number] [phone] Abdullahi SEVERINO PATIENT MEDICARE (WNR) MEDICARE (M) PART B Jul 18, 2012 PART B [id number] [phone] Abdullahi SEVERINO PATIENT MEDICARE (WNR) MEDICARE (M) PART A Dec 19, 2011 PART A [id number] Abdullahi SEVERINO PATIENT MEDICARE (WNR) MEDICARE (M) PART A Dec 19, 2011 PART A [id number] Abdullahi SEVERINO PATIENT MEDICARE (WNR) MEDICARE (M) PART A Dec 19, 2011 PART A [id number] Abdullahi SEVERINO PATIENT Selected Encounter This section includes the information on record at [place] for the Encounter. Date/Time Encounter Type Encounter Description Reason Pro vider Source Dec 30, 2023 12:00 AM Outpatient Encounter EVENT (HISTORICAL) IHE Encounter Template Text not used by [place] Plan of Treatment: Future Appointments (+ 6 months) and Future Tests (+/- 45 days) The Plan of Treatment section includes future care activities for the patient from all [place] treatmentfacilities. This section includes future appointments and future orders which are active, pending or scheduled. Future Appointments This section includes appointments that were scheduled to occur 6 months from the date of the Encounter, up to a maximum of 20 appointments. The data comes from all [place] treatment facilities. Appointment Date/Time Appointment Type Appointme nt Facility Name Dec 31, 2023 08:00 AM AMBULATORY - MEDICINE [place] [facility] Jan 17, 2024 08:00 AM AMBULATORY - MEDICINE [place] [facility] Feb 17, 2024 11:00 AM AMBULATORY - MEDICINE [place] [facility] Mar 05, 2024 01:30 PM AMBULATORY - MEDICINE [place] [facility] Mar 25, 2024 01:00 PM [facility] Apr 06, 2024 10:00 AM AMBULATORY - MEDICINE [place] [facility] Apr 23, 2024 10:45 AM AMBULATORY - NONE [place] [facility] [place] [facility] Apr 29, 2024 10:00 AM AMBULATORY - MEDICINE [place] [facility] Jun 01, 2024 11:30 AM AMBULATORY - MEDICINE [place] [facility] Active, Pending, and Scheduled Orders This section includes a listing of several types of active, pending, and scheduled orders, including clinic medications orders, diagnostic test orders, procedure orders and consult orders; where the start date of the order is 45 days before the date of the Encounter or 45 days after the date of theEncounter. The data comes from all [place] treatment facilities. Test Date/Time Test Type Test Details Facility Name Dec 27, 2023 03:51 PM Consult Order [facility] Cons Public Service Representative's Choice [facility] Lab Results: +/- 30 days of the encounter This section includes the Chemistry and Hematology Lab Results on record with [place] for the patient. Radiology Reports and Pathology Reports are provided separately, in subsequent sections. Lab Results This section contains the Chemistry/Hematology Results that were resulted 30 days before or 30 daysafter the date of the Encounter. Date/Time Source Result Type Result - Unit Interpretation Reference Range Comment Dec 25, 2023 01:56 PM [place] GLUCOSE, Fingerstick Specimen Type: BLOOD Comment: For GLU FinTest performed by: Crys Slade For GLU Fin Meter #: [id number] Ordering Provider: CRYS SLADE Report Released Date/Time: Dec 25, 2023 03:45 PM Reporting Lab: [address] [address] Performing Lab: [address] [address] GLUCOSE, Fingerstick 143 mg/dL H 65-100 Dec 05, 2023 10:58 AM [facility] HEMOGLOBIN A1C PANEL Specimen Type: BLOOD Comment: [...] Sep 04, 2023 12:58 PM Reporting Lab: [facility] [employer] [address] [address] Performing Lab: [address] [address] HEMOGLOBIN A1C 6.0 H 4.0-5.6 Dec 05, 2023 10:58 AM [facility] BASIC METABOLIC PANEL (non-fasting) Specimen Type: SERUM No comment entered. Ordering Provider: DEISY VELASCO Report Released Date/Time: Sep 04, 2023 12:58 PM Reporting Lab: [facility] [address] [facility] [address] Performing Lab: [facility] [address] [facility] [address] UREA NITROGEN 19 mg/dL 7-25 GLUCOSE 147 [...] and tobacco- related health factors from the [place] facility where the Encounter took place. Current Smoking Status This section includes the most current smoking, or tobacco-related health factor, from the [place] facility where the Encounter took place. Date/Time Current Smoking Status Comment [facility] Apr 05, 2023 11:30 AM VA-TOBACCO FORMER USER [facility] Tobacco Use History This section includes a history of the smoking, or tobacco-related health factors, that were collected on or before the date of the Encounter. The data comes from the [place] facility where the Encounter took place. Date/Time Smoking Status/Tobac co Use Comment Facility Apr 05, 2023 11:30 AM VA-TOBACCO QUIT 15 YRS OR MORE [place] [facility] Dec 28, 2021 09:30 AM VA-TOBACCO FORMER USER [place] [facility] Dec 28, 2021 09:30 AM VA-TOBACCO QUIT 15 YRS OR MORE [place] [facility] Dec 02, 2020 09:00 AM VA-TOBACCO FORMER USER [place] [facility] Dec 02, 2020 09:00 AM VA-TOBACCO QUIT 15 YRS OR MORE [place] [facility] Aug 18, 2019 03:19 PM VA-TOBACCO FORMER USER [place] [facility] [place] [facility] Aug 18, 2019 03:19 PM VA-TOBACCO QUIT 15 YRS OR MORE [facility] September 23, 2018 09:58 AM VA-TOBACCO [facility] September 23, 2018 09:58 AM VA-TOBACCO QUIT 15 YRS OR MORE [facility] September 30, 2017 09:20 AM QUIT TOBACCO USE > 7 YEARS AGO [facility] Aug 20, 2016 09:17 AM QUIT TOBACCO USE > 7 YEARS AGO quit 1991 [facility] Jun 27, 2016 09:45 AM CURRENT SMOKER Quit 25 years ago [facility] Apr 18, 2015 09:06 AM QUIT TOBACCO USE > 7 YEARS AGO quit in 1991 [facility] Mar 21, 2005 10:12 AM HISTORY OF SMOKING [facility] Mar 21, 2005 10:12 AM QUIT TOBACCO USE > 7 YEARS AGO [facility] Advance Directives: All historical and current Section Date Range: From patient's date of to the date document was created. This section includes ALL of a patient's completed or amended [place] Advance and Rescinded Directives. The entries below indicate that a directive exists for the patient, but an actual copy is not included with this document. The data comes from all [place] facilities. Date Advance Directives Provider Source Feb 04, 2019 ADVANCE DIRECTIVE CESAR LUA [facility] Encounter Notes: All associated encounter notes This section contains the clinical notes associated to the Encounter. Date/Time Encounter Note(s) Provider Source Dec 30, 2023 12:00 AM NONVA NOTE: LOCAL TITLE: NON-VA OUTPATIENT NOTES STANDARD TITLE: NONVA NOTE DATE OF NOTE: DEC 30, 2023 ENTRY DATE: JAN 16, 2024@14:51:01 AUTHOR: ENE GUEVARA EXP COSIGNER: URGENCY: STATUS: COMPLETED VistA Imaging - Scanned Document SCANNED DOCUMENT SIGNATURE NOT REQUIRED Electronically Filed: 01/16/2024 by: ENE THOMSON [facility]
--- OUTSIDE RECORDS SUMMARY | 2024-05-29 10:31 | XMS_ITS | Encounter Summary ---
Author Name [facility] [place] Address [address] [place] [address] Care Team Providers Care Service Control Operator Name Role Phone STACEY AGGARWAL Primary Care Provider [facility] Insurance Providers: All historical and [...] STAND YON SELF May 29, 2003 104 [id number] Abdullahi SEVERINO PATIENT MEDICARE (WNR) MEDICARE (M) PART B Jul 18, 2012 PART B [id number] [phone] Abdullahi SEVERINO PATIENT MEDICARE (WNR) MEDICARE (M) PART B Jul 18, 2012 PART B [id number] [phone] Abdullahi SEVERINO PATIENT MEDICARE (WNR) MEDICARE (M) PART B Jul 18, 2012 PART B [id number] Abdullahi SEVERINO PATIENT MEDICARE (WNR) MEDICARE (M) PART A Dec 19, 2011 PART A [id number] Abdullahi SEVERINO PATIENT MEDICARE (WNR) MEDICARE (M) PART A Dec 19, 2011 PART A [id number] [phone] Abdullahi SEVERINO PATIENT MEDICARE (WNR) MEDICARE (M) PART A Dec 19, 2011 PART A [id number] [phone] Abdullahi SEVERINO PATIENT Selected Encounter This section includes the information on record at [place] for the Encounter. Date/Time Encounter Type Encounter Description Reason Pro vider Source Feb 07, 2024 10:05 AM Outpatient Encounter ADMIN PAT ACTIVTIES (MASNONCT) [...] 17, 2024 11:00 AM AMBULATORY - MEDICINE [place] [facility] Mar 05, 2024 01:30 PM AMBULATORY - MEDICINE [place] [facility] Mar 25, 2024 01:00 PM AMBULATORY - MEDICINE [facility] Apr 06, 2024 10:00 AM AMBULATORY - MEDICINE [place] [facility] Apr 23, 2024 10:45 AM AMBULATORY - NONE IN [place] [facility] Apr 29, 2024 10:00 AM AMBULATORY - MEDICINE IN [place] [facility] Jun 01, 2024 11:30 AM AMBULATORY - MEDICINE IN [place] [facility] Active, Pending, and Scheduled Orders This section includes a listing of several types of active, pending, and scheduled orders, including clinic medications orders, diagnostic test orders, procedure orders and consult orders; where the start date of the order is 45 days before the date of the Encounter or 45 days after the date of theEncounter. The data comes from all [place] treatment facilities. Test Date/Time Test Type Test Details Facility Name Dec 27, 2023 03:51 PM Consult Order COMMUNITY CARE-PHYSICAL THERAPY Cons Cage T[facility] Choice [facility] Mar 05, 2024 12:00 AM Laboratory - Chemistry Order MICROALBUMIN CREATININE RATIO PANEL URINE (RANDOM) SP [facility] Lab Results: +/- 30 days of the [...] Comment Feb 21, 2024 08:31 AM [facility] HEMOGLOBIN A1C PANEL [...] 05, 2023 10:51 AM Reporting Lab: [facility] [address] [facility] [address] Performing Lab: [address] [address] HEMOGLOBIN A1C 6.0 H 4.0-5.6 Feb 21, 2024 08:31 AM [facility] MICROALBUMIN CREATININE RATIO PANEL Specimen Type: URINE No comment entered. Ordering Provider: DEISY VELASCO Report Released Date/Time: Dec 05, 2023 10:51 AM Reporting Lab: [facility] [address] [facility] [address] Performing Lab: [address] [address] MICROALBUMIN/C REATININE RATIO 37.8 mg/g H 0-29.9 MICROALBUMIN,Q UANTITATIVE 5.0 mg/dL RR UNAVAIL CREATININE URINE 132.11 mg/dL Feb 21, 2024 08:31 AM [facility] LIPID PANEL FASTING Specimen Type: SERUM No comment entered. Ordering Provider: DEISY VELASCO Report Released Date/Time: Dec 05, 2023 10:51 AM Reporting Lab: [facility] [address] [facility] [address] Performing Lab: [address] [address] CHOLESTEROL 102 mg/dL TRIGLYCERIDE 124 mg/dL 0-150 LDL calculated 44 mg/dL 0-129 CHOL/HDL 3.1 HDL CHOLESTEROL 33 mg/dL L 40-60 Feb 21, 2024 08:31 AM [facility] BASIC METABOLIC PANEL (non-fasting) Specimen Type: SERUM No comment entered. Ordering Provider: DEISY VELASCO Report Released Date/Time: Dec 05, 2023 10:51 AM Reporting Lab: [facility] [address] [facility] [address] Performing Lab: [address] [address] UREA NITROGEN 15 mg/dL 7-25 GLUCOSE 183 [...] YRS OR MORE IN [place] [facility] Dec 28, 2021 09:30 AM VA-TOBACCO FORMER USER [place] [facility] [place] [facility] Dec 28, 2021 09:30 AM VA-TOBACCO QUIT 15 YRS OR MORE IN [place] [facility] Dec 02, 2020 09:00 AM VA-TOBACCO FORMER USER [place] [facility] [place] [facility] Dec 02, 2020 09:00 AM VA-TOBACCO QUIT 15 YRS OR MORE IN [place] [facility] Aug 18, 2019 03:19 PM VA-TOBACCO FORMER USER IN [place] [facility] Aug 18, 2019 03:19 PM VA-TOBACCO QUIT 15 YRS OR MORE IN [place] [facility] September 23, 2018 09:58 AM VA-TOBACCO FORMER USER IN [place] [facility] September 23, 2018 09:58 AM VA-TOBACCO QUIT 15 YRS OR MORE IN [place] [facility] September 30, 2017 09:20 AM QUIT TOBACCO USE > 7 YEARS AGO IN [place] [facility] Aug 20, 2016 09:17 AM QUIT TOBACCO USE > 7 YEARS AGO quit 1991 [place] [facility] Jun 27, 2016 09:45 AM CURRENT SMOKER Quit 25 years ago IN [place] [facility] Apr 18, 2015 09:06 AM QUIT TOBACCO USE > 7 YEARS AGO quit in 1991 [place] [facility] Mar 21, 2005 10:12 AM HISTORY OF SMOKING IN [place] [facility] Mar 21, 2005 10:12 AM QUIT TOBACCO USE > 7 YEARS AGO IN [place] [facility] Advance Directives: All historical and current Section [...] ADVANCE DIRECTIVE CESAR LUA [facility] Encounter Notes: All associated encounter notes This section contains the clinical notes associated to the Encounter. Date/Time Encounter Note(s) Provider Source Feb 07, 2024 10:14 AM ADDENDUM: LOCAL TITLE: Addendum STANDARD TITLE: ADDENDUM DATE OF NOTE: FEB 07, 2024@10:14:34 ENTRY DATE: FEB 07, 2024@10:14:34 AUTHOR: ENEIDA WEIR COSIGNER: URGENCY: STATUS: COMPLETED Talked with Vet, Valsartan order is he is requesting renewal and mail. Alert to PCP /skinny/ Eneida Weir MSN RN CNL Primary Care RN Signed: 02/07/2024 10:15 Receipt Acknowledged By: 02/07/2024 12:42 /es/ Stacey Aggarwal DNP, COUNTY DEMONSTRATOR-, CNL Primary Care Nurse Practitioner === --- Original Document --- 02/07/24 CCC: SCHEDULING ADMINISTRATION: Patient Demographics Patient Name: CARL SEVERINO Patient Primary Phone: [phone] Patient Primary Address: [address] [place] [address] Patient : 1945 Patient Age: 79 Caller/Recipient Relation to Patient: Self Administrative Administrative Note Reason: Other Administrative Note Comments: PT WOULD LIKE TO SPEAK TO THE RN REGARDING ONE OF HIS MEDICATIONS (VALSARTIN). PT IS TRYING TO ORDER IT BUT ADMINISTRATIVE SERVICES MANAGER DOES NOT SEE IT IN HIS RECORD BUT PT IS INSISTING HE TAKES IT. [phone] IMPORTANT: This note was created by [place] [facility] Clinical Contact Center staff. Please do not alert the staff member by adding them as a signer for future communications. Alerts are not monitored by this user. /es/ ANT ZARATE ADVANCED SUPERVISOR PRESSING DEPARTMENT Signed: 02/07/2024 10:06 Receipt Acknowledged By: 02/07/2024 10:26 /skinny/ Brett Biggs, Health Electronic Transaction Implementer SKI TOPPER,PRIMARY CARE 02/07/2024 10:14 /skinny/ Eneida REGALADO RN CNL Primary Care RN ENEIDA WEIR IN [place] [facility] Feb 07, 2024 10:06 AM ADMINISTRATIVE NOTE: LOCAL TITLE: CCC: SCHEDULING ADMINISTRATION STANDARD TITLE: ADMINISTRATIVE NOTE DATE OF NOTE: FEB 07, 2024@10:06:04 ENTRY DATE: FEB 07, 2024@10:06:04 AUTHOR: NAN ZARATE COSIGNER: URGENCY: STATUS: COMPLETED CCC: SCHEDULING ADMINISTRATION Has ADDENDA Patient Demographics Patient Name: CARL SEVERINO Patient Primary Phone: [phone] Patient Primary Address: [address] [place] [address] Patient : 1945 Patient Age: 79 Caller/Recipient Relation to Patient: Self Administrative Administrative Note Reason: Other Administrative Note Comments: PT WOULD LIKE TO SPEAK TO THE RN REGARDING ONE OF HIS MEDICATIONS (VALSARTIN). PT IS TRYING TO ORDER IT BUT ADMINISTRATIVE SERVICES MANAGER DOES NOT SEE IT IN HIS RECORD BUT PT IS INSISTING HE TAKES IT. [phone] IMPORTANT: This note was created by [facility] Clinical Contact Center staff. Please do not alert the staff member by adding them as a signer for future communications. Alerts are not monitored by this user. /eusebio ZARATE ADVANCED SUPERVISOR PRESSING DEPARTMENT Signed: 02/07/2024 10:06 Receipt Acknowledged By: 02/07/2024 10:26 /skinny/ Brett Biggs, Health Electronic Transaction Implementer SKI TOPPER,PRIMARY CARE 02/07/2024 10:14 /skinny/ Eneida REGALADO RN CNL Primary Care RN 02/07/2024 ADDENDUM STATUS: COMPLETED Talked with Nestor Valsartan order is he is requesting renewal and mail. Alert to PCP /eusebio REGALADO RN CNL Primary Care RN Signed: 02/07/2024 10:15 Receipt Acknowledged By: * AWAITING SIGNATURE * STACEY AGGARWAL [facility]
--- OUTSIDE RECORDS SUMMARY | 2024-05-29 10:32 | XMS_ITS | Encounter Summary ---
Author Name [facility] [place] Address [address] [place] [address] Care Team Providers Care Employment Educational Coord Name Role Phone STACEY AGGARWAL Primary Care [...] STAND YON SELF May 29, 2003 104 [id number] [phone] Abdullahi SEVERINO PATIENT MEDICARE (WNR) MEDICARE (M) PART B Jul 18, 2012 PART B [id number] Abdullahi SEVERINO PATIENT MEDICARE (WNR) MEDICARE (M) PART B Jul 18, 2012 PART B [id number] Abdullahi SEVERINO PATIENT MEDICARE (WNR) MEDICARE (M) PART B Jul 18, 2012 PART B [id number] 96A Abdullahi SEVERINO PATIENT MEDICARE (WNR) MEDICARE (M) PART A Dec 19, 2011 PART A [id number] Abdullahi SEVERINO PATIENT MEDICARE (WNR) MEDICARE (M) PART A Dec 19, 2011 PART A [id number] 96A Abdullahi SEVERINO PATIENT MEDICARE (WNR) MEDICARE (M) PART A Dec 19, 2011 PART A [id number] Abdullahi SEVERINO PATIENT Selected Encounter This section includes the information on record at [place] for the Encounter. Date/Time Encounter Type Encounter Description Reason Pro vider Source Feb 27, 2024 03:02 PM Outpatient Encounter TELEPHONE TRIAGE IHE Encounter Template Text not used by [...] The data comes from all [place] treatment [facility]. Appointment Date/Time Appointment Type Appointme nt Facility Name Mar 05, 2024 01:30 PM AMBULATORY [place]ICINE [place] [facility] Mar 25, 2024 01:00 PM AMBULATORY - MEDICINE [facility] Apr 06, 2024 10:00 AM AMBULATORY - [place]ICINE [place] [facility] Apr 23, 2024 10:45 AM AM[facility]ULATORY - [facility] [place] [facility] Apr 29, 2024 10:00 AM AMBULATORY - MEDICINE [facility] [place] [facility] Jun 01, 2024 11:30 AM AMBULATORY - MEDICINE [facility] [place] [facility] Active, Pending, and Scheduled Orders This section includes a listing of several types of active, pending, and scheduled orders, including clinic medications orders, diagnostic test orders, procedure orders and consult orders; where the start date of the order is 45 days before the date of the Encounter or 45 days after the date of theEncounter. The data comes from all [facility]. Test Date/Time Test Type Test Details Facility Name Mar 05, 2024 12:00 AM Laboratory - Chemistry Order MICROALBUMIN CREATININE RATIO PANEL URINE (RANDOM) SP [facility] Lab Results: +/- 30 days of the [...] Range Comment Feb 21, 2024 08:31 AM [facility] HEMOGLOBIN A1C PANEL Specimen Type: BLOOD Comment: [...] Dec 05, 2023 10:51 AM Reporting Lab: [facility] [address] [facility] [address] Performing Lab: [address] [address] HEMOGLOBIN A1C 6.0 H 4.0-5.6 Feb 21, 2024 08:31 AM [facility] MICROALBUMIN CREATININE RATIO PANEL Specimen Type: URINE No comment entered. Ordering Provider: DEISY VELASCO Report Released Date/Time: Dec 05, 2023 10:51 AM Reporting Lab: [address] [address] Performing Lab: [address] [address] MICROALBUMIN/C REATININE RATIO 37.8 mg/g H 0-29.9 MICROALBUMIN,Q UANTITATIVE 5.0 mg/dL RR UNAVAIL CREATININE URINE 132.11 mg/dL Feb 21, 2024 08:31 AM [facility] LIPID PANEL FASTING Specimen Type: SERUM No comment entered. Ordering Provider: DEISY VELASCO Report Released Date/Time: Dec 05, 2023 10:51 AM Reporting Lab: [facility] [address] [facility] [address] Performing Lab: [facility] [address] [facility] [address] CHOLESTEROL 102 mg/dL TRIGLYCERIDE 124 mg/dL 0-150 LDL calculated 44 mg/dL 0-129 CHOL/HDL 3.1 HDL CHOLESTEROL 33 mg/dL L 40-60 Feb 21, 2024 08:31 AM [facility] BASIC METABOLIC PANEL (non-fasting) Specimen Type: SERUM No comment entered. Ordering Provider: DEISY VELASCO Report Released Date/Time: Dec 05, 2023 10:51 AM Reporting Lab: [facility] [address] [facility] [address] Performing Lab: [address] [address] UREA NITROGEN 15 mg/dL 7-25 GLUCOSE 183 [...] place. Date/Time Current Smoking Status Comment [facility] Apr 05, 2023 11:30 AM VA-TOBACCO FORMER USER [facility] Tobacco Use History This section includes a history of the smoking, or tobacco-related health factors, that were collected on or before the date of the Encounter. The data comes from the [place] facility where the Encounter took place. Date/Time Smoking Status/Tobac co Use Comment Facility Apr 05, 2023 11:30 AM [place]-TO[place]ACCO QUIT 15 YRS OR MORE [facility] Dec 28, 2021 09:30 AM VA-TOBACCO FORMER USER [place] [facility] [place] [facility] Dec 28, 2021 09:30 AM VA-TOBACCO QUIT 15 YRS OR MORE [place] [facility] [facility] Dec 02, 2020 09:00 AM VA-TOBACCO FORMER USER [place] [facility] Dec 02, 2020 09:00 AM VA-TOBACCO QUIT 15 YRS OR MORE [place] [facility] [facility] Aug 18, 2019 03:19 PM VA-TOBACCO FORMER USER [place] [facility] Aug 18, 2019 03:19 PM VA-TOBACCO QUIT 15 YRS OR MORE [place] [facility] [facility] September 23, 2018 09:58 AM VA-TOBACCO FORMER USER [place] [facility] September 23, 2018 09:58 AM VA-TOBACCO QUIT 15 YRS OR MORE [place] [facility] [facility] September 30, 2017 09:20 AM QUIT TOBACCO USE > 7 YEARS AGO [place] [facility] [facility] Aug 20, 2016 09:17 AM QUIT TOBACCO USE > 7 YEARS AGO quit 1991 [place] [facility] Jun 27, 2016 09:45 AM CURRENT SMOKER Quit 25 years ago [place] [facility] [facility] Apr 18, 2015 09:06 AM QUIT TOBACCO USE > 7 YEARS AGO quit [facility] [place] [facility] Mar 21, 2005 10:12 AM HISTORY OF SMOKING [facility] [place] [facility] Mar 21, 2005 10:12 AM QUIT TOBACCO USE > 7 YEARS AGO [facility] Advance Directives: All historical and current Section [...] Feb 04, 2019 ADVANCE DIRECTIVE CESAR LUA [place] [facility] Encounter Notes: All associated encounter notes This section contains the clinical notes associated to the Encounter. Date/Time Encounter Note(s) Provider Source Feb 27, 2024 03:29 PM ADDENDUM: LOCAL TITLE: Addendum STANDARD TITLE: ADDENDUM DATE OF NOTE: FEB 27, 2024@15:29:17 ENTRY DATE: FEB 27, 2024@15:29:18 AUTHOR: STACEY AGGARWAL COSIGNER: URGENCY: STATUS: COMPLETED His TDAP is within 10yrs. There is no evidence that there would be any benefit with reboosting sooner with an exposure. Despite being vaccinated, he could still experience more mild symptoms. In that case he would want to avoid being around childen under 4 or older adults. Symptom management with OTC. If cough worsens or fever develops, seek medical evaluation. /es/ Stacey Aggarwal DNP, SHIP RUNNER-BC, CNL Primary Care Nurse Practitioner Signed: 02/27/2024 15:33 Receipt Acknowledged By: 02/27/2024 15:41 /es/ Radha REGALADO RN CNL Primary Care RN --- Original Document --- 02/27/24 [facility]: CLINICAL TRIAGE: Patient Demographics Patient Name: CARL SEVERINO Patient Primary Address: [address] [place] [address] Patient Primary Phone: [phone] Patient : 1945 Patient Age: 79 Call Back Number: [phone] Caller/Recipient Relation to Patient: Self Emergency Contact: HILL GALLEGOS Triage Summary Chief Complaint: preventative medication whooping cough Patient Disposition Patient/Caregiver agrees to plan of care: Yes Nursing Plan and Disposition Other course(s) of action Generated msg to PACT/Provider Nurse Summary Nurse Summary: reports he is asymptomatic but that his son was diagnosed with Whooping Cough. His son's Physician recommended that he contact his PCP for a preventative medication per Veterans report Forwarding request to PC team for f/u with please Clinical Contact Center Codes Clinic/Location: [facility] PHONE CM RN IMPORTANT: This note was created by [facility] Clinical Contact Center staff. Please do not alert the staff member by adding them as a signer for future communications. Alerts are not monitored by this user. /skinny/ EMMA FIGUEROA Clinical Contact Center pie cutter Signed: 02/27/2024 15:03 Receipt Acknowledged By: 02/27/2024 15:14 /skinny/ Radha Bustillo MSN RN CNL Primary Care RN for MONTRELL BEAN 02/27/2024 15:27 /skinny/ Stacey Aggarwal DNP, SHIP RUNNER-BC, CNL Primary Care Nurse Practitioner 02/27/2024 15:14 /skinny/ Radha Bustillo MSN RN CNL Primary Care RN 02/27/2024 ADDENDUM STATUS: COMPLETED Last Pertussis vaccination given as part of Tdap 04/03/17. Defer to PCP for recommendations /skinny/ Radha Bustillo MSN RN CNL Primary Care RN Signed: 02/27/2024 15:14 STACEY AGGARWAL [facility] Feb 27, 2024 03:03 PM RN PROGRESS NOTE: LOCAL TITLE: CCC: CLINICAL TRIAGE STANDARD TITLE: RN PROGRESS NOTE DATE OF NOTE: FEB 27, 2024@15:03:05 ENTRY DATE: FEB 27, 2024@15:03:06 AUTHOR: EMMA FIGUEROA EXP COSIGNER: URGENCY: STATUS: COMPLETED CCC: CLINICAL TRIAGE Has ADDENDA Patient Demographics Patient Name: CARL SEVERINO Patient Primary Address: [address] [place] [address] Patient Primary Phone: [phone] Patient : 1945 Patient Age: 79 Call Back Number: [phone] Caller/Recipient Relation to Patient: Self Emergency Contact: HILL GALLEGOS Triage Summary Chief Complaint: preventative medication whooping cough Patient Disposition Patient/Caregiver agrees to plan of care: Yes Nursing Plan and Disposition Other course(s) of action Generated msg to PACT/Provider Nurse Summary Nurse Summary: [place] reports he is asymptomatic but that his son was diagnosed with Whooping Cough. His son's Physician recommended that he contact his PCP for a preventative medication per Veterans report Forwarding request to PC team for f/u with [place] please Clinical Contact Center Codes Clinic/Location: V1 [facility] PHONE CCC RN IMPORTANT: This note was created by [facility] Clinical Contact Center staff. Please do not alert the staff member by adding them as a signer for future communications. Alerts are not monitored by this user. /skinny/ EMMA FIGUEROA Clinical Contact Center pie cutter Signed: 02/27/2024 15:03 Receipt Acknowledged By: 02/27/2024 15:14 /skinny/ Radha REGALADO RN CNL Primary Care RN for MONTRELL BEAN 02/27/2024 15:27 /skinny/ EDMUND Baker DNP, JASE Primary Care Nurse Practitioner 02/27/2024 15:14 /skinny/ Radha REGALADO RN CNL Primary Care RN 02/27/2024 ADDENDUM STATUS: COMPLETED Last Pertussis vaccination given as part of Tdap 04/03/17. Defer to PCP for recommendations /skinny/ Radha REGALADO RN CNL Primary Care RN Signed: 02/27/2024 15:14 02/27/2024 ADDENDUM STATUS: COMPLETED His TDAP is within 10yrs. There is no evidence that there would be any benefit with reboosting sooner with an exposure. Despite being vaccinated, he could still experience more mild symptoms. In that case he would want to avoid being around childen under 4 or older adults. Symptom management with OTC. If cough worsens or fever develops, seek medical evaluation. /skinny/ EDMUND Baker DNP, CNL Primary Care Nurse Practitioner Signed: 02/27/2024 15:33 Receipt Acknowledged By: 02/27/2024 15:41 /skinny/ Radha REGALADO RN CNL Primary Care RN 02/27/2024 ADDENDUM STATUS: COMPLETED talked with Vet, reviewed above /eusebio REGALADO RN CNL Primary Care RN Signed: 02/27/2024 15:42 EMMA FIGUEROA [facility] [place] [facility]
--- OUTSIDE RECORDS SUMMARY | 2024-05-29 10:32 | XMS_ITS | Encounter Summary ---
Author Name [facility] [place] Address [address] [place] [id number] Care Team Providers Care Guide Plant Name Role Phone STACEY HORTON Primary Care [...] STAND YON SELF May 29, 2003 104 [id number] Abdullahi SEVERINO PATIENT MEDICARE (WNR) MEDICARE (M) PART B Jul 18, 2012 PART B [id number] Abdullahi SEVERINO PATIENT MEDICARE (WNR) MEDICARE (M) PART B Jul 18, 2012 PART B [id number] [phone] Abdullahi SEVERINO PATIENT MEDICARE (WNR) MEDICARE (M) PART B Jul 18, 2012 PART B [id number] Abdullahi SEVERINO PATIENT MEDICARE (WNR) MEDICARE (M) PART A Dec 19, 2011 PART A [id number] 96A Abdullahi SEVERINO PATIENT MEDICARE (WNR) MEDICARE (M) PART A Dec 19, 2011 PART A [id number] Abdullahi SEVERINO PATIENT MEDICARE (WNR) MEDICARE (M) PART A Dec 19, 2011 PART A [id number] 96A Abdullahi SEVERINO PATIENT Selected Encounter This section includes the information on record at [place] for the Encounter. Date/Time Encounter Type Encounter Description Reason Pro vider Source IHE Encounter Template Text not used by [place] Advance Directives: All historical and current Section [...] ADVANCE DIRECTIVE CESAR LUA [place] [facility] [place] [facility]
--- OUTSIDE RECORDS SUMMARY | 2024-05-29 10:32 | XMS_ITS | Encounter Summary ---
Author Name [facility] [place] Organization [facility] [place] Address [address] [place] [address] Care Team Providers Care Firestopper Installer Name Role Phone STACEY HORTON Primary [...] STAND YON SELF May 29, 2003 104 [id number] Abdullahi SEVERINO PATIENT MEDICARE (WNR) MEDICARE (M) PART B Jul 18, 2012 PART B [id number] Abdullahi SEVERINO PATIENT MEDICARE (WNR) MEDICARE (M) PART B Jul 18, 2012 PART B [id number] [phone] Abdullahi SEVERINO PATIENT MEDICARE (WNR) MEDICARE (M) PART B Jul 18, 2012 PART B [id number] Abdullahi SEVERINO PATIENT MEDICARE (WNR) MEDICARE (M) PART A Dec 19, 2011 PART A [id number] 96A Abdullahi SEVERINO PATIENT MEDICARE (WNR) MEDICARE (M) PART A Dec 19, 2011 PART A [id number] [phone] Abdullahi SEVERINO PATIENT MEDICARE (WNR) MEDICARE (M) PART A Dec 19, 2011 PART A [id number] Abdullahi SEVERINO PATIENT Selected Encounter This section includes the information on record at [place] for the Encounter. Date/Time Encounter Type Encounter Description Reason Pro vider Source IHE Encounter Template Text not used by [place] Advance Directives: All historical and current Section [...] ADVANCE DIRECTIVE CESAR LUA [place] [facility] [place] [facility]
--- OUTSIDE RECORDS SUMMARY | 2024-05-29 10:32 | XMS_ITS | Encounter Summary ---
Author Name [facility] [place] [facility] [place] Address [address] [place] [address] Care Team Providers Care Calender Tender Name Role Phone STACEY HORTON [facility] Insurance Providers: All historical and current Section [...] STAND YON SELF May 29, 2001 [id number] Abdullahi SEVERINO PATIENT MEDICARE (WNR) MEDICARE (M) PART B Jul 18, 2012 PART B [id number] Abdullahi SEVERINO PATIENT MEDICARE (WNR) MEDICARE (M) PART B Jul 18, 2012 PART B [id number] [phone] Abdullahi SEVERINO PATIENT MEDICARE (WNR) MEDICARE (M) PART B Jul 18, 2012 PART B [id number] Abdullahi SEVERINO PATIENT MEDICARE (WNR) MEDICARE (M) PART A Dec 19, 2011 PART A [id number] Abdullahi SEVERINO PATIENT MEDICARE (WNR) MEDICARE (M) PART A Dec 19, 2011 PART A [id number] Abdullahi SEVERINO PATIENT MEDICARE (WNR) MEDICARE (M) PART A Dec 19, 2011 PART A [id number] Abdullahi SEVERINO PATIENT Selected Encounter This section includes the information on record at [place] for the Encounter. Date/Time Encounter Type Encounter Description Reason Provider Source Feb 17, 2024 11:00 AM ADMN SARSCOV2 VACC 1 DOSE PRIMARY CARE/MEDICINE ICD-10-CM Z23 Encounter for immunization ANNABEL WEIR IHAfshin Encounter Template Text not used by [place] Assessments - Encounter Diagnoses This section includes the primary and secondary diagnoses documented for the Encounter. Date/Time Primary/Secondary Diagnosis Diagnosis Name Provider Source Feb 17, 2024 11:20 AM PRIMARY Encounter for immunization ANNABEL WEIR [facility] Plan of Treatment: Future Appointments (+ 6 months) and Future Tests (+/- 45 days) The Plan of Treatment section includes future care activities for the patient [facility] [place] [facility] This section includes future appointments [...] 05, 2024 01:30 PM AMBULATORY - MEDICINE [place] [facility] Mar 25, 2024 01:00 PM [facility] Apr 06, 2024 10:00 AM AMBULATORY - MEDICINE [place] [facility] Apr 23, 2024 10:45 AM AMBULATORY - NONE [place] [facility] Apr 29, 2024 10:00 AM AMBULATORY - MEDICINE [place] [facility] Jun 01, 2024 11:30 AM AMBULATORY - MEDICINE [place] [facility] Active, Pending, and Scheduled Orders This [...] MICROALBUMIN CREATININE RATIO PANEL URINE (RANDOM) SP [facility] Lab Results: +/- 30 days of the encounter This section includes the Chemistry and Hematology Lab Results on record with [place] for the patient. Radiology Reports and Pathology Reports are provided separately, in subsequent sections. Lab Results This section contains the Chemistry/Hematology Results that were resulted 30 days before or 30 daysafter the date of the Encounter. Date/Time Source Result Type Result - Unit Interpretation Reference Range Comment Feb 21, 2024 08:31 AM [facility] HEMOGLOBIN A1C PANEL Specimen Type: BLOOD Comment: [...] Dec 05, 2023 10:51 AM Reporting Lab: [facility] [address] [facility] [address] Performing Lab: [address] [address] HEMOGLOBIN A1C 6.0 H 4.0-5.6 Feb 21, 2024 08:31 AM [facility] MICROALBUMIN CREATININE RATIO PANEL Specimen Type: URINE No comment entered. Ordering Provider: DEISY VELASCO Report Released Date/Time: Dec 05, 2023 10:51 AM Reporting Lab: [facility] [address] [facility] [address] Performing Lab: [address] [address] MICROALBUMIN/C REATININE RATIO 37.8 mg/g H 0-29.9 MICROALBUMIN,Q UANTITATIVE 5.0 mg/dL RR UNAVAIL CREATININE URINE 132.11 mg/dL Feb 21, 2024 08:31 AM [facility] LIPID PANEL FASTING Specimen Type: SERUM No comment entered. Ordering Provider: DEISY VELASCO Report Released Date/Time: Dec 05, 2023 10:51 AM Reporting Lab: [facility] [address] [facility] [address] Performing Lab: [facility] [address] [facility] [address] CHOLESTEROL 102 mg/dL TRIGLYCERIDE 124 mg/dL 0-150 LDL calculated 44 mg/dL 0-129 CHOL/HDL 3.1 HDL CHOLESTEROL 33 mg/dL L 40-60 Feb 21, 2024 08:31 AM [facility] BASIC METABOLIC PANEL (non-fasting) Specimen Type: SERUM No comment entered. Ordering Provider: DEISY VELASCO Report Released Date/Time: Dec 05, 2023 10:51 AM Reporting Lab: [facility] [address] [facility] [address] Performing Lab: [facility] [address] [facility] [address] UREA NITROGEN 15 mg/dL 7-25 GLUCOSE 183 mg/dL H 65-100 SODIUM 137 mmol/L 135-145 POTASSIUM 4.3 mmol/L 3.5-5.0 CHLORIDE 104 mmol/L 100-110 CO2 22 meq/L 20-30 CREATININE, Serum 0.80 mg/dL 0.50-1.40 eGFR(CKD-EPI 2020) >90 mL/min >60 Immunizations: All administered on the encounter date This section contains immunizations associated to the Encounter. Immunization Series Date Issued Reaction Comments COVID-19 (MODERNA), MRNA, LN P-S, PF, 50 MCG/0.5 ML (AGES 12+ YEARS) Feb 17, 2024 INFLUENZA, HIGH-DOSE, TRIVALENT, PF Feb 16 Social History: Smoking Status (Most current) and [...] VA-TOBACCO FORMER USER [place] [facility] Tobacco Use History This section includes a history of the smoking, or tobacco-related health factors, that were collected on or before the date of the Encounter. The data comes from the [place] facility where the Encounter took place. Date/Time Smoking Status/Tobac co Use Comment Facility Apr 05, 2023 11:30 AM VA-TOBACCO QUIT 15 YRS OR MORE [facility] Dec 28, 2021 09:30 AM VA-TOBACCO FORMER USER [facility] Dec 28, 2021 09:30 AM VA-TOBACCO QUIT 15 YRS OR MORE [facility] Dec 02, 2020 09:00 AM VA-TOBACCO FORMER USER [place] [facility] Dec 02, 2020 09:00 AM VA-TOBACCO QUIT 15 YRS OR MORE [place] [facility] Aug 18, 2019 03:19 PM VA-TOBACCO FORMER USER [place] [facility] Aug 18, 2019 03:19 PM VA-TOBACCO QUIT 15 YRS OR MORE [place] [facility] September 23, 2018 09:58 AM VA-TOBACCO FORMER USER [place] [facility] September 23, 2018 09:58 AM VA-TOBACCO QUIT 15 YRS OR MORE [facility] September 30, 2017 09:20 AM QUIT TOBACCO USE > 7 YEARS AGO [facility] Aug 20, 2016 09:17 AM QUIT TOBACCO USE > 7 YEARS AGO quit 1991 [place] [facility] Jun 27, 2016 09:45 AM CURRENT SMOKER Quit 25 years ago [facility] Apr 18, 2015 09:06 AM QUIT TOBACCO USE > 7 YEARS AGO quit in 1991 [place] [facility] Mar 21, 2005 10:12 AM HISTORY OF SMOKING [place] [facility] Mar 21, 2005 10:12 AM QUIT TOBACCO USE > 7 YEARS AGO [facility] Advance Directives: All historical and current Section [...] Feb 04, 2019 ADVANCE DIRECTIVE [facility] Encounter Notes: All associated encounter notes This section contains the clinical notes associated to the Encounter. Date/Time Encounter Note(s) Provider Source Feb 17, 2024 11:19 AM PREVENTIVE MEDICIN E NURSING NOTE: LOCAL TITLE: CLINICAL REMINDERS/NURSING STANDARD TITLE: PREVENTIVE MEDICINE NURSING NOTE DATE OF NOTE: FEB 17, 2024@11:19 ENTRY DATE: FEB 17, 2024@11:19:22 AUTHOR: RADHA WEIR EXP COSIGNER: URGENCY: STATUS: COMPLETED Influenza Immunization: Influenza, High-Dose, Trivalent, Preservative Free (Fluzone-Syringe) Administered: INFLUENZA, HIGH-DOSE, TRIVALENT, PF Date Administered: Feb 17, 2024 11:00 Patient Relations Coordinator: SANOFI PASTEUR Lot: [id number] Exp Date: Nov 16, 2024 ND: [id number] Admin Route/Site: INTRAMUSCULAR/LEFT DELTOID Dosage: 0.5mL Vaccine Information Statement(s): INFLUENZA(FLU) VACC(INACTIVATED OR RECOMBINANT)VIS Dec 23, 2020 (MAURITANIAN) Order By: Policy Administered By: Radha Weir The Influenza Vaccine Information Statement (VIS) was reviewed with the patient/caregiver which lists the benefits and risks of the vaccine and the risks of not receiving the Influenza vaccine. The patient/caregiver denied any prior severe reaction to this vaccine or its components or a severe allergic reaction, such as anaphylaxis, to any vaccine or any injectable therapy. The patient/caregiver gave verbal consent to receive the vaccine. COVID-19 Immunization: Moderna Monovalent (Spikevax) Administered: COVID-19 (MODERNA), MRNA, LNP-S, PF, 50 MCG/0.5 ML (AGES 12+ YEARS) Date Administered: Feb 17, 2024 11:00 Series: Booster Patient Relations Coordinator: [employer]. Lot: [id number] Exp Date: October 09, 2024 [facility]: [id number] Admin Route/Site: INTRAMUSCULAR/RIGHT DELTOID Dosage: 0.5mL Vaccine Information Statement(s): COVID-19 MRNA VACCINE (12+ YRS) VACCINE VIS Mar 07, 2023 (MAURITANIAN) Order By: Policy Administered By: Radha Weir Vaccine administered without complications. /skinny/ Radha Weir MSN RN CNL Primary Care RN Signed: 02/17/2024 11:20 RADHA WEIR [facility]
--- OUTSIDE RECORDS SUMMARY | 2024-05-29 10:32 | XMS_ITS | Encounter Summary ---
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 Role Phone STACEY HORTON Primary [facility] Insurance Providers: All historical and current Section [...] STAND YON SELF May 29, 2001 [id number] Abdullahi SEVERINO PATIENT MEDICARE (WNR) MEDICARE (M) PART B Jul 18, 2012 PART B [id number] Abdullahi SEVERINO PATIENT MEDICARE (WNR) MEDICARE (M) PART B Jul 18, 2012 PART B [id number] Abdullahi SEVERINO PATIENT MEDICARE (WNR) MEDICARE (M) PART B Jul 18, 2012 PART B [id number] [phone] Abdullahi SEVERINO PATIENT MEDICARE (WNR) MEDICARE (M) PART A Dec 19, 2011 PART A [id number] Abdullahi SEVERINO PATIENT MEDICARE (WNR) MEDICARE (M) PART A Dec 19, 2011 PART A [id number] Abdullahi SEVERINO PATIENT MEDICARE (WNR) MEDICARE (M) PART A Dec 19, 2011 PART A [id number] Abdullahi SEVERINO PATIENT Selected Encounter This section includes the information on record at [place] for the Encounter. Date/Time Encounter Type Encounter Description Reason Provider Source Feb 21, 2024 02:02 PM Outpatient Encounter TELEPHONE/MEDICI NE ICD-10-CM E11.9 Type 2 diabetes mellitus without complications DEISY VELASCO Afshin Encounter Template Text not used by [place] Assessments - Encounter Diagnoses This section includes the primary and secondary diagnoses documented for the Encounter. Date/Time Primary/Secondary Diagnosis Diagnosis Name Provider Source Feb 21, 2024 02:02 PM PRIMARY Type 2 diabetes mellitus without complications DEISY VELASCO [facility] Plan of Treatment: Future Appointments (+ 6 months) and Future Tests (+/- 45 days) The Plan of Treatment section includes future care activities for the patient from all [place] [facility]. This section includes future appointments and [...] 05, 2024 01:30 PM AMBULATORY - MEDICINE [facility] [place] [facility] Mar 25, 2024 01:00 PM [facility] Apr 06, 2024 10:00 AM AMBULATORY - MEDICINE [place] [facility] [place] [facility] Apr 23, 2024 10:45 AM AMBULATORY - NONE [place] [facility] [place] [facility] Apr 29, 2024 10:00 AM AMBULATORY - MEDICINE [facility] [place] [facility] Jun 01, 2024 11:30 AM AMBULATORY - MEDICINE [facility] [place] [facility] Active, Pending, and Scheduled Orders This section [...] MICROALBUMIN CREATININE RATIO PANEL URINE (RANDOM) SP [facility] Lab Results: +/- 30 days of the [...] Range Comment Feb 21, 2024 08:31 AM [facility] HEMOGLOBIN A1C PANEL Specimen Type: BLOOD Comment: [...] Dec 05, 2023 10:51 AM Reporting Lab: [facility] [address] [facility] [address] Performing Lab: [address] [address] HEMOGLOBIN A1C 6.0 H 4.0-5.6 Feb 21, 2024 08:31 AM [facility] MICROALBUMIN CREATININE RATIO PANEL Specimen Type: URINE No comment entered. Ordering Provider: DEISY VELASCO Report Released Date/Time: Dec 05, 2023 10:51 AM Reporting Lab: [facility] [address] [facility] [address] Performing Lab: [address] [address] MICROALBUMIN/C REATININE RATIO 37.8 mg/g H 0-29.9 MICROALBUMIN,Q UANTITATIVE 5.0 mg/dL RR UNAVAIL CREATININE URINE 132.11 mg/dL Feb 21, 2024 08:31 AM [facility] LIPID PANEL FASTING Specimen Type: SERUM No comment entered. Ordering Provider: DEISY VELASCO Report Released Date/Time: Dec 05, 2023 10:51 AM Reporting Lab: [facility] [address] [facility] [address] Performing Lab: [facility] [address] [facility] [address] CHOLESTEROL 102 mg/dL TRIGLYCERIDE 124 mg/dL 0-150 LDL calculated 44 mg/dL 0-129 CHOL/HDL 3.1 HDL CHOLESTEROL 33 mg/dL L 40-60 Feb 21, 2024 08:31 AM [facility] BASIC METABOLIC PANEL (non-fasting) Specimen Type: SERUM No comment entered. Ordering Provider: DEISY VELASCO Report Released Date/Time: Dec 05, 2023 10:51 AM Reporting Lab: [facility] [address] [facility] [address] Performing Lab: [address] [address] UREA NITROGEN 15 mg/dL 7-25 GLUCOSE 183 [...] 05, 2023 11:30 AM VA-TOBACCO FORMER USER [facility] Tobacco Use History This section includes a history of the smoking, or tobacco-related health factors, that were collected on or before the date of the Encounter. The data comes from the [place] facility where the Encounter took place. Date/Time Smoking Status/Tobac co Use Comment Facility Apr 05, 2023 11:30 AM VA-TOBACCO QUIT 15 YRS OR MORE [place] [facility] [place] [facility] Dec 28, 2021 09:30 AM VA-TOBACCO FORMER USER [place] [facility] [place] [facility] Dec 28, 2021 09:30 AM VA-TOBACCO QUIT 15 YRS OR MORE [place] [facility] [place] [facility] Dec 02, 2020 09:00 AM VA-TOBACCO FORMER USER [place] [facility] [place] [facility] Dec 02, 2020 09:00 AM VA-TOBACCO QUIT 15 YRS OR MORE [place] [facility] [place] [facility] Aug 18, 2019 03:19 PM VA-TOBACCO FORMER USER [place] [facility] [place] [facility] Aug 18, 2019 03:19 PM VA-TOBACCO QUIT 15 YRS OR MORE [place] [facility] [place] [facility] September 23, 2018 09:58 AM VA-TOBACCO FORMER USER [place] [facility] [place] [facility] September 23, 2018 09:58 AM VA-TOBACCO QUIT 15 YRS OR MORE [place] [facility] [place] [facility] September 30, 2017 09:20 AM QUIT TOBACCO USE > 7 YEARS AGO [place] [facility] [place] [facility] Aug 20, 2016 09:17 AM QUIT TOBACCO USE > 7 YEARS AGO quit 1991 [place] [facility] [place] [facility] Jun 27, 2016 09:45 AM CURRENT SMOKER Quit 25 years ago [place] [facility] [place] [facility] Apr 18, 2015 09:06 AM QUIT TOBACCO USE > 7 YEARS AGO quit in 1991 [place] [facility] [place] [facility] Mar 21, 2005 10:12 AM HISTORY OF SMOKING [place] [facility] [place] [facility] Mar 21, 2005 10:12 AM QUIT TOBACCO USE > 7 YEARS AGO [place] [facility] [place] [facility] Advance Directives: All historical and current Section [...] DIRECTIVE CESAR LUA [place] [facility] Encounter Notes: All associated encounter notes This section contains the clinical notes associated to the Encounter. Date/Time Encounter Note(s) Provider Source Feb 21, 2024 02:02 PM PHYSICIAN NOTE: LOCAL TITLE: MD NOTE STANDARD TITLE: PHYSICIAN NOTE DATE OF NOTE: FEB 21, 2024@14:02 ENTRY DATE: FEB 21, 2024@14:02:54 AUTHOR: DEISY VELASCO COSIGNER: URGENCY: STATUS: COMPLETED NOTE Has ADDENDA DM 2 On U500 80/60/80. Advised of all recent labs. Having low bg o/n TIW. Decrease evening U500 dose to 65 units. We have an upcoming visit. 5 min telephone encounter. /eusebio VELASCO MD STAFF PHYSICIAN Signed: 02/21/2024 14:05 02/21/2024 ADDENDUM STATUS: COMPLETED Reviewed all recent labs. /eusebio VELASCO MD STAFF PHYSICIAN Signed: 02/21/2024 14:05 DEISY VELASCO [facility]
--- OUTSIDE RECORDS SUMMARY | 2024-05-29 10:32 | XMS_ITS ---
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 Role Phone STACEY HORTON Primary Care [...] STAND OYN SELF May 29, [phone] [id number] Abdullahi SEVERINO PATIENT MEDICARE (WNR) MEDICARE (M) PART B Jul 18, 2012 PART B [id number] Abdullahi SEVERINO PATIENT MEDICARE (WNR) MEDICARE (M) PART B Jul 18, 2012 PART B [id number] [phone] Abdullahi SEVERINO PATIENT MEDICARE (WNR) MEDICARE (M) PART B Jul 18, 2012 PART B [id number] Abdullahi SEVERINO PATIENT MEDICARE (WNR) MEDICARE (M) PART A Dec 19, 2011 PART A [id number] [phone] Abdullahi SEVERINO PATIENT MEDICARE (WNR) MEDICARE (M) PART A Dec 19, 2011 PART A [id number] Abdullahi SEVERINO PATIENT MEDICARE (WNR) MEDICARE (M) PART A Dec 19, 2011 PART A [id number] Abdullahi SEVERINO PATIENT Selected Encounter This section includes the information on record at OR for the Encounter. Date/Time Encounter Type Encounter Description Reason Pro vider Source Feb 26, 2024 03:32 PM Outpatient Encounter TELEPHONE PRIMARY CARE IHE [...] The data comes from all [place] treatment [facility]. Appointment Date/Time Appointment Type Appointme nt Facility Name Mar 05, 2024 01:30 PM AMBULATORY - MEDICINE [place] [facility] Mar 25, 2024 01:00 PM [facility] Apr 06, 2024 10:00 AM AMBULATORY - MEDICINE [place] [facility] Apr 23, 2024 10:45 AM AMBULATORY - [facility] [place] [facility] Apr 29, 2024 10:00 AM AMBULATORY - MEDICINE [place] C [place] [place] [facility] Jun 01, 2024 11:30 AM AMBULATORY - MEDICINE [facility] [place] [facility] Active, Pending, and Scheduled Orders This section includes a listing of several types of active, pending, and scheduled orders, including clinic medications orders, diagnostic test orders, procedure orders and consult orders; where the start date of the order is 45 days before the date of the Encounter or 45 days after the date of theEncounter. The data comes from all [facility]. Test Date/Time Test Type Test Details Facility Name Mar 05, 2024 12:00 AM Laboratory - Chemistry Order MICROALBUMIN CREATININE RATIO PANEL URINE (RANDOM) SP [facility] Lab Results: +/- 30 days [...] Range Comment Feb 21, 2024 08:31 AM [facility] HEMOGLOBIN A1C PANEL Specimen Type: BLOOD [...] Dec 05, 2023 10:51 AM Reporting Lab: [facility] [address] [facility] [address] Performing Lab: [address] [address] HEMOGLOBIN A1C 6.0 H 4.0-5.6 Feb 21, 2024 08:31 AM [facility] MICROALBUMIN CREATININE RATIO PANEL Specimen Type: URINE No comment entered. Ordering Provider: DEISY VELASCO Report Released Date/Time: Dec 05, 2023 10:51 AM Reporting Lab: [address] [address] Performing Lab: [address] [address] MICROALBUMIN/C REATININE RATIO 37.8 mg/g H 0-29.9 MICROALBUMIN,Q UANTITATIVE 5.0 mg/dL RR UNAVAIL CREATININE URINE 132.11 mg/dL Feb 21, 2024 08:31 AM [facility] BASIC METABOLIC PANEL (non-fasting) Specimen Type: SERUM No comment entered. Ordering Provider: DEISY VELASCO Report Released Date/Time: Dec 05, 2023 10:51 AM Reporting Lab: [facility] [address] [facility] [address] Performing Lab: [address] [address] UREA NITROGEN 15 mg/dL 7-25 GLUCOSE 183 mg/dL H 65-100 SODIUM 137 mmol/L 135-145 POTASSIUM 4.3 mmol/L 3.5-5.0 CHLORIDE 104 mmol/L 100-110 CO2 22 meq/L 20-30 CREATININE, Serum 0.80 mg/dL 0.50-1.40 eGFR(CKD-EPI 2020) >90 mL/min >60 Feb 21, 2024 08:31 AM [facility] LIPID PANEL FASTING Specimen Type: SERUM No comment entered. Ordering Provider: DEISY VELASCO Report Released Date/Time: Dec 05, 2023 10:51 AM Reporting Lab: [address] [address] Performing Lab: [address] [address] CHOLESTEROL 102 mg/dL TRIGLYCERIDE 124 mg/dL 0-150 LDL calculated 44 mg/dL 0-129 CHOL/HDL 3.1 HDL CHOLESTEROL 33 mg/dL L 40-60 Social History: Smoking Status (Most current) and [...] took place. Date/Time Current Smoking Status Comment [facility] Apr 05, 2023 11:30 AM VA-TOBACCO FORMER USER [facility] Tobacco Use History This section includes a history of the smoking, or tobacco-related health factors, that were collected on or before the date of the Encounter. The data comes from the [place] facility where the Encounter took place. Date/Time Smoking Status/Tobac co Use Comment Facility Apr 05, 2023 11:30 AM OR-TOBACCO QUIT 15 YRS OR MORE [facility] Dec 28, 2021 09:30 AM VA-TOBACCO FORMER USER [place] [facility] [place] [facility] Dec 28, 2021 09:30 AM VA-TOBACCO QUIT 15 YRS OR MORE [place] [facility] [place] [facility] Dec 02, 2020 09:00 AM VA-TOBACCO FORMER USER [place] [facility] [place] [facility] Dec 02, 2020 09:00 AM VA-TOBACCO QUIT 15 YRS OR MORE [place] [facility] Aug 18, 2019 03:19 PM VA-TOBACCO FORMER USER [place] [facility] [place] [facility] Aug 18, 2019 03:19 PM VA-TOBACCO QUIT 15 YRS OR MORE [place] [place] [facility] September 23, 2018 09:58 AM VA-TOBACCO FORMER USER [place] [facility] [place] [facility] September 23, 2018 09:58 AM VA-TOBACCO QUIT 15 YRS OR MORE [place] [place] [facility] September 30, 2017 09:20 AM QUIT TOBACCO USE > 7 [facility] A[facility] [place] [facility] Aug 20, 2016 09:17 AM QUIT TOBACCO USE > 7 YEARS AGO quit [facility] [place] [facility] Jun 27, 2016 09:45 AM CURRENT SMOKER Quit 25 years ago [facility] [place] [facility] Apr 18, 2015 09:06 AM QUIT TOBACCO USE > 7 YEARS AGO quit in 1991 [place] [place] [facility] Mar 21, 2005 10:12 AM [facility] Mar 21, 2005 10:12 AM QUIT TOBACCO USE > 7 YE[facility] A[facility] Advance Directives: All historical and [...] 04, 2019 ADVANCE DIRECTIVE CESAR LUA [facility] Encounter Notes: All associated encounter notes This section contains the clinical notes associated to the Encounter. Date/Time Encounter Note(s) Provider Source Feb 26, 2024 03:32 PM CARE COORDINATION HOME TELEHEALTH NOTE: LOCAL TITLE: HT NOTE STANDARD TITLE: CARE COORDINATION HOME TELEHEALTH NOTE DATE OF NOTE: FEB 26, 2024@15:32 ENTRY DATE: FEB 26, 2024@15:32:19 AUTHOR: TOÑO LORD COSIGNER: URGENCY: STATUS: COMPLETED HT ALERT: Has new sores/cuts/red spots/blisters on feet or toeCARL Cole (-[id number]) Vital Sign for: 01/28/2024 - 02/26/2024 (All times are EST; All weights are lbs) Primary DMP: VHA-Wt Mgmt Comorbid(s): DM/HTN Summary Weight Sys BP Krishnamurthy BP HR Glu Pain High 159 93 87 226 Low 114 55 53 70 Average 135 68 69 150 Date Time Wt Time Sys Krishnamurthy HR Time Glu Time Pain 02/26/2024 13:48 124/68 67 13:36 101 02/25/2024 - 09:49 116/93 79 09:35 115 02/24/2024 - 10:26 134/76 75 10:08 145 02/23/2024 - 10:37 132/63 55 10:14 110 02/22/2024 - 18:18 138/69 71 18:10 223 02/21/2024 - 21:04 123/68 65 20:40 147 02/20/2024 - 11:43 130/67 71 11:30 70 02/19/2024 - 15:42 139/79 74 15:30 116 02/18/2024 - 18:54 119/60 87 18:00 87 02/17/2024 - 15:57 145/62 63 15:21 111 02/16/2024 - 12:29 134/75 59 12:10 178 02/15/2024 - 12:14 126/61 66 12:02 180 02/14/2024 - 09:12 114/61 53 09:00 188 02/13/2024 - 09:21 135/71 80 09:12 150 02/12/2024 - 07:48 131/68 72 - 02/12/2024 - 07:28 159/66 78 07:15 170 02/11/2024 - 09:26 145/70 71 09:07 226 02/10/2024 - 12:31 145/68 58 - 02/10/2024 - 11:48 159/71 58 11:39 144 02/09/2024 - 12:24 136/72 77 12:00 134 02/08/2024 - 13:23 130/69 69 - 02/08/2024 - 13:08 147/55 63 12:40 130 02/07/2024 - 11:25 128/63 77 - 02/07/2024 - - - 11:04 192 02/06/2024 - 08:25 127/61 76 08:23 190 02/05/2024 - 10:39 152/69 66 10:38 190 Source: [employer]; [employer] Called [place] to review above infomration, assess for change in condition, meidcation review/compliance, address any questions/concerns and to scedle 6 month telephone review. [employer] reached 's self identified VM, left a hippa compliant VM requesting return the call. Also provided with call back information. Will continue to monitor and folllow up accordingly. /skinny/ TOÑO LORD RN [facility]-Home Telehealth Acid Wash Operator Signed: 02/26/2024 15:34 TOÑO LORD OR [facility]
--- OUTSIDE RECORDS SUMMARY | 2024-05-29 10:32 | XMS_ITS | Encounter Summary ---
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 Role Phone STACEY HORTON Primary [...] STAND YON SELF May 29, [phone] [id number] Abdullahi SEVERINO PATIENT MEDICARE (WNR) MEDICARE (M) PART B Jul 18, 2012 PART B [id number] [phone] Abdullahi SEVERINO PATIENT MEDICARE (WNR) MEDICARE (M) PART B Jul 18, 2012 PART B [id number] Abdullahi SEVERINO PATIENT MEDICARE (WNR) MEDICARE (M) PART B Jul 18, 2012 PART B [id number] [phone] Abdullahi SEVERINO PATIENT MEDICARE (WNR) MEDICARE (M) PART A Dec 19, 2011 PART A [id number] Abdullahi SEVERINO PATIENT MEDICARE (WNR) MEDICARE (M) PART A Dec 19, 2011 PART A [id number] Abdullahi SEVERINO PATIENT MEDICARE (WNR) MEDICARE (M) PART A Dec 19, 2011 PART A [id number] Abdullahi SEVERINO PATIENT Selected Encounter This section includes the information on record at [place] for the Encounter. Date/Time Encounter Type Encounter Description Reason Provider Source Feb 17, 2024 03:03 PM Outpatient Encounter HT NON-VIDEO MONITORING ICD-10-CM E11.9 Type 2 diabetes mellitus without complications [facility] Encounter Template Text not used by [place] Assessments - Encounter Diagnoses This section includes the primary and secondary diagnoses documented for the Encounter. Date/Time Primary/Secondary Diagnosis Diagnosis Name Provider Source Feb 17, 2024 03:30 PM PRIMARY Type 2 diabetes mellitus without complications RISA,[facility] [place] [facility] Feb 17, 2024 03:30 PM SECONDARY Essential (primary) hypertension RISA,[facility] [place] [facility] Plan of Treatment: Future Appointments [...] - MEDICINE [place] [facility] Mar 25, 2024 01:00 PM [facility] Apr 06, 2024 10:00 AM AMBULATORY - MEDICINE [place] [facility] Apr 23, 2024 10:45 AM AMBULATORY - NONE [place] [facility] Apr 29, 2024 10:00 AM AMBULATORY - MEDICINE [place] [facility] Jun 01, 2024 11:30 AM AMBULATORY - MEDICINE [facility] Active, Pending, and Scheduled Orders This [...] MICROALBUMIN CREATININE RATIO PANEL URINE (RANDOM) SP [facility] Lab Results: +/- 30 days of the [...] Range Comment Feb 21, 2024 08:31 AM [facility] HEMOGLOBIN A1C PANEL Specimen Type: BLOOD Comment: [...] Dec 05, 2023 10:51 AM Reporting Lab: [facility] [address] [facility] [address] Performing Lab: [address] [address] HEMOGLOBIN A1C 6.0 H 4.0-5.6 Feb 21, 2024 08:31 AM [facility] MICROALBUMIN CREATININE RATIO PANEL Specimen Type: URINE No comment entered. Ordering Provider: DEISY VELASCO Report Released Date/Time: Dec 05, 2023 10:51 AM Reporting Lab: [address] [address] Performing Lab: [facility] [address] [facility] [address] MICROALBUMIN/C REATININE RATIO 37.8 mg/g H 0-29.9 MICROALBUMIN,Q UANTITATIVE 5.0 mg/dL RR UNAVAIL CREATININE URINE 132.11 mg/dL Feb 21, 2024 08:31 AM [facility] LIPID PANEL FASTING Specimen Type: SERUM No comment entered. Ordering Provider: DEISY VELASCO Report Released Date/Time: Dec 05, 2023 10:51 AM Reporting Lab: [facility] [address] [facility] [address] Performing Lab: [address] [address] CHOLESTEROL 102 mg/dL TRIGLYCERIDE 124 mg/dL 0-150 LDL calculated 44 mg/dL 0-129 CHOL/HDL 3.1 HDL CHOLESTEROL 33 mg/dL L 40-60 Feb 21, 2024 08:31 AM [facility] BASIC METABOLIC PANEL (non-fasting) Specimen Type: SERUM No comment entered. Ordering Provider: DEISY VELASCO Report Released Date/Time: Dec 05, 2023 10:51 AM Reporting Lab: [facility] [address] [facility] [address] Performing Lab: [address] [address] UREA NITROGEN 15 mg/dL 7-25 GLUCOSE 183 [...] VA-TOBACCO FORMER USER [place] [facility] Tobacco Use History This section includes a history of the smoking, or tobacco-related health factors, that were collected on or before the date of the Encounter. The data comes from the [place] facility where the Encounter took place. Date/Time Smoking Status/Tobac co Use Comment Facility Apr 05, 2023 11:30 AM VA-TOBACCO QUIT 15 YRS OR MORE [place] [facility] Dec 28, 2021 09:30 AM VA-TOBACCO FORMER USER [place] [facility] [place] [facility] Dec 28, 2021 09:30 AM VA-TOBACCO QUIT 15 YRS OR MORE [place] [facility] Dec 02, 2020 09:00 AM VA-TOBACCO FORMER USER [place] [facility] Dec 02, 2020 09:00 AM VA-TOBACCO QUIT 15 YRS OR MORE [place] [facility] Aug 18, 2019 03:19 PM VA-TOBACCO FORMER USER [place] [facility] Aug 18, 2019 03:19 PM VA-TOBACCO QUIT 15 YRS OR MORE [place] [facility] September 23, 2018 09:58 AM VA-TOBACCO FORMER USER [place] [facility] September 23, 2018 09:58 AM VA-TOBACCO QUIT 15 YRS OR MORE [place] [facility] September 30, 2017 09:20 AM QUIT TOBACCO USE > 7 YEARS AGO [place] [facility] Aug 20, 2016 09:17 AM QUIT TOBACCO USE > 7 YEARS AGO quit 1991 [place] [facility] Jun 27, 2016 09:45 AM CURRENT SMOKER Quit 25 years ago [place] [facility] Apr 18, 2015 09:06 AM QUIT TOBACCO USE > 7 YEARS AGO quit in 1991 [place] [facility] Mar 21, 2005 10:12 AM HISTORY OF SMOKING [place] [facility] [place] [facility] Mar 21, 2005 10:12 AM QUIT TOBACCO USE > 7 YEARS AGO [place] [facility] Advance Directives: All historical and [...] ADVANCE DIRECTIVE CESAR LUA [place] [facility] [facility] Encounter Notes: All associated encounter notes This section contains the clinical notes associated to the Encounter. Date/Time Encounter Note(s) Provider Source Feb 17, 2024 03:29 PM CARE COORDINATION HOME TELEHEALTH SUMMARIZATION NOTE: LOCAL TITLE: HT MONTHLY MONITOR NOTE STANDARD TITLE: CARE COORDINATION HOME TELEHEALTH SUMMARIZATION DATE OF NOTE: FEB 17, 2024@15:29 ENTRY DATE: FEB 17, 2024@15:29:09 AUTHOR: TOÑO LORD EXP COSIGNER: URGENCY: STATUS: COMPLETED The is enrolled in the Home Telehealth (HT) program and continues to be monitored via HT technology. The data sent by the is reviewed and analyzed by the HT staff, who provide ongoing case management and [place] [facility] education while communicating and collaborating with the health care team as appropriate. This note covers a total of 30 minutes for the month monitored. Month monitored: 2023 Dx: DM/HTN /es/ TOÑO LORD RN RPM-Home Telehealth Air Grinder Signed: 02/17/2024 15:31 TOÑO LORD [place] [facility]
--- OUTSIDE RECORDS SUMMARY | 2024-05-29 10:33 | XMS_ITS | Encounter Summary ---
Author Name [facility] [place] [facility] [place] Address [address] [place] [address] Care Team Providers Care Senior C Developer Name Role Phone STACEY HORTON Primary Care [...] STAND YON SELF May 29, [phone] [id number] Abdullahi WILEY PATIENT MEDICARE (WNR) MEDICARE (M) PART B Jul 18, 2012 PART B [id number] Abdullahi WILEY PATIENT MEDICARE (WNR) MEDICARE (M) PART B Jul 18, 2012 PART B [id number] Abdullahi WILEY PATIENT MEDICARE (WNR) MEDICARE (M) PART B Jul 18, 2012 PART B [id number] 96A Abdullahi WILEY PATIENT MEDICARE (WNR) MEDICARE (M) PART A Dec 19, 2011 PART A [id number] Abdullahi WILEY PATIENT MEDICARE (WNR) MEDICARE (M) PART A Dec 19, 2011 PART A [id number] 96A Abdullahi WILEY PATIENT MEDICARE (WNR) MEDICARE (M) PART A Dec 19, 2011 PART A [id number] 96A Abdullahi WILEY PATIENT Selected Encounter This section includes the information on record at [place] for the Encounter. Date/Time Encounter Type Encounter Description Reason Provider Source Mar 05, 2024 02:24 PM CONT GLUC MNTR ANALYSIS I&R ENDOCRINOLOGY ICD-10-CM E11.9 Type 2 diabetes mellitus without complications DEISY VELASCO Afshin Encounter Template Text not used by [place] Assessments - Encounter Diagnoses This section includes the primary and secondary diagnoses documented for the Encounter. Date/Time Primary/Secondary Diagnosis Diagnosis Name Provider Source Mar 05, 2024 02:24 PM PRIMARY Type 2 diabetes mellitus without complications DEISY VELASCO [facility] [place] [facility] Plan of Treatment: Future Appointments (+ [...] Appointment Type Appointme nt Facility Name Mar 25, 2024 01:00 PM [facility] Apr 06, 2024 10:00 AM AMBULATORY - MEDICINE [facility] [place] [facility] Apr 23, 2024 10:45 AM AMBULATORY - NONE [facility] [place] [facility] Apr 29, 2024 10:00 AM AMBULATORY - MEDICINE [facility] [place] [facility] Jun 01, 2024 11:30 AM AMBULATORY - MEDICINE [facility] [place] [facility] [...] MICROALBUMIN CREATININE RATIO PANEL URINE (RANDOM) SP [facility] Lab Results: +/- 30 days of [...] Range Comment Feb 21, 2024 08:31 AM [facility] HEMOGLOBIN [...] Dec 05, 2023 10:51 AM Reporting Lab: [facility] [address] [facility] [address] Performing Lab: [address] [address] HEMOGLOBIN A1C 6.0 H 4.0-5.6 Feb 21, 2024 08:31 AM [facility] MICROALBUMIN CREATININE RATIO PANEL Specimen Type: URINE No comment entered. Ordering Provider: DEISY VELASCO Report Released Date/Time: Dec 05, 2023 10:51 AM Reporting Lab: [facility] [address] [facility] [address] Performing Lab: [address] [address] MICROALBUMIN/C REATININE RATIO 37.8 mg/g H 0-29.9 MICROALBUMIN,Q UANTITATIVE 5.0 mg/dL RR UNAVAIL CREATININE URINE 132.11 mg/dL Feb 21, 2024 08:31 AM [facility] LIPID PANEL FASTING Specimen Type: SERUM No comment entered. Ordering Provider: DEISY VELASCO Report Released Date/Time: Dec 05, 2023 10:51 AM Reporting Lab: [facility] [address] [facility] [address] Performing Lab: [address] [address] CHOLESTEROL 102 mg/dL TRIGLYCERIDE 124 mg/dL 0-150 LDL calculated 44 mg/dL 0-129 CHOL/HDL 3.1 HDL CHOLESTEROL 33 mg/dL L 40-60 Feb 21, 2024 08:31 AM [facility] BASIC METABOLIC PANEL (non-fasting) Specimen Type: SERUM No comment entered. Ordering Provider: DEISY VELASCO Report Released Date/Time: Dec 05, 2023 10:51 AM Reporting Lab: [facility] [address] [facility] [address] Performing Lab: [address] [address] UREA NITROGEN 15 mg/dL 7-25 GLUCOSE 183 mg/dL H 65-100 SODIUM 137 mmol/L 135-145 POTASSIUM 4.3 mmol/L 3.5-5.0 CHLORIDE 104 mmol/L 100-110 CO2 22 meq/L 20-30 CREATININE, Serum 0.80 mg/dL 0.50-1.40 eGFR(CKD-EPI 2020) >90 mL/min >60 Vital Signs: All taken on the encounter date This section contains inpatient and outpatient Vital Signs collected on the date of the Encounter. Date/Time Temperature Pulse Blood Pressure Respiratory Rate SP02 Pain Height Weight Body Mass Index Source Mar 05, 2024 01:26 PM 97.9 71 148/65 16 98 4 229 32 [facility] Social History: Smoking Status (Most current) [...] 05, 2023 11:30 AM VA-TOBACCO FORMER USER [facility] [place] [facility] Tobacco Use History This section includes a history of the smoking, or tobacco-related health factors, that were collected on or before the date of the Encounter. The data comes from the [place] facility where the Encounter took place. Date/Time Smoking Status/Tobac co Use Comment [facility] Apr 05, 2023 11:30 AM VA-TOBACCO QUIT 15 YRS OR MORE [facility] [place] [facility] Dec 28, 2021 09:30 AM VA-TOBACCO FORMER USER [facility] [place] [facility] Dec 28, 2021 09:30 AM VA-TOBACCO QUIT 15 YRS OR MORE [facility] [place] [facility] Dec 02, 2020 09:00 AM VA-TOBACCO FORMER USER [facility] [place] [facility] Dec 02, 2020 09:00 AM VA-TOBACCO QUIT 15 YRS OR MORE [facility] [place] [facility] Aug 18, 2019 03:19 PM VA-TOBACCO FORMER USER [facility] [place] [facility] Aug 18, 2019 03:19 PM VA-TOBACCO QUIT 15 YRS OR MORE [facility] [place] [facility] September 23, 2018 09:58 AM VA-TOBACCO FORMER USER [facility] [place] [facility] September 23, 2018 09:58 AM VA-TOBACCO QUIT 15 YRS OR MORE [facility] [place] [facility] September 30, 2017 09:20 AM QUIT TOBACCO USE > 7 YEARS AGO [facility] [place] [facility] Aug 20, 2016 09:17 AM QUIT TOBACCO USE > 7 YEARS AGO quit 1991 [facility] [place] [facility] Jun 27, 2016 09:45 AM CURRENT SMOKER Quit 25 years ago [facility] [place] [facility] Apr 18, 2015 09:06 AM QUIT TOBACCO USE > 7 YEARS AGO quit in 1991 [facility] [place] [facility] Mar 21, 2005 10:12 AM HISTORY OF SMOKING [facility] [place] [facility] Mar 21, 2005 10:12 AM QUIT TOBACCO USE > 7 YEARS AGO [facility] [place] [facility] Advance [...] DIRECTIVE CESAR LUA [facility] Encounter Notes: All associated encounter notes This section contains the clinical notes associated to the Encounter. Date/Time Encounter Note(s) Provider Source Mar 05, 2024 02:24 PM PHYSICIAN NOTE: LOCAL TITLE: MD NOTE STANDARD TITLE: PHYSICIAN NOTE DATE OF NOTE: MAR 05, 2024@14:24 ENTRY DATE: MAR 05, 2024@14:24:48 AUTHOR: DEISY VELASCO COSIGNER: URGENCY: STATUS: COMPLETED Dx: Diabetes mellitus type 2 Pt Name: Otoniel Wiley Pt : 1945 MR# [id number] Indication for device placement Date placed: Feb 21 2024 Date removed (date to which the CPT code is linked): Mar 05 2024 Name of device placed: Freestyle lynn 3 glucose sensor date of printout of data: Date of interpretation: Mar 05 2024 Analysis of data (72 hours or more of monitoring required): Average 150, GMI 6.9% %CV 43.4% Very high 9% High 26% in range 55% low 7% Very low 3% MN 151, 4AM 159, 8AM 184, noon 189, 4PM 123, 8PM 102 Variability wide Interpretation of data He will take 45 gm CHO lunch at 11:30 daily and U500, rather than taking insulin without lunch, then eating lunch at 3PM. He would benefit from an increase in AM U500, a decrease in Noon U500, a decrease in dinner U500, and a small dose of U500 at bedtime. /skinny/ DEISY VELASCO MD STAFF PHYSICIAN Signed: 03/05/2024 19:18 DEISY VELASCO [facility]
--- OUTSIDE RECORDS SUMMARY | 2024-05-29 10:33 | XMS_ITS | Encounter Summary ---
Author Name [facility] [place] [facility] [place] Address [address] [place] [address] Care Team Providers Care Adult Secondary Education Instructor Name Role Phone STACEY AGGARWAL Primary [facility] STAND YON SELF May 29, [phone] [id number] Abdullahi WILEY PATIENT MEDICARE (WNR) MEDICARE (M) PART B Jul 18, 2012 PART B [id number] Abdullahi WILEY PATIENT MEDICARE (WNR) MEDICARE (M) PART B Jul 18, 2012 PART B [id number] 96A Abdullahi WILEY PATIENT MEDICARE (WNR) MEDICARE (M) PART B Jul 18, 2012 PART B [id number] [phone] Abdullahi WILEY PATIENT MEDICARE (WNR) MEDICARE (M) PART A Dec 19, 2011 PART A [id number] [phone] Abdullahi WILEY PATIENT MEDICARE (WNR) MEDICARE (M) PART A Dec 19, 2011 PART A [id number] Abdullahi WILEY PATIENT MEDICARE (WNR) MEDICARE (M) PART A Dec 19, 2011 PART A [id number] [id number] Abdullahi WILEY PATIENT Selected Encounter This section includes the information on record at [place] for the Encounter. Date/Time Encounter Type Encounter Description Reason Provider Source Apr 06, 2024 10:00 AM OFFICE O/P EST LOW 20 MIN PRIMARY CARE/MEDICINE ICD-10-CM I51.9 Heart disease, unspecified GILL AGGARWAL AM Afshin Encounter Template Text not used by [place] Assessments - Encounter Diagnoses This section includes the primary and secondary diagnoses documented for the Encounter. Date/Time Primary/Secondary Diagnosis Diagnosis Name Provider Source Apr 06, 2024 10:13 AM PRIMARY Heart disease, unspecified GILL AGGARWAL [facility] [place] [facility] Apr 06, 2024 10:13 AM SECONDARY Dyspnea, unspecified GILL AGGARWAL AM [facility] [place] [facility] Apr 06, 2024 10:13 AM SECONDARY Pain in right shoulder GILL AGGARWAL [facility] Plan of Treatment: Future Appointments (+ 6 months) and Future Tests (+/- 45 days) The Plan of Treatment section includes future care activities for the patient from all [place] treatmentfacilities. This section includes future appointments and future orders which are active, pending or scheduled. Future Appointments This section includes appointments that were scheduled to occur 6 months from the date of the Encounter, up to a maximum of 20 appointments. The data comes from all [place] treatment facilities. Appointment Date/Time Appointment Type Appointme nt Facility Name Apr 23, 2024 10:45 AM AMBULATORY - NONE [place] [place] [facility] Apr 29, 2024 10:00 AM AMBULATORY - MEDICINE [facility] Jun 01, 2024 11:30 AM AMBULATORY - MEDICINE [facility] [place] [facility] Sep 10, 2024 10:00 AM AMBULATORY - NONE [facility] Active, Pending, and Scheduled Orders This section includes a listing of several types of active, pending, and scheduled orders, including clinic medications orders, diagnostic test orders, procedure orders and consult orders; where the start date of the order is 45 days before the date of the Encounter or 45 days after the date of theEncounter. The data comes from all [place] treatment facilities. Test Date/Time Test Type Test Details Facility Name Mar 05, 2024 12:00 AM Laboratory - Chemistry Order MICROALBUMIN CREATININE RATIO PANEL URINE (RANDOM) SP [facility] Apr 29, 2024 10:07 AM Consult Order COMMUNITY CARE-MRI Cons Valve Grinder's Choice [facility] Vital Signs: All taken on the encounter date This section contains inpatient and outpatient Vital Signs collected on the date of the Encounter. Date/Time Temperature Pulse Blood Pressure Respiratory Rate SP02 Pain Height Weight Body Mass Index Source Apr 06, 2024 09:39 AM 97.5 76 138/63 20 98 7 71 230 32 [facility] Social History: Smoking Status (Most current) and Tobacco Use (All prior to encounter date) This section includes the most current, and the historical, smoking and tobacco- related health factors from the [place] facility where the Encounter took place. Current Smoking Status This section includes the most current smoking, or tobacco-related health factor, from the [place] facility where the Encounter took place. Date/Time Current Smoking Status Comment Therese duffy Apr 06, 2024 10:00 AM VA-TOBACCO FORMER USER [facility] Tobacco Use History This section includes a history of the smoking, or tobacco-related health factors, that were collected on or before the date of the Encounter. The data comes from the [place] facility where the Encounter took place. Date/Time Smoking Status/Tobac co Use Comment Facility Apr 06, 2024 10:00 AM [place]-TOBACCO QUIT 15 YRS OR MORE [facility] Apr 05, 2023 11:30 AM VA-TOBACCO FOR[facility]ER [facility] Apr 05, 2023 11:30 AM [place]-TOBACCO QUIT 15 YRS OR MORE [facility] Dec 28, 2021 09:30 AM VA-TOBACCO FORMER USER [facility] [place] [facility] Dec 28, 2021 09:30 AM VA-TOBACCO QUIT 15 YRS OR MORE [facility] [place] [facility] Dec 02, 2020 09:00 AM VA-TOBACCO FORMER USER [facility] [place] [facility] Dec 02, 2020 09:00 AM VA-TOBACCO QUIT 15 YRS OR MORE [facility] [place] [facility] Aug 18, 2019 03:19 PM VA-TOBACCO FORMER USER [facility] [place] [facility] Aug 18, 2019 03:19 PM VA-TOBACCO QUIT 15 YRS OR MORE [facility] [place] [facility] September 23, 2018 09:58 AM VA-TOBACCO FORMER USER [facility] [place] [facility] September 23, 2018 09:58 AM VA-TOBACCO QUIT 15 YRS OR MORE [facility] [place] [facility] September 30, 2017 09:20 AM QUIT TOBACCO USE > 7 YEARS AGO [facility] [place] [facility] Aug 20, 2016 09:17 AM QUIT TOBACCO USE > 7 YEARS AGO quit [facility] [place] [facility] Jun 27, 2016 09:45 AM CURRENT SMOKER Quit 25 years ago [facility] [place] [facility] Apr 18, 2015 09:06 AM QUIT TOBACCO USE > 7 YEARS AGO quit in 1991 [facility] [place] [facility] Mar 21, 2005 10:12 AM HISTORY OF SMOKING [facility] [place] [facility] Mar 21, 2005 10:12 AM QUIT TOBACCO USE > 7 YEARS AGO [facility] Advance Directives: All historical and current Section Date Range: From patient's date of to the date document was created. This section includes ALL of a patient's completed or amended [place] Advance and Rescinded Directives. The entries below indicate that a directive exists for the patient, but an actual copy is not included with this document. The data comes from all [place] facilities. Date Advance Directives Provider Source Feb 04, 2019 ADVANCE DIRECTIVE CESAR LUA [facility] Encounter Notes: All associated encounter notes This section contains the clinical notes associated to the Encounter. Date/Time Encounter Note(s) Provider Source Apr 06, 2024 10:03 AM PRIMARY CARE NURSE PRACTITIONER OUTPATIENT NOTE: LOCAL TITLE: NURSE PRACTITIONER OUTPATIENT NOTE STANDARD TITLE: PRIMARY CARE NURSE PRACTITIONER OUTPATIENT NOTE DATE OF NOTE: APR 06, 2024@10:03 ENTRY DATE: APR 06, 2024@10:03:35 AUTHOR: STACEY AGGARWAL COSIGNER: URGENCY: STATUS: COMPLETED NURSE PRACTITIONER OUTPATIENT NOTE Has ADDENDA Chief complaint: Patient is a 79 year old [place]. HPI: here today to follow up. He reports shortness of breath for the past 4-6 weeks and increased congestion past 2 days. No fevers. He is notable for becoming sob while talking with me. He denies chest pain. I suggested ER evaluation. He is in agreement. I advised that we call 911 to expedite this evaluation safely. He declines this recommendation and wants to take his own car. I explained risks, he continues to decline 911. We will provide transport assist to his car. He also reports worsening right shoulder pain, past 3-4 months. Some limited ROM, i will place consult for MRI. Allergies: DEMEROL 100MG/ML CARTRIDGE The following VA and Non-VA meds were reconciled with patient. The patient was educated on the use of the medications including indication and side effects. Active and Recently Outpatient Medications (excluding Supplies): Active Outpatient Medications Status 1) ACCU-CHEK GUIDE (GLUCOSE) TEST STRIP USE 1 STRIP TO ACTIVE TEST BLOOD SUGARS THREE TIMES A DAY FOR SENSOR FAILURE 2) AMLODIPINE BESYLATE 10MG TAB TAKE ONE TABLET BY MOUTH ACTIVE ONCE DAILY FOR BLOOD PRESSURE/HEART, DO NOT TAKE WITH GRAPEFRUIT JUICE 3) ATORVASTATIN CALCIUM 80MG TAB TAKE ONE TABLET BY ACTIVE MOUTH ONCE DAILY FOR CHOLESTEROL 4) EMPAGLIFLOZIN 25MG TAB TAKE ONE TABLET BY MOUTH ONCE ACTIVE DAILY FOR DIABETES 5) FENOFIBRATE 145MG TAB TAKE ONE TABLET BY MOUTH ONCE ACTIVE DAILY FOR HIGH CHOLESTEROL 6) FISH OIL 1000MG (500MG DHA/EPA) CAP TAKE TWO CAPSULES HOLD BY MOUTH TWICE DAILY 7) HYDROCHLOROTHIAZIDE 25MG TAB TAKE ONE TABLET BY MOUTH ACTIVE ONCE DAILY FOR HIGH BLOOD PRESSURE 8) INSULIN CONC REG HUM 500 UNT/ML KWIKPEN INJECT ACTIVE DIRECTED SUBCUTANEOUSLY FOUR TIMES A DAY FOR DIABETES MELLITUS 80 UNITS AM, 50 UNITS 11:30 AM, 50 UNITS EVENING MEAL, 10 UNITS AT BEDTIME 9) METFORMIN HCL 500MG TAB TAKE ONE TABLET BY MOUTH ACTIVE TWICE DAILY FOR DIABETES 10) METOPROLOL SUCCINATE 25MG SA TAB TAKE ONE TABLET BY ACTIVE MOUTH ONCE DAILY FOR HIGH BLOOD PRESSURE 11) SEMAGLUTIDE 2MG/0.75ML INJ PEN 3ML INJECT 2MG ACTIVE SUBCUTANEOUSLY ONCE A WEEK 12) SPIRONOLACTONE 25MG TAB TAKE ONE TABLET BY MOUTH ONCE ACTIVE DAILY 13) VALSARTAN 320MG TAB TAKE ONE TABLET BY MOUTH ONCE ACTIVE DAILY FOR HIGH BLOOD PRESSURE Inactive Outpatient Medications Status 1) GLUCAGON 1MG/CESAR INJ EMERGENCY KIT INJECT 1 INJECTION INTRAMUSCULARLY ONE TIME NEEDED FOR LOW BLOOD SUGAR Active Non-VA Medications Status 1) Non-VA AMLODIPINE BESYLATE 5MG TAB 5MG BY MOUTH ONCE ACTIVE DAILY 2) Non-VA ASPIRIN 81MG EC TAB 81MG BY MOUTH ONCE DAILY ACTIVE 16 Total Medications Review of Systems: Constitutional: (-)for Fevers, chills, weakness, nights sweats On examination: 97.5 F [36.4 C] (04/06/2024 09:39)138/63 (04/06/2024 09:39)76 (04/06/2024 09:39)20 (04/06/2024 09:39)7 (04/06/2024 09:39)BMI: 32.1230 lb [104.33 kg] (04/06/2024 09:39) [place] is alert and oriented X3 Neck: supple without masses, trachea midline, ln not palpable, no thyromegaly Cardiovasc: 2plus carotids without bruits, no JVD Heart Reguler rate and rhythm NL S1S2 no S3 or murmur Respiration: lungs clear, noted SOB when he talks ABD: Benign normal active bowel sounds no HSM no rebound or referred pain EXT: no clubbing, edema, or cyanosis All diagnostics from past month were reviewed with patient. Assessment/plan: Active problems - Computerized Problem List is the source for the following: SOB - see above Review of medial record = 5mins Time spent with Patient including shared decision making = 20 mins Post visit documentation = 5mins Total time = 30 mins Follow up visit in 2-3 weeks. Medication Reconciliation: Outpatient: Has the patient been [...] whether with a VA or non-VA provider. /skinny/ Stacey Aggarwal DNP, SENIOR GEOLOGIST-BC, CNL Primary Care Nurse Practitioner Signed: 04/06/2024 10:12 04/17/2024 ADDENDUM STATUS: COMPLETED Taken from [facility]: [facility] ED DOS: 04/06/24 HPI: The patient, Otoniel Wiley,is a 79 y.o. male who presents for evaluation of Shortness of Breath [facility]. Patient states that he has had shortness of breath for approximately 3 or 4 weeks. Had knee surgery preceding onset of shortness of breath (right knee replacement in September, left knee replacement in December). States that he was not too concerned, however over the past several days has developed cold-like symptoms with occasionally productive cough, congestion. Denies any chest pain. Denies any nausea, vomiting, abdominal pain, diarrhea, constipation, urinary symptoms, fevers. No recent travel, no sick contacts. No leg swelling, redness, warmth noted. Patient is not on any blood thinners. Currently completing last day of amoxicillin following dental procedure. MDM: 79-year-old with significant past medical history of hyperlipidemia, hypertension, diabetes, [place] the [place] for [place] of shortness of breath for 1 month with 3 days of cold-like symptoms. Seen and evaluated. Patient is afebrile with stable vital signs on arrival. Positive for Covid 19- Patient candidate for Paxlovid. Discussed risks versus benefits and patient is interested in Paxlovid. Will update patient's medications and consult pharmacy regarding any medication interactions. [SK] 1829 CT not showing any concern for an embolism. Did note mild patchy ground opacity likely infectious or inflammatory, and given that patient has had symptoms for 4 days, doubt that this is pneumonia at this time. Also noted to have a 5 mm subpleural nodule in the right lower lobe which I recommend he follow-up with his PCP for. Medications reviewed and patient is candidate for Paxlovid while holding atorvastatin. Discussed this with patient and he is agreeable to continue with the medication. Discussed follow-up with primary care, symptomatic treatment, and strict return precautions. Patient expressed understanding. Discharged in stable condition. /skinny/ Radha Bustillo MSN RN CNL Primary Care RN Signed: 04/17/2024 10:07 STACEY AGGARWAL [facility] [place] [facility] Apr 06, 2024 09:43 AM PREVENTIVE MEDICINE NURSING NOTE: LOCAL TITLE: CLINICAL REMINDERS/NURSING STANDARD TITLE: PREVENTIVE MEDICINE NURSING NOTE DATE OF NOTE: APR 06, 2024@09:43 ENTRY DATE: APR 06, 2024@09:43:48 AUTHOR: BRETT BEAN COSIGNER: URGENCY: STATUS: COMPLETED Advance Directive Screen MH AD: Patient has an Advance Directive on file at this [facility]. No updates are needed at this time. The patient received education about Advance Directives and written notification of his/her rights. Depression Screening: Perform PHQ-2 A PHQ-2 screen was performed. The score was 0 which is a negative screen for depression. Over the past two weeks, how often have you been bothered by the following problems? 1. Little interest or pleasure in doing things Not at all 2. Feeling down, depressed, or hopeless Not at all Depression Screening: Perform PHQ-2 A PHQ-2 screen was performed. The score was 0 which is a negative screen for depression. Over the past two weeks, how often have you been bothered by the following problems? 1. Little interest or pleasure in doing things Not at all 2. Feeling down, depressed, or hopeless Not at all Tobacco Use Screening: The patient is a former tobacco user. The patient quit fifteen or more years ago. Alcohol Use Screen (AUDIT-C): Alcohol Screen: SCREEN FOR ALCOHOL (AUDIT-C) An alcohol screening test (AUDIT-C) was negative (score=0). 1. How often did you have a drink containing alcohol in the past year? Consider a drink to be a 12 ounce can or bottle of regular beer, 8 ounces of malt liquor, a 5 ounce glass of table wine, or a 1.5 ounce shot of liquor (like scotch, gin, or vodka). Never 2. How many drinks containing alcohol did you have on a typical day when you were drinking in the past year? Response not required due to responses to other questions. 3. How often did you have six or more drinks on one occasion in the past year? Response not required due to responses to other questions. /skinny/ [facility] Rn Field Case Manager CASSEROLE PREPARER,PRIMARY CARE Signed: 04/06/2024 09:45 BRETT BEAN [facility]
--- OUTSIDE RECORDS SUMMARY | 2024-05-29 10:33 | XMS_ITS ---
Author Name [facility] [place] Organization [place] Address [address] [place] [address] Care Team Providers Care Coal Mine Inspector Name Role Phone STACEY HORTON Primary Care [...] STAND YON SELF May 29, [phone] [id number] Abdullahi SEVERINO PATIENT MEDICARE (WNR) MEDICARE (M) PART B Jul 18, 2012 PART B [id number] [phone] Abdullahi SEVERINO PATIENT MEDICARE (WNR) MEDICARE (M) PART B Jul 18, 2012 PART B [id number] Abdullahi SEVERINO PATIENT MEDICARE (WNR) MEDICARE (M) PART B Jul 18, 2012 PART B [id number] Abdullahi SEVERINO PATIENT MEDICARE (WNR) MEDICARE (M) PART A Dec 19, 2011 PART A [id number] [phone] Abdullahi SEVERINO PATIENT MEDICARE (WNR) MEDICARE (M) PART A Dec 19, 2011 PART A [id number] Abdullahi SEVERINO PATIENT MEDICARE (WNR) MEDICARE (M) PART A Dec 19, 2011 PART A [id number] Abdullahi SEVERINO PATIENT Selected Encounter This section includes the information on record at [place] for the Encounter. Date/Time Encounter Type Encounter Description Reason Pro vider Source Mar 27, 2024 11:11 AM Outpatient Encounter TELEPHONE PRIMARY CARE IHE Encounter Template Text not used by [place] Plan of Treatment: Future Appointments (+ 6 [...] 20 appointments. The data comes from all [facility]. Appointment Date/Time Appointment Type Appointme nt Facility Name Apr 06, 2024 10:00 AM AMBULATORY - MEDICINE [facility] Apr 23, 2024 10:45 AM [facility] Apr 29, 2024 10:00 AM AMBULATORY MEDICINE [facility] NTR [facility]N [facility] Jun 01, 2024 11:30 AM AMBULAT[facility] - [facility]ICINE [facility] Sep 10, 2024 10:00 AM AMBULATORY NONE [facility] Active, Pending, and Scheduled Orders This section includes a listing of several types of active, pending, and scheduled orders, including clinic medications orders, diagnostic test orders, procedure orders and consult orders; where the start date of the order is 45 days before the date of the Encounter or 45 days after the date of theEncounter. The data comes from all [facility]. Test Date/Time Test Type Test Details Facility Name Mar 05, 2024 12:00 AM Laboratory - Chemistry Order MICROALBUMIN CREATININE RATIO PANEL URINE (RANDOM) SP [facility] [place] [facility] Apr 29, 2024 10:07 AM Consult Order COMMUNITY CARE-MRI Cons Grey Goods Marker's Choice [facility] [place] [facility] Social History: Smoking Status (Most [...] VA-TOBACCO FORMER USER [facility] [place] [facility] Tobacco Use History This section includes a history of the smoking, or tobacco-related health factors, that were collected on or before the date of the Encounter. The data comes from the [place] facility where the Encounter took place. Date/Time Smoking Status/Tobac co Use Comment Facility Apr 05, 2023 11:30 AM VA-TOBACCO QUIT 15 YRS OR MORE [facility] [place] [facility] Dec 28, 2021 09:30 AM VA-TOBACCO FORMER USER [facility] [place] [facility] Dec 28, 2021 09:30 AM VA-TOBACCO QUIT 15 YRS OR MORE [facility] [place] [facility] Dec 02, 2020 09:00 AM VA-TOBACCO FORMER USER [facility] [place] [facility] Dec 02, 2020 09:00 AM VA-TOBACCO QUIT 15 YRS OR MORE [facility] [place] [facility] Aug 18, 2019 03:19 PM VA-TOBACCO FORMER USER [facility] [place] [facility] Aug 18, 2019 03:19 PM VA-TOBACCO QUIT 15 YRS OR MORE [facility] [place] [facility] September 23, 2018 09:58 AM VA-TOBACCO FORMER USER [facility] [place] [facility] September 23, 2018 09:58 AM VA-TOBACCO QUIT 15 YRS OR MORE [facility] [place] [facility] September 30, 2017 09:20 AM QUIT TOBACCO USE > 7 YEARS AGO [facility] [place] [facility] Aug 20, 2016 09:17 AM QUIT TOBACCO USE > 7 YEARS AGO quit 1992 [facility] [place] [facility] Jun 27, 2016 09:45 AM CURRENT SMOKER Quit 25 years ago [facility] Apr 18, 2015 09:06 AM QUIT TOBACCO USE > 7 YEARS AGO quit in 1991 [facility] Mar 21, 2005 10:12 AM HISTORY OF [facility]MO[facility] Mar 21, 2005 10:12 AM QUIT TOBACCO USE > 7 YEARS AGO [facility] Advance Directives: All historical and current [...] DIRECTIVE CESAR LUA [facility] Encounter Notes: All associated encounter notes This section contains the clinical notes associated to the Encounter. Date/Time Encounter Note(s) Provider Source Mar 27, 2024 11:11 AM CARE COORDINATION HOME TELEHEALTH NOTE: LOCAL TITLE: HT NOTE STANDARD TITLE: CARE COORDINATION HOME TELEHEALTH NOTE DATE OF NOTE: MAR 27, 2024@11:11 ENTRY DATE: MAR 27, 2024@11:11:55 AUTHOR: JOSE SANTOS COSIGNER: URGENCY: STATUS: COMPLETED CARL SEVERINO (-[id number]) Vital Sign for: 02/27/2024 - 03/27/2024 (All times are EST; All weights are lbs) Primary DMP: VHA-Wt Mgmt Comorbid(s): DM/HTN Summary Weight Sys BP Krishnamurthy BP HR Glu Pain High 156 96 80 198 Low 113 57 53 71 Average 134 68 68 127 Date Time Wt Time Sys Krishnamurthy HR Time Glu Time Pain 03/27/2024:13 138/96 72 08:00 74 03/24/2024 18:48 139/65 73 18:40 123 03/23/2024 17:21 144/75 71 17:10 118 03/22/2024 11:39 132/75 80 10:32 83 03/21/2024 10:53 116/58 57 10:35 148 03/20/2024 23:13 124/57 78 23:01 75 03/19/2024 19:22 113/60 71 19:14 133 03/18/2024 12:59 127/80 53 12:20 157 03/17/2024 12:29 125/62 56 12:15 127 03/16/2024 19:37 156/68 72 19:20 125 03/15/2024 07:54 124/65 58 07:44 120 03/14/2024 22:30 147/74 74 22:18 133 03/13/2024 22:06 154/69 66 22:04 169 03/12/2024 08:40 132/71 58 08:27 123 03/11/2024 19:35 155/69 74 19:26 71 03/10/2024 04:17 136/59 68 04:10 98 03/09/2024 21:43 143/72 72 21:42 136 03/08/2024 23:42 145/73 75 23:35 123 03/07/2024 20:19 120/59 66 20:00 190 03/06/2024 18:20 127/80 68 18:05 90 03/05/2024 19:05 145/69 75 19:05 143 03/04/2024 - - - 12:49 160 03/03/2024 - 12:45 126/60 79 12:38 189 03/02/2024 - 16:56 118/61 56 16:40 90 03/01/2024 - 06:01 140/62 71 06:00 86 02/29/2024 - 18:12 124/75 62 18:05 198 02/28/2024 - 07:24 128/60 63 07:17 101 02/27/2024 - 17:15 153/57 75 17:02 167 Source: [employer]; [employer] DBP higher than usual today. This manual writer attempted to reach to review readings and assess for any symptoms, changes, questions or concerns. No answer. Left voicemail message requesting repeat BP check and return call for any change in condition. /skinny/ Jose Santos RN [facility]-Home Telehealth Acute Care Physician Signed: 03/27/2024 11:14 JOSE SANTOS [facility]
--- OUTSIDE RECORDS SUMMARY | 2024-05-29 10:33 | XMS_ITS | Encounter Summary ---
Author Name Department [place] Organization [place] Address [address] [place] [address] Care Team Providers Care Senior Consumer Insights Consultant Name Role Phone STACEY HORTON Primary [...] STAND YON SELF May 29, [phone] [id number] [phone] Abdullahi SEVERINO PATIENT MEDICARE (WNR) MEDICARE (M) PART B Jul 18, 2012 PART B [id number] Abdullahi SEVERINO PATIENT MEDICARE (WNR) MEDICARE (M) PART B Jul 18, 2012 PART B [id number] Abdullahi SEVERINO PATIENT MEDICARE (WNR) MEDICARE (M) PART B Jul 18, 2012 PART B [id number] [phone] Abdullahi SEVERINO PATIENT MEDICARE (WNR) MEDICARE (M) PART A Dec 19, 2011 PART A [id number] Abdullahi SEVERINO PATIENT MEDICARE (WNR) MEDICARE (M) PART A Dec 19, 2011 PART A [id number] [phone] Abdullahi SEVERINO PATIENT MEDICARE (WNR) MEDICARE (M) PART A Dec 19, 2011 PART A [id number] Abdullahi SEVERINO PATIENT Selected Encounter This section includes the information on record at [place] for the Encounter. Date/Time Encounter Type Encounter Description Reason Provider Source Mar 18, 2024 09:35 AM Outpatient Encounter HT NON-VIDEO MONITORING ICD-10-CM E11.9 Type 2 diabetes mellitus without complications KRISTIE LORD IHE Encounter Template Text not used by [place] Assessments - Encounter Diagnoses This section includes the primary and secondary diagnoses documented for the Encounter. Date/Time Primary/Secondary Diagnosis Diagnosis Name Provider Source Mar 18, 2024 10:02 AM PRIMARY Type 2 diabetes mellitus without complications KRISTIE LORD [facility] [place] [facility] Plan of Treatment: Future Appointments (+ 6 months) and Future Tests (+/- 45 days) The Plan of Treatment section includes future care activities for the patient from all [place] [facility]. This section includes future appointments [...] - MEDICINE [place] C [facility]L [place] [facility] Apr 23, 2024 10:45 AM AMBULATORY - NONE [place] [facility] [place] [facility] Apr 29, 2024 10:00 AM AMBULATORY - MEDICINE [place] C [facility]L [place] [facility] Jun 01, 2024 11:30 AM AMBULATORY - MEDICINE [place] C [facility] [place] [facility] Sep 10, 2024 10:00 AM AMBULATORY - NONE [place] [facility] [place] [facility] Active, Pending, and Scheduled [...] MICROALBUMIN CREATININE RATIO PANEL URINE (RANDOM) SP [facility] Apr 29, 2024 10:07 AM Consult Order COMMUNITY CARE-MRI Cons Jewish Thought Professor's Choice [facility] Lab Results: +/- 30 days of [...] Range Comment Feb 21, 2024 08:31 AM [facility] HEMOGLOBIN A1C PANEL Specimen Type: BLOOD [...] Dec 05, 2023 10:51 AM Reporting Lab: [address] [address] Performing Lab: [address] [address] HEMOGLOBIN A1C 6.0 H 4.0-5.6 Feb 21, 2024 08:31 AM [facility] MICROALBUMIN CREATININE RATIO PANEL Specimen Type: URINE No comment entered. Ordering Provider: DEISY VELASCO Report Released Date/Time: Dec 05, 2023 10:51 AM Reporting Lab: [address] [address] Performing Lab: [facility] [address] [facility] [address] MICROALBUMIN/C REATININE RATIO 37.8 mg/g H 0-29.9 MICROALBUMIN,Q UANTITATIVE 5.0 mg/dL RR UNAVAIL CREATININE URINE 132.11 mg/dL Feb 21, 2024 08:31 AM [facility] LIPID PANEL FASTING Specimen Type: SERUM No comment entered. Ordering Provider: DEISY VELASCO Report Released Date/Time: Dec 05, 2023 10:51 AM Reporting Lab: [facility] [address] [facility] [address] Performing Lab: [address] [address] CHOLESTEROL 102 mg/dL TRIGLYCERIDE 124 mg/dL 0-150 LDL calculated 44 mg/dL 0-129 CHOL/HDL 3.1 HDL CHOLESTEROL 33 mg/dL L 40-60 Feb 21, 2024 08:31 AM [facility] BASIC METABOLIC PANEL (non-fasting) Specimen Type: SERUM No comment entered. Ordering Provider: DEISY VELASCO Report Released Date/Time: Dec 05, 2023 10:51 AM Reporting Lab: [address] [address] Performing Lab: [address] [address] UREA NITROGEN 15 mg/dL 7-25 GLUCOSE 183 [...] VA-TOBACCO FORMER USER [place] [facility] [place] [facility] Tobacco Use History This section includes a history of the smoking, or tobacco-related health factors, that were collected on or before the date of the Encounter. The data comes from the [place] facility where the Encounter took place. Date/Time Smoking Status/Tobac co Use Comment Facility Apr 05, 2023 11:30 AM VA-TOBACCO QUIT 15 YRS OR MORE [place] [facility] [place] [facility] Dec 28, 2021 09:30 AM VA-TOBACCO FORMER USER [facility] [place] [facility] Dec 28, 2021 09:30 AM VA-TOBACCO QUIT 15 YRS OR MORE [place] [facility] [place] [facility] Dec 02, 2020 09:00 AM VA-TOBACCO FORMER USER [place] [facility] [place] [facility] Dec 02, 2020 09:00 AM VA-TOBACCO QUIT 15 YRS OR MORE [place] [facility] [place] [facility] Aug 18, 2019 03:19 PM VA-TOBACCO FORMER USER [place] [facility] [place] [facility] Aug 18, 2019 03:19 PM VA-TOBACCO QUIT 15 YRS OR MORE [place] [facility] [place] [facility] September 23, 2018 09:58 AM VA-TOBACCO FORMER USER [place] [facility] [place] [facility] September 23, 2018 09:58 AM VA-TOBACCO QUIT 15 YRS OR MORE [place] [facility] [place] [facility] September 30, 2017 09:20 AM QUIT TOBACCO USE > 7 YEARS AGO [place] [facility] [place] [facility] Aug 20, 2016 09:17 AM QUIT TOBACCO USE > 7 YEARS AGO quit 1991 [place] [facility] [place] [facility] Jun 27, 2016 09:45 AM CURRENT SMOKER Quit 25 years ago [place] [facility] [place] [facility] Apr 18, 2015 09:06 AM QUIT TOBACCO USE > 7 YEARS AGO quit in 1991 [place] [facility] [place] [facility] Mar 21, 2005 10:12 AM HISTORY OF SMOKING [facility] [place] [facility] Mar 21, 2005 10:12 AM QUIT TOBACCO USE > 7 YEARS AGO [place] [facility] [place] [facility] Advance Directives: All historical [...] DIRECTIVE CESAR LUA [place] [facility] Encounter Notes: All associated encounter notes This section contains the clinical notes associated to the Encounter. Date/Time Encounter Note(s) Provider Source Mar 18, 2024 10:01 AM CARE COORDINATION HOME TELEHEALTH SUMMARIZATION NOTE: LOCAL TITLE: HT MONTHLY MONITOR NOTE STANDARD TITLE: CARE COORDINATION HOME TELEHEALTH SUMMARIZATION DATE OF NOTE: MAR 18, 2024@10:01 ENTRY DATE: MAR 18, 2024@10:01:55 AUTHOR: TOÑO LORD EXP COSIGNER: URGENCY: STATUS: COMPLETED HT MONTHLY MONITOR NOTE Has ADDENDA The [place] is enrolled in the Home Telehealth (HT) program and continues to be monitored via HT technology. The data sent by the is reviewed and analyzed by the staff, who provide ongoing case management and [place] health education while communicating and collaborating with the health care team as appropriate. This note covers a total of 30 minutes for the month monitored. Month monitored: 2023 Dx: DM/HTN /eusebio LORD RN R[facility]-Home Telehealth Television Tube Inspector Signed: 03/18/2024 10:05 03/18/2024 ADDENDUM STATUS: COMPLETED This note is for Month monitored: FEBRUARY 2024 Original note incorrectly dated for previous month. /skinny/ TOÑO LORD RN [facility]-Home Telehealth Television Tube Inspector Signed: 03/18/2024 10:36 TOÑO LORD [facility] WSN [facility]
--- OUTSIDE RECORDS SUMMARY | 2024-05-29 10:33 | XMS_ITS | Encounter Summary ---
Author Name Department of [place] Organization [place] Address [address] [place] [address] Care Team Providers Care Teacher Aide Clerical Name Role Phone STACEY HORTON Primary [facility] Insurance Providers: All historical and [...] STAND YON SELF May 29, [phone] [id number] Abdullahi SEVERINO PATIENT MEDICARE (WNR) MEDICARE (M) PART B Jul 18, 2012 PART B [id number] Abdullahi SEVERINO PATIENT MEDICARE (WNR) MEDICARE (M) PART B Jul 18, 2012 PART B [id number] [phone] Abdullahi SEVERINO PATIENT MEDICARE (WNR) MEDICARE (M) PART B Jul 18, 2012 PART B [id number] [phone] Abdullahi SEVERINO PATIENT MEDICARE (WNR) MEDICARE (M) PART A Dec 19, 2011 PART A [id number] Abdullahi SEVERINO PATIENT MEDICARE (WNR) MEDICARE (M) PART A Dec 19, 2011 PART A [id number] [phone] Abdullahi SEVERINO PATIENT MEDICARE (WNR) MEDICARE (M) PART A Dec 19, 2011 PART A [id number] Abdullahi SEVERINO PATIENT Selected Encounter This section includes the information on record at [place] for the Encounter. Date/Time Encounter Type Encounter Description Reason Provider Source Mar 27, 2024 04:36 PM Outpatient Encounter TELEPHONE/MEDICI NE ICD-10-CM E11.9 Type 2 diabetes mellitus without complications DEISY VELASCO Afshin Encounter Template Text not used by [place] Assessments - Encounter Diagnoses This section includes the primary and secondary diagnoses documented for the Encounter. Date/Time Primary/Secondary Diagnosis Diagnosis Name Provider Source Mar 27, 2024 04:36 PM PRIMARY Type 2 diabetes mellitus without complications DEISY VELASCO [facility] Plan of Treatment: Future Appointments (+ 6 months) and Future Tests (+/- 45 days) The Plan of Treatment section includes future care activities for the patient from all [place] [facility] This section includes future appointments and [...] 06, 2024 10:00 AM AMBULATORY - MEDICINE [facility] [place] [place] [facility] Apr 23, 2024 10:45 AM AMBULATORY - NONE [place] [facility] [facility] Apr 29, 2024 10:00 AM AMBULATORY - MEDICINE [facility]L [place] [facility] Jun 01, 2024 11:30 AM AMBULATORY - MEDICINE [facility] [place] [facility] Sep 10, 2024 10:00 AM [facility] [place] [facility] Active, Pending, and Scheduled Orders This [...] MICROALBUMIN CREATININE RATIO PANEL URINE (RANDOM) SP [place] [facility]L [place] [facility] Apr 29, 2024 10:07 AM Consult Order COMMUNITY CARE-MRI Cons Gem Stone Cutter's Choice [place] [facility]L [place] [facility] Social History: Smoking Status (Most current) [...] took place. Date/Time Current Smoking Status Comment [facility] Apr 05, 2023 11:30 AM VA-TOBACCO FORMER USER [place] [facility] [place] [facility] Tobacco Use History This section includes a history of the smoking, or tobacco-related health factors, that were collected on or before the date of the Encounter. The data comes from the [place] facility where the Encounter took place. Date/Time Smoking Status/Tobac co Use Comment Facility Apr 05, 2023 11:30 AM VA-TOBACCO QUIT 15 YRS OR MORE ID [facility] [place] [facility] Dec 28, 2021 09:30 AM VA-TOBACCO FORMER USER ID [facility] [place] [facility] Dec 28, 2021 09:30 AM VA-TOBACCO QUIT 15 YRS OR MORE ID [facility] [place] [facility] Dec 02, 2020 09:00 AM VA-TOBACCO FORMER USER ID [facility] [place] [facility] Dec 02, 2020 09:00 AM VA-TOBACCO QUIT 15 YRS OR MORE ID [facility] [place] [facility] Aug 18, 2019 03:19 PM VA-TOBACCO FORMER USER ID [facility] [place] [facility] Aug 18, 2019 03:19 PM VA-TOBACCO QUIT 15 YRS OR MORE ID [facility] [place] [facility] September 23, 2018 09:58 AM VA-TOBACCO FORMER USER ID [facility] [place] [facility] September 23, 2018 09:58 AM VA-TOBACCO QUIT 15 YRS OR MORE [facility] September 30, 2017 09:20 AM QUIT TOBACCO USE > 7 YEARS AGO [facility] Aug 20, 2016 09:17 AM QUIT TOBACCO USE > 7 YEARS AGO quit 1991 [facility] Jun 27, 2016 09:45 AM CURRENT SMOKER Quit 25 years ago [facility] Apr 18, 2015 09:06 AM QUIT TOBACCO USE > 7 YEARS AGO quit in 1991 [facility] Mar 21, 2005 10:12 AM HISTORY OF SMOKING [facility] Mar 21, 2005 10:12 AM QUIT TOBACCO USE > 7 YEARS AGO [facility] Advance Directives: All historical and current [...] Feb 04, 2019 ADVANCE DIRECTIVE CESAR LUA [facility] Encounter Notes: All associated encounter notes This section contains the clinical notes associated to the Encounter. Date/Time Encounter Note(s) Provider Source Mar 27, 2024 04:36 PM PHYSICIAN NOTE: LOCAL TITLE: NOTE STANDARD TITLE: PHYSICIAN NOTE DATE OF NOTE: MAR 27, 2024@16:36 ENTRY DATE: MAR 27, 2024@16:36:34 AUTHOR: DEISY VELASCO COSIGNER: URGENCY: STATUS: COMPLETED NOTE Has ADDENDA DM 2 Pt spoke with [employer] today. They said that it appeared that his reader is defective. He sent this in to the proof coins inspector. Discussed at length the importance of cho consistency in preventing. Taking U500 80/65/80 not taking insulin at hs. His orders from last visit were U500 90/45/50 and 10 units HS. He repeats these correctly, and agrees. 12 min telephone encounter. /skinny/ DEISY VELASCO MD STAFF PHYSICIAN Signed: 03/27/2024 16:47 Receipt Acknowledged By: 03/31/2024 16:22 /skinny/ MAURO VANCE, RN,BSN, [facility], RN 03/27/2024 ADDENDUM STATUS: COMPLETED Reviewed CGM with pt. /eusebio VELASCO MD STAFF PHYSICIAN Signed: 03/27/2024 16:48 03/27/2024 ADDENDUM STATUS: COMPLETED Correction. Pt called [facility] rather than [employer]. /eusebio VELASCO MD STAFF PHYSICIAN Signed: 03/27/2024 16:49 DEISY VELASCO [facility] [place]
--- OUTSIDE RECORDS SUMMARY | 2024-05-29 10:33 | XMS_ITS | Encounter Summary ---
Author Name [facility] Organization [facility] Address [address] [place] [address] Care Team Providers Care Fraternity House Cook Name Role Phone STACEY HORTON Primary Care [...] STAND YON SELF May 29, 2001 [phone] Abdullahi SEVERINO PATIENT MEDICARE (WNR) MEDICARE (M) PART B Jul 18, 2012 PART B [id number] Abdullahi SEVERINO PATIENT MEDICARE (WNR) MEDICARE (M) PART B Jul 18, 2012 PART B [id number] Abdullahi SEVERINO PATIENT MEDICARE (WNR) MEDICARE (M) PART B Jul 18, 2012 PART B [id number] [phone] Abdullahi SEVERINO PATIENT MEDICARE (WNR) MEDICARE (M) PART A Dec 19, 2011 PART A [id number] Abdullahi SEVERINO PATIENT MEDICARE (WNR) MEDICARE (M) PART A Dec 19, 2011 PART A [id number] Abdullahi SEVERINO PATIENT MEDICARE (WNR) MEDICARE (M) PART A Dec 19, 2011 PART A [id number] [phone] Abdullahi SEVEIRNO PATIENT Selected Encounter This section includes the information on record at [place] for the Encounter. Date/Time Encounter Type Encounter Description Reason Provider Source Apr 10, 2024 02:55 PM Outpatient Encounter HT NON-VIDEO MONITORING ICD-10-CM E11.9 Type 2 diabetes mellitus without complications KRISTIE LORD [facility] Encounter Template Text not used by [place] Assessments - Encounter Diagnoses This section includes the primary and secondary diagnoses documented for the Encounter. Date/Time Primary/Secondary Diagnosis Diagnosis Name Provider Source Apr 10, 2024 03:51 PM PRIMARY Type 2 diabetes mellitus without complications RISAKRISTIE BRIDGES [facility] [place] [facility] Apr 10, 2024 03:51 PM SECONDARY Essential (primary) hypertension RISA,BRE [facility] [place] [facility] Plan of Treatment: Future Appointments (+ 6 months) and Future Tests (+/- 45 days) The Plan of Treatment section includes future care activities for the patient from all [place] treatmentfacilities. This section includes future appointments and future orders which are active, pending or scheduled. Future Appointments This section includes appointments that were scheduled to occur 6 months from the date of the Encounter, up to a maximum of 20 appointments. The data comes from all [place] treatment facilities. Appointment Date/Time Appointment Type Appointme nt Facility Name Apr 23, 2024 10:45 AM AMBULATORY - NONE [place] [facility] [place] [facility] Apr 29, 2024 10:00 AM AMBULATORY - [place]ICINE [place] [facility] [place] [facility] Jun 01, 2024 11:30 AM AMBUL[place]ORY - [place]ICINE [place] [facility] [place] [facility] Sep 10, 2024 10:00 AM AMBULATORY - NONE [place] [facility] [place] [facility] Active, Pending, and Scheduled Orders This section includes a listing of several types of active, pending, and scheduled orders, including clinic medications orders, diagnostic test orders, procedure orders and consult orders; where the start date of the order is 45 days before the date of the Encounter or 45 days after the date of theEncounter. The data comes from all [place] treatment facilities. Test Date/Time Test Type Test Details Facility Name Mar 05, 2024 12:00 AM Laboratory - Chemistry Order MICROALBUMIN CREATININE RATIO PANEL URINE (RANDOM) SP [place] [facility] [place] [facility] Apr 29, 2024 10:07 AM Consult Order COMMUNITY CARE-MRI Cons Tool Designer[facility] Social History: Smoking Status (Most current) and Tobacco Use (All prior to encounter date) This section includes the most current, and the historical, smoking and tobacco- related health factors from the [place] facility where the Encounter took place. Current Smoking Status This section includes the most current smoking, or tobacco-related health factor, from the [place] facility where the Encounter took place. Date/Time Current Smoking Status Comment [facility] Apr 06, 2024 10:00 AM VA-TOBACCO FORMER USER [facility] Tobacco Use History This section includes a history of the smoking, or tobacco-related health factors, that were collected on or before the date of the Encounter. The data comes from the [place] facility where the Encounter took place. Date/Time Smoking Status/Tobac co Use Comment Facility Apr 06, 2024 10:00 AM VA-TOBACCO QUIT 15 YRS OR MORE [place] [facility] [place] [facility] Apr 05, 2023 11:30 AM VA-TOBACCO FORMER USER [place] [facility] [place] [facility] Apr 05, 2023 11:30 AM VA-TOBACCO QUIT 15 YRS OR MORE [place] [facility] [place] [facility] Dec 28, 2021 09:30 AM VA-TOBACCO FORMER USER [place] [facility] [place] [facility] Dec 28, 2021 09:30 AM VA-TOBACCO QUIT 15 YRS OR MORE [place] [facility] [place] [facility] Dec 02, 2020 09:00 AM VA-TOBACCO FORMER USER [place] [facility] [place] [facility] Dec 02, 2020 09:00 AM VA-TOBACCO QUIT 15 YRS OR MORE [place] [facility] [place] [facility] Aug 18, 2019 03:19 PM VA-TOBACCO FORMER USER [place] [facility] [place] [facility] Aug 18, 2019 03:19 PM VA-TOBACCO QUIT 15 YRS OR MORE [place] [facility] September 23, 2018 09:58 AM VA-TOBACCO FORMER USER [place] [facility] [place] [facility] September 23, 2018 09:58 AM VA-TOBACCO QUIT 15 YRS OR MORE [facility] September 30, 2017 09:20 AM QUIT TOBACCO USE > 7 YEARS AGO [facility] Aug 20, 2016 09:17 AM QUIT TOBACCO USE > 7 YEARS AGO quit 1991 [facility] Jun 27, 2016 09:45 AM CURRENT SMOKER Quit 25 years ago [facility] Apr 18, 2015 09:06 AM QUIT TOBACCO USE > 7 YEARS AGO quit in 1991 [facility] Mar 21, 2005 10:12 AM HISTORY OF SMOKING [facility] Mar 21, 2005 10:12 AM QUIT TOBACCO USE > 7 YE[facility] AGO [facility] Advance Directives: All historical and current Section Date Range: From patient's date of to the date document was created. This section includes ALL of a patient's completed or amended [place] Advance and Rescinded Directives. The entries below indicate that a directive exists for the patient, but an actual copy is not included with this document. The data comes from all [place] facilities. Date Advance Directives Provider Source Feb 04, 2019 ADVANCE DIRECTIVE CESAR LUA [facility] Encounter Notes: All associated encounter notes This section contains the clinical notes associated to the Encounter. Date/Time Encounter Note(s) Provider Source Apr 10, 2024 03:50 PM CARE COORDINATION HOME TELEHEALTH SUMMARIZATION NOTE: LOCAL TITLE: HT MONTHLY MONITOR NOTE STANDARD TITLE: CARE COORDINATION HOME TELEHEALTH SUMMARIZATION DATE OF NOTE: APR 10, 2024@15:50 ENTRY DATE: APR 10, 2024@15:50:47 AUTHOR: TOÑO LORD EXP COSIGNER: URGENCY: STATUS: COMPLETED HT MONTHLY MONITOR NOTE Has ADDENDA The is enrolled in the Home Telehealth (HT) program and continues to be monitored via HT technology. The data sent by the is reviewed and analyzed by the HT staff, who provide ongoing case management and [place] health education while communicating and collaborating with the health care team as appropriate. This note covers a total of 30 minutes for the month monitored. Month monitored: FEBRUARY 2024 Dx: DM/HTN /skinny/ TOÑO LORD RN RPM-Home Telehealth Lamp Shade Assembler Signed: 04/10/2024 15:53 04/10/2024 ADDENDUM STATUS: COMPLETED Monthly Monitor Note incorrectly dated for February should be MARCH 2024 /eusebio LORD RN RPM-Home Telehealth Lamp Shade Assembler Signed: 04/10/2024 16:13 TOÑO LORD [place] [facility]
--- OUTSIDE RECORDS SUMMARY | 2024-05-29 10:33 | XMS_ITS | Encounter Summary ---
Author Name [facility] [place] [facility] [place] Address [address] [place] [address] Care Team Providers Care Real Time Operator Name Role Phone STACEY HORTON Primary [facility] Insurance Providers: All historical and [...] STAND YON SELF May 29, [phone] [id number] [phone] Abdullahi SEVERINO PATIENT MEDICARE (WNR) MEDICARE (M) PART B Jul 18, 2012 PART B [id number] [phone] Abdullahi SEVERINO PATIENT MEDICARE (WNR) MEDICARE (M) PART B Jul 18, 2012 PART B [id number] Abdullahi SEVERINO PATIENT MEDICARE (WNR) MEDICARE (M) PART B Jul 18, 2012 PART B [id number] Abdullahi SEVERINO PATIENT MEDICARE (WNR) MEDICARE (M) PART A Dec 19, 2011 PART A [id number] Abdullahi SEVERINO PATIENT MEDICARE (WNR) MEDICARE (M) PART A Dec 19, 2011 PART A [id number] [phone] Abdullahi SEVERINO PATIENT MEDICARE (WNR) MEDICARE (M) PART A Dec 19, 2011 PART A [id number] Abdullahi SEVERINO PATIENT Selected Encounter This section includes the information on record at [place] for the Encounter. Date/Time Encounter Type Encounter Description Reason Provider Source Mar 05, 2024 01:30 PM OFFICE O/P EST HI 40 MIN ENDOCRINOLOGY ICD-10-CM E11.9 Type 2 diabetes mellitus without complications VELASCODEISY Afshin Encounter Template Text not used by [place] Assessments - Encounter Diagnoses This section includes the primary and secondary diagnoses documented for the Encounter. Date/Time Primary/Secondary Diagnosis Diagnosis Name Provider Source Mar 05, 2024 02:11 PM PRIMARY Type 2 diabetes mellitus without complications [facility] [place] [facility] Mar 05, 2024 02:11 PM SECONDARY Chronic kidney disease, stage 1 [facility] [place] [facility] Mar 05, 2024 02:11 PM SECONDARY Essential (primary) hypertension [facility] [place] [facility] Mar 05, 2024 02:11 PM SECONDARY Mixed hyperlipidemia [facility] [place] [facility] Mar 05, 2024 02:11 PM SECONDARY Obesity, unspecified [facility] [place] [facility] Mar 05, 2024 02:11 PM SECONDARY Type 2 diabetes mellitus w diabetic chronic kidney disease [facility] [place] [facility] Mar 05, 2024 02:11 PM SECONDARY Type 2 diabetes mellitus with diabetic polyneuropathy [facility] Plan of Treatment: Future Appointments (+ 6 months) and Future Tests (+/- 45 days) The Plan of Treatment section includes future care activities for the patient from all [place] treatmentfacilities. This section includes future appointments and future orders which are active, pending or scheduled. Future Appointments This section includes appointments that were scheduled to occur 6 months from the date of the Encounter, up to a maximum of 20 appointments. The data comes from all [place] treatment [facility]. Appointment Date/Time Appointment Type Appointme nt Facility Name Mar 25, 2024 01:00 PM AMBULATORY - MEDICINE [facility] Apr 06, 2024 10:00 AM [facility] Apr 23, 2024 10:45 AM [facility] Apr 29, 2024 10:00 AM [facility] Jun 01, 2024 11:30 AM AMBULATORY - MEDICINE [facility] Active, Pending, and Scheduled Orders This section includes a listing of several types of active, pending, and scheduled orders, including clinic medications orders, diagnostic test orders, procedure orders and consult orders; where the start date of the order is 45 days before the date of the Encounter or 45 days after the date of theEncounter. The data comes from all [facility]. Test Date/Time Test Type Test Details Facility Name Mar 05, 2024 12:00 AM Laboratory - Chemistry Order MICROALBUMIN CREATININE RATIO PANEL URINE (RANDOM) SP [facility] Lab Results: +/- 30 days of the encounter This section includes the Chemistry and Hematology Lab Results on record with [place] for the patient. Radiology Reports and Pathology Reports are provided separately, in subsequent sections. Lab Results This section contains the Chemistry/Hematology Results that were resulted 30 days before or 30 daysafter the date of the Encounter. Date/Time Source Result Type Result - Unit Interpretation Reference Range Comment Feb 21, 2024 08:31 AM [facility] HEMOGLOBIN A1C PANEL Specimen Type: BLOOD [...] Dec 05, 2023 10:51 AM Reporting Lab: [address] [address] Performing Lab: [facility] [address] [facility] [address] HEMOGLOBIN A1C 6.0 H 4.0-5.6 Feb 21, 2024 08:31 AM [facility] MICROALBUMIN CREATININE RATIO PANEL Specimen Type: URINE No comment entered. Ordering Provider: DEISY VELASCO Report Released Date/Time: Dec 05, 2023 10:51 AM Reporting Lab: [facility] [address] [facility] [address] Performing Lab: [facility] [address] [facility] [address] MICROALBUMIN/C REATININE RATIO 37.8 mg/g H 0-29.9 MICROALBUMIN,Q UANTITATIVE 5.0 mg/dL RR UNAVAIL CREATININE URINE 132.11 mg/dL Feb 21, 2024 08:31 AM [facility] LIPID PANEL FASTING Specimen Type: SERUM No comment entered. Ordering Provider: DEISY VELASCO Report Released Date/Time: Dec 05, 2023 10:51 AM Reporting Lab: [facility] [address] [facility] [address] Performing Lab: [address] [address] CHOLESTEROL 102 mg/dL TRIGLYCERIDE 124 mg/dL 0-150 LDL calculated 44 mg/dL 0-129 CHOL/HDL 3.1 HDL CHOLESTEROL 33 mg/dL L 40-60 Feb 21, 2024 08:31 AM [facility] BASIC METABOLIC PANEL (non-fasting) Specimen Type: SERUM No comment entered. Ordering Provider: DEISY VELASCO Report Released Date/Time: Dec 05, 2023 10:51 AM Reporting Lab: [facility] [address] [facility] [address] Performing Lab: [address] [address] UREA NITROGEN 15 mg/dL 7-25 GLUCOSE 183 [...] 71 148/65 16 98 4 229 32 [place] [facility] [place] [facility] Social History: Smoking Status (Most current) and Tobacco Use (All prior to encounter date) This section includes the most current, and the historical, smoking and tobacco- related health factors from the [place] facility where the Encounter took place. Current Smoking Status This section includes the most current smoking, or tobacco-related health factor, from the [place] facility where the Encounter took place. Date/Time Current Smoking Status Comment [facility] Apr 05, 2023 11:30 AM VA-TOBACCO FORMER USER [place] [facility] Tobacco Use History This section includes a history of the smoking, or tobacco-related health factors, that were collected on or before the date of the Encounter. The data comes from the [place] facility where the Encounter took place. Date/Time Smoking Status/Tobac co Use Comment Facility Apr 05, 2023 11:30 AM VA-TOBACCO QUIT 15 YRS OR MORE [place] [facility] [facility] Dec 28, 2021 09:30 AM VA-TOBACCO FORMER USER [place] [facility] [facility] Dec 28, 2021 09:30 AM VA-TOBACCO QUIT 15 YRS OR MORE [place] [facility] [facility] Dec 02, 2020 09:00 AM VA-TOBACCO FORMER USER [place] [facility] [place] [facility] Dec 02, 2020 09:00 AM VA-TOBACCO QUIT 15 YRS OR MORE [place] [facility] [place] [facility] Aug 18, 2019 03:19 PM VA-TOBACCO FORMER USER [place] [facility] [place] [facility] Aug 18, 2019 03:19 PM VA-TOBACCO QUIT 15 YRS OR MORE [place] [facility] [facility] September 23, 2018 09:58 AM VA-TOBACCO FORMER USER [place] [facility] [place] [facility] September 23, 2018 09:58 AM VA-TOBACCO QUIT 15 YRS OR MORE [facility] September 30, 2017 09:20 AM QUIT TOBACCO USE > 7 YEARS AGO [facility] Aug 20, 2016 09:17 AM QUIT TOBACCO USE > 7 YEARS AGO quit 1991 [facility] Jun 27, 2016 09:45 AM CURRENT SMOKER Quit 25 years ago [facility] Apr 18, 2015 09:06 AM QUIT TOBACCO USE > 7 YEARS AGO quit in 1991 [facility] Mar 21, 2005 10:12 AM HISTORY OF SMOKING [facility] Mar 21, 2005 10:12 AM QUIT TOBACCO USE > 7 YEARS AGO [facility] Advance Directives: All historical and current Section Date Range: From patient's date of to the date document was created. This section includes ALL of a patient's completed or amended [place] Advance and Rescinded Directives. The entries below indicate that a directive exists for the patient, but an actual copy is not included with this document. The data comes from all [place] facilities. Date Advance Directives Provider Source Feb 04, 2019 ADVANCE DIRECTIVE [facility] Encounter Notes: All associated encounter notes This section contains the clinical notes associated to the Encounter. Date/Time Encounter Note(s) Provider Source Mar 05, 2024 07:20 AM PHYSICIAN NOTE: LOCAL TITLE: NOTE STANDARD TITLE: PHYSICIAN NOTE DATE OF NOTE: MAR 05, 2024@07:20 ENTRY DATE: MAR 05, 2024@07:20:43 AUTHOR: DEISY VELASCOIGNER: URGENCY: STATUS: COMPLETED ========= CC: Diabetes mellitus type 2 with chronic kidney disease Stage 1 and peripheral neuropathy, HTN, Hyperlipidemia, Obesity HPI: Two weeks ago, evening U500 dose decreased from 80 to 65 units, due to o/n low bg. Has appts with DM education and nutrition within past two mos. Bfast is 7AM, lunch is 11:30 AM unless he has PT, in which case it is 3 PM, and dinner 7PM. He has been taking lunch U500 at 11:30 but not eating on PT days. All endocrine labs were reviewed with the patient. Barriers/s supports for care: Grandson lives with him. They are expecting grandson to be able to start in a program in June. Medications for diabetes: Semaglutide 1 mg weekly metformin INSULIN CONC REG HUM 500 UNT/ML KWIKPEN INJECT DIRECTED ACTIVE SUBCUTANEOUSLY THREE TIMES A DAY 80 UNITS MORNING, 60 UNITS NOON, AND 65 UNITS EVENING BG readings: CGM Date Time Wt Time Sys Krishnamurthy HR Time Glu Time Pain 02/26/2024 - 13:48 124/68 67 13:36 101 02/25/2024 - [...] 02/16/2024 - 12:29 134/75 59 12:10 178 Hgba1c? HEMOGLOBIN A1C TREND 02/21/2024 08:31 BLOOD 6.0 H 12/05/2023 10:58 BLOOD 6.0 H 08/16/2023 07:56 BLOOD 7.3 H 04/25/2023 08:45 BLOOD 6.7 H 01/22/2023 09:03 BLOOD 8.0 H Weight trend: 228 lbs BMI 31.87 35 lb weight loss in past two years, remote peak 270 lbs. Food insecurity No Pattern of eating throughout the day: three meals Physical activity: PT, walking most days. Carbohydrate counting: feels well informec, but not consistent. Episodes of hypoglycemia: yes Hypoglycemia unawareness: present Neuropathy pain: no pain Last eye evaluation: No 06/04/2023 no appt, Has appt non [facility] Last nephropathy screen MICROALBUMIN Feb 21, 2024@08:31 URINE mALB/Cr: 37.8 H mg/G 0 - 29.9 FindingsCREATININE-EGFR 02/21/24 08:31 0.80 12/05/23 10:58 0.92 08/16/23 07:56 1.06 Statin therapy:Feb 21 2024 CHOL 102 mg/dL <7 - 199 TRIG 124 mg/dL 0 - 150 HDL 33 L mg/dL 40 - 60 LDL 44 mg/dL 0 - 55 CAD: present On asa: he discontinued emergency kit/glucose tabs: has glucagon kit nearing expiration, Grandson knows how to use. Active problems - Computerized Problem List is the source for the followin. Exposure to potentially hazardous substance (SCT [id number]) 2. Knee pain 3. Diabetes mellitus type 2 4. 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 Cancer screening follow up 6. Anxiety 7. Eating disorder 8. Obstructive sleep apnea syndrome 9. Arteriosclerotic heart disease 10. Obesity (SNOMED CT 108888416) 11. Hyperlipidemia (SNOMED CT 21831676) 12. Benign essential hypertension (SNOMED CT 5194711) 13. Venous Insufficiency Active Outpatient Medications (including Supplies): ACCU-CHEK GUIDE (GLUCOSE) TEST STRIP USE 1 STRIP TO TEST ACTIVE BLOOD SUGARS THREE TIMES A DAY FOR SENSOR FAILURE ATORVASTATIN CALCIUM 80MG TAB TAKE ONE TABLET BY MOUTH ACTIVE ONCE DAILY FOR CHOLESTEROL FENOFIBRATE 145MG TAB TAKE ONE TABLET BY MOUTH ONCE DAILY ACTIVE FOR HIGH CHOLESTEROL FISH OIL 1000MG (500MG DHA/EPA) CAP TAKE TWO CAPSULES BY HOLD MOUTH TWICE DAILY GLUCOSE SENSOR FREESTYLE VARUN 3 USE 1 SENSOR DIRECTED ACTIVE EVERY 14 DAYS HYDROCHLOROTHIAZIDE 25MG TAB TAKE ONE TABLET BY MOUTH ONCE ACTIVE (S) DAILY FOR HIGH BLOOD PRESSURE INSULIN CONC REG HUM 500 UNT/ML KWIKPEN INJECT DIRECTED ACTIVE SUBCUTANEOUSLY THREE TIMES A DAY 80 UNITS MORNING, 60 UNITS NOON, AND 65 UNITS EVENING METFORMIN HCL 500MG TAB TAKE ONE TABLET BY MOUTH TWICE ACTIVE DAILY FOR DIABETES METOPROLOL SUCCINATE 25MG SA TAB TAKE ONE TABLET BY MOUTH ACTIVE ONCE DAILY FOR HIGH BLOOD PRESSURE SEMAGLUTIDE 1MG/0.75ML INJ PEN 3ML INJECT 1MG ACTIVE SUBCUTANEOUSLY ONCE A WEEK SPIRONOLACTONE 25MG TAB TAKE ONE TABLET BY MOUTH ONCE ACTIVE DAILY VALSARTAN 320MG TAB TAKE ONE TABLET BY MOUTH ONCE DAILY ACTIVE FOR HIGH BLOOD PRESSURE Non-VA AMLODIPINE BESYLATE 5MG TAB 5MG BY MOUTH ONCE DAILY ACTIVE Non-VA ASPIRIN 81MG EC TAB 81MG BY MOUTH ONCE DAILY ACTIVE states not taking. Will restart until able to talk with cardiology Fish oil empagliflozin, , renewed glucagon renewed SHX: As above ROS: No cough or fever PE: affect pleasant appropriate speaking easily in full sentences Feet pulses barely palpable sensory to monofilament marked decrease lesions no Medical Decision Making: Diabetes mellitus type 2 with chronic kidney disease Stage 1 and peripheral neuropathy: Suggest increase semaglutide to 2 mg, and he agrees Call if nausea or other GI sx U500 90/45/50, and 10 units hs Take 45 gm CHO every day at 11:30 with insulin, and do not then have carb in lunch in the afternoon on PT days (PT is nearly done Carbohydrate targets 45 gm TID Blood sugar targets 130 premeal, 150-180 after Hemoglobin A1c Targets 7.5 Obesity Doing well Hypertension increase amlodipine to 10 mg, Discussed benefits and harms Hyperlipidemia well controlled Team follow up none at this time lab BMP Hgba1c next visit Insulin orders updated in cprs F/u three mos FTF Suicide Screen: C-SSRS Screening [place]-Suicide Severity Rating Scale (C-SSRS Screener) 1. Over the past month, have you wished you were or wished you could go to sleep and not wake up? No 2. Over the past month, have you had any actual thoughts of killing yourself? No 3. Over the past month, have you been thinking about how you might do this? Response not required due to responses to other questions. 4. Over the past month, have you had these thoughts and had some intention of acting on them? Response not required due to responses to other questions. 5. Over the past month, have you started to work out or worked out the details of how to kill yourself? Response not required due to responses to other questions. 6. If yes, at any time in the past month did you intend to carry out this plan? Response not required due to responses to other questions. 7. In your lifetime, have you ever done anything, started to do anything, or prepared to do anything to end your life (for example, collected pills, obtained a gun, gave away valuables, went to the roof but didn't jump)? No 8. If YES, was this within the past 3 months? Response not required due to responses to other questions. Medication Reconciliation: Outpatient: Has the patient been taking medications as documented in the EMLR? No: Discrepencies were identified. See below. Essential Medication List for Review used to complete this medication reconciliation. INCLUDED IN THIS LIST: Alphabetical list of active outpatient prescriptions dispensed from this [place] (local) and dispensed from another [place] or [facility] facility (remote) as well as inpatient orders [...] (Tool #5) FACILITY ALLERGY/ADR -------- KATRINA GONZÁLES [facility] NO KNOWN ALLERGIES [facility] [place] [facility] DEMEROL 100MG/ML CARTRIDGE Med Recon NoGlossary (Tool #1) INCLUDED IN THIS LIST: Alphabetical list of active outpatient prescriptions dispensed from this [place] (local) and dispensed from another [place] or [facility] facility (remote) as well as inpatient orders (local pending and active), local clinic medications, locally documented non-VA medications, and local prescriptions that have or been discontinued in the past 90 days. Non-VA Meds Last Documented On: Jan 11, 2023 NOTE The display of VA prescriptions dispensed from another [place] or [facility] facility (remote) is limited to active outpatient prescription entries matched to National Drug File at the originating site and may not include some items such as investigational drugs, compounds, etc. NOT INCLUDED IN THIS LIST: Medications self-entered by the patient into personal health records (i.e. [employer]) are NOT included in this list. Non-VA medications documented outside this [place], remote inpatient orders (regardless of status) and remote clinic medications are NOT included in this list. The patient and provider must always discuss medications the patient is taking, regardless of where the medication was dispensed or obtained. OUTPT AMLODIPINE BESYLATE 10MG TAB (Status = Pending) TAKE ONE TABLET BY MOUTH ONCE DAILY FOR BLOOD PRESSURE/HEART, DO NOT TAKE WITH [employer] Login Date: 03/05/24 Qty/Days Supply: Refills Ordered: 3 Non-VA AMLODIPINE BESYLATE 5MG TAB TAKE ONE TABLET BY MOUTH ONCE DAILY Indication: FOR HIGH BLOOD PRESSURE Non-VA ASPIRIN 81MG EC TAB TAKE ONE TABLET BY MOUTH ONCE DAILY OUTPT ATORVASTATIN CALCIUM 80MG TAB (Status = Active) TAKE ONE TABLET BY MOUTH ONCE DAILY FOR CHOLESTEROL Rx# [id number] Last Released: 12/06/23 Qty/Days Supply: Rx Expiration Date: 12/05/24 Refills Remainin Indication: FOR HIGH CHOLESTEROL OUTPT ATORVASTATIN CALCIUM 80MG TAB (Status = Pending) TAKE ONE TABLET BY MOUTH ONCE DAILY FOR CHOLESTEROL Renewed from Rx# [id number] Qty/Days Supply: Login Date: 03/05/24 Refills Ordered: 3 OUTPT EMPAGLIFLOZIN 25MG TAB (Status = ) TAKE ONE TABLET BY MOUTH ONCE DAILY FOR DIABETES Rx# [id number] Last Released: 02/11/23 Qty/Days Supply: Rx Expiration Date: 02/07/24 Refills Remainin OUTPT EMPAGLIFLOZIN 25MG TAB (Status = Pending) TAKE ONE TABLET BY MOUTH ONCE DAILY FOR DIABETES Renewed from Rx# [id number] Qty/Days Supply: Login Date: 03/05/24 Refills Ordered: 3 OUTPT FENOFIBRATE 145MG TAB (Status = Active) TAKE ONE TABLET BY MOUTH ONCE DAILY FOR HIGH CHOLESTEROL Rx# [id number] Last Released: 02/10/24 Qty/ Supply: Rx Expiration Date: 04/30/24 Refills Remainin Indication: FOR HIGH CHOLESTEROL OUTPT FISH OIL 1000MG (500MG DHA/EPA) CAP (Status = On Hold) TAKE TWO CAPSULES BY MOUTH TWICE DAILY Rx# [id number] Last Released: Supply: Rx Expiration Date: 04/30/24 Refills Remainin Indication: TO REDUCE TRIGLYCERIDES OUTPT GLUCAGON 1MG/CESAR INJ EMERGENCY KIT (Status = Pending) INJECT 1 INJECTION INTRAMUSCULARLY ONE TIME NEEDED Login Date: 03/05/24 QtDays Supply: 06/18 Refills Ordered: 0 OUTPT HYDROCHLOROTHIAZIDE 25MG TAB (Status = Active) TAKE ONE TABLET BY MOUTH ONCE DAILY FOR HIGH BLOOD PRESSURE Rx# [id number] Last Released: 03/04/24 Qty/Days Supply: Rx Expiration Date: 12/05/24 Refills Remainin Indication: FOR HIGH BLOOD PRESSURE OUTPT INSULIN CONC REG HUM 500 UNT/ML KWIKPEN (Status = Discontinued) INJECT DIRECTED SUBCUTANEOUSLY THREE TIMES A DAY 90 UNITS BREAKFAST, 75 UNITS LUNCH, AND 75 UNITS DINNER. Rx# [id number] Last Released: 09/05/23 Qty/Days Supply: Rx Expiration Date: 09/04/24 Refills Remainin Indication: FOR DIABETES MELLITUS OUTPT INSULIN CONC REG HUM 500 UNT/ML KWIKPEN (Status = Discontinued) INJECT DIRECTED 500UNIT/ML SUBCUTANEOUSLY THREE TIMES A DAY FOR DIABETES MELLITUS 80 UNITS BREAKFAST, 80 UNITS LUNCH, 70 UNITS DINNER Rx# [id number] Last Released: 01/01/24 Qty/Days Supply: Rx Expiration Date: 12/25/24 Refills Remainin Indication: FOR DIABETES MELLITUS OUTPT INSULIN CONC REG HUM 500 UNT/ML KWIKPEN (Status = Discontinued) INJECT DIRECTED SUBCUTANEOUSLY THREE TIMES A DAY 80 UNITS MORNING, 60 UNITS NOON, AND 65 UNITS EVENING Rx# [id number] Last Released: 02/24/24 Qty/Days Supply: Rx Expiration Date: 02/21/25 Refills Remainin Indication: FOR DIABETES MELLITUS OUTPT INSULIN CONC REG HUM 500 UNT/ML KWIKPEN (Status = Pending) INJECT DIRECTED 500UNIT/ML SUBCUTANEOUSLY THREE TIMES A DAY 80 units AM, 50 units 11:30 am, 50 units evening meal, 10 units HS Please hold until requested Login Date: 03/05/24 Qty/Days Supply: Refills Ordered: 1 OUTPT METFORMIN HCL 500MG TAB (Status = Active) TAKE ONE TABLET BY MOUTH TWICE DAILY FOR DIABETES Rx# [id number] Last Released: 12/06/23 Qty/Days Supply: Rx Expiration Date: 12/05/24 Refills Remainin OUTPT METFORMIN HCL 500MG TAB (Status = Pending) TAKE ONE TABLET BY MOUTH TWICE DAILY FOR DIABETES Renewed from Rx# [id number] Qt/Days Supply: Login Date: 03/05/24 Refills Ordered: 1 OUTPT METOPROLOL SUCCINATE 25MG SA TAB (Status = Active) TAKE ONE TABLET BY MOUTH ONCE DAILY FOR HIGH BLOOD PRESSURE Rx# [id number] Last Released: 02/17/24 Qty/Days Supply: Rx Expiration Date: 12/05/24 Refills Remainin Indication: FOR HIGH BLOOD PRESSURE OUTPT SEMAGLUTIDE 1MG/0.75ML INJ PEN 3ML (Status = Discontinued) INJECT 1MG SUBCUTANEOUSLY ONCE A WEEK Rx# [id number] Last Released: 12/09/23 Qty/Days Supply: 06/16 Rx Expiration Date: 12/05/24 Refills Remainin Indication: FOR TYPE 2 DIABETES MELLITUS OUTPT SEMAGLUTIDE 2MG/0.75ML INJ PEN 3ML (Status = Pending) INJECT 2MG SUBCUTANEOUSLY ONCE A WEEK Login Date: 03/05/24 Qty/Days Supply: 09/14 Refills Ordered: 5 OUTPT SPIRONOLACTONE 25MG TAB (Status = Active) TAKE ONE TABLET BY MOUTH ONCE DAILY Rx# [id number] Last Released: 12/06/23 Qty/Days Supply: 90 Rx Expiration Date: 12/05/24 Refills Remainin Indication: FOR HIGH BLOOD PRESSURE OUTPT VALSARTAN 320MG TAB (Status = Active) TAKE ONE TABLET BY MOUTH ONCE DAILY FOR HIGH BLOOD PRESSURE Rx# [id number] Last Released: 02/08/24 Qty/Days Supply: Rx Expiration Date: 02/07/25 Refills Remainin Indication: FOR HIGH BLOOD PRESSURE SUPPLIES OUTPT ACCU-CHEK GUIDE (GLUCOSE) TEST STRIP (Status = Active) USE 1 STRIP TO TEST BLOOD SUGARS THREE TIMES A DAY FOR SENSOR FAILURE Rx# [id number] Last Released: 06/25/23 Qty/Days Supply: 300/90 Rx Expiration Date: 05/29/24 Refills Remainin OUTPT GLUCOSE SENSOR FREESTYLE VARUN 3 (Status = Discontinued) USE 1 SENSOR DIRECTED EVERY 14 DAYS Rx# [id number] Last Released: 11/26/23 Qty/Days Supply: 07/17 Rx Expiration Date: 11/21/24 Refills Remainin Indication: TYPE 2 DIABETES OUTPT GLUCOSE SENSOR FREESTYLE VARUN 3 (Status = Active) USE 1 SENSOR DIRECTED EVERY 14 DAYS Rx# [id number] Last Released: 02/26/24 Qty/Days Supply: 07/17 Rx Expiration Date: 02/21/25 Refills Remainin Indication: TYPE 2 DIABETES HTN Assess for Elevated BP>=140/90: The patient's medication regimen was adjusted to improve blood pressure control. Eye Care At-Risk Screen : Patient identified to be at risk for the following eye condition(s): DIABETIC RETINOPATHY: Diabetes Diagnosis Information: Encounter Diagnosis: 02/27/2024@15:14:37 E11.9 (ICD-10-CM) Type 2 Diabetes Mellitus without Complications rank: SECONDARY Prov. Narr. - Diabetes mellitus type [address] [id number]) MACULAR DEGENERATION: Macular Degeneration Risk Factors Information: Reminder Term: VA-AMD RISK FACTORS Encounter Diagnosis: 05/02/2022@10:00 Z68.33 (ICD-10-CM) Body mass index [BMI] 33.0-33.9, adult rank: PRIMARY Prov. Narr. - BMI 33.0-33.9 Action: Patient has a future eye care appointment scheduled within the next 90 days. Date of Appointment: May Foot Check: A complete foot check was completed at this encounter. VISUAL INSPECTION: Includes inspection for skin breaks, deformity, erythema, trauma, pallor on elevation, dependent rubor, nail deformities, extensive callus and pitting edema. Visual exam results: Normal PEDAL PULSES: Includes palpation of dorsalis and posterior tibial pulses and signs/symptoms of vascular compromise like pain, pallor, parasthesia or paralysis. Present (even if diminished) Comment: barely palpable SENSORY CHECK: Includes 10 gram Monofilament ([place]) test of sensation. Intact (Greater than or equal to 80% of sites checked) Abnormal (Less than 80% of sites checked): Abnormal (decreased or absent sensation to monofilament): HIGH-RISK: HIGH RISK INFORMATION PROVIDED: 1. Advised patient that extra depth footwear with soft molded inserts and braces may be required. 2. Advised patient not to walk barefoot. 3. Explained the importance of daily foot checks. 4. Stressed the importance of daily foot hygiene, including bathing, complete drying and thorough inspection for changes. The patient verbalized understanding and was offered a detailed handout on diabetic foot care. Patient being seen by an outside chargeback specialist /skinny/ DEISY VELASCO MD STAFF PHYSICIAN Signed: 03/05/2024 14:11 DEISY VELASCO [facility] [place]
--- OUTSIDE RECORDS SUMMARY | 2024-05-29 10:33 | XMS_ITS | Encounter Summary ---
Author Name [facility] [place] Organization [facility] [place] [facility] [place] Address [address] [place] [address] Care Team Providers Care Dishroom Attendant Name Role Phone STACEY HORTON Primary [...] STAND YON SELF May 29, [phone] [id number] Abdullahi SEVERINO PATIENT MEDICARE (WNR) MEDICARE (M) PART B Jul 18, 2012 PART B [id number] Abdullahi SEVERINO PATIENT MEDICARE (WNR) MEDICARE (M) PART B Jul 18, 2012 PART B [id number] Abdullahi SEVERINO PATIENT MEDICARE (WNR) MEDICARE (M) PART B Jul 18, 2012 PART B [id number] Abdullahi SEVERINO PATIENT MEDICARE (WNR) MEDICARE (M) PART A Dec 19, 2011 PART A [id number] [phone] Abdullahi SEVERINO PATIENT MEDICARE (WNR) MEDICARE (M) PART A Dec 19, 2011 PART A [id number] Abdullahi SEVERINO PATIENT MEDICARE (WNR) MEDICARE (M) PART A Dec 19, 2011 PART A [id number] [phone] Abdullahi SEVERINO PATIENT Selected Encounter This section includes the information on record at [place] for the Encounter. Date/Time Encounter Type Encounter Description Reason Provider Source Apr 15, 2024 10:55 AM HC PRO PHONE CALL 5-10 MIN TELEPHONE/MEDICIN E ICD-10-CM E11.9 Type 2 diabetes mellitus without complications EZEKIEL SANTOS [facility] Encounter Template Text not used by [place] Assessments - Encounter Diagnoses This section includes the primary and secondary diagnoses documented for the Encounter. Date/Time Primary/Secondary Diagnosis Diagnosis Name Provider Source Apr 15, 2024 10:55 AM PRIMARY Type 2 diabetes mellitus without complications [facility]EL S[facility] Plan of Treatment: Future Appointments (+ 6 months) and Future Tests (+/- 45 days) The Plan of Treatment section includes future care activities for the patient [facility] [place] [facility] This section includes future appointments and [...] 23, 2024 10:45 AM AMBULATORY - NONE [place] [facility] [place] [facility] Apr 29, 2024 10:00 AM AMBULATORY - MEDICINE [facility] Jun 01, 2024 11:30 AM AMBULATORY - MEDICINE [place] C [facility] [place] [facility] Sep 10, 2024 10:00 AM [facility] Active, Pending, and Scheduled Orders This section includes a listing of several types of active, pending, and scheduled orders, including clinic medications orders, diagnostic test orders, procedure orders and consult orders; where the start date of the order is 45 days before the date of the Encounter or 45 days after the date of theEncounter. The data comes from all [place] treatment facilities. Test Date/Time Test Type Test Details Facility Name Mar 05, 2024 12:00 AM Laboratory - Chemistry Order MICROALBUMIN CREATININE RATIO PANEL URINE (RANDOM) SP [place] [facility] [facility] Apr 29, 2024 10:07 AM Consult Order COMMUNITY CARE-MRI Cons Railroad Passenger Agent's Choice [place] [facility] [place] [facility] Social History: Smoking Status (Most current) [...] took place. Date/Time Current Smoking Status Comment [facility] Apr 06, 2024 10:00 AM VA-TOBACCO FORMER USER [place] [facility] [facility] Tobacco Use History This section includes a history of the smoking, or tobacco-related health factors, that were collected on or before the date of the Encounter. The data comes from the [place] facility where the Encounter took place. Date/Time Smoking Status/Tobac co Use Comment Facility Apr 06, 2024 10:00 AM VA-TOBACCO QUIT 15 YRS OR MORE [place] [facility] [facility] Apr 05, 2023 11:30 AM VA-TOBACCO FORMER USER [place] [facility] [place] [facility] Apr 05, 2023 11:30 AM VA-TOBACCO QUIT 15 YRS OR MORE [place] [facility] [place] [facility] Dec 28, 2021 09:30 AM VA-TOBACCO FORMER USER [place] [facility] [place] [facility] Dec 28, 2021 09:30 AM VA-TOBACCO QUIT 15 YRS OR MORE [place] [facility] [place] [facility] Dec 02, 2020 09:00 AM VA-TOBACCO FORMER USER [place] [facility] [place] [facility] Dec 02, 2020 09:00 AM VA-TOBACCO QUIT 15 YRS OR MORE [place] [facility] [place] [facility] Aug 18, 2019 03:19 PM VA-TOBACCO FORMER USER [place] [facility] [place] [facility] Aug 18, 2019 03:19 PM VA-TOBACCO QUIT 15 YRS OR MORE [facility] September 23, 2018 09:58 AM VA-TOBACCO FORMER USER [facility] September 23, 2018 09:58 AM VA-TOBACCO QUIT 15 YRS OR MORE [facility] September 30, 2017 09:20 AM QUIT TOBACCO USE > 7 YEARS AGO [facility] Aug 20, 2016 09:17 AM QUIT TOBACCO USE > 7 YEARS AGO quit 1991 [facility] Jun 27, 2016 09:45 AM CURRENT SMOKER Quit 25 years ago [facility] Apr 18, 2015 09:06 AM QUIT TOBACCO USE > 7 YEARS AGO quit in 1991 [facility] Mar 21, 2005 10:12 AM HISTORY OF SMOKING [facility] Mar 21, 2005 10:12 AM QUIT TOBACCO USE > 7 YEARS AGO [facility] Advance Directives: All historical and current [...] Source Feb 04, 2019 ADVANCE DIRECTIVE [facility] Encounter Notes: All associated encounter notes This section contains the clinical notes associated to the Encounter. Date/Time Encounter Note(s) Provider Source Apr 15, 2024 10:56 AM CARE COORDINATION HOME TELEHEALTH FOLLOW-UP NOTE: LOCAL TITLE: HT INTERVENTION NOTE STANDARD TITLE: CARE COORDINATION HOME TELEHEALTH FOLLOW-UP NOTE DATE OF NOTE: APR 15, 2024@10:56 ENTRY DATE: APR 15, 2024@10:56:46 AUTHOR: JOSE SANTOS COSIGNER: URGENCY: STATUS: COMPLETED HT INTERVENTION NOTE Has ADDENDA [place] is actively enrolled in the Home Telehealth program. Review of data shows the following out of range responses: CARL SEVERINO (-[id number]) Glucose Data for: 03/17/2024 - 04/15/2024 (All Times are EST) Primary DMP: VHA-Wt Mgmt Comorbid(s): DM/HTN Early AM Morning Midday Evening Night Summary 00:00-06:00 06:00-11:00 11:00-16:00 16:00-21:00 21:00-00:00 High 145 148 157 170 158 Low 118 74 100 70 75 Average 132 115 128 125 122 Average All Readings: 124 Early AM Morning Midday Evening Night Date 00:00-06:00 06:00-11:00 11:00-16:00 16:00-21:00 21:00-00:00 04/14 135 (20:34) 70 (17:10) 04/13 118 (01:27) 04/12 134 (07:52) 04/11 170 (19:50) 04/10 100 (16:30) 04/09 145 (04:27) 04/08 95 (19:30) 04/07 141 (19:42) 04/05 137 (07:43) 04/04 144 (11:48) 04/03 111 (11:05) 136 (16:15) 04/02 158 (22:18) 04/01 128 (19:06) 03/31 100 (11:12) 03/30 133 (22:19) 03/29 150 (17:40) 03/28 132 (20:39) 125 (16:40) 03/27 74 (08:00) 03/24 123 (18:40) 03/23 118 (17:10) 03/22 83 (10:32) 03/21 148 (10:35) 03/20 75 (23:01) 03/19 133 (19:14) 03/18 157 (12:20) 03/17 127 (12:15) Vital Sign for: 03/17/2024 - 04/15/2024 ========= Summary Sys BP Krishnamurthy BP HR Glu ========= High 157 99 98 170 Low 112 57 53 70 Average 131 71 68 124 ========= Date Time Sys Krishnamurthy HR Time Glu 04/14/2024 20:45 125/70 59 20:34 135 04/14/2024 17:28 133/61 62 17:10 70 04/13/2024 01:42 131/69 54 01:27 118 04/12/2024 08:11 141/69 65 07:52 134 04/11/2024 19:57 128/98 98 19:50 170 04/10/2024 16:45 120/99 55 16:30 100 04/09/2024 04:40 112/74 61 04:27 145 04/08/2024 19:37 113/63 59 19:30 95 04/07/2024 19:53 125/68 64 19:42 141 04/05/2024 07:53 143/69 84 07:43 137 04/04/2024 11:58 138/74 62 11:48 144 04/03/2024 16:25 157/69 61 16:15 136 04/03/2024 11:15 149/70 62 11:05 111 04/02/2024 22:25 116/61 62 22:18 158 04/01/2024 19:07 132/70 65 19:06 128 03/31/2024 12:13 132/62 69 11:12 100 03/30/2024 22:34 113/60 74 22:19 133 03/29/2024 17:51 124/64 72 17:40 150 03/28/2024 20:47 155/74 82 20:39 132 03/28/2024 16:59 152/77 78 16:40 125 03/27/2024 18:21 133/66 69 - 03/27/2024 08:13 138/96 72 08:00 74 03/24/2024 18:48 139/65 73 18:40 123 03/23/2024 17:21 144/75 71 17:10 118 03/22/2024 11:39 132/75 80 10:32 83 03/21/2024 10:53 116/58 57 10:35 148 03/20/2024 23:13 124/57 78 23:01 75 03/19/2024 19:22 113/60 71 19:14 133 03/18/2024 12:59 127/80 53 12:20 157 03/17/2024 12:29 125/62 56 12:15 127 Source: [employer]; [employer] Assessment: Hypoglycemia 70 noted yesterday recovered to 135. Current DM medications include: EMPAGLIFLOZIN 25MG TAB TAKE ONE TABLET BY MOUTH ONCE DAILY ACTIVE FOR DIABETES INSULIN CONC REG HUM 500 UNT/ML KWIKPEN INJECT DIRECTED ACTIVE SUBCUTANEOUSLY FOUR TIMES A DAY FOR DIABETES MELLITUS 80 UNITS AM, 50 UNITS 11:30 AM, 50 UNITS EVENING MEAL, 10 UNITS AT BEDTIME METFORMIN HCL 500MG TAB TAKE ONE TABLET BY MOUTH TWICE ACTIVE DAILY FOR DIABETES SEMAGLUTIDE 2MG/0.75ML INJ PEN 3ML INJECT 2MG ACTIVE SUBCUTANEOUSLY ONCE A WEEK Intervention(s)/Plan: identified by full name and . He denies symptoms of hypoglycemia yesterday. He advised that he has been maintaining consistent carb diet with 45 CHO as recommended. He reports that he did not take the 10 units of Humulin at bedtime yesterday because he was worried about BG going low again while he slept. Vet denies any change to his diet or activity level. Vet explains that elevated BP readings on 04/10 and 04/11 occurred during his active Covid infection from which he now feels fully recovered. Vet indicates that he has been planning on reaching out to Dr Velasco because he has not been taking the 10 units of Humulin on most nights . Specialty Cook encouraged to discuss this with his hand molder and advised that message would be forwarded to his provider with update per above. Dr Aram Baez reports he has not been taking Humulin 10 units at night due to low readings and concern for hypoglycemia during sleep. Please review and advise. TYPE OF ENCOUNTER: Telephone Length of call: 5-10 minutes /skinny/ Jose Santos RN [facility]-Home Telehealth Freezer Laboratory Technician Signed: 04/15/2024 11:13 Receipt Acknowledged By: 04/17/2024 13:32 /eusebio VELASCO MD STAFF PHYSICIAN 04/17/2024 ADDENDUM STATUS: COMPLETED Spoke with pt. Reduce U500 to 80/50/40 with meals. /eusebio VELASCO MD STAFF PHYSICIAN Signed: 04/17/2024 13:31 [facility] [place] [facility]
--- OUTSIDE RECORDS SUMMARY | 2024-05-29 10:33 | XMS_ITS | Encounter Summary ---
Author Name [facility] [place] Address [address] [place] [address] Care Team Providers Care Sail Finisher Machine Name Role Phone STACEY HORTON [facility] [...] STAND YON SELF May 29, [phone] [id number] Abdullahi SEVERINO PATIENT MEDICARE (WNR) MEDICARE (M) PART B Jul 18, 2012 PART B [id number] [phone] Abdullahi SEVERINO PATIENT MEDICARE (WNR) MEDICARE (M) PART B Jul 18, 2012 PART B [id number] Abdullahi SEVERINO PATIENT MEDICARE (WNR) MEDICARE (M) PART B Jul 18, 2012 PART B [id number] Abdullahi SEVERINO PATIENT MEDICARE (WNR) MEDICARE (M) PART A Dec 19, 2011 PART A [id number] Abdullahi SEVERINO PATIENT MEDICARE (WNR) MEDICARE (M) PART A Dec 19, 2011 PART A [id number] Abdullahi SEVERINO PATIENT MEDICARE (WNR) MEDICARE (M) PART A Dec 19, 2011 PART A [id number] Abdullahi SEVERINO PATIENT Selected Encounter This section includes the information on record at [place] for the Encounter. Date/Time Encounter Type Encounter Description Reason Provider Source Mar 23, 2024 09:07 AM Outpatient Encounter GENERAL INTERNAL MEDICINE ICD-10-CM E11.9 Type 2 diabetes mellitus without complications WILLI PHILLIP [facility] Encounter Template Text not used by [place] Assessments - Encounter Diagnoses This section includes the primary and secondary diagnoses documented for the Encounter. Date/Time Primary/Secondary Diagnosis Diagnosis Name Provider Source Mar 23, 2024 09:07 AM PRIMARY Type 2 diabetes mellitus without complications WILLI PHILLIP [facility] [place] [place] [facility] Plan of Treatment: Future Appointments (+ 6 months) and Future Tests (+/- 45 days) The Plan of Treatment section includes future care activities for the patient [facility] all [place] [facility] This section includes future appointments and [...] 25, 2024 01:00 PM [facility] Apr 06, 2024 10:00 AM AMBULATORY - MEDICINE [place] C [place] [facility] Apr 23, 2024 10:45 AM AMBULATORY - NONE [place] [facility] Apr 29, 2024 10:00 AM AMBULATORY - MEDICINE [place] C [place] [facility] Jun 01, 2024 11:30 AM AMBULATORY - MEDICINE [place] C [place] [facility] Sep 10, 2024 10:00 AM AMBULATORY - NONE [place] [facility] Active, Pending, and Scheduled Orders [...] MICROALBUMIN CREATININE RATIO PANEL URINE (RANDOM) SP [place] [facility] [facility] Apr 29, 2024 10:07 AM Consult Order COMMUNITY CARE-MRI Cons Pipe Fitter Maintenance's Choice [place] [facility] Social History: Smoking Status (Most current) [...] took place. Date/Time Current Smoking Status Comment [facility] Apr 05, 2023 11:30 AM VA-TOBACCO [facility] Tobacco Use History This section includes a history of the smoking, or tobacco-related health factors, that were collected on or before the date of the Encounter. The data comes from the [place] facility where the Encounter took place. Date/Time Smoking Status/Tobac co Use Comment Facility Apr 05, 2023 11:30 AM VA-TOBACCO QUIT 15 YRS OR MORE [place] [facility] [place] [facility] Dec 28, 2021 09:30 AM VA-TOBACCO FORMER USER [place] [facility] Dec 28, 2021 09:30 AM VA-TOBACCO QUIT 15 YRS OR MORE [place] [facility] [facility] Dec 02, 2020 09:00 AM VA-TOBACCO FORMER USER [place] [facility] Dec 02, 2020 09:00 AM VA-TOBACCO QUIT 15 YRS OR MORE [place] [facility] Aug 18, 2019 03:19 PM VA-TOBACCO FORMER USER [place] [facility] Aug 18, 2019 03:19 PM VA-TOBACCO QUIT 15 YRS OR MORE [place] [facility] September 23, 2018 09:58 AM VA-TOBACCO FORMER USER [facility] September 23, 2018 09:58 AM VA-TOBACCO QUIT 15 YRS OR MORE [facility] September 30, 2017 09:20 AM QUIT TOBACCO USE > 7 YEARS AGO [facility] Aug 20, 2016 09:17 AM QUIT TOBACCO USE > 7 YEARS AGO quit [facility] Jun 27, 2016 09:45 AM CURRENT SMOKER Quit 25 years ago [facility] Apr 18, 2015 09:06 AM QUIT TOBACCO USE > 7 YEARS AGO quit in 1991 [facility] Mar 21, 2005 10:12 AM HISTORY OF SMOKING [facility] Mar 21, 2005 10:12 AM QUIT TOBACCO USE > 7 YEARS AGO [facility] Advance Directives: All historical and current [...] Feb 04, 2019 ADVANCE DIRECTIVE [facility] Encounter Notes: All associated encounter notes This section contains the clinical notes associated to the Encounter. Date/Time Encounter Note(s) Provider Source Mar 05, 2024 09:07 AM DIABETOLOGY NOTE: LOCAL TITLE: INSULIN PUMP/CGM DOWNLOAD (T) STANDARD TITLE: DIABETOLOGY NOTE DATE OF NOTE: MAR 05, 2024@09:07 ENTRY DATE: MAR 23, 2024@09:07:49 AUTHOR: WILLI PHILLIP EXP COSIGNER: URGENCY: STATUS: COMPLETED Please select: Personal Continuous Glucose Monitor Date of Documentation:Feb Please see attached scanned document in [employer]. Bhargav 3 DX: Type 2 DM /es/ WILLI PHILLIP RN Signed: 03/23/2024 09:08 [facility]
--- OUTSIDE RECORDS SUMMARY | 2024-05-29 10:33 | XMS_ITS | Encounter Summary ---
Author Name [facility] Organization [facility] Address [address] [place] [address] Care Team Providers Care Engineering Recruiter Name Role Phone STACEY HORTON Primary Care [...] STAND YON SELF May 29, 2001 [phone] Abdullahi SEVERINO PATIENT MEDICARE (WNR) MEDICARE (M) PART B Jul 18, 2012 PART B [id number] Abdullahi SEVERINO PATIENT MEDICARE (WNR) MEDICARE (M) PART B Jul 18, 2012 PART B [id number] Abdullahi SEVERINO PATIENT MEDICARE (WNR) MEDICARE (M) PART B Jul 18, 2012 PART B [id number] Abdullahi SEVERINO PATIENT MEDICARE (WNR) MEDICARE (M) PART A Dec 19, 2011 PART A [id number] Abdullahi SEVERINO PATIENT MEDICARE (WNR) MEDICARE (M) PART A Dec 19, 2011 PART A [id number] Abdullahi SEVERINO PATIENT MEDICARE (WNR) MEDICARE (M) PART A Dec 19, 2011 PART A [id number] [phone] Abdullahi SEVERINO PATIENT Selected Encounter This section includes the information on record at [place] for the Encounter. Date/Time Encounter Type Encounter Description Reason Pro vider Source Mar 13, 2024 12:00 AM Outpatient Encounter EVENT (HISTORICAL) [...] The data comes from all [facility]. Appointment Date/Time Appointment Type Appointme nt Facility Name Mar 25, 2024 01:00 PM [facility] Apr 06, 2024 10:00 AM [facility]ICINE [facility] [place] [facility] Apr 23, 2024 10:45 AM AMBULATORY NONE [facility] [place] [facility] Apr 29, 2024 10:00 AM AMBULATORY MEDICINE [facility] [place] [facility] Jun 01, 2024 11:30 AM AMBULATORY - MEDICINE [facility] [place] [facility] Sep 10, 2024 10:00 AM [facility] [place] [facility] Active, Pending, and Scheduled Orders This section includes a listing of several types of active, pending, and scheduled orders, including clinic medications orders, diagnostic test orders, procedure orders and consult orders; where the start date of the order is 45 days before the date of the Encounter or 45 days after the date of theEncounter. The data comes from all [facility]. Test Date/Time Test Type Test Details Facility Name Mar 05, 2024 12:00 AM Laboratory - Chemistry Order MICROALBUMIN CREATININE RATIO PANEL URINE (RANDOM) SP [facility] Lab Results: +/- 30 days [...] Range Comment Feb 21, 2024 08:31 AM [facility] HEMOGLOBIN A1C PANEL Specimen [...] Dec 05, 2023 10:51 AM Reporting Lab: [facility] [address] [facility] [address] Performing Lab: [address] [address] HEMOGLOBIN A1C 6.0 H 4.0-5.6 Feb 21, 2024 08:31 AM [facility] MICROALBUMIN CREATININE RATIO PANEL Specimen Type: URINE No comment entered. Ordering Provider: DEISY VELASCO Report Released Date/Time: Dec 05, 2023 10:51 AM Reporting Lab: [address] [address] Performing Lab: [address] [address] MICROALBUMIN/C REATININE RATIO 37.8 mg/g H 0-29.9 MICROALBUMIN,Q UANTITATIVE 5.0 mg/dL RR UNAVAIL CREATININE URINE 132.11 mg/dL Feb 21, 2024 08:31 AM [facility] LIPID PANEL FASTING Specimen Type: SERUM No comment entered. Ordering Provider: DEISY VELASCO Report Released Date/Time: Dec 05, 2023 10:51 AM Reporting Lab: [facility] [address] [facility] [address] Performing Lab: [facility] [address] [facility] [address] CHOLESTEROL 102 mg/dL TRIGLYCERIDE 124 mg/dL 0-150 LDL calculated 44 mg/dL 0-129 CHOL/HDL 3.1 HDL CHOLESTEROL 33 mg/dL L 40-60 Feb 21, 2024 08:31 AM [facility] BASIC METABOLIC PANEL (non-fasting) Specimen Type: SERUM No comment entered. Ordering Provider: DEISY VELASCO Report Released Date/Time: Dec 05, 2023 10:51 AM Reporting Lab: [facility] [address] [facility] [address] Performing Lab: [address] [address] UREA NITROGEN 15 mg/dL 7-25 GLUCOSE 183 [...] took place. Date/Time Current Smoking Status Comment [facility] Apr 05, 2023 11:30 AM VA-TOBACCO FORMER USER [facility] Tobacco Use History This section includes a history of the smoking, or tobacco-related health factors, that were collected on or before the date of the Encounter. The data comes from the [place] facility where the Encounter took place. Date/Time Smoking Status/Tobac co Use Comment Facility Apr 05, 2023 11:30 AM [place]-TOBACCO QUIT 15 YRS OR MORE [facility] Dec 28, 2021 09:30 AM VA-TOBACCO FORMER USER [facility] [place] [facility] Dec 28, 2021 09:30 AM VA-TOBACCO QUIT 15 YRS OR MORE [facility] [place] [facility] Dec 02, 2020 09:00 AM VA-TOBACCO FORMER USER [facility] [place] [facility] Dec 02, 2020 09:00 AM VA-TOBACCO QUIT 15 YRS OR MORE [facility] [place] [facility] Aug 18, 2019 03:19 PM VA-TOBACCO FORMER USER [facility] [place] [facility] Aug 18, 2019 03:19 PM VA-TOBACCO QUIT 15 YRS OR MORE [facility] [place] [facility] September 23, 2018 09:58 AM VA-TOBACCO FORMER USER [facility] [place] [facility] September 23, 2018 09:58 AM VA-TOBACCO QUIT 15 YRS OR MORE [facility] [place] [facility] September 30, 2017 09:20 AM QUIT TOBACCO USE > 7 YEARS AGO [facility] [place] [facility] Aug 20, 2016 09:17 AM QUIT TOBACCO USE > 7 YEARS AGO quit 1991 [facility] [place] [facility] Jun 27, 2016 09:45 AM CURRENT SMOKER Quit 25 years ago [facility] [place] [facility] Apr 18, 2015 09:06 AM QUIT TOBACCO USE > 7 YEARS AGO [facility] 1991 [facility] [place] [facility] Mar 21, 2005 10:12 AM HISTORY OF SMOKING [facility] [place] [facility] Mar 21, 2005 10:12 AM QUIT TOBACCO USE > 7 YEARS AGO [facility] Advance Directives: All historical and current [...] 2019 ADVANCE DIRECTIVE CESAR LUA [facility] Encounter Notes: All associated encounter notes This section contains the clinical notes associated to the Encounter. Date/Time Encounter Note(s) Provider Source Mar 13, 2024 12:00 AM NONVA NOTE: LOCAL TITLE: NON-VA OUTPATIENT NOTES STANDARD TITLE: NONVA NOTE DATE OF NOTE: MAR 13, 2024 ENTRY DATE: APR 07, 2024@06:52:30 AUTHOR: ALYCIA GILL COSIGNER: URGENCY: STATUS: COMPLETED VistA Imaging - Scanned Document SCANNED DOCUMENT SIGNATURE NOT REQUIRED Electronically Filed: 04/07/2024 by: ELDA GILL Billet Straightener ELDA GILL [facility]
--- OUTSIDE RECORDS SUMMARY | 2024-05-29 10:33 | XMS_ITS | Encounter Summary ---
Author Name [facility] [facility] [place] Address [address] [place] [id number] Care Team Providers Care Bi Report Developer Name Role Phone STACEY AGGARWAL Primary Care [...] STAND YON SELF May 29, [phone] [id number] [phone] Abdullahi SEVERINO PATIENT MEDICARE (WNR) MEDICARE (M) PART B Jul 18, 2012 PART B [id number] Abdullahi SEVERINO PATIENT MEDICARE (WNR) MEDICARE (M) PART B Jul 18, 2012 PART B [id number] Abdullahi SEVERINO PATIENT MEDICARE (WNR) MEDICARE (M) PART B Jul 18, 2012 PART B [id number] Abdullahi SEVERINO PATIENT MEDICARE (WNR) MEDICARE (M) PART A Dec 19, 2011 PART A [id number] Abdullahi SEVERINO PATIENT MEDICARE (WNR) MEDICARE (M) PART A Dec 19, 2011 PART A [id number] Abdullahi SEVERINO PATIENT MEDICARE (WNR) MEDICARE (M) PART A Dec 19, 2011 PART A [id number] Abdullahi SEVERINO PATIENT Selected Encounter This section includes the information on record at [place] for the Encounter. Date/Time Encounter Type Encounter Description Reason Provider Source Mar 25, 2024 01:00 PM DIAB MANAGE TRN PER INDIV DIABETES CLINIC ICD-10-CM E11.9 Type 2 diabetes mellitus without complications IBRAHIMA VANCE Afshin Encounter Template Text not used by [place] Assessments - Encounter Diagnoses This section includes the primary and secondary diagnoses documented for the Encounter. Date/Time Primary/Secondary Diagnosis Diagnosis Name Provider Source Mar 25, 2024 02:59 PM PRIMARY Type 2 diabetes mellitus without complications MAURO VANCE [place] Plan of Treatment: Future Appointments (+ 6 months) and Future Tests (+/- 45 days) The Plan of Treatment section includes future care activities [facility] the [facility] [place] [facility]. This section includes future appointments [...] MEDICINE [facility] [place] [facility] Apr 23, 2024 10:45 AM AMBULATORY - NONE [facility] Apr 29, 2024 10:00 AM AMBULATORY - MEDICINE [facility] [place] [facility] Jun 01, 2024 11:30 AM AMBULATORY - MEDICINE [facility] Sep 10, 2024 10:00 AM [facility]UL[facility]ORY [facility]ONE [facility] Active, Pending, and Scheduled Orders This [...] CREATININE RATIO PANEL URINE (RANDOM) SP [facility] Apr 29, 2024 10:07 AM Consult Order COMMUNITY CARE-MRI Cons Aluminum Siding Mechanic's Choice [facility] Advance Directives: All historical and current Section [...] Source Feb 04, 2019 ADVANCE DIRECTIVE STONEYBENYI [facility] W [facility] Encounter Notes: All associated encounter notes This section contains the clinical notes associated to the Encounter. Date/Time Encounter Note(s) Provider Source Mar 25, 2024 03:04 PM DIABETOLOGY NOTE: LOCAL TITLE: INSULIN PUMP/CGM DOWNLOAD (T) STANDARD TITLE: DIABETOLOGY NOTE DATE OF NOTE: MAR 25, 2024@15:04 ENTRY DATE: MAR 25, 2024@15:04:28 AUTHOR: MAURO VANCE EXP COSIGNER: URGENCY: STATUS: COMPLETED Please select: Personal Continuous Glucose Monitor Date of Documentation:Mar Please see attached scanned document in [facility]. DX: Type 2 diabetes Sensor: Bhargav 3 /es/ MAURO VANCE, RN,BSN, [facility] DIABETES HEEL COVERER, RN Signed: 03/25/2024 15:04 MAURO VANCE [place] Mar 25, 2024 03:00 PM ADDENDUM: LOCAL TITLE: Addendum STANDARD TITLE: ADDENDUM DATE OF NOTE: MAR 25, 2024@15:00:05 ENTRY DATE: MAR 25, 2024@15:00:05 AUTHOR: MAURO VANCE EXP COSIGNER: URGENCY: STATUS: COMPLETED Dr. Velasco, 's sensor download shows he is having 8% of hypoglycemia with his sensor. His A1C is consistent at 6.0% in February. However, does not report having symptoms unless his glucose is down in the 40s. admits that every time he check his glucose with his meter, his glucose is always 25 mg/dl higher than the sensor. Therefore, every time he has a low glucose, he reports that his glucose is not actually low. Therefore, we discussed options of trying the Dexcom G7 sensor. What are you thoughts on switching him? Do you think that would be a good option? If you agree with plan, I will place RXs and consults for you to sign off on. Thank you. /es/ MAURO VANCE RN,BSN, [facility] DIABETES HEEL COVERER, RN Signed: 03/25/2024 15:03 Receipt Acknowledged By: 03/27/2024 18:03 /es/ DEISY VELASCO MD STAFF PHYSICIAN --- Original Document --- 03/25/24 DIABETES EDU FOLLOW UP: FOLLOW UP DIABETES EDUCATION VISIT Demographics: Patient Name: OTONIEL SEVERINO Age: 79 Sex: MALE Race: WHITE MARITAL STATUS - NEVER Introduction: identified with 2 identifiers: [X] Full Name [X] Date of [ ] Address [ ] [place] ID Card PATIENT PHONE - PHONE NUMBER [CELLULAR] - Is patient phone number correct, if not, enter below: 's phone number: OTONIEL SEVERINO [address], [place], [address] MOST RECENT LABS: HEMOGLOBIN A1C TREND Collection DT Spec HGBA1c 02/21/2024 08:31 BLOOD 6.0 H 12/05/2023 10:58 BLOOD 6.0 H 08/16/2023 07:56 BLOOD 7.3 H 04/25/2023 08:45 BLOOD 6.7 H 01/22/2023 09:03 BLOOD 8.0 H CHEM 7 TREND LAB CUMULATIVE SELECTED Collection DT Spec GLUCOSE BUN CREATIN Sodium K+/Pot CL CO2 02/21/2024 08:31 SERUM 183 H 15 0.80 137 4.3 104 22 12/05/2023 10:58 SERUM 147 H 19 0.92 136 4.6 104 23 08/16/2023 07:56 SERUM 162 H 17 1.06 139 4.1 104 24 04/25/2023 08:45 SERUM 89 21 0.94 140 4.0 106 25 01/22/2023 09:03 SERUM 178 H 26 H 1.07 136 4.2 101 23 Collection DT Spec eGFR 03/01/2009 08:58 SERUM >60 03/09/2008 11:19 SERUM >60 LAB CUMULATIVE SELECTED 2 No selection items chosen for this component. CHEM 7 Results Collection DT Spec Sodium K+/Pot CL CO2 GLUCOSE BUN eGFR 02/21/2024 08:31 SERUM 137 4.3 104 22 183 H 15 12/05/2023 10:58 SERUM 136 4.6 104 23 [...] Spec CHOL HDL CHO/HDL LDL-d LDL-c TRIG 02/21/2024 08:31 SERUM 102 33 L 3.1 44 124 08/16/2023 07:56 SERUM 122 31 L 3.9 45 Reflex to dLDL 399 H 04/25/2023 08:45 SERUM 119 29 L 4.1 39 Reflex to dLDL 709 H 01/22/2023 09:03 SERUM 135 31 L 4.4 45 Reflex to dLDL 550 H 06/22/2022 08:29 SERUM 128 29 L 4.4 45 Reflex to dLDL 548 H CREATININE-EGFR 02/21/24 08:31 0.80 12/05/23 10:58 0.92 08/16/23 07:56 1.06 EGFR - NONE FOUND WEIGHT: 229 lb [103.87 kg] (03/05/2024 13:26) HEIGHT: 71 in [180.3 cm] (12/05/2023 10:15) BMI: 32.0 ___ REASON FOR VISIT: Type 2 diabetes, being treated with U500 concentrated insulin. [place] reports he is taking 0.5 mg once a week of the Ozempic. [place] encouraged to increase it to 1.0 mg once a week since he was recently prescribed 2.0 mg once a week and we thought he was on the higher dose at his previous visit. Had right knee replacement surgery in September. Had left knee replacement surgery in December. Was given pain medication for the knee. He does get pain in his knee occasionally. He lost his appetite when he took the Oxy. Behavior health goals set at previous visit: Continue taking doses of U500 insulin and continue to wear the Bhargav sensor to check blood sugars. Clinical or Quality of Life outcome goal set at last visit: Diabetes Distress Support: On a scale of 1-6 where 1 is no problem and 6 is a very serious problem, rate the following: Feeling overwhelmed by the demands of living with diabetes: Feeling that I am failing my diabetes routine: NUTRITION: In the last 12 months, were there times when the food for you just did not last and there was no money to buy more? No MEALS: BREAKFAST- oatmeal with milk (has plastic teeth and they have cracked) LUNCH- glass of milk DINNER- clam chowder (may have 2 cans) SNACKS- fruit and sometimes at night, crackers with butter BEVERAGES CARBOHYDRATE COUNTING- MEAL PLANNING WITH PLATE METHOD- FOOD LABELING- BENEFITS OF WEIGHT LOSS- PHYSICAL ACTIVITY Walking without a cane now. Services utilized during the past year Clinic visit/primary care provider- Nutrition/dietitian- not recently. Podiatry- goes to [facility] Eye exam- May 2023, goes to [facility] Lab tests- done in November. Dental- Cardiac- Vaccines- Comments: BLOOD GLUCOSE MONITORING Downloaded Destiney's Bhargav 3 industrial relations specialist in clinic today: Name: Otoniel SEVERINO Date of : 1945 Report Period: 02/26/2024 - 03/24/2024 (28 days) Generated: 03/25/2024 % Time CGM Active: 80% Glucose Statistics and Targets Average Glucose: 149 mg/dL Glucose Management Indicator (GMI): 6.9% Glucose Variability (%CV): 39.0% Target Range: 70 - 180 mg/dL Time in Ranges Very High: >250 mg/dL --- 5% High: 181 - 250 mg/dL --- 24% Target Range: 70 - 180 mg/dL --- 63% Low: 54 - 69 mg/dL --- 6% Very Low: <54 mg/dL --- 2% The main trend noted are slightly elevated glucose between the hours of 10 am until 1 pm. Those are just above 180 mg/dl, however, Destiney is having a total of 8% low glucose and he admits he checks his glucose often with his meter and they are not low when he checks it. He does not have symptoms. Therefore, he wonders why this keeps happening to him. Recommended that he consider using the Dexcom G7 sensor instead. Download from December of 2023: Name: Otoniel SEVERINO Date of : 1945 [...] when glucose is elevated the times vary. Download from October of 2023: Name: Otoniel SEVERINO Date of : 1945 [...] low glucose for the last 30 days. DIABETES MEDICATIONS: U500 insulin before meals (3x/day): 80-50-60 units Empagliflozin 25 mg, 1 tab once a day. Metformin 500 mg, 1 tab twice a day. Semaglutide 0.5 mg once a week (every Saturday) ADMINISTERS VIA pen STORAGE OF INSULIN/OTHER INJECTABLES: INJECTIONS SITES: legs SITES VIEWED: No ANY EVIDENCE OF LIPOHYPERTROPHY HYPOGLYCEMIA Finds that the sensor goes off at night for hypoglycemia. He does not have symptoms and when he checks his glucose, he finds the sensor is off by 25 mg/dl. He does end up eating something. Will eat fruit. Has found that bananas work for him. Download of sensor reveals 8% of low glucose. He admits he questions the accuracy of the sensor because his meter is always 25 mg/dl higher than the sensor when he checks his glucose when it is low. CAUSES/SYMPTOMS: shaky, zoning out, needs to eat TREATMENT/PREVENTION: bananas MEDIC ID/ HAS ONE: No, interested in a bracelet GLUCAGON: Yes, his adopted son DRIVING SAFETY: Reviewed HYPERGLYCEMIA ASSESSMENT: Kindly referred by Dr. Velasco. Being treated with U500 insulin, in addition to Freestyle Bhargav 3 sensor. Last A1C was 6.0% in February. Destiney questions how accurate the sensor is since the sensor is reading lower blood sugars quite frequently and his meter does not reveal any recent hypoglycemia. He admits he checks his meter often when he is woken up with hypoglycemia and his blood glucose is 25 mg/dl higher on the meter compared to the sensor. We discussed an option for him is to try another sensor. We will check with Dr. Velasco if she agrees with plan. Destiney is currently taking U500 insulin 80-50-60 units before meals. No changes made at this time. Destiney was also encouraged to increase his dose of Ozempic to 1.0 mg once a week. We thought he was on the higher dose, however, he reports he is taking 0.5 mg once a week. Destiney is scheduled to see Endocrine in May and will return to see Diabetes Education in 6 months. However, if we prescribe him a Dexcom G7 sensor, he will return in a month to learn how to use it. Behavioral goal 1 met: 100% of the [...] & Assessment: 12/05/22; 04/03/23; 08/07/23; 11/20/23; 12/25/23; 03/25/24; Healthy Eating (Describe effect of type, amount and timing of food on blood glucose; list 3 methods for planning meals) Dates Covered & Assessment: 12/05/22; 04/03/23; 08/07/23; 11/20/23; 12/25/23; 03/25/24; Being Active (State effect of exercise on blood glucose levels) Dates Covered & Assessment: 12/05/22; 04/03/23; 08/07/23; 11/20/23; 12/25/23; 03/25/24; Taking Medication (State effect of diabetes medicines on diabetes; name diabetes medication taking, action and side effects) Dates Covered & Assessment: 12/05/22; 04/03/23; 08/07/23; 11/20/23; 12/25/23; 03/25/24; Monitoring Glucose (Identify recommended blood glucose targets and personal targets) Dates Covered & Assessment: 12/05/22; 04/03/23; 08/07/23; 11/20/23 (reviewed Bhargav 3); 12/25/23; 03/25/24; Acute Complications (List symptoms and treatment of hyper- and hypoglycemia, DKA, sick day guidelines and guidelines for severe weather or situation crisis and diabetes supply management) Dates Covered & Assessment: 12/05/22; 04/03/23; 08/07/23; 11/20/23; 12/25/23; 03/25/24; Chronic Complications (Define the relationship of blood glucose levels to [place] [facility] complications of diabetes and screening and preventative measures) Dates Covered & Assessment: 12/05/22; 04/03/23; 08/07/23; 11/20/23; 12/25/23; 03/25/24; Lifestyle and Healthy Coping (Describe life style and healthy coping strategies to promote diabetes self-management) Dates Covered & Assessment: 12/05/22; 04/03/23; 08/07/23; 11/20/23; 12/25/23; 03/25/24; Diabetes Distress and Support (Recognize diabetes Distress and be able to identify support options) Dates Covered & Assessment: 12/05/22; 04/03/23; 08/07/23; 11/20/23; 12/25/23; 03/25/24; HEALTH GOAL #1: In order to meet this goal, I will: Continue using the Bhargav 3 sensor to check glucose. HEALTH GOAL #2: In order to meet this goal, I will: Increase Ozempic to 1.0 mg once a week for a month and then increase dose to 2.0 mg once a week if you are tolerating the medication well. Clinical or Quality of Life outcome baseline: FUTURE APPOINTMENTS: 03/25/2024 13:00 CWM/SO/DIABETES EDU1 04/06/2024 10:00 CWM/NO/PACT 7 04/23/2024 10:45 CWM/NO/NUTRITION 06/01/2024 11:30 NHM/ENDOCRINE DM type is : Type 2 diabetes Length of Visit: 60 minutes /skinny/ MAURO VANCE RN,BSN, [facility] DIABETES HEEL COVERER, RN Signed: 03/25/2024 14:59 Receipt Acknowledged By: 03/27/2024 18:02 /es/ DEISY VELASCO MD STAFF PHYSICIAN 03/26/2024 15:10 /es/ Stacey Aggarwal DNP, HOME HEALTH AIDE CAREGIVER-BC, CNL Primary Care Nurse Practitioner MAURO VANCEFIELD Mar 25, 2024 12:35 PM DIABETOLOGY EDUCAT ION NOTE: LOCAL TITLE: DIABETES EDU FOLLOW UP STANDARD TITLE: DIABETOLOGY EDUCATION NOTE DATE OF NOTE: MAR 25, 2024@12:35 ENTRY DATE: MAR 25, 2024@12:35:57 AUTHOR: MAURO VANCE EXP COSIGNER: URGENCY: STATUS: COMPLETED DIABETES EDU FOLLOW UP Has ADDENDA FOLLOW UP DIABETES EDUCATION VISIT Demographics: Patient Name: OTONIEL SEVERINO Age: 79 Sex: MALE Race: WHITE MARITAL STATUS - NEVER Introduction: [place] identified with 2 identifiers: [X] Full Name [X] Date of [ ] Address [ ] [place] ID Card PATIENT PHONE - PHONE NUMBER [CELLULAR] - Is patient phone number correct, if not, enter below: 's phone number: OTONIEL SEVERINO [address], [place], [address] MOST RECENT LABS: HEMOGLOBIN A1C TREND Collection DT Spec HGBA1c 02/21/2024 08:31 BLOOD 6.0 H 12/05/2023 10:58 BLOOD 6.0 H 08/16/2023 07:56 BLOOD 7.3 H 04/25/2023 08:45 BLOOD 6.7 H 01/22/2023 09:03 BLOOD 8.0 H CHEM 7 TREND LAB CUMULATIVE SELECTED Collection DT Spec GLUCOSE BUN CREATIN Sodium K+/Pot CL CO2 02/21/2024 08:31 SERUM 183 H 15 0.80 137 4.3 104 22 12/05/2023 10:58 SERUM 147 H 19 0.92 136 4.6 104 23 08/16/2023 07:56 SERUM 162 H 17 1.06 139 4.1 104 24 04/25/2023 08:45 SERUM 89 21 0.94 140 4.0 106 25 01/22/2023 09:03 SERUM 178 H 26 H 1.07 136 4.2 101 23 Collection DT Spec eGFR 03/01/2009 08:58 SERUM >60 03/09/2008 11:19 SERUM >60 LAB CUMULATIVE SELECTED 2 No selection items chosen for this component. CHEM 7 Results Collection DT Spec Sodium K+/Pot CL CO2 GLUCOSE BUN eGFR 02/21/2024 08:31 SERUM 137 4.3 104 22 183 H 15 12/05/2023 10:58 SERUM 136 4.6 104 23 [...] Spec CHOL HDL CHO/HDL LDL-d LDL-c TRIG 02/21/2024 08:31 SERUM 102 33 L 3.1 44 124 08/16/2023 07:56 SERUM 122 31 L 3.9 45 Reflex to dLDL 399 H 04/25/2023 08:45 SERUM 119 29 L 4.1 39 Reflex to dLDL 709 H 01/22/2023 09:03 SERUM 135 31 L 4.4 45 Reflex to dLDL 550 H 06/22/2022 08:29 SERUM 128 29 L 4.4 45 Reflex to dLDL 548 H CREATININE-EGFR 02/21/24 08:31 0.80 12/05/23 10:58 0.92 08/16/23 07:56 1.06 EGFR - NONE FOUND WEIGHT: 229 lb [103.87 kg] (03/05/2024 13:26) HEIGHT: 71 in [180.3 cm] (12/05/2023 10:15) BMI: 32.0 ___ REASON FOR VISIT: Type 2 diabetes, being treated with U500 concentrated insulin. reports he is taking 0.5 mg once a week of the Ozempic. encouraged to increase it to 1.0 mg once a week since he was recently prescribed 2.0 mg once a week and we thought he was on the higher dose at his previous visit. Had right knee replacement surgery in September. Had left knee replacement surgery in December. Was given pain medication for the knee. He does get pain in his knee occasionally. He lost his appetite when he took the Oxy. Behavior health goals set at previous visit: Continue taking doses of U500 insulin and continue to wear the Bhargav sensor to check blood sugars. Clinical or Quality of Life outcome goal set at last visit: Diabetes Distress Support: On a scale of 1-6 where 1 is no problem and 6 is a very serious problem, rate the following: Feeling overwhelmed by the demands of living with diabetes: Feeling that I am failing my diabetes routine: NUTRITION: In the last 12 months, were there times when the food for you just did not last and there was no money to buy more? No MEALS: BREAKFAST- oatmeal with milk (has plastic teeth and they have cracked) LUNCH- glass of milk DINNER- clam chowder (may have 2 cans) SNACKS- fruit and sometimes at night, crackers with butter BEVERAGES CARBOHYDRATE COUNTING- MEAL PLANNING WITH PLATE METHOD- FOOD LABELING- BENEFITS OF WEIGHT LOSS- PHYSICAL ACTIVITY Walking without a cane now. Services utilized during the past year Clinic visit/primary care provider- Nutrition/dietitian- not recently. Podiatry- goes to [facility] Eye exam- May 2023, goes to [facility] Lab tests- done in November. Dental- Cardiac- Vaccines- Comments: BLOOD GLUCOSE MONITORING Downloaded 'Lotaris Bhargav 3 industrial relations specialist in clinic today: Name: Otoniel SEVERINO Date of : 1945 Report Period: 02/26/2024 - 03/24/2024 (28 days) Generated: 03/25/2024 % Time CGM Active: 80% Glucose Statistics and Targets Average Glucose: 149 mg/dL Glucose Management Indicator (GMI): 6.9% Glucose Variability (%CV): 39.0% Target Range: 70 - 180 mg/dL Time in Ranges Very High: >250 mg/dL --- 5% High: 181 - 250 mg/dL --- 24% Target Range: 70 - 180 mg/dL --- 63% Low: 54 - 69 mg/dL --- 6% Very Low: <54 mg/dL --- 2% The main trend noted are slightly elevated glucose between the hours of 10 am until 1 pm. Those are just above 180 mg/dl, however, [place] is having a total of 8% low glucose and he admits he checks his glucose often with his meter and they are not low when he checks it. He does not have symptoms. Therefore, he wonders why this keeps happening to him. Recommended that he consider using the Dexcom G7 sensor instead. Download from December of 2023: Name: Otoniel SEVERINO Date of : 1945 [...] when glucose is elevated the times vary. Download from October of 2023: Name: Otoniel SEVERINO Date of : 1945 [...] low glucose for the last 30 days. DIABETES MEDICATIONS: U500 insulin before meals (3x/day): 80-50-60 units Empagliflozin 25 mg, 1 tab once a day. Metformin 500 mg, 1 tab twice a day. Semaglutide 0.5 mg once a week (every Saturday) ADMINISTERS VIA pen STORAGE OF INSULIN/OTHER INJECTABLES: INJECTIONS SITES: legs SITES VIEWED: No ANY EVIDENCE OF LIPOHYPERTROPHY HYPOGLYCEMIA Finds that the sensor goes off at night for hypoglycemia. He does not have symptoms and when he checks his glucose, he finds the sensor is off by 25 mg/dl. He does end up eating something. Will eat fruit. Has found that bananas work for him. Download of sensor reveals 8% of low glucose. He admits he questions the accuracy of the sensor because his meter is always 25 mg/dl higher than the sensor when he checks his glucose when it is low. CAUSES/SYMPTOMS: shaky, zoning out, needs to eat TREATMENT/PREVENTION: bananas MEDIC ID/ HAS ONE: No, interested in a bracelet GLUCAGON: Yes, his adopted son DRIVING SAFETY: Reviewed HYPERGLYCEMIA ASSESSMENT: Kindly referred by Dr. Velasco. Being treated with U500 insulin, in addition to Freestyle Bhargav 3 sensor. Last A1C was 6.0% in February. Destiney questions how accurate the sensor is since the sensor is reading lower blood sugars quite frequently and his meter does not reveal any recent hypoglycemia. He admits he checks his meter often when he is woken up with hypoglycemia and his blood glucose is 25 mg/dl higher on the meter compared to the sensor. We discussed an option for him is to try another sensor. We will check with Dr. Velasco if she agrees with plan. Destiney is currently taking U500 insulin 80-50-60 units before meals. No changes made at this time. Destiney was also encouraged to increase his dose of Ozempic to 1.0 mg once a week. We thought he was on the higher dose, however, he reports he is taking 0.5 mg once a week. Destiney is scheduled to see Endocrine in May and will return to see Diabetes Education in 6 months. However, if we prescribe him a Dexcom G7 sensor, he will return in a month to learn how to use it. Behavioral goal 1 met: 100% of the [...] & Assessment: 12/05/22; 04/03/23; 08/07/23; 11/20/23; 12/25/23; 03/25/24; Healthy Eating (Describe effect of type, amount and timing of food on blood glucose; list 3 methods for planning meals) Dates Covered & Assessment: 12/05/22; 04/03/23; 08/07/23; 11/20/23; 12/25/23; 03/25/24; Being Active (State effect of exercise on blood glucose levels) Dates Covered & Assessment: 12/05/22; 04/03/23; 08/07/23; 11/20/23; 12/25/23; 03/25/24; Taking Medication (State effect of diabetes medicines on diabetes; name diabetes medication taking, action and side effects) Dates Covered & Assessment: 12/05/22; 04/03/23; 08/07/23; 11/20/23; 12/25/23; 03/25/24; Monitoring Glucose (Identify recommended blood glucose targets and personal targets) Dates Covered & Assessment: 12/05/22; 04/03/23; 08/07/23; 11/20/23 (reviewed Bhargav 3); 12/25/23; 03/25/24; Acute Complications (List symptoms and treatment of hyper- and hypoglycemia, DKA, sick day guidelines and guidelines for severe weather or situation crisis and diabetes supply management) Dates Covered & Assessment: 12/05/22; 04/03/23; 08/07/23; 11/20/23; 12/25/23; 03/25/24; Chronic Complications (Define the relationship of blood glucose levels to [place] [facility] complications of diabetes and screening and preventative measures) Dates Covered & Assessment: 12/05/22; 04/03/23; 08/07/23; 11/20/23; 12/25/23; - 03/25/24; Lifestyle and Healthy Coping (Describe life style and healthy coping strategies to promote diabetes self-management) Dates Covered & Assessment: 12/05/22; 04/03/23; 08/07/23; 11/20/23; 12/25/23; 03/25/24; Diabetes Distress and Support (Recognize diabetes Distress and be able to identify support options) Dates Covered & Assessment: 12/05/22; 04/03/23; 08/07/23; 11/20/23; 12/25/23; 03/25/24; HEALTH GOAL #1: In order to meet this goal, I will: Continue using the Bhargav 3 sensor to check glucose. HEALTH GOAL #2: In order to meet this goal, I will: Increase Ozempic to 1.0 mg once a week for a month and then increase dose to 2.0 mg once a week if you are tolerating the medication well. Clinical or Quality of Life outcome baseline: FUTURE APPOINTMENTS: 03/25/2024 13:00 CWM/SO/DIABETES EDU1 04/06/2024 10:00 CWM/NO/PACT 7 04/23/2024 10:45 CWM/NO/NUTRITION 06/01/2024 11:30 NHM/ENDOCRINE DM type is : Type 2 diabetes Length of Visit: 60 minutes /es/ MAURO VANCE RN,BSN, [facility] DIABETES HEEL COVERER, RN Signed: 03/25/2024 14:59 Receipt Acknowledged By: 03/27/2024 18:02 /skinny/ DEISY VELASCO MD STAFF PHYSICIAN 03/26/2024 15:10 /es/ Stacey Aggarwal DNP, HOME HEALTH AIDE CAREGIVER-BC, CNL Primary Care Nurse Practitioner 03/25/2024 ADDENDUM STATUS: COMPLETED Dr. Velasoc, 's sensor download shows he is having 8% of hypoglycemia with his sensor. His A1C is consistent at 6.0% in February. However, does not report having symptoms unless his glucose is down in the 40s. [place] admits that every time he check his glucose with his meter, his glucose is always 25 mg/dl higher than the sensor. Therefore, every time he has a low glucose, he reports that his glucose is not actually low. Therefore, we discussed options of trying the Dexcom G7 sensor. What are you thoughts on switching him? Do you think that would be a good option? If you agree with plan, I will place RXs and consults for you to sign off on. Thank you. /skinny/ MAURO VANCE RN,BSN, [facility] DIABETES HEEL COVERER, RN Signed: 03/25/2024 15:03 Receipt Acknowledged By: * AWAITING SIGNATURE * DEISY VELASCO BONNIE P [place]
--- OUTSIDE RECORDS SUMMARY | 2024-05-29 10:33 | XMS_ITS | Encounter Summary ---
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 Role Phone STACEY AGGARWAL Primary Care Provider [facility] Insurance Providers: All historical and current [...] STAND YON SELF May 29, [phone] [id number] [phone] Abdullahi SEVERINO PATIENT MEDICARE (WNR) MEDICARE (M) PART B Jul 18, 2012 PART B [id number] Abdullahi SEVERINO PATIENT MEDICARE (WNR) MEDICARE (M) PART B Jul 18, 2012 PART B [id number] [phone] Abdullahi SEVERINO PATIENT MEDICARE (WNR) MEDICARE (M) PART B Jul 18, 2012 PART B [id number] Abdullahi SEVERINO PATIENT MEDICARE (WNR) MEDICARE (M) PART A Dec 19, 2011 PART A [id number] [phone] Abdullahi SEVERINO PATIENT MEDICARE (WNR) MEDICARE (M) PART A Dec 19, 2011 PART A [id number] Abdullahi SEVERINO PATIENT MEDICARE (WNR) MEDICARE (M) PART A Dec 19, 2011 PART A [id number] [phone] Abdullahi SEVERINO PATIENT Selected Encounter This section includes the information on record at [place] for the Encounter. Date/Time Encounter Type Encounter Description Reason Provider Source Feb 27, 2024 03:14 PM PRO PHONE CALL 21-30 MIN TELEPHONE PRIMARY CARE ICD-10-CM I10 Essential (primary) hypertension RISA,KRISTIE NDA [facility] Encounter Template Text not used by [place] Assessments - Encounter Diagnoses This section includes the primary and secondary diagnoses documented for the Encounter. Date/Time Primary/Secondary Diagnosis Diagnosis Name Provider Source Feb 27, 2024 03:14 PM PRIMARY Essential (primary) hypertension RISA,KRISTIE NDA [facility] [place] [facility] Feb 27, 2024 03:14 PM SECONDARY Obesity, unspecified RISA,KRISTIE NDA [facility] [place] [facility] Feb 27, 2024 03:14 PM SECONDARY Type 2 diabetes mellitus without complications [facility] [place] [facility] Plan of Treatment: Future Appointments (+ [...] 05, 2024 01:30 PM AMBULATORY - MEDICINE [place] [facility] [place] [facility] Mar 25, 2024 01:00 PM [facility] Apr 06, 2024 10:00 AM AMBULATORY - MEDICINE [place] [facility] [place] [facility] Apr 23, 2024 10:45 AM AMBULATORY - NONE [facility] Apr 29, 2024 10:00 AM AMBULATORY - MEDICINE [facility] Jun 01, 2024 11:30 AM AMBULATORY - MEDICINE [facility] Active, Pending, and Scheduled Orders This section includes a listing of several types of active, pending, and scheduled orders, including clinic medications orders, diagnostic test orders, procedure orders and consult orders; where the start date of the order is 45 days before the date of the Encounter or 45 days after the date of theEncounter. The data comes from all [place] treatment facilities. Test Date/Time Test Type Test Details Facility Name Mar 05, 2024 12:00 AM Laboratory - Chemistry Order MICROALBUMIN CREATININE RATIO PANEL URINE ([facility]ANDOM) SP [facility] Lab Results: +/- 30 days of the encounter This section includes the Chemistry and Hematology Lab Results on record with [place] for the patient. Radiology Reports and Pathology Reports are provided separately, in subsequent sections. Lab Results This section contains the Chemistry/Hematology Results that were resulted 30 days before or 30 daysafter the date of the Encounter. Date/Time Source Result Type Result - Unit Interpretation Reference Range Comment Feb 21, 2024 08:31 AM [facility] HEMOGLOBIN A1C PANEL Specimen Type: [...] Dec 05, 2023 10:51 AM Reporting Lab: [facility] [address] [facility] [address] Performing Lab: [address] [address] HEMOGLOBIN A1C 6.0 H 4.0-5.6 Feb 21, 2024 08:31 AM [facility] MICROALBUMIN CREATININE RATIO PANEL Specimen Type: URINE No comment entered. Ordering Provider: DEISY VELASCO Report Released Date/Time: Dec 05, 2023 10:51 AM Reporting Lab: [facility] [address] [facility] [address] Performing Lab: [address] [address] MICROALBUMIN/C REATININE RATIO 37.8 mg/g H 0-29.9 MICROALBUMIN,Q UANTITATIVE 5.0 mg/dL RR UNAVAIL CREATININE URINE 132.11 mg/dL Feb 21, 2024 08:31 AM [facility] LIPID PANEL FASTING Specimen Type: SERUM No comment entered. Ordering Provider: DEISY VELASCO Report Released Date/Time: Dec 05, 2023 10:51 AM Reporting Lab: [address] [address] Performing Lab: [address] [address] CHOLESTEROL 102 mg/dL TRIGLYCERIDE 124 mg/dL 0-150 LDL calculated 44 mg/dL 0-129 CHOL/HDL 3.1 HDL CHOLESTEROL 33 mg/dL L 40-60 Feb 21, 2024 08:31 AM [facility] BASIC METABOLIC PANEL (non-fasting) Specimen Type: SERUM No comment entered. Ordering Provider: DEISY VELASCO Report Released Date/Time: Dec 05, 2023 10:51 AM Reporting Lab: [address] [address] Performing Lab: [address] [address] UREA NITROGEN 15 mg/dL 7-25 GLUCOSE 183 [...] took place. Date/Time Current Smoking Status Comment [facility] Apr 05, 2023 11:30 AM VA-TOBACCO FORMER USER [place] [facility] [place] [facility] Tobacco Use History This section includes a history of the smoking, or tobacco-related health factors, that were collected on or before the date of the Encounter. The data comes from the [place] facility where the Encounter took place. Date/Time Smoking Status/Tobac co Use Comment Facility Apr 05, 2023 11:30 AM VA-TOBACCO QUIT 15 YRS OR MORE [facility] [place] [facility] Dec 28, 2021 09:30 AM VA-TOBACCO FORMER USER [facility] [place] [facility] Dec 28, 2021 09:30 AM VA-TOBACCO QUIT 15 YRS OR MORE [facility] [place] [facility] Dec 02, 2020 09:00 AM VA-TOBACCO FORMER USER [facility] [place] [facility] Dec 02, 2020 09:00 AM VA-TOBACCO QUIT 15 YRS OR MORE [facility] [place] [facility] Aug 18, 2019 03:19 PM VA-TOBACCO FORMER USER [facility] [place] [facility] Aug 18, 2019 03:19 PM VA-TOBACCO QUIT 15 YRS OR MORE [facility] [place] [facility] September 23, 2018 09:58 AM VA-TOBACCO FORMER USER [facility] [place] [facility] September 23, 2018 09:58 AM VA-TOBACCO QUIT 15 YRS OR MORE [facility] [place] [facility] September 30, 2017 09:20 AM QUIT TOBACCO USE > 7 YEARS AGO [facility] [place] [facility] Aug 20, 2016 09:17 AM QUIT TOBACCO USE > 7 YEARS AGO quit 1991 [facility] [place] [facility] Jun 27, 2016 09:45 AM CURRENT SMOKER Quit 25 years ago [facility] [place] [facility] Apr 18, 2015 09:06 AM QUIT TOBACCO USE > 7 YEARS AGO quit in 1991 [place] [facility] [place] [facility] Mar 21, 2005 10:12 AM HISTORY OF SMOKING [facility] [place] [facility] Mar 21, 2005 10:12 AM QUIT TOBACCO USE > 7 YEARS AGO [facility] Advance Directives: All historical and current [...] DIRECTIVE CESAR LUA [facility] Encounter Notes: All associated encounter notes This section contains the clinical notes associated to the Encounter. Date/Time Encounter Note(s) Provider Source Feb 27, 2024 03:22 PM CARE COORDINATION HOME TELEHEALTH REPORT: LOCAL TITLE: HT PERIODIC EVALUATION NOTE STANDARD TITLE: CARE COORDINATION HOME TELEHEALTH REPORT DATE OF NOTE: FEB 27, 2024@15:22 ENTRY DATE: FEB 27, 2024@15:22:47 AUTHOR: TOÑO LORD EXP COSIGNER: URGENCY: STATUS: COMPLETED HOME TELEHEALTH (HT) PERIODIC EVALUATION NOTE Provider: This information is sent for your review and any further recommendations in regards to the HT Plan of Care. Ht (Home Telehealth) 08/07/2022 Ht Enrollment-Start Date 08/07/2022 Ht Clinical Reason For Enrollment DM,HTN 'S CURRENT HT CATEGORY OF CARE: Non-Institutional Shelter Monitoring technology assigned: In Home Messaging Device (IHMD) Vendor: Tapatalk Connection via: Cellular modem Peripheral Device(s): Blood pressure Monitor with pulse Entry: Bluetooth Digital Scale Entry: Bluetooth currently requests to suspend weight checks due to difficulty with stepping onto scale d/t bilateral knee replacemnts/pain Non-pharmacy provided Blood Glucose Meter Entry: Cabled SUMMARY SINCE LAST REVIEW: reports that he would like to continue with the RPM-HT program and feels that it is helping him control his diet, decreasing sodium and overall health through monitoring/oversite. has had bilateral knee replacements since last review. [place] reports that he is stil having pain and difficulty with lifting his left leg. [place] currently working with PT. [place] requested to suspend weight checks until he is able to safely stand on to the scale. [place] reports increased difficulty sleeping at night d/t increased left knee pain. [place] reports that he reviewed this with his surgeon who told him this is normal and will improve. [place]y reprots that he knows that is true since he initially experienced the same sharp pain after his right knee was replaced and since this has gone away. [place] continues to utilize a cane/walker. [place] denies any changes in condition/medications at this time. [place] denies infections. [place] reports that he fell about 2 months ago and has some right shoudler pain. [place]y has an appointmetn with his pcp 03/05/24 and plans to address furhter with provider. HEALTH STATUS and REVIEW OF SYSTEMS: Active problems - Computerized Problem List is the source for the followin. Exposure to potentially hazardous substance ([facility] [id number]) 2. Knee pain 3. Diabetes mellitus type 2 4. 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 Cancer screening follow up 6. Anxiety 7. Eating disorder 8. Obstructive sleep apnea syndrome 9. Arteriosclerotic heart disease 10. Obesity (SNOMED CT 659150954) 11. Hyperlipidemia (SNOMED CT 38059663) 12. Benign essential hypertension (SNOMED CT 1961377) 13. Venous InsufficiencyREVIEW OF SYSTEMS Constitutional: Denies: Fever, Chills, Rigors, Sweats, Malaise, Anorexia, Weight change Reports: Ears, nose, mouth, throat: Denies: Ear pain, Sinus pain, Sinus congestion, Sinus drainage, Post nasal drip, Throat pain, Difficulty swallowing, Hoarseness, Trismus, Tooth pain Reports: Hearing change, Tinnitus Comments: [place] Eyes: Denies: Vision loss, Diplopia, Photophobia, Discharge, [...] the on Oxygen? No PROGRESS TOWARDS GOAL(S): [place] utilizes the program >70% of the time. is looking forward to managing his pain and increasing his mobility since bilateral knee replacement. states he has not been able to successfully lose weight due to decreased mobility. UPDATE OF GOALS AND CARE COORDINATION INTERVENTION PLAN: Goals in effect for next 180 days:[place] to learn self management of Weight/HTN/DM with completing Health checks 5-7 times per week to continue with low sodium/consistant carb diet. Sodium intake <1500 mg/day. Make healthy meal/snack choices. [place] to maintain adequate hydration to monitor carbohydrates and maintain 45 gms carb at each meal and 15 gm per snack [place] will call for all emergencies will contact Pact or HT CC with non urgent questions/concerns Active prescriptions : Active Outpatient Medications (including Supplies): Active Outpatient Medications Status 1) ACCU-CHEK GUIDE (GLUCOSE) TEST STRIP USE 1 STRIP TO ACTIVE TEST BLOOD SUGARS THREE TIMES A DAY FOR SENSOR FAILURE 2) ATORVASTATIN CALCIUM 80MG TAB TAKE ONE TABLET BY ACTIVE MOUTH ONCE DAILY FOR CHOLESTEROL 3) FENOFIBRATE 145MG TAB TAKE ONE TABLET BY MOUTH ONCE ACTIVE DAILY FOR HIGH CHOLESTEROL 4) FISH OIL 1000MG (500MG DHA/EPA) CAP TAKE TWO CAPSULES HOLD BY MOUTH TWICE DAILY 5) GLUCOSE SENSOR FREESTYLE VARUN 3 USE 1 SENSOR ACTIVE DIRECTED EVERY 14 DAYS 6) HYDROCHLOROTHIAZIDE 25MG TAB TAKE ONE TABLET BY MOUTH ACTIVE (S) ONCE DAILY FOR HIGH BLOOD PRESSURE 7) INSULIN CONC REG HUM 500 UNT/ML KWIKPEN INJECT ACTIVE DIRECTED SUBCUTANEOUSLY THREE TIMES A DAY 80 UNITS MORNING, 60 UNITS NOON, AND 65 UNITS EVENING 8) METFORMIN HCL 500MG TAB TAKE ONE TABLET BY MOUTH ACTIVE TWICE DAILY FOR DIABETES 9) METOPROLOL SUCCINATE 25MG SA TAB TAKE ONE TABLET BY ACTIVE MOUTH ONCE DAILY FOR HIGH BLOOD PRESSURE 10) SEMAGLUTIDE 1MG/0.75ML INJ PEN 3ML INJECT 1MG ACTIVE SUBCUTANEOUSLY ONCE A WEEK 11) SPIRONOLACTONE 25MG TAB TAKE ONE TABLET BY MOUTH ONCE ACTIVE DAILY 12) VALSARTAN 320MG TAB TAKE ONE TABLET BY MOUTH ONCE ACTIVE DAILY FOR HIGH BLOOD PRESSURE Active Non-VA Medications Status 1) Non-VA AMLODIPINE BESYLATE 5MG TAB 5MG BY MOUTH ONCE ACTIVE DAILY 2) Non-VA ASPIRIN 81MG EC TAB 81MG BY MOUTH ONCE DAILY ACTIVE 14 Total Medications The [place] gets prescriptions from outside providers. Prescriptions are processed only at the [place] pharmacy. Is the taking other medications including over the counter medications? Yes These medications are listed in the Non-VA medications list in CPRS. /caregiver has a current list of active medications. The [place] and/or caregiver does not have questions about medications. MEDICATION INTERVENTIONS: Reviewed current list of medications, educated as needed HEALTH EDUCATION Education provided: Disease management/self-help Level of Understanding: Fair In-home monitoring Level of Understanding: Good Response to instruction: [place] verbalizes understanding (states essential concepts) Plan/Education follow-up: [...] with accessing resources. Disaster Plan discussed with [place]/Caregiver reports he has adequate food/water and medications for 2-3 weeks if needed TYPE OF ENCOUNTER: Telephone Length of call: 46-60 minutes /skinny/ TOÑO LORD RN RPM-Home Telehealth Entry Specialists Signed: 02/28/2024 17:37 Receipt Acknowledged By: 03/03/2024 08:07 /skinny/ Stacey Aggarawl DNP, STAPLE SIDE LASTER-BC, CNL Primary Care Nurse Practitioner TOÑO LORD [facility] Feb 27, 2024 03:14 PM CARE COORDINATION HOME TELEHEALTH E & M NOTE: LOCAL TITLE: CONTINUUM OF CARE NOTE STANDARD TITLE: CARE COORDINATION HOME TELEHEALTH E & M NOTE DATE OF NOTE: FEB 27, 2024@15:14 ENTRY DATE: FEB 27, 2024@15:14:54 AUTHOR: TOÑO LORD EXP COSIGNER: URGENCY: STATUS: COMPLETED HOME TELEHEALTH CONTINUUM OF CARE - Follow-up assessment 'S LIVING SITUATION: [place] lives with: Step daughter and adopted grandson [place] lives in a private home or apartment. PRIMARY (UNPAID) CAREGIVER INFORMATION: No unpaid caregiver: there is no one on whom the relies on for any type of support. BASIC ACTIVITIES OF DAILY LIVING: In the last 7 days, has the required help or supervision with the following activities? Bathing (tub bath, shower, or sponge) - No Dressing (lower and upper body) - No Eating (taking food by any method, including tube feedings) - No Using the toilet (or urinal/bedpan, cleaning self) - No Moving around in bed (turning, to/from sitting, repositioning) - No Transfers (from bed, chair, wheelchair) - Yes cane/walker Moving around indoors (even with cane, walker, or scooter) - Yes cane/walker INSTRUMENTAL ACTIVITES OF DAILY LIVING: In the last 7 days, has the [place] expressed difficulty with the following activities? Preparing meals (planning, cooking, setting out food/utensils) - Yes [place]'s meals were prepared by others. Neighbor upstairs makes some meals Performing housework - Yes Shopping (selecting items, [...] absence of continued HT services) has the [place] been unable to make himself/herself understood? No In the last 90 days, has the [place] become so agitated or disoriented that his/her safety was endangered or he/she required protection by others as a result? No PROGNOSIS: The has had a recent change (2-3 months) in his/her level of function. ilateral knee replacements The has not experienced a flare-up of a recurrent or chronic health problem in the last 7 days. The direct care staff does NOT think the [place] is capable of increased independence in ADLs, IADLs and/or mobility. The does NOT have a limited life expectancy of 6-12 months. NON-INSTITUTIONAL CARE/CHRONIC CARE MANAGEMENT SCORING SUMMARY: [place] meets LAVON Criteria. [place] meets Category A LAVON criteria. has one or more behaviors and/or cognitive problems (Sections E and F). The complexity of 's care needs is greater than Home Telehealth services alone can provide. Pact, [facility] Care-optometry/podiatry Referral is not recommended. Services already in place? Yes TYPE OF ENCOUNTER: Telephone Length of call: 5-10 minutes /skinny/ TOÑO LORD RN RPM-Home Telehealth Entry Specialists Signed: 02/28/2024 17:38 [facility]
--- OUTSIDE RECORDS SUMMARY | 2024-05-29 10:34 | XMS_ITS | Encounter Summary ---
Author Name [facility] [place] Address [address] [place] [address] Care Team Providers Care Out Of Town Collection Clerk Name Role Phone STACEY HORTON Primary [...] STAND YON SELF May 29, [phone] [id number] [phone] Abdullahi SEVERINO PATIENT MEDICARE (WNR) MEDICARE (M) PART B Jul 18, 2012 PART B [id number] Abdullahi SEVERINO PATIENT MEDICARE (WNR) MEDICARE (M) PART B Jul 18, 2012 PART B [id number] Abdullahi SEVERINO PATIENT MEDICARE (WNR) MEDICARE (M) PART B Jul 18, 2012 PART B [id number] Abdullahi SEVERINO PATIENT MEDICARE (WNR) MEDICARE (M) PART A Dec 19, 2011 PART A [id number] Abdullahi SEVERINO PATIENT MEDICARE (WNR) MEDICARE (M) PART A Dec 19, 2011 PART A [id number] Abdullahi SEVERINO PATIENT MEDICARE (WNR) MEDICARE (M) PART A Dec 19, 2011 PART A [id number] [phone] Abdullahi SEVERINO PATIENT Selected Encounter This section includes the information on record at [place] for the Encounter. Date/Time Encounter Type Encounter Description Reason Pro vider Source Jan 10, 2024 12:00 AM Outpatient Encounter COMMUNITY CARE [...] - MEDICINE [place] [facility] [place] [facility] Feb 17, 2024 11:00 AM AMBULATORY - MEDICINE [place] [facility] [place] [facility] Mar 05, 2024 01:30 PM AMBULATORY - MEDICINE [place] [facility] [place] [facility] Mar 25, 2024 01:00 PM [facility] Apr 06, 2024 10:00 AM AMBULATORY - MEDICINE [place] [facility] [place] [facility] Apr 23, 2024 10:45 AM AMBULATORY - NONE [place] [facility] [place] [facility] Apr 29, 2024 10:00 AM AMBULATORY - MEDICINE [place] [facility] [place] [facility] Jun 01, 2024 11:30 AM AMBULATORY - MEDICINE [place] [facility] [place] [facility] Active, Pending, and Scheduled Orders This [...] PM Consult Order COMMUNITY CARE-PHYSICAL THERAPY Cons Field Laboratory Operator's Choice [facility] Lab Results: +/- 30 days [...] Range Comment Dec 25, 2023 01:56 PM ARTESIAN GLUCOSE, Fingerstick Specimen Type: BLOOD Comment: For GLU FinTest performed by: Crys Slade For GLU Fin Meter #: [id number] Ordering Provider: IBRAHIMA SLADE Report Released Date/Time: Dec 25, 2023 03:45 PM Reporting Lab: [address] [address] Performing Lab: [address] [address] GLUCOSE, Fingerstick 143 mg/dL H 65-100 Social [...] 05, 2023 11:30 AM VA-TOBACCO FORMER USER [facility] Tobacco Use History This section includes a history of the smoking, or tobacco-related health factors, that were collected on or before the date of the Encounter. The data comes from the [place] facility where the Encounter took place. Date/Time Smoking Status/Tobac co Use Comment [facility] Apr 05, 2023 11:30 AM [place]-TOBACCO QUIT 15 YRS OR MORE [facility] Dec 28, 2021 09:30 AM [facility] Dec 28, 2021 09:30 AM CA-TOBACCO QUIT 15 YRS OR MORE [facility] [place] [facility] Dec 02, 2020 09:00 AM VA-TOBACCO FORMER USER [place] [facility] [place] [facility] Dec 02, 2020 09:00 AM VA-TOBACCO QUIT 15 YRS OR MORE [place] [facility] [place] [facility] Aug 18, 2019 03:19 PM VA-TOBACCO FORMER USER [place] [facility] [place] [facility] Aug 18, 2019 03:19 PM VA-TOBACCO QUIT 15 YRS OR MORE [place] [facility] [place] [facility] September 23, 2018 09:58 AM VA-TOBACCO FORMER USER [place] [facility] [place] [facility] September 23, 2018 09:58 AM VA-TOBACCO QUIT 15 YRS OR MORE [place] [facility] [place] [facility] September 30, 2017 09:20 AM QUIT TOBACCO USE > 7 YEARS AGO [place] [facility] [place] [facility] Aug 20, 2016 09:17 AM QUIT TOBACCO USE > 7 YEARS AGO quit 1991 [place] [facility] [place] [facility] Jun 27, 2016 09:45 AM CURRENT SMOKER Quit 25 years ago [facility] [place] [facility] Apr 18, 2015 09:06 AM QUIT TOBACCO USE > 7 YEARS AGO quit in 1991 [place] [facility] [place] [facility] Mar 21, 2005 10:12 AM HISTORY OF SMOKING [place] [facility] [place] [facility] Mar 21, 2005 10:12 AM QUIT TOBACCO USE > 7 YE[facility] A[facility] [place] [facility] Advance Directives: All historical and current [...] DIRECTIVE CESAR LUA [place] [facility] Encounter Notes: All associated encounter notes This section contains the clinical notes associated to the Encounter. Date/Time Encounter Note(s) Provider Source Jan 10, 2024 12:00 AM NONVA CONSULT: LOCAL TITLE: COMMUNITY CARE-CONSULT RESULT NOTE STANDARD TITLE: NONVA CONSULT DATE OF NOTE: JAN 10, 2024 ENTRY DATE: MAY 05, 2024@13:45:58 AUTHOR: STEVE VOGEL EXP COSIGNER: URGENCY: STATUS: COMPLETED VistA Imaging - Scanned Document SCANNED DOCUMENT SIGNATURE NOT REQUIRED Electronically Filed: 05/05/2024 by: STEVE LLANOS CN[facility]
--- OUTSIDE RECORDS SUMMARY | 2024-05-29 10:34 | XMS_ITS ---
ME MED NUTRITION INDIV SUBSEQ [place] [facility] [place] [facility] Encounter Summary Created on: May 06, 2024 CARL SEVERINO : 1945 Sex: Male Author Name [facility] [place] [facility] [place] Address [address] [place] [address] Care Team Providers Care Water Filterer Name Role Phone STACEY HORTON Primary [facility] Provider [facility] Insurance Providers: All historical and current [...] STAND YON SELF May 29, [phone] [id number] Abdullahi SEVERINO PATIENT MEDICARE (WNR) MEDICARE (M) PART B Jul 18, 2012 PART B [id number] [phone] Abdullahi SEVERINO PATIENT MEDICARE (WNR) MEDICARE (M) PART B Jul 18, 2012 PART B [id number] Abdullahi SEVERINO PATIENT MEDICARE (WNR) MEDICARE (M) PART B Jul 18, 2012 PART B [id number] [phone] Abdullahi SEVERINO PATIENT MEDICARE (WNR) MEDICARE (M) PART A Dec 19, 2011 PART A [id number] Abdullahi SEVERINO PATIENT MEDICARE (WNR) MEDICARE (M) PART A Dec 19, 2011 PART A [id number] Abdullahi SEVERINO PATIENT MEDICARE (WNR) MEDICARE (M) PART A Dec 19, 2011 PART A [id number] [phone] Abdullahi SEVERINO PATIENT Selected Encounter This section includes the information on record at [place] for the Encounter. Date/Time Encounter Type Encounter Description Reason Provider Source Apr 23, 2024 10:45 AM MED NUTRITION INDIV SUBSEQ NUTRITION/DIETETI CS-INDIVIDUAL ICD-10-CM E11.9 Type 2 diabetes mellitus without complications RANDELL TURNER Afshin Encounter Template Text not used by ME Assessments - Encounter Diagnoses This section includes the primary and secondary diagnoses documented for the Encounter. Date/Time Primary/Secondary Diagnosis Diagnosis Name Provider Source Apr 24, 2024 10:44 AM PRIMARY Type 2 diabetes mellitus without complications [facility]LL TURNER [facility] Apr 24, 2024 10:44 AM SECONDARY Dietary counseling and surveillance RANDELL TURNER [facility] Plan of Treatment: Future Appointments (+ 6 months) and Future Tests (+/- 45 days) The Plan of Treatment section includes future care activities for the patient from all [place] treatmentfacilities. This section includes future appointments and future orders which are active, pending or scheduled. Future Appointments This section includes appointments that were scheduled to occur 6 months from the date of the Encounter, up to a maximum of 20 appointments. The data comes from all [place] treatment facilities. Appointment Date/Time Appointment Type Appointme nt Facility Name Apr 29, 2024 10:00 AM AMBULATORY - [facility]INE [facility] Jun 01, 2024 11:30 AM AMBULATORY - MEDICINE [facility] [place] [facility] Sep 10, 2024 10:00 AM AMBULATORY - NONE [facility] Active, Pending, and Scheduled Orders This section includes a listing of several types of active, pending, and scheduled orders, including clinic medications orders, diagnostic test orders, procedure orders and consult orders; where the start date of the order is 45 days before the date of the Encounter or 45 days after the date of theEncounter. The data comes from all [place] treatment facilities. Test Date/Time Test Type Test Details Facility Name Apr 29, 2024 10:07 AM Consult Order COMMUNITY CARE-MRI Cons Ophthalmic Photographer's Choice [facility] Jun 02, 2024 12:00 AM Laboratory - Chemistry Order HEMOGLOBIN A1C PANEL BLOOD (LAV-BLOOD) SP [facility] Jun 02, 2024 12:00 AM Laboratory - Chemistry Order BASIC METABOLIC PANEL (non-fasting) BLOOD (SST-SERUM) [facility] Vital Signs: All taken on the encounter date This section contains inpatient and outpatient Vital Signs collected on the date of the Encounter. Date/Time Temperature Pulse Blood Pressure Respiratory Rate SP02 Pain Height Weight Body Mass Index Source Apr 23, 2024 12:01 PM 228.2 32 [facility] Social History: Smoking Status (Most current) and Tobacco Use (All prior to encounter date) This section includes the most current, and the historical, smoking and tobacco- related health factors from the [place] facility where the Encounter took place. Current Smoking Status This section includes the most current smoking, or tobacco-related health factor, from the [place] facility where the Encounter took place. Date/Time Current Smoking Status Comment Therese duffy Apr 06, 2024 10:00 AM ME-TOBACCO FORMER USER [facility] Tobacco Use History This section includes a history of the smoking, or tobacco-related health factors, that were collected on or before the date of the Encounter. The data comes from the [place] facility where the Encounter took place. Date/Time Smoking Status/Tobac co Use Comment Facility Apr 06, 2024 10:00 AM ME-TOBACCO QUIT 15 YRS OR MORE [facility] Apr 05, 2023 11:30 AM VA-TOBACCO FOR[facility] USER [facility] Apr 05, 2023 11:30 AM VA-TOBACCO QUIT 15 YRS OR MORE [facility] Dec 28, 2021 09:30 AM VA-TOBACCO [facility] Dec 28, 2021 09:30 AM VA-TOBACCO QUIT 15 YRS OR MORE [place] [facility] [place] [facility] Dec 02, 2020 09:00 AM VA-TOBACCO FORMER USER [place] [facility] [place] [facility] Dec 02, 2020 09:00 AM VA-TOBACCO QUIT 15 YRS OR MORE [place] [facility] [place] [facility] Aug 18, 2019 03:19 PM VA-TOBACCO FORMER USER [place] [facility] [place] [facility] Aug 18, 2019 03:19 PM VA-TOBACCO QUIT 15 YRS OR MORE [place] [facility] [place] [facility] September 23, 2018 09:58 AM VA-TOBACCO FORMER USER [place] [facility] [place] [facility] September 23, 2018 09:58 AM VA-TOBACCO QUIT 15 YRS OR MORE [place] [facility] [place] [facility] September 30, 2017 09:20 AM QUIT TOBACCO USE > 7 YEARS AGO [place] [facility] [facility] Aug 20, 2016 09:17 AM QUIT TOBACCO USE > 7 YEARS AGO [facility] Jun 27, 2016 09:45 AM CURRENT SMOKER Quit 25 years ago [facility] [place] [facility] Apr 18, 2015 09:06 AM QUIT TOBACCO USE > 7 YEARS AGO quit [facility] [place] [facility] Mar 21, 2005 10:12 AM HISTORY OF SMOKING [facility] Mar 21, 2005 10:12 AM QUIT TOBACCO USE > 7 YEARS AGO [facility] Advance Directives: All historical and current Section Date Range: From patient's date of to the date document was created. This section includes ALL of a patient's completed or amended [place] Advance and Rescinded Directives. The entries below indicate that a directive exists for the patient, but an actual copy is not included with this document. The data comes from all [place] facilities. Date Advance Directives Provider Source Feb 04, 2019 ADVANCE DIRECTIVE CESAR LUA [facility] Encounter Notes: All associated encounter notes This section contains the clinical notes associated to the Encounter. Date/Time Encounter Note(s) Provider Source Apr 23, 2024 10:45 AM NUTRITION DIETETICS NOTE: LOCAL TITLE: NUTRITION PROGRESS NOTE STANDARD TITLE: NUTRITION DIETETICS NOTE DATE OF NOTE: APR 23, 2024@10:45 ENTRY DATE: APR 24, 2024@09:47:54 AUTHOR: AIDAN TURNER COSIGNER: URGENCY: STATUS: COMPLETED NUTRITION ASSESSMENT Reason for Nutrition referral: Diabetes Mellitus Primary Diagnosis: Type 2 DM without complication (E11.9) Secondary Diagnosis: Dietary Surveillance and Counseling (Z71.3) Additional Secondary Diagnosis: Date of Nutrition Referral: 12/26/23 Referred to Nutrition Clinic By: Dr. Ayoub Date of Nutrition Visit: Apr Visit #: 2 Time Spent with Patient: 40 minutes Patient identified using the following two forms of ID: Date of , Patient Full Name NUTRITION ASSESSMENT: Client History Food/Drug Interactions: Amlodipine/Grapefruit, Atorvastatin/Grapefruit, HCTZ/Potassium, Insulin/Potential for hypoglycemia, Spironolactone/KCl salt substitute, Valsartan/KCl salt substitute Educated patient on food-drug nteractions at 12/26/23 visit. Valsartan deferred today to next visit. Patient already aware to avoid KCL salt substitute Anthropometric Measurements: ==== Ht:71 in [180.3 cm] (04/06/2024 09:39) Wt:228.2 lb [103.51 kg] (04/23/2024 12:01) Weight History: 228 = 12/26/23 221 = 12/05/23 244 = 10/04/23 246 = 09/04/23 BMI: 31.9 IBW:172 +/-10% Biochemical Data/Medical Tests: ======= Labs: HEMOGLOBIN A1C; BLOOD Ari. Date: 02/21/24 08:31 12/05/23 10:58 Test Name Result Units Range HEMOGLOBIN A1C 6.0 H 6.0 H % 4.0 - 5.6 Nutrition Focused Physical Findings: N/A Nutrition-Focused Physical Exam ======= Signs of Obesity Body habitus: Android Obesity Nutrition-Focused Physical Exam Summary: Based on the ASPEN/AND Malnutrition Diagnosis Guide, it was determined that the DOES NOT have malnutrition. Nutrition History: Food/Nutrition Related History: Progress since last visit: Swapped cornflakes and rice krispies for cheerios, oatmeal, or shredded wheat. Forgot to include protein at breakfast. Not really managing cabohydrate servings by selecting 3-4 carb servings at meals. Having 4oz protein at dinner but not at lunch. Drinking 2(8oz) cups milk daily. In the past 3 months, did you ever run out of food and you were not able to access more food or have the money to buy more food? No Physical Activity: Limited due to knee surgery, tries to walk a little. Other subjective information: Reports his insulin dose was adjusted due to some lower Blood sugars. Has CGM which notifies him. NUTRITION DIAGNOSIS = Nutrition Problem: ACTIVE Inconsistent Carbohydrate Intake related to Physiological causes requiring careful timing and consistency in the amount of carbohydrates(e.g.,diabe ana maría mellitus, hypoglycemia)as evidenced by estimated carbohydrate intake that is different from recommended types or ingested on an irregular basis. INTERVENTION Update on Interventions Discussed at Previous Visit: Swap low fiber cereals for ones with increased fiber. DId not include protein at breakfast and intake at lunch is not always the 4oz discussed. Not managing carb intake by selecting 3 -4 carbohydrate servings though he does verbalize goal of 45g carbohydrate per per meal. Drinking 2 glasses of milk versus 3 glasses discussed. NUTRITION COUNSELING Nutrition counseling based on motivational interviewing strategy , Nutrition counseling based on goal setting strategy NUTRITION EDUCATION Content related to nutrition education, Education on nutrition's influence on health Nutrition Education provided on the following topics: Sources of Carbohydrates, Food/Drug interactions reviewed Educated at 12/26/23 visit Printed Nutrition educational materials provided during this encounter: Diabetes Meal Planning: Plan Your Plate Education Narrative: Explored options to help with Diabetes Management and adequate protein intake given semaglutide. Discussed importance of moderate and consistent carbohydrate intake throughout the day with adequate cabohydrate intake to avoid low blood sugar. Reviewed carbohydrate sources and servings and aiming for 3-4 carbohydrate servings(45-60g carbohydrate) at each meal. Reviewed Diabetes Meal Plate model and how if he fills his plate following the model, he can also achieve the 3-4 carbohydrate servings. Provided 2nd copy of Diabetes Meal plate handout per patient request. Reviewed importance of good protein intake while on Semaglutide. Reinforced portion at lunch & dinner and inclusion of milk. Discussed evening snack and inclusion of small amount of protein (1oz lean meat or low fat cheese) with his carbohydrate serving to help avoid low blood glucose at night. ALso discussed option of some plain kazakh yogurt & fruit. Barriers to Education: None Comprehension: Good Motivation: Good COORDINATION OF NUTRITION CARE Follow-up with: Disintegrator, Global Professional, PCP MONITORING Patient SMART goals from previous visit: 1. Swap cornflakes and rice krispies for fiber containing cereal e.g. cheerios -Goal achieved 2. Include protein source with breakfast e.g 1 egg or small handful of nuts -Goal not achieved 3. Practice choosing 3-4 carbohydrate servings each meal-Goal not achieved 4. Include 4oz protein with lunch and 4oz with dinner and 24oz milk daily-Some progress towards goal New Patient SMART Goals: 1. Include protein source at breakfast 2. Include 3oz protein with lunch 3. Include 8oz milk with lunch and dinner meals 4. Follow Healthy plate model for meals to help achieve 3-4 carbohydrate servings 5. Add protein to evening snack e.g. 1oz lean meat or low fat cheese in addition to 1 carb serving FOLLOW-UP PLAN 1. Follow-up visit: Aug 2. Monitor progress towards achievement of patient's SMART goals 3. Assess comprehension and motivation based on dietary changes made 4. Monitor progress toward achievement of Clinical Outcome Goals: Weight, Labs 5. NEXT VISIT: Discuss weight management and Review Food & drug interactions for Valsartan CLINICAL OUTCOME GOALS: Indicator A1c: Criteria: Type II DM Goal: A1c 7.5% per Endocrine target by follow-up Progress: Met, most recent A1C 6%, continue goal Indicator: Weight Criteria: Obese per BMI Goal: Weight loss of 1-2/#/week toward IBW by follow-up Progress:Unmet, weight stable, continue goal [facility] [place], ASPIRATION, PURPOSE, VALUES, AND SHARED GOALS Shared Goal(s): see patient goals above (Focus area honoring MAP & Team priorities) /skinny/ AIDAN TURNER RD,LDN STAFF DIETITIAN Signed: 04/24/2024 10:45 AIDAN TURNER [facility]
--- OUTSIDE RECORDS SUMMARY | 2024-05-29 10:34 | XMS_ITS ---
Author Name [facility] [place] Address [address] [place] [address] Care Team Providers Care Regulatory Compliance Officer Name Role Phone LUIS AGGARWAL Primary Care [...] STAND YON SELF May 29, [phone] [id number] [phone] Abdullahi SEVERINO PATIENT MEDICARE (WNR) MEDICARE (M) PART B Jul 18, 2012 PART B [id number] [phone] Abdullahi SEVERINO PATIENT MEDICARE (WNR) MEDICARE (M) PART B Jul 18, 2012 PART B [id number] [phone] Abdullahi SEVERINO PATIENT MEDICARE (WNR) MEDICARE (M) PART B Jul 18, 2012 PART B [id number] Abdullahi SEVERINO PATIENT MEDICARE (WNR) MEDICARE (M) PART A Dec 19, 2011 PART A [id number] Abdullahi SEVERINO PATIENT MEDICARE (WNR) MEDICARE (M) PART A Dec 19, 2011 PART A [id number] [phone] Abdullahi SEVERINO PATIENT MEDICARE (WNR) MEDICARE (M) PART A Dec 19, 2011 PART A [id number] [phone] Abdullahi SEVERINO PATIENT Selected Encounter This section includes the information on record at [place] for the Encounter. Date/Time Encounter Type Encounter Description Reason Pro vider Source Apr 27, 2024 01:09 PM Outpatient Encounter TELEPHONE PRIMARY CARE IHE [...] 20 appointments. The data comes from all [facility]. Appointment Date/Time Appointment Type Appointme nt Facility Name Apr 29, 2024 10:00 AM AMBULATORY - MEDICINE [facility] Jun 01, 2024 11:30 AM AMBULATORY - MEDICINE [facility] Sep 10, 2024 10:00 AM AMBULATORY - NONE [facility] Active, Pending, and Scheduled Orders This [...] 10:07 AM Consult Order COMMUNITY CARE-MRI Cons Bone Process Operator's Choice [facility] Jun 02, 2024 12:00 AM Laboratory - Chemistry Order BASIC METABOLIC PANEL (non-fasting) BLOOD (SST-SERUM) SP [facility] Jun 02, 2024 12:00 AM Laboratory - Chemistry Order HEMOGLOBIN A1C PANEL BLOOD (LAV-BLOOD) SP [place] [facility] [place] [facility] Social History: Smoking Status (Most [...] took place. Date/Time Current Smoking Status Comment [facility] Apr 06, 2024 10:00 AM VA-TOBACCO FORMER USER [place] [facility] [place] [facility] Tobacco Use History This section includes a history of the smoking, or tobacco-related health factors, that were collected on or before the date of the Encounter. The data comes from the [place] facility where the Encounter took place. Date/Time Smoking Status/Tobac co Use Comment Facility Apr 06, 2024 10:00 AM VA-TOBACCO QUIT 15 YRS OR MORE [place] [facility] [place] [facility] Apr 05, 2023 11:30 AM VA-TOBACCO FORMER USER [place] [facility] [place] [facility] Apr 05, 2023 11:30 AM VA-TOBACCO QUIT 15 YRS OR MORE [place] [facility] [place] [facility] Dec 28, 2021 09:30 AM VA-TOBACCO FORMER USER [place] [facility] [place] [facility] Dec 28, 2021 09:30 AM VA-TOBACCO QUIT 15 YRS OR MORE [place] [facility] [place] [facility] Dec 02, 2020 09:00 AM VA-TOBACCO FORMER USER [place] [facility] [place] [facility] Dec 02, 2020 09:00 AM VA-TOBACCO QUIT 15 YRS OR MORE [place] [facility] [place] [facility] Aug 18, 2019 03:19 PM VA-TOBACCO FORMER USER [place] [facility] [place] [facility] Aug 18, 2019 03:19 PM VA-TOBACCO QUIT 15 YRS OR MORE [place] [facility] [place] [facility] September 23, 2018 09:58 AM VA-TOBACCO FORMER USER [place] [facility] [place] [facility] September 23, 2018 09:58 AM VA-TOBACCO QUIT 15 YRS OR MORE [place] [facility] [place] [facility] September 30, 2017 09:20 AM QUIT TOBACCO USE > 7 YEARS AGO [place] [facility] [facility] Aug 20, 2016 09:17 AM QUIT TOBACCO USE > 7 YEARS AGO [facility] Jun 27, 2016 09:45 AM CURRENT SMOKER Quit 25 years ago [facility] Apr 18, 2015 09:06 AM QUIT TOBACCO USE > 7 YEARS AGO quit in 1991 [facility] Mar 21, 2005 10:12 AM HISTORY OF SMOKING [facility] Mar 21, 2005 10:12 AM QUIT TOBACCO USE > 7 YEARS AGO [facility] Advance Directives: All historical and [...] CESAR LUA [facility] Encounter Notes: All associated encounter notes This section contains the clinical notes associated to the Encounter. Date/Time Encounter Note(s) Provider Source Apr 27, 2024 01:09 PM CARE COORDINATION HOME TELEHEALTH NOTE: LOCAL TITLE: NOTE STANDARD TITLE: CARE COORDINATION HOME TELEHEALTH NOTE DATE OF NOTE: APR 27, 2024@13:09 ENTRY DATE: APR 27, 2024@13:09:19 AUTHOR: TOÑO LORD EXP COSIGNER: URGENCY: STATUS: COMPLETED CARL SEVERINO (-[id number]) Vital Sign for: 03/29/2024 - 04/27/2024 (All times are EST; All weights are lbs) Primary DMP: VHA-Wt Mgmt Comorbid(s): DM/HTN Summary Weight Sys BP Krishnamurthy BP HR Glu Pain High 158 105 98 257 Low 112 55 54 70 Average 132 70 65 133 Date Time Wt Time Sys Krishnamurthy HR Time Glu Time Pain 04/26/2024 16:06 142/64 77 16:00 129 04/25/2024 18:54 158/69 68 18:44 90 04/24/2024 16:47 132/65 63 16:40 103 04/23/2024 21:28 124/66 74 21:11 185 04/22/2024 19:45 146/64 62 19:34 170 04/21/2024 14:55 137/70 61 - 04/21/2024 - - - 14:42 257 04/20/2024 07:53 157/73 55 07:39 90 04/18/2024 10:22 129/63 61 10:04 119 04/17/2024 21:38 127/55 66 21:29 138 04/16/2024 12:29 125/105 57 12:19 149 04/15/2024 19:20 128/63 64 19:12 121 04/14/2024 20:45 125/70 59 20:34 135 04/14/2024 17:28 133/61 62 17:10 70 04/13/2024 01:42 131/69 54 01:27 118 04/12/2024 08:11 141/69 65 07:52 134 04/11/2024 19:57 128/98 98 19:50 170 04/10/2024 16:45 120/99 55 16:30 100 04/09/2024 - 04:40 112/74 61 04:27 145 04/08/2024 - 19:37 113/63 59 19:30 95 04/07/2024 - 19:53 125/68 64 19:42 141 04/05/2024 - 07:53 143/69 84 07:43 137 04/04/2024 - 11:58 138/74 62 11:48 144 04/03/2024 - 16:25 157/69 61 16:15 136 04/03/2024 - 11:15 149/70 62 11:05 111 04/02/2024 - 22:25 116/61 62 22:18 158 04/01/2024 - 19:07 132/70 65 19:06 128 03/31/2024 - 12:13 132/62 69 11:12 100 03/30/2024 - 22:34 113/60 74 22:19 133 03/29/2024 - 17:51 124/64 72 17:40 150 Source: [facility] [employer]; [employer] System Note prepared for PCP review. [place] has a primary care appointment on 04/29/24. /skinny/ TOÑO LORD RN [facility]-Home Telehealth [place] Technician Signed: 04/27/2024 13:11 Receipt Acknowledged By: 04/28/2024 07: /skinny/ Luis Aggarwal DNP, MARKET PRESIDENT-BC, CNL Primary Care Nurse Practitioner TOÑO LORD CNTRL [facility]
--- OUTSIDE RECORDS SUMMARY | 2024-05-29 10:34 | XMS_ITS | Encounter Summary ---
Author Name [facility] [place] Address [address] [place] [address] Care Team Providers Care Chemist Biological Name Role Phone STACEY HORTON Primary Care [...] STAND YON SELF May 29, [phone] [id number] [phone] Abdullahi SEVERINO PATIENT MEDICARE (WNR) MEDICARE (M) PART B Jul 18, 2012 PART B [id number] [phone] Abdullahi SEVERINO PATIENT MEDICARE (WNR) MEDICARE (M) PART B Jul 18, 2012 PART B [id number] Abdullahi SEVERINO PATIENT MEDICARE (WNR) MEDICARE (M) PART B Jul 18, 2012 PART B [id number] [phone] Abdullahi SEVERINO PATIENT MEDICARE (WNR) MEDICARE (M) PART A Dec 19, 2011 PART A [id number] Abdullahi SEVERINO PATIENT MEDICARE (WNR) MEDICARE (M) PART A Dec 19, 2011 PART A [id number] Abdullahi SEVERINO PATIENT MEDICARE (WNR) MEDICARE (M) PART A Dec 19, 2011 PART A [id number] Abdullahi SEVERINO PATIENT Selected Encounter This section includes the information on record at [place] for the Encounter. Date/Time Encounter Type Encounter Description Reason Pro vider Source Apr 06, 2024 12:00 AM Outpatient Encounter EVENT (HISTORICAL) IHE Encounter Template Text not used by [place] Plan of Treatment: Future Appointments (+ 6 months) and Future Tests (+/- 45 days) The Plan of Treatment section includes future care activities for the patient from all [place] treatmentfacilities. This section includes future appointments and future orders which are active, pending or scheduled. Future Appointments This section includes appointments that were scheduled to occur 6 months from the date of the Encounter, up to a maximum of 20 appointments. The data comes from all [place] treatment [facility]. Appointment Date/Time Appointment Type Appointme nt Facility Name Apr 23, 2024 10:45 AM [facility] Apr 29, 2024 10:00 AM [facility] Jun 01, 2024 11:30 AM AMBULATORY - MEDICINE [facility] Sep 10, 2024 10:00 AM AMBULATORY - NONE [facility] Active, Pending, and Scheduled Orders This section includes a listing of several types of active, pending, and scheduled orders, including clinic medications orders, diagnostic test orders, procedure orders and consult orders; where the start date of the order is 45 days before the date of the Encounter or 45 days after the date of theEncounter. The data comes from all [facility]. Test Date/Time Test Type Test Details Facility Name Mar 05, 2024 12:00 AM Laboratory - Chemistry Order MICROALBUMIN CREATININE RATIO PANEL URINE (RANDOM) SP [facility] Apr 29, 2024 10:07 AM Consult Order COMMUNITY CARE-MRI Cons Can [facility] [place] [facility] Vital Signs: All taken on the encounter date This section contains inpatient and outpatient Vital Signs collected on the date of the Encounter. Date/Time Temperature Pulse Blood Pressure Respiratory Rate SP02 Pain Height Weight Body Mass Index Source Apr 06, 2024 09:39 AM 97.5 76 138/63 20 98 7 71 230 32 [place] [facility] [place] [facility] Social History: Smoking Status (Most current) and Tobacco Use (All prior to encounter date) This section includes the most current, and the historical, smoking and tobacco- related health factors from the [place] facility where the Encounter took place. Current Smoking Status This section includes the most current smoking, or tobacco-related health factor, from the [place] facility where the Encounter took place. Date/Time Current Smoking Status Comment [facility] Apr 06, 2024 10:00 AM VA-TOBACCO FORMER USER [place] [facility] [place] [facility] Tobacco Use History This section includes a history of the smoking, or tobacco-related health factors, that were collected on or before the date of the Encounter. The data comes from the [place] facility where the Encounter took place. Date/Time Smoking Status/Tobac co Use Comment Facility Apr 06, 2024 10:00 AM VA-TOBACCO QUIT 15 YRS OR MORE [facility] [place] [facility] Apr 05, 2023 11:30 AM VA-TOBACCO FORMER USER [place] [facility] [place] [facility] Apr 05, 2023 11:30 AM VA-TOBACCO QUIT 15 YRS OR MORE [facility] [place] [facility] Dec 28, 2021 09:30 AM VA-TOBACCO FORMER USER [place] [facility] [place] [facility] Dec 28, 2021 09:30 AM VA-TOBACCO QUIT 15 YRS OR MORE [facility] [place] [facility] Dec 02, 2020 09:00 AM VA-TOBACCO FORMER USER [place] [facility] [place] [facility] Dec 02, 2020 09:00 AM VA-TOBACCO QUIT 15 YRS OR MORE [facility] [place] [facility] Aug 18, 2019 03:19 PM VA-TOBACCO FORMER USER [place] [facility] [place] [facility] Aug 18, 2019 03:19 PM VA-TOBACCO QUIT 15 YRS OR MORE [facility] [place] [facility] September 23, 2018 09:58 AM VA-TOBACCO FORMER USER [facility] [place] [facility] September 23, 2018 09:58 AM VA-TOBACCO QUIT 15 YRS OR MORE [facility] [place] [facility] September 30, 2017 09:20 AM QUIT TOBACCO USE > 7 YEARS AGO [facility] [place] [facility] Aug 20, 2016 09:17 AM QUIT TOBACCO USE > 7 YEARS AGO quit 1991 [facility] Jun 27, 2016 09:45 AM CURRENT SMOKER Quit 25 years ago [facility] Apr 18, 2015 09:06 AM QUIT TOBACCO USE > 7 YEARS AGO quit in 1991 [facility] Mar 21, 2005 10:12 AM HISTORY OF SMOKING [facility] Mar 21, 2005 10:12 AM QUIT TOBACCO USE > 7 YEARS AGO [facility] Advance Directives: All historical and current Section Date Range: From patient's date of to the date document was created. This section includes ALL of a patient's completed or amended [place] Advance and Rescinded Directives. The entries below indicate that a directive exists for the patient, but an actual copy is not included with this document. The data comes from all [place] facilities. Date Advance Directives Provider Source Feb 04, 2019 ADVANCE DIRECTIVE CESAR LUA [facility] Encounter Notes: All associated encounter notes This section contains the clinical notes associated to the Encounter. Date/Time Encounter Note(s) Provider Source Apr 06, 2024 12:00 AM NONVA NOTE: LOCAL TITLE: NON-VA HOSPITALIZATIONS/ER STANDARD TITLE: NONVA NOTE DATE OF NOTE: APR 06, 2024 ENTRY DATE: MAY 01, 2024@15:36:28 AUTHOR: АНДРЕЙ KIDD EXP COSIGNER: URGENCY: STATUS: COMPLETED VistA Imaging - Scanned Document SCANNED DOCUMENT SIGNATURE NOT REQUIRED Electronically Filed: 05/01/2024 by: АНДРЕЙ KIDD JUNIOR PROJECT MANAGER АНДРЕЙ KIDD [facility]
--- OUTSIDE RECORDS SUMMARY | 2024-05-29 10:34 | XMS_ITS | Encounter Summary ---
Author Name [facility] [place] Address [address] [place] [address] Care Team Providers Care Director Of Financial Reporting Name Role Phone LUIS AGGARWAL [facility] Insurance Providers: All historical and current [...] STAND YON SELF May 29, [phone] [id number] Abdullahi SEVERINO PATIENT MEDICARE (WNR) MEDICARE (M) PART B Jul 18, 2012 PART B [id number] [phone] Abdullahi SEVERINO PATIENT MEDICARE (WNR) MEDICARE (M) PART B Jul 18, 2012 PART B [id number] [phone] Abdullahi SEVERINO PATIENT MEDICARE (WNR) MEDICARE (M) PART B Jul 18, 2012 PART B [id number] Abdullahi SEVERINO PATIENT MEDICARE (WNR) MEDICARE (M) PART A Dec 19, 2011 PART A [id number] Abdullahi SEVERINO PATIENT MEDICARE (WNR) MEDICARE (M) PART A Dec 19, 2011 PART A [id number] [phone] Abdullahi SEVERINO PATIENT MEDICARE (WNR) MEDICARE (M) PART A Dec 19, 2011 PART A [id number] [phone] Abdullahi SEVERINO PATIENT Selected Encounter This section includes the information on record at [place] for the Encounter. Date/Time Encounter Type Encounter Description Reason Provider Source Apr 29, 2024 10:00 AM OFFICE O/P EST HI 40 MIN PRIMARY CARE/MEDICINE ICD-10-CM E11.9 Type 2 diabetes mellitus without complications AGGARWAL,WILL DAMIEN Koch [facility] Encounter Template Text not used by [place] Assessments - Encounter Diagnoses This section includes the primary and secondary diagnoses documented for the Encounter. Date/Time Primary/Secondary Diagnosis Diagnosis Name Provider Source Apr 29, 2024 10:17 AM PRIMARY Type 2 diabetes mellitus without complications AGGARWAL,WILL DAMIEN [facility] Apr 29, 2024 10:17 AM SECONDARY Chronic kidney disease, stage 1 AGGARWAL,WILL DAMIEN [facility] Apr 29, 2024 10:17 AM SECONDARY Essential (primary) hypertension AGGARWAL,WILL DAMIEN [facility] [place] [facility] Apr 29, 2024 10:17 AM SECONDARY Heart disease, unspecified AGGARWAL,WILL DAMIEN [facility] Apr 29, 2024 10:17 AM SECONDARY Mixed hyperlipidemia AGGARWAL,WILL DAMIEN [facility] Apr 29, 2024 10:17 AM SECONDARY Obesity, unspecified AGGARWAL,WILL DAMIEN [facility] Apr 29, 2024 10:17 AM SECONDARY Obstructive sleep apnea (adult) (pediatric) AGGARWAL,WILL DAMIEN [facility] Apr 29, 2024 10:17 AM SECONDARY Type 2 diabetes mellitus w diabetic chronic kidney disease AGGARWAL,WILL DAMIEN J [facility] Plan of Treatment: Future Appointments (+ 6 months) and Future Tests (+/- 45 days) The Plan of Treatment section includes future care activities for the patient [facility] [place] [facility] This section includes future appointments and future orders which are active, pending or scheduled. Future Appointments This section includes appointments that were scheduled to occur 6 months from the date of the Encounter, up to a maximum of 20 appointments. The data comes from all [facility]. Appointment Date/Time Appointment Type Appointme nt Facility Name Jun 01, 2024 11:30 AM AMBULATORY - MEDICINE [facility] Sep 10, 2024 10:00 AM AMBULATORY - NONE [facility] Active, Pending, and Scheduled Orders This section [...] 10:07 AM Consult Order COMMUNITY CARE-MRI Cons Supervisor [facility] Jun 02, 2024 12:00 AM Laboratory - Chemistry Order BASIC METABOLIC PANEL (non-fasting) BLOOD (SST-SERUM) [facility] Jun 02, 2024 12:00 AM Laboratory - Chemistry Order HEMOGLOBIN A1C PANEL BLOOD (LAV-BLOOD) [facility] Vital Signs: All taken on the encounter date This section contains inpatient and outpatient Vital Signs collected on the date of the Encounter. Date/Time Temperature Pulse Blood Pressure Respiratory Rate SP02 Pain Height Weight Body Mass Index Source Apr 29, 2024 10:05 AM 134/74 [facility] Apr 29, 2024 09:32 AM 97.1 69 152/70 20 98 6 71 234 33 [facility] Social History: Smoking Status (Most current) and [...] took place. Date/Time Current Smoking Status Comment [facility] Apr 06, 2024 10:00 AM VA-TOBACCO FORMER USER [place] [facility] [place] [facility] Tobacco Use History This section includes a history of the smoking, or tobacco-related health factors, that were collected on or before the date of the Encounter. The data comes from the [place] facility where the Encounter took place. Date/Time Smoking Status/Tobac co Use Comment Facility Apr 06, 2024 10:00 AM VA-TOBACCO QUIT 15 YRS OR MORE [place] [facility] [place] [facility] Apr 05, 2023 11:30 AM VA-TOBACCO FORMER USER [facility] [place] [facility] Apr 05, 2023 11:30 AM VA-TOBACCO QUIT 15 YRS OR MORE [facility] [place] [facility] Dec 28, 2021 09:30 AM VA-TOBACCO FORMER USER [place] [facility] [place] [facility] Dec 28, 2021 09:30 AM VA-TOBACCO QUIT 15 YRS OR MORE [place] [facility] [place] [facility] Dec 02, 2020 09:00 AM VA-TOBACCO FORMER USER [place] [facility] [place] [facility] Dec 02, 2020 09:00 AM VA-TOBACCO QUIT 15 YRS OR MORE [facility] [place] [facility] Aug 18, 2019 03:19 PM VA-TOBACCO FORMER USER [facility] [place] [facility] Aug 18, 2019 03:19 PM VA-TOBACCO QUIT 15 YRS OR MORE [facility] [place] [facility] September 23, 2018 09:58 AM VA-TOBACCO FORMER USER [facility] [place] [facility] September 23, 2018 09:58 AM VA-TOBACCO QUIT 15 YRS OR MORE [facility] [place] [facility] September 30, 2017 09:20 AM QUIT TOBACCO USE > 7 YEARS AGO [facility] [place] [facility] Aug 20, 2016 09:17 AM QUIT TOBACCO USE > 7 YEARS AGO quit 1992 [place] [facility] [place] [facility] Jun 27, 2016 09:45 AM CURRENT SMOKER Quit 25 years ago [facility] [place] [facility] Apr 18, 2015 09:06 AM QUIT TOBACCO USE > 7 YEARS AGO quit in 1991 [facility] Mar 21, 2005 10:12 AM HISTORY OF SMOKING [facility] Mar 21, 2005 10:12 AM QUIT TOBACCO USE > 7 YEARS AGO [facility] Advance Directives: All historical and current Section [...] Provider Source Feb 04, 2019 ADVANCE DIRECTIVE STONEY,LUCI [facility] Encounter Notes: All associated encounter notes This section contains the clinical notes associated to the Encounter. Date/Time Encounter Note(s) Provider Source Apr 29, 2024 10:07 AM PRIMARY CARE NURSE PRACTITIONER OUTPATIENT NOTE: LOCAL TITLE: NURSE PRACTITIONER OUTPATIENT NOTE STANDARD TITLE: PRIMARY CARE NURSE PRACTITIONER OUTPATIENT NOTE DATE OF NOTE: APR 29, 2024@10:07 ENTRY DATE: APR 29, 2024@10:07:57 AUTHOR: LUIS AGGARWAL COSIGNER: URGENCY: STATUS: COMPLETED Chief complaint: Patient is a 79 year old [place]. HPI: Pleasant male here to follow up. Feeling well now. At our last visit he had reported increased fatigue and [place]. I had him go to ER for evaluation, he was dx with Covid and given paxlovid. His sx started to improve the following day and so he did not take the med. Sx now resolved. He main concern is right shoulder pain with worsening ROM limitations. Allergies: DEMEROL 100MG/ML CARTRIDGE The following VA [...] TABLET BY MOUTH ONCE ACTIVE DAILY FOR BLOOD PRESSURE/HEART, DO NOT TAKE WITH GRAPEFRUIT JUICE Indication: FOR HIGH BLOOD PRESSURE 3) ATORVASTATIN CALCIUM 80MG TAB TAKE ONE TABLET BY MOUTH ONCE ACTIVE DAILY FOR CHOLESTEROL Indication: FOR HIGH CHOLESTEROL 4) EMPAGLIFLOZIN 25MG TAB TAKE ONE TABLET BY MOUTH ONCE DAILY ACTIVE FOR DIABETES 5) FENOFIBRATE 145MG TAB TAKE ONE TABLET BY MOUTH ONCE DAILY ACTIVE Indication: FOR HIGH CHOLESTEROL 6) FISH OIL 1000MG (500MG DHA/EPA) CAP TAKE TWO CAPSULES BY HOLD MOUTH TWICE DAILY Indication: TO REDUCE TRIGLYCERIDES 7) HYDROCHLOROTHIAZIDE 25MG TAB TAKE ONE TABLET BY MOUTH ONCE ACTIVE DAILY Indication: FOR HIGH BLOOD PRESSURE 8) INSULIN CONC REG HUM 500 UNT/ML KWIKPEN INJECT DIRECTED ACTIVE SUBCUTANEOUSLY THREE TIMES A DAY CONCENTRATED INSULIN DO NOT ADJUST DOSE WITHOUT THE CONSENT OF YOUR DIRECTOR MERIT SYSTEM. 80 UNITS AM, 50 UNITS LUNCH, 40 UNITS DINNER. NO BEDTIME DOSE Indication: FOR DIABETES MELLITUS 9) METFORMIN HCL 500MG TAB TAKE ONE TABLET BY MOUTH TWICE DAILY ACTIVE FOR DIABETES 10) METOPROLOL SUCCINATE 25MG SA TAB TAKE ONE TABLET BY MOUTH ACTIVE ONCE DAILY Indication: FOR HIGH BLOOD PRESSURE 11) SEMAGLUTIDE 2MG/0.75ML INJ PEN 3ML INJECT 2MG SUBCUTANEOUSLY ACTIVE ONCE A WEEK Indication: FOR TYPE 2 DIABETES MELLITUS 12) SPIRONOLACTONE 25MG TAB TAKE ONE TABLET BY MOUTH ONCE DAILY ACTIVE Indication: FOR HIGH BLOOD PRESSURE 13) VALSARTAN 320MG TAB TAKE ONE TABLET BY MOUTH ONCE DAILY ACTIVE Indication: FOR HIGH BLOOD PRESSURE Inactive Outpatient Medications Status 1) GLUCAGON 1MG/CESAR INJ EMERGENCY KIT INJECT 1 INJECTION INTRAMUSCULARLY ONE TIME NEEDED Indication: FOR LOW BLOOD SUGAR Active Non-VA Medications Status 1) Non-VA AMLODIPINE BESYLATE 5MG TAB 5MG BY MOUTH ONCE DAILY ACTIVE Indication: FOR HIGH BLOOD PRESSURE 2) Non-VA ASPIRIN 81MG EC TAB 81MG BY MOUTH ONCE DAILY ACTIVE 16 Total Medications Review of Systems: Constitutional: (-)for Fevers, chills, weakness, nights sweats On examination: 97.1 F [36.2 C] (04/29/2024 09:32)134/74 (04/29/2024 10:05)69 (04/29/2024 09:32)20 (04/29/2024 09:32)6 (04/29/2024 09:32)BMI: 32.7234 lb [106.14 kg] (04/29/2024 09:32) Bradford is alert and oriented X3 Neck: supple [...] the followin. Diabetes mellitus type 2 - follows in endocrine, HGB A1C doing well, 6.0. 2. 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 3. Obstructive sleep apnea syndrome - because of his shoulder pain, he is not tolerating cpap, he plans to resume once shoulder is better. 4. Arteriosclerotic heart disease - follows [facility] in [place], BP well controlled, lipids controlled. 5. Obesity - he is making efforts, wt coming down. 6. Hyperlipidemia - well controlled, continue statin. 7. Benign essential hypertension - well controlled, [facility] Care Maintenance: UP TO DATE Today I spent 40 minutes on some or all of the following: chart review, history, physical examination, treatment planning, education and counseling of the patient/family/nanny caregiver, placing orders, communicating with other health care providers, and documentation in the electronic health record Follow up visit in 6 mos. Medication Reconciliation: Outpatient: Has the patient been taking medications as documented in the EMLR? YES: The patient has been taking medications as documented in the EMLR. Essential Medication List for Review used to complete this medication reconciliation. INCLUDED IN THIS LIST: Alphabetical list of active outpatient prescriptions dispensed from this [place] (local) and dispensed from another [place] or [facility] facility (remote) as well as inpatient orders [...] with a VA or non-VA provider. /skinny/ Luis Aggarwal DNP, WOUND NURSE-BC, CNL Primary Care Nurse Practitioner Signed: 04/29/2024 10:16 LUIS AGGARWAL [place] [facility]
--- OUTSIDE RECORDS SUMMARY | 2024-05-29 10:34 | XMS_ITS | Encounter Summary ---
Author Name [facility] [facility] [place] Organization [facility] [place] Address [address] [place] [address] Care Team Providers Care General Engineering Teacher Name Role Phone STACEY HORTON Primary [...] STAND YON SELF May 29, 2001 104 [id number] Abdullahi SEVERINO PATIENT MEDICARE (WNR) MEDICARE (M) PART B Jul 18, 2012 PART B [id number] Abdullahi SEVERINO PATIENT MEDICARE (WNR) MEDICARE (M) PART B Jul 18, 2012 PART B [id number] Abdullahi SEVERNIO PATIENT MEDICARE (WNR) MEDICARE (M) PART B Jul 18, 2012 PART B [id number] 96A Abdullahi SEVERINO PATIENT MEDICARE (WNR) MEDICARE (M) PART A Dec 19, 2011 PART A [id number] 96A Abdullahi SEVERINO PATIENT MEDICARE (WNR) MEDICARE (M) PART A Dec 19, 2011 PART A [id number] [phone] Abdullahi SEVERINO PATIENT MEDICARE (WNR) MEDICARE (M) PART A Dec 19, 2011 PART A [id number] Abdullahi SEVERINO PATIENT Selected Encounter This section includes the information on record at [place] for the Encounter. Date/Time Encounter Type Encounter Description Reason Provider Source May 14, 2024 02:31 PM Outpatient Encounter HT NON-VIDEO MONITORING ICD-10-CM E11.9 Type 2 diabetes mellitus without complications KRISTIE LORD [facility] Encounter Template Text not used by [place] Assessments - Encounter Diagnoses This section includes the primary and secondary diagnoses documented for the Encounter. Date/Time Primary/Secondary Diagnosis Diagnosis Name Provider Source May 14, 2024 03:10 PM PRIMARY Type 2 diabetes mellitus without complications RISA,BRE [facility]L [place] [facility] May 14, 2024 03:10 PM SECONDARY Essential (primary) hypertension RISA,BRE [facility] CNTR [place] [facility] Plan of Treatment: Future Appointments (+ 6 [...] - MEDICINE AL C [facility]L [place] [facility] Sep 10, 2024 10:00 AM AMBULATORY - NONE [place]L [place] [facility] Oct 30, 2024 10:00 AM AMBULATORY - MEDICINE [facility]L [place] [facility] Active, Pending, and Scheduled Orders This section [...] 10:07 AM Consult Order COMMUNITY CARE-MRI Cons Senior Biostatistician/Group Leader's Choice [place] [facility] [facility] Jun 02, 2024 12:00 AM Laboratory - Chemistry Order BASIC METABOLIC PANEL (non-fasting) BLOOD (SST-SERUM) SP [place] CNTR [place] [facility] Jun 02, 2024 12:00 AM Laboratory - Chemistry Order HEMOGLOBIN A1C PANEL BLOOD (LAV-BLOOD) [facility] Social History: Smoking Status (Most current) and [...] place. Date/Time Current Smoking Status Comment [facility] Apr 06, 2024 10:00 AM VA-TOBACCO FORMER USER [place] [facility] [place] [facility] Tobacco Use History This section includes a history of the smoking, or tobacco-related health factors, that were collected on or before the date of the Encounter. The data comes from the [place] facility where the Encounter took place. Date/Time Smoking Status/Tobac co Use Comment Facility Apr 06, 2024 10:00 AM VA-TOBACCO QUIT 15 YRS OR MORE AL [facility] [place] [facility] Apr 05, 2023 11:30 AM VA-TOBACCO FORMER USER AL [facility] [place] [facility] Apr 05, 2023 11:30 AM VA-TOBACCO QUIT 15 YRS OR MORE AL [facility] [place] [facility] Dec 28, 2021 09:30 AM VA-TOBACCO FORMER USER AL [facility] [place] [facility] Dec 28, 2021 09:30 AM VA-TOBACCO QUIT 15 YRS OR MORE AL [facility] [place] [facility] Dec 02, 2020 09:00 AM VA-TOBACCO FORMER USER AL [facility] [place] [facility] Dec 02, 2020 09:00 AM VA-TOBACCO QUIT 15 YRS OR MORE [place] [facility] [place] [facility] Aug 18, 2019 03:19 PM VA-TOBACCO [facility] Aug 18, 2019 03:19 PM VA-TOBACCO QUIT 15 YRS OR MORE AL [facility] September 23, 2018 09:58 AM VA-TOBACCO FORMER USER [facility] September 23, 2018 09:58 AM VA-TOBACCO QUIT 15 YRS OR MORE [facility] September 30, 2017 09:20 AM QUIT TOBACCO USE > 7 YEARS AGO [facility] Aug 20, 2016 09:17 AM QUIT TOBACCO USE > 7 YEARS AGO quit 1991 [facility] WSN [facility] Jun 27, 2016 09:45 AM CURRENT SMOKER Quit 25 [facility] Apr 18, 2015 09:06 AM QUIT TOBACCO USE > 7 YEARS AGO [facility] 1991 [facility] Mar 21, 2005 10:12 AM HISTORY OF SMOKING [facility] WSTRN [facility] Mar 21, 2005 10:12 AM QUIT TOBACCO USE > 7 YEARS AGO [facility] Advance Directives: All [...] 04, 2019 ADVANCE DIRECTIVE CESAR LUA [facility] Encounter Notes: All associated encounter notes This section contains the clinical notes associated to the Encounter. Date/Time Encounter Note(s) Provider Source May 14, 2024 03:09 PM CARE COORDINATION HOME TELEHEALTH SUMMARIZATION NOTE: LOCAL TITLE: HT MONTHLY MONITOR NOTE STANDARD TITLE: CARE COORDINATION HOME TELEHEALTH SUMMARIZATION DATE OF NOTE: MAY 14, 2024@15:09 ENTRY DATE: MAY 14, 2024@15:09:58 AUTHOR: TOÑO LORD EXP COSIGNER: URGENCY: STATUS: COMPLETED The is enrolled in the Home Telehealth (HT) program and continues to be monitored via HT technology. The data sent by the [facility] is reviewed and analyzed by the HT staff, who provide ongoing case management and [facility] health education while communicating and collaborating with the health care team as appropriate. This note covers a total of 30 minutes for the month monitored. Month monitored: APRIL 2024 Dx: DM/HTN /es/ TOÑO LORD RN RPM-Home Telehealth Unbundler Signed: 05/14/2024 15:12 TOÑO LORD [facility]
--- OUTSIDE RECORDS SUMMARY | 2024-05-29 10:34 | XMS_ITS | Encounter Summary ---
Author Name Department of Veter[facility] [place]) Organization [facility] [place] [facility] [place] Address [address] [place] [address] Care Team Providers Care Rn Staff Name Role Phone STACEY HORTON Primary Care Provider Unavailvirtua voorhees Insurance Providers: All historical and current Section [...] STAND YON SELF May 29, 2001 104 [id number] [phone] Abdullahi SEVERINO PATIENT MEDICARE (WNR) MEDICARE (M) PART B Jul 18, 2012 PART B [id number] Abdullahi SEVERINO PATIENT MEDICARE (WNR) MEDICARE (M) PART B Jul 18, 2012 PART B [id number] [phone] Abdullahi SEVERINO PATIENT MEDICARE (WNR) MEDICARE (M) PART B Jul 18, 2012 PART B [id number] Abdullahi SEVERINO PATIENT MEDICARE (WNR) MEDICARE (M) PART A Dec 19, 2011 PART A [id number] 96A Abdullahi SEVERINO PATIENT MEDICARE (WNR) MEDICARE (M) PART A Dec 19, 2011 PART A [id number] [phone] Abdullahi SEVERINO PATIENT MEDICARE (WNR) MEDICARE (M) PART A Dec 19, 2011 PART A [id number] Abdullahi SEVERINO PATIENT Selected Encounter This section includes the information on record at [place] for the Encounter. Date/Time Encounter Type Encounter Description Reason Provider Source May 05, 2024 11:06 AM PRO PHONE CALL 11-20 MIN TELEPHONE/MEDICIN E ICD-10-CM E66.9 Obesity, unspecified NIKKY LORD DA IHAfshin Encounter Template Text not used by [place] Assessments - Encounter Diagnoses This section includes the primary and secondary diagnoses documented for the Encounter. Date/Time Primary/Secondary Diagnosis Diagnosis Name Provider Source May 05, 2024 11:06 AM PRIMARY Obesity, unspecified RISA,KRISTIE NDA [place]L [place] [facility] May 05, 2024 11:06 AM SECONDARY Essential (primary) hypertension RISAKRISTIE BRIDGES NDA [place] CNTR [place] [facility] Plan of Treatment: Future Appointments [...] - MEDICINE [place] C [place]TRL [place] [facility] Sep 10, 2024 10:00 AM AMBULATORY - NONE [place] [facility] Oct 30, 2024 10:00 AM AMBULATORY - MEDICINE [facility] [place] [facility] Active, Pending, and Scheduled Orders [...] 10:07 AM Consult Order COMMUNITY CARE-MRI Cons Budget Report Clerk's Choice [place]L [place] [facility] Jun 02, 2024 12:00 AM Laboratory - Chemistry Order HEMOGLOBIN A1C PANEL BLOOD (LAV-BLOOD) SP [facility] Jun 02, 2024 12:00 AM Laboratory - Chemistry Order BASIC METABOLIC PANEL (non-fasting) BLOOD (SST-SERUM) [facility] Social History: Smoking Status (Most current) [...] took place. Date/Time Current Smoking Status Comment [facility] Apr 06, 2024 10:00 AM VA-TOBACCO FORMER USER [facility] Tobacco Use History This section includes a history of the smoking, or tobacco-related health factors, that were collected on or before the date of the Encounter. The data comes from the [place] facility where the Encounter took place. Date/Time Smoking Status/Tobac co Use Comment Facility Apr 06, 2024 10:00 AM VA-TOBACCO QUIT 15 YRS OR MORE [place]L [place] [facility] Apr 05, 2023 11:30 AM VA-TOBACCO FORMER USER [place]TRL [place] [facility] Apr 05, 2023 11:30 AM VA-TOBACCO QUIT 15 YRS OR MORE [place]L [place] [facility] Dec 28, 2021 09:30 AM VA-TOBACCO FORMER USER [place]L [place] [facility] Dec 28, 2021 09:30 AM VA-TOBACCO QUIT 15 YRS OR MORE [place]L [place] [facility] Dec 02, 2020 09:00 AM VA-TOBACCO FORMER USER [place]TRL [place] [facility] Dec 02, 2020 09:00 AM VA-TOBACCO QUIT 15 YRS OR MORE [facility] [place] [facility] Aug 18, 2019 03:19 PM VA-TOBACCO FORMER USER OR CNTR [facility] Aug 18, 2019 03:19 PM VA-TOBACCO QUIT 15 YRS OR MORE [place]L [place] [facility] September 23, 2018 09:58 AM VA-TOBACCO FORMER USER [facility] September 23, 2018 09:58 AM VA-TOBACCO QUIT 15 YRS OR MORE [facility] September 30, 2017 09:20 AM QUIT TOBACCO USE > 7 YEARS AGO [facility] Aug 20, 2016 09:17 AM QUIT TOBACCO USE > 7 YEARS AGO quit 1991 [facility] Jun 27, 2016 09:45 AM CURRENT SMOKER Quit 25 years ago [facility] Apr 18, 2015 09:06 AM QUIT TOBACCO USE > 7 YEARS AGO quit in 1991 [facility] Mar 21, 2005 10:12 AM HISTORY OF SMOKING [facility] Mar 21, 2005 10:12 AM QUIT TOBACCO USE > 7 YEARS AGO [facility] Advance Directives: All historical and current [...] 2019 ADVANCE DIRECTIVE CESAR LUA [facility] W [facility]N [facility] Encounter Notes: All associated encounter notes This section contains the clinical notes associated to the Encounter. Date/Time Encounter Note(s) Provider Source May 05, 2024 11:06 AM CARE COORDINATION HOME TELEHEALTH FOLLOW-UP NOTE: LOCAL TITLE: HT INTERVENTION NOTE STANDARD TITLE: CARE COORDINATION HOME TELEHEALTH FOLLOW-UP NOTE DATE OF NOTE: MAY 05, 2024@11:06 ENTRY DATE: MAY 05, 2024@11:07 AUTHOR: TOÑO LORD EXP COSIGNER: URGENCY: STATUS: COMPLETED is actively enrolled in the Home Telehealth program. Review of data shows the following out of range responses: HT ALERT: HTN CARL SEVERINO (-[id number]) Vital Sign for: 04/06/2024 - 05/05/2024 (All times are EST; All weights are lbs) Primary DMP: VHA-Wt Mgmt Comorbid(s): DM/HTN Summary Weight Sys BP Krishnamurthy BP HR Glu Pain High 160 105 98 257 Low 112 55 54 70 Average 135 71 65 135 Date Time Wt Time Sys Krishnamurthy HR Time Glu Time Pain 05/04/2024 - 19:57 138/71 62 - 05/04/2024 - 18:50 160/68 62 18:36 115 05/03/2024 - 07:45 126/66 74 07:38 160 05/02/2024 - 18:32 132/70 73 18:23 159 05/01/2024 - 17:17 150/68 67 17:15 90 04/30/2024 - 10:56 145/73 61 10:35 144 04/29/2024 - 21:34 159/64 64 21:16 157 04/27/2024 - 22:34 144/80 61 22:11 173 04/26/2024 - 16:06 142/64 77 16:00 129 04/25/2024 - 18:54 158/69 68 18:44 90 04/24/2024 - 16:47 132/65 63 16:40 103 04/23/2024 - 21:28 124/66 74 21:11 185 04/22/2024 - 19:45 146/64 62 19:34 170 04/21/2024 - 14:55 137/70 61 - 04/21/2024 - - - 14:42 257 04/20/2024 - 07:53 157/73 55 07:39 90 04/18/2024 - 10:22 129/63 61 10:04 119 04/17/2024 - 21:38 127/55 66 21:29 138 04/16/2024 - 12:29 125/105 57 12:19 149 04/15/2024 - 19:20 128/63 64 19:12 121 04/14/2024 - 20:45 125/70 59 20:34 135 04/14/2024 - 17:28 133/61 62 17:10 70 04/13/2024 - 01:42 131/69 54 01:27 118 04/12/2024 - 08:11 141/69 65 07:52 134 04/11/2024 - 19:57 128/98 98 19:50 170 04/10/2024 - 16:45 120/99 55 16:30 100 04/09/2024 - 04:40 112/74 61 04:27 145 04/08/2024 - 19:37 113/63 59 19:30 95 04/07/2024 - 19:53 125/68 64 19:42 141 Source: [employer]; [employer] Assessment: Spoke to , Identified by full name/. Reviewed above Vitals with [place]. Noting overall average BP 135/71 HR 65 BG 135. is enrolled in RPM/HT Program for Wt management with comorbidities of DM/HTN (see active problems for complete list). requested to suspend his daily weight measurement in Jan 2024 due to knee surgeries. [place] reported that he was having increased pain and not able to safely stand on scale. complained of some unsteadiness at times. Discussed with [place] importance of resuming the daily weight checks. [place] states I am still having difficulty with the left leg pain and still using a cane. My balance is still unsteady. states I will plan to resume weight checks next week . Instructed he will need to contact HT CC to update his equipment to include weight check. agreed to contact va underwriter next week to resume. Intervention(s)/Plan: Teach s/s of HTN, stroke, heart attack Reviewed importance of learning self management of weight/HTN/DM by completing daily health checks including weight. Reviewed importance of low sodium diet. Goal sodium intake <1500 mg/day Encouraged to ambulate with cane as tolerated TYPE OF ENCOUNTER: Telephone Length of call: 11-20 minutes /skinny/ TOÑO LORD RN [facility]-Home Telehealth Lehr Cutter Signed: 05/05/2024 13:32 TOÑO LORD OR CNTRL WSTRHimanshu [facility]
--- OUTSIDE RECORDS SUMMARY | 2024-05-29 10:35 | XMS_ITS ---
Author Organization [facility] Address [address] [place] [address] Care Team Providers Care Gel Coat Sprayer Name Role Phone Luis Aggarwal N.P Primary Care Provider Unav ailable ChioNeel Unavailable [phone] REASON FOR VISIT Refill Request Encounters Encounter Location Date Provider Diagnosis [address] [address] 04/24/2024 Neel Barroso Plan Of Treatment Next Appt Details Provider Name:Neel Barroso , 06/09/2024 03:15:00 PM, [address] [place] [address], [phone], Progress Notes * Otoniel WILEYDOB: (79 yo M)Acc No.[id number]:04/24/2024 Patient:?Otoniel WILEY :1945???Age:79 Y???Sex:Male Address:[address] [place] [address], [phone] * true * Date:? Generated for Printi ng/Faxing/eTransmitting on:?05/29/2024 10:12 AM EST
--- OUTSIDE RECORDS SUMMARY | 2024-05-29 10:35 | XMS_ITS ---
Author Name [facility] of [facility] [place] Organization [facility] [place] Address [address] [place] [address] Care Team Providers Care Budget Accountant Name Role Phone STACEY HORTON Primary Care [...] STAND YON SELF May 29, 2001 104 [id number] [phone] Abdullahi SEVERINO PATIENT MEDICARE (WNR) MEDICARE (M) PART B Jul 18, 2012 PART B [id number] [phone] Abdullahi SEVERINO PATIENT MEDICARE (WNR) MEDICARE (M) PART B Jul 18, 2012 PART B [id number] 96A Abdullahi SEVERINO PATIENT MEDICARE (WNR) MEDICARE (M) PART B Jul 18, 2012 PART B [id number] 96A Abdullahi SEVERINO PATIENT MEDICARE (WNR) MEDICARE (M) PART A Dec 19, 2011 PART A [id number] Abdullahi SEVERINO PATIENT MEDICARE (WNR) MEDICARE (M) PART A Dec 19, 2011 PART A [id number] [phone] Abdullahi SEVERINO PATIENT MEDICARE (WNR) MEDICARE (M) PART A Dec 19, 2011 PART A [id number] Abdullahi SEVERINO PATIENT Selected Encounter This section includes the information on record at [place] for the Encounter. Date/Time Encounter Type Encounter Description Reason Pro vider Source May 27, 2024 02:28 PM Outpatient Encounter TELEPHONE PRIMARY CARE IHE Encounter Template Text not used by ME Plan of Treatment: Future Appointments (+ 6 [...] from all [facility]. Appointment Date/Time Appointment Type Appointme nt Facility Name Jun 01, 2024 11:30 AM AMBULATORY - MEDICINE [facility] Sep 10, 2024 10:00 AM AMBULATORY - NONE [facility] Oct 30, 2024 10:00 AM AMBULATORY - MEDICINE [facility] Active, Pending, and Scheduled Orders This [...] from all [facility]. Test Date/Time Test Type Test Details Facility Name Apr 29, 2024 10:07 AM Consult Order COMMUNITY CARE-MRI Cons Race Car Mechanic's Choice [facility] Jun 02, 2024 12:00 AM Laboratory - Chemistry Order BASIC METABOLIC PANEL (non-fasting) BLOOD (SST-SERUM) SP [facility] Jun 02, 2024 12:00 AM Laboratory - Chemistry Order HEMOGLOBIN A1C PANEL BLOOD (LAV-BLOOD) SP [place] [facility] Social History: Smoking [...] took place. Date/Time Current Smoking Status Comment [facility] Apr 06, 2024 10:00 AM VA-TOBACCO FORMER USER [place] [facility] Tobacco Use History [...] YRS OR MORE [place] [facility] [place] [facility] Apr 05, 2023 11:30 AM VA-TOBACCO FORMER USER [place] [place] [facility] Apr 05, 2023 11:30 AM VA-TOBACCO QUIT 15 YRS OR MORE [place] [facility] [place] [facility] Dec 28, 2021 09:30 AM VA-TOBACCO FORMER USER [place]L [place] [facility] Dec 28, 2021 09:30 AM VA-TOBACCO QUIT 15 YRS OR MORE [place] [facility] [place] [facility] Dec 02, 2020 09:00 AM VA-TOBACCO FORMER USER [place]TRL [place] [facility] Dec 02, 2020 09:00 AM VA-TOBACCO QUIT 15 YRS OR MORE [place] [facility] [place] [facility] Aug 18, 2019 03:19 PM VA-TOBACCO FORMER USER [place]L [place] [facility] Aug 18, 2019 03:19 PM VA-TOBACCO QUIT 15 YRS OR MORE [place] [facility]L [place] [facility] September 23, 2018 09:58 AM VA-TOBACCO FORMER USER [place]TRL [place] [facility] September 23, 2018 09:58 AM VA-TOBACCO QUIT 15 YRS OR MORE [place] [facility]L [place] [facility] September 30, 2017 09:20 AM QUIT TOBACCO USE > 7 YEARS AGO [facility] WSTRN [facility] Aug 20, 2016 09:17 AM QUIT TOBACCO USE > 7 YEARS AGO [facility] Jun 27, 2016 09:45 AM CURRENT SMOKER Quit 25 years [facility] Apr 18, 2015 09:06 AM QUIT TOBACCO USE > 7 YEARS AGO [facility] Mar 21, 2005 10:12 AM HISTORY OF [facility]MOKING [facility] Mar 21, 2005 10:12 AM QUIT TOBACCO USE > 7 YEARS AGO [facility] Advance Directives: All historical and [...] Source Feb 04, 2019 ADVANCE DIRECTIVE STONEY,LUCI [facility] W STRN [facility] Encounter Notes: All associated encounter notes This section contains the clinical notes associated to the Encounter. Date/Time Encounter Note(s) Provider Source May 27, 2024 02:28 PM CARE COORDINATION HOME TELEHEALTH NOTE: LOCAL TITLE: HT NOTE STANDARD TITLE: CARE COORDINATION HOME TELEHEALTH NOTE DATE OF NOTE: MAY 27, 2024@14:28 ENTRY DATE: MAY 27, 2024@14:28:53 AUTHOR: TOÑO LORD EXP COSIGNER: URGENCY: STATUS: COMPLETED left a voice mail indicating that he was not able to do his BG, BP today due to having trouble today. [place] states I am going to the ED. I can't even write with my right hand or put BP cuff on cause my shoulder hurts so much. I will call with and update when I get home. Now time is 4:56 pm. Have not received a call back from as he planned. Photo Machine Operator will attempt to reach [place] tomorrow for an update. /skinny/ TOÑO LORD RN [facility]-Home Telehealth [place] Crewmember Signed: 05/27/2024 16:57 TOÑO LORD CNTRL WSTRN [facility]
--- OUTSIDE RECORDS SUMMARY | 2024-05-29 10:35 | XMS_ITS | Patient Health Record ---
[facility] Address [address] [place] [address] Care Team Providers Care Aerosol Line Operator Name Role Phone Luis Aggarwal N.P Primary Care Provider Unav ailNeel Butt Unavailable [phone] Allergies Allergen (clinical drug ingredient) Drug/Non Drug Allergy documented on EMR Reaction Allergy Type Onset Date Status meperidine Demerol rash Drug Allergy Active Reason For Referral No Information Medications Medication SIG (Take, Route, Frequency, Duration) Notes Start Date End Date Status Lantus 100 UNIT/ML Subcutaneous 70 units Active Fish Oil Active Naproxen Not-Taking Metoprolol Succinate Active Ozempic Active Diovan Not-Taking Ciclopirox Olamine 0.77 % 1 application Externally Twice a day to skin of feet including between the toes for 30 days Active glyBURIDE Not-Taking Atorvastatin Calcium 80 MG 1 tablet Orally Once a day Active Actos 15 MG 1 tablet Orally Once a day for 30 day(s) Not-Taking Aspirin Active Tricor Not-Taking NovoLOG 100 UNIT/ML Subcutaneous Active Metformin & Diet Manage Prod Active Trulicity Not-Taking Valsartan 80 MG 1 tablet Orally Once a day Active Immunizations Vaccine Route Administration Date Status Comme nts COVID-19 Pfizer BioNTech Vaccine Unknown 04/20/2021 Administered 1st 07/26/2020 2nd 08/16/2020 Influenza Unknown 04/13/2016 Administered Influenza Unknown 04/10/2017 Administered Influenza Unknown 04/08/2018 Administered Influenza Unknown 05/07/2019 Administered Influenza Unknown 01/25/2021 Administered Pneumococcal Unknown 03/31/2015 Administered Social History Tobacco Use: Social History Observation Description Date Details (start date - stop date) Former Smoker NA - NA Tobacco Use/Smoking Question Answer Notes Are you a: former smoker Additional Findings: Tobacco Non-User Current no n-smoker Alcohol Screen Question Answer Notes Did you have a drink containing alcohol in the p ast year? No Points 0 Interpretation Negative Tobacco use other than smoking: Question Answer Notes Are you an other tobacco user? No Problems Problem Type SNOMED Code ICD Code Onset Dates Problem Status W/U Status Risk Notes Problem Acquired hammer toe of right foot (7569047626380706 ) Other hammer toe(s) (acquired), right foot (M20.41) Active confirmed Response to treatment, Improvemen t Problem Acquired hammer toe of left foot (7990781774295002 ) Other hammer toe(s) (acquired), left foot (M20.42) Active confirmed Response to treatment, Improvemen t Problem Polyneuropathy due to diabetes mellitus type I (693217402) Type 1 diabetes mellitus with diabetic polyneuropathy (E10.42) Active confirmed Problem Essential hypertension (98691027) Essential hypertension (I10) Active confirmed Vital Signs Blood pressure diastolic 60 mm Hg 05/08/2024 Height 5ft 10 in in 05/08/2024 Blood pressure systolic 148 mm Hg 05/08/2024 Weight 240 lbs 05/08/2024 BMI 34.43 kg/m2 05/08/2024 Procedures Procedure Date Ordered Date Performed Result Body Sit e 22080-SLPDOGO NAIL, 6 OR MORE 07/19/2023 N/A 27947-QJWS SKIN LESIONS, OVER 4 07/19/2023 N/A 48898-ACWOFOI NAIL, 6 OR MORE 11/05/2023 N/A 68741-FKVO SKIN LESIONS, OVER 4 11/05/2023 N/A 75600-TGGFBGA NAIL, 6 OR MORE 03/13/2024 N/A 13498-CORJ SKIN LESIONS, OVER 4 03/13/2024 N/A Encounters Encounter Location Date Provider [facility] [address] [address] 07/19/2023 Neel Barroso Type 1 diabetes mellitus with diabetic polyneuropathy E10.42 and Tinea unguium B35.[address] [facility] [address] 11/05/2023 Neel Barroso Type 1 diabetes mellitus with diabetic polyneuropathy E10.42 and Tinea unguium B35.[address] [address] 03/13/2024 Neel Barroso Type 1 diabetes mellitus with diabetic polyneuropathy E10.42 and Tinea unguium B35.[address] [address] 05/08/2024 Neel Barroso Tinea pedis of both feet B35.[address] [address] 09/30/2023 Neel Barroso [address] [address] 01/31/2024 Neel Barroso [address] [address] 04/24/2024 Neel Barroso Assessments Encounter Date Diagnosis (ICD Code) Assessment Notes Treatment Notes Treatment Clinical Notes Section Notes 07/19/2023 Type 1 diabetes mellitus with diabetic polyneuropathy (ICD-10 - E10.42) 07/19/2023 Tinea unguium (ICD-10 - B35.1) 11/05/2023 Type 1 diabetes mellitus with diabetic polyneuropathy (ICD-10 - E10.42) 11/05/2023 Tinea unguium (ICD-10 - B35.1) 03/13/2024 Type 1 diabetes mellitus with diabetic polyneuropathy (ICD-10 - E10.42) 03/13/2024 Tinea unguium (ICD-10 - B35.1) 05/08/2024 Tinea pedis of both feet (ICD-10 - B35.3) Plan Of Treatment Pending Test Test Name Order Date 69922-QRSEQPG NAIL, 6 OR MORE 03/06/2011 15667-NPOOAGE NAIL, 6 OR MORE 06/12/2011 12383-YABJEGR NAIL, 6 OR MORE 08/28/2011 12144-NMMAZBQ NAIL, 6 OR MORE 01/29/2012 66915-YJRRGZQ NAIL, 6 OR MORE 04/15/2012 87848-RYGOHUE NAIL, 6 OR MORE 07/01/2012 31806-KWNECMW NAIL, 6 OR MORE 09/30/2012 94927-UXSLPVY NAIL, 6 OR MORE 12/30/2012 07164-QUMBFMA NAIL, 6 OR MORE 03/31/2013 64441-KGAGMJU NAIL, 6 OR MORE 07/07/2013 34154-BBYJEEE NAIL, 6 OR MORE 10/13/2013 12378-TZKJGVJ NAIL, 6 OR MORE 12/22/2013 59367-FMURNSQ NAIL, 6 OR MORE 03/30/2014 93817-YKLDWRK NAIL, 6 OR MORE 07/02/2014 60773-VWAFNJC NAIL, 6 OR MORE 10/01/2014 32048-WBURMYF NAIL, 6 OR MORE 01/04/2015 93313-GHEEZME NAIL, 6 OR MORE 04/19/2015 26287-XHPRYYB NAIL, 6 OR MORE 07/19/2015 04799-IACVPMC NAIL, 6 OR MORE 10/04/2015 37534-EURWCNH NAIL, 6 OR MORE 01/06/2016 70743-YGLBJHN NAIL, 6 OR MORE 04/10/2016 30738-JHAAYQJ NAIL, 6 OR MORE 07/13/2016 00290-FIXOBDZ NAIL, 6 OR MORE 10/12/2016 29184-UMGWINP NAIL, 6 OR MORE 01/18/2017 64118-WKRUTBY NAIL, 6 OR MORE 04/19/2017 76730-KYWSBJT NAIL, 6 OR MORE 07/19/2017 91120-SGUGYRY NAIL, 6 OR MORE 10/18/2017 47101-ODTOAMK NAIL, 6 OR MORE 01/24/2018 40080-NKPBRRW NAIL, 6 OR MORE 06/10/2018 11012-ELEVUWE NAIL, 6 OR MORE 09/09/2018 40296-PZYLJGK NAIL, 6 OR MORE 12/09/2018 43796-KYHVCOW NAIL, 6 OR MORE 03/10/2019 01078-PQYYGXV NAIL, 6 OR MORE 06/16/2019 29999-UPWUDSS NAIL, 6 OR MORE 09/15/2019 65324-NZFIDHG NAIL, 6 OR MORE 01/12/2020 25021-OFHIBXV NAIL, 6 OR MORE 04/19/2020 88521-VUJXWNB NAIL, 6 OR MORE 08/23/2020 58595-FVJTNJD NAIL, 6 OR MORE 11/22/2020 26530-MTFMNHP NAIL, 6 OR MORE 02/21/2021 80748-VCZFJUX NAIL, 6 OR MORE 05/23/2021 27031-QRDIYGO NAIL, 6 OR MORE 08/29/2021 27158-HWJRDKR NAIL, 6 OR MORE 11/28/2021 49914-ZYHAHTI NAIL, 6 OR MORE 02/20/2022 56874-AFJLTSG NAIL, 6 OR MORE 05/25/2022 26895-WDLYPGU NAIL, 6 OR MORE 08/21/2022 05643-LXROXYV NAIL, 6 OR MORE 11/23/2022 65959-XJZXKES NAIL, 6 OR MORE 02/19/2023 76578-LHIDTJZ NAIL, 6 OR MORE 05/10/2023 99733-JAZAEXA NAIL, 6 OR MORE 07/19/2023 77141-MCGQDOM NAIL, 6 OR MORE 11/05/2023 96089-QQXUDVH NAIL, 6 OR MORE 03/13/2024 95556-Gleekrkh Plate 04/10/2016 19675-Yhbtnjor Plate 06/12/2011 02214- Debride <25 sq cm 11/23/2022 58329-AARV SKIN LESIONS, OVER 4 03/13/20 24 98118-LZAZ SKIN LESIONS, OVER 4 11/05/19 24 42834-UUGL SKIN LESIONS, OVER 4 07/19/19 24 62092-PFJB SKIN LESIONS, OVER 4 05/10/20 23 03673-EYST SKIN LESIONS, OVER 4 02/20/20 23 48106-HLFO SKIN LESIONS, OVER 4 11/24/19 23 29153-EEZQ SKIN LESIONS, OVER 4 08/22/19 23 81469-NKFZ SKIN LESIONS, OVER 4 05/25/19 23 90900-YRNK SKIN LESIONS, OVER 4 02/21/20 27846-TLRS SKIN LESIONS, OVER 4 11/29/19 22 25974-RLIW SKIN LESIONS, OVER 4 08/30/19 22 09295-DNAW SKIN LESIONS, OVER 4 05/23/19 55608-ASOH SKIN LESIONS, OVER 4 02/22/20 94548-HRND SKIN LESIONS, OVER 4 11/23/19 21 89140-FDBC SKIN LESIONS, OVER 4 08/24/19 21 70681-ZLLU SKIN LESIONS, OVER 4 04/19/20 20 38956-OJQN SKIN LESIONS, OVER 4 01/12/20 20 59551-IYRU SKIN LESIONS, OVER 4 09/15/19 20 94118-QIEB SKIN LESIONS, OVER 4 06/12/19 12 30718-FVSS SKIN LESIONS, OVER 4 01/29/20 12 65307-EVHE SKIN LESIONS, OVER 4 08/28/19 12 47566-XKRP SKIN LESIONS, OVER 4 12/31/19 13 99034-BOMX SKIN LESIONS, OVER 4 10/01/19 13 85335-YVGG SKIN LESIONS, OVER 4 07/01/19 13 88578-THGP SKIN LESIONS, OVER 4 04/15/20 12 18150-SOPZ SKIN LESIONS, OVER 4 10/02/19 15 34323-YNAF SKIN LESIONS, OVER 4 07/02/19 15 72322-MPLB SKIN LESIONS, OVER 4 03/30/20 14 84565-CLYB SKIN LESIONS, OVER 4 12/23/19 14 81940-NLWL SKIN LESIONS, OVER 4 10/14/19 14 91966-NHVS SKIN LESIONS, OVER 4 07/07/19 14 73721-JZGE SKIN LESIONS, OVER 4 03/31/20 13 99782-QTSQ SKIN LESIONS, OVER 4 04/10/20 16 08364-AADC SKIN LESIONS, OVER 4 07/13/19 17 45312-WGOJ SKIN LESIONS, OVER 4 10/13/19 17 79273-UJDO SKIN LESIONS, OVER 4 04/19/20 17 60091-JAUG SKIN LESIONS, OVER 4 01/19/20 17 33405-GLIF SKIN LESIONS, OVER 4 01/06/20 16 66710-VUYK SKIN LESIONS, OVER 4 10/04/19 16 48390-FQMG SKIN LESIONS, OVER 4 07/19/19 16 87561-VAID SKIN LESIONS, OVER 4 01/05/20 15 72425-MGTB SKIN LESIONS, OVER 4 04/19/20 15 48792-KOWV SKIN LESIONS, OVER 4 06/16/19 20 18208-JBFD SKIN LESIONS, OVER 4 03/10/20 19 92877-HAXK SKIN LESIONS, OVER 4 12/10/19 19 75113-MCMD SKIN LESIONS, OVER 4 09/10/19 19 02834-NQHP SKIN LESIONS, OVER 4 06/10/19 19 46432-BDAN SKIN LESIONS, OVER 4 01/25/20 18 92264-LBBG SKIN LESIONS, OVER 4 10/19/19 18 18633-EOCM SKIN LESIONS, OVER 4 07/20/19 18 88516-XREX SKIN LESIONS, 2 TO 4 03/06/20 11 55327-Igxf. Subungual Hematoma 2 49672-Zhhpq Biopsy 0.5cm 03/30/2014 86236-Umaef Biopsy 0.5cm 12/22/2013 Next Appt Details Provider Name:Neel Barroso , 06/09/2024 03:15:00 PM, [address] [place], [address], Insurance Providers Payer Name Payer Address Payer Phone Subscriber Number Group Number Insured Name Patient Relationship to Insured Coverage Start Date Coverage End Date Medicare [employer] [address] [place] [address] [id number] Otoniel Wiley Self - patient is the insured 3 for Life [address] [place] [address] [id number] Otoniel Wiley Self - patient is the insured Medical (General) History Medical History History ICD Code Cholesterol hypertension Keratoma type II diabetes Surgical History Surgery Date(Month/Year) back surgery 2006 knee surgery 2000 shoulder surgery 2000 triple bypass 05-09-2016 dental procedure 12/09/18 teeth extraction 02/12/22 Right Knee replacement 10/15/23 Hospitalization History Reason Date(Month/Year) Patient went to [facility] ER becau se his right foot was crushed in a ladder. 11/2011 Went to [facility] ER for dehydration.
--- OUTSIDE RECORDS SUMMARY | 2024-05-29 10:35 | XMS_ITS | Encounter Summary ---
Author Name [facility] Address [address] [place] [address] Care Team Providers Care Tennis Ball Coverer Hand Name Role Phone STACEY AGGARWAL Primary [facility] [...] STAND YON SELF May 29, [phone] [id number] [phone] Abdullahi SEVERINO PATIENT MEDICARE (WNR) MEDICARE (M) PART B Jul 18, 2012 PART B [id number] Abdullahi SEVERINO PATIENT MEDICARE (WNR) MEDICARE (M) PART B Jul 18, 2012 PART B [id number] Abdullahi SEVERINO PATIENT MEDICARE (WNR) MEDICARE (M) PART B Jul 18, 2012 PART B [id number] [id number] Abdullahi SEVERINO PATIENT MEDICARE (WNR) MEDICARE (M) PART A Dec 19, 2011 PART A [id number] Abdullahi SEVERINO PATIENT MEDICARE (WNR) MEDICARE (M) PART A Dec 19, 2011 PART A [id number] [phone] Abdullahi SEVERINO PATIENT MEDICARE (WNR) MEDICARE (M) PART A Dec 19, 2011 PART A [id number] [phone] Abdullahi SEVERINO PATIENT Selected Encounter This section includes the information on record at [place] for the Encounter. Date/Time Encounter Type Encounter Description Reason Pro vider Source May 28, 2024 09:29 AM Outpatient Encounter ADMIN PAT ACTIVTIES (MASNONCT) IHE Encounter Template Text not used by [place] Plan of Treatment: Future Appointments (+ 6 months) and Future Tests (+/- 45 days) The Plan of Treatment section includes future care activities for the patient from all [place] [facility] This section includes future appointments and future orders which are active, pending or scheduled. Future Appointments This section includes appointments that were scheduled to occur 6 months from the date of the Encounter, up to a maximum of 20 appointments. The data comes from all [facility]. Appointment Date/Time Appointment Type Appointme nt Facility Name Jun 01, 2024 11:30 AM AMBULATORY - MEDICINE [facility] Sep 10, 2024 10:00 AM AMBULATORY - NONE [facility] Oct 30, 2024 10:00 AM AMBULATORY - MEDICINE [facility] Active, Pending, and Scheduled Orders This section includes a listing of several types of active, pending, and scheduled orders, including clinic medications orders, diagnostic test orders, procedure orders and consult orders; where the start date of the order is 45 days before the date of the Encounter or 45 days after the date of theEncounter. The data comes from all [facility]. Test Date/Time Test Type Test Details Facility Name Apr 29, 2024 10:07 AM Consult Order COMMUNITY CARE-MRI Cons Grades 9 Thru 12 Visiting Teacher's Choice [facility] Jun 02, 2024 12:00 AM Laboratory - Chemistry Order HEMOGLOBIN A1C PANEL BLOOD (LAV-BLOOD) SP [facility] Jun 02, 2024 12:00 AM Laboratory - Chemistry Order BASIC METABOLIC PANEL (non-fasting) BLOOD (SST-SERUM) SP [place] [facility] [place] [facility] Social History: Smoking Status (Most [...] Current Smoking Status Comment Facil it Apr 06, 2024 10:00 AM VA-TOBACCO FORMER USER [place] [facility] [place] [facility] Tobacco Use History This section includes a history of the smoking, or tobacco-related health factors, that were collected on or before the date of the Encounter. The data comes from the [place] facility where the Encounter took place. Date/Time Smoking Status/Tobac co Use Comment [place] Apr 06, 2024 10:00 AM VA-TOBACCO QUIT 15 YRS OR MORE [facility] [place] [facility] Apr 05, 2023 11:30 AM VA-TOBACCO FORMER USER [facility] [place] [facility] Apr 05, 2023 11:30 AM VA-TOBACCO QUIT 15 YRS OR MORE [facility] [place] [facility] Dec 28, 2021 09:30 AM VA-TOBACCO FORMER USER [facility] [place] [facility] Dec 28, 2021 09:30 AM VA-TOBACCO QUIT 15 YRS OR MORE [facility] [place] [facility] Dec 02, 2020 09:00 AM VA-TOBACCO FORMER USER [facility] [place] [facility] Dec 02, 2020 09:00 AM VA-TOBACCO QUIT 15 YRS OR MORE [facility] [place] [facility] Aug 18, 2019 03:19 PM VA-TOBACCO FORMER USER [facility] [place] [facility] Aug 18, 2019 03:19 PM VA-TOBACCO QUIT 15 YRS OR MORE [facility] [place] [facility] September 23, 2018 09:58 AM VA-TOBACCO FORMER USER [facility] [place] [facility] September 23, 2018 09:58 AM VA-TOBACCO QUIT 15 YRS OR MORE [place] [facility] [place] [facility] September 30, 2017 09:20 AM QUIT TOBACCO USE > 7 YEARS AGO [facility] Aug 20, 2016 09:17 AM QUIT TOBACCO USE > 7 YEARS AGO [facility] Jun 27, 2016 09:45 AM CURRENT SMOKER Quit 25 years ago [facility] Apr 18, 2015 09:06 AM QUIT TOBACCO USE > 7 YEARS AGO quit [facility] Mar 21, 2005 10:12 AM HISTORY OF SMOKING [facility] Mar 21, 2005 10:12 AM QUIT TOBACCO USE > 7 YEARS AGO [facility] Advance Directives: All historical and current [...] 04, 2019 ADVANCE DIRECTIVE CESAR LUA [facility] Encounter Notes: All associated encounter notes This section contains the clinical notes associated to the Encounter. Date/Time Encounter Note(s) Provider Source May 28, 2024 10:36 AM ADDENDUM: LOCAL TITLE: Addendum STANDARD TITLE: ADDENDUM DATE OF NOTE: MAY 28, 2024@10:36:39 ENTRY DATE: MAY 28, 2024@10:36:40 AUTHOR: ENEIDA WEIR COSIGNER: URGENCY: STATUS: COMPLETED T/C to Vet, he reports having fall 3 weeks ago onto right shoulder from standing. Had right arm/shoulder pain after this incident. Discussed with PCP on 04/29 visit. MRI ordered at that time however consult is still processing. Vet states he fell again on 05/23 getting out of bed striking right shoulder in the same manner as prior. Since this he has had an increase of pain and limited ROM. Vet reports he is unable to lift right arm more than 4 inches, also has limited ROM to hand when not supported by surface. Denies any numbness/tingling to right hand. Vet did go to [facility] ED 05/27 however did not stay to see provider, he left after imaging done for his right shoulder. Below results taken from [facility] Portal: RESULT: Shoulder Min 2 Views Right COMPARISON: Correlation made with chest radiographs 05/12/2015 05/10/2015. FINDINGS: No fracture or dislocation. Moderate glenohumeral joint space narrowing and marginal spurring. Moderate degenerative changes of the AC joint. Old right clavicular fracture, seen on prior. Calcific tendinosis along the superior aspect of the humeral head. Orthopedic anchors overlying the humeral head, seen on prior. IMPRESSION: No acute fracture or osseous abnormality. Results reviewed with Vet. Also reviewed increased symptoms after most recent fall. Vet agreeable to return to ED. Will alert PCP to above. /es/ Eneida REGALADO RN CNL Primary Care RN Signed: 05/28/2024 10:47 Receipt Acknowledged By: 05/29/2024 06:57 /es/ Stacey Aggarwal DNP, SALES REVIEW CLERK-BC, GISELLEL Primary Care Nurse Practitioner === --- Original Document --- 05/28/24 CCC: SCHEDULING ADMINISTRATION: Patient Demographics Patient Name: CARL SEVERINO Patient Primary Phone: [phone] Patient Primary [address]: [address] [place] [address] Patient : 1945 Patient Age: 79 Caller/Recipient Relation to Patient: Self Caller Name: CARL SEVERINO Administrative Administrative Note Reason: Lab / Imaging Results Administrative Note Comments: Manson was in the ER last night because of his R arm not being able to move it. They gave him an X-ray and wanted to know the results. He states he told the ER he was leaving due to it being overly pact and that they would send the results to pcp. thank you IMPORTANT: This note was created by [facility] staff. Please do not alert the staff member by adding them as a signer for future communications. Alerts are not monitored by this user. /skinny/ KENJI ENGLEN1 [facility] Signed: 05/28/2024 09:29 Receipt Acknowledged By: * AWAITING SIGNATURE * BRETT BEAN 05/28/2024 10:47 /es/ Eneida REGALADO RN CNL Primary Care RN [facility]IR [facility] May 28, 2024 09:29 AM ADMINISTRATIVE NOTE: LOCAL TITLE: CCC: SCHEDULING ADMINISTRATION STANDARD TITLE: ADMINISTRATIVE NOTE DATE OF NOTE: MAY 28, 2024@09:29:39 ENTRY DATE: MAY 28, 2024@09:29:39 AUTHOR: KENJI GRECO COSIGNER: URGENCY: STATUS: COMPLETED CCC: SCHEDULING ADMINISTRATION Has ADDENDA Patient Demographics Patient Name: CARL SEVERINO Patient Primary Phone: [phone] Patient Primary [address]: [address] [place] [address] Patient : 1945 Patient Age: 79 Caller/Recipient Relation to Patient: Self Caller Name: CARL SEVERINO Administrative Administrative Note Reason: Lab / Imaging Results Administrative Note Comments: Manson was in the ER last night because of his R arm not being able to move it. They gave him an X-ray and wanted to know the results. He states he told the ER he was leaving due to it being overly pact and that they would send the results to pcp. thank you IMPORTANT: This note was created by [facility] staff. Please do not alert the staff member by adding them as a signer for future communications. Alerts are not monitored by this user. /skinny/ KENJI ENGLEN1 [facility] Signed: 05/28/2024 09:29 Receipt Acknowledged By: 05/29/2024 09:41 /es/ Brett Bean, Health Trustee Of Estate TYPESETTER APPRENTICE,PRIMARY CARE 05/28/2024 10:47 /es/ Eneida Weir MSN RN CNL Primary Care RN 05/28/2024 ADDENDUM STATUS: COMPLETED T/C to Vet, he reports having fall 3 weeks ago onto right shoulder from standing. Had right arm/shoulder pain after this incident. Discussed with PCP on 04/29 visit. MRI ordered at that time however consult is still processing. Vet states he fell again on 05/23 getting out of bed striking right shoulder in the same manner as prior. Since this he has had an increase of pain and limited ROM. Vet reports he is unable to lift right arm more than 4 inches, also has limited ROM to hand when not supported by surface. Denies any numbness/tingling to right hand. Vet did go to [facility] ED 05/27 however did not stay to see provider, he left after imaging done for his right shoulder. Below results taken from [facility] Portal: RESULT: Shoulder Min 2 Views Right COMPARISON: Correlation made with chest radiographs 05/12/2015 05/10/2015. FINDINGS: No fracture or dislocation. Moderate glenohumeral joint space narrowing and marginal spurring. Moderate degenerative changes of the AC joint. Old right clavicular fracture, seen on prior. Calcific tendinosis along the superior aspect of the humeral head. Orthopedic anchors overlying the humeral head, seen on prior. IMPRESSION: No acute fracture or osseous abnormality. Results reviewed with Vet. Also reviewed increased symptoms after most recent fall. Vet agreeable to return to ED. Will alert PCP to above. /es/ Eneida REGALADO RN CNL Primary Care RN Signed: 05/28/2024 10:47 Receipt Acknowledged By: 05/29/2024 06:57 /es/ Stacey Aggarwal DNP, SALES REVIEW CLERK-BC, CNL Primary Care Nurse Practitioner KENJI GRECO [facility]
--- OUTSIDE RECORDS SUMMARY | 2024-05-29 10:35 | XMS_ITS ---
Author Organization [facility] [place] Address [address] [place] [address] Care Team Providers Care Gas Leak Inspector Helper Name Role Phone Luis Aggarwal N.P Primary Care Provider Unav ailNeel Butt Unavailable [phone] Allergies Allergen (clinical drug ingredient) Drug/Non Drug Allergy documented on EMR Reaction Allergy Type Onset Date Status meperidine Demerol rash Drug Allergy Active REASON FOR VISIT Skin Problem Medications Medication SIG (Take, Route, Frequency, Duration) Notes Start Date End Date Status Lantus 100 UNIT/ML Subcutaneous 70 units Active Fish Oil Active Ozempic Active Atorvastatin Calcium 80 MG 1 tablet Orally Once a day Active Aspirin Active Naproxen Not-Taking Diovan Not-Taking Ciclopirox Olamine 0.77 % 1 application Externally Twice a day to skin of feet including between the toes for 30 days Active Actos 15 MG 1 tablet Orally Once a day for 30 day(s) Not-Taking Tricor Not-Taking glyBURIDE Not-Taking NovoLOG 100 UNIT/ML Subcutaneous Active Metformin & Diet Manage Prod Active Trulicity Not-Taking Valsartan 80 MG 1 tablet Orally Once a day Active Metoprolol Succinate Active Social History Tobacco Use: Social History Observation [...] Problem Status W/U Status Risk Notes Problem Essential hypertension ([id number]) Essential hypertension (I10) Active confirmed Vital Signs Blood pressure systolic 148 mm Hg 05/08/20 24 Blood pressure diastolic 60 mm Hg 024 Height 5ft 10 in in 05/08/2024 Weight 240 lbs 05/08/2024 BMI 34.43 kg/m2 05/08/2024 Encounters Encounter Location Date Provider Diagnosis [facility] [address] [address] 05/08/2024 Neelreji Brownier Tinea pedis of both feet B35.3 Assessments Encounter Date Diagnosis (ICD Code) Assessment Notes Treatment Notes Treatment Clinical Notes Section Notes 05/08/2024 Tinea pedis of both feet (ICD-10 - B35.3) Plan Of Treatment Medication Medication Name Sig Start Date Stop Date Notes Ciclopirox Olamine 0.77 % 1 application Externally Twice a day to skin of feet including between the toes for 30 days Next Appt Details Follow Up: prn, Reason: Provider Name:Neel Barroso , 06/09/2024 03:15:00 PM, [address] [place] [address], [phone], Progress Notes * Otoniel WILEYDOB: (79 yo M)Acc No.[id number]:05/08/2024 Progress Notes Patient:?Otoniel WILEY Provider:?Neel Barroso DPM :1945???Age:79 Y???Sex:Male Willi e:05/08/2024 Address:[address] [place] [id number] Pcp:Luis Aggarwal N.P Subjective: * Chief Complaints: * ???Skin Problem * HPI: ???Skin problems:?Nature:?scaling , redness.?Location:?B/L .?Duration:?several days.?Course:?worse.? * ROS:?General/Constitutional:?Nausea?denies.?Vomiting?denies.?Hunger Thirst?denies.?Loss appetite?denies.?Chills?denies.?Fatigue?denies.?Fever?denies.?Night Sweats?denies.?Unexplained weight loss?denies.?Ophthalmologic:?Blurred vision?denies.?Red eye?denies.?HEENTM:?Dentures?denies.?Dizziness?denies.?Glasses/contacts?admits.?Retinopathy?den ies.?Blurred/double vision?denies.?TMJ?denies.?Discharge/drainage?denies.?Implants?denies.?Hard of hearing denies.?Difficulty chewing/swallowing/speaking?denies.?Nose bleeds?denies.?Sore mouth?denies.?Swollen glands?denies.?Respiratory:?On O xygen?denies.?Pneumonia/pleurisy?denies.?Bronchitis?denies.?Emphysema?denies.?Co ughing?denies.?Cough blood?denies.?Shortness of breath?denies.?Wheezing?denies.?Cardiovascular:?Pacemaker?denies.?MVP?denies.?WPW?denies.?CHF?denies.?Heart attack?denies.?Septal defect?denies.?Rapid beat?denies.?Chest pain ?denies.?Atrial Fib.?denies.?Murmur/Palpitations?denies.?Gastrointestinal:?Hemorrhoids?denies.?Stomach/Abdominal pain?denies.?Dark blood stool?denies.?Irritable bowel ?denies.?Constipation?denies.?Diarrhea?denies.?Vomiting?denies.?Hematology:?Swelling?denies.?Bruising??admits, on aspirin.?Bleeding problem??admits, on anticoagulants.?Genitourinary:?Blood urine?denies.?Frequent/Painfu/urination/bladder control?denies.?Kidney stones?denies.?Infection (UTI)?denies.?Nephropathy?denies.?Musculoskeletal:?Hammertoes?admits.?Bunions?denies.?Scoliosis/kyphosis?denies.?Muscle cramps / walking?denies.?Generalized aches and pains?denies.?Weakness?denies.?Integ.:?Day?denies.?Scars?denies.?Corns/calluses?admits.?Ingrown nails?admits.?Painful nails?denies.?Rashes?denies.?Neurologic:?Difficulty sleeping?denies.?Bipolar?denies.?Brain disorder?denies.?Balance t rouble?denies.?Confusion?denies.?Fainting/blackouts?denies.?Headache?denies.?Ismael mors?denies.? * Medical History:? * Surgical History:?back surge ry 2007knee surgery 2000shoulder surgery 2001triple bypass [id number] procedure 12/09/18teeth extraction 02/12/22Right Knee replacement 10/15/23 * Hospitalization/Major Diagno stic Procedure:?Went to [facility] ER for dehydration. 08/17/11atient went to [facility] ER because his right foot was crushed in a ladder. 11/2011 * Family History:?Mother: dece ased, poor circulation, kidney/liver disease, diagnosed with Diabetic - NIDDM, Unspecified essential hypertension.?Father: , poor circulation, diagnosed with Unspecified essential hypertension, Unspecified heart disease.?Siblings: diabetes.? * Social History:?Tobacco Use:?Tobacco Use/Smoking?Are you a:?former smoker ?Additional Findings: Tobacco Non-User?Current non-smoker ?Tobacco use other than smoking?Are you an other tobacco user??No ???Drugs/Alcohol:?Drugs?Have you used drugs other than those for medical reasons in the past 12 months??No ?Alcohol Screen?Did you have a drink containing alcohol in the past year??No ?Points?0 ?Interpretation?Negative ???Miscellaneous:?Caffeine: yes, frequency:, 3-4 cups per day. ?Children: yes, 2. ?Exercise: yes, gardening/yard work, [employer]. ?Marital status: single. 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 * Medications:?TakingOzempic A spirin Atorvastatin Calcium 80 MG Tablet 1 tablet Orally Once a day Fish Oil Lantus 100 UNIT/ML Solution Subcutaneous , Notes to Pharmacist: 70 unitsMetoprolol Succinate Metformin & Diet Manage Prod NovoLOG 100 UNIT/ML Solution Subcutaneous Valsartan 80 MG Tablet 1 tablet Orally Once a day Taking Ozempic Taking Aspirin Taking Atorvastatin Calcium 80 MG Tablet 1 tablet Orally Once a day Taking Fish Oil Taking Lantus 100 UNIT/ML Solution Subcutaneous , Notes to Pharmacist: 70 unitsTaking Metoprolol Succinate Taking Metformin & Diet Manage Prod Taking NovoLOG 100 UNIT/ML Solution Subcutaneous Taking Valsartan 80 MG Tablet 1 tablet Orally Once a day Not-Taking/PRNTrulicity glyBURIDE Diovan Tricor Actos 15 MG Tablet 1 tablet Orally Once a day Naproxen Medication List reviewed and reconciled with the patientNot-Taking/PRN Trulicity Not-Taking/PRN glyBURIDE Not-Taking/PRN Diovan Not-Taking/PRN Tricor Not-Taking/PRN Actos 15 MG Tablet 1 tablet Orally Once a day Not-Taking/PRN Naproxen Medication List reviewed and reconciled with the patient * Allergies:?Demerol: karma[ Allergies Verified] Objective: * Vitals:?Ht: 5ft 10 in, Wt:24 0, BMI: 34.43, Shoe size:9, BP:148/60mm Hg, BS:125, Ht-cm: 177.8 cm, Wt-k.86 kg. * ???Past Orders: ???Lab:HEMOGLOBIN A1C (GLYCO HEMOGLOBIN) (Order Date - 08/21/2022) (Collection Date & Time - 07/21/2022) ? Value Reference Range ?HEMOGLOBIN A1C % (HH) 8.0 * Examination: ???Ophthalmology Referral: ?DIABETES EYE EXAM?Dermatologic: ?SKIN FINDINGS:? Skin shows sign(s) of, erythema, scaling, in a moccasin fashion, no fissure(s) present, B/L.? Assessment: * Assessment: 1.?Tinea pedis of both feet - B35.3 (Primary)???Specify :Acute problem, Uncomplicated (3),Rx drug management (4)??? Plan: * Treatment: * Procedure Codes:? * Preventive Medicine:? ??Counseling:?Discussion:?-13: Office or other outpatient visit for the evaluation and management of an established patient, which required a medically appropriate history and/or examination and LOW level of DECISION MAKING for: 1 STABLE ACUTE UNCOMPLICATED PROBLEM, 2 OR MORE MINOR PROBLEMS, OR 1 STABLE CHRONIC PROBLEM, THAT POSE(S) A LOW RISK FOR MORBIDITY/MORTALITY. The visit on the day of the encounter encompassed interpreting the data and educating the patient as to the nature of their condition, treatment options available according to their individual PMH, meds, allergies, and overall health/living conditions, as well as any potential risks or complications that may occur from a failure to adhere to, and participate in, the recommended course of therapy. The discussion included a complete verbal, and/or written explanation of the examination results, any x-rays taken, the proposed diagnosis, and outline of the treatment plan. A schedule for future care needs was also explained. The patient verbalized an understanding of the instructions at this time and agreed to be an active participant in their treatment. If the patient should think of any questions or concerns after the visit, I have encouraged the patient to call the office.?Tinea Pedis:?The patient was counseled on the diagnosis, potential etiologies, and treatment options for their skin condition. We discussed the risks and benefits of each option from performing no treatment, to utilizing OTC topical skin creams, prescription topical creams, customized compounded topical medications, and, if necessary, to utilize oral antifungal therapy. We discussed the advantages and disadvantages of each possible treatment and importance for adherence to all the recommended therapies for optimum success and avoid potential complications such as open sore/infection/possible hospitalization. We discussed the potential effectiveness of each topical preparation as well as each ones possible side effects and/or patient medication interactions if oral therapy is selected. Patient questions re: the advantages and disadvantages of each treatment choice, medication use/dosage, successful outcomes, and application consistency were reviewed and the patient verbalized that all answers were clearly understood. The patient was told they can help alleviate symptoms by utilizing moisture absorbant innersoles with activated charcoal and baking soda, applying antifungal sprays daily, aerating toe web spaces at night by putting cotton or lambs wool between the toes, alternating shoe gear daily if possible so they can dry out, changing socks at least once during the day, wearing well-ventilated shoes or sandals. The patient has decided to apply antifungal skin creams to their feet as directed. Rx was sent to their pharmacy at the time of visit.? ??Screening/Special Tests:?Fall Risk?Screening:?No falls in the past year ?FALLS: Screening for Future Fall Risk?Have you had any falls with injury in the past year??No * Follow Up:?prn * Images: * Sign off status: Completed true * Provider:?Neel Barroso DPM Date:?2023 Generated for Suri davis/Candido/Amy on:?05/29/2024 10:12 AM EST History and Physical Notes * HPI (History of Present Illness) Category Sub-Category Detail Notes Category Not es Skin problems Nature: scaling , redness Location: B/L Duration: several days Course: worse Examination Category Sub-Category Detail Notes Category Not es Dermatologic SKIN FINDINGS: Skin shows sign( s) of, erythema, scaling, in a moccasin fashion, no fissure(s) present, B/L Ophthalmology Referral DIABETES EYE EXAM Procedu re Performed:: Yes ?Date of Exam Performed: 05/22/2023 Diabetic Retinopathy Screening:: Yes Retinal Screening Performed:: Yes Findings of Diabetic Eye Exam:: no retin opathy
--- OUTSIDE RECORDS SUMMARY | 2024-05-29 10:35 | XMS_ITS ---
Author Organization [facility] Address [address] [place] [address] Care Team Providers Care Car Varnisher Name Role Phone Luis Aggarwal N.P Primary Care Provider Unav ailNeel Butt Unavailable [phone] Allergies Allergen (clinical drug ingredient) Drug/Non Drug Allergy documented on EMR Reaction Allergy Type Onset Date Status meperidine Demerol rash Drug Allergy Active REASON FOR VISIT At Risk Footcare Medications Medication SIG (Take, Route, Frequency, Duration) Notes Start Date End Date Status Actos 15 MG 1 tablet Orally Once a day for 30 day(s) Not-Taking Naproxen Not-Taking glyBURIDE Not-Taking Diovan Not-Taking Tricor Not-Taking Metoprolol Succinate Active Trulicity Not-Taking Metformin & Diet Manage Prod Active NovoLOG 100 UNIT/ML Subcutaneous Active Valsartan 80 MG 1 tablet Orally Once a day Active Atorvastatin Calcium 80 MG 1 tablet Orally Once a day Active Fish Oil Active Lantus 100 UNIT/ML Subcutaneous 70 units Active Ozempic Active Aspirin Active Social History Tobacco Use: Social History [...] Are you an other tobacco user? No Vital Signs Blood pressure systolic 148 mm Hg 03/13/20 24 Blood pressure diastolic 65 mm Hg 024 Height 5ft 10 in in 03/13/2024 Weight 240 lbs 03/13/2024 BMI 34.43 kg/m2 03/13/2024 Procedures Procedure Date Ordered Date Performed Result Body Sit e 21023-QQGLRQM NAIL, 6 OR MORE 03/13/2024 N/A 19268-TCBF SKIN LESIONS, OVER 4 03/13/2024 N/A Encounters Encounter Location Date Provider Diagnosis [facility] [address] [address] 03/13/2024 Neel Barroso Type 1 diabetes mellitus with diabetic polyneuropathy E10.42 and Tinea unguium B35.1 Assessments Encounter Date Diagnosis (ICD Code) Assessment Notes Treatment Notes Treatment Clinical Notes Section Notes 03/13/2024 Type 1 diabetes mellitus with diabetic polyneuropathy (ICD-10 - E10.42) 03/13/2024 Tinea unguium (ICD-10 - B35.1) Plan Of Treatment Pending Test Test Name Order Date 39750-[id number] NAIL, 6 OR MORE 03/13/2024 01474-AFPH SKIN LESIONS, OVER 4 03/13/20 24 Next Appt Details Follow Up: prn, Reason: Provider Name:Neel Barroso , 06/09/2024 03:15:00 PM, [address] [place] [address], [place], [address], Procedure Notes * Category Sub-Category Detail Notes Debride Nail 6-10 Nail debridement Performance o f this nail treatment by a nonprofessional would put this patients foot and overall health at risk. Therefore, nail debridement was performed extensively to reduce/remove overall nail length, girth, thickness, subungual debris, and necrotic tissue, by manual and/or electrical means through the use of a nail nipper and/or dremel-type head bone grinder, to a more viable healthy nail plate or bed tissue 6-10. Silver nitrate used for any petechial bleeding as necessary. Definitive antifungal treatment options have been reviewed and discussed with the patient. The patient chooses, no pharmaceutical tx - 80638 Keratoma Treatment Parring or Cutting o f Benign Hyperkeratotic Lesion(s) (-57) More than 4 Lesions - The Benign hyperkeratotic lesions, as described above were pared, and/or cut utilizing a sterile 15 blade, tissue nippers, and/or dremel - 75835 Progress Notes * Otoniel WILEY JDOB: [birth year] (79 yo M)Acc No.[id number]:03/13/2024 Progress Note Patient:?Otoniel Wiley Provider:?Neel Barroso DPM :1945???Age:79 Y???Sex:Male Willi e:03/13/2024 Address:[address] [place], [place] [id number] Pcp:Luis Aggarwal N.P Subjective: * Chief Complaints: * ???At Risk Footcare * HPI: ???At Risk footcare:?Pt States Last PCP Visit:?Date?01/02/2024 States has an appt with PCP soon - 03/17 * ROS:?General/Constitutional:?Nausea?denies.?Vomiting?denies.?Hunger Thirst?denies.?Loss appetite?denies.?Chills?denies.?Fatigue?denies.?Fever?denies.?Night Sweats?denies.?Unexplained weight loss?denies.?Ophthalmologic:?Blurred vision?denies.?Red eye?denies.?HEENTM:?Dentures?denies.?Dizziness?denies.?Glasses/contacts?admits.?Retinopathy?de nies.?Blurred/double vision?denies.?TMJ?denies.?Discharge/drainage?denies.?Implants?denies.?Hard of hearing denies.?Difficulty chewing/swallowing/speaking?denies.?Nose bleeds?denies.?Sore mouth?denies.?Swollen glands?denies.?Respiratory:?On Oxygen?denies.?Pneumonia/pleurisy?denies.?Bronchitis?denies.?Emphysema?denies.?C oughing?denies.?Cough blood?denies.?Shortness of breath?denies.?Wheezing?denies.?Cardiovascular:?Pacemaker?denies.?MVP?denies.?WPW?denies.?CHF?denies.?Heart attack?denies.?Septal defect?denies.?Rapid beat?denies.?Chest pain ?denies.?Atrial Fib.?denies.?Murmur/Palpitations?denies.?Gastrointestinal:?Hemorrhoids?denies.?Stomach/Abdominal pain?denies.?Dark blood stool?denies.?Irritable bowel ?denies.?Constipation?denies.?Diarrhea?denies.?Vomiting?denies.?Hematology:?Swelling?denies.?Bruising??admits, on aspirin.?Bleeding problem??admits, on anticoagulants.?Genitourinary:?Blood urine?denies.?Frequent/Painfu/urination/bladder control?denies.?Kidney stones?denies.?Infection (UTI)?denies.?Nephropathy?denies.?Musculoskeletal:?Hammertoes?admits.?Bunions?denies.?Scoliosis/kyphosis?denies.?Muscle cramps / walking?denies.?Generalized aches and pains?denies.?Weakness?denies.?Integ.:?Day?denies.?Scars?denies.?Corns/calluses?admits.?Ingrown nails?admits.?Painful nails?denies.?Rashes?denies.?Neurologic:?Difficulty sleeping?denies.?Bipolar?denies.?Brain disorder?denies.?Balance trouble?denies.?Confusion?denies.?Fainting/blackouts?denies.?Headache?denies.?Tr emors?denies.? * Medical History:? * Surgical History:?back surge ry 2007knee surgery 2000shoulder surgery 2001triple bypass [id number] procedure 12/09/18teeth extraction 02/12/22Right Knee replacement 10/15/23 * Hospitalization/Major Diagno stic Procedure:?Went to [facility] ER for dehydration. 08/17/11atient went to [facility] because his right foot was crushed [...] MG Tablet 1 tablet Orally Once a dayFish Oil Lantus 100 UNIT/ML Solution Subcutaneous , Notes: 70 unitsMetoprolol Succinate Metformin & Diet Manage Prod NovoLOG 100 UNIT/ML Solution Subcutaneous Valsartan 80 MG Tablet 1 tablet Orally Once a dayTaking Ozempic Taking Aspirin Taking Atorvastatin Calcium 80 MG Tablet 1 tablet Orally Once a dayTaking Fish Oil Taking Lantus 100 UNIT/ML Solution Subcutaneous , Notes: 70 unitsTaking Metoprolol Succinate Taking Metformin & Diet Manage Prod Taking NovoLOG 100 UNIT/ML Solution Subcutaneous Taking Valsartan 80 MG Tablet 1 tablet Orally Once a dayNot-Taking/PRNTrulicity glyBURIDE Diovan Tricor Actos 15 MG Tablet 1 tablet Orally Once a dayNaproxen Medication List reviewed and reconciled with the patientNot-Taking/PRN Trulicity Not-Taking/PRN glyBURIDE Not-Taking/PRN Diovan Not-Taking/PRN Tricor Not-Taking/PRN Actos 15 MG Tablet 1 tablet Orally Once a dayNot-Taking/PRN Naproxen Medication List reviewed and reconciled with the patient * Allergies:?Jerzy parada[ Allergies Verified] Objective: * Vitals:?Ht: 5ft 10 in, Wt:24 0, BMI: 34.43, Shoe size:9, BP:148/65 mm Hg, Ht-cm: 177.8 cm, Wt-k.86 kg. * Examination: ???Neurological: ?SENSORY:?Neurological exam demonstrates, reduced light touch sensation, reduced sharp/dull discrimination , reduced vibration sensation, B/L, 5.07 monofilament test performed at plantar aspects of 5 varied sites per foot, shows sensation, reduced, B/L, Pt still relates, tingling, pins and needles sensation, paresthesia, Forefoot, Left.?Nails: ?NAILS are:?Elongated, overgrown, dystrophic, lytic, greater than 3mm thick, discolored and friable with crumbly malodorous subungual debris, 1-5 B/L.?Dermatologic: ?SKIN FINDINGS:?Skin exam reveals Keratotic lesion(s) located at,?Medial, IPJ, TA, Medial plantar, IPJ, T5, SUB MTH (s),1,B/L,SUB MTH (s),5 B/L,?Heel(s),B/L.? Assessment: * Assessment: 1.?Type 1 diabetes mellitus with diabetic polyneuropathy - E10.42?2.?Tinea unguium - B35.1? Plan: * Treatment: * Procedures:?Debride Nail 6-10:?Nail debridement?Performance of this nail treatment by a nonprofessional would put this patients foot and overall health at risk. Therefore, nail debridement was performed extensively to reduce/remove overall nail length, girth, thickness, subungual debris, and necrotic tissue, by manual and/or electrical means through the use of a nail nipper and/or dremel-type head bone grinder, to a more viable healthy nail plate or bed tissue 6-10. Silver nitrate used for any petechial bleeding as necessary. Definitive antifungal treatment options have been reviewed and discussed with the patient. The patient chooses, no pharmaceutical tx - 78293.?Keratoma Treatment:?Parring or Cutting of Benign Hyperkeratotic Lesion(s)?(-57) More than 4 Lesions - The Benign hyperkeratotic lesions, as described above were pared, and/or cut utilizing a sterile 15 blade, tissue nippers, and/or dremel - 07715.? * Procedure Codes:?83451 DEBRI DE NAIL, 6 OR MORE, Modifiers: XS 66162 TRIM SKIN LESIONS, OVER 4, Modifiers: XS * Follow Up:?prn * Images: * Sign off status: Completed true * Provider:?Neel Barroso DPM Date:?2023 Generated for Suri davis/Candido/Francineitting on:?05/29/2024 10:12 AM EST History and Physical Notes * HPI (History of Present Illness) Category Sub-Category Detail Notes Category Not es At Risk footcare Pt States Last PCP Visit: Date: 01/02/2024 States has an appt with PCP soon - 03/17 Examination Category Sub-Category Detail Notes Category Not es Neurological SENSORY: Neurological exa m demonstrates, reduced light touch sensation, reduced sharp/dull discrimination , reduced vibration sensation, B/L, 5.07 monofilament test performed at plantar aspects of 5 varied sites per foot, shows sensation, reduced, B/L, Pt still relates, tingling, pins and needles sensation, paresthesia, Forefoot, Left Dermatologic SKIN FINDINGS: Skin exam reveal s Keratotic lesion(s) located at, Medial, IPJ, TA, Medial plantar, IPJ, T5, SUB MTH (s),1,B/L,SUB MTH (s),5 B/L, Heel(s),B/L Nails NAILS are: Elongated, overg rown, dystrophic, lytic, greater than 3mm thick, discolored and friable with crumbly malodorous subungual debris, 1-5 B/L
--- OUTSIDE RECORDS SUMMARY | 2024-05-29 10:35 | XMS_ITS | Encounter Summary ---
Author Name [facility] [place] [facility] [place] Address [address] [place] [address] Care Team Providers Care Fire Inspector Name Role Phone STACEY HORTON Primary [...] STAND YON SELF May 29, [phone] [id number] [phone] Abdullahi SEVERINO PATIENT MEDICARE (WNR) MEDICARE (M) PART B Jul 18, 2012 PART B [id number] Abdullahi SEVERINO PATIENT MEDICARE (WNR) MEDICARE (M) PART B Jul 18, 2012 PART B [id number] Abdullahi SEVERINO PATIENT MEDICARE (WNR) MEDICARE (M) PART B Jul 18, 2012 PART B [id number] [phone] Abdullahi SEVERINO PATIENT MEDICARE (WNR) MEDICARE (M) PART A Dec 19, 2011 PART A [id number] Abdullahi SEVERINO PATIENT MEDICARE (WNR) MEDICARE (M) PART A Dec 19, 2011 PART A [id number] Abdullahi SEVERINO PATIENT MEDICARE (WNR) MEDICARE (M) PART A Dec 19, 2011 PART A [id number] [phone] Abdullahi SEVERINO PATIENT Selected Encounter This section includes the information on record at [place] for the Encounter. Date/Time Encounter Type Encounter Description Reason Pro vider Source May 27, 2024 09:48 AM Outpatient Encounter TELEPHONE TRIAGE IHE Encounter Template Text not used by [place] Plan of Treatment: Future Appointments (+ 6 months) and Future Tests (+/- 45 days) The Plan of Treatment section includes future care activities for the patient from all [place] [facility] This section includes future appointments and future orders which are active, pending or scheduled. Future Appointments This section includes appointments that were scheduled to occur 6 months from the date of the Encounter, up to a maximum of 20 appointments. The data comes from all [facility]. Appointment Date/Time Appointment Type Appointme nt Facility Name Jun 01, 2024 11:30 AM AMBULATORY - MEDICINE [facility] Sep 10, 2024 10:00 AM AMBULATORY - NONE [facility] Oct 30, 2024 10:00 AM AMBULATORY - MEDICINE [facility] Active, Pending, and Scheduled Orders This section includes a listing of several types of active, pending, and scheduled orders, including clinic medications orders, diagnostic test orders, procedure orders and consult orders; where the start date of the order is 45 days before the date of the Encounter or 45 days after the date of theEncounter. The data comes from all [facility]. Test Date/Time Test Type Test Details Facility Name Apr 29, 2024 10:07 AM Consult Order COMMUNITY CARE-MRI Cons Fellmongering Machine Operator's Choice [facility] Jun 02, 2024 12:00 AM Laboratory - Chemistry Order BASIC METABOLIC PANEL (non-fasting) BLOOD (SST-SERUM) SP [facility] Jun 02, 2024 12:00 AM Laboratory - Chemistry Order HEMOGLOBIN A1C PANEL BLOOD (LAV-BLOOD) SP [place] [facility] [place] [facility] Social History: Smoking Status (Most current) and Tobacco Use (All prior to encounter date) This section includes the most current, and the historical, smoking and tobacco- related health factors from the [place] facility where the Encounter took place. Current Smoking Status This section includes the most current smoking, or tobacco-related health factor, from the [place] facility where the Encounter took place. Date/Time Current Smoking Status Comment Facil it Apr 06, 2024 10:00 AM VA-TOBACCO FORMER USER [place] [facility] Tobacco Use History This section includes a history of the smoking, or tobacco-related health factors, that were collected on or before the date of the Encounter. The data comes from the [place] facility where the Encounter took place. Date/Time Smoking Status/Tobac co Use Comment Facility Apr 06, 2024 10:00 AM VA-TOBACCO QUIT 15 YRS OR MORE [place] [facility] [place] [facility] Apr 05, 2023 11:30 AM VA-TOBACCO FORMER USER [place] [facility] [place] [facility] Apr 05, 2023 11:30 AM VA-TOBACCO QUIT 15 YRS OR MORE [facility] [place] [facility] Dec 28, 2021 09:30 AM VA-TOBACCO FORMER USER [place] [facility] [place] [facility] Dec 28, 2021 09:30 AM VA-TOBACCO QUIT 15 YRS OR MORE [facility] [place] [facility] Dec 02, 2020 09:00 AM VA-TOBACCO FORMER USER [place] [facility] [place] [facility] Dec 02, 2020 09:00 AM VA-TOBACCO QUIT 15 YRS OR MORE [place] [facility] [place] [facility] Aug 18, 2019 03:19 PM VA-TOBACCO FORMER USER [place] [facility] [place] [facility] Aug 18, 2019 03:19 PM VA-TOBACCO QUIT 15 YRS OR MORE [place] [facility] [place] [facility] September 23, 2018 09:58 AM VA-TOBACCO FORMER USER [facility] [place] [facility] September 23, 2018 09:58 AM VA-TOBACCO QUIT 15 YRS OR MORE [place] [facility] [place] [facility] September 30, 2017 09:20 AM QUIT TOBACCO USE > 7 YEARS AGO [facility] Aug 20, 2016 09:17 AM QUIT TOBACCO USE > 7 YEARS AGO quit 1991 [facility] Jun 27, 2016 09:45 AM CURRENT SMOKER Quit 25 years ago [facility] Apr 18, 2015 09:06 AM QUIT [...] ALL of a patient's completed or amended [place] Advance and Rescinded Directives. The entries below indicate that a directive exists for the patient, but an actual copy is not included with this document. The data comes from all [place] facilities. Date Advance Directives Provider Source Feb 04, 2019 ADVANCE DIRECTIVE CESAR LUA [facility] Encounter Notes: All associated encounter notes This section contains the clinical notes associated to the Encounter. Date/Time Encounter Note(s) Provider Source May 27, 2024 09:48 AM RN PROGRESS NOTE: LOCAL TITLE: CCC: CLINICAL TRIAGE STANDARD TITLE: RN PROGRESS NOTE DATE OF NOTE: MAY 27, 2024@09:48:50 ENTRY DATE: MAY 27, 2024@09:48:50 AUTHOR: KUN CORRIGAN COSIGNER: URGENCY: STATUS: COMPLETED Patient Demographics Patient Name: CARL SEVERINO Patient Primary Address: [address] [place] [id number] Patient Primary Phone: [phone] Patient : 1945 Patient Age: 79 Caller/Recipient Relation to Patient: Self Caller Name: CARL SEVERINO Emergency Contact: HILL GALLEGOS Triage Summary Conducted triage/discussed symptoms Nursing Plan and Disposition Other course(s) of action Generated msg to PACT/Provider Nurse Summary Nurse Summary: Patient calls with concerns of worsening right shoulder pain. Has had pain approx. 6months. This morning extremely worse, cannot move shoulder. Patient in agreement to go to [facility] ER. _ Clinical Contact Center Codes Clinic/Location: V1 CWM PHONE CCC RN IMPORTANT: This note was created by [facility] Clinical Contact Center staff. Please do not alert the staff member by adding them as a signer for future communications. Alerts are not monitored by this user. /skinny/ KUN NOGUEIRA,RN CLINICAL CONTACT CENTER RN Signed: 05/27/2024 09:48 Receipt Acknowledged By: 05/29/2024 09:55 /es/ Brett Biggs, [facility] Retail Marketing Specialist STRUCTURAL WELDER,PRIMARY CARE 05/27/2024 09:53 /es/ Radha REGALADO RN CNL Primary Care RN KUN CORRIGAN [facility]
--- OUTSIDE RECORDS SUMMARY | 2024-05-29 10:35 | XMS_ITS | Continuity of Care Document ---
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 Name Role Phone Jasen SINGH, Luis Mcdaniel Primary Care Omidi zay Encounter [facility] [id number] Date(s): 05/27/24 - 05/28/[address] [address]- Discharge Disposition: A-D/C Walkout Attending Physician: Not on Staff, Attending MD Admitting Physician: Not on Staff, Admitting MD Referring Physician: Not on Staff, Referring MD Encounter Type: Disch ES Allergies, Adverse Reactions, Alerts Substance Criticality Severity Reaction Reaction Severity Status Demerol HCl Active Medications acetaminophen 325 mg oral tablet 650 mg, By Mouth, Every 6 hours, May take OTC not to exceed 3000 mg/day, Refills 0, Maintenance, 10/09/23 11:02:00 AM EDT, Partial fill upon patient request if the prescription is for a schedule II opioid drug. Start Date: 10/09/23 Status: Ordered Repeat number: 1 amLODIPine 5 mg oral tablet 1 tablet = 5 mg, By Mouth, Daily, # 30 tablet, 0 Refills, Maintenance, 06/13/23 8:52:00 AM EST, Tablet, Partial fill upon patient request if the prescription is for a schedule II opioid drug. Start Date: 06/13/23 Status: Ordered Quantity: 30.0 Unit: tablet Repeat number: 1 atorvastatin 80 mg oral tablet = 80 mg, By Mouth, Daily at bedtime, # 30 tablet, 1 Refills, Maintenance, 05/14/15 12:13:49 PM EST,Tablet Start Date: 05/14/15 Status: Ordered Quantity: 30.0 Unit: tablet Repeat number: 2 CeleBREX 200 mg oral capsule 1 capsule = 200 mg, By Mouth, Daily, 0 Refills, Maintenance, 01/08/24 9:22:00 AM EDT, Partial fill upon patient request if the prescription is for a schedule II opioid drug. Start Date: 01/08/24 Status: Ordered Repeat number: 1 docusate sodium 100 mg oral capsule 1 capsule = 100 mg, By Mouth, 2 times a day, PRN as needed for constipation, # 60 capsule, 0 Refills, Maintenance, 01/09/24 8:43:00 AM EDT, Capsule, [facility], Partial fill upon patientrequest if the prescription is for a schedule II opioid drug., 177, cm, 01/09/24 8:06:00 EDT, Height, 102.4, kg, 01/08/24 17:31:00 EDT, Dry Weight Start Date: 01/09/24 Stop Date: 02/08/24 Status: Ordered Quantity: 60.0 Unit: capsule Repeat number: 1 Eliquis 2.5 mg oral tablet 1 tablet = 2.5 mg, By Mouth, 2 times a day, # 60 tablet, 0 Refills, Maintenance, 01/09/24 8:47:00 AMEDT, Tablet, [facility], Partial fill upon patient request if the prescription is fora schedule II opioid drug., 177, cm, 01/09/24 8:06:00 EDT, Height, 102.4, kg, 01/08/24 17:31:00 EDT, Dry Weight Start Date: 01/09/24 Stop Date: 02/08/24 Status: Ordered Quantity: 60.0 Unit: tablet Repeat number: 1 Eliquis 2.5 mg oral tablet 1 tablet = 2.5 mg, By Mouth, 2 times a day, # 28 tablet, 0 Refills, Maintenance, 01/09/24 10:27:00 AM EDT, Tablet, [facility], Partial fill upon patient request if the prescription is for a schedule II opioid drug., 177, cm, 01/09/24 8:06:00 EDT, Height, 102.4, kg, 01/08/24 17:31:00 EDT, Dry Weight Start Date: 01/09/24 Stop Date: 01/23/24 Status: Ordered Quantity: 28.0 Unit: tablet Repeat number: 1 HumuLIN R MorPen (Concentrated) human recombinant 500 units/mL subcutaneous solution 80 units in am 80 units lunch and 7O units at dinner, 0 Refills, Maintenance, 10/02/23 9:11:00 AM EDT, Partial fill upon patient request if the prescription is for a schedule II opioid drug. Start Date: 10/02/23 Status: Ordered Repeat number: 1 metFORMIN 500 mg oral tablet 2 each = 1,000 mg, By Mouth, 2 times a day before breakfast and dinne, # 60 tablet, 1 Refills, Maintenance, 05/14/15 12:13:53 PM EST, Tablet Start Date: 05/14/15 Status: Ordered Quantity: 60.0 Unit: tablet Repeat number: 2 Metoprolol Succinate ER 25 mg oral tablet, extended release 1 tablet = 25 mg, By Mouth, Daily, # 30 tablet, 0 Refills, Maintenance, 06/13/23 8:52:00 AM EST, ER Tablet, Partial fill upon patient request if the prescription is for a schedule II opioid drug. Start Date: 06/13/23 Status: Ordered Quantity: 30.0 Unit: tablet Repeat number: 1 MiraLax Powder 1 pack/packet = 17 Gm, By Mouth, Daily, PRN Constipation, 0 Refills, Maintenance, 10/09/23 11:02:00 AM EDT, Powder, Partial fill upon patient request if the prescription is for a schedule II opioid drug. Start Date: 10/09/23 Status: Ordered Repeat number: 1 Ozempic (1 mg dose) 4 mg/3 mL subcutaneous solution = 1 mg, Subcutaneous Injection, Every Saturday, # 3 mL, 0 Refills, Maintenance, 10/02/23 9:12:00 AM EDT, Solution, Partial fill upon patient request if the prescription is for a schedule II opioid drug. Start Date: 10/02/23 Status: Ordered Quantity: 3.0 Unit: mL Repeat number: 1 pantoprazole 40 mg oral delayed release tablet = 40 mg, By Mouth, Daily, # 30 tablet, 0 Refills, Maintenance, 01/09/24 8:43:00 AM EDT, EC Tablet, 177, cm, 01/09/24 8:06:00 EDT, Height, 102.4, kg, 01/08/24 17:31:00 EDT, Dry Weight Start Date: 01/09/24 Stop Date: 02/08/24 Status: Ordered Quantity: 30.0 Unit: tablet Repeat number: 1 spironolactone 25 mg oral tablet 25 mg, 1, tablet, By Mouth, Daily, # 30 tablet, Refills 0, Maintenance, 06/13/23 8:52:00 AM EST, Partial fill upon patient request if the prescription is for a schedule II opioid drug. Start Date: 06/13/23 Status: Ordered Quantity: 30.0 Unit: tablet Repeat number: 1 Problem List Condition Confirmation Course Effective Dates Status H ealth Status Informant CAD (coronary artery disease) Confirmed Active HLD (hyperlipidemia) Confirmed Active HTN (hypertension) Confirmed Active Obese class I Confirmed Active JONAS on CPAP Confirmed Active Primary osteoarthritis of right knee Confirmed Active T2DM (type 2 diabetes mellitus) Confirmed Active Results Radiology Reports * Exam Date Time Procedure Performing Provider Status 05/27/24 11:46 PM Shoulder Min 2 Views Right Gibson , Tayl or; Auth (Verified) Notes: (Shoulder Min 2 Views Right) Reason For Exam: with Pain;Trauma RESULT: Shoulder Min 2 Views Right Shoulder Min 2 Views Right, 2 views Right shoulder pain after fall couple weeks ago; Reason: Trauma; with Pain; Clinical Question(s): Fracture COMPARISON: Correlation made with chest radiographs 05/12/2015 05/10/2015. FINDINGS: No fracture or dislocation. Moderate glenohumeral joint space narrowing and marginal spurring. Moderate degenerative changes of the AC joint. Old right clavicular fracture, seen on prior. Calcific tendinosis along the superior aspect of the humeral head. Orthopedic anchors overlying the humeral head, seen on prior. IMPRESSION: No acute fracture or osseous abnormality. I have personally reviewed the images and I agree with this report. WSN: [id number] Ordering Physician: Rachael Calderon Dictated By: Shay Soler MD Dictated Date/Time: 05/27/24 11:55 p Reviewed By: Chi Mendez MD Signed By: Chi Mendez MD Signed Date/Time: 05/28/24 0:00 am Transcribed By: ZAINAB Transcribed Date/Time: 05/27/24 11:53 pm Vital Signs Most recent to oldest [Reference Range]: 1 2 3 Height 178 cm (05/27/24 9:07 PM) 178 cm (05/27/24 4:15 PM) Weight 105 kg (05/27/24 9:07 PM) 105 kg (05/27/24 4:15 PM) Oxygen Saturation [94-100 %] 98 % (05/27/24 8:09 PM) 100 % (05/27/24 4:15 PM) 99 % (05/27/24 4:11 PM) Pulse Rate [55-90 bpm] 65 bpm (05/27/24 4:15 PM) 88 bpm (05/27/24 4:11 PM) Body Mass Index [18.5-24.99 kg/m2] 33.14 kg/m2 *>HHI* (05/27/24 4:15 PM) Blood Pressure [90-138/55-84 mm Hg] 145/62mm Hg *H* (05/27/24 8:09 PM) 170/72mm Hg *H* (05/27/24 4:15 PM) Respiratory Rate [16-30 br/min] 20 br/min (05/27/24 8:09 PM) 18 br/min (05/27/24 4:15 PM) Temperature [96.8-100.4 DegF] 98.7 DegF (05/27/24 8:09 PM) 98.9 DegF (05/27/24 4:15 PM) Mode of Delivery (Oxygen) Room air (05/27/24 8:09 PM) Room air (05/27/24 4:15 PM) Room air (05/27/24 4:11 PM) Blood pressure sites Arm, left (05/27/24 8:09 PM) Arm, right (05/27/24 4:15 PM) Temperature Route Oral (05/27/24 8:09 PM) Oral (05/27/24 4:15 PM) Dry Weight 105 kg (05/27/24 9:07 PM) 105 kg (05/27/24 4:15 PM) Weight Obtained Via Patient/family state d (05/27/24 4:15 PM) Dry Weight Obtained Via Patient/family s tated (05/27/24 4:15 PM) Social History Social History Type Response Smoking Status Former smoker, quit more than 30 days ago entered on: 06/13/23 Sex Sex Representation Male (finding) Patient Care team information Care Team Personnel Name: Charley Frausto RN Position: [facility] RN Member Role: Primary Care Nurse Name: Shekhar Allen Jr, RN Position: [facility] ED RN W/OE and Tasks Member Role: Primary Care Nurse Name: Arsen Josue Position: [facility] Outreach Member Role: Lifetime Consulting Physician Name: Cheri Feliciano RN Position: [facility] AMB Nurse Member Role: Primary Care Nurse Name: Jasen SERVICE ORDER CLERK, Luis Mcdaniel Position: Reference Physician Member Role: PCP Address: [address] [place] [id number]: Care Team Related Persons Name: HILL GALLEGOS Name: HILL GALLEGOS Insurance Providers Guarantor name: CARL SEVERINO Health Plan Information #: 1 Payer: [employer] Member Number: [id number] Policy Number: NA Group Number: NA Health Plan Information #: 2 Payer: [employer] Member Number: [id number] Policy Number: NA Group Number: NA
--- NOTE | 2024-05-29 11:07 | ED_ITS ---
HPI - Extremity Problem General Chief complaint: Extremity Injury, Upper Stated complaint: shoulder inj / fall Time Seen by Provider: 05/29/24 10:15 Source: patient Mode of arrival: ambulatory Limitations: no limitations History of Present Illness ED Provider: KYLE Grubbs HPI Narrative: This is a 79-year-old male re presenting to the emergency department were right shoulder pain he was seen at [facility] on 05/27/2024 for right shoulder pain. He reports he fell twice within the past month and since his falls he has been having right shoulder pain. He left prior to his results coming back for his right shoulder x-ray. He reports when he fell he has never hit his head or lost consciousness. He reports pain to right shoulders worse with range of motion better at rest. It is worse if he tries to move his shoulder above his head and he feels like he just can not do it due to severe pain. He rates his pain a 12/10. Never had pain like this before. No history of right shoulder surgery. No numbness or tingling. [facility] for an [facility]. Denies chest pain, shortness of breath, headache, vision changes, dizziness, weakness Related Data Home Medications ?Medication ?Instructions ?Recorded ?Confirmed insulin glargine 100 unit/mL (3 75 unit subcut BID 03/01/21 03/01/21 mL) subcutaneous pen (Lantus Solostar U-100 Insulin) Allergies Allergy/AdvReac Type Severity Reaction Status Date / Time meperidine Allergy Mild UNKNOWN Verified 05/29/24 10:01 From DEMEROL Allergy Unknown RASH Uncoded 04/03/21 09:58 Review of Systems Review of Systems: Yes all other systems are reviewed and are negative PMFSH Past Medical History Attestation statement: The following information was validated with the patient. Source: old records reviewed and nursing notes reviewed Social History Social History Advance Directives: Yes Advance Directives Information Provided: No Advance Directives on File: No Physical Exam Vital Signs: Vital Signs: Last Vital Signs Temp 98.6 F 05/29/24 11:11 Pulse 68 05/29/24 11:11 Resp 16 05/29/24 11:11 BP 145/58 H 05/29/24 11:11 Pulse Ox 98 05/29/24 11:11 O2 Del Method Room Air 05/29/24 11:11 BMI result Body Mass Index 35.4 vss Appearance: Alert.? Oriented X3.? No acute distress.? Head: Normocephalic, atraumatic, no step-offs or deformities Eyes: Pupils equal, round and reactive to light.? Neck: Normal inspection.? Neck supple.? CVS: Normal heart rate and rhythm.? Pulses normal.? Respiratory: No respiratory distress.? Breath sounds normal.? Abdomen: Soft and nontender.? Skin: Skin warm and dry.? Normal skin color.? Normal skin turgor.? Extremities: No lower extremity edema.? No calf ttp. 5/5 strength to bilateral upper and lower extremities + TTP to right shoulder overlying the clavicle. Patient has significantly limited range of motion secondary to pain. Normal distal sensation. No wrist drop. Capillary refill to upper extremities less than 2 seconds bilaterally. Neuro: Oriented X 3.? No motor deficit.? No sensory deficit. CN 2-12 intact Medical Decision Making Medical Decision Making MDM Narrative: 79-year-old male presents with right shoulder pain Physical exam + TTP to right shoulder overlying the clavicle. Patient has significantly limited range of motion secondary to pain. Normal distal sensation. No wrist drop. Capillary refill to upper extremities less than 2 seconds bilaterally. History and physical exam concerning for rotator cuff injury. I obtained records from [facility] that do not show fracture dislocation of the right shoulder. No falls or trauma since these x-rays were obtained. No signs of threat to limb, ischemic limb or neurovascular compromise. Unlikely atypical presentation of ACS. I did take the [facility] to call [facility] and [facility] to [facility]'s [facility] office I spoke to nurse Garcia who states patient has an MRI ordered of the right shoulder since April 30 however it is still processing, I told her that in the emergency department setting we do not perform routine MRIs of the right shoulder. She should reach out to see if they can expedite his MRI on an outpatient basis. There is no threat to [place] therefore an emergent MRI is not indicated. I offered patient pain meds however he states he is okay. He will call the [facility] and [facility] to [facility] his [facility]. I advised him to follow up with the orthopedic team. Educated patient on diagnosis and treatment plan, answered all question, patient verbalizes understanding. At this time patient will be discharged home, advised to return with new or worsening symptoms. Educated on worrisome signs and symptoms and when to return. At this time I feel comfortable discharge home. Differential Diagnosis Differential Diagnoses: The differential diagnosis associated with the presentation includes (History and physical exam concerning for rotator cuff injury. I obtained records from [facility] that do not show fracture dislocation of the right shoulder. No falls or trauma since these x-rays were obtained. No signs of threat to limb, ischemic limb or neurovascular compromise. Unlikely atypica) Admission/Observation Consideration of admission/observation: Escalation of care including admission/observation considered (No indication) Independent Interpretation I performed an independent interpretation of an: Plain X-Ray (X-ray of the right shoulder with no acute fracture osseous abnormality. This x-ray was from 05/27/2024 at 23:46) Critical Care Time Critical Care Time Critical Care Time: No Discharge Plan Discharge Clinical Impression: Acute pain of right shoulder Patient Disposition: Home, Self-Care Instructions: Shoulder Pain (ED), Arm Pain (ED) Additional Instructions: Take your medications as prescribed. If you were prescribed antibiotics today, it is important that you take your medication to their entirety, do not skip any doses, do not finish them early. Follow-up with your primary care provider this week. Return to the emergency department with new or worsening symptoms. Such as fevers, chills, chest pain, shortness of breath, nausea, vomiting, dizziness, headache, vision changes, lethargy In case of emergency call 911 Please call the [facility] and see if they can make your MRI urgent so you can get it done sooner. Ultimately you need an MRI and you need to see an scheduling specialist. Prescriptions: No Action Lantus Solostar U-100 Insulin 100 unit/mL (3 mL) insulin pen 75 unit subcut BID Referrals: Luis Aggarwal NP [Primary Care Provider] - 2 days Stand Alone Forms: Work/School Release Interventions: ED Discharge Assessment Last Done: 05/29/24 11:11 Discharge Date/Time: 05/29/24 11:14 Print Language: German
[2024-05-29 11:11] VITALS: BP 145/58; PULSE 68; RESP 16; TEMP 37; O2SAT 98
== END 2024-05-29 11:14 | disposition home or self-care (01) ==
PROVIDERS: Emergency Provider Emergency Medicine; PCP Nurse Practitioner Family
DX: S49.91XA Unspecified injury of right shoulder and upper arm, initial encounter (principal); M25.511 Pain in right shoulder; X58.XXXA Exposure to other specified factors, initial encounter; Y93.9 Activity, unspecified; Y92.9 Unspecified place or not applicable; Y99.8 Other external cause status; E11.9 Type 2 diabetes mellitus without complications; Z79.4 Long term (current) use of insulin; Z79.899 Other long term (current) drug therapy
CPT/HCPCS: 99282